=== PATIENT | female | born 1945 | race Caucasian/White ===

== ENCOUNTER 2017-10-23 22:46 | Emergency (ER) | payer OTHER ==
--- OUTSIDE RECORDS SUMMARY | 2017-10-23 22:48 | XMS REPORT | Continuity of Care Document ---
:1945 Author Organization Interface Problems Problem Status Onset Classification Date Comments Source Date Reported Diverticulosis Active Problem 03/15/2017 [facility] Diverticulitis Active Problem 03/15/2017 [facility] Morbid obesity Active Problem 03/15/2017 [facility] Medications Medication Details Route Status Patient Ordering Order Source Instructions Provider Date Citalopram 40 MG 40 mg=1 Active [facility] Tablet tab, PO, 018 [facility] [Celexa] Daily, 0 Refill(s) spironolactone 25 25 mg=1 Active [facility] mg oral tablet tab, PO, 018 [facility] BID, 0 Refill(s) atorvastatin 20 mg 20 mg=1 Active [facility] oral tablet tab, PO, 018 [facility] Daily, 0 Refill(s) cyclobenzaprine 10 10 mg=1 Active [facility] mg oral tablet tab, PO, 018 [facility] TID, 0 Refill(s) Klor-Con 10 10 mEq, Active [facility] PO, BID, 0 018 [facility] Refill(s) Furosemide 40 MG 40 mg=1 Active [facility] Tablet tab, PO, 018 [facility] Daily, 0 Refill(s) gabapentin 100 MG 300 mg=3 Active [facility] Capsule cap, PO, 018 [facility] TID, 0 Refill(s) Acetaminophen 325 1 tab, PO, Active [facility] / Hydrocodone Q6H, 0 018 [facility] Bitartrate 5 MG Refill(s) Oral Tablet [Hudson 5/325] Omeprazole PO, Daily, Active [facility] 0 018 [facility] Refill(s) Allergies, Adverse Reactions, Alerts Substance Category Reaction Severity Reaction Status Date Comments Source type Reported codeine Assertion Drug Active [facility] Zanaflex Assertion Drug Active [facility] Demerol HCl Assertion Drug Active [facility] Latex Assertion Drug Active [facility] Immunizations Immunization Date Given Site Status Last Updated Comments Source Results Order Results Value Reference Date Interpretation Comments Source Name Range Vital Signs Vital Sign Value Date Comments Source BMI Calculated 35.39 03/12/2017 [facility] Weight 89.176 03/12/2017 [facility] Height 158.75 cm 03/12/2017 [facility] Temperature Oral (F) 97.8 F 03/12/2017 [facility] Heart Rate 76 03/12/2017 [facility] Systolic (mm Hg) 164 03/12/2017 [facility] Diastolic (mm Hg) 83 03/12/2017 [facility] Encounters Location Location Encounter Encounter Reason Attending ADM DC Status Source Details Type Number For Provider Date Date Visit [facility] Phone [phone] 03/11 03/13 [facility] [id number] JULES GALLEGOS 03/[address] [facility] [id number] Jules Gallegos 03/12 03/13 [facility] /2017 [facility] Procedures Procedure Code Date Perfomer Comments Source Bladder operation [id number] [facility] Hysterectomy [id number] [facility] Operation [id number] [facility]
--- OUTSIDE RECORDS SUMMARY | 2017-10-23 22:48 | XMS REPORT | Summary of Care ---
:1945 Author Organization [facility] Sp[facility] Clinic [facility] Address [address] [place], [place] [id number]- Encounter [facility] Denezl(FIN) [id number] Date(s): 03/12/17 - 03/12/17 [facility] Spine [address] [phone] Discharge Disposition: Home or Self Care Attending Physician: Morris Bergman MD Vital Signs Most recent to oldest [Reference Range]: 1 Height 158.75 cm (03/12/17 4:05 PM) Temperature Oral [96.4-99.1 DegF] 97.8 DegF (03/12/17 4:05 PM) Blood Pressure [90-140/60-90 mmHg] 164/83 mmHg *HI* (03/12/17 4:05 PM) Peripheral Pulse Rate [60-100 bpm] 76 bpm (03/12/17 4:05 PM) Weight 89.176 kg (03/12/17 4:05 PM) Body Mass Index 35.39 m2 (03/12/17 4:05 PM) Problem List Condition Effective Dates Status Health Status Informant Diverticulosis(Confirmed) Active Diverticulitis(Confirmed) Active Morbid obesity(Confirmed) Active Allergies, Adverse Reactions, Alerts Substance Reaction Severity Status codeine Active Zanaflex Active Demerol HCl Active Latex Active Medications atorvastatin 20 mg oral tablet 20 mg=1 tab, PO, Daily, 0 Refill(s) Start Date: 03/12/17 Status: OrderedCeleXA 40 mg oral tablet 40 mg=1 tab, PO, Daily, 0 Refill(s) Start Date: 03/12/17 Status: Orderedcyclobenzaprine 10 mg oral tablet 10 mg=1 tab, PO, TID, 0 Refill(s) Start Date: 03/12/17 Status: Orderedfurosemide 40 mg oral tablet 40 mg=1 tab, PO, Daily, 0 Refill(s) Start Date: 03/12/17 Status: Orderedgabapentin 100 mg oral capsule 300 mg=3 cap, PO, TID, 0 Refill(s) Start Date: 03/12/17 Status: OrderedKlor-Con 10 10 mEq, PO, BID, 0 Refill(s) Start Date: 03/12/17 Status: OrderedNorco 5/325 oral tablet 1 tab, PO, Q6H, 0 Refill(s) Start Date: 03/12/17 Status: Orderedomeprazole PO, Daily, 0 Refill(s) Start Date: 03/12/17 Status: Orderedspironolactone 25 mg oral tablet 25 mg=1 tab, PO, BID, 0 Refill(s) Start Date: 03/12/17 Status: Ordered Results No data available for this section Immunizations No data available for this section Procedures Procedure Date Related Diagnosis Body Site Bladder operation Hysterectomy Operation Social History Social History Type Response Smoking Status Current every day smoker; Type: Cigarettes; Lives with someone who smokes; Cigarette Smoking Last 365 Days Yes; Reg Smoking Cessation Counseling No Assessment and Plan No data available for this section
--- OUTSIDE RECORDS SUMMARY | 2017-10-23 22:48 | XMS REPORT | Summary of Care ---
:1945 Author Organization [facility] Spine [facility] Address [address] [place], [place] [id number]- Encounter [facility] Encntr_alias(FIN) [id number] Date(s): 03/11/17 - 03/12/17 [facility] Spine [address] [phone] Vital Signs No data available for this section Problem List Condition Effective Dates Status Health Status Informant Diverticulosis(Confirmed) Active Diverticulitis(Confirmed) Active Morbid obesity(Confirmed) Active Allergies, Adverse Reactions, Alerts Substance Reaction Severity Status codeine Active Zanaflex Active Demerol HCl Active Latex Active Medications No data available for this section Results No data available for this section [...]
[2017-10-23] MEDS ORDERED: NA CHLORIDE 0.9% 1,000 ML ONE (23:32)
[2017-10-23] MEDS ORDERED: PANTOPRAZOLE 40 MG INJ ONE (23:32)
[2017-10-23] MEDS ORDERED: ONDANSETRON 4 MG/2 ML VIAL ONE (23:35)
[2017-10-23 23:43] LABS: Absolute Lymphocytes (CBC) 2.6 K/uL (0.7-4.9); Absolute Neutrophil 7.2 K/uL (1.8-8.0); Basophils % 0.5 % (0-1.3); Eosinophils % 1.2 % (0-4.4); Hematocrit 39.1 % (36.0-45.0); Lymphocytes % 23.8 % (15.3-44.8); MCH 30.3 pg (27.0-35.0); Monocytes % 8.7 % (3.3-12.3); RBC Red Blood Cell Count 4.39 M/uL (3.86-4.86)
[2017-10-24 00:02] LABS: Urine Glucose NEGATIVE (NEG)
[2017-10-24 00:03] LABS: Urine Blood NEGATIVE (NEG); Urine Protein NEGATIVE (NEG); Urine pH 5.5 (5.0-7.0)
[2017-10-24 00:07] LABS: Urine Bacteria <20 /HPF (<20); Urine Culture Reflex Order REFLEXED; Urine Mucus LIGHT /HPF (NONE SEEN); Urine RBC <5 /HPF (NONE SEEN)
[2017-10-24 00:08] LABS: ALT/SGPT 28 U/L (12-78); AST/SGOT 18 U/L (15-37); Albumin 3.9 g/dL (3.4-5.0); Alkaline Phosphatase 93 U/L (45-117); Amylase Level 61 U/L (25-115); BUN Blood Urea Nitrogen 23 mg/dL (7-18); Bicarbonate 26 mmol/L (21-32); Bilirubin Direct < 0.1 mg/dL (0-0.2); Bilirubin Total 0.2 mg/dL (0.2-1.0); Glucose Level 107 mg/dL (74-106); Lipase 226 U/L (73-393); Potassium 3.7 mmol/L (3.5-5.1); Protein, Total 7.3 g/dL (6.4-8.2); Sodium Level 140 mmol/L (136-145)
--- NOTE | 2017-10-24 03:36 | EDPHYS ---
Physician Documentation [facility] Name: Blanka Parker Age: 72 yrs Sex: Female : 1945 Arrival Date: 10/23/2017 Time: 22:46 Bed 23 Private MD: ED Physician Stevan Saucedo HPI: 10/23 23:10 This 72 yrs old Female presents to ER via Ambulatory with complaints of cp Abdominal Pain. 23:10 The patient presents with abdominal pain in the epigastric area, in the upper abdomen. cp 23:10 Onset: The symptoms/episode began/occurred 2 week(s) ago. cp 23:10 The symptoms radiate to back. Associated signs and symptoms: Pertinent positives: cp nausea, Pertinent negatives: anorexia, blood in stools, chest pain, constipation, vomiting. The symptoms are described as waxing/waning. Modifying factors: the symptoms are aggravated by pressure. Historical: - Allergies: 22:55 Codeine; aj 22:55 Demerol; aj 22:55 Latex, Natural Rubber; aj 22:55 Lidocaine; aj 22:55 PENICILLINS; aj 22:55 Zanaflex; aj 22:55 COLLAGENASE; aj 22:55 VENLAFAXINE; aj - Home Meds: 22:55 carvedilol Oral [Active]; Furosemide Oral as needed [Active]; Lasix Oral [Active]; aj losartan-hydrochlorothiazide Oral [Active]; Prilosec Oral [Active]; - PMHx: 22:55 degenerative joint disease; High Cholesterol; Hypertension; Diverticulitis; GERD; aj - PSHx: 22:55 Mesh bladder sling; Neck surgery; Bilat hand surgery; Cholecystectomy; Foot surgery; aj Ankle surgery; - Immunization history:: Adult Immunizations up to date. - Social history:: Smoking status: Patient/guardian denies using tobacco. - Ebola Screening: : Patient negative for fever greater than or equal to 101.5 degrees Fahrenheit, and additional compatible Ebola Virus Disease symptoms Patient denies exposure to infectious person Patient denies travel to an Ebola-affected area in the 21 days before illness onset No symptoms or risks identified at this time. ROS: 23:15 Constitutional: Negative for body aches, chills, fever, poor PO intake. cp 23:15 Eyes: Negative for injury, pain, redness, and discharge. cp 23:15 ENT: Negative for drainage from ear(s), ear pain, sore throat, difficulty swallowing, difficulty handling secretions. 23:15 Cardiovascular: Negative for edema, palpitations. 23:15 Respiratory: Negative for cough, dyspnea on exertion, shortness of breath, wheezing. 23:15 Abdomen/GI: Positive for abdominal pain, nausea, of the epigastric area and upper abdomen, Negative for vomiting, diarrhea, constipation, anorexia, black/tarry stool, rectal bleeding. 23:15 Back: Positive for radiated pain. 23:15 : Negative for urinary symptoms, flank pain. 23:15 Skin: Negative for cellulitis, rash. 23:15 Neuro: Negative for altered mental status, headache, syncope, near syncope, weakness. 23:15 All other systems are negative. Exam: 23:20 Constitutional: The patient appears in no acute distress, alert, awake, cp non-diaphoretic, non-toxic, well developed, well nourished. 23:20 Head/Face: Normocephalic, atraumatic. Eyes: Pupils equal round and reactive to light, cp extra-ocular motions intact. Lids and lashes normal. Conjunctiva and sclera are non-icteric and not injected. Cornea within normal limits. Periorbital areas with no swelling, redness, or edema. ENT: Nares patent. No nasal discharge, no septal abnormalities noted. Tympanic membranes are normal and external auditory canals are clear. Oropharynx with no redness, swelling, or masses, exudates, or evidence of obstruction, uvula midline. Mucous membranes moist. Chest/axilla: Normal chest wall appearance and motion. Nontender with no deformity. No lesions are appreciated. 23:20 Cardiovascular: Rate: normal, Rhythm: regular, Pulses: Pulses are 2+ in right radial artery and left radial artery. Edema: is not appreciated, JVD: is not appreciated. 23:20 Respiratory: the patient does not display signs of respiratory distress, Respirations: normal, no use of accessory muscles, no retractions, no splinting, no tachypnea, labored breathing, is not present, Breath sounds: are clear throughout, no decreased breath sounds, no stridor, no wheezing. 23:20 Abdomen/GI: Inspection: abdomen appears normal, Bowel sounds: active, all quadrants, Palpation: soft, in all quadrants, moderate abdominal tenderness, in the epigastric area, rebound tenderness, is not appreciated, voluntary guarding, is elicited in the epigastric area, involuntary guarding, is not appreciated. 23:20 Back: CVA tenderness, is absent. 23:20 Skin: cellulitis, is not appreciated, no rash present. 23:20 Neuro: Orientation: to person, place \T\ time. Mentation: lucid, able to follow commands, Cerebellar function: is grossly normal, Motor: moves all fours, strength is normal, Sensation: no obvious gross deficits. 10/24 00:02 ECG was reviewed by the Attending Physician. cp Vital Signs: 10/23 22:56 BP 152 / 74; Pulse 85; Resp 16; Temp 97.2; Pulse Ox 98% on R/A; Weight 83.91 kg; Height aj 5 ft. 2 in. (157.48 cm); 10/24 00:21 BP 120 / 63; Pulse 68; Pulse Ox 96% ; rv 02:02 BP 119 / 75; Pulse 73; Pulse Ox 99% on R/A; rv 02:49 BP 128 / 72; Pulse 71; Pulse Ox 95% on R/A; rv 03:26 BP 126 / 67; Pulse 71; Resp 18 S; Pulse Ox 93% on R/A; bb 10/23 22:56 Body Mass Index 33.84 (83.91 kg, 157.48 cm) aj MDM: 10/23 22:54 Patient medically screened. sawyer 10/24 00:00 Differential diagnosis: AAA, acute coronary syndrome, bowel obstruction, gastritis, cp gastroesophageal reflux disease, pancreatitis, Peptic Ulcer Disease, Perf. Duodenal Ulcer, Perf. Gastric Ulcer, Ureterolithiasis, urinary tract infection. 03:34 Data reviewed: vital signs, nurses notes, lab test result(s), EKG, radiologic studies, cp CT scan. 03:34 Test interpretation: by ED physician or midlevel provider: ECG, plain radiologic cp studies. Counseling: I had a detailed discussion with the patient and/or guardian regarding: the historical points, exam findings, and any diagnostic results supporting the discharge/admit diagnosis, lab results, radiology results, the need for outpatient follow up, a general surgeon, to return to the emergency department if symptoms worsen or persist or if there are any questions or concerns that arise at home. Response to treatment: the patient's symptoms have mildly improved after treatment, and as a result, I will discharge patient. Special discussion: Based on the patient's Hx, exam, and Dx evaluation, there is no indication for emergent surgery or inpatient Tx. It is understood by the patient/guardian that if the Sx's persist or worsen they need to return immediately for re-evaluation. ED course: VSS. Symptoms improved with meds. No vomiting observed in ED. Will discharge to home for continued monitoring. 10/23 23:09 Order name: Amylase, Serum cp 10/23 23:09 Order name: Basic Metabolic Panel cp 10/23 23:09 Order name: CBC with Diff 10/23 23:09 Order name: Creatinine for Radiology; Complete Time: 02:40 cp 10/23 23:09 Order name: Hepatic Function; Complete Time: 02:40 cp 10/23 23:09 Order name: Lipase; Complete Time: 02:40 cp 10/23 23:09 Order name: Urine Microscopic Only; Complete Time: 02:40 10/24 02:40 Interpretation: Normal except: UWBC 20-50; SQEPI 5-10. cp 10/23 23:09 Order name: XRAY Chest (1 view) cp 10/23 23:09 Order name: Troponin I; Complete Time: 02:40 cp 10/24 02:41 Interpretation: Within normal limits: TROP < 0.02. cp 10/23 23:09 Order name: Amylase Level; Complete Time: 02:40 EDMS 10/23 23:09 Order name: Basic Metabolic Panel; Complete Time: 02:40 EDMS 10/24 02:40 Interpretation: Normal except: CL 108; GLUC 107; BUN 23; GFR 55. cp 10/23 23:09 Order name: CBC with Automated Diff; Complete Time: 02:40 EDMS 10/24 02:41 Interpretation: Normal except: WBC 11.0. cp 10/23 23:36 Order name: Urine Dipstick--Ancillary (enter results); Complete Time: 02:40 ms 10/24 02:41 Interpretation: Normal except: UESTR 1+. cp 10/24 00:09 Order name: Urine Culture EDNE 10/23 23:09 Order name: IV Saline Lock; Complete Time: 23:39 cp 10/23 23:09 Order name: Labs collected and sent; Complete Time: 23:39 cp 10/23 23:09 Order name: Urine Dipstick-Ancillary (obtain specimen); Complete Time: 23:39 cp 10/23 23:09 Order name: EKG; Complete Time: 23:10 cp 10/23 23:09 Order name: EKG - Nurse/Tech; Complete Time: 00:02 cp 10/23 23:09 Order name: CT Abd/Pelvis - W/Contrast: may give oral contrast cp EC:02 Rate is 68 beats/min. Rhythm is regular. OR interval is normal. QRS interval is normal. cp QT interval is normal. T waves are Flattened in lead aVL. Interpreted by me. Reviewed by me. Administered Medications: 10/23 23:30 Drug: Zofran 4 mg Route: IVP; Site: left antecubital; rv 23:52 Follow up: Response: No adverse reaction rv 23:30 Drug: ProTONIX 40 mg Route: IVP; Site: left antecubital; rv 23:51 Follow up: Response: No adverse reaction rv 23:38 Drug: NS 0.9% 250 ml Route: IV; Rate: bolus; Site: left antecubital; rv 23:51 Drug: NS 0.9% 1000 ml Route: IV; Rate: 100 ml/hr; Site: left antecubital; rv 10/24 03:59 Follow up: IV Status: Order to discontinue infusion; IV Intake: 500ml mw 03:45 Drug: CarafATE 1 grams Route: PO; mw 04:00 Follow up: Response: No adverse reaction mw 03:48 Drug: Pepcid 20 mg Route: IVP; Site: left antecubital; mw 03:59 Follow up: Response: No adverse reaction Disposition: 07:26 Co-signature as Attending Physician, Stevan Saucedo MD I agree with the assessment and sawyer plan of care. Disposition: 10/24/17 03:35 Discharged to Home. Impression: Epigastric pain. - Condition is Stable. - Discharge Instructions: Gastritis, Adult, Gastroesophageal Reflux Disease, Adult. - Prescriptions for Carafate 1 gram Oral Tablet - take 1 tablet by ORAL route 4 times per day take on an empty stomach, beginning on waking and last dose at bedtime. dissolve in small amount warm water prior to ingestion; 100 tablet. Protonix 40 mg Oral Tablet - take 1 tablet by ORAL route once daily; 30 tablet. Zofran 4 mg Oral Tablet - take 1 tablet by ORAL route every 12 hours As needed; 20 tablet. - Medication Reconciliation Form, Thank You Letter, Antibiotic Education, Prescription Opioid Use form. - Follow up: Nithin Nieto MD; When: 2 - 3 days; Reason: Recheck today's complaints. - Problem is new. - Symptoms have improved. Signatures: Dispatcher [employer] EDMS Kristy Borja RN RN mw Myers, Amanda, RN RN aj Anderson, Corey, MD MD cha Page, Corey, PA PA Wesley Mccain RN RN rv Corrections: (The following items were deleted from the chart) 04:00 03:35 10/24/2017 03:35 Discharged to Home. Impression: Epigastric pain. Condition is mw Stable. Forms are Medication Reconciliation Form, Thank You Letter, Antibiotic Education, Prescription Opioid Use. Follow up: Nithin Nieto; When: 2 - 3 days; Reason: Recheck today's complaints. Problem is new. Symptoms have improved. cp
--- NOTE | 2017-10-24 03:36 | ER ---
Nurse's Notes [facility] Name: Blanka Parker Age: 72 yrs Sex: Female : 1945 Arrival Date: 10/23/2017 Time: 22:46 Bed 23 Private MD: Diagnosis: Epigastric pain Presentation: 10/23 22:53 Presenting complaint: Patient states: Epigastric pain for 2 weeks. Denies Nausea. aj Transition of care: patient was not received from another setting of care. Onset of symptoms was October 09, 2017. Risk Assessment: Do you want to hurt yourself or someone else? Patient reports no desire to harm self or others. Initial Sepsis Screen: Does the patient meet any 2 criteria? No. Patient's initial sepsis screen is negative. Does the patient have a suspected source of infection? No. Patient's initial sepsis screen is negative. Care prior to arrival: None. 22:53 Method Of Arrival: Ambulatory aj 22:53 Acuity: PETEY 3 aj Triage Assessment: 22:55 General: Appears in no apparent distress. comfortable, Behavior is calm, cooperative, aj appropriate for age. Pain: Complains of pain in epigastric area and right upper quadrant. Neuro: Level of Consciousness is awake, alert, obeys commands, Oriented to person, place, time, situation, Appropriate for age. Respiratory: Airway is patent Respiratory effort is even, unlabored, Respiratory pattern is regular, symmetrical. GI: Reports upper abdominal pain. Derm: Skin is intact, is healthy with good turgor, Skin is pink, warm \T\ dry. normal. Historical: - Allergies: 22:55 Codeine; aj 22:55 Demerol; aj 22:55 Latex, Natural Rubber; aj 22:55 Lidocaine; aj 22:55 PENICILLINS; aj 22:55 Zanaflex; aj 22:55 COLLAGENASE; aj 22:55 VENLAFAXINE; aj - Home Meds: 22:55 carvedilol Oral [Active]; Furosemide Oral as needed [Active]; Lasix Oral [Active]; aj losartan-hydrochlorothiazide Oral [Active]; Prilosec Oral [Active]; - PMHx: 22:55 degenerative joint disease; High Cholesterol; Hypertension; Diverticulitis; GERD; aj - PSHx: 22:55 Mesh bladder sling; Neck surgery; Bilat hand surgery; Cholecystectomy; Foot surgery; aj Ankle surgery; - Immunization history:: Adult Immunizations up to date. - Social history:: Smoking status: Patient/guardian denies using tobacco. - Ebola Screening: : Patient negative for fever greater than or equal to 101.5 degrees Fahrenheit, and additional compatible Ebola Virus Disease symptoms Patient denies exposure to infectious person Patient denies travel to an Ebola-affected area in the 21 days before illness onset No symptoms or risks identified at this time. Screenin:43 Abuse screen: Denies threats or abuse. Denies injuries from another. Nutritional rv screening: No deficits noted. Tuberculosis screening: No symptoms or risk factors identified. Fall Risk None identified. Assessment: 23:15 General: Appears in no apparent distress. comfortable, Behavior is calm, cooperative. rv 23:15 Pain: Complains of pain in abdomen. Neuro: Level of Consciousness is awake, alert, rv obeys commands, Oriented to person, place, time, situation. Cardiovascular: Capillary refill < 3 seconds. Respiratory: Airway is patent. GI: Bowel sounds present X 4 quads. Abd is soft and non tender X 4 quads. : No signs and/or symptoms were reported regarding the genitourinary system. EENT: No signs and/or symptoms were reported regarding the EENT system. Derm: Skin is intact. 10/24 00:22 Reassessment: Patient appears in no apparent distress at this time. Patient and/or rv family updated on plan of care and expected duration. Pain level reassessed. Patient is alert, oriented x 3, equal unlabored respirations, skin warm/dry/pink. AWAITING FOR CT SCAN. 02:15 Reassessment: Patient appears in no apparent distress at this time. Patient and/or rv family updated on plan of care and expected duration. Pain level reassessed. Patient is alert, oriented x 3, equal unlabored respirations, skin warm/dry/pink. 02:49 Reassessment: Patient appears in no apparent distress at this time. Patient and/or rv family updated on plan of care and expected duration. Pain level reassessed. Patient is alert, oriented x 3, equal unlabored respirations, skin warm/dry/pink. awaiting ct scan result. 03:25 Reassessment: Patient and/or family updated on plan of care and expected duration. Pain bb level reassessed. Patient is alert, oriented x 3, equal unlabored respirations, skin warm/dry/pink. pt resting quietly, awaiting CT scan results, spouse at bedside. 03:57 Reassessment: Patient and/or family updated on plan of care and expected duration. Pain mw level reassessed. Patient is alert, oriented x 3, equal unlabored respirations, skin warm/dry/pink. pt verbalized understanding of and agrees to plan of care discharge instructions given pt ambulated with steady gait to exit accompanied by spouse. Vital Signs: 10/23 22:56 BP 152 / 74; Pulse 85; Resp 16; Temp 97.2; Pulse Ox 98% on R/A; Weight 83.91 kg; Height aj 5 ft. 2 in. (157.48 cm); 10/24 00:21 BP 120 / 63; Pulse 68; Pulse Ox 96% ; rv 02:02 BP 119 / 75; Pulse 73; Pulse Ox 99% on R/A; rv 02:49 BP 128 / 72; Pulse 71; Pulse Ox 95% on R/A; rv 03:26 BP 126 / 67; Pulse 71; Resp 18 S; Pulse Ox 93% on R/A; bb 10/23 22:56 Body Mass Index 33.84 (83.91 kg, 157.48 cm) ED Course: 10/23 22:46 Patient arrived in ED. ds1 22:52 Lynette Contreras LVN is Primary Nurse. ed1 22:54 Triage completed. aj 22:54 Stevan Paiz PA is PHCP. cp 22:54 Stevan Saucedo MD is Attending Physician. cp 22:56 Arm band placed on left wrist. Patient placed in an exam room. aj 23:15 Inserted saline lock: 20 gauge in left antecubital area, using aseptic technique. rv 23:18 Primary Nurse role handed off by Lynette Contreras LVN ed1 23:33 XRAY Chest (1 view) In Process Unspecified. EDMS 23:43 Patient has correct armband on for positive identification. Placed in gown. Bed in low rv position. Call light in reach. Side rails up X 1. Adult w/ patient. manager title on. Pulse ox on. NIBP on. 10/24 00:01 Oral contrast given. eh 01:55 CT Abd/Pelvis - W/Contrast: may give oral contrast In Process Unspecified. EDMS 02:15 Awaiting radiology results. rv 03:25 Rachna Jade, SCOTTIE is Primary Nurse. bb 03:34 Nithin Nieto MD is Referral Physician. cp 03:58 No provider procedures requiring assistance completed. IV discontinued, intact, mw bleeding controlled, No redness/swelling at site. Pressure dressing applied. Administered Medications: 10/23 23:30 Drug: Zofran 4 mg Route: IVP; Site: left antecubital; rv 23:52 Follow up: Response: No adverse reaction rv 23:30 Drug: ProTONIX 40 mg Route: IVP; Site: left antecubital; rv 23:51 Follow up: Response: No adverse reaction rv 23:38 Drug: NS 0.9% 250 ml Route: IV; Rate: bolus; Site: left antecubital; rv 23:51 Drug: NS 0.9% 1000 ml Route: IV; Rate: 100 ml/hr; Site: left antecubital; rv 10/24 03:59 Follow up: IV Status: Order to discontinue infusion; IV Intake: 500ml mw 03:45 Drug: CarafATE 1 grams Route: PO; mw 04:00 Follow up: Response: No adverse reaction mw 03:48 Drug: Pepcid 20 mg Route: IVP; Site: left antecubital; mw 03:59 Follow up: Response: No adverse reaction mw Intake: 03:59 IV: 500ml; Total: 500ml. mw Outcome: 03:35 Discharge ordered by MD. cp 03:58 Discharged to home ambulatory, with family. mw 03:58 Condition: stable 03:58 Discharge instructions given to patient, Instructed on discharge instructions, follow up and referral plans. medication usage, Demonstrated understanding of instructions, follow-up care, medications, Prescriptions given X 3. 04:00 Patient left the ED. mw Addendum: 10/28/2017 12:12 Addendum: Culture Results: Positive urine culture. Patient was not prescribed d m5 antibiotics at discharge. Report given to IZAIAH for further evaluation and then to pneumatic tube repairer for follow up with patient. Phone call Attempt #1 pt not at home. Left message with person that answered the phone. 10/31/2017 11:52 Addendum: Culture Results: Phone call Attempt #2 no answer no call back Certified l a1 letter sent to listed address for patient. Signatures: Dispatcher [employer] YANG Perez Diana, RN RN dm5 Jonh, Kristy, RN RN Ivis Henning, RN RN helena Mc, Lai Zheng, Cindi ds1 Rachna Jade, RN RN Lynette Solano, POLICE SERGEANT POLICE SERGEANT ed1 Niall Chow, RN RN la1 Stevan Paiz, VASILE Sanchez, Wesley, RN RN rv
[2017-10-24] MEDS ORDERED: FAMOTIDINE 20 MG/2 ML VIAL IV ONE (03:49)
[2017-10-24] MEDS ORDERED: SUCRALFATE 1 GM TABLET ONE (03:49)
[2017-10-24 04:06] VITALS: TEMP 97.2
[2017-10-24 04:09] VITALS: BP 126/67; O2SAT 93
--- NOTE | 2017-10-24 07:02 | EKG ---
Test Date: 2017-10-23 Test Time: 23:53:42 [employer] Sales Representative: MEASUREMENT RESULTS: Intervals: Rate: 68 PA: 196 QRSD: 80 QT: 422 QTc: 448 [place]: P: 55 PA: 196 QRS: 33 T: 65 INTERPRETIVE STATEMENTS: Normal sinus rhythm Normal ECG Compared to ECG 01/13/2016 04:08:56 Myocardial infarct finding no longer present Electronically Signed On 10-24-17 07:01:25 CDT by Anupam Perry
--- NOTE | 2017-10-24 07:59 | RAD REPORT ---
EXAM DESCRIPTION: RAD - Chest Single View - 10/23/2017 11:32 pm CLINICAL HISTORY: upper abdomen pain Chest pain. COMPARISON: CHEST SINGLE VIEW dated 05/20/2015; CHEST SINGLE VIEW dated 02/14/2015; CHEST SINGLE VIEW dated 09/15/2014; CHEST SINGLE VIEW dated 04/13/2014 FINDINGS: Portable technique limits examination quality. The lungs are grossly clear. The heart is mildly prominent in size. No displaced fractures. IMPRESSION: No acute intrathoracic process suspected.
--- NOTE | 2017-10-24 08:28 | RAD REPORT ---
EXAM DESCRIPTION: CTAbdomen Pelvis W Contrast - 10/24/2017 3:47 am CLINICAL HISTORY: Abdominal pain. upper abdomen pain COMPARISON: Abdomen Pelvis W Contrast dated 06/19/2016; Abdomen Pelvis W Contrast dated 03/20/2016 ; Abdomen Pelvis W Contrast dated 01/13/2016; CT ABD PELVIS W CONTRAST dated 05/20/2015 TECHNIQUE: Biphasic CT imaging of the abdomen and pelvis was performed with 100 ml non-ionic IV cont rast. All CT scans are performed using dose optimization technique as appropriate and may include automated exposure control or mA/KV adjustment according to patient size. FINDINGS: The lung bases are clear.Cholecystectomy clips. The liver, spleen, pancreas, adrenal glands and right kidney are within normal limits. Small 2-3 mm s tones suspect in the left kidney without hydronephrosis. Several benign left renal cysts are present. No bowel obstruction, free air, free fluid or abscess. Prominent sigmoid diverticulosis is present. No evidence of significant lymphadenopathy. Degenerative changes are present at L5-S1 with grade 1 anterolisthesis noted. Postsurgical changes ar e present along the pelvic floor. Hysterectomy. IMPRESSION: No acute intra-abdominal or pelvic finding. Left nephrolithiasis without hydronephrosis.
== END 2017-10-24 04:00 | disposition home or self-care (01) ==
LOC: ER 22:46
DX: R10.13 Epigastric pain (principal); I10 Essential (primary) hypertension; E78.00 Pure hypercholesterolemia, unspecified; K21.9 Gastro-esophageal reflux disease without esophagitis; Z88.0 Allergy status to penicillin; Z88.5 Allergy status to narcotic agent; Z88.8 Allergy status to other drugs, medicaments and biological substances; Z91.040 Latex allergy status
CPT/HCPCS: 36415; 71045; 74177; 80048; 80076; 82150; 83690; 84484; 85025; 87077; 87086; 87088; 87186; 93005; C9113; J2405; J7030; Q9967; 81003; 81015; 96361; 96374; 96375; 99284

== ENCOUNTER 2017-12-26 19:22 | Emergency (ER) | payer OTHER ==
--- OUTSIDE RECORDS SUMMARY | 2017-12-26 19:24 | XMS REPORT | Continuity of Care Document ---
[...] Neuro Bitartrate 5 MG Refill(s) Oral Tablet [[place]t 5/325] Omeprazole PO, Daily, Active Mischer 0 [...] Date Comments Source BMI Calculated 35.39 03/12/2017 [facility] Weight 89.176 03/12/2017 [facility] Height 158.75 cm 03/12/2017 [facility] Temperature Oral (F) 97.8 F 03/12/2017 [facility] Heart Rate 76 03/12/2017 [facility] Systolic (mm Hg) 164 03/12/2017 [facility] Diastolic (mm Hg) 83 03/12/2017 [facility] Encounters Location Location Encounter Encounter Reason Attending ADM DC Status Source Details Type Number For Provider Date Date Visit [facility] Phone [id number] 03/11 03/13 [facility] Message [facility] [id number] JULES GALLEGOS 03/12 [facility] [id number] Jules Gallegos 03/12 03/13 [facility] /2017 [facility] Procedures Procedure Code Date Perfomer Comments Source Bladder operation [id number] [facility] Hysterectomy [id number] [facility] Operation [id number] [facility]
[2017-12-26] MEDS ORDERED: ASPIRIN 81 MG CHEWABLE TABLET ONE (20:24)
[2017-12-26] MEDS ORDERED: PANTOPRAZOLE 40 MG INJ ONE (20:24)
[2017-12-26 20:48] LABS: Absolute Lymphocytes (CBC) 2.1 K/uL (0.7-4.9); Absolute Monocytes 0.5 K/uL (0.1-1.3); Basophils % 0.6 % (0-1.3); Eosinophils % 2.9 % (0-4.4); Hematocrit 36.3 % (36.0-45.0); Lymphocytes % 26.6 % (15.3-44.8); MCH 31.4 pg (27.0-35.0); MCV 89.8 fL (80-100); MPV 8.2 fL (7.6-11.3); Monocytes % 6.5 % (3.3-12.3); RBC Red Blood Cell Count 4.04 M/uL (3.86-4.86)
[2017-12-26 20:49] LABS: Protime INR 1.22
[2017-12-26 21:13] LABS: ALT/SGPT 29 U/L (12-78); AST/SGOT 17 U/L (15-37); Albumin 3.4 g/dL (3.4-5.0); Alkaline Phosphatase 90 U/L (45-117); BUN Blood Urea Nitrogen 14 mg/dL (7-18); Bicarbonate 25 mmol/L (21-32); Bilirubin Direct 0.1 mg/dL (0-0.2); Bilirubin Total 0.3 mg/dL (0.2-1.0); Glucose Level 131 mg/dL (74-106); Lipase 173 U/L (73-393); Magnesium 1.6 mg/dL (1.8-2.4); NT PRO-BNP 23 pg/mL (<125); Potassium 3.7 mmol/L (3.5-5.1); Protein, Total 6.9 g/dL (6.4-8.2); Sodium Level 141 mmol/L (136-145); Troponin (Emerg Dept Use Only) < 0.02 ng/mL (0.0-0.045)
--- NOTE | 2017-12-26 21:19 | RAD REPORT ---
EXAM DESCRIPTION: RAD - Chest Single View - 12/26/2017 8:39 pm CLINICAL HISTORY: Cough and congestion, chest pain COMPARISON: October 23 TECHNIQUE: AP portable chest image was obtained 2017 hours . FINDINGS: No focal lung parenchymal process. Interstitial markings are mildly prominent but not efrain rly different. No failure or volume overload. Heart size is upper normal, similar to comparison. Mary cardial fat pads are present. No vascular engorgement. No measurable pleural effusion and no pneumoth orax. No acute bony abnormality seen. No acute aortic findings suspected. IMPRESSION: No acute cardiopulmonary process. Chest findings are stable from October 23.
[2017-12-26] MEDS ORDERED: ACETAMINOPHEN 325 MG TABLET ONE (22:27)
[2017-12-26] MEDS ORDERED: MAGNESIUM SULFATE 1 gm IVPB 1 GM/100 ML BAG IV ONE (23:10)
--- NOTE | 2017-12-27 01:16 | ER ---
Nurse's Notes [facility] Name: Blanka Parker Age: 72 yrs Sex: Female : 1945 Arrival Date: 12/26/2017 Time: 19:24 Bed 30 Private MD: Maxim Trujillo Diagnosis: Chest pain, unspecified;Gastro-esophageal reflux disease Presentation: 12/26 19:40 Presenting complaint: Patient states: cough, congestion, burning in throat and chest ak1 pain with cough since . pt taking doxycycline twice daily. Transition of care: patient was not received from another setting of care. Onset of symptoms is unknown. Risk Assessment: Do you want to hurt yourself or someone else? Patient reports no desire to harm self or others. Initial Sepsis Screen: Does the patient meet any 2 criteria? No. Patient's initial sepsis screen is negative. Does the patient have a suspected source of infection? No. Patient's initial sepsis screen is negative. Care prior to arrival: None. 19:40 Method Of Arrival: Ambulatory ak1 19:40 Acuity: PETEY 3 ak1 Triage Assessment: 19:40 General: Appears in no apparent distress. Behavior is cooperative, anxious. ak1 Historical: - Allergies: 19:40 Codeine; ak1 19:40 COLLAGENASE; ak1 19:40 Demerol; ak1 19:40 Lidocaine; ak1 19:40 Zanaflex; ak1 19:40 VENLAFAXINE; ak1 19:40 PENICILLINS; ak1 19:40 Latex, Natural Rubber; ak1 - Home Meds: 19:40 carvedilol Oral [Active]; Furosemide Oral as needed [Active]; Lasix Oral [Active]; ak1 losartan-hydrochlorothiazide Oral [Active]; Prilosec Oral [Active]; - PMHx: 19:40 degenerative joint disease; Diverticulitis; GERD; High Cholesterol; Hypertension; ak1 - PSHx: 19:40 Mesh bladder sling; Neck surgery; Bilat hand surgery; Cholecystectomy; Foot surgery; ak1 Ankle surgery; - Immunization history:: Adult Immunizations unknown. - Social history:: Smoking status: Patient uses tobacco products, smokes one pack cigarettes per day. - Ebola Screening: : No symptoms or risks identified at this time. Screenin:42 Abuse screen: Denies threats or abuse. Denies injuries from another. Nutritional ak1 screening: No deficits noted. Tuberculosis screening: No symptoms or risk factors identified. Fall Risk None identified. 22:25 The patient has not been NPO before screening. The patient is alert, able to follow tl3 commands. The patient does not exhibit slurred or garbled speech The patient is not exhibiting difficulty speaking. The patient does not exhibit difficulty understanding words. The patient is able to swallow own secretions with no drooling or need for suction. Patient tolerated one teaspoon of water. No drooling, immediate coughing, gurgling, or clearing of the throat was noted. The patient tolerated 90mL of water. No drooling, immediate coughing, gurgling, or clearing of the throat was noted. The patient passed the bedside swallow screening. Oral medications may be given as ordered. Contact Physician for further diet orders. Provider notified of bedside swallow screening results: Stevan BURNETTE. Assessment: 20:04 General: Appears uncomfortable, well groomed, well developed, well nourished, Behavior tl3 is calm, cooperative, appropriate for age. Pain: Complains of pain in esophageal pain. Neuro: Level of Consciousness is awake, alert, obeys commands, Oriented to person, place, time, situation, Appropriate for age. Cardiovascular: Patient's skin is warm and dry. Respiratory: Airway is patent Respiratory effort is even, unlabored, Respiratory pattern is regular, symmetrical. GI: Reports epigastric pain, indigestion, getting worse for the last couple of weeks, burning goes all the way up and causes her to cough and have SOB, taking Prilosec, Zantac, Mylanta and Tums to no avail. : No signs and/or symptoms were reported regarding the genitourinary system. Derm: No signs and/or symptoms reported regarding the dermatologic system. Musculoskeletal: No signs and/or symptoms reported regarding the musculoskeletal system. 20:04 Reassessment: pain in the back of the neck, loss of energy due to lack of sleep and tl3 occasional chills. 22:22 Reassessment: No changes from previously documented assessment. Patient and/or family tl3 updated on plan of care and expected duration. Pain level reassessed. Patient is alert, oriented x 3, equal unlabored respirations, skin warm/dry/pink. pt reports pain to the right temporal area, provider notified and orders recieved. 23:48 Reassessment: Patient appears in no apparent distress at this time. No changes from tl3 previously documented assessment. Patient and/or family updated on plan of care and expected duration. Pain level reassessed. Patient is alert, oriented x 3, equal unlabored respirations, skin warm/dry/pink. 12/27 00:27 Reassessment: Patient appears in no apparent distress at this time. No changes from tl3 previously documented assessment. Patient and/or family updated on plan of care and expected duration. Pain level reassessed. Patient is alert, oriented x 3, equal unlabored respirations, skin warm/dry/pink. sed rate and troponin drawn and sent to lab. Vital Signs: 12/26 19:40 BP 130 / 72; Pulse 102; Resp 18; Temp 98.7(O); Pulse Ox 97% on R/A; Weight 83.91 kg ak1 (R); Height 5 ft. 2 in. (157.48 cm) (R); Pain 2/10; 21:17 BP 118 / 56; Pulse 78; Resp 18; Pulse Ox 97% on R/A; mg2 22:22 BP 111 / 65; Pulse 76; Resp 18; Pulse Ox 99% on R/A; tl3 23:48 BP 125 / 65; Pulse 78; Resp 18; Pulse Ox 97% on R/A; tl3 12/27 00:27 BP 122 / 65; Pulse 74; Resp 18; Pulse Ox 97% on R/A; tl3 12/26 19:40 Body Mass Index 33.84 (83.91 kg, 157.48 cm) ak1 ED Course: 12/26 19:24 Patient arrived in ED. es 19:25 Maxim Trujillo MD is Private Physician. es 19:40 Arm band placed on Patient placed in waiting room, Patient notified of wait time. ak1 19:41 Triage completed. ak1 19:54 Stevan Paiz PA is PHCP. cp 19:54 Stevan Saucedo MD is Attending Physician. cp 20:04 Arelis Bennett, SCOTTIE is Primary Nurse. tl3 20:04 Patient has correct armband on for positive identification. Placed in gown. Bed in low tl3 position. Call light in reach. Side rails up X 1. Pulse ox on. NIBP on. 20:04 No provider procedures requiring assistance completed. tl3 20:39 XRAY Chest (1 view) In Process Unspecified. EDMS 21:18 Inserted saline lock: 20 gauge in right antecubital area, using aseptic technique. mg2 Blood collected. 22:[address] mw3 22:56 CT completed. Patient tolerated procedure well. Patient moved back from CT. mw3 22:57 CT Chest W/ Con In Process Unspecified. EDMS 12/27 01:15 Александр Melendez MD is Referral Physician. cp 01:15 Maxim Trujillo MD is Referral Physician. cp 01:33 IV discontinued, intact, bleeding controlled, No redness/swelling at site. Pressure mg2 dressing applied. Administered Medications: 12/26 20:19 Drug: Aspirin Chewable Tablet 324 mg Route: PO; mg2 22:24 Follow up: Response: No adverse reaction tl3 20:44 Drug: ProTONIX 40 mg Route: IVP; Site: right antecubital; mg2 22:24 Follow up: Response: No adverse reaction tl3 22:24 Drug: Tylenol 650 mg Route: PO; tl3 12/27 00:28 Follow up: Response: No adverse reaction tl3 12/26 23:08 Drug: Magnesium Sulfate 1 grams Route: IVPB; Infused Over: 1 hrs; Site: right mg2 antecubital; Delivery: Primary tubing; 12/27 00:28 Follow up: IV Status: Completed infusion; IV Intake: 100ml tl3 Intake: 00:28 IV: 100ml; Total: 100ml. tl3 Outcome: 01:16 Discharge ordered by . cp 01:33 Discharged to home ambulatory, with family. mg2 01:33 Condition: stable 01:33 Discharge instructions given to patient, family, Instructed on discharge instructions, follow up and referral plans. medication usage, Demonstrated understanding of instructions, follow-up care, medications, Prescriptions given X 2. 01:34 Patient left the ED. mg2 Signatures: Dispatcher [employer] Jacquelyn Arteaga Amber RN RN ak1 Stevan Paiz PA PA cp Lowrey, Tammy, RN RN tl3 Lucian Bain RN RN mg2 Maria C Yu mw3
--- NOTE | 2017-12-27 01:17 | EDPHYS ---
Physician Documentation [facility] Name: Blanka Parker Age: 72 yrs Sex: Female : 1945 Arrival Date: 12/26/2017 Time: 19:24 Bed 30 Private MD: Maxim Trujillo ED Physician Stevan Saucedo HPI: 12/26 20:00 This 72 yrs old Female presents to ER via Ambulatory with complaints of Cough.cp 20:00 The patient or guardian reports cough, that is intermittent, with productive sputum, cp that is white. Onset: The symptoms/episode began/occurred 2 week(s) ago. 20:00 Severity of symptoms: in the emergency department the symptoms are unchanged, despite cp home interventions, patient reports taking previously prescribed doxycycline for 1 week [employer]. 20:00 Associated signs and symptoms: Pertinent positives: chest pain, with cough, diarrhea, cp sore throat, difficulty swallowing solids. patient reports she feels like GERD is worse, Pertinent negatives: diarrhea, fever, sore throat, vomiting. Historical: - Allergies: 19:40 Codeine; ak1 19:40 COLLAGENASE; ak1 19:40 Demerol; ak1 19:40 Lidocaine; ak1 19:40 Zanaflex; ak1 19:40 VENLAFAXINE; ak1 19:40 PENICILLINS; ak1 19:40 Latex, Natural Rubber; ak1 - Home Meds: 19:40 carvedilol Oral [Active]; Furosemide Oral as needed [Active]; Lasix Oral [Active]; ak1 losartan-hydrochlorothiazide Oral [Active]; Prilosec Oral [Active]; - PMHx: 19:40 degenerative joint disease; Diverticulitis; GERD; High Cholesterol; Hypertension; ak1 - PSHx: 19:40 Mesh bladder sling; Neck surgery; Bilat hand surgery; Cholecystectomy; Foot surgery; ak1 Ankle surgery; - Immunization history:: Adult Immunizations unknown. - Social history:: Smoking status: Patient uses tobacco products, smokes one pack cigarettes per day. - Ebola Screening: : No symptoms or risks identified at this time. ROS: 20:05 Constitutional: Negative for body aches, chills, fever, poor PO intake. cp 20:05 Eyes: Negative for injury, pain, redness, and discharge. cp 20:05 ENT: Positive for difficulty swallowing, Negative for drainage from ear(s), ear pain, sinus pain, sore throat, difficulty handling secretions. 20:05 Neck: Negative for pain with movement, pain at rest, swelling, tenderness. 20:05 Cardiovascular: Positive for chest pain, with cough, Negative for edema, palpitations. 20:05 Respiratory: Positive for cough, with white sputum, Negative for hemoptysis, orthopnea, wheezing. 20:05 Abdomen/GI: Negative for nausea, vomiting, and diarrhea, constipation, anorexia, black/tarry stool, rectal bleeding. 20:05 Back: Negative for pain at rest, pain with movement. 20:05 : Negative for urinary symptoms. 20:05 Skin: Negative for cellulitis, rash. 20:05 Neuro: Negative for altered mental status, headache, syncope, near syncope, visual changes, weakness. 20:05 All other systems are negative. Exam: 20:12 Constitutional: The patient appears in no acute distress, alert, awake, cp non-diaphoretic, non-toxic, well developed, well nourished. 20:12 Head/Face: Normocephalic, atraumatic. Eyes: Pupils equal round and reactive to light, cp extra-ocular motions intact. Lids and lashes normal. Conjunctiva and sclera are non-icteric and not injected. Cornea within normal limits. Periorbital areas with no swelling, redness, or edema. ENT: Nares patent. No nasal discharge, no septal abnormalities noted. Tympanic membranes are normal and external auditory canals are clear. Oropharynx with no redness, swelling, or masses, exudates, or evidence of obstruction, uvula midline. Mucous membranes moist. Neck: Trachea midline, no thyromegaly or masses palpated, and no cervical lymphadenopathy. Supple, full range of motion without nuchal rigidity, or vertebral point tenderness. No Meningismus. Chest/axilla: Normal chest wall appearance and motion. Nontender with no deformity. No lesions are appreciated. 20:12 Cardiovascular: Rate: tachycardic, Rhythm: regular, Pulses: Pulses are 2+ in right radial artery and left radial artery. Edema: is not appreciated, JVD: is not appreciated. 20:12 Respiratory: the patient does not display signs of respiratory distress, Respirations: normal, no use of accessory muscles, no retractions, no splinting, no tachypnea, labored breathing, is not present, Breath sounds: are clear throughout, no decreased breath sounds, no stridor, no wheezing. 20:12 Abdomen/GI: Inspection: abdomen appears normal, Bowel sounds: active, all quadrants, Palpation: soft, in all quadrants, nontender, in all quadrants, rebound tenderness, is not appreciated, voluntary guarding, is not appreciated, involuntary guarding, is not appreciated. 20:12 Back: pain, is absent, ROM is normal. 20:12 Skin: cellulitis, is not appreciated, no rash present. 20:12 Neuro: Orientation: to person, place \T\ time. Mentation: is normal, Cerebellar function: is grossly normal, Motor: moves all fours, strength is normal, Sensation: no obvious gross deficits, Gait: is steady. 20:35 ECG was reviewed by the Attending Physician. cp 12/27 00:50 ECG was reviewed by the Attending Physician. cp Vital Signs: 12/26 19:40 BP 130 / 72; Pulse 102; Resp 18; Temp 98.7(O); Pulse Ox 97% on R/A; Weight 83.91 kg ak1 (R); Height 5 ft. 2 in. (157.48 cm) (R); Pain 2/10; 21:17 BP 118 / 56; Pulse 78; Resp 18; Pulse Ox 97% on R/A; mg2 22:22 BP 111 / 65; Pulse 76; Resp 18; Pulse Ox 99% on R/A; tl3 23:48 BP 125 / 65; Pulse 78; Resp 18; Pulse Ox 97% on R/A; tl3 12/27 00:27 BP 122 / 65; Pulse 74; Resp 18; Pulse Ox 97% on R/A; tl3 12/26 19:40 Body Mass Index 33.84 (83.91 kg, 157.48 cm) ak1 MDM: 12/26 19:54 Patient medically screened. cp 12/27 01:15 Data reviewed: vital signs, nurses notes, lab test result(s), EKG, radiologic studies, cp CT scan, plain films, and as a result, I will discharge patient. 01:15 Test interpretation: by ED physician or midlevel provider: ECG, plain radiologic cp studies. Special discussion: Based on the patient's history, exam, and Dx evaluation, there is no indication for emergent intervention or inpatient Tx. It is understood by the patient/guardian that if the Sx's persist or worsen they need to return immediately for re-evaluation. ED course: VSS. Symptoms improved with meds. Will discharge to home for continued monitoring. 12/26 20:10 Order name: Basic Metabolic Panel; Complete Time: 21:37 cp 12/26 21:37 Interpretation: Normal except: CL 109; GLUC 131; GFR 55. cp 12/26 20:10 Order name: CBC with Diff; Complete Time: 21:37 cp 12/26 20:10 Order name: LFT's; Complete Time: 21:37 cp 12/26 21:38 Interpretation: Normal except: A/G 1.0. cp 12/26 20:10 Order name: Magnesium; Complete Time: 21:37 cp 12/26 22:27 Interpretation: Abnormal: MG 1.6. cp 12/26 20:10 Order name: NT PRO-BNP; Complete Time: 21:37 cp 12/26 20:10 Order name: PT-INR; Complete Time: 21:37 cp 12/26 22:28 Interpretation: Normal except: PT 14.4. cp 12/26 20:10 Order name: Troponin (emerg Dept Use Only); Complete Time: 21:37 cp 12/26 21:39 Interpretation: Within normal limits: TROPED < 0.02. cp 12/26 20:10 Order name: XRAY Chest (1 view); Complete Time: 21:37 cp 12/26 20:10 Order name: Lipase; Complete Time: 21:37 cp 12/26 22:32 Order name: CT Chest W/ Con cp 12/27 00:27 Order name: Troponin (Emerg Dept Use Only); Complete Time: 01:14 EDMS 12/27 00:27 Order name: Sedimentation Rate, Westergren; Complete Time: 01:14 EDMS 12/26 20:10 Order name: EKG; Complete Time: 20:11 cp 12/26 20:10 Order name: Cardiac monitoring; Complete Time: 20:51 cp 12/26 20:10 Order name: EKG - Nurse/Tech; Complete Time: 20:51 cp 12/26 20:10 Order name: IV Saline Lock; Complete Time: 20:51 cp 12/26 20:10 Order name: Labs collected and sent; Complete Time: 20:52 cp 12/26 20:10 Order name: O2 Per Protocol; Complete Time: 20:52 cp 12/26 20:10 Order name: O2 Sat Monitoring; Complete Time: 20:52 cp 12/26 20:10 Order name: Swallow Screen; Complete Time: 22:25 cp 12/27 00:06 Order name: EKG - Nurse/Tech; Complete Time: 01:03 cp EC/19 20:35 Rate is 87 beats/min. Rhythm is regular. OR interval is normal. QRS interval is normal. cp QT interval is normal. Interpreted by me. Reviewed by me. 12/27 00:50 Rate is 76 beats/min. Rhythm is regular. OR interval is prolonged at 204 msec. QRS cp interval is normal. QT interval is normal. Clinical impression: Abnormal EKG without significant change. Interpreted by me. Reviewed by me. Administered Medications: 12/26 20:19 Drug: Aspirin Chewable Tablet 324 mg Route: PO; mg2 22:24 Follow up: Response: No adverse reaction tl3 20:44 Drug: ProTONIX 40 mg Route: IVP; Site: right antecubital; mg2 22:24 Follow up: Response: No adverse reaction tl3 22:24 Drug: Tylenol 650 mg Route: PO; tl3 12/27 00:28 Follow up: Response: No adverse reaction tl3 12/26 23:08 Drug: Magnesium Sulfate 1 grams Route: IVPB; Infused Over: 1 hrs; Site: right mg2 antecubital; Delivery: Primary tubing; 12/27 00:28 Follow up: IV Status: Completed infusion; IV Intake: 100ml tl3 Disposition: 06:45 Co-signature as Attending Physician, Stevan Saucedo MD I agree with the assessment and sawyer plan of care. Disposition: 12/27/17 01:16 Discharged to Home. Impression: Chest pain, unspecified, Gastro-esophageal reflux disease. - Condition is Stable. - Discharge Instructions: Nonspecific Chest Pain, Food Choices for Gastroesophageal Reflux Disease, Adult, Gastroesophageal Reflux Disease, Adult, Aspirin and Your Heart. - Prescriptions for Carafate 1 gram Oral Tablet - take 1 tablet by ORAL route 4 times per day for 14-21 days take on an empty stomach, beginning on waking and last dose at bedtime. dissolve tablet in small amount warm water prior to ingestion; 100 tablet. Zofran 4 mg Oral Tablet - take 1 tablet by ORAL route every 12 hours As needed; 20 tablet. - Medication Reconciliation Form, Thank You Letter, Antibiotic Education, Prescription Opioid Use form. - Follow up: Александр Melendez MD; When: 2 - 3 days; Reason: Recheck today's complaints. Follow up: Maxim Trujillo MD; When: 2 - 3 days; Reason: Recheck today's complaints. - Problem is new. - Symptoms have improved. Signatures: Dispatcher [employer] EDWI Stevan Saucedo MD MD cha Krenek, Amber RN RN ak1 Stevan Paiz PA PA cp Arelis Bennett, RN RN tl3 Lucian Bain RN RN mg2 Corrections: (The following items were deleted from the chart) 01:19 00:43 WESTERGREN SEDRATE+H.LAB.BRZ ordered. EDMS EDMS 01:20 00:43 TROPONIN I+C.LAB.BRZ ordered. EDWI EDMS 01:34 01:16 12/27/2017 01:16 Discharged to Home. Impression: Chest pain, unspecified; mg2 Gastro-esophageal reflux disease. Condition is Stable. Forms are Medication Reconciliation Form, Thank You Letter, Antibiotic Education, Prescription Opioid Use. Follow up: Александр Melendez; When: 2 - 3 days; Reason: Recheck today's complaints. Follow up: Maxim Trujillo; When: 2 - 3 days; Reason: Recheck today's complaints. Problem is new. Symptoms have improved. cp
[2017-12-27 01:59] VITALS: TEMP 98.7
[2017-12-27 02:03] VITALS: O2SAT 97
[2017-12-27 02:04] VITALS: BP 122/65
--- NOTE | 2017-12-27 08:37 | RAD REPORT ---
EXAM DESCRIPTION: CT - Thorax W/ Con - 12/27/2017 6:31 am CLINICAL HISTORY: Cough and dysphasia/chest and COMPARISON: [address] abdomen TECHNIQUE: Computed axial tomography of the chest was obtained. 100 cc Isovue 300 was administered i ntravenously. Preliminary report was generated by virtual radiologic and reviewed prior to this dicta tion All CT scans are performed using dose optimization technique as appropriate and may include automated exposure control or mA/KV adjustment according to patient size. FINDINGS: A couple of tiny lung nodules bilaterally are unchanged and benign. No mediastinal or hilar lymphadenopathy is seen. A pleural effusion is not present. A pericardial effusion is not seen Small right adrenal nodule is unchanged and is benign. No gross abnormality of the esophagus is seen IMPRESSION: No acute abnormality is displayed
--- NOTE | 2017-12-28 17:36 | EKG ---
Test Date: 2017-12-27 Test Time: 00:47:29 Cap Inspector: TL MEASUREMENT RESULTS: Intervals: Rate: 76 NC: 204 QRSD: 74 QT: 406 QTc: 456 [place]: P: 53 NC: 204 QRS: -12 T: 59 INTERPRETIVE STATEMENTS: Normal sinus rhythm Inferior infarct, age undetermined Abnormal ECG Compared to ECG 12/26/2017 20:28:56 No significant changes Electronically Signed On 12-28-17 17:33:51 CDT by Anupam Perry
--- NOTE | 2017-12-28 17:37 | EKG ---
Test Date: 2017-12-26 Test Time: 20:28:56 Project Geologist: TL MEASUREMENT RESULTS: Intervals: Rate: 87 NV: 196 QRSD: 80 QT: 362 QTc: 435 [place]: P: 37 NV: 196 QRS: -1 T: 51 INTERPRETIVE STATEMENTS: Normal sinus rhythm Inferior infarct, age undetermined Abnormal ECG Compared to ECG 10/23/2017 23:53:42 Myocardial infarct finding now present Electronically Signed On 12-28-17 17:33:59 CDT by Anupam Perry
== END 2017-12-27 01:34 | disposition home or self-care (01) ==
LOC: ER 19:22
DX: K21.9 Gastro-esophageal reflux disease without esophagitis (principal); F17.210 Nicotine dependence, cigarettes, uncomplicated; I10 Essential (primary) hypertension; E78.00 Pure hypercholesterolemia, unspecified; Z88.0 Allergy status to penicillin; Z88.5 Allergy status to narcotic agent; Z88.8 Allergy status to other drugs, medicaments and biological substances; Z91.040 Latex allergy status
CPT/HCPCS: 36415 ×2; 71045; 71260; 80048; 80076; 83690; 83735; 83880; 84484 ×2; 85025; 85610; 85652; 93005 ×2; 96365; 96375; 99284; C9113; J3475; Q9967

== ENCOUNTER 2018-03-15 17:55 | Emergency (ER) | payer OTHER ==
--- OUTSIDE RECORDS SUMMARY | 2018-03-15 17:58 | XMS REPORT | Continuity of Care Document ---
[...] Neuro Bitartrate 5 MG Refill(s) Oral Tablet [[place] 5/325] Omeprazole PO, Daily, Active Mischer 0 [...] Date Comments Source BMI Calculated 35.39 03/12/2017 [facility] Weight 89.176 03/12/2017 [facility] Height 158.75 cm 03/12/2017 [facility] Temperature Oral (F) 97.8 F 03/12/2017 [facility] Heart Rate 76 03/12/2017 [facility] Systolic (mm Hg) 164 03/12/2017 [facility] Diastolic (mm Hg) 83 03/12/2017 [facility] Encounters Location Location Encounter Encounter Reason Attending ADM DC Status Source Details Type Number For Provider Date Date Visit [facility] Phone [id number] 03/11 03/13 [facility] Message [facility] [id number] JULES GALLEGOS 03/12 [facility] [id number] Jules Gallegos 03/12 03/13 [facility] /2017 [facility] Procedures Procedure Code Date Perfomer Comments Source Bladder operation [id number] [facility] Hysterectomy [id number] [facility] Operation [id number] [facility]
[2018-03-15] MEDS ORDERED: HYDROCODONE/APAP 5/325 MG TAB ONE (19:11)
--- NOTE | 2018-03-15 19:24 | RAD REPORT ---
EXAM DESCRIPTION: RAD - Elbow Left 3 View - 03/15/2018 6:47 pm CLINICAL HISTORY: PAIN COMPARISON: No comparisons FINDINGS: No bone or joint abnormality of the left elbow is identified.
--- NOTE | 2018-03-15 20:01 | RAD REPORT ---
EXAM DESCRIPTION: US - Extremity Venous Uni Ltd - 03/15/2018 7:37 pm CLINICAL HISTORY: Pain;Swelling Left arm pain and swelling. COMPARISON: EXT VENOUS W COMPRESSION MURPHY dated 06/15/2010 FINDINGS: Left upper extremity venous system was interrogated with Doppler technique. Normal flow, c ompressibility and augmentation was noted. There is no DVT present. IMPRESSION: No evidence of left upper extremity deep venous thrombosis.
--- NOTE | 2018-03-15 20:14 | ER ---
Nurse's Notes [facility] Name: Blanka Parker Age: 72 yrs Sex: Female : 1945 Arrival Date: 03/15/2018 Time: 17:59 Bed 13 Private MD: Diagnosis: Pain in left elbow Presentation: 03/15 17:59 Presenting complaint: Patient states: my L elbow is hurting for a week now and today is hj worse, its swollen and its warm; denies trauma to the area, pain in the morning is worse; denies taking pain meds RN PROVIDER RELATIONS:. Transition of care: patient was not received from another setting of care. Onset of symptoms was March 15, 2018. Risk Assessment: Do you want to hurt yourself or someone else? Patient reports no desire to harm self or others. Initial Sepsis Screen: Does the patient meet any 2 criteria? No. Patient's initial sepsis screen is negative. Does the patient have a suspected source of infection? No. Patient's initial sepsis screen is negative. Care prior to arrival: None. 17:59 Method Of Arrival: Ambulatory 17:59 Acuity: PETEY 4 hj Triage Assessment: 18:04 General: Appears in no apparent distress. uncomfortable, Behavior is calm, cooperative, hj appropriate for age. Pain: Complains of pain in left arm Pain currently is 7 out of 10 on a pain scale. Historical: - Allergies: 18:03 Codeine; hj 18:03 COLLAGENASE; hj 18:03 Demerol; hj 18:03 Latex, Natural Rubber; hj 18:03 Lidocaine; hj 18:03 PENICILLINS; hj 18:03 VENLAFAXINE; hj 18:03 Zanaflex; hj - Home Meds: 18:03 carvedilol Oral [Active]; amlodipine-olmesartan oral oral [Active]; Furosemide Oral as hj needed [Active]; Prilosec Oral [Active]; - PMHx: 18:03 degenerative joint disease; Diverticulitis; GERD; High Cholesterol; Hypertension; hj - PSHx: 18:03 Mesh bladder sling; Neck surgery; Bilat hand surgery; Cholecystectomy; Foot surgery; hj Ankle surgery; - Immunization history:: Adult Immunizations not up to date. - Social history:: Smoking status: Patient/guardian denies using tobacco, Patient/guardian denies using alcohol. - Ebola Screening: : Patient negative for fever greater than or equal to 101.5 degrees Fahrenheit, and additional compatible Ebola Virus Disease symptoms Patient denies exposure to infectious person Patient denies travel to an Ebola-affected area in the 21 days before illness onset. Screenin:04 Abuse screen: Denies threats or abuse. Denies injuries from another. Nutritional hj screening: No deficits noted. Tuberculosis screening: No symptoms or risk factors identified. Fall Risk None identified. Assessment: 18:00 General: Appears in no apparent distress. comfortable, well groomed, well developed, tl3 well nourished, Behavior is calm, cooperative, appropriate for age. Pain: Complains of pain in left arm. Neuro: Level of Consciousness is awake, alert, obeys commands, Oriented to person, place, time, situation, Appropriate for age. Cardiovascular: Patient's skin is warm and dry. Respiratory: Airway is patent Respiratory effort is even, unlabored, Respiratory pattern is regular, symmetrical. GI: No signs and/or symptoms were reported involving the gastrointestinal system. : No signs and/or symptoms were reported regarding the genitourinary system. EENT: No signs and/or symptoms were reported regarding the EENT system. Derm: No signs and/or symptoms reported regarding the dermatologic system. Musculoskeletal: Range of motion: intact in all extremities, Reports pain in left arm since 4 days. 19:15 Reassessment: Patient appears in no apparent distress at this time. Patient and/or cc3 family updated on plan of care and expected duration. Pain level reassessed. Patient is alert, oriented x 3, equal unlabored respirations, skin warm/dry/pink. Received this female patient from morning shift SCOTTIE Infante as a case of left arm pain. No IV cannula in situ. 20:30 Reassessment: Patient appears in no apparent distress at this time. Patient and/or cc3 family updated on plan of care and expected duration. Pain level reassessed. Patient is alert, oriented x 3, equal unlabored respirations, skin warm/dry/pink. SUELLEN Goldberg discharged the patient home, no prescription given. Patient left ER vitally stable and ambulatory with her . Vital Signs: 18:04 BP 105 / 54; Pulse 72; Resp 18; Temp 98.8(TE); Pulse Ox 96% on R/A; Weight 83.91 kg; hj Height 5 ft. 2 in. (157.48 cm); Pain 7/10; 18:45 BP 98 / 45; Pulse 96; Resp 18; Pulse Ox 96% on R/A; tl3 19:06 BP 114 / 59; Pulse 82; Resp 18 S; Pulse Ox 97% on R/A; cc3 20:15 BP 105 / 65; Pulse 82; Resp 17 S; Pulse Ox 97% on R/A; cc3 18:04 Body Mass Index 33.83 (83.91 kg, 157.48 cm) ED Course: 17:59 Patient arrived in ED. hj 18:01 Triage completed. hj 18:04 Arm band placed on right wrist. hj 18:04 Patient has correct armband on for positive identification. Bed in low position. Call light in reach. Side rails up X 1. 18:15 Yusuf An NP is PHCP. pm1 18:16 Stevan Saucedo MD is Attending Physician. pm1 18:45 No provider procedures requiring assistance completed. Patient did not have IV access tl3 during this emergency room visit. 18:46 X-ray completed. Portable x-ray completed in exam room. Patient tolerated procedure sg4 well. 18:47 Elbow Left 3 View XRAY In Process Unspecified. EDMS 18:47 Arelis Bennett, SCOTTIE is Primary Nurse. tl3 19:37 Ultrasound completed. Patient tolerated well. sg3 19:38 Extremity Venous Uni Ltd US In Process Unspecified. EDMS Administered Medications: 18:51 Drug: [place] 5 mg-325 mg 1 tabs Route: PO; tl3 19:49 Follow up: Response: No adverse reaction; Pain is decreased cc3 Outcome: 20:13 Discharge ordered by . pm1 20:30 Discharged to home ambulatory, with family. cc3 20:30 Condition: stable 20:30 Discharge instructions given to patient, family, Instructed on discharge instructions, follow up and referral plans. Demonstrated understanding of instructions, follow-up care. 20:33 Patient left the ED. cc3 Signatures: Dispatcher [employer] EDMS Ramiro Eugene RN RN Yusuf An NP STAFF RN pm1 Brissa Bear sg3 Arelis Bennett RN RN tl3 Bella Goins cc3 Ambreen Ortega sg4 Corrections: (The following items were deleted from the chart) 18:06 18:04 Pulse 72bpm; Resp 18bpm; Pulse Ox 96% RA; Temp 98.8F Temporal; 83.91 kg; Height 5 hj ft. 2 in.; BMI: 33.8; Pain 7/10; hj
--- NOTE | 2018-03-15 20:14 | EDPHYS ---
Physician Documentation [facility] Name: Blanka Parker Age: 72 yrs Sex: Female : 1945 Arrival Date: 03/15/2018 Time: 17:59 Bed 13 Private MD: ED Physician Stevan Saucedo HPI: 03/15 19:00 This 72 yrs old Female presents to ER via Ambulatory with complaints of Left pm1 Arm Pain. 19:00 The patient or guardian complains of pain, swelling. The complaints affect the medial pm1 aspect of left antecubital area. Context: The problem was sustained at home, resulted from unknown cause. Onset: The symptoms/episode began/occurred 1 week(s) ago. Treatment prior to arrival includes: no previous treatment. Modifying factors: The symptoms are alleviated by nothing. the symptoms are aggravated by nothing. Associated signs and symptoms: Pertinent negatives: decreased range of motion, deformity, fever, numbness, tingling. Severity of symptoms: in the emergency department the symptoms are unchanged. The patient has not experienced similar symptoms in the past. The patient has not recently seen a physician. Worse in the AM and better throughout the day. Historical: - Allergies: 18:03 Codeine; hj 18:03 COLLAGENASE; hj 18:03 Demerol; hj 18:03 Latex, Natural Rubber; hj 18:03 Lidocaine; hj 18:03 PENICILLINS; hj 18:03 VENLAFAXINE; hj 18:03 Zanaflex; hj - Home Meds: 18:03 carvedilol Oral [Active]; amlodipine-olmesartan oral oral [Active]; Furosemide Oral as hj needed [Active]; Prilosec Oral [Active]; - PMHx: 18:03 degenerative joint disease; Diverticulitis; GERD; High Cholesterol; Hypertension; hj - PSHx: 18:03 Mesh bladder sling; Neck surgery; Bilat hand surgery; Cholecystectomy; Foot surgery; hj Ankle surgery; - Immunization history:: Adult Immunizations not up to date. - Social history:: Smoking status: Patient/guardian denies using tobacco, Patient/guardian denies using alcohol. - Ebola Screening: : Patient negative for fever greater than or equal to 101.5 degrees Fahrenheit, and additional compatible Ebola Virus Disease symptoms Patient denies exposure to infectious person Patient denies travel to an Ebola-affected area in the 21 days before illness onset. ROS: 19:00 Constitutional: Negative for fever, chills, and weight loss, Eyes: Negative for injury, pm1 pain, redness, and discharge, ENT: Negative for injury, pain, and discharge, Neck: Negative for injury, pain, and swelling, Cardiovascular: Negative for chest pain, palpitations, and edema, Respiratory: Negative for shortness of breath, cough, wheezing, and pleuritic chest pain, Abdomen/GI: Negative for abdominal pain, nausea, vomiting, diarrhea, and constipation, Back: Negative for injury and pain, : Negative for injury, bleeding, discharge, and swelling. 19:00 Skin: Negative for injury, rash, and discoloration, Neuro: Negative for headache, weakness, numbness, tingling, and seizure. 19:00 MS/extremity: Positive for pain, swelling, of the medial aspect of left antecubital area. Exam: 19:00 Constitutional: This is a well developed, well nourished patient who is awake, alert, pm1 and in no acute distress. Head/Face: Normocephalic, atraumatic. Eyes: Pupils equal round and reactive to light, extra-ocular motions intact. Lids and lashes normal. Conjunctiva and sclera are non-icteric and not injected. Cornea within normal limits. Periorbital areas with no swelling, redness, or edema. ENT: Nares patent. No nasal discharge, no septal abnormalities noted. Tympanic membranes are normal and external auditory canals are clear. Oropharynx with no redness, swelling, or masses, exudates, or evidence of obstruction, uvula midline. Mucous membranes moist. Neck: Trachea midline, no thyromegaly or masses palpated, and no cervical lymphadenopathy. Supple, full range of motion without nuchal rigidity, or vertebral point tenderness. No Meningismus. Chest/axilla: Normal chest wall appearance and motion. Nontender with no deformity. No lesions are appreciated. Cardiovascular: Regular rate and rhythm with a normal S1 and S2. No gallops, murmurs, or rubs. No pulse deficits. Respiratory: Lungs have equal breath sounds bilaterally, clear to auscultation and percussion. No rales, rhonchi or wheezes noted. No increased work of breathing, no retractions or nasal flaring. Abdomen/GI: Soft, non-tender, with normal bowel sounds. No distension or tympany. No guarding or rebound. No evidence of tenderness throughout. Back: No spinal tenderness. No costovertebral tenderness. Full range of motion. Skin: Warm, dry with normal turgor. Normal color with no rashes, no lesions, and no evidence of cellulitis. 19:00 Musculoskeletal/extremity: Extremities: grossly normal except: noted in the medial aspect of left antecubital area: pain, swelling, a "ball", ROM: intact in all extremities, Circulation is intact in all extremities. Pulses: are normal with no appreciated deficits, Sensation intact. 19:00 Neuro: Orientation: is normal, Motor: is normal, moves all fours, strength is normal, strength is 5/5 in all extremities. Vital Signs: 18:04 BP 105 / 54; Pulse 72; Resp 18; Temp 98.8(TE); Pulse Ox 96% on R/A; Weight 83.91 kg; hj Height 5 ft. 2 in. (157.48 cm); Pain 7/10; 18:45 BP 98 / 45; Pulse 96; Resp 18; Pulse Ox 96% on R/A; tl3 19:06 BP 114 / 59; Pulse 82; Resp 18 S; Pulse Ox 97% on R/A; cc3 20:15 BP 105 / 65; Pulse 82; Resp 17 S; Pulse Ox 97% on R/A; cc3 18:04 Body Mass Index 33.83 (83.91 kg, 157.48 cm) MDM: 18:17 Patient medically screened. pm1 20:12 Data reviewed: vital signs. Data interpreted: Pulse oximetry: on room air is 97 %. pm1 Interpretation: normal. Counseling: I had a detailed discussion with the patient and/or guardian regarding: the historical points, exam findings, and any diagnostic results supporting the discharge/admit diagnosis, radiology results, the need for outpatient follow up, to return to the emergency department if symptoms worsen or persist or if there are any questions or concerns that arise at home. 20:12 ED course: swelling decreased on reexamination. pm1 03/15 18:21 Order name: Elbow Left 3 View XRAY; Complete Time: 19:33 pm1 03/15 18:21 Order name: Extremity Venous Uni Ltd US; Complete Time: 20:05 pm1 03/15 20:14 Order name: Sling; Complete Time: 20:33 pm1 Administered Medications: 18:51 Drug: [place] 5 mg-325 mg 1 tabs Route: PO; tl3 19:49 Follow up: Response: No adverse reaction; Pain is decreased cc3 Disposition: 03/16 07:26 Co-signature as Attending Physician, Stevan Saucedo MD I agree with the assessment and sawyer plan of care. Disposition: 03/15/18 20:13 Discharged to Home. Impression: Pain in left elbow. - Condition is Stable. - Discharge Instructions: Joint Pain, Arthritis, Musculoskeletal Pain, How to Use a Sling. - Medication Reconciliation Form, Thank You Letter, Prescription Opioid Use form. - Follow up: Emergency Department; When: As needed; Reason: Worsening of condition. Follow up: Private Physician; When: 2 - 3 days; Reason: Recheck today's complaints, Continuance of care, Re-evaluation by your physician. - Problem is new. - Symptoms have improved. Signatures: Dispatcher [employer] EDAZ Stevan Saucedo MD MD cha Joaquin, Henry RN RN hj Yusuf An, SUELLEN POTASH FLAKER pm1 Arelis Bennett RN RN tl3 eBlla Goins cc3 Corrections: (The following items were deleted from the chart) 03/15 20:33 20:13 03/15/2018 20:13 Discharged to Home. Impression: Pain in left elbow. Condition is cc3 Stable. Forms are Medication Reconciliation Form, Thank You Letter, Antibiotic Education, Prescription Opioid Use. Follow up: Emergency Department; When: As needed; Reason: Worsening of condition. Follow up: Private Physician; When: 2 - 3 days; Reason: Recheck today's complaints, Continuance of care, Re-evaluation by your physician. Problem is new. Symptoms have improved. pm1
[2018-03-15 20:42] VITALS: TEMP 98.8
[2018-03-15 20:45] VITALS: BP 114/59; O2SAT 97
== END 2018-03-15 20:33 | disposition home or self-care (01) ==
LOC: ER 17:55
DX: M25.522 Pain in left elbow (principal); E78.00 Pure hypercholesterolemia, unspecified; I10 Essential (primary) hypertension; K21.9 Gastro-esophageal reflux disease without esophagitis; M19.90 Unspecified osteoarthritis, unspecified site; Z79.899 Other long term (current) drug therapy
CPT/HCPCS: 93971; 99283

== ENCOUNTER 2018-09-30 17:00 | Emergency (ER) | payer OTHER ==
--- OUTSIDE RECORDS SUMMARY | 2018-09-30 17:03 | XMS REPORT | Continuity of Care Document ---
:1945 Author Organization [facility] Care Team Providers Name Role Phone [facility] Unavailable Unavailable Problems Problem Status Onset Classification Date Comments [...] Neuro Bitartrate 5 MG Refill(s) Oral Tablet [[place] 5/325] Omeprazole PO, Daily, Active [facility] 0 018 Neuro Refill(s) Allergies, Adverse Reactions, Alerts Substance Category Reaction Severity Reaction Status Date Comments Source type Reported codeine Assertion Drug Active [facility] Zanaflex Assertion Drug Active [facility] Demerol HCl Assertion Drug Active [facility] Latex Assertion Drug Active [facility] allergy Neuro Immunizations No Data Provided for This Section Results No Data Provided for This Section Pathology Reports No Data Provided for This Section Diagnostic Reports No Data Provided for This Section Consultation Notes No Data Provided for This Section Discharge Summaries No Data Provided for This Section History and Physicals No Data Provided for This Section Vital Signs Vital Sign Value Date Comments Source BMI Calculated 35.39 03/12/2017 [facility] Weight 89.176 03/12/2017 [facility] Height 158.75 cm 03/12/2017 [facility] Temperature Oral (F) 97.8 F 03/12/2017 [facility] Heart Rate 76 03/12/2017 [facility] Systolic (mm Hg) 164 03/12/2017 [facility] Diastolic (mm Hg) 83 03/12/2017 [facility] Encounters Location Location Encounter Encounter Reason Attending ADM DC Status Source Details Type Number For Provider Date Date Visit [facility] Phone [id number] 03/11 03/13 [facility] [id number] JULES GALLEGOS 03/12 [facility] [id number] Jules Gallegos 03/12 03/13 [facility] Procedures Procedure Code Date Perfomer Comments Source Bladder operation [id number] [facility] Hysterectomy [id number] [facility] Operation [id number] [facility] Assessment and Plan No Data Provided for This Section Plan of Care No Data Provided for This Section Social History Social History Date Source Social History TypeResponse 03/12/2017 [facility] Smoking Status Current every day smoker; Type: Cigarettes; Lives with someone who smokes; Cigarette Smoking Last 365 Days Yes; Reg Smoking Cessation Counseling No Family History No Data Provided for This Section Advance Directives No Data Provided for This Section Functional Status No Data Provided for This Section
[2018-09-30 18:31] LABS: Absolute Lymphocytes (CBC) 1.4 K/uL (0.7-4.9); Basophils % 0.3 % (0-1.3); Hematocrit 36.5 % (36.0-45.0); Lymphocytes % 14.9 % (15.3-44.8); MPV 8.8 fL (7.6-11.3); RBC Red Blood Cell Count 4.22 M/uL (3.86-4.86)
[2018-09-30 18:43] LABS: Potassium 4.1 mmol/L (3.5-5.1)
--- NOTE | 2018-09-30 19:44 | RAD REPORT ---
EXAM DESCRIPTION: CT - Soft Tissue Neck W/Contr CLINICAL HISTORY: recent cervical surgery. Dyspagia COMPARISON: <Comparisons> TECHNIQUE All CT scans are performed using dose optimization technique as appropriate and may includ e automated exposure control or mA/KV adjustment according to patient size. FINDINGS: Nasopharyngeal tissues are normal in appearance. Fossa Rosenmller are normal. No intrinsic or extrinsic neck mass is identified. Salivary glands are symmetric. No abscess or drainable fluid collections. The visualized paranasal sinuses and mastoids are clear. ACDF changes are present at C5-6. IMPRESSION: No acute neck abnormality is identified.
--- NOTE | 2018-09-30 19:57 | EDPHYS ---
Physician Documentation [facility] Name: Blanka Parker Age: 73 yrs Sex: Female : 1945 Arrival Date: 09/30/2018 Time: 17:05 Bed 25 Private MD: Maxim Trujillo ED Physician Gumaro Patel HPI: 09/30 18:21 This 73 yrs old Female presents to ER via Ambulatory with complaints of Neck jr8 Problem. 18:21 The patient or guardian complains of pain, dysphagia, "bumps" to roof of mouth. The jr8 symptoms are located at the cervical spine right side. Onset: The symptoms/episode began/occurred suddenly, today, 4 episodes of sudden pain, lasting only a few seconds, resolved at this time. Associated signs and symptoms: Pertinent positives: headache, Pertinent negatives: chills, fever, nausea, numbness, tingling, vomiting. The pain radiates to the head. Modifying factors: The symptoms are alleviated by nothing. the symptoms are aggravated by nothing. Severity of symptoms: At their worst the symptoms were mild, in the emergency department the symptoms have resolved. The patient has not experienced similar symptoms in the past. The patient has not recently seen a physician. Patient reports history of anterior cervical fusion one month ago. Reports dysphagia since the surgery, "lumps" to roof of mouth noted several days ago, and 4 episodes of right sided neck pain that radiated up to head intermittently today. Reports 4 episodes that lasted seconds and resolved. Reports no neck pain at this time, only minimal headache. Historical: - Allergies: 17:08 Codeine; aj 17:08 COLLAGENASE; aj 17:08 Demerol; aj 17:08 Latex, Natural Rubber; aj 17:08 Lidocaine; aj 17:08 PENICILLINS; aj 17:08 VENLAFAXINE; aj 17:08 Zanaflex; aj 17:08 Sulfa (Sulfonamide Antibiotics); aj - Home Meds: 17:51 amlodipine-olmesartan Oral [Active]; carvedilol Oral [Active]; Furosemide Oral as mg2 needed [Active]; Prilosec Oral [Active]; - PMHx: 17:51 degenerative joint disease; Diverticulitis; GERD; High Cholesterol; Hypertension; mg2 - Immunization history:: Adult Immunizations up to date. - Social history:: Smoking status: Patient/guardian denies using tobacco. - Ebola Screening: : Patient negative for fever greater than or equal to 101.5 degrees Fahrenheit, and additional compatible Ebola Virus Disease symptoms Patient denies exposure to infectious person Patient denies travel to an Ebola-affected area in the 21 days before illness onset No symptoms or risks identified at this time. ROS: 18:21 Constitutional: Negative for fever, chills, and weight loss, Eyes: Negative for injury, jr8 pain, redness, and discharge, Cardiovascular: Negative for chest pain, palpitations, and edema, Respiratory: Negative for shortness of breath, cough, wheezing, and pleuritic chest pain, Abdomen/GI: Negative for abdominal pain, nausea, vomiting, diarrhea, and constipation, Back: Negative for injury and pain, MS/Extremity: Negative for injury and deformity, Skin: Negative for injury, rash, and discoloration. 18:21 ENT: Positive for difficulty swallowing, Negative for ear pain, sinus congestion, sinus pain, sore throat, dental pain. 18:21 Neck: Negative for mass, pain with movement, pain at rest, rash, stiffness, swollen nodes, tenderness, bony tenderness. 18:21 Neuro: Negative for dizziness, hearing loss, loss of consciousness, numbness, tingling, visual changes, weakness. Exam: 18:21 Constitutional: This is a well developed, well nourished patient who is awake, alert, jr8 and in no acute distress. Head/Face: Normocephalic, atraumatic. Eyes: Pupils equal round and reactive to light, extra-ocular motions intact. Lids and lashes normal. Conjunctiva and sclera are non-icteric and not injected. Cornea within normal limits. Periorbital areas with no swelling, redness, or edema. Cardiovascular: Regular rate and rhythm with a normal S1 and S2. No gallops, murmurs, or rubs. Normal PMI, no JVD. No pulse deficits. Respiratory: Lungs have equal breath sounds bilaterally, clear to auscultation and percussion. No rales, rhonchi or wheezes noted. No increased work of breathing, no retractions or nasal flaring. Abdomen/GI: Soft, non-tender, with normal bowel sounds. No distension or tympany. No guarding or rebound. No evidence of tenderness throughout. Skin: Warm, dry with normal turgor. Normal color with no rashes, no lesions, and no evidence of cellulitis. MS/ Extremity: Pulses equal, no cyanosis. Neurovascular intact. Full, normal range of motion. 18:21 ENT: External ear(s): are unremarkable, Ear canal(s): are normal, TM's: are normal, fluid levels, bilaterally, Mouth: Lips: normal, moist, Oral mucosa: noted to have ulceration(s), on the right aspect of posterior pharynx, Posterior pharynx: is normal, no erythema, no exudate, no swelling. 18:21 Neck: External neck: no acute changes, C-spine: no acute changes, ROM/movement: no acute changes, limited range of motion, is not appreciated, Meningeal signs: are not present, nuchal rigidity, is not appreciated. Vital Signs: 17:08 BP 151 / 76; Pulse 99; Resp 18; Temp 98.0; Pulse Ox 99% on R/A; Weight 86.18 kg; Height aj 5 ft. 2 in. (157.48 cm); 18:29 BP 143 / 68; Pulse 80; Resp 18; Pulse Ox 100% on R/A; mg2 20:38 BP 135 / 78; Pulse 80; Resp 18; Temp 98; Pulse Ox 100% on R/A; mg2 17:08 Body Mass Index 34.75 (86.18 kg, 157.48 cm) aj MDM: 17:51 Patient medically screened. jr8 19:49 Differential diagnosis: C-Spine Fracture Cervical Raiculopathy Cervical Spondylosis jr8 cervical strain, Neck Contusion Spondylosis subluxation, soft tissue abnormality. Data reviewed: vital signs, nurses notes, lab test result(s), radiologic studies, CT scan, and as a result, I will discharge patient. Data interpreted: Pulse oximetry: on room air is 97 %. Interpretation: normal. Counseling: I had a detailed discussion with the patient and/or guardian regarding: the historical points, exam findings, and any diagnostic results supporting the discharge/admit diagnosis, lab results, radiology results, the need for outpatient follow up, an ENT specialist, to return to the emergency department if symptoms worsen or persist or if there are any questions or concerns that arise at home. ED course: Lab and CT findings negative, no acute neurological deficits or emergent exam findings noted. No emergent cause for admission or transfer at this time. Discussed need for follow up with ENT for complaints of dysphagia and lesions to oral pharynx. Patient instructed to follow up with ENT and return to ED for any new, worsening, or unrelieved symptoms. Patient verbalized understanding. 09/30 18:17 Order name: CBC with Diff; Complete Time: 18:46 jr8 09/30 18:17 Order name: Basic Metabolic Panel; Complete Time: 18:46 jr8 09/30 18:16 Order name: IV; Complete Time: 18:27 jr8 09/30 18:17 Order name: CT Soft Tissue Neck W/contr; Complete Time: 19:46 jr8 Administered Medications: No medications were administered Disposition: 09/30/18 19:56 Discharged to Home. Impression: Other and unspecified lesions of oral mucosa, Dysphagia, unspecified. - Condition is Stable. - Discharge Instructions: Dysphagia. - Medication Reconciliation Form, Thank You Letter, Antibiotic Education, Prescription Opioid Use form. - Follow up: Leslie Hathaway MD; When: 2 - 3 days; Reason: Recheck today's complaints, Continuance of care, Re-evaluation by your physician. - Problem is an ongoing problem. - Symptoms have improved. Addendum: 10/02/2018 19:12 Co-signature as Attending Physician, Gumaro Patel MD. r n Signatures: Dispatcher [employer] EDIvis Polk, RN Gumaro Deal MD MD rn Roszak, Josh, PA PA jr8 Lucian Bain RN RN mg2 Corrections: (The following items were deleted from the chart) 09/30 20:39 19:56 09/30/2018 19:56 Discharged to Home. Impression: Other and unspecified lesions of mg2 oral mucosa; Dysphagia, unspecified. Condition is Stable. Forms are Medication Reconciliation Form, Thank You Letter, Antibiotic Education, Prescription Opioid Use. Follow up: Leslie Hathaway; When: 2 - 3 days; Reason: Recheck today's complaints, Continuance of care, Re-evaluation by your physician. Problem is an ongoing problem. Symptoms have improved. jr8
--- NOTE | 2018-09-30 19:57 | ER ---
Nurse's Notes [facility] Name: Blanka Parker Age: 73 yrs Sex: Female : 1945 Arrival Date: 09/30/2018 Time: 17:05 Bed 25 Private MD: Maxim Trujillo Diagnosis: Other and unspecified lesions of oral mucosa;Dysphagia, unspecified Presentation: 09/30 17:07 Presenting complaint: Patient states: Pain to right upper jaw with redness and aj inflammation and pain that shoots to right neck. Transition of care: patient was not received from another setting of care. Onset of symptoms was September 30, 2018. Risk Assessment: Do you want to hurt yourself or someone else? Patient reports no desire to harm self or others. Initial Sepsis Screen: Does the patient meet any 2 criteria? No. Patient's initial sepsis screen is negative. Does the patient have a suspected source of infection? No. Patient's initial sepsis screen is negative. Care prior to arrival: None. 17:07 Method Of Arrival: Ambulatory aj 17:07 Acuity: PETEY 3 aj Triage Assessment: 17:08 General: Appears in no apparent distress. comfortable, Behavior is calm, cooperative, aj appropriate for age. Pain: Complains of pain in upper right third molar. EENT: Reports pain in upper right third molar. Neuro: Level of Consciousness is awake, alert, obeys commands, Oriented to person, place, time, situation, Appropriate for age. Respiratory: Airway is patent Respiratory effort is even, unlabored, Respiratory pattern is regular, symmetrical. Derm: Skin is intact, is healthy with good turgor, Skin is pink, warm \T\ dry. normal. Historical: - Allergies: 17:08 Codeine; aj 17:08 COLLAGENASE; aj 17:08 Demerol; aj 17:08 Latex, Natural Rubber; aj 17:08 Lidocaine; aj 17:08 PENICILLINS; aj 17:08 VENLAFAXINE; aj 17:08 Zanaflex; aj 17:08 Sulfa (Sulfonamide Antibiotics); aj - Home Meds: 17:51 amlodipine-olmesartan Oral [Active]; carvedilol Oral [Active]; Furosemide Oral as mg2 needed [Active]; Prilosec Oral [Active]; - PMHx: 17:51 degenerative joint disease; Diverticulitis; GERD; High Cholesterol; Hypertension; mg2 - Immunization history:: Adult Immunizations up to date. - Social history:: Smoking status: Patient/guardian denies using tobacco. - Ebola Screening: : Patient negative for fever greater than or equal to 101.5 degrees Fahrenheit, and additional compatible Ebola Virus Disease symptoms Patient denies exposure to infectious person Patient denies travel to an Ebola-affected area in the 21 days before illness onset No symptoms or risks identified at this time. Screenin:47 Abuse screen: Denies threats or abuse. Denies injuries from another. Nutritional mg2 screening: No deficits noted. Tuberculosis screening: No symptoms or risk factors identified. Fall Risk None identified. Assessment: 17:44 General: Appears in no apparent distress. comfortable, Behavior is calm, cooperative. mg2 Pain: Complains of pain in upper right third molar Pain radiates to neck Pain currently is 5 out of 10 on a pain scale. Quality of pain is described as aching, Pain began gradually. Neuro: Level of Consciousness is awake, alert, obeys commands, Oriented to person, place, time, situation. Cardiovascular: Capillary refill < 3 seconds Patient's skin is warm and dry. Respiratory: Airway is patent Respiratory effort is even, unlabored, Respiratory pattern is regular, symmetrical. GI: No deficits noted. : No signs and/or symptoms were reported regarding the genitourinary system. EENT: Poor dentition noted. Derm: Skin is intact, is healthy with good turgor, Skin is pink, warm \T\ dry. normal. Musculoskeletal: Circulation, motion, and sensation intact. Capillary refill < 3 seconds. 19:29 Reassessment: patient is back from ct scan. mg2 Vital Signs: 17:08 BP 151 / 76; Pulse 99; Resp 18; Temp 98.0; Pulse Ox 99% on R/A; Weight 86.18 kg; Height aj 5 ft. 2 in. (157.48 cm); 18:29 BP 143 / 68; Pulse 80; Resp 18; Pulse Ox 100% on R/A; mg2 20:38 BP 135 / 78; Pulse 80; Resp 18; Temp 98; Pulse Ox 100% on R/A; mg2 17:08 Body Mass Index 34.75 (86.18 kg, 157.48 cm) ED Course: 17:05 Patient arrived in ED. mr 17:06 Maxim Trujillo MD is Private Physician. mr 17:07 Triage completed. aj 17:08 Arm band placed on right wrist. Patient placed in an exam room. aj 17:26 Lucian Bain, RN is Primary Nurse. mg2 17:43 Dariusz Wu PA is PHCP. jr8 17:43 Gumaro Patel MD is Attending Physician. jr8 17:48 No provider procedures requiring assistance completed. mg2 17:49 Patient has correct armband on for positive identification. mg2 18:24 Radiology exam delayed due to lab results not completed at this time. (BUN/Creatinine). vm2 18:29 Inserted saline lock: 20 gauge in right antecubital area, using aseptic technique. mg2 Blood collected. 19:26 CT Soft Tissue Neck W/contr In Process Unspecified. EDMS 19:55 Leslie Hathaway MD is Referral Physician. jr8 20:39 IV discontinued, intact, bleeding controlled, No redness/swelling at site. Pressure mg2 dressing applied. Administered Medications: No medications were administered Outcome: 19:56 Discharge ordered by MD. jr8 20:39 Discharged to home ambulatory, with family. mg2 20:39 Condition: good 20:39 Discharge instructions given to patient, family, Instructed on discharge instructions, follow up and referral plans. Demonstrated understanding of instructions, follow-up care. 20:39 Patient left the ED. mg2 Signatures: Dispatcher [employer] EDMS Ivis Trinidad, RN SCOTTIE malik Alida Medel mr Dariusz Wu PA PA 8 Tika Lang [facility] Lucian Bain, RN RN mg2 Corrections: (The following items were deleted from the chart) 18:30 17:48 Patient did not have IV access during this emergency room visit. mg2 mg2 19:59 17:07 Acuity: PETEY 4 aj aj
[2018-09-30 20:52] VITALS: O2SAT 100
[2018-09-30 20:53] VITALS: BP 135/78; TEMP 98
== END 2018-09-30 20:39 | disposition home or self-care (01) ==
LOC: ER 17:00
DX: K13.70 Unspecified lesions of oral mucosa (principal); R13.10 Dysphagia, unspecified; K21.9 Gastro-esophageal reflux disease without esophagitis; E78.00 Pure hypercholesterolemia, unspecified; I10 Essential (primary) hypertension; Z88.5 Allergy status to narcotic agent; Z88.0 Allergy status to penicillin; Z88.2 Allergy status to sulfonamides; Z91.040 Latex allergy status
CPT/HCPCS: 36415; 70491; 80048; 85025; 99283; Q9967

== ENCOUNTER 2018-11-03 10:02 | Day surgery (SDC) | payer OTHER ==
[~2018-11-03 10:02] MED LIST: FENTANYL CITR 100 MCG/2 ML ONE; LIDOCAINE 2% MPF 5 ML VIAL ONE; MIDAZOLAM HCL 2 MG/2 ML INJ ONE; ONDANSETRON 4 MG/2 ML VIAL ONE; PROPOFOL 200 MG/20 ML VIAL IV ONE
--- OUTSIDE RECORDS SUMMARY | 2018-11-03 10:08 | XMS REPORT | Continuity of Care Document ---
:1945 Author Organization [facility] Care Team Providers Name Role Phone [facility] Unavailable Unavailable Problems Problem Status Onset Classification [...] Neuro Bitartrate 5 MG Refill(s) Oral Tablet [Mills 5/325] Omeprazole PO, Daily, Active Mischer 0 018 Neuro Refill(s) Allergies, Adverse Reactions, Alerts Substance Category Reaction Severity Reaction Status Date Comments Source type Reported codeine Assertion Drug Active [facility] allergy Neuro Zanaflex Assertion Drug Active [facility] allergy Neuro Demerol HCl Assertion Drug Active [facility] allergy Neuro Latex Assertion Drug Active [facility] allergy Neuro Immunizations No Data Provided for [...] Date Comments Source BMI Calculated 35.39 03/12/2017 [facility] Neuro Weight 89.176 03/12/2017 [facility] Neuro Height 158.75 cm 03/12/2017 [facility] Neuro Temperature Oral (F) 97.8 F 03/12/2017 [facility] Neuro Heart Rate 76 03/12/2017 [facility] Neuro Systolic (mm Hg) 164 03/12/2017 [facility] Neuro Diastolic (mm Hg) 83 03/12/2017 [facility] Neuro Encounters Location Location Encounter Encounter Reason Attending ADM DC Status Source Details Type Number For Provider Date Date Visit [facility] Phone [id number] 03/11 03/13 [facility] [id number] JULES GALLEGOS 03/12 [facility] Outpatient [id number] Jules Gallegos 03/12 03/13 [facility] Neuro [facility] Procedures Procedure Code Date Perfomer Comments Source Bladder operation [id number] [facility] Neuro Hysterectomy [id number] [facility] Neuro Operation [id number] [facility] Neuro Assessment and Plan No Data Provided for This Section Plan of Care No Data Provided for This Section Social History Social History Date Source Social History TypeResponse 03/12/2017 [facility] Neuro Smoking Status Current every day smoker; Type: Cigarettes; Lives with someone who smokes; Cigarette Smoking Last 365 Days Yes; Reg Smoking Cessation Counseling No Family History No Data Provided for This Section Advance Directives No Data Provided for This Section Functional Status No Data Provided for This Section
[2018-11-03] MEDS ORDERED: FENTANYL CITR 100 MCG/2 ML ONE ×2 (10:13→10:14)
[2018-11-03] MEDS ORDERED: PROPOFOL 200 MG/20 ML VIAL IV ONE ×2 (10:13→10:14)
[2018-11-03] MEDS ORDERED: LIDOCAINE 2% MPF 5 ML VIAL ONE ×2 (10:13→10:14)
[2018-11-03] MEDS ORDERED: MIDAZOLAM HCL 2 MG/2 ML INJ ONE ×2 (10:13→10:14)
[2018-11-03] MEDS ORDERED: ONDANSETRON 4 MG/2 ML VIAL ONE ×2 (10:13→10:14)
[2018-11-03] MEDS ORDERED: CEFOXITIN/SWI 1gm 1 GM/10 ML SYR ONE (10:23)
[2018-11-03] MEDS ORDERED: Ringers Lactate 1,000 ML IV ONE (10:23)
[2018-11-03 10:57] LABS: Absolute Lymphocytes (CBC) 2.1 K/uL (0.7-4.9); Basophils % 0.5 % (0-1.3); Hematocrit 34.5 % (36.0-45.0); Lymphocytes % 24.6 % (15.3-44.8); MPV 8.4 fL (7.6-11.3); RBC Red Blood Cell Count 4.03 M/uL (3.86-4.86)
[2018-11-03] MEDS ORDERED: NS 0.9% VIAL 10 ML ONE (11:00)
[2018-11-03] MEDS ORDERED: Phenylephrine HCl 10 MG/ML 1 ML VIAL ONE (11:00)
[2018-11-03] MEDS ORDERED: NS 0.9% VIAL 30 ML ONE (11:00)
[2018-11-03 11:10] LABS: Potassium 3.9 mmol/L (3.5-5.1)
--- NOTE | 2018-11-03 11:19 | EKG ---
Test Date: 2018-11-03 Test Time: 10:24:19 Print Controller: DARELL MEASUREMENT RESULTS: Intervals: Rate: 68 CT: 194 QRSD: 78 QT: 430 QTc: 457 [place]: P: 52 CT: 194 QRS: 23 T: 62 INTERPRETIVE STATEMENTS: Normal sinus rhythm Normal ECG Compared to ECG 10/14/2018 17:17:55 Atrial premature complex(es) no longer present Aberrant conduction of supraventricular beat(s) no longer present Myocardial infarct finding no longer present Electronically Signed On 11-03-18 11:18:33 CDT by Anupam Perry
[2018-11-03 11:49] VITALS: TEMP 98.4
[2018-11-03 11:57] VITALS: O2SAT 94
[2018-11-03 12:53] VITALS: BP 109/59
--- NOTE | 2018-11-04 00:32 | OP ---
Date of Procedure: 11/03/2018 Surgeon: Arnav Mcintyre MD Preoperative Diagnosis: Left perirectal abscess. Postoperative Diagnosis: Left perirectal abscess. Procedure: Incision and drainage and debridement of left perirectal abscess, exam under anesthesia, rigid proctoscopy. Estimated Blood Loss: Minimal. Specimen: Pus. Findings: As above. Anesthesia: General. Complications: None. Disposition: Patient tolerated the procedure in stable condition, taken to Recovery in good general condition. Procedure In Detail: The patient was brought to the OR and placed in supine position. General anest hesia was begun. Patient was placed in lithotomy position, prepped and draped in usual sterile fashi on. Exam under anesthesia revealed approximately a 4 x 4 cm area of erythema, warmth, edema with willard tral fluctuance. Fluctuance is approximately 2.5 cm in length and it was in the left lateral positio n through the anus. Then, rigid proctoscopy was performed. No internal opening identified and subse quently Marcaine 0.5% was infiltrated around the abscess and then sharp dissection proceeded through the skin and the subcutaneous tissue and pus under pressure evacuated. Loculation broken up. Necrot ic tissue debrided. Wound was irrigated. Bleeding was controlled with cautery. Cultures were done and the bleeding controlled with cautery and then wet-to-dry normal saline dressing change applied. Patient tolerated the procedure in stable condition, taken to Recovery in good general condition. Discharge Note: Patient will go to Day Surgery and home when stable. Disposition: Home. Condition: Stable. Discharge Instructions: Resume home medications and diet. Activity as tolerated. No heavy lifting. Sitz baths in a.m. Wet-to-dry normal saline dressing changes daily. Follow [facility] Call for appointment. Cipro 500 mg p.o. q.12. Ultracet 1 tablet p.o. q.4 p.r.n. pain. /MODL Voice ID: [id number] Report ID: [id number]
== END 2018-11-03 12:47 | disposition home or self-care (01) ==
LOC: OR 10:02
PROVIDERS: ATTEND Surgery
PROC: 0D9P0ZX Drainage of Rectum, Open Approach, Diagnostic (ICD-10-PCS; principal; 2018-11-03 10:00)
DX: K61.1 Rectal abscess (principal); I10 Essential (primary) hypertension; E04.9 Nontoxic goiter, unspecified; K21.9 Gastro-esophageal reflux disease without esophagitis; Z85.828 Personal history of other malignant neoplasm of skin; F17.210 Nicotine dependence, cigarettes, uncomplicated; Z88.0 Allergy status to penicillin; Z88.6 Allergy status to analgesic agent; Z88.8 Allergy status to other drugs, medicaments and biological substances; Z91.040 Latex allergy status; Z90.710 Acquired absence of both cervix and uterus
CPT/HCPCS: 93005; 87070; 85025; 80048; 36415; 87205 ×2; 87075; 46040; J2704; J2370; J2250; J3010; J2405

== ENCOUNTER 2019-06-29 11:46 | Observation (INO) | payer OTHER ==
[2019-06-29 17:10] VITALS: BMI 33.8
[2019-06-29 18:14] VITALS: O2SAT 96
[2019-06-30 13:08] VITALS: BP 107/52; TEMP 97.5
== END 2019-06-30 12:16 | disposition home or self-care (01) ==
LOC: ER 11:46 → ERHOLD 14:39 → 2ND 16:21
PROVIDERS: ADMIT Family Medicine; ATTEND Family Medicine
DX: K57.32 Diverticulitis of large intestine without perforation or abscess without bleeding (principal); K21.9 Gastro-esophageal reflux disease without esophagitis; I10 Essential (primary) hypertension; E78.5 Hyperlipidemia, unspecified; N20.0 Calculus of kidney
CPT/HCPCS: 36415; 74177; 80048; 80076; 81003; 81015; 83690; 83735; 83880; 85014; 85018; 85025; 87086; 87088; 96361; 96365; 96366; 96375; 99285; G0378; J0744; J1650; J2270; J2405; J3475; J7030; Q9967

== ENCOUNTER 2019-07-14 18:05 | Emergency (ER) | payer OTHER ==
--- OUTSIDE RECORDS SUMMARY | 2019-07-14 18:08 | XMS REPORT ---
:1945 Author Organization [facility] Address [address] [place] [address] Dr. Sheldon[address] [place] [address] Care Team Providers Name Role Phone Lincoln CM Unavailable Unavailable Problems This patient has no known problems. Allergies, Adverse Reactions, Alerts This patient has no known allergies or adverse reactions. Medications This patient has no known medications. Results Test Description Test Time Test Comments Text Results Atomic Results Result Comments CHEST 2018-12-08 [place] [address] 10:09:[address] [place] [address] Patie nt Name: YANA KURTZ MR #: [id number] : 1945 Age/Sex: 73/F Req #: [id number] Adm Physician: Order ed by: SILVIA MC MD Report #: [id number] Location: OR Room/Bed: Procedure: 100 1-0015 DX/CHEST 2 VIEWS Exam Date: 12/08/18 Exam Time: 0950 REPORT STATUS: Signed TECHNIQUE: Frontal and lateral views of the chest. INDICATION: PRE-OP [facility]O [id number]. COMPARISON: None . FINDINGS: LINES/TUBES: None. LUNGS: There is some streaky opacities in the left base which are likely due to atelectasis. No consolidation or pulmonary edema. PLEU RA: No pleural effusion or pneumothorax. HEART AND MEDIASTINUM: The cardiomediastina l silhouette is within normal limits. SOFT TISSUES AND BONES: Prior anterior cervical disc fu lurdes. Several surgical clips in the upper abdomen. Mild degenerative disc changes visualized spine . Calcification of the abdominal aorta. IMPRESSION: Mild left basilar subsegmental ate lectasis. Otherwise, no acute cardiopulmonary abnormalities. Signed by: Amos Campos JR, MD on 12/08/2018 10:13 AM Dictated By: AMOS CAMPOS MD [id number] COPY TO: SILVIA CM MD
--- OUTSIDE RECORDS SUMMARY | 2019-07-14 18:08 | XMS REPORT | Continuity of Care Document ---
:1945 Author Organization [employer] Care Team Providers Name Role Phone [employer] Unavailable Un available Problems Problem Status Onset Classification Date Comments Sourc e Date Reported Diverticular Active Problem 03/15/2017 Mische r disease (disorder) N euro Diverticulitis Active Problem 03/15/2017 Misc her (disorder) Neuro Morbid obesity Active Problem 03/15/2017 Misc her (disorder) Neuro Medications Medication Details Route Status Patient Ordering Order Source Instructions Provider Date Citalopram 40 MG 40 mg = 1 Active Misch er Oral Tablet tab, PO, 018 Neuro [Celexa] Daily, 0 Refill(s) spironolactone 25 25 mg = 1 Active Misc her mg oral tablet tab, PO, 018 Neuro BID, 0 Refill(s) atorvastatin 20 mg 20 mg = 1 Active Mis nolvia oral tablet tab, PO, 018 Neuro Daily, 0 Refill(s) cyclobenzaprine 10 10 mg = 1 Active Mis nolvia mg oral tablet tab, PO, 018 Neuro TID, 0 Refill(s) Klor-Con 10 10 mEq, Active Mischer PO, BID, 0 018 Neuro Refill(s) Furosemide 40 MG 40 mg = 1 Active Misch er Oral Tablet tab, PO, 018 Neuro Daily, 0 Refill(s) gabapentin 100 MG 300 mg = 3 Active Mis nolvia Oral Capsule cap, PO, 018 Neuro TID, 0 Refill(s) Acetaminophen 325 1 tab, PO, Active Mis nolvia MG / Hydrocodone Q6H, 0 018 Neuro Bitartrate 5 MG Refill(s) Oral Tablet [Aurora 5/325] Omeprazole PO, Daily, Active Mischer 0 018 Neuro Refill(s) Allergies, Adverse Reactions, Alerts Substance Category Reaction Severity Reaction Status Date Comments S ource type Reported codeine Assertion Drug Active M[facility] r allergy Neuro Zanaflex Assertion Drug Active Misch er allergy Neuro Demerol HCl Assertion Drug Active Mi chelsie allergy Neuro Latex Assertion Drug Active Mische r allergy Neuro Immunizations No Data Provided for [...] Date Comments Source BMI Calculated 35.39 03/12/2017 [facility] Neuro Weight 89.176 03/12/2017 [facility] Neuro Height 158.75 cm 03/12/2017 [facility] Neuro Temperature Oral (F) 97.8 F 03/12/2017 [facility] Neuro Heart Rate 76 03/12/2017 [facility] Neuro Systolic (mm Hg) 164 03/12/2017 [facility] Chet ro Diastolic (mm Hg) 83 03/12/2017 [facility] Ne uro Encounters Location Location Encounter Encounter Reason Attending ADM RI Stat us Source Details Type Number For Provider Date Date Visit [facility] Phone [id number] 03/11 03/13 [facility] [id number] MORRIS GALLEGOS 03/12 [facility] [id number] Morris Gallegos 03/12 03/13 [facility]2017 Neuro [facility] Procedures Procedure Code Date Perfomer Comments Source Bladder operation [id number] [facility] Neuro Hysterectomy [id number] [facility] Neur o Operation [id number] [facility] Neuro Assessment and Plan No Data Provided for This Section Plan of Care No Data Provided for This Section Social History Social History Date Source Social History TypeResponse 03/12/2017 [facility] Neur o Smoking Status Current every day smoker; Type: Cigarett es; Lives with someone who smokes; Cigarette Smoking Last 365 Days Yes; Reg Smoking Cessation Counseling No Family History No Data Provided for This Section Advance Directives No Data Provided for This Section Functional Status No Data Provided for This Section
[2019-07-14] MEDS ORDERED: ONDANSETRON 4 MG/2 ML VIAL ONE (18:56)
[2019-07-14] MEDS ORDERED: MORPHINE 4 MG/ML SYR ONE ×2 (18:56→21:37)
[2019-07-14 19:10] LABS: Absolute Lymphocytes (CBC) 2.1 K/uL (0.7-4.9); Basophils % 0.8 % (0-1.3); Hematocrit 35.3 % (36.0-45.0); Lymphocytes % 32.4 % (15.3-44.8); MPV 8.4 fL (7.6-11.3); RBC Red Blood Cell Count 4.34 M/uL (3.86-4.86)
[2019-07-14 20:58] LABS: ALT/SGPT 27 U/L (12-78); AST/SGOT 19 U/L (15-37); Albumin 3.6 g/dL (3.4-5.0); Alkaline Phosphatase 87 U/L (45-117); BUN Blood Urea Nitrogen 13 mg/dL (7-18); Bicarbonate 26 mmol/L (21-32); Bilirubin Direct < 0.1 mg/dL (0-0.2); Bilirubin Total 0.2 mg/dL (0.2-1.0); Glucose Level 99 mg/dL (74-106); Potassium 3.8 mmol/L (3.5-5.1); Protein, Total 7.5 g/dL (6.4-8.2); Sodium Level 140 mmol/L (136-145)
[2019-07-14 21:03] LABS: Lipase 151 U/L (73-393)
--- NOTE | 2019-07-14 21:22 | RAD REPORT ---
EXAM DESCRIPTION: CT - Chest For Pe Angio - 07/14/2019 9:09 pm CLINICAL HISTORY: Chest pain. sob COMPARISON: Thorax W/ Con dated 12/26/2017 TECHNIQUE: CT angiogram of the pulmonary arteries was performed with MIP. All CT scans are performed using dose optimization technique as appropriate and may include automated exposure control or mA/KV adjustment according to patient size. FINDINGS: No evidence of pulmonary thromboembolism. No acute aortic finding demonstrated. The lungs are mildly emphysematous but clear. No significant pericardial or pleural fluid. No concerning bony finding. IMPRESSION: No evidence of pulmonary thromboembolism. Mild COPD.
--- NOTE | 2019-07-14 21:27 | RAD REPORT ---
EXAM DESCRIPTION: CTAbdomen Pelvis W Contrast - 07/14/2019 9:12 pm CLINICAL HISTORY: Abdominal pain. abd pain COMPARISON: Abdomen Pelvis W Contrast dated 06/29/2019; Abdomen Pelvis W Contrast dated 10/24/2017 ; Abdomen Pelvis W Contrast dated 06/19/2016; Abdomen Pelvis W Contrast dated 03/20/2016 TECHNIQUE: Biphasic CT imaging of the abdomen and pelvis was performed with 100 ml non-ionic IV cont rast. All CT scans are performed using dose optimization technique as appropriate and may include automated exposure control or mA/KV adjustment according to patient size. FINDINGS: The lung bases are clear. Mild diffuse fatty liver is present. No focal liver lesion or biliary dilatation. Cholecystectomy cli ps. The spleen, left adrenal gland, pancreas and right kidney are within normal limits. 19 mm right a drenal mass is present. Left kidney contains a 3 cm benign cyst. Small nonobstructing stone is presen t in the inferior calyx left kidney. No bowel obstruction, free air, free fluid or abscess. Sigmoid diverticulosis coli is present without significant diverticulitis findings. Previous diverticulitis findings seen on 06/29/2019 comparative study appear improved. The appendix is not identified as a discrete structure, however, no secondary findings of appendicitis are identified. No evidence of significant lymphadenopathy. Moderate lumbosacral degenerative changes. IMPRESSION: Moderate improvement in left lower quadrant sigmoid diverticulitis findings since 2019 comparative study. No new or acute finding evident.
--- NOTE | 2019-07-15 10:28 | EDPHYS ---
Physician Documentation [facility] Name: Blanka aPrker Age: 73 yrs Sex: Female : 1945 Arrival Date: 07/14/2019 Time: 18:08 Bed 20 Private MD: ED Physician Jesse Anne HPI: 07/13 18:34 This 73 yrs old Female presents to ER via Ambulatory with complaints of jmm Diverticulitis. 18:34 The patient presents with abdominal pain. Onset: The symptoms/episode began/occurred jmm gradually, 2 week(s) ago. The symptoms radiate to right back. The symptoms are described as achy, sharp. Modifying factors: The symptoms are alleviated by nothing, the symptoms are aggravated by. The patient has experienced a previous episode. This is a 73 year old female with a history of diverticulitis, GERD, HLP that presents to the ED with complaints of ongoing abdominal pain since discharge for diverticulitis. Patient states pain has worsened and now radiates to the back. Denies vomiting or diarrhea. . Historical: - Allergies: 18:35 Codeine; sv 18:35 COLLAGENASE; sv 18:35 Demerol; sv 18:35 Hydromorphone; sv 18:35 Latex, Natural Rubber; sv 18:35 Lidocaine; sv 18:35 PENICILLINS; sv 18:35 Sulfa (Sulfonamide Antibiotics); sv 18:35 VENLAFAXINE; sv 18:35 Zanaflex; sv - PMHx: 18:35 degenerative joint disease; Diverticulitis; GERD; High Cholesterol; Hypertension; sv - PSHx: 18:35 Knee surgery; sv - Immunization history:: Adult Immunizations up to date. - Social history:: Smoking status: Patient denies any tobacco usage or history of. ROS: 18:34 Constitutional: Negative for fever, chills, and weight loss, Cardiovascular: Negative jmm for chest pain, palpitations, and edema, Respiratory: Negative for shortness of breath, cough, wheezing, and pleuritic chest pain. 18:34 Abdomen/GI: Positive for abdominal pain. 18:34 Back: Positive for radiated pain. 18:34 All other systems are negative. Exam: 18:34 Constitutional: This is a well developed, well nourished patient who is awake, alert, jmm and in no acute distress. Head/Face: atraumatic. Eyes: EOMI, no conjunctival erythema appreciated ENT: Moist Mucus Membranes Neck: Trachea midline, Supple Chest/axilla: Normal chest wall appearance and motion. Cardiovascular: Regular rate and rhythm. No edema appreciated Respiratory: Normal respirations, no respiratory distress appreciated Abdomen/GI: Non distended, soft Back: Normal ROM Skin: General appearance color normal MS/ Extremity: Moves all extremities, no obvious deformities appreciated, no edema noted to the lower extremities Neuro: Awake and alert, normal gait Psych: Behavior is normal, Mood is normal, Patient is cooperative and pleasant 18:34 Abdomen/GI: Inspection: abdomen appears normal, Bowel sounds: normal, Palpation: soft, moderate abdominal tenderness, in all quadrants. Vital Signs: 18:30 BP 162 / 82; Pulse 99; Resp 20; Temp 99.9; Pulse Ox 99% ; Weight 81.65 kg; Height 5 ft. sv 2 in. (157.48 cm); Pain 7/10; 19:30 BP 120 / 63; Pulse 75; Resp 18; Pulse Ox 96% on R/A; wh 20:58 BP 140 / 78; Pulse 73; Resp 16; Pulse Ox 98% on R/A; wh 22:00 BP 133 / 65; Pulse 74; Resp 18; Pulse Ox 98% on R/A; wh 18:30 Body Mass Index 32.92 (81.65 kg, 157.48 cm) sv MDM: 18:34 Patient medically screened. [facility] 22:03 Data reviewed: vital signs, nurses notes. Counseling: I had a detailed discussion with dean the patient and/or guardian regarding: the historical points, exam findings, and any diagnostic results supporting the discharge/admit diagnosis, radiology results, the need for outpatient follow up, to return to the emergency department if symptoms worsen or persist or if there are any questions or concerns that arise at home. ED course: abdominal pain relieved in the ED. patient advised to follow up with dr. tinoco for reevaluation. patient is otherwise given strict return precautions. patient understood and agrees with the plan of care. . 07/13 18:35 Order name: IV Saline Lock; Complete Time: 19:04 destini 07/13 18:35 Order name: Labs collected and sent; Complete Time: 19:04 [facility] Administered Medications: 18:52 Drug: Zofran (Ondansetron) 4 mg Route: IVP; Site: right antecubital; sv 19:46 Follow up: Response: No adverse reaction; Nausea is decreased 18:54 Drug: morphine 4 mg Route: IVP; Site: right antecubital; sv 19:45 Follow up: Response: No adverse reaction; Pain is decreased; RASS: Alert and Calm (0) 21:36 Drug: morphine 4 mg {Note: RASS 0.} Route: IVP; Site: right antecubital; 22:20 Follow up: Response: No adverse reaction; Pain is decreased; RASS: Alert and Calm (0) Disposition: 07/14 08:21 Co-signature as Attending Physician, Jesse Anne MD I agree with the assessment and kdr plan of care. Disposition: 07/14/19 22:04 Discharged to Home. Impression: Unspecified abdominal pain. - Condition is Stable. - Discharge Instructions: Abdominal Pain, Adult. - Prescriptions for Bentyl 20 mg Oral Tablet - take 1 tablet by ORAL route every 6 hours As needed; 20 tablet. Pepcid 20 mg Oral Tablet - take 1 tablet by ORAL route every 12 hours for 5 days; 10 tablet. Ultracet 37.5- 325 mg Oral Tablet - take 1 tablet by ORAL route every 6 hours - for up to 5 days; do not exceed 8 tablets per day.; 20 tablet. - Medication Reconciliation Form, Thank You Letter, Antibiotic Education, Prescription Opioid Use form. - Follow up: Александр Tinoco MD; When: 2 - 3 days; Reason: Recheck today's complaints, Continuance of care, Re-evaluation by your physician. Signatures: Leslie Reyes RN RN sv Rittger, Kevin, MD MD kdr Mickail, Joel, PA PA jmm Habalo, Winsy Corrections: (The following items were deleted from the chart) 07/13 22:21 22:04 07/14/2019 22:04 Discharged to Home. Impression: Unspecified abdominal pain. Condition is Stable. Forms are Medication Reconciliation Form, Thank You Letter, Antibiotic Education, Prescription Opioid Use. Follow up: Александр Tinoco; When: 2 - 3 days; Reason: Recheck today's complaints, Continuance of care, Re-evaluation by your physician. dean
--- NOTE | 2019-07-15 10:28 | ER ---
Nurse's Notes [facility] Name: Blanka Parker Age: 73 yrs Sex: Female : 1945 Arrival Date: 07/14/2019 Time: 18:08 Bed 20 Private MD: Diagnosis: Unspecified abdominal pain Presentation: 07/13 18:30 Chief complaint: Patient states: hospitalized about 2 wks ago for diverticulitis and sv was having pain mostly on the left side and sent home with prescriptions Cipro and Flagyl. Reports now she is having RUQ and LUQ pain that radiates to the back. c/o diarrhea. Coronavirus screen: Proceed with normal triage. Patient denies a cough. Patient denies shortness of breath or difficulty breathing. Patient denies measured and/or subjective temperature greater than 100.4F prior to today's visit. Patient denies travel on a cruise ship or to a country the [facility] currently lists as an affected area. Patient denies contact with known and/or suspected case of COVID-19. Ebola Screen: No symptoms or risks identified at this time. Initial Sepsis Screen: Does the patient meet any 2 criteria? HR > 90 bpm. No. Patient's initial sepsis screen is negative. Does the patient have a suspected source of infection? Yes: Acute abdominal pain. Risk Assessment: Do you want to hurt yourself or someone else? Patient reports no desire to harm self or others. Onset of symptoms was July 14, 2019. 18:30 Method Of Arrival: Ambulatory sv 18:30 Acuity: PETEY 3 sv Triage Assessment: 18:36 General: Appears in no apparent distress. uncomfortable, well developed, Behavior is sv calm, cooperative, appropriate for age. Pain: Complains of pain in right upper quadrant and left upper quadrant Pain radiates to mid back area Pain currently is 7 out of 10 on a pain scale. Neuro: Level of Consciousness is awake, alert, obeys commands, Oriented to person, place, time, situation, Moves all extremities. Full function Gait is steady. Respiratory: Airway is patent Respiratory effort is even, unlabored, Respiratory pattern is regular, symmetrical. GI: Abdomen is round Reports upper abdominal pain, diarrhea. Derm: Skin is pink, warm \T\ dry. Historical: - Allergies: 18:35 Codeine; sv 18:35 COLLAGENASE; sv 18:35 Demerol; sv 18:35 Hydromorphone; sv 18:35 Latex, Natural Rubber; sv 18:35 Lidocaine; sv 18:35 PENICILLINS; sv 18:35 Sulfa (Sulfonamide Antibiotics); sv 18:35 VENLAFAXINE; sv 18:35 Zanaflex; sv - PMHx: 18:35 degenerative joint disease; Diverticulitis; GERD; High Cholesterol; Hypertension; sv - PSHx: 18:35 Knee surgery; sv - Immunization history:: Adult Immunizations up to date. - Social history:: Smoking status: Patient denies any tobacco usage or history of. Screenin:36 Abuse screen: Denies threats or abuse. Denies injuries from another. Nutritional sv screening: No deficits noted. Tuberculosis screening: No symptoms or risk factors identified. Fall Risk None identified. Assessment: 19:10 General: Appears in no apparent distress. Behavior is calm, cooperative, appropriate wh for age. Pain: Complains of pain in abdomen Pain radiates to mid back area Pain currently is 4 out of 10 on a pain scale. Quality of pain is described as squeezing. Neuro: Level of Consciousness is awake, alert, obeys commands, Oriented to person, place, time, situation, Appropriate for age. Cardiovascular: Heart tones S1 S2. Respiratory: Airway is patent Respiratory effort is even, unlabored, Respiratory pattern is regular, symmetrical, Breath sounds are clear bilaterally. GI: Abdomen is flat, non-distended, Bowel sounds present X 4 quads. Abd is soft Abdomen is tender to palpation Reports lower abdominal pain, upper abdominal pain. : No signs and/or symptoms were reported regarding the genitourinary system. EENT: No signs and/or symptoms were reported regarding the EENT system. Derm: Skin is intact, is healthy with good turgor, Skin is pink, warm \T\ dry. normal. Musculoskeletal: Circulation, motion, and sensation intact. 19:49 Reassessment: Patient appears in no apparent distress at this time. No changes from previously documented assessment. Patient and/or family updated on plan of care and expected duration. Pain level reassessed. Patient is alert, oriented x 3, equal unlabored respirations, skin warm/dry/pink. Spoke with [facility] states Chemistry machine down, will take about an hour to fix, notified CN. 20:56 Reassessment: Patient appears in no apparent distress at this time. No changes from previously documented assessment. Patient and/or family updated on plan of care and expected duration. Pain level reassessed. Patient is alert, oriented x 3, equal unlabored respirations, skin warm/dry/pink. Spoke with Lab [facility] followed up results for BMP states machine is now running. 22:00 Reassessment: Patient appears in no apparent distress at this time. No changes from previously documented assessment. Patient and/or family updated on plan of care and expected duration. Pain level reassessed. Patient is alert, oriented x 3, equal unlabored respirations, skin warm/dry/pink. Patient states feeling better. Patient states symptoms have improved. Vital Signs: 18:30 BP 162 / 82; Pulse 99; Resp 20; Temp 99.9; Pulse Ox 99% ; Weight 81.65 kg; Height 5 ft. sv 2 in. (157.48 cm); Pain 7/10; 19:30 BP 120 / 63; Pulse 75; Resp 18; Pulse Ox 96% on R/A; wh 20:58 BP 140 / 78; Pulse 73; Resp 16; Pulse Ox 98% on R/A; wh 22:00 BP 133 / 65; Pulse 74; Resp 18; Pulse Ox 98% on R/A; wh 18:30 Body Mass Index 32.92 (81.65 kg, 157.48 cm) sv ED Course: 18:08 Patient arrived in ED. ds1 18:25 Fernando Laboy PA is PHCP. [facility] 18:25 Jesse Anne MD is Attending Physician. [facility] 18:30 Leslie Reyes RN is Primary Nurse. 18:33 Triage completed. sv 18:35 Arm band placed on. sv 18:36 Nurse Practitioner and/or Physician Hydrogenation Operator to see patient. sv 18:36 Patient has correct armband on for positive identification. Bed in low position. Call light in reach. Pulse ox on. NIBP on. 18:48 Radiology exam delayed due to lab results not completed at this time. (BUN/Creatinine). vm2 19:04 Primary Nurse role handed off by Leslie Reyes, SCOTTIE 19:06 Report given to Dom RUBIN. 19:19 Dom Osuna is Primary Nurse. 22:04 Александр Melendez MD is Referral Physician. [facility] 22:21 No provider procedures requiring assistance completed. IV discontinued, intact, bleeding controlled, No redness/swelling at site. Administered Medications: 18:52 Drug: Zofran (Ondansetron) 4 mg Route: IVP; Site: right antecubital; sv 19:46 Follow up: Response: No adverse reaction; Nausea is decreased 18:54 Drug: morphine 4 mg Route: IVP; Site: right antecubital; sv 19:45 Follow up: Response: No adverse reaction; Pain is decreased; RASS: Alert and Calm (0) 21:36 Drug: morphine 4 mg {Note: RASS 0.} Route: IVP; Site: right antecubital; 22:20 Follow up: Response: No adverse reaction; Pain is decreased; RASS: Alert and Calm (0) Outcome: 22:04 Discharge ordered by . [facility] 22:21 Discharged to home ambulatory. 22:21 Condition: stable 22:21 Discharge instructions given to patient, Instructed on discharge instructions, follow up and referral plans. no drinking with medication, no driving heavy equipment, medication usage, POC Demonstrated understanding of instructions, follow-up care, medications, POC Prescriptions given X 3. 22:21 Patient left the ED. Signatures: Leslie Reyes RN RN Fernando Leonard PA PA [facility] Cindi Zheng ds1 Tika Lang vm2 Dom Osuna Corrections: (The following items were deleted from the chart) 20:57 19:49 Reassessment: Patient appears in no apparent distress at this time. No changes wh from previously documented assessment. Patient and/or family updated on plan of care and expected duration. Pain level reassessed. Patient is alert, oriented x 3, equal unlabored respirations, skin warm/dry/pink.
[2019-07-15 22:15] VITALS: O2SAT 98
[2019-07-15 22:16] VITALS: BP 133/65
[2019-07-15 22:17] VITALS: TEMP 98
== END 2019-07-14 22:21 | disposition home or self-care (01) ==
LOC: ER 18:05
DX: R10.84 Generalized abdominal pain (principal); K57.92 Diverticulitis of intestine, part unspecified, without perforation or abscess without bleeding; K21.9 Gastro-esophageal reflux disease without esophagitis; I10 Essential (primary) hypertension; Z88.0 Allergy status to penicillin; Z88.2 Allergy status to sulfonamides; Z88.5 Allergy status to narcotic agent; Z88.6 Allergy status to analgesic agent; Z88.8 Allergy status to other drugs, medicaments and biological substances; Z91.040 Latex allergy status; Z91.048 Other nonmedicinal substance allergy status
CPT/HCPCS: 85025; 80048; 36415; 80076; 83605; 83690; 84145; 71275; 74177; 96375; 96374; 99283; Q9967; J2405

== ENCOUNTER 2019-11-10 16:52 | Emergency (ER) | payer OTHER ==
--- OUTSIDE RECORDS SUMMARY | 2019-11-10 16:54 | XMS REPORT ---
:1945 Author Organization [employer] Care Team Providers Name Role Phone Billy, Na Provider Role Unavailable Allergies, Adverse Reactions, Alerts Substance Reaction Event Type Zanaflex anaphylaxis Drug Allergy Demerol anaphylaxis Drug Allergy Problems Problem Type Condition Code Onset Dates Condition Statu s Problem Irritable bowel K58.9 Active Problem Hyperlipemia E78.5 Active Problem Reflux K21.9 Active Problem COPD (chronic obstructive pulmonary J44.9 Active disease) Assessment Medicare annual wellness visit, Z00.00 Active subsequent Problem Asthma J45.909 Active Problem Allergic rhinitis J30.9 Active Problem Diverticulitis K57.92 Active Problem HTN (hypertension) I10 Active Problem Vitamin D deficiency E55.9 Active Problem Osteoporosis M81.0 Active Problem 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 Problem Cigarette nicotine dependence F17.210 Active without complication Problem 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 Problem Goiter E04.9 Active Problem High cholesterol E78.00 Active Problem Anxiety with depression F41.8 Acti ve Problem Sinus problem J34.9 Active Problem Primary insomnia F51.01 Active Problem Cancer C80.1 Active Medications Medication Code Code Instructions Start End Status Dosage System Date Date Amlodipine-Olm [facility] 98407502443 10-20 MG Orally Activ e 1 tablet esartan Once a day Celexa [facility] 69468210723 20 MG Orally Active 1 table t Once a day Baclofen [facility] [address]-01 0.05 MG/ML Active as dir ected Intrathecal Ambien [facility] 68149148027 10 MG Orally Active 1 table t at Once a day bedtime as needed Prilosec [facility] [address]-62 40 MG Orally Active 1 ca psule Once a day 30 minutes before morning meal Results No Known Results Summary Purpose [employer] Submission
--- OUTSIDE RECORDS SUMMARY | 2019-11-10 16:54 | XMS REPORT ---
:1945 Author Organization [employer] Care Team Providers Name Role Phone Billy, Na Provider Role Unavailable Allergies, Adverse Reactions, Alerts Substance Reaction Event Type Zanaflex anaphylaxis Drug Allergy Demerol anaphylaxis Drug Allergy Problems Problem Type Condition Code Onset Dates Condition Statu s Assessment Cigarette nicotine dependence F17.210 Active without complication Assessment Blood tests for routine general Z00.00 Active physical examination Assessment Vitamin D deficiency E55.9 Active Assessment COPD (chronic obstructive pulmonary J44.9 Active disease) Assessment Goiter E04.9 Active Assessment 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 Assessment Primary insomnia F51.01 Active Problem Sinus problem J34.9 Active Assessment Anxiety with depression F41.8 Acti ve Problem Cancer C80.1 Active Assessment Reflux K21.9 Active Problem Irritable bowel K58.9 Active Problem Hyperlipemia E78.5 Active Problem Reflux K21.9 Active Problem COPD (chronic obstructive pulmonary J44.9 Active disease) Problem Asthma J45.909 Active Assessment HTN (hypertension) I10 Active Assessment High cholesterol E78.00 Active Problem Allergic rhinitis J30.9 Active Assessment Hyperlipemia E78.5 Active Problem Diverticulitis K57.92 Active Problem HTN (hypertension) I10 Active Problem Vitamin D deficiency E55.9 Active Problem Osteoporosis M81.0 Active Problem 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 Problem Cigarette nicotine dependence F17.210 Active without complication Problem 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 Problem Goiter E04.9 Active Problem High cholesterol E78.00 Active Problem Anxiety with depression F41.8 Acti ve Problem Primary insomnia F51.01 Active Medications Medication Code Code Instructions Start End Status Dosage System Date Date Baclofen [facility] [address]-29 0.05 MG/ML Active as dir ected Intrathecal Amlodipine-Olm [facility] 46110614845 10-20 MG Orally Activ e 1 tablet esartan Once a day Prilosec [facility] [address]-84 40 MG Orally Active 1 ca psule Once a day 30 minutes before morning meal Dino [facility] 81239709883 10 MG Orally Active 1 table t at Once a day bedtime as needed Celexa [facility] 17694269007 20 MG Orally Active 1 table t Once a day Results No Known Results Summary Purpose [employer] Submission
--- OUTSIDE RECORDS SUMMARY | 2019-11-10 16:54 | XMS REPORT ---
:1945 Author Organization [employer] Care Team Providers Name Role Phone Billy, Na Provider Role Unavailable Allergies No Known Allergies Problems Problem Type Condition Code Onset Dates Condition Statu s Problem Irritable bowel K58.9 Active Problem Hyperlipemia E78.5 Active Problem Reflux K21.9 Active Problem COPD (chronic obstructive pulmonary J44.9 Active disease) Problem Asthma J45.909 Active Problem Allergic rhinitis [...] Start End Status Dosage System Date Date Atorvastatin ND 62381589272 20 MG Orally August 16, Active 1 tablet Calcium Once a day 2019 Ergocalciferol ND 26709081256 57831 UNIT August 16Nov Active 1 capsule Orally once a 2020 , week 2019 Results No Known Results Summary Purpose [employer] Submission
--- OUTSIDE RECORDS SUMMARY | 2019-11-10 16:54 | XMS REPORT | Continuity of Care Document ---
:1945 Author Organization [facility] t Address [address] [place] [address] Care Team Providers Name Role Phone Vega MERAZ L Attending Clinician Lincoln CM Attending Clinician Unavailable Salome Bergman Attending Clinician Problems Condition Condition Condition Status Onset Resolution Last Treating Co mments Source Name Details Category Date Date Treatment Clinician Date Irritable Irritable Problem Active [facility] Hyperlipem Hyperlipem Problem Active [facility] Reflux Reflux Problem [facility] COPD COPD Problem Active [facility] (chronic (chronic [facility] obstructiv obstructiv Me moria e e l pulmonary pulmonary Outp ati disease) disease) ent Clinics Asthma Asthma Problem [facility] Allergic Allergic Problem Active [facility] Diverticul Diverticul Problem Active [facility] itis itis [facility] HTN HTN Problem Active [facility] (hypertens (hypertens Jessica kes - ion) ion) [facility] Vitamin D Vitamin D Problem Active [facility] deficiency deficiency [facility] Osteoporos Osteoporos Problem Active [facility] is is [facility] Other Other Problem Active [facility] osteoarthr osteoarthr Jessica kes - itis itis Memoria involving involving l multiple multiple Outpat i joints joints ent Clinics Cigarette Cigarette Problem Active [facility] nicotine nicotine [facility] dependence dependence Me moria without without l complicati complicati Ou tpati on on ent Clinics Primary Primary Problem Active [facility] osteoarthr osteoarthr Jessica kes - itis of itis of Memoria right right l ankle ankle [facility] Goiter Goiter Problem [facility] High High Problem Active [facility] cholestero cholestero Jessica kes - l l [facility] Anxiety Anxiety Problem Active [facility] with with [facility] depression depression Me moria l [facility] Sinus Sinus Problem Active [facility] problem problem [facility] Primary Primary Problem Active [facility] insomnia insomnia [facility] Cancer Cancer Problem [facility] COVID-19 COVID-[address] [facility] Cough Cough Diagnosis [facility] Chest Chest Diagnosis Active [facility] congestion congestion Jessica kes - [facility] Diverticul Problem Active 2017-03-15 M emoria ar disease 04:23:59 l (disorder) Kraig n Diverticul ar disease (disorder) Active Problem 03/15/2017 [facility] Diverticul Problem Active 2017-03-15 M emoria itis 04:23:59 l (disorder) Kraig n Diverticul itis (disorder) Active Problem 03/15/2017 [facility] Morbid Problem Active 2017-03-15 Memor ia obesity 04:23:59 l (disorder) Morbid Herm daisy obesity (disorder) Active Problem 03/15/2017 [facility] Allergies, Adverse Reactions, Alerts Allergy Allergy Status Severity Reaction(s) Onset Inactive Treating Comm ents Source Name Type Date Date Clinician Zanaflex Adverse Active anaphylaxis [facility] Reaction [facility] Demerol Adverse Active anaphylaxis [facility] Reaction [facility] codeine codeine Active Memoria l Renny Zanaflex Zanaflex Active Memori a l [place] Demerol Demerol Active Memoria HCl HCl l [place] Latex Latex Active Memoria l Renny Social History Smoking Status Start Date Stop Date Source Social History 2017-03-12 22:12:03 Benedicto rojas Medications Ordered Filled Start Stop Current Ordering Indication Dosage Frequency Signature Comments Components Source Medication Medication Date Date Medication? Clinician (SIG) Name Name Ipratropium Ipratropium 2020- Yes Na Billy [address] [facility] Merna Merna 10-28 in each [facility] - 00:00: 00:00 nostril Memoria 00 :00 l [facility] Azithromyci Azithromyci 2019-0 2020- Yes Na Billy [address] [facility] n n 10-28 on the [facility] - 00:00: 00:00 first day, Memori a 00 :00 then 1 l tablet Outpati daily for ent 4 days Clinics Baclofen Baclofen 2020- Yes Na Billy 1/[address] [facility] 10-10 with food [facility] - 00:00: 00:00 or milk Memoria 00 :00 [facility] Chantix Chantix 2020- Yes Na Billy as [facility] Starting Starting 10-10 directed Jessica kes - Month [place] Month [place] 00:00: 00:00 Me moria 00 :00 [facility] Atorvastati Atorvastati Yes Na Billy [address] [facility] n Calcium n Calcium 08-16 [facility] - 00:[facility]: Memoria 00 [facility] Ergocalcife Ergocalcife 2020- Yes Na Billy [address] [facility] rol rol 08-16 [facility] 00:[facility]: 00:00 Memoria 00 :00 [facility] Citalopram Yes 40 mg = 1 Me moria 40 MG Oral 1-03 tab, PO, l Tablet 22:12: Daily, 0 Renny [Celexa] 00 Refill(s) spironolact Yes 25 mg = 1 M emoria one 25 mg 1-03 tab, PO, l oral tablet 22:12: BID, 0 Herm daisy 00 Refill(s) atorvastati Yes 20 mg = 1 M emoria n 20 mg 1-03 tab, PO, l oral tablet 22:12: Daily, 0 He rmann 00 Refill(s) cyclobenzap Yes 10 mg = 1 M emoria rine 10 mg 1-03 tab, PO, l oral tablet 22:12: TID, 0 Herm daisy 00 Refill(s) Klor-Con 10 Yes 10 mEq, Mem oria -03 PO, BID, 0 l 22:12: Refill(s) Furosemide Yes 40 mg = 1 Me moria 40 MG Oral 03-12 tab, PO, l Tablet 22:12: Daily, 0 Refill(s) gabapentin Yes 300 mg = 3 M emoria 100 MG Oral 03-12 cap, PO, l Capsule 22:12: TID, 0 Refill(s) Acetaminoph Yes 1 tab, PO, Memoria en 325 MG / 03 Q6H, 0 l Hydrocodone 22:12: Refill(s) H ermann Bitartrate 00 5 MG Oral Tablet [[place] 5/325] Omeprazole Yes PO, Daily, M emoria 03 0 l 22:12: Refill(s) Celexa Celexa Yes Na Billy [address] [facility] Baclofen Baclofen Yes Na Billy as [facility] directed [facility] Prilosec Prilosec Yes Na Billy [address] [facility] 30 minutes [facility] - before Memoria morning l meal [facility]ics Ambien Ambien Yes Na Billy [address] [facility] at bedtime [facility] - as needed Memoria l [facility] ent Clinics Amlodipine- Amlodipine- Yes Na Billy [address] [facility] Olmesartan Olmesartan [place] [facility] - Mem[facility] l [facility] Clinics Vital Signs Vital Name Observation Time Observation Value Comments Source BMI Calculated 2017-03-12 22:05:00 Karishma Mei Weight 2017-03-12 22:05:00 [facility] Height 2017-03-12 22:05:00 158.75 cm [facility] Temperature Oral (F) 2017-03-12 22:05:00 97.8 F [facility] Heart Rate 2017-03-12 22:05:00 [facility] Systolic (mm Hg) 2017-03-12 22:05:00 Richy Lawson Diastolic (mm Hg) 2017-03-12 22:05:00 [facility] jaredal Renny Procedures Procedure Date / Time Performed Performing Clinician [facility] e Bladder operation [facility] nn Hysterectomy [facility] Operation [facility] Encounters Start End Encounter Admission Attending Care Care Encounter Source Date/Time Date/Time Type Type Clinicians Facility Department ID 2019-11-05 2019-11-05 [facility] [id number] [facility] 09:21:00 09:21:00 t [employer] [facility] Medicine l Medicine Outpati ent Clinics 2019-10-29 2019-10-29 [facility] [id number] [address] 11:34:00 11:34:00 t [employer] [facility] Medicine l Medicine Outpati ent Clinics 2019-10-29 2019-10-29 [facility] [id number] [facility] 10:00:00 10:00:00 t [employer] [facility] Medicine l Medicine Outpati ent Clinics 2019-10-28 2019-10-28 [facility] [id number] 14:09:00 14:09:00 t [employer] [facility] Medicine l Medicine Outpati ent Clinics 2019-10-11 2019-10-11 [facility] [id number] [address] 15:20:00 15:20:00 t [employer] [facility] Medicine l Medicine Outpati ent Clinics 2019-10-07 2019-10-07 [facility] [id number] 10:56:00 10:56:00 [facility] l Medicine Outpati ent Clinics 2019-10-07 2019-10-07 [facility] [id number] 10:00:00 10:00:00 t [employer] [facility] Medicine l Medicine Outpati ent Clinics 2019-10-06 2019-10-06 [facility] [id number] [address] 15:33:00 15:33:00 t [employer] [facility] Medicine l Medicine Outpati ent Clinics 2019-10-06 2019-10-06 [facility] [id number] 13:46:00 13:46:00 t [employer] [facility] Medicine l Medicine Outpati ent Clinics 2019-09-30 2019-09-30 [facility] [id number] 10:09:00 10:09:[address] [employer] - [address] [facility] Medicine Outpati ent Clinics 2019-08-29 2019-08-29 [facility] [id number] 03:04:00 03:04:[address] [employer] - [address] [facility] Medicine Outpati ent Clinics 2019-08-26 2019-08-26 [facility] [id number] 02:31:00 02:31:00 [place] [employer] [place] [address] - Drive [facility] Medicine Outpati ent Clinics 2019-08-16 2019-08-16 [facility] [id number] 08:05:00 08:05:00 [place] [employer] - [address] [facility] Medicine Outpati ent Clinics 2019-08-13 2019-08-13 [facility] [id number] 13:00:00 13:00:00 [place] [employer] - [address] [facility] Medicine Outpati ent Clinics 2019-08-13 2019-08-13 [facility] [id number] 13:00:00 13:00:00 [place] [employer] - [address] [facility] Medicine Outpati ent [facility] 2019-06-10 2019-06-10 Office [facility] [id number] 07:53:05 08:11:21 Visit [facility] [id number] Surgical [id number] Specialti [id number] es [address] [place] 2019-06-10 2019-06-10 [id number] 00:00:00 00:00:00 [facility] [id number] Surgical [id number] Specialti [id number] es [address] [place] 2017-03-12 2017-03-12 Outpatient Morris Bergman MISCHER MHMISCHER [id number] 07:45:00 23:59:59 2017-03-11 2017-03-12 Outpatient MHMISCHER MHMISCHER [id number] 09:25:00 23:59:59 04 Results Test Description Test Time Test Comments Results Result Sourc e Comments CHEST 2 VIEWS 2018-12-08 10:09:00 [facility] [address] [address] Patient Name: YANA KURTZ MR #: [id number] : 1945 Age/Sex: 73/F Req #: [id number] Adm Physician: Ordered by: SILVIA CM MD Report #: [id number] Location: OR Room/Bed: Procedure: [id number] DX/CHEST 2 VIEWS Exam Date: 12/08/18 Exam Time: 0950 REPORT STATUS: Signed TECHNIQUE: Frontal and lateral views of the chest. INDICATION: PRE-OP [facility] [id number]. COMPARISON: None. FINDINGS: LINES/TUBES: None. LUNGS: There is some streaky opacities in the left base which are likely due to atelectasis. No consolidation or pulmonary edema. PLEURA: No pleural effusion or pneumothorax. HEART AND MEDIASTINUM: The cardiomediastinal silhouette is within normal limits. SOFT TISSUES AND BONES: Prior anterior cervical disc fusion. Several surgical clips in the upper abdomen. Mild degenerative disc changes visualized spine. Calcification of the abdominal aorta. IMPRESSION: Mild left basilar subsegmental atelectasis. Otherwise, no acute cardiopulmonary abnormalities. Signed by: Amos Campos JR, MD on 12/08/2018 10:13 AM Dictated By: AMOS CAMPOS MD [id number] Transcribed By: AUDREY on 12/08/18 1013 COPY TO: SILVIA CM MD
--- OUTSIDE RECORDS SUMMARY | 2019-11-10 16:54 | XMS REPORT | Continuity of Care Document ---
:1945 Author Organization [facility] Care Team Providers Name Role Phone [facility] Unavailable Un available Problems Problem Status Onset [...] Neuro Bitartrate 5 MG Refill(s) Oral Tablet [[place] 5/325] Omeprazole PO, Daily, Active [facility] 0 [...] Date Comments Source BMI Calculated 35.39 03/12/2017 [facility] Weight 89.176 03/12/2017 [facility] Height 158.75 cm 03/12/2017 [facility] Temperature Oral (F) 97.8 F 03/12/2017 [facility] Heart Rate 76 03/12/2017 [facility] Systolic (mm Hg) 164 03/12/2017 [facility] ro Diastolic (mm Hg) 83 03/12/2017 [facility] uro Encounters Location Location Encounter Encounter Reason Attending ADM OR Stat us Source Details Type Number For Provider Date Date Visit [facility] Phone [phone] 03/11 03/13 [facility] [id number] MORRIS GALLEGOS 03/12 [facility] Out[facility] [id number] Morris Gallegos 03/12 03/13 [facility] /2017 [facility] Procedures Procedure Code Date Perfomer Comments Source Bladder operation [id number] [facility] Hysterectomy [id number] [facility] Operation [id number] [facility] Assessment and Plan No Data Provided for This Section Plan of Care No Data Provided for This Section Social History Social History Date Source Social History TypeResponse 03/12/2017 [facility] Smoking Status Current every day smoker; Type: Cigarett es; Lives with someone who smokes; Cigarette Smoking Last 365 Days Yes; Reg Smoking Cessation Counseling No Family History No Data Provided for This Section Advance Directives No Data Provided for This Section Functional Status No Data Provided for This Section
--- OUTSIDE RECORDS SUMMARY | 2019-11-10 16:54 | XMS REPORT ---
[...] F51.01 Active Problem Cancer C80.1 Active Medications No Known Medications Results No Known Results Summary Purpose eClinicalWorks Submission
--- OUTSIDE RECORDS SUMMARY | 2019-11-10 16:55 | XMS REPORT ---
[...] Start End Status Dosage System Date Date Celexa [facility] 44288947014 20 MG Orally Active 1 table t Once a day Fluconazole [facility] 91143339953 150 MG Orally 1 September Active 1 tablet dose today, august 05, repeat dose in 2019 2019 1 week Atorvastatin [facility] 26511414846 20 MG Orally August Active 1 tablet Calcium Once a day 2019 Prilosec [facility] [address]-96 40 MG Orally Active 1 ca psule Once a day 30 minutes before morning meal Amlodipine-Olmesa [facility] 70298790153 10-20 MG Orally Ac tive 1 tablet rtan Once a day Clotrimazole [facility] 21604182056 10 MG September Active 1 troch e Mouth/Throat , slowly Five times a 2019 2019 dissolve day in mouth Ergocalciferol [facility] 73056975819 93203 UNIT August Active 1 capsule Orally once a 09, , week 2019 2019 Ambien [facility] 35555439347 10 MG Active TAKE 1 TABLET BY MOUTH EVERY DAY AT BEDTIME NEEDED Baclofen [facility] [address]-30 0.05 MG/ML Active as Intrathecal directed Results No Known Results Summary Purpose eClinicalWorks Submission
--- OUTSIDE RECORDS SUMMARY | 2019-11-10 16:55 | XMS REPORT ---
[...] End Status Dosage System Date Date Celexa [facility] 75321956938 20 MG Orally Active 1 table t Once a day Baclofen [facility] [address]-89 0.05 MG/ML Active as Intrathecal directed Ergocalciferol [facility] 96457582649 02591 UNIT August Active 1 capsule Orally once a , , week 2019 2019 Atorvastatin [facility] 91923483068 20 MG Orally August Active 1 tablet Calcium Once a day 2019 Amlodipine-Olmesa [facility] 91455696525 10-20 MG Orally Ac tive 1 tablet rtan Once a day Clotrimazole [facility] 23687402415 10 MG September Active 1 troch e Mouth/Throat , slowly Five times a 2019 2019 dissolve day in mouth Prilosec [facility] [address]-30 40 MG Orally Active 1 ca psule Once a day 30 minutes before morning meal Ambien [facility] 48870837275 10 MG Active TAKE 1 TABLET BY MOUTH EVERY DAY AT BEDTIME NEEDED Results No Known Results Summary Purpose eClinicalWorks Submission
--- OUTSIDE RECORDS SUMMARY | 2019-11-10 16:56 | XMS REPORT ---
:1945 Author Organization [employer] Care Team Providers Name Role Phone Billy, Na Provider Role Unavailable Allergies No Known Allergies Problems Problem Type Condition Code Onset Dates Condition Statu s Problem Irritable bowel K58.9 Active Problem Hyperlipemia E78.5 Active Problem Reflux K21.9 Active Problem COPD (chronic obstructive pulmonary J44.9 Active disease) Assessment Viral URI with cough J06.9 Active Problem Asthma J45.909 Active Assessment Acute nonintractable headache, R51 Active unspecified headache type Assessment Allergic rhinitis J30.9 Active Problem Allergic rhinitis J30.9 Active Problem [...] End Status Dosage System Date Date Atorvastatin [facility] 51022381131 20 MG Orally August Active 1 tablet Calcium Once a day 2019 Ergocalciferol [facility] 12853795420 53040 UNIT August Active 1 capsule Orally once a 09, 07, week 2019 2019 Celexa [facility] 06383080428 20 MG Orally Active 1 table t Once a day Amlodipine-Olmesa [facility] 48248270803 5-20 MG Orally Act joseph 1 tablet rtan Once a day Azithromycin [facility] 93346343219 250 MG Orally Oct 28Oct Active 2 tablets Once a day 2019, on the 2019 first day, then 1 tablet daily for 4 days Ambien [facility] 46889462121 10 MG Active TAKE 1 TABLET BY MOUTH EVERY DAY AT BEDTIME NEEDED Baclofen [facility] [address]-17 0.05 MG/ML Active as Intrathecal directed Baclofen [facility] 04293515221 10 MG Orally Oct 10Jan Active 1/ ta blet two times a day 2019 03, with cori d prn back pain 2019 or milk spasms Chantix Starting [facility] 42002745643 0.5 MG X 11 & 1 Oct 10Nov Act joseph as Month [place] MG X 42 Orally 2019 04, directe d daily 2019 Prilosec [facility] [address]-03 40 MG Orally Active 1 ca psule Once a day 30 minutes before morning meal Ipratropium [facility] 83943751890 0.06 % Nasally Oct 28Apr Active 2 sprays [place] every 8 hrs 2019, in each 2020 nostril Ambien [facility] 60124290326 10 MG Orally Active 1 table t Once a day at bedtime as needed Results Name Result Date Reference Range Unit Abnormali ty Flag Novel Coronavirus (COVID-19), CORBY ----SARS-CoV-2, CORBY Detected [id number] Not Detected A Summary Purpose eClinicalWorks Submission
--- OUTSIDE RECORDS SUMMARY | 2019-11-10 16:56 | XMS REPORT ---
:1945 Author Organization [employer] Care Team Providers Name Role Phone Billy, Na Provider Role Unavailable Allergies No Known Allergies Problems Problem Type Condition Code Onset Dates Condition Statu s Problem Irritable bowel K58.9 Active Problem Hyperlipemia E78.5 Active Problem Reflux K21.9 Active Problem COPD (chronic obstructive pulmonary J44.9 Active disease) Assessment COVID-19 U07.1 Active Problem Asthma J45.909 Active Assessment Cough R05 Active Assessment Chest congestion R09.89 Active Problem Allergic rhinitis J30.9 Active Problem [...] C80.1 Active Medications No Known Medications Results Name Result Date Reference Range Unit Abnormali ty Flag Chest Pa And Lat (2 Views) Summary Purpose eClinicalWorks Submission
--- OUTSIDE RECORDS SUMMARY | 2019-11-10 16:56 | XMS REPORT ---
:1945 Author Organization eClinicalWorks Care Team Providers Name Role Phone Billy, Na Provider Role Unavailable Allergies, Adverse Reactions, Alerts Substance Reaction Event Type Zanaflex anaphylaxis Drug Allergy Demerol anaphylaxis Drug Allergy Problems Problem Type Condition Code Onset Dates Condition Statu s Assessment Encounter for smoking cessation Z71.6 Active counseling Assessment Cigarette nicotine dependence F17.210 Active without complication Assessment Vitamin D deficiency E55.9 Active Assessment COPD (chronic obstructive pulmonary J44.9 Active disease) Assessment Goiter E04.9 Active Assessment 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 Problem Sinus problem J34.9 Active Assessment Primary insomnia F51.01 Active Problem Cancer C80.1 Active Assessment Anxiety with depression F41.8 Acti ve Problem Irritable bowel K58.9 Active Problem Hyperlipemia [...] Start End Status Dosage System Date Date Ambien [facility] 98492030139 10 MG Orally Active 1 table t Once a day at bedtime as needed Baclofen [facility] [address]-51 0.05 MG/ML Active as Intrathecal directed Clotrimazole [facility] 54002204725 10 MG September Active 1 troch e Mouth/Throat , , slowly Five times a 2019 2019 dissolve day in mouth Amlodipine-Olmesa [facility] 89318418376 5-20 MG Orally Act joseph 1 tablet rtan Once a day Prilosec [facility] [address]-09 40 MG Orally Active 1 ca psule Once a day 30 minutes before morning meal Atorvastatin [facility] 36840124237 20 MG Orally August Active 1 tablet Calcium Once a day 2019 Celexa [facility] 65227486686 20 MG Orally Active 1 table t Once a day Chantix Starting [facility] 04311102655 0.5 MG X 11 & 1 Oct 10Nov Act joseph as Month [place] MG X 42 Orally 2019 04, directe d daily 2019 Ambien [facility] 34620757156 10 MG Active TAKE 1 TABLET BY MOUTH EVERY DAY AT BEDTIME NEEDED Baclofen [facility] 10946013905 10 MG Orally Oct 10Jan Active 1/2 ta blet two times a day 2019 03, with cori d prn back pain 2019 or milk spasms Ergocalciferol [facility] 93785770155 92360 UNIT August Active 1 capsule Orally once a , , week 2019 2019 Results No Known Results Summary Purpose eClinicalWorks Submission
--- OUTSIDE RECORDS SUMMARY | 2019-11-10 16:56 | XMS REPORT ---
:1945 Author Organization [employer] Care Team Providers Name Role Phone Chaz Bertin Provider Role Unavailable Allergies, Adverse Reactions, Alerts Substance Reaction Event Type Zanaflex anaphylaxis Drug Allergy Demerol anaphylaxis Drug Allergy Problems Problem Type Condition Code Onset Dates Condition Statu s Problem Irritable bowel K58.9 Active Problem Hyperlipemia E78.5 Active Problem Reflux K21.9 Active Problem COPD (chronic obstructive pulmonary J44.9 Active disease) Assessment Contact with and (suspected) Z20.818 Active exposure to other bacterial communicable diseases Problem Asthma J45.909 Active Assessment Fever, unspecified fever cause R50.9 Active Assessment Diarrhea, unspecified type R19.7 A ctive Problem Allergic rhinitis J30.9 Active Problem Diverticulitis [...] End Status Dosage System Date Date Baclofen [facility] [address]-61 0.05 MG/ML Active as Intrathecal directed Ambien [facility] 73381893518 10 MG Active TAKE 1 TABLET BY MOUTH EVERY DAY AT BEDTIME NEEDED Clotrimazole [facility] 62735991106 10 MG September Active 1 troch e Mouth/Throat , slowly Five times a 2019 2019 dissolve day in mouth Prilosec [facility] [address]-05 40 MG Orally Active 1 ca psule Once a day 30 minutes before morning meal Amlodipine-Olmesa [facility] 35717068108 10-20 MG Orally Ac tive 1 tablet rtan Once a day Atorvastatin [facility] 24305876599 20 MG Orally August Active 1 tablet Calcium Once a day 2019 Ergocalciferol [facility] 17343304330 29898 UNIT August Active 1 capsule Orally once a , , week 2019 2019 Fluconazole [facility] 61166658644 150 MG Orally 1 September Active 1 tablet dose today, august 05, repeat dose in 2019 2019 1 week Celexa [facility] 31174198878 20 MG Orally Active 1 table t Once a day Results No Known Results Summary Purpose [employer] Submission
[2019-11-10 18:32] LABS: Absolute Lymphocytes (CBC) 2.3 K/uL (0.7-4.9); Basophils % 2.1 % (0-1.3); Hematocrit 35.3 % (36.0-45.0); MPV 9.4 fL (7.6-11.3); RBC Red Blood Cell Count 4.22 M/uL (3.86-4.86)
[2019-11-10 18:33] LABS: Protime INR 1.13
--- NOTE | 2019-11-10 18:47 | RAD REPORT ---
EXAM DESCRIPTION: Jessica Single View11/10/2019 6:38 pm CLINICAL HISTORY: Chest pain COMPARISON: November 05, 2019 FINDINGS: Mild bilateral pulmonary opacities appear partially resolved Heart is normal size
[2019-11-10 18:53] LABS: ALT/SGPT 29 U/L (12-78); AST/SGOT 19 U/L (15-37); Albumin 3.6 g/dL (3.4-5.0); Alkaline Phosphatase 81 U/L (45-117); BUN Blood Urea Nitrogen 12 mg/dL (7-18); Bicarbonate 25 mmol/L (21-32); Bilirubin Direct < 0.1 mg/dL (0-0.2); Bilirubin Total 0.3 mg/dL (0.2-1.0); Glucose Level 87 mg/dL (74-106); Magnesium 1.7 mg/dL (1.8-2.4); NT PRO-BNP 62 pg/mL (<125); Protein, Total 7.2 g/dL (6.4-8.2); Sodium Level 140 mmol/L (136-145); Troponin (Emerg Dept Use Only) < 0.02 ng/mL (0.0-0.045)
[2019-11-10] MEDS ORDERED: NA CHLORIDE 0.9% 500 ML ONE (19:05)
[2019-11-10 19:24] LABS: C-Reactive Protein < 2.90 mg/L (<3.00)
[2019-11-10] MEDS ORDERED: MORPHINE 4 MG/ML SYR ONE (19:55)
[2019-11-10] MEDS ORDERED: FAMOTIDINE 20 MG/2 ML VIAL IV ONE (19:55)
[2019-11-10] MEDS ORDERED: ONDANSETRON 4 MG/2 ML VIAL ONE (19:55)
--- NOTE | 2019-11-10 20:27 | RAD REPORT ---
EXAM DESCRIPTION: CT - Chest For Pe Angio - 11/10/2019 8:15 pm CLINICAL HISTORY: Shortness breath COMPARISON: July 1019 TECHNIQUE: Dynamically enhanced axial 3 mm thick images of the chest were obtained during administra tion of <100> mL Isovue 370 IV contrast. Coronal and oblique reconstruction images were generated and reviewed. Exam utilizes a protocol for optimal evaluation of pulmonary arterial tree. Maximum intensity projections 3D imaging was utilized All CT scans are performed using dose optimization technique as appropriate and may include automated exposure control or mA/KV adjustment according to patient size. FINDINGS: A pulmonary embolus is not seen. A thoracic aortic aneurysm is not noted. A pleural effusion is not seen. A pericardial effusion is not seen. Minimal patchy left lower lobe opacities IMPRESSION: Negative for a pulmonary embolism. Minimal patchy left lower lobe opacities
--- NOTE | 2019-11-10 20:44 | RAD REPORT ---
EXAM DESCRIPTION: CT - Abdomen Pelvis W Contrast - 11/10/2019 8:15 pm CLINICAL HISTORY: Abdominal pain COMPARISON: July 2019 TECHNIQUE: Computed axial tomography of the abdomen pelvis was obtained. 100 cc Isovue-300 was admin istered intravenously. Oral contrast was not requested which limits evaluation of bowel. All CT scans are performed using dose optimization technique as appropriate and may include automated exposure control or mA/KV adjustment according to patient size. FINDINGS: The liver, spleen, and pancreas appear unremarkable. Small right adrenal nodule unchanged 2017 probably an adenoma. 2 millimeter nonobstructing left renal calculus. 3.3 centimeter left renal cyst. Right kidney unremarkable There is no evidence of diverticulitis. Mild to moderate anterior subluxation of L5 on S1 IMPRESSION: No acute abnormality is displayed.
[2019-11-10] MEDS ORDERED: FENTANYL CITR 100 MCG/2 ML ONE (21:00)
--- NOTE | 2019-11-10 21:39 | EDPHYS ---
Physician Documentation [facility] Name: Blanka Parker Age: 74 yrs Sex: Female : 1945 Arrival Date: 11/10/2019 Time: 16:52 Bed 4 Private MD: ED Physician Jesse Anne HPI: 11/09 17:59 This 74 yrs old Female presents to ER via Ambulatory with complaints of Covid jmm + SOB, Chest Pain. 17:59 The patient or guardian reports cough. Onset: The symptoms/episode began/occurred jmm gradually, 1 week(s) ago. Modifying factors: The symptoms are alleviated by nothing. the symptoms are aggravated by nothing. Associated signs and symptoms: Pertinent negatives: fever. This is a 74 year old female with a history of diverticulitis, GERD, HLP, that presents to the ED with complaints of sore throat, cough, shortness of breath, diarrhea and abdominal pain beginning approx 7 days ago. Diagnosed with COVID 19 by PCP. . Historical: - Allergies: 17:10 Codeine; ll1 17:10 COLLAGENASE; ll1 17:10 Demerol; ll1 17:10 Hydromorphone; ll1 17:10 Latex, Natural Rubber; ll1 17:10 Lidocaine; ll1 17:10 PENICILLINS; ll1 17:10 Sulfa (Sulfonamide Antibiotics); ll1 17:10 VENLAFAXINE; ll1 17:10 Zanaflex; ll1 - PMHx: 17:10 degenerative joint disease; Diverticulitis; GERD; High Cholesterol; Hypertension; ll1 - PSHx: 17:10 Knee surgery; ll1 17:10 cataract repair; biopsy throat; ll1 - Immunization history:: Flu vaccine is not up to date. - Social history:: Smoking status: Patient reports the use of cigarette tobacco products, smokes one-half pack cigarettes per day, Patient/guardian denies using alcohol, street drugs. ROS: 17:59 Constitutional: Negative for fever, chills, and weight loss, Cardiovascular: Negative jmm for chest pain, palpitations, and edema, Respiratory: Negative for shortness of breath, cough, wheezing, and pleuritic chest pain. 17:59 All other systems are negative. Exam: 17:59 Constitutional: This is a well developed, well nourished patient who is awake, alert, jmm and in no acute distress. Head/Face: atraumatic. Eyes: EOMI, no conjunctival erythema appreciated ENT: Moist Mucus Membranes Neck: Trachea midline, Supple Chest/axilla: Normal chest wall appearance and motion. Cardiovascular: Regular rate and rhythm. No edema appreciated Respiratory: Normal respirations, no respiratory distress appreciated Abdomen/GI: Non distended, soft Back: Normal ROM Skin: General appearance color normal MS/ Extremity: Moves all extremities, no obvious deformities appreciated, no edema noted to the lower extremities Neuro: Awake and alert, normal gait Psych: Behavior is normal, Mood is normal, Patient is cooperative and pleasant 18:30 ECG was reviewed by the Attending Physician. [facility] Vital Signs: 17:06 BP 151 / 75; Pulse 85; Resp 18; Temp 98.7; Pulse Ox 96% ; Weight 83.91 kg; Height 5 ft. ll1 2 in. (157.48 cm); Pain 5/10; 18:35 BP 137 / 60; Pulse 70 MON; Resp 16; Pulse Ox 98% on R/A; sv 20:00 BP 155 / 74; Pulse 67; Resp 18; Pulse Ox 100% on R/A; wh 21:15 BP 116 / 85; Pulse 69; Resp 18; Pulse Ox 97% on R/A; wh 17:06 Body Mass Index 33.84 (83.91 kg, 157.48 cm) ll1 18:35 Sinus Rhythm sv MDM: 17:59 Patient medically screened. [facility] 21:36 Data reviewed: vital signs, nurses notes. Counseling: I had a detailed discussion with [facility] the patient and/or guardian regarding: the historical points, exam findings, and any diagnostic results supporting the discharge/admit diagnosis, lab results, radiology results, the need for outpatient follow up, to return to the emergency department if symptoms worsen or persist or if there are any questions or concerns that arise at home. ED course: Patient is alert and non toxic in appearance in the ED. NO signs of resp distress. Pneumonia on CT, finished course of azithromycin this past Friday. Will initiate a different abx. Advised to follow up with pcp and otherwise given strict return precautions. Patient understood and agrees with the plan of care. . 11/09 17:59 Order name: Basic Metabolic Panel; Complete Time: 19:40 [facility] 11/09 17:59 Order name: CBC with Diff; Complete Time: 18:47 [facility] 11/09 17:59 Order name: LFT's; Complete Time: 19:40 [facility] 11/09 17:59 Order name: Magnesium; Complete Time: 19:40 [facility] 11/09 17:59 Order name: NT PRO-BNP; Complete Time: 19:40 [facility] 11/09 17:59 Order name: PT-INR; Complete Time: 18:47 [facility] 11/09 17:59 Order name: Troponin (emerg Dept Use Only); Complete Time: 19:40 [facility] 11/09 17:59 Order name: XRAY Chest (1 view); Complete Time: 18:58 [facility] 11/09 17:59 Order name: Procalcitonin; Complete Time: 20:03 [facility] 11/09 17:59 Order name: Lactate; Complete Time: 18:58 [facility] 11/09 17:59 Order name: Blood Culture Adult (2) [facility] 11/09 17:59 Order name: CRP; Complete Time: 19:40 [facility] 11/09 19:42 Order name: CT Chest For PE Angio; Complete Time: 20:29 [facility] 11/09 19:42 Order name: CT Abd/Pelvis - IV Contrast Only; Complete Time: 20:47 [facility] 11/09 17:59 Order name: EKG; Complete Time: 18:00 [facility] 11/09 17:59 Order name: Cardiac monitoring; Complete Time: 18:30 [facility] 11/09 17:59 Order name: EKG - Nurse/Tech; Complete Time: 18:30 [facility] 11/09 17:59 Order name: IV Saline Lock; Complete Time: 18:30 [facility] 11/09 17:59 Order name: Labs collected and sent; Complete Time: 18:30 [facility] 11/09 17:59 Order name: O2 Per Protocol; Complete Time: 18:30 [facility] 11/09 17:59 Order name: O2 Sat Monitoring; Complete Time: 18:30 jmm EC:30 Rate is 64 beats/min. Rhythm is regular. QRS [place] is Normal. [place] interval is normal. QRS jmm interval is normal. QT interval is normal. No Q waves. T waves are Normal. No ST changes noted. Reviewed by me. Administered Medications: 19:18 Drug: NS 0.9% 500 ml Route: IV; Rate: bolus; Site: left antecubital; 22:05 Follow up: Response: No adverse reaction; IV Status: Completed infusion 19:54 Drug: Pepcid 20 mg Route: IVP; Site: left antecubital; 20:39 Follow up: Response: No adverse reaction wh 19:56 Drug: morphine 4 mg {Note: RASS 0.} Route: IVP; Site: left antecubital; 20:38 Follow up: Response: No adverse reaction 20:38 Follow up: Response: No adverse reaction; Pain is decreased; RASS: Alert and Calm (0) 19:56 Drug: Zofran (Ondansetron) 4 mg Route: IVP; Site: left antecubital; 20:38 Follow up: Response: No adverse reaction; Nausea is decreased 20:44 CANCELLED (Physician Discretion): GI Cocktail without - (Maalox Suspension 30 wh ml, Lidocaine Liquid 2 % 15 ml) PO once 20:54 Drug: fentaNYL (PF) 25 mcg {Note: RASS 0.} Route: IVP; Site: left antecubital; 21:50 Follow up: Response: No adverse reaction; Pain is decreased mt2 Disposition: 11/10 17:08 Co-signature as Attending Physician, Jesse Anne MD I agree with the assessment and kdr plan of care. Disposition: 11/10/19 21:38 Discharged to Home. Impression: Pneumonia, Unspecified abdominal pain. - Condition is Stable. - Discharge Instructions: Abdominal Pain, Adult, Community-Acquired Pneumonia, Adult. - Prescriptions for cefdinir 300 mg Oral capsule - take 1 capsule by ORAL route every 12 hours for 10 days; 20 capsule. Bentyl 20 mg Oral Tablet - take 1 tablet by ORAL route every 6 hours As needed; 40 tablet. - Medication Reconciliation Form, Thank You Letter, Antibiotic Education, Prescription Opioid Use form. - Follow up: Private Physician; When: 2 - 3 days; Reason: Recheck today's complaints, Continuance of care, Re-evaluation by your physician. Signatures: Dispatcher [employer] EDJesse Antonio MD MD kdr Mickail, Joel, PA PA jm Dom Osuna Funmilayo Mehta RN RN ll1 Fidelia Valenzuela RN mt2 Corrections: (The following items were deleted from the chart) 11/09 20:44 20:39 GI Cocktail without - (Maalox 30 ml, Lidocaine 15 ml) PO once ordered. [facility] 22:05 21:38 11/10/2019 21:38 Discharged to Home. Impression: Pneumonia; Unspecified abdominal wh pain. Condition is Stable. Forms are Medication Reconciliation Form, Thank You Letter, Antibiotic Education, Prescription Opioid Use. Follow up: Private Physician; When: 2 - 3 days; Reason: Recheck today's complaints, Continuance of care, Re-evaluation by your physician. dean
--- NOTE | 2019-11-10 21:39 | ER ---
Nurse's Notes [facility] Name: Blanka Parker Age: 74 yrs Sex: Female : 1945 Arrival Date: 11/10/2019 Time: 16:52 Bed 4 Private MD: Diagnosis: Pneumonia;Unspecified abdominal pain Presentation: 11/09 17:06 Chief complaint: Patient states: Had covid positive result [address] Skinner ll1 office. States she was getting better. But yesterday, eyes burning, throat pain, cough with sharp CP started up again. No fever. Coronavirus screen: Client denies travel out of the [place] in the last 14 days. cough unrelated to allergies, diarrhea, fatigue, Client presents with at least one sign or symptom that may indicate coronavirus-19. Standard/surgical mask placed on the client. Client reports previous positive COVID test result. Ebola Screen: Patient denies travel to an Ebola-affected area in the 21 days before illness onset. Initial Sepsis Screen: Does the patient meet any 2 criteria? No. Patient's initial sepsis screen is negative. Risk Assessment: Do you want to hurt yourself or someone else? Patient reports no desire to harm self or others. Onset of symptoms was October 18, 2019. 17:06 Method Of Arrival: Ambulatory ll1 17:06 Acuity: PETEY 3 ll1 18:05 Initial Sepsis Screen: Does the patient have a suspected source of infection? No. sv Patient's initial sepsis screen is negative. Historical: - Allergies: 17:10 Codeine; ll1 17:10 COLLAGENASE; ll1 17:10 Demerol; ll1 17:10 Hydromorphone; ll1 17:10 Latex, Natural Rubber; ll1 17:10 Lidocaine; ll1 17:10 PENICILLINS; ll1 17:10 Sulfa (Sulfonamide Antibiotics); ll1 17:10 VENLAFAXINE; ll1 17:10 Zanaflex; ll1 - PMHx: 17:10 degenerative joint disease; Diverticulitis; GERD; High Cholesterol; Hypertension; ll1 - PSHx: 17:10 Knee surgery; ll1 17:10 cataract repair; biopsy throat; ll1 - Immunization history:: Flu vaccine is not up to date. - Social history:: Smoking status: Patient reports the use of cigarette tobacco products, smokes one-half pack cigarettes per day, Patient/guardian denies using alcohol, street drugs. Screenin:05 Abuse screen: Denies threats or abuse. Denies injuries from another. Nutritional sv screening: No deficits noted. Tuberculosis screening: No symptoms or risk factors identified. Fall Risk None identified. Assessment: 18:05 General: Appears in no apparent distress. comfortable, well groomed, well developed, sv Behavior is calm, cooperative, appropriate for age. Pain: Complains of pain in throat and chest pain with coughing Pain does not radiate. Pain currently is 5 out of 10 on a pain scale. Quality of pain is described as sharp, Pain began 1 day ago. Is intermittent. Neuro: Level of Consciousness is awake, alert, obeys commands, Oriented to person, place, time, situation, Moves all extremities. Full function Speech is normal. Cardiovascular: Patient's skin is warm and dry. Rhythm is sinus rhythm. Respiratory: Reports cough that is non-productive, dry, pain with cough Airway is patent Respiratory effort is even, unlabored, Respiratory pattern is regular, symmetrical. EENT: Reports pain when swallowing. Derm: Skin is pink, warm \T\ dry. Musculoskeletal: Range of motion: intact in all extremities. 18:35 Reassessment: Patient appears in no apparent distress at this time. No changes from sv previously documented assessment. Patient and/or family updated on plan of care and expected duration. Pain level reassessed. Patient is alert, oriented x 3, equal unlabored respirations, skin warm/dry/pink. 19:20 Reassessment:. General: Appears in no apparent distress. Behavior is calm, cooperative, wh appropriate for age. Pain: Complains of pain in abdomen diffusely Quality of pain is described as crampy. Neuro: Level of Consciousness is awake, alert, obeys commands, Oriented to person, place, time, situation, Appropriate for age. Cardiovascular: Heart tones S1 S2. Respiratory: Airway is patent Respiratory effort is even, unlabored, Respiratory pattern is regular, symmetrical, Breath sounds are clear bilaterally. GI: Abdomen is flat, non-distended, Bowel sounds present X 4 quads. Abd is soft and non tender X 4 quads. Reports lower abdominal pain, upper abdominal pain, bloating. : No signs and/or symptoms were reported regarding the genitourinary system. EENT: No signs and/or symptoms were reported regarding the EENT system. Derm: Skin is intact, is healthy with good turgor, Skin is pink, warm \T\ dry. normal. Derm:. Musculoskeletal: Circulation, motion, and sensation intact. 20:00 Reassessment: Patient appears in no apparent distress at this time. Patient and/or family updated on plan of care and expected duration. Pain level reassessed. Patient is alert, oriented x 3, equal unlabored respirations, skin warm/dry/pink. Notified Provider Pt C/O Pain. 21:15 Reassessment: Patient appears in no apparent distress at this time. No changes from previously documented assessment. Patient and/or family updated on plan of care and expected duration. Pain level reassessed. Patient is alert, oriented x 3, equal unlabored respirations, skin warm/dry/pink. 22:04 Reassessment: Patient states feeling better. Patient states symptoms have improved. Vital Signs: 17:06 BP 151 / 75; Pulse 85; Resp 18; Temp 98.7; Pulse Ox 96% ; Weight 83.91 kg; Height 5 ft. ll1 2 in. (157.48 cm); Pain 5/10; 18:35 BP 137 / 60; Pulse 70 MON; Resp 16; Pulse Ox 98% on R/A; sv 20:00 BP 155 / 74; Pulse 67; Resp 18; Pulse Ox 100% on R/A; wh 21:15 BP 116 / 85; Pulse 69; Resp 18; Pulse Ox 97% on R/A; wh 17:06 Body Mass Index 33.84 (83.91 kg, 157.48 cm) ll1 18:35 Sinus Rhythm ED Course: 16:52 Patient arrived in ED. ds1 17:09 Triage completed. ll1 17:11 Arm band placed on. ll1 17:58 Fernando Laboy PA is PHCP. [facility] 17:58 Jeses Anne MD is Attending Physician. [facility] 17:59 Leslie Reyes, SCOTTIE is Primary Nurse. sv 18:05 Patient has correct armband on for positive identification. Bed in low position. Call light in reach. stove fitter on. Pulse ox on. NIBP on. Door closed. Warm blanket given. Head of bed elevated. 18:05 Second set of blood cultures drawn by me. sv 18:05 Patient maintains SpO2 saturation greater than 95% on room air. sv 18:15 First set of blood cultures drawn by me. Inserted saline lock: 20 gauge in left sv forearm, using aseptic technique. Blood collected. Flushed left forearm with 5 ml normal saline. 18:30 X-ray(s) taken. sv 18:32 Nurse Practitioner and/or Physician Biomedical Photographer to see patient. sv 18:38 XRAY Chest (1 view) In Process Unspecified. EDMS 18:44 Awaiting lab results, Awaiting radiology results. sv 18:55 Awaiting lab results, Awaiting re-evaluation by ER provider. sv 19:05 Primary Nurse role handed off by Leslie Reyes RN sv 20:15 CT Chest For PE Angio In Process Unspecified. EDMS 20:15 CT Abd/Pelvis - IV Contrast Only In Process Unspecified. EDMS 21:29 Dom Osuna is Primary Nurse. wh 22:04 No provider procedures requiring assistance completed. IV discontinued, intact, wh bleeding controlled, No redness/swelling at site. Administered Medications: 19:18 Drug: NS 0.9% 500 ml Route: IV; Rate: bolus; Site: left antecubital; 22:05 Follow up: Response: No adverse reaction; IV Status: Completed infusion 19:54 Drug: Pepcid 20 mg Route: IVP; Site: left antecubital; 20:39 Follow up: Response: No adverse reaction 19:56 Drug: morphine 4 mg {Note: RASS 0.} Route: IVP; Site: left antecubital; 20:38 Follow up: Response: No adverse reaction 20:38 Follow up: Response: No adverse reaction; Pain is decreased; RASS: Alert and Calm (0) 19:56 Drug: Zofran (Ondansetron) 4 mg Route: IVP; Site: left antecubital; 20:38 Follow up: Response: No adverse reaction; Nausea is decreased 20:44 CANCELLED (Physician Discretion): GI Cocktail without - (Maalox Suspension 30 wh ml, Lidocaine Liquid 2 % 15 ml) PO once 20:54 Drug: fentaNYL (PF) 25 mcg {Note: RASS 0.} Route: IVP; Site: left antecubital; 21:50 Follow up: Response: No adverse reaction; Pain is decreased mt2 Outcome: 21:38 Discharge ordered by MD. moran 22:04 Discharged to home via wheelchair, with family. 22:04 Condition: stable 22:04 Discharge instructions given to patient, Instructed on discharge instructions, follow up and referral plans. medication usage, POC Demonstrated understanding of instructions, follow-up care, medications, POC Prescriptions given X 2. 22:05 Patient left the ED. Signatures: Dispatcher [employer] Leslie Arroyo RN RN Fernando Leonard PA PA jmm San[place], Demi ds1 Dom Osuna Funmilayo Mehta RN RN ll1 Fidelia Valenzuela RN RN mt2 Corrections: (The following items were deleted from the chart) 17:11 17:11 Arm band placed on Patient placed ll1 ll1
--- NOTE | 2019-11-11 08:17 | EKG ---
Test Date: 2019-11-10 Test Time: 18:25:12 Lot Porter: ANUJA MEASUREMENT RESULTS: Intervals: Rate: 64 IL: 200 QRSD: 68 QT: 424 QTc: 437 [place]: P: 92 IL: 200 QRS: 5 T: 54 INTERPRETIVE STATEMENTS: Normal sinus rhythm Normal ECG Compared to ECG 11/03/2018 10:24:19 No significant changes Electronically Signed On 11-11-19 08:16:13 CDT by Anupam Perry
[2019-11-12 23:37] VITALS: TEMP 98.7
[2019-11-12 23:41] VITALS: BP 116/85; O2SAT 97
== END 2019-11-10 22:05 | disposition home or self-care (01) ==
LOC: ER 16:52
DX: U07.1 COVID-19 (principal); J12.89 Other viral pneumonia; R10.9 Unspecified abdominal pain; Z88.6 Allergy status to analgesic agent; Z91.040 Latex allergy status; Z88.0 Allergy status to penicillin; Z88.2 Allergy status to sulfonamides; Z88.8 Allergy status to other drugs, medicaments and biological substances; F17.210 Nicotine dependence, cigarettes, uncomplicated
CPT/HCPCS: 96361; 93005; 87040 ×2; 85025; 80048; 36415; 83735; 85610; 80076; 83605; 84484; 84145; 83880; 86140; 71275; 74177; 71045; 96375; 96374; 99285; Q9967; J3010; J7040; J2405

== ENCOUNTER 2020-02-11 07:51 | Day surgery (SDC) | payer OTHER ==
--- OUTSIDE RECORDS SUMMARY | 2020-02-11 07:56 | XMS REPORT | Continuity of Care Document ---
:1945 Author Organization [employer] Care Team Providers Name Role Phone [employer] Unavailable Un available Problems Problem Status Onset [...] Neuro Bitartrate 5 MG Refill(s) Oral Tablet [Sidell 5/325] Omeprazole PO, Daily, Active Mischer 0 [...] Date Comments Source BMI Calculated 35.39 03/12/2017 [facility] Weight 89.176 03/12/2017 [facility] Height 158.75 cm 03/12/2017 [facility] Temperature Oral (F) 97.8 F 03/12/2017 [facility] Heart Rate 76 03/12/2017 [facility] Systolic (mm Hg) 164 03/12/2017 [facility] [place] Diastolic (mm Hg) 83 03/12/2017 [facility] [place] [facility] u[facility] Encounters Location Location Encounter Encounter Reason Attending ADM [place] Source Details Type Number For Provider Date Date Visit [facility] Phone [id number] 03/11 03/13 [facility] [id number] MORRIS GALLEGOS 03/12 [facility] [id number] Morris Gallegos 03/12 03/13 [facility] /2017 [facility] Procedures Procedure Code Date Perfomer Comments Source Bladder operation [id number] [facility] [facility] Hysterectomy [id number] [facility] [facility] Operation [id number] [facility] Assessment and Plan No Data Provided for This Section Plan of Care No Data Provided for This Section Social History Social History Date Source Social History TypeResponse 03/12/2017 [facility] [place] [facility] Smoking Status Current every day smoker; Type: Cigarett es; Lives with someone who smokes; Cigarette Smoking Last 365 Days Yes; Reg Smoking Cessation Counseling No Family History No Data Provided for This Section Advance Directives No Data Provided for This Section Functional Status No Data Provided for This Section
--- OUTSIDE RECORDS SUMMARY | 2020-02-11 07:56 | XMS REPORT | Continuity of Care Document ---
:1945 Author Organization [facility] t Address [address] [place] [address] Care Team Providers Name Role Phone Vega MERAZ, L Attending Clinician Lincoln CM Attending Clinician Unavailable Salome Bergman Attending Clinician Problems Condition Condition Condition Status Onset Resolution Last Treating Co mments Source Name Details Category Date Date Treatment Clinician Date Diverticul Problem Active 2017-03-15 M emoria ar [...] [facility] Demerol Adverse Active anaphylaxis [facility] codeine codeine Active Memoria l Bangs Zanaflex Zanaflex Active Memori a l Renny Demerol Demerol Active Memoria HCl HCl l Renny Latex Latex Active Memoria l Renny Social History Smoking Status Start Date Stop Date Source Social History 2017-03-12 22:12:03 [facility] Medications Ordered Filled Start Stop Current Ordering Indication Dosage Frequency Signature Comments Components Source Medication Medication Date Date Medication? Clinician (SIG) Name Name PredniSONE PredniSONE 2020- Yes Na Billy [address] [facility] 9-08 09-18 daily x 5 [facility]: 00:00 days then Memoria 00 :00 one tablet l daily x 5 Outpati days ent Clinics Ipratropium Ipratropium 2020- No Na Billy [address] [facility] [place] 10-2816 in each [facility] - 00:00: 00:00 nostril [facility] 00 :00 [facility] Baclofen Baclofen 2019- No Na Billy 1/[address] [facility] 10-10 with food [facility] - 00:00: 00:00 or milk Memoria 00 :00 [facility] Atorvastati Atorvastati Yes Na Billy [address] [facility] n Calcium n Calcium 6-09 [facility] - 00:00: Memoria 00 [facility] Citalopram Yes 40 mg = 1 [...] Klor-Con 10 Yes 10 mEq, Mem oria 1-03 PO, BID, 0 l 22:12: Refill(s) Bangs 00 Furosemide Yes 40 mg = 1 Me moria 40 MG Oral 1-03 tab, PO, l Tablet 22:12: Daily, 0 Renny 00 Refill(s) gabapentin Yes 300 mg = 3 M emoria 100 MG Oral 03 cap, PO, l Capsule 22:12: TID, 0 Renny 00 Refill(s) Acetaminoph Yes 1 tab, PO, Memoria en 325 MG / 03 Q6H, 0 l Hydrocodone 22:12: Refill(s) H ermann Bitartrate 00 5 MG Oral Tablet [[place] 5/325] Omeprazole Yes PO, Daily, M emoria 03 0 l 22:12: Refill(s) Bangs 00 Celexa Celexa Yes Na Billy [address] [facility] Baclofen Baclofen Yes Na Billy as [facility] directed [facility] Prilosec Prilosec Yes Na Billy [address] [facility] 30 minutes [facility] - before Memoria morning l meal [facility] Ambien Ambien Yes Na Billy TAKE [address] [facility] [address] TABLET BY [facility] - MOUTH Memoria EVERY DAY l AT BEDTIME [facility] ent Clinics Amlodipine- Amlodipine- Yes Na Billy [address] [facility] Olmesartan Olmesartan [place] [facility] - [facility] Vital Signs Vital Name Observation Time Observation Value Comments Source BMI Calculated 2017-03-12 22:05:00 Karishma Mei Weight 2017-03-12 22:05:00 [facility] Height 2017-03-12 22:05:00 158.75 cm [facility] Temperature Oral (F) 2017-03-12 22:05:00 97.8 F [facility] Heart Rate 2017-03-12 22:05:00 [facility] Systolic (mm Hg) 2017-03-12 22:05:00 Richy Lawson Diastolic (mm Hg) 2017-03-12 22:05:00 Mem orial Renny Procedures Procedure Date / Time Performed Performing Clinician [facility] e Bladder operation [facility] nn Hysterectomy [facility] Operation [facility] Encounters Start End Encounter Admission Attending Care Care Encounter Source Date/Time Date/Time Type Type Clinicians Facility Department ID 2020-01-14 2020-01-14 Outpatient [facility] [id number] [facility] 2019-11-30 2019-11-30 Outpatient [facility] [id number] [facility]00 [facility] l Outpati ent Clinics 2019-11-16 2019-11-16 [facility] [id number] [address] 15:00:00 15:00:00 t [employer] [facility] Medicine l Medicine Outpati ent Clinics 2019-11-05 2019-11-05 [facility] [id number] 09:21:00 09:21:00 t [employer] - Drive [facility] l Medicine Outpati ent Clinics 2019-10-29 2019-10-29 [facility] [id number] [address] 11:34:00 11:34:00 t [employer] [facility] l Medicine Outpati ent Clinics 2019-10-29 2019-10-29 [facility] [id number] [address] 10[facility]00:00 10:00:00 t [employer] [facility] Medicine Outpati ent Clinics 2019-10-28 2019-10-28 [facility] [id number] 14:09:00 14:09:00 t [employer] [facility] l Medicine Outpati ent Clinics 2019-10-11 2019-10-11 [facility] [id number] 15:20:00 15:20:00 t [employer] [facility] l Medicine Outpati ent Clinics 2019-10-07 2019-10-07 [facility] [id number] 10:56:00 10:56:00 [facility] [employer] s - Road [facility] l Medicine Outpati ent Clinics 2019-10-07 2019-10-07 [facility] [id number] 10:00:00 10:00:00 t [employer] [facility] l Medicine Outpati ent Clinics 2019-10-06 2019-10-06 [facility] [id number] 15:33:00 15:33:00 t [employer] [facility] Medicine Outpati ent Clinics 2019-10-06 2019-10-06 [facility] [id number] 13:46:00 13:46:00 t [place] [employer] [facility] Medicine Outpati ent Clinics 2019-09-30 2019-09-30 [facility] [id number] 10:09:00 10:09:00 t [place] [employer] [facility] Medicine Outpati ent Clinics 2019-08-29 2019-08-29 [facility] [id number] 03:04:00 03:04:00 t [place] [employer] [facility] Medicine Outpati ent Clinics 2019-08-26 2019-08-26 [facility] [id number] 02:31:00 02:31:00 t [place] [employer] [facility] Medicine Outpati ent Clinics 2019-08-16 2019-08-16 [facility] [id number] 08:05:00 08:05:00 t [place] [employer] [facility] Medicine Outpati ent Clinics 2019-08-13 2019-08-13 [facility] [id number] 13:00:00 13:00:00 t [place] [employer] [facility] Medicine Outpati ent Clinics 2019-08-13 2019-08-13 [facility] [id number] 13:00:00 13:00:00 t [place] [employer] [facility] Medicine Outpati ent Clinics 2019-06-10 2019-06-[address] [facility] [id number] 07:53:05 08:11:21 [facility] [id number] Surgical [id number] Specialti [id number] es [address] [place] 2019-06-10 2019-06-[address] [facility] [id number] 00:00:00 00:00:00 [facility] [id number] Surgical [id number] Specialti [id number] es 198 [place] 2017-03-12 2017-03-12 Outpatient Morris Bergman [facility] [id number] 07:45:00 23:59:59 Salome Storey 2017-03-11 2017-03-12 Outpatient [facility] [id number] 09:25:00 23:59:59 04 Results Test Description Test Time Test Comments Results Result Sourc e Comments CHEST 2 VIEWS 2018-12-08 10:09:00 [place] [address] Patient Name: YANA KURTZ MR #: [id number] : 1945 Age/Sex: 73/F Req #: [id number] Adm Physician: Ordered by: SILVIA CM MD Report #: [id number] Location: OR Room/Bed: Procedure: [id number] DX/CHEST 2 VIEWS Exam Date: 12/08/18 Exam Time: 0950 REPORT STATUS: Signed TECHNIQUE: Frontal and lateral views of the chest. INDICATION: PRE-OP [facility] [id number] 0950. COMPARISON: None. FINDINGS: LINES/TUBES: None. LUNGS: [...]
--- OUTSIDE RECORDS SUMMARY | 2020-02-11 07:56 | XMS REPORT ---
:1945 Author Organization [employer] Care Team Providers Name Role Phone Billy, Na Provider Role Unavailable Allergies No Known Allergies Problems Problem Type Condition Code Onset Dates Condition Statu s Assessment Abdominal cramps R10.9 Active Assessment Renal cyst, left N28.1 Active Assessment Calculus of left kidney N20.0 Acti ve Assessment Adrenal nodule E27.8 Active Problem HTN (hypertension) I10 Active Assessment Cigarette nicotine dependence F17.210 Active without complication Problem Diverticulitis K57.92 Active Assessment Localized enlarged lymph nodes R59.0 Active Problem Osteoporosis M81.0 Active Problem Asthma J45.909 Active Problem Vitamin D deficiency E55.9 Active Problem Anxiety with depression F41.8 Acti ve Problem Cigarette nicotine dependence F17.210 Active without complication Assessment Community acquired pneumonia, J18.9 Active unspecified laterality Problem Calculus of left kidney N20.0 Acti ve Assessment History of 2019 novel coronavirus Z86.19 Active disease (COVID-19) Problem Allergic rhinitis J30.9 Active Problem COPD (chronic obstructive pulmonary J44.9 Active disease) Problem 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 Problem 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 Problem High cholesterol E78.00 Active Problem Sinus problem J34.9 Active Problem Primary insomnia F51.01 Active Problem Goiter E04.9 Active Problem Reflux K21.9 Active Problem Hyperlipemia E78.5 Active Problem Cancer C80.1 Active Problem Irritable bowel K58.9 Active Medications Medication Code Code Instructions Start End Status Dosage System Date Date Baclofen [facility] [address]-71 0.05 MG/ML Active as Intrathecal directed Ambien ND 59612431251 10 MG Orally Active 1 table t Once a day at bedtime as needed Atorvastatin ND 69190328472 20 MG Orally August 16, Active 1 tablet Calcium Once a day 2019 Celexa ND 92818617083 20 MG Orally Active 1 table t Once a day Baclofen ND 54251211479 10 MG Orally Oct 10, Jan 08, Active 1/2 ta blet two times a day 2019 2019 with cori d prn back pain or milk spasms Ipratropium [facility] 36036289654 0.06 % Nasally Oct 28Apr 25, Active 2 sprays [place] every 8 hrs 2019 2020 in each nostril Amlodipine-Olme [facility] 90050668509 10-20 MG Orally Acti ve 1 tablet sartan Once a day Prilosec [facility] [address]-17 40 MG Orally Active 1 ca psule Once a day 30 minutes before morning meal Ambien [facility] 25310802490 10 MG Active TAKE 1 TABLET BY MOUTH EVERY DAY AT BEDTIME NEEDED PredniSONE [facility] 65007968347 10 MG Orally Nov 15, Nov Active 2 t ablet Once a day 2019, daily x 5 2019 days then one tablet daily x 5 days Results No Known Results Summary Purpose [employer] Submission
[2020-02-11 08:31] LABS: Basophils % 1.2 % (0-1.3); Hematocrit 32.6 % (36.0-45.0); MPV 9.2 fL (7.6-11.3); RBC Red Blood Cell Count 3.91 M/uL (3.86-4.86)
[2020-02-11 08:47] LABS: Potassium 3.6 mmol/L (3.5-5.1)
[2020-02-11] MEDS ORDERED: Ringers Lactate 1,000 ML IV ONE (09:13)
[2020-02-11] MEDS: CEFOXITIN/SWI 1gm 1 GM/10 ML SYR ONE ×2 (10:56→12:10)
[2020-02-11] MEDS ORDERED: FENTANYL CITR 100 MCG/2 ML ONE ×2 (12:05→12:13)
[2020-02-11] MEDS ORDERED: LIDOCAINE 1% MPF 5 ML VIAL ONE (12:06)
[2020-02-11] MEDS ORDERED: propofoL 200 MG/20 ML VIAL IV ONE (12:06)
[2020-02-11] MEDS ORDERED: KETOROLAC 30 MG/ML INJ ONE (12:28)
[2020-02-11] MEDS ORDERED: dexAMETHasone 10 MG/ML VIAL ONE (12:28)
[2020-02-11] MEDS ORDERED: ONDANSETRON 4 MG/2 ML VIAL ONE (12:28)
--- NOTE | 2020-02-11 13:38 | OP ---
Date of Procedure: 02/11/2020 Surgeon: Arnav Mcintyre MD Chemistry Department Chair: None. Preoperative Diagnosis: Right perirectal abscess. Postoperative Diagnosis: Right perirectal abscess. Procedures: Exam under anesthesia, rigid proctoscopy, incision and drainage of right perirectal absc ess. Estimated Blood Loss: Minimal. Specimen: Culture and sensitivity of the pus. Finding: As above. Anesthesia: General. Complications: None. Disposition: The patient tolerated the procedure in stable condition, taken to Recovery in good gene ral condition. Description Of Procedure: The patient was brought to the OR and placed in supine position. Genera a nesthesia was begun. Patient was prepped and draped in usual sterile fashion in lithotomy position. Exam under anesthesia revealed a small opening at approximately the 11 o'clock position of the anus. This was probed. There was some pus oozing. Cultures were done. This was probed with a probe and could not identify a fistula. Proctoscopy was performed. No internal opening was identified. Then Marcaine 0.5% was infiltrated locally. 15 blade was used to make a 4 cm incision over the fluctuant part of the abscess. Subcutaneous tissue was divided. Necrotic tissue was debrided. Wound was irr igated. Bleeding was controlled with cautery and then wet-to-dry normal saline dressing change appli ed. Patient tolerated procedure in stable condition, taken to Recovery in good general condition. Discharge Note: The patient will go to day surgery and home when stable. Disposition: Home. Condition: Stable. Discharge Instructions: Resume home medications and diet. Activity as tolerated. No heavy lifting. Remove outer dressing in a.m. shower. Sitz bath prior to dressing changes. Cipro 500 mg p.o. q.12 , Flagyl 500 mg p.o. q.8. Ultracet 1 tablet p.o. q.4 p.r.n. pain. Wet-to-dry normal saline dressing changes daily. Patient has home health arranged for by my office and follow up in my office in 2 we eks. Call for appointment. KRISH/ARLIN Voice ID: [id number] Report ID: [id number]
[2020-02-11] MEDS ORDERED: TRAMADOL 37.5mg/APAP 325mg PER TAB PO ONE (14:10)
[2020-02-11 14:41] VITALS: BP 145/62; TEMP 96.5; O2SAT 96
== END 2020-02-11 14:28 | disposition home health service (06) ==
LOC: OR 07:51
PROVIDERS: ATTEND Surgery
PROC: 0DJD8ZZ Inspection of Lower Intestinal Tract, Via Natural or Artificial Opening Endoscopic (ICD-10-PCS; 2020-02-11)
PROC: 0D9P3ZZ Drainage of Rectum, Percutaneous Approach (ICD-10-PCS; principal; 2020-02-11 11:30)
DX: K61.1 Rectal abscess (principal); F17.210 Nicotine dependence, cigarettes, uncomplicated; M19.90 Unspecified osteoarthritis, unspecified site; E07.9 Disorder of thyroid, unspecified; I10 Essential (primary) hypertension; K21.9 Gastro-esophageal reflux disease without esophagitis
CPT/HCPCS: 87070; 85025; 80048; 36415; 87205 ×2; 87075; 46040; J2704; J3010; J1100; J7120; J2405

== ENCOUNTER 2020-05-30 00:01 | Emergency (ER) | payer OTHER ==
[2011-08-17 19:58] VITALS: BP 168/75
--- OUTSIDE RECORDS SUMMARY | 2020-05-30 00:03 | XMS REPORT | Continuity of Care Document ---
:1945 Author Organization [facility] t Address [address] [place] [address] [address]. [address] [place] [address] Care Team Providers Name Role Phone Vega [...] ents Source Name Type Date Date Clinician codeine codeine Active Memoria l Renny Zanaflex Zanaflex Active Memori a l Renny Demerol Demerol Active Memoria HCl HCl l [place] Latex Latex Active Memoria l Renny Zanaflex Adverse Active anaphylaxis [facility] Demerol Adverse Active anaphylaxis [facility] Social History Smoking Status Start Date Stop Date Source Social History 2017-03-12 22:12:03 [facility] Medications Ordered Filled Start Stop Current Ordering Indication Dosage Frequency Signature Comments Components Source Medication Medication Date Date Medication? Clinician (SIG) Name Name PredniSONE PredniSONE 2020- No Na Billy [address] [facility] 11-15-18 daily x 5 [facility]: 00:00 days then Memoria 00 :00 one tablet l daily x 5 Outpati days ent Clinics Ipratropium Ipratropium 2020- No Na Billy [address] [facility] [place] 10-28 in each [facility] - 00:00: 00:00 nostril Memoria 00 :00 [facility] Baclofen Baclofen 2019- No Na Billy 1/[address] [facility] [facility] 10-10 with food [facility] - 00:00: 00:00 or milk Memoria 00 :00 [facility] Atorvastati Atorvastati Yes Na Billy [address] [facility] n Calcium n Calcium 6- [facility] - 00:00: Memoria 00 [facility] Citalopram Yes 40 mg = 1 [...] 1-03 PO, BID, 0 l 22:12: Refill(s) Renny 00 Furosemide Yes 40 mg = 1 Me moria 40 MG Oral 1-03 tab, PO, l Tablet 22:12: Daily, 0 [place] 00 Refill(s) gabapentin Yes 300 mg = 3 M emoria 100 MG Oral 03-12 cap, PO, l Capsule 22:12: TID, 0 Renny 00 Refill(s) Acetaminoph Yes 1 tab, PO, Memoria en 325 MG / -03 Q6H, 0 l Hydrocodone 22:12: Refill(s) H ermann Bitartrate 00 5 MG Oral Tablet [[place] 5/325] Omeprazole Yes PO, Daily, M emoria 03 0 l 22:12: Refill(s) [place] 00 Celexa Celexa Yes Na Billy [address] [facility] Baclofen Baclofen Yes Na Billy as [facility] Prilosec Prilosec Yes Na Billy [address] [facility] 30 minutes [facility] - before Memoria morning l meal [facility] Clinics Ambien Ambien Yes Na Billy TAKE [address] [facility] TABLET BY [facility] - MOUTH Memoria EVERY DAY l AT BEDTIME [facility] NEEDED ent Clinics Amlodipine- Amlodipine- Yes Na Billy [address] [facility] Olmesartan Olmesartan [place] [facility] - Mem[facility] ent Clinics Vital Signs Vital Name Observation Time Observation Value Comments Source BMI Calculated 2017-03-12 22:05:00 Karishma Mei Weight 2017-03-12 22:05:00 [facility] Height 2017-03-12 22:05:00 158.75 cm [facility] Temperature Oral (F) 2017-03-12 22:05:00 97.8 F [facility] Heart Rate 2017-03-12 22:05:00 [facility] Systolic (mm Hg) 2017-03-12 22:05:00 Richy Lawson Diastolic (mm Hg) 2017-03-12 22:05:00 Mem orial Renny Procedures Procedure Date / Time Performed Performing Clinician [facility] e Bladder operation [facility] nn Hysterectomy [facility] Encounters Start End Encounter Admission Attending Care Care Encounter Source Date/Time Date/Time Type Type Clinicians Facility Department ID 2020-03-15 2020-03-15 Outpatient [facility] [id number] [facility] 2020-01-14 2020-01-14 [facility] [id number] [facility] 2019-11-30 2019-11-30 [facility] [id number] [facility] 2019-11-16 2019-11-16 [facility] [id number] [facility] 15:00:00 15:00:00 t [employer] [facility] Medicine Outpati ent Clinics 2019-11-05 2019-11-05 [facility] [id number] 09:21:00 09:21:00 t [employer] [facility] Medicine Outpati ent Clinics 2019-10-29 2019-10-29 [facility] [id number] 11:34:00 11:34:00 t [employer] [facility] Medicine Outpati ent Clinics 2019-10-29 2019-10-29 [facility] [id number] 10:00:00 10:00:00 t [employer] [facility] Medicine Outpati ent Clinics 2019-10-28 2019-10-28 [facility] [id number] 14:09:00 14:09:00 t [employer] [facility] Medicine Outpati ent Clinics 2019-10-11 2019-10-11 [facility] [id number] 15:20:00 15:20:00 t [employer] [facility] Medicine Outpati ent Clinics 2019-10-07 2019-10-07 [facility] [id number] 10:56:00 10:56:00 t [facility] Scan•Jour s [address] [facility] Medicine Outpati ent Clinics 2019-10-07 2019-10-07 [facility] [id number] 10:00:00 10:00:00 t [employer] [facility] Medicine Outpati ent Clinics 2019-10-06 2019-10-06 [facility] [id number] 15:33:00 15:33:00 [address] [employer] - Drive [facility] Medicine Outpati ent Clinics 2019-10-06 2019-10-06 [facility] [id number] 13:46:00 13:46:00 t [employer] s - Drive [facility] Medicine Outpati ent Clinics 2019-09-30 2019-09-30 [facility] [id number] 10:09:00 10:09:00 t [employer] s - Drive [facility] Medicine Outpati ent Clinics 2019-08-29 2019-08-29 [facility] [id number] 03:04:00 03:04:00 t [employer] s - Drive [facility] Medicine Outpati ent Clinics 2019-08-26 2019-08-26 [facility] [id number] 02:31:00 02:31:00 t [employer] s - Drive [facility] Medicine Outpati ent Clinics 2019-08-16 2019-08-16 [facility] [id number] 08:05:00 08:05:00 t [employer] s - Drive [facility] Medicine Outpati ent Clinics 2019-08-13 2019-08-13 [facility] [id number] 13:00:00 13:00:00 t [employer] [address] [facility] Medicine Outpati ent Clinics 2019-08-13 2019-08-13 [facility] [id number] 13:00:00 13:00:00 t [employer] s [employer] [facility] Medicine Outpati ent Clinics 2019-06-10 2019-06-10 Office ALEJANDRO Ferrari [id number] 07:53:05 08:11:21 Visit [facility] [id number] Surgical [id number] [facility] [id number] [address] 2019-06-10 2019-06-10 Telephone ALEJANDRO Ferrari [id number] 00:00:00 00:00:00 [facility] [id number] Surgical [id number] [facility] [id number] 198 [place] 2017-03-12 2017-03-12 [facility] [id number] 07:45:00 23:59:59 Hwan 2017-03-11 2017-03-12 [id number] 09:25:00 23:59:59 04 Results Test Description Test Time Test Comments Results Result Sourc e Comments CHEST 2 VIEWS 2018-12-08 10:09:00 [place] [address] Patient Name: YANA KURTZ MR #: [id number] : 1945 Age/Sex: 73/F Req #: [id number] Adm Physician: Ordered by: SILVIA CM MD Report #: [id number] Location: OR Room/Bed: Procedure: [id number] DX/CHEST 2 VIEWS Exam Date: 12/08/18 Exam Time: 949 REPORT STATUS: Signed TECHNIQUE: Frontal and lateral views of the chest. INDICATION: PRE-OP [facility] [id number]. COMPARISON: None. FINDINGS: LINES/TUBES: None. LUNGS: There [...]
--- NOTE | 2020-05-30 01:19 | ER ---
Nurse's Notes [facility] Name: Blanka Parker Age: 74 yrs Sex: Female : 1945 Arrival Date: 05/30/2020 Time: 00:02 Bed Waiting Private MD: Diagnosis: Presentation: 05/30 00:06 Acuity: PETEY 4 sg ED Course: 00:02 Patient arrived in ED. cl3 00:06 Triage completed. sg 00:06 Arm band placed on. sg Administered Medications: No medications were administered Outcome: 01:19 Patient left the ED. em Signatures: Augusto Ford RN RN sg Paco Romero RN RN em Davey Mehta cl3
[2020-05-31] MEDS ORDERED: LIDOCAINE 1% W/EPI 1:100,000 MDV 50 ML VIAL ONE (00:01)
== END 2020-05-30 01:19 | disposition left against medical advice (07) ==
LOC: ER 00:01
DX: Z53.21 Procedure and treatment not carried out due to patient leaving prior to being seen by health care provider (principal)
CPT/HCPCS: 99281

== ENCOUNTER 2020-06-09 13:40 | Emergency (ER) | payer OTHER ==
--- OUTSIDE RECORDS SUMMARY | 2020-06-09 13:43 | XMS REPORT | Continuity of Care Document ---
:1945 Author Organization [facility] t Address [address] [place] [address] Dr. Pritchard [address] [place] [address] Care Team Providers Name Role Phone Vega [...] l Renny Latex Latex Active Memoria [facility] [place] Zanaflex Adverse Active anaphylaxis [facility] Demerol Adverse Active anaphylaxis [facility] Social History Smoking Status Start Date Stop Date Source Social History 2017-03-12 22:12:03 [facility] Medications Ordered Filled Start Stop Current Ordering [...] No Na Billy [address] [facility] [place] [place] 10-28 in each [facility] 00:[facility]: 00:00 nostril Memoria 00 :00 [facility] Baclofen Baclofen 2019- No Na Billy 1/[address] [facility] 10-10 with food [facility] - 00:00: 00:00 or milk Memoria 00 :00 [facility] Atorvastati Atorvastati Yes Na Billy [address] [facility] n Calcium n Calcium 6- [facility] - 00:[facility]: Memoria 00 [facility] Citalopram Yes 40 mg = 1 [...] ermann Bitartrate 00 5 MG Oral Tablet [[place] 5/325] Omeprazole Yes PO, Daily, M emoria 03 0 l 22:12: Refill(s) [place] 00 Celexa Celexa Yes Na Billy [address] [facility] Baclofen Baclofen Yes Na Billy as [facility] directed [facility] Prilosec Prilosec Yes Na Billy [address] [facility] 30 minutes [facility] - before [facility]oria morning l meal [facility] Ambien Ambien Yes Na Billy TAKE [address] [facility] TABLET BY [facility] - MOUTH Memoria EVERY DAY l AT BEDTIME [facility] Amlodipine- Amlodipine- Yes Na Billy [address] Olmesartan Olmesartan [place] [facility] Vital Signs Vital Name Observation Time Observation Value Comments Source BMI Calculated 2017-03-12 22:05:00 Karishma Mei Weight 2017-03-12 22:05:00 [facility] Height 2017-03-12 22:05:00 158.75 cm [facility] Temperature Oral (F) 2017-03-12 22:05:00 97.8 F [facility] Heart Rate 2017-03-12 22:05:00 [facility] Systolic (mm Hg) 2017-03-12 22:05:00 Richy Lawson Diastolic (mm Hg) 2017-03-12 22:05:00 Mem orial Renny Procedures Procedure Date / Time Performed Performing Clinician [facility] e Bladder operation [facility] nn Hysterectomy [facility] Operation [facility] Encounters Start End Encounter Admission Attending Care Care Encounter Source Date/Time Date/Time Type Type Clinicians Facility Department ID 2020-03-15 2020-03-15 Outpatient [facility] [id number] [facility] 2020-01-14 2020-01-14 [facility] [id number] [facility] 2019-11-30 2019-11-30 [facility] [id number] [facility] 2019-11-16 2019-11-16 [facility] [id number] [facility] 15:00:00 15:00:00 t [facility] - [employer] [facility] 2019-11-05 2019-11-05 [facility] [id number] [address] 09:21:00 09:21:00 t [facility] [employer] [facility] 2019-10-29 2019-10-29 [facility] [id number] [address] 11:34:00 11:34:00 t [facility] [employer] [facility] 2019-10-29 2019-10-29 [facility] [id number] 10:00:00 10:00:00 t [facility] [employer] [facility] 2019-10-28 2019-10-28 [facility] [id number] [address] 14:09:00 14:09:00 t [facility] [employer] [facility] 2019-10-11 2019-10-11 [facility] [id number] 15:20:00 15:20:00 t [facility]ergy [facility] [employer] [facility] 2019-10-07 2019-10-07 [facility] [id number] 10:56:00 10:56:00 t [facility] TRADE TO REBATE s [employer] [facility] 2019-10-07 2019-10-07 [facility] [id number] 10:00:00 10:00:00 t [employer]ergy [employer] [facility] 2019-10-06 2019-10-06 [facility] [id number] 15:33:00 15:33:00 t [place] [employer] s - Drive [facility] 2019-10-06 2019-10-06 [facility] [id number] 13:46:00 13:46:00 t [place] [employer]Keys s - Drive [facility] 2019-09-30 2019-09-30 [facility] [id number] 10:09:00 10:09:00 t [place] [employer] s - Drive [facility] 2019-08-29 2019-08-29 [facility] [id number] 03:04:00 03:04:00 t [place] [employer] s - Drive [facility] 2019-08-26 2019-08-26 [facility] [id number] 02:31:00 02:31:00 t [place] [employer] s - Drive [facility] 2019-08-16 2019-08-16 [facility] [id number] 08:05:00 08:05:00 t [place] [employer] s - Drive [facility] 2019-08-13 2019-08-13 [facility] [id number] 13:00:00 13:00:00 t [place] [employer] [address] [facility] 2019-08-13 2019-08-13 [facility] [id number] 13:00:00 13:00:00 t [place] [employer] [facility] 2019-06-10 2019-06-10 Office ALEJANDRO Ferrari [id number] 07:53:05 08:11:21 Visit [facility] [id number] Surgical [id number] [facility] [id number] [address] 2019-06-10 2019-06-10 Telephone ALEJANDRO Ferrari [id number] 00:00:00 00:00:00 [facility] [id number] Surgical [id number] [facility] [id number] 198 [address] 2017-03-12 2017-03-12 [facility] [id number] 07:45:00 23:59:59 Hwan 2017-03-11 2017-03-12 [id number] 09:25:00 23:59:59 04 Results Test Description Test Time Test Comments Results Result Sourc e Comments CHEST 2 VIEWS 2018-12-08 10:09:00 [place] [address] Patient Name: YANA KURTZ MR #: [id number] : 1945 Age/Sex: 73/F Req #: [id number] Adm Physician: Ordered by: SILVIA CM MD Report #: [id number] Location: OR Room/Bed: Procedure: [id number] DX/CHEST 2 VIEWS Exam Date: 12/08/18 Exam [...]
[2020-06-09 16:31] LABS: Urine Blood 2+ (Negative); Urine Glucose Negative (Negative); Urine Protein Negative (Negative); Urine Specific Gravity 1.025 (1.005-1.030); Urine pH 5.5 (5.0-7.0)
[2020-06-09 16:36] LABS: Absolute Lymphocytes (CBC) 1.6 K/uL (0.7-4.9); Basophils % 0.6 % (0-1.3); Hematocrit 30.8 % (36.0-45.0); MPV 9.3 fL (7.6-11.3); RBC Red Blood Cell Count 3.62 M/uL (3.86-4.86)
[2020-06-09] MEDS ORDERED: MORPHINE 2 MG/ML SYR ONE (16:37)
[2020-06-09] MEDS ORDERED: ONDANSETRON 4 MG/2 ML VIAL ONE (16:37)
[2020-06-09 16:43] LABS: Protime INR 1.17
[2020-06-09 16:54] LABS: Albumin 3.3 g/dL (3.4-5.0); Bilirubin Direct 0.1 mg/dL (0-0.2); Bilirubin Total 0.3 mg/dL (0.2-1.0); Magnesium 1.8 mg/dL (1.8-2.4); Potassium 3.9 mmol/L (3.5-5.1); Protein, Total 6.9 g/dL (6.4-8.2)
[2020-06-09 16:58] LABS: Urine Bacteria 20-50 /HPF (<20)
--- NOTE | 2020-06-09 17:25 | RAD REPORT ---
EXAM DESCRIPTION: CT - Abdomen Pelvis W Contrast - 06/09/2020 5:11 pm CLINICAL HISTORY: Abdominal pain COMPARISON: 2019 TECHNIQUE: Computed axial tomography of the abdomen pelvis was obtained. 100 cc Isovue-300 was admin istered intravenously. Oral contrast was not requested which limits evaluation of bowel. All CT scans are performed using dose optimization technique as appropriate and may include automated exposure control or mA/KV adjustment according to patient size. FINDINGS: Cholecystectomy. A small right adrenal adenoma unchanged. Tiny nonobstructing left renal calculi. Left renal cysts that significant change. The liver, spleen, pancreas, left adrenal and right kidney unremarkable Small duodenal diverticulum There is no evidence of diverticulitis. Hysterectomy. 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
--- NOTE | 2020-06-09 17:30 | RAD REPORT ---
EXAM DESCRIPTION: CTFacial Bones W Con Mpr06/09/2020 5:11 pm CLINICAL HISTORY: Right facial pain and swelling COMPARISON: None. TECHNIQUE: Computed axial tomography of the face obtained with coronal and sagittal reconstruction. 50 cc Isovue-[address] scans are performed using dose optimization technique as appropriate and may include automated exposure control or mA/KV adjustment according to patient size. FINDINGS: No abscess visualized. The parotid and submandibular glands appear unremarkable. The parapharyngeal fat is clear. The globes are normal size and density. Periorbital fat is clear. Moderate opacification ethmoid sinus. Mild chronic sphenoid sinusitis IMPRESSION: Moderate opacification of the ethmoid sinus indicative of sinusitis .
--- NOTE | 2020-06-09 17:31 | RAD REPORT ---
EXAM DESCRIPTION: Jessica Single View06/09/2020 4:19 pm CLINICAL HISTORY: Cough COMPARISON: 2019 FINDINGS: The lungs appear clear of acute infiltrate. The heart is mildly enlarged IMPRESSION: No acute abnormalities displayed
[2020-06-09 17:56] LABS: SARS-COV-2 RT PCR NEGATIVE (NEGATIVE)
--- NOTE | 2020-06-09 18:47 | ER ---
Nurse's Notes [facility] Name: Blanka Parker Age: 74 yrs Sex: Female : 1945 Arrival Date: 06/09/2020 Time: 13:43 Bed 15 Private MD: Diagnosis: Acute ethmoidal sinusitis Presentation: 06/09 13:52 Chief complaint:. Chief complaint: Patient states: Had a sinus infection from my gum ca1 that goes all the way to my sinuses. Been taken Clindamycin for 1.5 weeks, and has been on another 1 prior to that. But am still not feeling better, am still in pain, having chills now and I get stomach upset from the antibiotics. Coronavirus screen: Client denies travel out of the [place] in the last 14 days. chills, Client presents with at least one sign or symptom that may indicate coronavirus-19. Standard/surgical mask placed on the client. Provider contacted for isolation considerations. Ebola Screen: Patient negative for fever greater than or equal to 101.5 degrees Fahrenheit, and additional compatible Ebola Virus Disease symptoms Patient denies exposure to infectious person. Patient denies travel to an Ebola-affected area in the 21 days before illness onset. No symptoms or risks identified at this time. Initial Sepsis Screen: Does the patient meet any 2 criteria? No. Patient's initial sepsis screen is negative. Does the patient have a suspected source of infection? No. Patient's initial sepsis screen is negative. Risk Assessment: Do you want to hurt yourself or someone else? Patient reports no desire to harm self or others. Onset of symptoms was June 09, 2020. 13:52 Method Of Arrival: Ambulatory ca1 13:52 Acuity: PETEY 3 ca1 Historical: - Allergies: 13:56 Codeine; ca1 13:56 COLLAGENASE; ca1 13:56 Demerol; ca1 13:56 Hydromorphone; ca1 13:56 Latex, Natural Rubber; ca1 13:56 Lidocaine; ca1 13:56 PENICILLINS; ca1 13:56 Sulfa (Sulfonamide Antibiotics); ca1 13:56 VENLAFAXINE; ca1 13:56 Zanaflex; ca1 - PMHx: 13:56 degenerative joint disease; Diverticulitis; GERD; High Cholesterol; Hypertension; ca1 - PSHx: 13:56 Hysterectomy; Cholecystectomy; Appendectomy; neck surgery; back surgery; ca1 - Immunization history:: Pneumococcal vaccine is not up to date, Flu vaccine is not up to date. - Social history:: Smoking status: Patient/guardian denies using tobacco, but has a distant history of tobacco abuse. Screenin:38 Abuse screen: Denies threats or abuse. Nutritional screening: No deficits noted. bw Tuberculosis screening: No symptoms or risk factors identified. Fall Risk None identified. Assessment: 16:38 Pain: Complains of pain in mouth/dental. Neuro: No deficits noted. Cardiovascular: No bw deficits noted. Respiratory: No deficits noted. GI: Reports lower abdominal pain. 17:48 Reassessment: Patient appears in no apparent distress at this time. No changes from bw previously documented assessment. Patient and/or family updated on plan of care and expected duration. Pain level reassessed. Patient is alert, oriented x 3, equal unlabored respirations, skin warm/dry/pink. 19:07 Reassessment: Patient and/or family updated on plan of care and expected duration. Pain ea level reassessed. Patient is alert, oriented x 3, equal unlabored respirations, skin warm/dry/pink. Patient states feeling better. Vital Signs: 13:52 BP 119 / 58; Pulse 80; Resp 16 S; Temp 98.9(TE); Pulse Ox 100% on R/A; Weight 81.65 kg ca1 (R); Height 5 ft. 2 in. (157.48 cm) (R); Pain 6/10; 16:38 BP 110 / 59; Pulse 68; Pulse Ox 98% on R/A; bw 13:52 Body Mass Index 32.92 (81.65 kg, 157.48 cm) ca1 ED Course: 13:43 Patient arrived in ED. ds1 13:55 Triage completed. ca1 13:56 Arm band placed on right wrist. ca1 15:15 Stevan Paiz PA is PHCP. cp 15:15 Iris Pierce MD is Attending Physician. cp 15:43 Lizeth Borja RN is Primary Nurse. bw 16:19 XRAY Chest (1 view) In Process Unspecified. EDMS 16:38 Patient has correct armband on for positive identification. Bed in low position. Call bw light in reach. Side rails up X 1. Pulse ox on. NIBP on. Warm blanket given. 16:38 No provider procedures requiring assistance completed. Inserted saline lock: 20 gauge bw in right antecubital area, using aseptic technique. 17:10 CT Facial Bones W/ Con \T\ Mpr In Process Unspecified. EDMS 17:11 CT Abd/Pelvis - IV Contrast Only In Process Unspecified. EDMS 18:46 Leslie Hathaway MD is Referral Physician. cp 19:07 IV discontinued, intact, bleeding controlled, No redness/swelling at site. Pressure ea dressing applied. Administered Medications: 16:33 Drug: morphine 2 mg Route: IVP; Site: right antecubital; bw 18:32 Follow up: Response: No adverse reaction bw 16:33 Drug: Zofran (Ondansetron) 4 mg Route: IVP; Site: right antecubital; bw 18:31 Follow up: Response: No adverse reaction bw 18:45 Drug: fentaNYL (PF) 25 mcg Route: IVP; Site: right antecubital; bw Outcome: 18:47 Discharge ordered by MD. cp 19:07 Discharged to home ambulatory. ea 19:07 Condition: stable 19:07 Discharge instructions given to patient, Instructed on discharge instructions, follow up and referral plans. medication usage, Demonstrated understanding of instructions, follow-up care, medications, Prescriptions given X 2. 19:08 Patient left the ED. ea Signatures: Dispatcher [employer] [facility] Cindi Zheng ds1 Stevan Paiz PA PA cp Antunez, Elena, RN RN ea Acob, Cheryl, RN RN ca1 Webb, Bethany, RN RN bw
--- NOTE | 2020-06-09 18:48 | EDPHYS ---
Physician Documentation [facility] Name: Blanka Parker Age: 74 yrs Sex: Female : 1945 Arrival Date: 06/09/2020 Time: 13:43 Bed 15 Private MD: ED Physician Iris Pierce HPI: 06/09 15:40 This 74 yrs old Female presents to ER via Ambulatory with complaints of cp Fever, Chills. 15:40 The patient reports fever, that was measured at 101 degrees Fahrenheit. cp 15:40 Onset: The symptoms/episode began/occurred gradually. Associated signs and symptoms: cp Pertinent positives: abdominal pain, chills, cough, diarrhea. 15:40 Patient reports she has been taking oral clindamycin for sinus infection from cp complication of dental surgery for past 1-2 weeks, but stopped taking antibiotic due to burning and upset stomach. Patient reports right side facial swelling and pain where dental surgery was performed. Historical: - Allergies: 13:56 Codeine; ca1 13:56 COLLAGENASE; ca1 13:56 Demerol; ca1 13:56 Hydromorphone; ca1 13:56 Latex, Natural Rubber; ca1 13:56 Lidocaine; ca1 13:56 PENICILLINS; ca1 13:56 Sulfa (Sulfonamide Antibiotics); ca1 13:56 VENLAFAXINE; ca1 13:56 Zanaflex; ca1 - PMHx: 13:56 degenerative joint disease; Diverticulitis; GERD; High Cholesterol; Hypertension; ca1 - PSHx: 13:56 Hysterectomy; Cholecystectomy; Appendectomy; neck surgery; back surgery; ca1 - Immunization history:: Pneumococcal vaccine is not up to date, Flu vaccine is not up to date. - Social history:: Smoking status: Patient/guardian denies using tobacco, but has a distant history of tobacco abuse. ROS: 15:45 Constitutional: Positive for chills, Negative for body aches, fever, poor PO intake. cp 15:45 Eyes: Negative for injury, pain, redness, and discharge. cp 15:45 ENT: Positive for Gum pain sinus congestion, sinus pain, Negative for drainage from ear(s), ear pain, difficulty swallowing, difficulty handling secretions. 15:45 Cardiovascular: Negative for chest pain, palpitations. 15:45 Respiratory: Positive for cough, Negative for shortness of breath, wheezing. 15:45 Abdomen/GI: Positive for abdominal pain, diarrhea, Negative for constipation, black/tarry stool, rectal bleeding. 15:45 Skin: Negative for rash. 15:45 Neuro: Negative for altered mental status, headache, weakness. 15:45 All other systems are negative. Exam: 15:50 Constitutional: The patient appears in no acute distress, alert, awake, cp non-diaphoretic, non-toxic, well developed, well nourished. 15:50 Head/face: Noted is swelling, that is mild, of the right cheek, tenderness, that is cp moderate, of the right cheek. 15:50 Eyes: Periorbital structures: appear normal, Pupils: equal, round, and reactive to light and accomodation, Extraocular movements: intact throughout, Conjunctiva: normal, no exudate, no injection, Sclera: no appreciated abnormality, Lids and lashes: appear normal, bilaterally. 15:50 ENT: External ear(s): are unremarkable, Ear canal(s): are normal, clear, TM's: dullness, bilaterally, Nose: is normal, Mouth: Lips: moist, Oral mucosa: pink and intact, moist, Gums: pain and tenderness noted to right upper gum line with no erythema, minimal swelling noted, Posterior pharynx: Airway: no evidence of obstruction, patent. 15:50 Neck: ROM/movement: is normal, is supple, without pain, no range of motions limitations, no meningismus, Lymph nodes: no appreciated lymphadenopathy. 15:50 Chest/axilla: Inspection: normal, Palpation: is normal, no crepitus, no tenderness. 15:50 Cardiovascular: Rate: normal, Rhythm: regular. 15:50 Respiratory: the patient does not display signs of respiratory distress, Respirations: normal, no use of accessory muscles, no retractions, labored breathing, is not present, Breath sounds: are clear throughout, no decreased breath sounds, no stridor, no wheezing. 15:50 Abdomen/GI: Inspection: abdomen appears normal, Bowel sounds: active, all quadrants, Palpation: abdomen is soft and non-tender, in all quadrants. 15:50 Back: pain, is absent, ROM is normal. 15:50 Skin: cellulitis, is not appreciated, no rash present. 15:50 Neuro: Orientation: to person, place \T\ time. Mentation: is normal, Motor: moves all fours, strength is normal. Vital Signs: 13:52 BP 119 / 58; Pulse 80; Resp 16 S; Temp 98.9(TE); Pulse Ox 100% on R/A; Weight 81.65 kg ca1 (R); Height 5 ft. 2 in. (157.48 cm) (R); Pain 6/10; 16:38 BP 110 / 59; Pulse 68; Pulse Ox 98% on R/A; bw 13:52 Body Mass Index 32.92 (81.65 kg, 157.48 cm) ca1 MDM: 15:17 Patient medically screened. cp 16:00 Differential diagnosis: pneumonia gastroenteritis, sepsis, dental abscess, sinusitis. cp 18:46 Data reviewed: vital signs, nurses notes, lab test result(s), radiologic studies, plain cp films. 18:46 Counseling: I had a detailed discussion with the patient and/or guardian regarding: the cp historical points, exam findings, and any diagnostic results supporting the discharge/admit diagnosis, lab results, radiology results, the need for outpatient follow up, an ENT specialist, to return to the emergency department if symptoms worsen or persist or if there are any questions or concerns that arise at home. Response to treatment: the patient's symptoms have markedly improved after treatment, VSS. Pain improved. Labs reviewed and negative for sepsis. Will have patient start oral Levaquin for sinusitis and f/u with ENT. 06/09 15:33 Order name: Urine Microscopic Only; Complete Time: 17:09 cp 06/09 17:10 Interpretation: Normal except: UWBC 5-10; URBC 10-20; UBACT 20-50; SQEPI 5-10. cp 04 15:33 Order name: Procalcitonin; Complete Time: 17:38 cp 04 15:33 Order name: Lactate; Complete Time: 17:09 cp 04/ 15:33 Order name: Blood Culture Adult (2) cp 06/09 15:33 Order name: Basic Metabolic Panel; Complete Time: 17:09 cp 04 17:11 Interpretation: Normal except: CL 110; GFR 72; CA 8.3. cp 06/09 15:33 Order name: CBC with Diff; Complete Time: 17:09 cp 06/09 17:10 Interpretation: Normal except: RBC 3.62; HGB 10.2; HCT 30.8; MN% 14.1. cp 04/ 15:33 Order name: LFT's; Complete Time: 17:09 cp 06/09 17:39 Interpretation: Normal except: AST 38; ALB 3.3; GLOB 3.6; A/G 0.9. cp 04/ 15:33 Order name: Magnesium; Complete Time: 17:09 cp 06/09 15:33 Order name: PT-INR; Complete Time: 17:09 cp 06/09 16:31 Order name: Urine Dipstick-Ancillary; Complete Time: 17:09 EDMS 06/09 17:00 Order name: Urine Culture EDMS 06/09 17:56 Order name: COVID-19/FLU A+B; Complete Time: 18:04 EDMS 06/09 15:33 Order name: Urine Dipstick-Ancillary (obtain specimen); Complete Time: 16:35 cp 06/09 15:33 Order name: XRAY Chest (1 view); Complete Time: 17:38 cp 06/09 17:38 Interpretation: Report reviewed. cp 06/09 15:33 Order name: Cardiac monitoring; Complete Time: 16:33 cp 06/09 15:33 Order name: IV Saline Lock; Complete Time: 16:34 cp 06/09 15:33 Order name: Labs collected and sent; Complete Time: 16:34 cp 06/09 15:33 Order name: O2 Per Protocol; Complete Time: 16:34 cp 06/09 15:33 Order name: O2 Sat Monitoring; Complete Time: 16:34 cp 06/09 16:24 Order name: CT Facial Bones W/ Con \T\ Mpr; Complete Time: 17:38 cp 06/09 16:24 Order name: CT Abd/Pelvis - IV Contrast Only; Complete Time: 17:38 cp Administered Medications: 16:33 Drug: morphine 2 mg Route: IVP; Site: right antecubital; bw 18:32 Follow up: Response: No adverse reaction bw 16:33 Drug: Zofran (Ondansetron) 4 mg Route: IVP; Site: right antecubital; bw 18:31 Follow up: Response: No adverse reaction bw 18:45 Drug: fentaNYL (PF) 25 mcg Route: IVP; Site: right antecubital; bw Disposition: 19:10 Chart complete. cp Disposition: 06/09/20 18:47 Discharged to Home. Impression: Acute ethmoidal sinusitis. - Condition is Stable. - Discharge Instructions: Sinusitis, Adult. - Prescriptions for Levaquin 500 mg Oral Tablet - take 1 tablet by ORAL route once daily for 10 days; 10 tablet. Zofran 4 mg Oral Tablet - take 1 tablet by ORAL route every 12 hours As needed; 20 tablet. - Medication Reconciliation Form, Thank You Letter, Antibiotic Education, Prescription Opioid Use form. - Follow up: Leslie Hathaway MD; When: 2 - 3 days; Reason: Recheck today's complaints. - Problem is an ongoing problem. - Symptoms have improved. Addendum: 06/11/2020 18:37 Co-signature as Attending Physician, Iris Pierce MD. m a2 Signatures: Dispatcher [employer] EDMS Niall Chow, MOLDER FITTING-C MOLDER FITTING-Cla1 Stevan Paiz PA PA cp Yvrose Lehman RN RN ea Alzahri, Mohammad, MD MD az2 Marla Verduzco RN RN [facility] Lizeth Borja RN RN Corrections: (The following items were deleted from the chart) 06/09 17:10 17:10 Normal except: RBC 3.62; HGB 10.2; HCT 30.8. cp cp 17:11 17:11 Normal except: CL 110; GFR 72. cp cp 17:13 15:34 CORONAVIRUS+MR.LAB.BRZ ordered. EDMS EDMS 17:13 15:34 Influenza Screen (A \T\ B)+BA.LAB.BRZ ordered. EDMS EDMS 19:08 18:47 06/09/2020 18:47 Discharged to Home. Impression: Acute ethmoidal sinusitis. ea Condition is Stable. Forms are Medication Reconciliation Form, Thank You Letter, Antibiotic Education, Prescription Opioid Use. Follow up: Leslie Hathaway; When: 2 - 3 days; Reason: Recheck today's complaints. Problem is an ongoing problem. Symptoms have improved. cp
[2020-06-09] MEDS ORDERED: FENTANYL CITR 100 MCG/2 ML ONE (18:52)
== END 2020-06-09 19:08 | disposition home or self-care (01) ==
LOC: ER 13:40
DX: J01.20 Acute ethmoidal sinusitis, unspecified (principal); I10 Essential (primary) hypertension; Z98.818 Other dental procedure status; Z20.822 Contact with and (suspected) exposure to COVID-19; Z88.0 Allergy status to penicillin; Z88.2 Allergy status to sulfonamides; Z88.5 Allergy status to narcotic agent; Z88.8 Allergy status to other drugs, medicaments and biological substances; Z91.040 Latex allergy status; Z91.048 Other nonmedicinal substance allergy status
CPT/HCPCS: 87040 ×2; 87088; 85025; 87086; 80048; 36415; 83735; 85610; 80076; 83605; 84145; 0240U; 70487; 76377; 74177; 71045; 96375; 96374; 99284; Q9967; J3010; J2270; J2405; 81003; 81015

== ENCOUNTER 2020-06-10 22:19 | Emergency (ER) | payer OTHER ==
--- OUTSIDE RECORDS SUMMARY | 2020-06-10 22:22 | XMS REPORT | Continuity of Care Document ---
:1945 Author Organization [facility] t Address [address] [place] [address] [address] [place] [address] Care Team Providers Name Role Phone Vega [...] l Renny Latex Latex Active [facility] Zanaflex Adverse Active anaphylaxis [facility] Demerol Adverse Active anaphylaxis [facility] Social History Smoking Status Start Date Stop Date Source Social History 2017-03-12 22:12:03 [facility] Medications Ordered Filled Start Stop Current Ordering [...] No Na Billy [address] [facility] [place] [facility]28 in each [facility] 00:[facility]: 00:00 nostril Memoria 00 :00 [facility] Baclofen Baclofen 2019- No Na Billy 1/[address] [facility] 10-10 with food [facility] - 00:00: 00:00 or milk Memoria 00 :00 [facility] Atorvastati Atorvastati Yes Na Billy [address] [facility] n Calcium n Calcium 6- [facility] - 00:[facility]: Memoria 00 [facility] Citalopram Yes 40 mg = 1 Me [...] ermann Bitartrate 00 5 MG Oral Tablet [[place] 5/325] Omeprazole Yes PO, Daily, M emoria 03 0 l 22:12: Refill(s) [place] 00 Celexa Celexa Yes Na Billy [address] [facility] Baclofen Baclofen Yes Na Billy as [facility] Prilosec Prilosec Yes Na Billy [address] [facility] 30 minutes [facility] - before Memoria morning l meal [facility] Ambien Ambien Yes Na Billy TAKE [address] [facility] TABLET BY [facility] - MOUTH Memoria EVERY DAY l AT BEDTIME [facility] ent Clinics Amlodipine- Amlodipine- Yes Na Billy [address] [facility] [address] Olmesartan Olmesartan [place] [facility] - [facility] Vital Signs Vital Name Observation Time Observation Value Comments Source BMI Calculated 2017-03-12 22:05:00 Karishma Mei Weight 2017-03-12 22:05:00 [facility] Height 2017-03-12 22:05:00 158.75 cm [facility] Temperature Oral (F) 2017-03-12 22:05:00 97.8 F [facility] Heart Rate 2017-03-12 22:05:00 [facility] Systolic (mm Hg) 2017-03-12 22:05:00 Richy Lawson Diastolic (mm Hg) 2017-03-12 22:05:00 Mem orial Renny Procedures Procedure Date / Time Performed Performing Clinician [facility] Bladder operation [facility] nn Hysterectomy [facility] Operation [facility] Encounters Start End Encounter Admission Attending Care Care Encounter Source Date/Time Date/Time Type Type Clinicians Facility Department ID 2020-03-15 2020-03-15 Outpatient [facility] [id number] [facility] 2020-01-14 2020-01-14 [facility] [id number] [facility] 2019-11-30 2019-11-30 [facility] [id number] [facility] 2019-11-16 2019-11-16 [facility] [id number] [facility] 15:00:00 15:00:00 t [employer] [facility] Outpati ent Clinics 2019-11-05 2019-11-05 [facility] [id number] [address] 09:21:00 09:21:00 t [employer] [facility] Outpat[facility] ent Clinics 2019-10-29 2019-10-29 [facility] [id number] [address] 11:34:00 11:34:00 t [employer] [facility] Medicine Outpati ent Clinics 2019-10-29 2019-10-29 [facility] [id number] 10:00:00 10:00:00 t [employer] [facility] Outpati ent Clinics 2019-10-28 2019-10-28 [facility] [id number] [address] 14:09:00 14:09:00 t [employer] [facility] Outpati ent Clinics 2019-10-11 2019-10-11 [facility] [id number] 15:20:00 15:20:00 t [employer] [facility] Medicine Outpati ent Clinics 2019-10-07 2019-10-07 [facility] [id number] 10:56:00 10:56:00 t [facility] [employer] [facility] Medicine Outpati ent Clinics 2019-10-07 2019-10-07 [facility] [id number] 10:00:00 10:00:00 t [employer] [facility] Outpati ent Clinics 2019-10-06 2019-10-06 [facility] [id number] 15:33:00 15:33:00 t [place] [employer] s - Drive [facility] Medicine Outpati ent Clinics 2019-10-06 2019-10-06 [facility] [id number] 13:46:00 13:46:00 t [place] [employer] s - Drive [facility] Medicine Outpati ent Clinics 2019-09-30 2019-09-30 [facility] [id number] 10:09:00 10:09:00 t [place] [employer] s - Drive [facility] Medicine Outpati ent Clinics 2019-08-29 2019-08-29 [facility] [id number] 03:04:00 03:04:00 t [place] s - Drive [facility] Medicine Outpati ent Clinics 2019-08-26 2019-08-26 [facility] [id number] 02:31:00 02:31:00 t [place] s - Drive [facility] Medicine Outpati ent Clinics 2019-08-16 2019-08-16 [facility] [id number] 08:05:00 08:05:00 t [place] s - Drive [facility] Medicine Outpati ent Clinics 2019-08-13 2019-08-13 [facility] [id number] 13:00:00 13:00:[address] [place] [employer] [facility] Outpati ent Clinics 2019-08-13 2019-08-13 [facility] [id number] 13:00:00 13:00:00 t [place] [employer] [employer] [facility] Medicine Outpati ent Clinics 2019-06-10 2019-06-10 Office ALEJANDRO Ferrari [id number] 07:53:05 08:11:21 Visit [facility] [id number] Surgical [id number] [facility] [id number] [address] 2019-06-10 2019-06-10 Telephone ALEJANDRO Ferrari [id number] 00:00:00 00:00:00 [facility] [id number] Surgical [id number] [facility] [id number] 198 Jose 2017-03-12 2017-03-12 [facility] [id number] 07:45:00 23:59:59 Hwan 2017-03-11 2017-03-12 [id number] 09:25:00 23:59:59 04 Results Test Description Test Time Test Comments Results Result Sourc e Comments CHEST 2 VIEWS 2018-12-08 10:09:00 [place] [address] Patient Name: YANA KURTZ MR #: [id number] : 1945 Age/Sex: 73/F Req #: [id number] Adm Physician: Ordered by: SILVIA CM MD Report #: [id number] Location: OR Room/Bed: Procedure: [id number] DX/CHEST 2 VIEWS Exam Date: 12/08/18 Exam [...]
--- NOTE | 2020-06-11 00:01 | ER ---
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 Coronavirus screen: Client denies travel out of the [place] in the last 14 days. At this time, the client does not indicate any symptoms associated with coronavirus-19. Ebola Screen: No symptoms or risks identified at this time. Initial Sepsis Screen: Does the patient meet any 2 criteria? No. Patient's initial sepsis screen is negative. Does the patient have a suspected source of infection? No. Patient's initial sepsis screen is negative. Risk Assessment: Do you want to hurt yourself or someone else? Patient reports no desire to harm self or others. Onset of symptoms was June 10, 2020. 22:49 Method Of Arrival: Ambulatory lp1 22:49 Acuity: PETEY 3 lp1 Historical: - Allergies: 22:53 Codeine; lp1 22:53 COLLAGENASE; lp1 22:53 Demerol; lp1 22:53 Hydromorphone; lp1 22:53 Latex, Natural Rubber; lp1 22:53 Lidocaine; lp1 22:53 PENICILLINS; lp1 22:53 Sulfa (Sulfonamide Antibiotics); lp1 22:53 VENLAFAXINE; lp1 22:53 Zanaflex; lp1 - Home Meds: 22:53 amlodipine-olmesartan Oral [Active]; atorvastatin oral oral [Active]; Prilosec Oral lp1 [Active]; - PMHx: 22:53 degenerative joint disease; Diverticulitis; GERD; High Cholesterol; Hypertension; lp1 - PSHx: 22:53 Cholecystectomy; Bladder suspension; Partial hysterectomy; Appendectomy; neck sx; lp1 - Immunization history:: Adult Immunizations up to date. - Social history:: Smoking status: Patient reports the use of cigarette tobacco products, smokes one-half pack cigarettes per day. Screenin:53 Abuse screen: Denies threats or abuse. Denies injuries from another. Nutritional lp1 screening: No deficits noted. Tuberculosis screening: No symptoms or risk factors identified. Fall Risk None identified. Assessment: 23:00 General: Appears in no apparent distress. Behavior is anxious. Pain: Complains of pain lp1 in groin Quality of pain is described as pressure. Neuro: Level of Consciousness is awake, alert, obeys commands, Oriented to person, place, time, situation. Cardiovascular: Patient's skin is warm and dry. Respiratory: Respiratory effort is even, unlabored. GI: Abdomen is non-distended, Abd is soft and non tender X 4 quads. : Reports urgency, since this morning. EENT: No signs and/or symptoms were reported regarding the EENT system. Derm: Skin is pink, warm \\T\\ dry. Musculoskeletal: Range of motion: intact in all extremities. 06/11 00:00 Reassessment: Patient reports "It seems like the urgency has gone away, I feel better". lp1 Vital Signs: 04 22:49 BP 156 / 71; Pulse 90; Resp 18; Temp 98.3(TE); Pulse Ox 98% on R/A; Weight 83.91 kg lp1 (R); Height 5 ft. 2 in. (157.48 cm); 22:49 Body Mass Index 33.84 (83.91 kg, 157.48 cm) lp1 ED Course: 22:21 Patient arrived in ED. es 22:22 Cesilia Billy MD is Private Physician. es 22:35 [facility]. pm1 22:35 Yusuf Hunt MD is Attending Physician. pm1 22:49 Rosmery Awad, SCOTTIE is Primary Nurse. lp1 22:52 Triage completed. lp1 22:52 Arm band placed on. lp1 22:53 Patient has correct armband on for positive identification. Pulse ox on. NIBP on. lp1 23:09 Bladder scan completed. 85 ml. lp1 06/11 00:00 No provider procedures requiring assistance completed. Patient did not have IV access lp1 during this emergency room visit. Administered Medications: No medications were administered Outcome: 00:01 Discharge ordered by . pm1 00:15 Discharged to home ambulatory. lp1 00:15 Condition: good 00:15 Discharge instructions given to patient, Instructed on discharge instructions, follow up and referral plans. Demonstrated understanding of instructions, follow-up care. 00:16 Patient left the ED. lp1 Signatures: Jacquelyn Clayton Laura RN RN lp1 Yusuf An, ICE DELIVERY DRIVER ICE DELIVERY DRIVER pm1
--- NOTE | 2020-06-11 00:02 | EDPHYS ---
Physician Documentation [facility] Name: Blanka Parker Age: 74 yrs Sex: Female : 1945 Arrival Date: 06/10/2020 Time: 22:21 Bed 6 Private MD: Cesilia Billy ED Physician Yusuf Hunt HPI: 06/11 00:00 This 74 yrs old Female presents to ER via Ambulatory with complaints of pm1 Urinary Urgency. 00:00 The patient presents with urinary symptoms, urgency. Onset: The symptoms/episode pm1 began/occurred yesterday. Modifying factors: The symptoms are alleviated by nothing, the symptoms are aggravated by nothing. Associated signs and symptoms: Pertinent positives: possibly constipation, Pertinent negatives: diarrhea, fever, nausea, vomiting, abdominal pain. Severity of symptoms: in the emergency department the symptoms have resolved. The patient has been recently seen at the [facility] Emergency Department, yesterday, for similar complaints labs were performed, CT scan was performed. Historical: - Allergies: 06/10 22:53 Codeine; lp1 22:53 COLLAGENASE; lp1 22:53 Demerol; lp1 22:53 Hydromorphone; lp1 22:53 Latex, Natural Rubber; lp1 22:53 Lidocaine; lp1 22:53 PENICILLINS; lp1 22:53 Sulfa (Sulfonamide Antibiotics); lp1 22:53 VENLAFAXINE; lp1 22:53 Zanaflex; lp1 - Home Meds: 22:53 amlodipine-olmesartan Oral [Active]; atorvastatin oral oral [Active]; Prilosec Oral lp1 [Active]; - PMHx: 22:53 degenerative joint disease; Diverticulitis; GERD; High Cholesterol; Hypertension; lp1 - PSHx: 22:53 Cholecystectomy; Bladder suspension; Partial hysterectomy; Appendectomy; neck sx; lp1 - Immunization history:: Adult Immunizations up to date. - Social history:: Smoking status: Patient reports the use of cigarette tobacco products, smokes one-half pack cigarettes per day. ROS: 06/11 00:00 Positive for urgency, Negative for burning with urination, difficulty urinating, pm1 bladder incontinence. Constitutional: Negative for fever, chills, and weight loss, Cardiovascular: Negative for chest pain, palpitations, and edema, Respiratory: Negative for shortness of breath, cough, wheezing, and pleuritic chest pain, Abdomen/GI: Negative for abdominal pain, nausea, vomiting, diarrhea, and constipation, Back: Negative for injury and pain, MS/Extremity: Negative for injury and deformity, Skin: Negative for injury, rash, and discoloration, Neuro: Negative for headache, weakness, numbness, tingling, and seizure. Psych: Positive for multiple stressors. Exam: 00:00 Constitutional: This is a well developed, well nourished patient who is awake, alert, pm1 and in no acute distress. Head/Face: Normocephalic, atraumatic. 00:00 Back: No spinal tenderness. No costovertebral tenderness. Full range of motion. 00:00 Skin: Warm, dry with normal turgor. Normal color with no rashes, no lesions, and no evidence of cellulitis. MS/ Extremity: Pulses equal, no cyanosis. Neurovascular intact. Full, normal range of motion. 00:00 Cardiovascular: Exam negative for acute changes, Rate: normal, Rhythm: regular, Pulses: no pulse deficits are appreciated. 00:00 Respiratory: Exam negative for acute changes, respiratory distress, shortness of breath. 00:00 Abdomen/GI: Inspection: abdomen appears normal, Palpation: abdomen is soft and non-tender, in all quadrants. 00:00 Neuro: Exam negative for Orientation: is normal, Mentation: is normal, Motor: is normal, moves all fours. Vital Signs: 06/10 22:49 BP 156 / 71; Pulse 90; Resp 18; Temp 98.3(TE); Pulse Ox 98% on R/A; Weight 83.91 kg lp1 (R); Height 5 ft. 2 in. (157.48 cm); 22:49 Body Mass Index 33.84 (83.91 kg, 157.48 cm) lp1 MDM: 22:35 Patient medically screened. pm1 06/11 00:00 Data reviewed: vital signs. Data interpreted: Pulse oximetry: on room air is 98 %. pm1 Interpretation: normal. Counseling: I had a detailed discussion with the patient and/or guardian regarding: the historical points, exam findings, and any diagnostic results supporting the discharge/admit diagnosis, the need for outpatient follow up. 00:00 Refusal of service: The patient/guardian displays adequate decision making capability pm1 and despite a detailed discussion of alternatives, benefits, risks, and consequences refuses: all lab tests, all X-rays, Patient does not want any other additional tests. Her symptoms have resolved and she was happy not know that the urine culture from yesterday was negative and the bladder u/s also normal. She just wants to go home now since her symptoms of urinary urgency have resolved. 06/10 22:48 Order name: Bladder Scanner; Complete Time: 23:09 pm1 Administered Medications: No medications were administered Disposition: 04:51 Co-signature as Attending Physician, Yusuf Hunt MD I agree with the assessment and tw4 plan of care. Disposition: 06/11/20 00:01 Discharged to Home. Impression: Urgency of urination. - Condition is Stable. - Medication Reconciliation Form, Thank You Letter, Antibiotic Education, Prescription Opioid Use form. - Follow up: Emergency Department; When: As needed; Reason: Worsening of condition. Follow up: Private Physician; When: 2 - 3 days; Reason: Recheck today's complaints, Continuance of care, Re-evaluation by your physician. - Problem is new. - Symptoms are resolved. Signatures: Rosmery Awad RN RN lp1 Yusuf An, HEDGE FUND TRADER HEDGE FUND TRADER pm1 Yusuf Hunt MD MD tw4 Corrections: (The following items were deleted from the chart) 00:16 00:01 06/11/2020 00:01 Discharged to Home. Impression: Urgency of urination. Condition lp1 is Stable. Forms are Medication Reconciliation Form, Thank You Letter, Antibiotic Education, Prescription Opioid Use. Follow up: Emergency Department; When: As needed; Reason: Worsening of condition. Follow up: Private Physician; When: 2 - 3 days; Reason: Recheck today's complaints, Continuance of care, Re-evaluation by your physician. Problem is new. Symptoms are resolved. pm1
[2020-06-11 02:32] VITALS: BP 156/71; TEMP 98.3; O2SAT 98
== END 2020-06-11 00:16 | disposition home or self-care (01) ==
LOC: ER 22:19
DX: R39.15 Urgency of urination (principal); I10 Essential (primary) hypertension; E78.00 Pure hypercholesterolemia, unspecified; F17.210 Nicotine dependence, cigarettes, uncomplicated; Z88.0 Allergy status to penicillin; Z88.2 Allergy status to sulfonamides; Z88.5 Allergy status to narcotic agent; Z88.8 Allergy status to other drugs, medicaments and biological substances; Z91.040 Latex allergy status; Z91.048 Other nonmedicinal substance allergy status
CPT/HCPCS: 99283

== ENCOUNTER 2020-08-17 19:23 | Emergency (ER) | payer OTHER ==
--- OUTSIDE RECORDS SUMMARY | 2020-08-17 19:27 | XMS REPORT | Continuity of Care Document ---
:1945 Author Organization [facility] t Address [address] [place] [address] Dr. Pritchard [address] [place] [address] Care Team Providers Name Role Phone Vega [...] l Renny Latex Latex Active Memoria l [place] Zanaflex Adverse Active anaphylaxis [facility] Demerol Adverse Active anaphylaxis [facility] Social History Smoking Status Start Date Stop Date Source Social History 2017-03-12 22:12:03 [facility] Medications Ordered Filled Start Stop [...] No Na Billy [address] [facility] [place] 10-28 in each [facility] 00[facility]: 00:00 nostril Memoria 00 :00 [facility] Baclofen Baclofen 2019- No Na Billy 1/[address] [facility] 10-10 with food [facility] - 00:00: 00:00 or milk Memoria 00 :00 [facility] Atorvastati Atorvastati Yes Na Billy [address] [facility] n Calcium n Calcium 6- [facility] - 00:[facility]: Memoria 00 [facility] Citalopram Yes 40 mg = 1 Me [...] ermann Bitartrate 00 5 MG Oral Tablet [[place] 5/325] Omeprazole Yes PO, Daily, M emoria 03 0 l 22:12: Refill(s) [place] 00 Celexa Celexa Yes Na Billy [address] [facility] Baclofen Baclofen Yes Na Billy as [facility] directed [facility] Prilosec Prilosec Yes Na Billy [address] [facility] 30 minutes [facility] - before Memoria morning l meal [facility] Ambien Ambien Yes Na Billy TAKE [address] [facility] TABLET BY [facility] - MOUTH Memoria EVERY DAY l AT BEDTIME [facility] Amlodipine- Amlodipine- Yes Na Billy [address] [facility] Olmesartan Olmesartan [place] [facility] - [facility] Vital Signs Vital Name Observation Time Observation Value Comments Source BMI Calculated 2017-03-12 22:05:00 Karishma Mei Weight 2017-03-12 22:05:00 [facility] Height 2017-03-12 22:05:00 158.75 cm [facility] Temperature Oral (F) 2017-03-12 22:05:[address] [facility] Heart Rate 2017-03-12 22:05:00 [facility] Systolic (mm Hg) 2017-03-12 22:05:00 Richy Lawson Diastolic (mm Hg) 2017-03-12 22:05:00 Mem orial Renny Procedures Procedure Date / Time Performed Performing Clinician [facility] Bladder operation [facility] Hysterectomy [facility] Operation [facility] Encounters Start End Encounter Admission Attending Care Care Encounter Source Date/Time Date/Time Type Type Clinicians Facility Department ID 2020-08-14 2020-08-14 Outpatient [facility] [id number] [facility] 2020-07-26 2020-07-26 Outpatient [facility] [id number] [facility] 2020-07-26 2020-07-26 Outpatient [facility] [id number] [facility] 2020-07-13 2020-07-13 Outpatient [facility] [id number] [facility] 2020-06-22 2020-06-22 Outpatient [facility] [id number] [facility] 2020-03-15 2020-03-15 Outpatient [facility] [id number] [facility] 2020-01-14 2020-01-14 Outpatient [facility] [id number] [facility] 2019-11-30 2019-11-30 Outpatient [facility] [id number] [facility] 2019-11-16 2019-11-16 [facility] [id number] [address] 15:00:00 15:00:00 [place] [employer] [facility] Medicine Outpat[facility] ent Clinics 2019-11-05 2019-11-05 [facility] [id number] [address] 09:21:00 09:21:00 [place] [employer] [employer] [facility] - [address] [facility] Medicine Outpat[facility] ent Clinics 2019-10-29 2019-10-29 [facility] [id number] [address] 11:34:00 11:34:00 [place] [employer] - [address] [facility] Medicine l Medicine Outpati ent Clinics 2019-10-29 2019-10-29 [facility] [id number] 10:00:00 10:00:00 [place] [employer] - [facility] Medicine l Medicine Outpati ent Clinics 2019-10-28 2019-10-28 [facility] [id number] 14:09:00 14:09:[address] [facility] - Drive [facility] Medicine l Medicine Outpati ent Clinics 2019-10-11 2019-10-11 [facility] [id number] 15:20:00 15:20:00 [place] [employer] [place] [facility] - Drive [facility] l Medicine Outpati ent Clinics 2019-10-07 2019-10-07 [facility] [id number] 10:56:00 10:56:[address] [facility] [address] [employer] s - Road [facility] l Medicine Outpati ent Clinics 2019-10-07 2019-10-07 [facility] [id number] 10:00:00 10:00:00 [place] [employer] [address] - [address] [facility] l Medicine Outpati ent Clinics 2019-10-06 2019-10-06 [facility] [id number] 15:33:00 15:33:00 [place] [employer] - Drive [facility] l Medicine Outpati ent Clinics 2019-10-06 2019-10-06 [facility] [id number] 13:46:00 13:46:00 [place] [employer] - Drive [facility] l Medicine Outpati ent Clinics 2019-09-30 2019-09-30 [facility] [id number] 10:09:00 10:09:00 [place] [employer] [place] [facility] - Drive [facility] Medicine l Medicine Outpati ent Clinics 2019-08-29 2019-08-29 [facility] [id number] 03:04:00 03:04:00 [place] [employer] - Drive [facility] l Medicine Outpati ent Clinics 2019-08-26 2019-08-26 [facility] [id number] 02:31:00 02:31:00 [place] [employer] - Drive [facility] Medicine l Medicine Outpati ent Clinics 2019-08-16 2019-08-16 [facility] [id number] 08:05:00 08:05:[address] [facility] 2019-08-13 2019-08-13 Outpatient Caitlin Cevallos [id number] 13:00:00 13:00:00 [place] Vowinckel s [facility] 2019-08-13 2019-08-13 Outpatient Caitlin Cevallos [id number] 13:00:00 13:00:00 [facility] 2019-06-10 2019-06-10 Office Vega [facility] [id number] 07:53:05 08:11:21 Visit [facility] [id number] Surgical [id number] Specialti [id number] es [address] [place] 2019-06-10 2019-06-10 Telephone Ferrari, [facility] [id number] 00:00:00 00:00:00 [facility] [id number] Surgical [id number] Specialti [id number] es [address] [place] 2017-03-12 2017-03-12 Outpatient MadalynMorris MISCHER MHMISCHER [id number] 07:45:00 23:59:59 Hwan 2017-03-11 2017-03-12 Outpatient MHMISCHER MHMISCHER [id number] 09:25:00 23:59:59 04 Results Test Description Test Time Test Comments Results Result Sourc e Comments CHEST 2 VIEWS 2018-12-08 10:09:00 [place] [address] Patient Name: YANA KURTZ MR #: [id number] : 1945 Age/Sex: 73/F Req #: [id number] Adm Physician: Ordered by: SILVIA CM MD Report #: [id number] Location: OR Room/Bed: Procedure: [id number] DX/CHEST 2 VIEWS Exam Date: 12/08/18 Exam Time: 0950 REPORT STATUS: Signed TECHNIQUE: Frontal and lateral views of the chest. INDICATION: PRE-OP [facility] ENDO [id number]. COMPARISON: None. FINDINGS: LINES/TUBES: None. LUNGS: [...]
[2020-08-17] MEDS ORDERED: HYDROCODONE/APAP 10/325 TAB ONE (22:06)
[2020-08-17] MEDS ORDERED: methocarbamoL 500 MG TAB ONE (22:06)
--- NOTE | 2020-08-17 22:10 | ER ---
Nurse's Notes [facility] Name: Blanka Parker Age: 74 yrs Sex: Female : 1945 Arrival Date: 08/17/2020 Time: 19:25 Bed 15 Private MD: Cesilia Billy Diagnosis: Osteoarthritis of hip;Pain in right hip Presentation: 08/17 19:33 Chief complaint: Patient states: she has been having right groin pain intermittently x bb 2 weeks but now is constant and radiates down the front of her leg and she has not been able to sleep the last 2 nights she also has had a headache for 3 days. Coronavirus screen: At this time, the client does not indicate any symptoms associated with coronavirus-19. Ebola Screen: No symptoms or risks identified at this time. Initial Sepsis Screen: Does the patient meet any 2 criteria? No. Patient's initial sepsis screen is negative. Does the patient have a suspected source of infection? No. Patient's initial sepsis screen is negative. Risk Assessment: Do you want to hurt yourself or someone else? Patient reports no desire to harm self or others. Onset of symptoms was July 2020. 19:33 Method Of Arrival: Ambulatory bb 19:33 Acuity: PETEY 3 bb Triage Assessment: 19:37 General: Appears in no apparent distress. uncomfortable, Behavior is calm, cooperative. bb Pain: Complains of pain in right groin Pain currently is 5 out of 10 on a pain scale. Neuro: Level of Consciousness is awake, alert, obeys commands, Oriented to person, place, time, situation. Cardiovascular: Capillary refill < 3 seconds Patient's skin is warm and dry. Respiratory: Airway is patent Respiratory effort is even, unlabored, Respiratory pattern is regular. GI: No signs and/or symptoms were reported involving the gastrointestinal system. Derm: Skin is pink, warm \T\ dry. Musculoskeletal: Circulation, motion, and sensation intact. Reports pain in right groin. Historical: - Allergies: 19:36 Codeine; bb 19:36 COLLAGENASE; bb 19:36 Demerol; bb 19:36 Hydromorphone; bb 19:36 Latex, Natural Rubber; bb 19:36 Lidocaine; bb 19:36 PENICILLINS; bb 19:36 Sulfa (Sulfonamide Antibiotics); bb 19:36 VENLAFAXINE; bb 19:36 Zanaflex; bb - Home Meds: 19:36 amlodipine-olmesartan Oral [Active]; atorvastatin Oral [Active]; Prilosec Oral bb [Active]; gabapentin oral oral [Active]; - PMHx: 19:36 degenerative joint disease; Diverticulitis; GERD; High Cholesterol; Hypertension; bb - PSHx: 19:36 Cholecystectomy; Bladder suspension; Partial hysterectomy; Appendectomy; neck sx; bb - Immunization history:: Adult Immunizations up to date. - Social history:: Smoking status: Patient reports the use of cigarette tobacco products, smokes one-half pack cigarettes per day. Screenin:12 Abuse screen: Denies threats or abuse. Nutritional screening: No deficits noted. jb4 Tuberculosis screening: No symptoms or risk factors identified. Fall Risk None identified. Assessment: 20:11 General: Appears in no apparent distress. uncomfortable, Behavior is calm, cooperative. jb4 Pain: Complains of pain in right hip Pain radiates to lateral aspect of right thigh and medial aspect of right thigh Pain currently is 5 out of 10 on a pain scale. Neuro: Level of Consciousness is awake, alert, obeys commands, Oriented to person, place, time, situation. Cardiovascular: Patient's skin is warm and dry. Respiratory: Airway is patent Respiratory effort is even, unlabored, Respiratory pattern is regular, symmetrical. GI: No signs and/or symptoms were reported involving the gastrointestinal system. : No signs and/or symptoms were reported regarding the genitourinary system. EENT: No signs and/or symptoms were reported regarding the EENT system. Derm: Skin is intact, Skin is pink, warm \T\ dry. Musculoskeletal: Circulation, motion, and sensation intact. Range of motion: intact in all extremities. 21:00 Reassessment: Patient appears in no apparent distress at this time. Patient and/or jb4 family updated on plan of care and expected duration. Pain level reassessed. Patient is alert, oriented x 3, equal unlabored respirations, skin warm/dry/pink. 22:30 Reassessment: Patient appears in no apparent distress at this time. Patient and/or jb4 family updated on plan of care and expected duration. Pain level reassessed. Patient is alert, oriented x 3, equal unlabored respirations, skin warm/dry/pink. Vital Signs: 19:33 BP 148 / 61; Pulse 78; Resp 16 S; Temp 98.8(O); Pulse Ox 97% on R/A; Weight 81.65 kg bb (R); Height 5 ft. 2 in. (157.48 cm) (R); Pain 5/10; 22:30 BP 150 / 71; Pulse 65; Resp 16; Pulse Ox 98% on R/A; jb4 19:33 Body Mass Index 32.92 (81.65 kg, 157.48 cm) ED Course: 19:25 Patient arrived in ED. es 19:25 Cesilia Billy MD is Private Physician. es 19:35 Triage completed. bb 19:36 Arm band placed on Patient placed in waiting room, Patient notified of wait time. bb 20:02 Laci Zheng, SCOTTIE is Primary Nurse. jb4 20:05 Dariusz Wu PA is PHCP. jr8 20:05 Stevan Saucedo MD is Attending Physician. jr8 20:12 Patient has correct armband on for positive identification. Bed in low position. Call jb4 light in reach. Side rails up X 1. Pulse ox on. NIBP on. 21:22 XRAY Hip RIGHT 2 view In Process Unspecified. EDMS 22:35 No provider procedures requiring assistance completed. Patient did not have IV access jb4 during this emergency room visit. Administered Medications: 21:54 Drug: [place] (HYDROcodone-acetaminophen) 10 mg-325 mg 1 tabs Route: PO; 22:35 Follow up: Response: No adverse reaction; Marked relief of symptoms; Pain is decreased; jb4 RASS: Alert and Calm (0) 21:54 Drug: Robaxin (methocarbamol) 750 mg Route: PO; 22:35 Follow up: Response: No adverse reaction; Pain is decreased jb4 Outcome: 22:10 Discharge ordered by . jr8 22:35 Discharged to home via wheelchair, with family. jb4 22:35 Condition: stable 22:35 Discharge instructions given to patient, Instructed on discharge instructions, follow up and referral plans. medication usage, Demonstrated understanding of instructions, follow-up care, medications, Prescriptions given X 1. 22:35 Patient left the ED. jb4 Signatures: Dispatcher [employer] EDMS Jacquelyn Clayton Brenda, RN RN bb Dariusz Wu PA PA jr8 Laci Zheng, RN RN jb4 Dom Osuna, RN RN wh
--- NOTE | 2020-08-17 22:10 | EDPHYS ---
Physician Documentation [facility] Name: Blanka Parker Age: 74 yrs Sex: Female : 1945 Arrival Date: 08/17/2020 Time: 19:25 Bed 15 Private MD: Cesilia Billy ED Physician Stevan Saucedo HPI: 08/17 22:06 This 74 yrs old Female presents to ER via Ambulatory with complaints of Groin jr8 Pain. 22:06 The patient or guardian reports pain. that occurred at home, sustained from unknown jr8 reason, There is no obvious deformity, The patient is able to self ambulate. The patient is able to bear their full body weight. The patient's discomfort radiates to the right leg. Onset: The symptoms/episode began/occurred acutely. Modifying factors: The symptoms are alleviated by remaining still, the symptoms are aggravated by weight bearing. Associated signs and symptoms: Pertinent positives: None. Severity of symptoms: At their worst the symptoms were moderate, in the emergency department the symptoms are unchanged. It is unknown whether or not the patient has had similar symptoms in the past. The patient has not recently seen a physician. Patient stated that he has chronic hip problems but that her hip started to hurt after stepping off a curb a week or so ago. Still not subsiding . Historical: - Allergies: 19:36 Codeine; bb 19:36 COLLAGENASE; bb 19:36 Demerol; bb 19:36 Hydromorphone; bb 19:36 Latex, Natural Rubber; bb 19:36 Lidocaine; bb 19:36 PENICILLINS; bb 19:36 Sulfa (Sulfonamide Antibiotics); bb 19:36 VENLAFAXINE; bb 19:36 Zanaflex; bb - Home Meds: 19:36 amlodipine-olmesartan Oral [Active]; atorvastatin Oral [Active]; Prilosec Oral bb [Active]; gabapentin oral oral [Active]; - PMHx: 19:36 degenerative joint disease; Diverticulitis; GERD; High Cholesterol; Hypertension; bb - PSHx: 19:36 Cholecystectomy; Bladder suspension; Partial hysterectomy; Appendectomy; neck sx; bb - Immunization history:: Adult Immunizations up to date. - Social history:: Smoking status: Patient reports the use of cigarette tobacco products, smokes one-half pack cigarettes per day. ROS: 22:06 Eyes: Negative for injury, pain, redness, and discharge, ENT: Negative for injury, jr8 pain, and discharge, Neck: Negative for injury, pain, and swelling, Cardiovascular: Negative for chest pain, palpitations, and edema, Respiratory: Negative for shortness of breath, cough, wheezing, and pleuritic chest pain, Abdomen/GI: Negative for abdominal pain, nausea, vomiting, diarrhea, and constipation, Back: Negative for injury and pain, Skin: Negative for injury, rash, and discoloration, Neuro: Negative for headache, weakness, numbness, tingling, and seizure. 22:06 MS/extremity: Positive for pain, of the right hip. Exam: 22:06 Constitutional: This is a well developed, well nourished patient who is awake, alert, jr8 and in no acute distress. Cardiovascular: Regular rate and rhythm with a normal S1 and S2. No gallops, murmurs, or rubs. Normal PMI, no JVD. No pulse deficits. Respiratory: Lungs have equal breath sounds bilaterally, clear to auscultation and percussion. No rales, rhonchi or wheezes noted. No increased work of breathing, no retractions or nasal flaring. Abdomen/GI: Soft, non-tender, with normal bowel sounds. No distension or tympany. No guarding or rebound. No evidence of tenderness throughout. Back: No spinal tenderness. No costovertebral tenderness. Full range of motion. Skin: Warm, dry with normal turgor. Normal color with no rashes, no lesions, and no evidence of cellulitis. Neuro: Awake and alert, GCS 15, oriented to person, place, time, and situation. Cranial nerves II-XII grossly intact. Motor strength 5/5 in all extremities. Sensory grossly intact. Cerebellar exam normal. Normal gait. 22:06 Musculoskeletal/extremity: Extremities: grossly normal except: noted in the right leg: Patient with tenderness to inguinal region and medial thigh. No trauma, erythema, nodules, masses, or lymphadenopathy noted. Full ROM Present without pain , Circulation is intact in all extremities. Sensation intact. Vital Signs: 19:33 BP 148 / 61; Pulse 78; Resp 16 S; Temp 98.8(O); Pulse Ox 97% on R/A; Weight 81.65 kg bb (R); Height 5 ft. 2 in. (157.48 cm) (R); Pain 5/10; 22:30 BP 150 / 71; Pulse 65; Resp 16; Pulse Ox 98% on R/A; jb4 19:33 Body Mass Index 32.92 (81.65 kg, 157.48 cm) bb MDM: 20:05 Patient medically screened. jr8 22:08 Data reviewed: vital signs, nurses notes, radiologic studies, plain films. Data jr8 interpreted: Pulse oximetry: on room air is 97 %. Interpretation: normal. Counseling: I had a detailed discussion with the patient and/or guardian regarding: the historical points, exam findings, and any diagnostic results supporting the discharge/admit diagnosis, radiology results, the need for outpatient follow up, a orthopedic surgeon, to return to the emergency department if symptoms worsen or persist or if there are any questions or concerns that arise at home. ED course: Patient has ortho appointment this upcoming Friday. No acute findings on imaging. Will d/c home to f/u with her orthopedic . 08/17 20:36 Order name: XRAY Hip RIGHT 2 view jr8 Administered Medications: 21:54 Drug: [place] (HYDROcodone-acetaminophen) 10 mg-325 mg 1 tabs Route: PO; 22:35 Follow up: Response: No adverse reaction; Marked relief of symptoms; Pain is decreased; jb4 RASS: Alert and Calm (0) 21:54 Drug: Robaxin (methocarbamol) 750 mg Route: PO; 22:35 Follow up: Response: No adverse reaction; Pain is decreased jb4 Disposition: 08/18 07:11 Co-signature as Attending Physician, Stevan Saucedo MD I agree with the assessment and sawyer plan of care. Disposition: 08/17/20 22:10 Discharged to Home. Impression: Osteoarthritis of hip, Pain in right hip. - Condition is Stable. - Discharge Instructions: Arthritis, Hip Pain. - Prescriptions for Cyclobenzaprine 10 mg Oral Tablet - take 1 tablet by ORAL route every 8 hours As needed; 30 tablet. - Medication Reconciliation Form, Thank You Letter, Antibiotic Education, Prescription Opioid Use form. - Follow up: Private Physician; When: 2 - 3 days; Reason: Recheck today's complaints, Continuance of care, Re-evaluation by your physician. - Problem is new. - Symptoms have improved. Signatures: Dispatcher [employer] EDMS Stevan Saucedo MD MD cha Ballard, Brenda RN RN Dariusz Benavides PA PA jr8 Laci Zheng RN RN jb4 Dom Osuna RN RN Corrections: (The following items were deleted from the chart) 08/17 22:35 22:10 08/17/2020 22:10 Discharged to Home. Impression: Osteoarthritis of hip; Pain in jb4 right hip. Condition is Stable. Forms are Medication Reconciliation Form, Thank You Letter, Antibiotic Education, Prescription Opioid Use. Follow up: Private Physician; When: 2 - 3 days; Reason: Recheck today's complaints, Continuance of care, Re-evaluation by your physician. Problem is new. Symptoms have improved. jr8
[2020-08-17 22:46] VITALS: TEMP 98.8
[2020-08-17 22:48] VITALS: BP 150/71; O2SAT 98
--- NOTE | 2020-08-18 08:38 | RAD REPORT ---
EXAM DESCRIPTION: RAD - Hip Right 2 View - 08/17/2020 9:22 pm CLINICAL HISTORY: Right hip pain FINDINGS: No fracture or dislocation is seen. Mild osteoarthritis involves the right hip consisting of mild joint space narrowing and subchondral s clerosis.
== END 2020-08-17 22:35 | disposition home or self-care (01) ==
LOC: ER 19:23
DX: M16.11 Unilateral primary osteoarthritis, right hip (principal); E78.00 Pure hypercholesterolemia, unspecified; I10 Essential (primary) hypertension; F17.210 Nicotine dependence, cigarettes, uncomplicated; Z88.0 Allergy status to penicillin; Z88.1 Allergy status to other antibiotic agents; Z88.2 Allergy status to sulfonamides; Z88.5 Allergy status to narcotic agent; Z88.8 Allergy status to other drugs, medicaments and biological substances; Z91.040 Latex allergy status; Z91.048 Other nonmedicinal substance allergy status
CPT/HCPCS: 99284

== ENCOUNTER 2020-12-22 23:41 | Emergency (ER) | payer OTHER ==
[2020-12-23 00:38] LABS: Absolute Lymphocytes (CBC) 0.9 K/uL (0.7-4.9); Basophils % 0.1 % (0-1.3); Lymphocytes % 12.1 % (15.3-44.8); MPV 8.5 fL (7.6-11.3); RBC Red Blood Cell Count 3.55 M/uL (3.86-4.86)
[2020-12-23 00:39] LABS: Protime INR 1.09
[2020-12-23 00:53] LABS: ALT/SGPT 22 U/L (12-78); AST/SGOT 11 U/L (15-37); Albumin 3.3 g/dL (3.4-5.0); Alkaline Phosphatase 68 U/L (45-117); BUN Blood Urea Nitrogen 19 mg/dL (7-18); Bicarbonate 24 mmol/L (21-32); Bilirubin Direct < 0.1 mg/dL (0-0.2); Bilirubin Total 0.2 mg/dL (0.2-1.0); Glucose Level 168 mg/dL (74-106); NT PRO-BNP 129 pg/mL (<450); Potassium 3.9 mmol/L (3.5-5.1); Protein, Total 6.9 g/dL (6.4-8.2); Sodium Level 141 mmol/L (136-145); Troponin (Emerg Dept Use Only) < 0.02 ng/mL (0.0-0.045)
[2020-12-23] MEDS ORDERED: NA CHLORIDE 0.9% 500 ML ONE (01:12)
--- NOTE | 2020-12-23 02:14 | ER ---
Nurse's Notes [facility] Name: Blanka Parker Age: 75 yrs Sex: Female : 1945 Arrival Date: 12/22/2020 Time: 23:44 Bed 15 Private MD: Diagnosis: Chest pain, unspecified Presentation: 12/23 00:14 Chief complaint: Patient states: Multiple complaints, ongoing left sided chest pain sj1 that radiates to left arm and upper back with SOB and dizziness, denies n/v/d. ablation neck procedure today. c/o dark urine and difficulty urinating. Coronavirus screen: Vaccine status: Patient reports being unvaccinated. Ebola Screen: Patient negative for fever greater than or equal to 101.5 degrees Fahrenheit, and additional compatible Ebola Virus Disease symptoms Patient denies exposure to infectious person. Patient denies travel to an Ebola-affected area in the 21 days before illness onset. Initial Sepsis Screen: Does the patient meet any 2 criteria? No. Patient's initial sepsis screen is negative. Does the patient have a suspected source of infection? No. Patient's initial sepsis screen is negative. Risk Assessment: Do you want to hurt yourself or someone else? Patient reports no desire to harm self or others. Onset of symptoms was December 2020. 00:14 Method Of Arrival: Ambulatory sj1 00:14 Acuity: PETEY 2 sj1 Triage Assessment: 00:19 General: Appears in no apparent distress. Behavior is calm, cooperative, appropriate sj1 for age. Pain: Complains of pain in back, chest and left arm Pain currently is 4 out of 10 on a pain scale. at worst was 10 out of 10 on a pain scale. level that patient reports is acceptable is 0 out of 10 on a pain scale. Quality of pain is described as pressure. Pain:. EENT: No deficits noted. Neuro: Reports dizziness. Cardiovascular: Reports chest pain. Respiratory: Reports shortness of breath at rest. GI: No deficits noted. : Reports difficulty urinating, dark urine. Derm: No deficits noted. Musculoskeletal: Reports pain in back. Historical: - Allergies: 00:19 Codeine; sj1 00:19 COLLAGENASE; sj1 00:19 hydromorphone; sj1 00:19 Latex, Natural Rubber; sj1 00:19 Demerol; sj1 00:19 PENICILLINS; sj1 00:19 Lidocaine; sj1 00:19 venlafaxine; sj1 00:19 Zanaflex; sj1 00:19 Sulfa (Sulfonamide Antibiotics); sj1 - PMHx: 00:19 degenerative joint disease; Diverticulitis; GERD; High Cholesterol; Hypertension; sj1 - Immunization history:: Adult Immunizations up to date, Client reports having NOT received the Covid vaccine. - Social history:: Smoking status: Patient reports the use of cigarette tobacco products, smokes one-half pack cigarettes per day, Patient/guardian denies using alcohol, street drugs. Screenin:21 Abuse screen: Denies threats or abuse. Denies injuries from another. Nutritional sj1 screening: No deficits noted. Tuberculosis screening: No symptoms or risk factors identified. Fall Risk. Fall Risk None identified. Assessment: 00:15 General: Appears in no apparent distress. obese, well groomed, Behavior is cooperative, dc2 anxious. Pain: Complains of pain in Left chest wall pain that radiates down right arm for past 6 months. reports is intermittent and does not want to go to [place] for cardiology. 00:15 Neuro: No deficits noted. Reports headache for many days . reports doesn't take any dc2 meds for headache. Cardiovascular: Reports chest pain, palpitations, heart racing Capillary refill < 3 seconds is brisk Rhythm is sinus tachycardia. Cardiovascular: Reports does get occasionally dizzy at times " for a long time " Rhythm is sinus tachycardia. Respiratory: Reports shortness of breath when takes deep breath. , Reports this started early this morning before her procedure. GI: No signs and/or symptoms were reported involving the gastrointestinal system. Abdomen is non-distended, obese, Bowel sounds present X 4 quads. : Reports that her urine has been dark for " I don't know how long but a long time ". Derm: Pt has large band aid to posterior neck from having procedure done on Friday morning. Musculoskeletal: No deficits noted. 00:15 Pain: Pain radiates to left chest wall pain that radiates down left arm, states it is dc2 intermittent. 03:36 Reassessment: Pt called to desk " You need to make the beeping stop because I want to dc2 sleep" While attempting to reset alarms, pt ask about hospital bed, informed pt that we would be getting a bed for her. While repositioning oxygen probe , pt states " If you can't get me a bed I want to go home" Explain to patient that I would be able to get her a bed but it would be a few minutes. " Pt replies " I want to go home , your'e rude" . Attempt to speak to patient, she states " You wouldn't take my urine and I was told to pee " I explained that the physician did not feel a urine was necessary" Pt. and had asked about the urine several times and I explained multiple times that we keep the first urine just in case. Pt call multiple multiple times when several staff would assist with needs. Pt states she would like to leave and she knows the Doctors and that Arti is the charge nurse. Informed pt I would let the Admitting MD know her interest in leaving. 03:49 Reassessment: Niall Munoz made aware of pt wish to go AMA states will come down to speak dc2 to her . While on phone pt voices that she would like her IV out NOW. SCOTTIE Radford go into to remove IV at this time. While in room Dr. Munoz into speak to patient and patient left AMA without signing an AMA form. Pt leave out of the ED at 0340 with steady gait noted. Vital Signs: 00:14 BP 136 / 63; Pulse 114; Resp 18 S; Temp 99.4(O); Pulse Ox 96% on R/A; Weight 81.19 kg sj1 (R); Height 5 ft. 2 in. (157.48 cm) (R); Pain 4/10; 01:00 BP 110 / 66; Pulse 94; Resp 18; Pulse Ox 96% ; Pain 6/10; dc2 03:00 BP 136 / 64; Pulse 73; Resp 17; Pulse Ox 96% ; Pain 3/10; dc2 00:14 Body Mass Index 32.74 (81.19 kg, 157.48 cm) 1 ED Course: 12/22 23:44 Patient arrived in ED. bp1 23:46 Flo Ng MD is Attending Physician. ps1 12/23 00:19 Triage completed. sj1 00:19 XRAY Chest (1 view) In Process Unspecified. EDMS 00:19 Arm band placed on. sj1 00:20 Gail Vasquez, SCOTTIE is Primary Nurse. sj1 00:20 No provider procedures requiring assistance completed. Inserted saline lock: 20 gauge dc2 in right antecubital area, using aseptic technique. Blood collected. 00:21 Patient has correct armband on for positive identification. quality assurance monitor final on. Pulse sj1 ox on. NIBP on. 00:21 Patient maintains SpO2 saturation greater than 95% on room air. sj1 00:24 CBC with Diff Sent. sj1 00:24 LFT's Sent. sj1 00:24 NT PRO-BNP Sent. sj1 00:24 Magnesium Sent. sj1 00:24 Troponin (emerg Dept Use Only) Sent. sj1 00:24 PT-INR Sent. sj1 00:24 Basic Metabolic Panel Sent. sj1 00:24 Basic Metabolic Panel Sent. sj1 01:30 Awaiting lab results, Awaiting radiology results. dc2 01:30 Placed in gown. Bed in low position. Call light in reach. Side rails up X 1. Adult w/ dc2 patient. quality assurance monitor final on. Pulse ox on. NIBP on. Door closed. Lights dimmed. Warm blanket given. Attempt to find pillow and there are no pillows available.. 02:14 Willy Patel MD is Hospitalizing Provider. ps1 02:30 No apparent distress. dc2 02:30 Awaiting bed assignment. dc2 02:30 Bed in low position. Call light in reach. Side rails up X 1. Adult w/ patient. Cardiac dc2 monitor on. Pulse ox on. NIBP on. 02:34 Patient admitted, IV remains in place. intact, No redness/swelling at site. dc2 03:30 Bed in low position. Call light in reach. Side rails up X 1. Adult w/ patient. Cardiac dc2 monitor on. Pulse ox on. NIBP on. Discuss with pt being admitted and will be remaining in the ED overnight . Pt voices understanding. . 03:40 IV discontinued, intact, bleeding controlled, No redness/swelling at site. Pressure dc2 dressing applied, IV removed by SCOTTIE Radford. Administered Medications: 01:04 Drug: normal saline 500 500 ml Route: IV; Rate: bolus; Infused Over: 1 hrs; Site: right sj1 antecubital; Delivery: Primary tubing; 02:00 Follow up: IV Status: Completed infusion; IV Intake: 500ml dc2 Intake: 02:00 IV: 500ml; Total: 500ml. dc2 Outcome: 02:14 Decision to Hospitalize by Provider. ps1 02:32 Condition: stable dc2 02:32 Instructed on the need for admit. 03:40 AMA Left before signing form. dc2 03:40 Condition: Walk out of the ED with strong steady gait. dc2 03:54 Patient left the ED. dc2 Signatures: Dispatcher [employer] EDMS Flo Ng MD MD ps1 Zaida Onofre Denise, RN RN dc2 Gail Vasquez RN RN sj1 Corrections: (The following items were deleted from the chart) 03:49 00:22 Pain: Pain began sj1 dc2 04:00 03:56 No apparent distress. dc2 dc2
--- NOTE | 2020-12-23 02:14 | EDPHYS ---
Physician Documentation [facility] Name: Blanka Parker Age: 75 yrs Sex: Female : 1945 Arrival Date: 12/22/2020 Time: 23:44 Bed 15 Private MD: ED Physician Flo Ng HPI: 12/23 00:42 This 75 yrs old Female presents to ER via Ambulatory with complaints of Chest ps1 Pain > 30 y/o. 00:42 Patient has had chest pain for the last couple months. States that she is otherwise ps1 blown it off and not sought off care. She has had a heart catheterization and a stress test per Dr. Paz in the past with negative findings so not believe that she had any concern for heart disease. She states that the pain came back today however she had procedure done what sounds like a nerve ablation that was performed by neurosurgeon. She states that she had propofol and Versed for the procedure. She states that she had palpitations and noticed that her pulse was increased so she came into the emergency department for evaluation. Symptoms are not associated with nausea vomiting or diaphoresis.. Historical: - Allergies: 00:19 Codeine; sj1 00:19 COLLAGENASE; sj1 00:19 hydromorphone; sj1 00:19 Latex, Natural Rubber; sj1 00:19 Demerol; sj1 00:19 PENICILLINS; sj1 00:19 Lidocaine; sj1 00:19 venlafaxine; sj1 00:19 Zanaflex; sj1 00:19 Sulfa (Sulfonamide Antibiotics); sj1 - PMHx: 00:19 degenerative joint disease; Diverticulitis; GERD; High Cholesterol; Hypertension; sj1 - Immunization history:: Adult Immunizations up to date, Client reports having NOT received the Covid vaccine. - Social history:: Smoking status: Patient reports the use of cigarette tobacco products, smokes one-half pack cigarettes per day, Patient/guardian denies using alcohol, street drugs. ROS: 00:42 Constitutional: Negative for fever, chills, and weight loss, Eyes: Negative for injury, ps1 pain, redness, and discharge. 00:42 Respiratory: Negative for shortness of breath, cough, wheezing, and pleuritic chest pain, Abdomen/GI: Negative for abdominal pain, nausea, vomiting, diarrhea, and constipation, MS/Extremity: Negative for injury and deformity, Skin: Negative for injury, rash, and discoloration, Neuro: Negative for headache, weakness, numbness, tingling, and seizure. 00:42 Neck: Positive for pain at rest, Chronic. 00:42 Cardiovascular: Positive for chest pain, of the left arm and chest. Exam: 00:42 Constitutional: This is a well developed, well nourished patient who is awake, alert, ps1 and in no acute distress. Head/Face: Normocephalic, atraumatic. Chest/axilla: Normal chest wall appearance and motion. Nontender with no deformity. No lesions are appreciated. Respiratory: Lungs have equal breath sounds bilaterally, clear to auscultation and percussion. No rales, rhonchi or wheezes noted. No increased work of breathing, no retractions or nasal flaring. Abdomen/GI: Soft, non-tender, with normal bowel sounds. No distension or tympany. No guarding or rebound. No evidence of tenderness throughout. Skin: Warm, dry with normal turgor. Normal color with no rashes, no lesions, and no evidence of cellulitis. MS/ Extremity: Pulses equal, no cyanosis. Neurovascular intact. Full, normal range of motion. Neuro: Awake and alert, GCS 15, oriented to person, place, time, and situation. Cranial nerves II-XII grossly intact. Sensory grossly intact. 00:42 Cardiovascular: Rate: tachycardic, Heart sounds: murmur, systolic, grade 2 over 6, heard in the aortic area. 00:42 ECG was reviewed by the Attending Physician. Vital Signs: 00:14 BP 136 / 63; Pulse 114; Resp 18 S; Temp 99.4(O); Pulse Ox 96% on R/A; Weight 81.19 kg [facility] (R); Height 5 ft. 2 in. (157.48 cm) (R); Pain 4/10; 01:00 BP 110 / 66; Pulse 94; Resp 18; Pulse Ox 96% ; Pain 6/10; dc2 03:00 BP 136 / 64; Pulse 73; Resp 17; Pulse Ox 96% ; Pain 3/10; dc2 00:14 Body Mass Index 32.74 (81.19 kg, 157.48 cm) [facility] MDM: 00:04 Patient medically screened. ps1 12/22 23:47 Order name: Basic Metabolic Panel ps1 12/22 23:47 Order name: CBC with Diff; Complete Time: 01: ps1 12/22 23:47 Order name: LFT's; Complete Time: 01: ps1 12/22 23:47 Order name: Magnesium; Complete Time: 01: ps1 12/22 23:47 Order name: NT PRO-BNP; Complete Time: 01: ps1 12/22 23:47 Order name: PT-INR; Complete Time: 01: ps1 12/22 23:47 Order name: Troponin (emerg Dept Use Only); Complete Time: 01: ps1 12/22 23:47 Order name: XRAY Chest (1 view) ps1 12/22 23:47 Order name: EKG; Complete Time: 23:48 ps1 12/22 23:47 Order name: Cardiac monitoring; Complete Time: 00:24 ps1 12/22 23:47 Order name: EKG - Nurse/Tech; Complete Time: 00:24 ps1 12/22 23:47 Order name: IV Saline Lock; Complete Time: 00:24 ps1 12/22 23:47 Order name: Basic Metabolic Panel; Complete Time: 01:09 EDMS 12/22 23:47 Order name: Labs collected and sent; Complete Time: 00:24 ps1 12/22 23:47 Order name: O2 Per Protocol; Complete Time: 00:24 ps1 12/22 23:47 Order name: O2 Sat Monitoring; Complete Time: 00:24 ps1 EC:42 Rate is 104 beats/min. Rhythm is regular. QRS [place] is Normal. [place] interval is normal. ps1 QRS interval is normal. QT interval is normal. Q waves are Present. Q waves are Old in leads II, III, aVF. T waves are Normal. No ST changes noted. Clinical impression: Abnormal EKG without significant change. Administered Medications: 01:04 Drug: normal saline 500 500 ml Route: IV; Rate: bolus; Infused Over: 1 hrs; Site: right sj1 antecubital; Delivery: Primary tubing; 02:00 Follow up: IV Status: Completed infusion; IV Intake: 500ml dc2 Disposition Summary: 12/23/20 02:14 Hospitalization Ordered Hospitalization Status: Observation ps1 Provider: Willy Patel ps1 Condition: Stable ps1 Problem: new ps1 Symptoms: are unchanged ps1 Bed/Room Type: Standard ps1 Location: [facility] ER HOLD(12/23/20 03:32) cg Room Assignment: ERHOLD-(12/23/20 03:32) cg Diagnosis - Chest pain, unspecified ps1 Forms: - Medication Reconciliation Form ps1 - SBAR form ps1 Signatures: Dispatcher [employer] Katey Gordon RN RN cg Flo Ng MD MD ps1 Gail Vasquez RN RN sj1 KimberlyAna RN dc2 Corrections: (The following items were deleted from the chart) 03:32 02:14 Telemetry/MedSurg (observation) ps1 cg 03:32 02:14 ps1 cg
--- NOTE | 2020-12-23 02:48 | P.HP ---
Certification for Inpatient Patient admitted to: Observation With expected LOS: <2 Midnights Patient will require the following post-hospital care: None Practitioner: I am a practitioner with admitting privileges, knowledge of patient current condition, hospital course, and medical plan of care. Services: Services provided to patient in accordance with Admission requirements found in Title 42 Section 412.3 of the Code of Federal Regulations Patient History Date of Service: 12/23/20 Primary Care Provider: Dr. Billy Reason for admission: Chest pain History of Present Illness: 75-year-old female with history of hypertension, hyperlipidemia, DJD, GERD presents emergency department for chest pain. Patient reports having a nerve ablation in her neck on Friday morning, reports intermittent symptoms of chest pain over the course of last few months, episodes of chest pain are associated with palpitations, shortness of breath. Patient reports she believes she has intermittent atrial fibrillation but has never been evaluated for this in the past. At this time patient chest pain has resolved it was initially described as sharp radiating to her back and left arm associated with some shortness of breath labs were significant for hemoglobin 9.8 hematocrit 30 BUN 19 GFR 46 glucose 168 chest x-ray unremarkable EKG without acute changes initial troponin negative. Patient reports last visit with corporate travel expert was approximately 7 to 8 years ago. ED provider wishes to be under observation for ACS rule out. Allergies nicotine Allergy (Mild, Verified 01/13/16 18:13) Itching cefuroxime [From Ceftin] Allergy (Unknown, Verified 01/13/16 19:51) unknown/ per Dr Ramires hydromorphone [From Dilaudid] Allergy (Unknown, Verified 01/13/16 19:51) unknown/ per Dr Ramires Lnxgyja-AEB-AvN Reductase Inhibitor [Fylybii-Tao-Srk Reductase Inhibitor] Allergy (Unknown, Verified 01/13/16 19:51) unknown/ per Dr Ramires Sulfa (Sulfonamide Antibiotics) Allergy (Unknown, Verified 01/13/16 19:51) unknown/ per Dr Ramires meperidine HCl [From Demerol] Allergy (Verified 11/30/13 21:59) Anaphylaxis Penicillins Allergy (Verified 01/13/16 14:46) Unknown tizanidine HCl [From Zanaflex] Allergy (Verified 01/13/16 14:47) Unknown lidocaine Adverse Reaction (Severe, Verified 09/23/14 21:59) syncope codeine [Codeine] Adverse Reaction (Verified 11/30/13 21:59) tachycardia Latex, Natu Allergy (Uncoded 06/20/16 18:20) Unknown Latex, Natural R Allergy (Uncoded 12/20/15 18:11) Unknown Home Medications: Citalopram [Celexa*] 20 mg PO DAILY 12/01/13 Zolpidem Tartrate [Ambien] 10 mg PO BEDTIME 06/29/19 Amlodipine [Norvasc*] 5 mg PO DAILY #30 tab 06/30/19 Atorvastatin Calcium 40 mg PO DAILY 02/11/20 Omeprazole [Prilosec] 40 mg PO DAILY 02/11/20 - Past Medical/Surgical History Diabetic: No -: GERD -: HTN -: Hyperlipidemia -: Skin cancer -: DJD -: Insomnia -: Recurrent diverticulitis -: lap beulah -: lap appy -: partial hyst -: foot surgery -: neck surgery -: back surgery -: Bladder suspension Psychosocial/ Personal History: Patient lives at home with her , adequate in-home care. - Family History Mother -: Lung disease Father -: Heart disease - Social History Smoking Status: Current every day smoker Counseled patient to stop smoking for: less than 10 minutes Smoking therapy provided: No (Patient declined, allergic to patch) Alcohol use: Yes CD- Drugs: No Caffeine use: Yes Place of Residence: Home Review of Systems 10-point ROS is otherwise unremarkable Cardiovascular: Chest Pain, Palpitations, Light Headedness, As per HPI Physical Examination - Physical Exam General: Alert, In no apparent distress, Oriented x3 HEENT: Atraumatic, PERRLA, Mucous membr. moist/pink, EOMI, Sclerae nonicteric Neck: Supple, 2+ carotid pulse no bruit, No LAD, Without JVD or thyroid abnormality Respiratory: Clear to auscultation bilaterally, Normal air movement Cardiovascular: Regular rate/rhythm, Normal S1 S2 Gastrointestinal: Normal bowel sounds, No tenderness Musculoskeletal: No tenderness Integumentary: No rashes Neurological: Normal speech, Normal strength at 5/5 x4 extr, Normal tone, Normal affect - Studies Laboratory Data (last 24 hrs) 12/22/20 23:10: PT 12.5, INR 1.09 12/22/20 23:10: WBC 7.30, Hgb 9.8 L, Hct 30.0 L, Plt Count 243 12/22/20 23:10: Sodium 141, Potassium 3.9, BUN 19 H, Creatinine 1.16, Glucose 168 H, Magnesium 2.0, Total Bilirubin 0.2, AST 11 L, ALT 22, Alkaline Phosphatase 68 Assessment and Plan - Plan Assessment: Chest pain rule out ACS Normocytic anemia Hypertension Hyperlipidemia Hyperglycemia GERD Plan: Chest pain rule out ACS: Trend troponins, monitor on telemetry. Patient reports these episodes are typically associated with palpitations believes that she has paroxysmal atrial fibrillation but this has not been previously diagnosed. Cardiology consult in place, reports last heart catheterization was 7 to 8 years ago. Normocytic anemia: Iron studies ordered, possible anemia of chronic disease. Hypertension: Obtain and continue medications, ordered beta-kristopher at this time Hyperlipidemia: Patient intolerant of statins, lipid panel pending. Hyperglycemia: Mild hyperglycemia, A1c pending GERD: Obtain and continue home medications DVT PPX: Lovenox Code status: Full Discharge Plan: Home Plan to discharge in: 24 Hours - Advance Directives Does patient have a Living Will: No Does patient have a Durable POA for Healthcare: No - Code Status/Comfort Care Code Status Assessed: Yes (Full code) Critical Care: No Time Spent Managing Pts Care (In Minutes): 55
[2020-12-23 04:10] VITALS: TEMP 99.4; O2SAT 96
[2020-12-23 04:13] VITALS: BP 136/64
--- NOTE | 2020-12-23 07:38 | RAD REPORT ---
EXAM DESCRIPTION: RAD - Chest Single View - 12/23/2020 12:19 am CLINICAL HISTORY: CHEST PAIN COMPARISON: Portable June 09 TECHNIQUE: AP portable chest image was obtained 12/23/2020 12:19 am . FINDINGS: No focal mass or consolidation. No significant failure or volume overload. Interstitial pattern is prominent but not different from the prior examination. Trachea is midline. Heart and vasculature are normal. No measurable pleural effusion and no pneumotho rax. No acute bony abnormality seen. No acute aortic findings suspected. IMPRESSION: No acute cardiopulmonary process. No significant change from comparison study.
--- NOTE | 2020-12-25 09:03 | EKG ---
Test Date: 2020-12-23 Test Time: 00:01:27 Lamp Wirer: MEASUREMENT RESULTS: Intervals: Rate: 115 [place]: 190 QRSD: 72 QT: 320 QTc: 442 [place]: P: 96 [place]: 190 QRS: 35 T: 46 INTERPRETIVE STATEMENTS: Sinus tachycardia Possible Inferior infarct, age undetermined Abnormal ECG Compared to ECG 11/10/2019 18:25:12 Myocardial infarct finding now present Sinus rhythm no longer present Electronically Signed On 12-25-20 08:57:54 CDT by Anupam Perry
== END 2020-12-23 03:40 | disposition home or self-care (01) ==
LOC: ER 23:41 → ERHOLD 12-23 02:50 → UNDOADMOB 12-23 02:50 → ER 12-23 03:40
DX: R07.9 Chest pain, unspecified (principal); D64.9 Anemia, unspecified; I10 Essential (primary) hypertension; E78.5 Hyperlipidemia, unspecified; R73.9 Hyperglycemia, unspecified; Z85.828 Personal history of other malignant neoplasm of skin; F17.210 Nicotine dependence, cigarettes, uncomplicated; Z88.0 Allergy status to penicillin; Z88.2 Allergy status to sulfonamides; Z88.5 Allergy status to narcotic agent; Z88.8 Allergy status to other drugs, medicaments and biological substances; Z91.040 Latex allergy status; Z91.048 Other nonmedicinal substance allergy status
CPT/HCPCS: 93005 ×2; 85025; 80048; 36415; 83735; 85610; 80076; 84484; 83880; 71045; 99285; J7040

== ENCOUNTER 2021-01-19 09:00 | Day surgery (SDC) | payer OTHER ==
[2021-01-10 14:35] LABS: Absolute Lymphocytes (CBC) 2.6 K/uL (0.7-4.9); Basophils % 0.2 % (0-1.3); Hematocrit 30.5 % (36.0-45.0); MPV 8.3 fL (7.6-11.3); RBC Red Blood Cell Count 3.66 M/uL (3.86-4.86)
[2021-01-10 14:39] LABS: Protime INR 1.11
[2021-01-10 14:42] LABS: Potassium 4.3 mmol/L (3.5-5.1)
[~2021-01-19 09:00] MED LIST changes: -FENTANYL CITR 100 MCG/2 ML ONE; +HEPA 1000U/500MLS 0 UNIT/0 ML BAG IV ONE; +HEPA 1000U/500MLS 2,000 UNIT/1,000 ML BAG IV ONE; +LIDOCAINE 1% 20 ML MDV ONE; -LIDOCAINE 2% MPF 5 ML VIAL ONE; -MIDAZOLAM HCL 2 MG/2 ML INJ ONE; +NA CHLORIDE 0.9% 500 ML ONE; -ONDANSETRON 4 MG/2 ML VIAL ONE; -PROPOFOL 200 MG/20 ML VIAL IV ONE
[2021-01-19] MEDS ORDERED: VERAPAMIL HCL 10 MG/4 ML VIAL IV ONE (09:15)
[2021-01-19] MEDS ORDERED: ATROPINE SULF 1 MG/10 ML SYR IV ONE (09:15)
[2021-01-19] MEDS ORDERED: FENTANYL CITR 100 MCG/2 ML ONE (09:15)
[2021-01-19] MEDS ORDERED: MIDAZOLAM HCL 2 MG/2 ML INJ ONE (09:15)
[2021-01-19] MEDS ORDERED: HEPARIN 5000 UNIT/ML 1 ML VIAL ONE (09:22)
[2021-01-19 12:26] VITALS: O2SAT 100
[2021-01-19 12:44] VITALS: BP 135/75; TEMP 98
--- NOTE | 2021-01-19 19:55 | OP ---
Date of Procedure: 01/19/2021 Surgeon: ALEXIA GUZMAN Procedure Performed: 1.Selective coronary angiogram. 2.Left heart catheterization. Indication: Unstable angina. Access: Right radial artery 6-Latvian closed with TR band. Complications: None. Bleeding: Minimal. Description Of Procedure: After risks, benefits, alternatives were explained, patient agreed to proc eed and signed informed consent. The patient was brought into cardiac catheterization laboratory, pr epped and draped in usual sterile fashion. We access right radial artery using pediatric micropunctu re kit, placed 6-Latvian slender sheath. Then, took a 5-Latvian tiger 4.0 catheter into the aortic hemanth t, engaged left main, right coronary artery, took standard views and then advanced the catheter over wire across aortic valve into the LV, recorded LVEDP and pullback did not record any gradient. Remov ed the catheter and the sheath, placed TR band with good hemostasis. Findings: 1.Left main is large and normal. 2.LAD large with mild 20% diffuse disease in the midportion, otherwise normal. The rest of the cheri ry and normal diagonal branches. 3.Left circumflex was normal. 4.RCA; large and dominant with 20% disease in the midportion. 5.LVEDP of 20 mmHg. Conclusion: 1.Normal coronary arteries. 2.Elevated LVEDP. Plan: Management of diuretics. SR/MODL Voice ID: [id number] Report ID: [id number]
== END 2021-01-19 12:35 | disposition home or self-care (01) ==
LOC: CCL 09:00
PROVIDERS: ATTEND Internal Medicine
DX: I25.110 Atherosclerotic heart disease of native coronary artery with unstable angina pectoris (principal); I10 Essential (primary) hypertension; R01.1 Cardiac murmur, unspecified; E78.5 Hyperlipidemia, unspecified; F17.210 Nicotine dependence, cigarettes, uncomplicated; Z88.0 Allergy status to penicillin; Z88.2 Allergy status to sulfonamides; Z88.6 Allergy status to analgesic agent; Z88.8 Allergy status to other drugs, medicaments and biological substances; Z20.822 Contact with and (suspected) exposure to COVID-19; Z82.49 Family history of ischemic heart disease and other diseases of the circulatory system
CPT/HCPCS: 85025; 80048; 36415; 85610; 85730; 93458; U0002; C1893; J1644 ×2; J7040; J2250; J3010

== ENCOUNTER 2021-07-15 20:21 | Emergency (ER) | payer OTHER ==
--- OUTSIDE RECORDS SUMMARY | 2021-07-15 20:27 | XMS REPORT | Continuity of Care Document ---
:[address] [facility] [place], [place] Address [address] [place] [address] [address] [place] [address] Care Team Providers Name Role Phone PEREZ, CHAMP Primary Care Physician Unavailable Derek Perez Attending Clinician Unavailable Derek Espino MD Attending Clinician Derek ESPINO Attending Clinician Unavailable Al SOLANO Attending Clinician Unavailable Xiomara ELY, S Attending Clinician Pob, Lab Main Attending Clinician Unavailable 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, Name Attending Clinician Unavailable Lincoln CM Attending Clinician Unavailable Tech, Cardio Vascular Attending Clinician Unavailable Deidra Ramon Attending Clinician Derek ESPINO Admitting Clinician Unavailable Payers Payer Name Policy Type Policy Number Effective Date Expiration Date S ource Problems Condition Condition Condition Status Onset Resolution Last Treating Co mments Source Name Details Category Date Date Treatment Clinician Date Left hand Left hand Disease Active NPI :183 pain pain 6- [id number] 00:00: 00 Allergies, Adverse Reactions, Alerts Allergy Allergy Status Severity Reaction(s) Onset Inactive Treating Comm ents Source Name Type Date Date Clinician Sulfa Propensi Active Diarrhea NPI:18 3 (Sulfona ty to 11-19 [id number] mide adverse 00:00: Antibiot reaction 00 ics) s SULFA Drug Active Diarrhea NPI:183 (SULFONA Class 11-19 [id number] MIDE 00:00: ANTIBIOT 00 ICS) TIZANIDI DRUG Active Anaphylaxis NPI :183 NE HCL INGREDI 912 [id number] 00:00: 00 Tizanidi Propensi Active Anaphylaxis 2018- N PI:183 ne Hcl ty to 11-19 [id number] adverse 00:00: reaction 00 s Codeine Propensi Active Palpitations N PI:183 ty to 08-08 [id number] adverse 00:00: reaction 00 s Meperidi Propensi Active Anaphylaxis N PI:183 ne Hcl ty to 08-08 [id number] adverse 00:00: reaction 00 s CODEINE DRUG Active Palpitations NPI :183 INGREDI 08-08 [id number] 00:00: 00 MEPERIDI DRUG Active Anaphylaxis NPI :183 NE HCL INGREDI 08-08 [id number] 00:00: 00 Zanaflex Adverse Active anaphylaxis 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 Clinician (SIG) Name Name PredniSONE PredniSONE 2019- No Na Perez 2 tablet NPI:174 11-1518 daily x 5 [id number] 00:00: 00:00 days then 00 :00 one tablet daily x 5 days Ipratropium Ipratropium 2020- No Na Perez 2 sprays NPI:174 [place] 10-2816 in each [id number] 00:00: 00:00 nostril 00 :00 Baclofen Baclofen 2020- No Na Perez 1/2 tablet NPI:174 10-10 with food [id number] 00:00: 00:00 or milk 00 :00 Atorvastati Atorvastati 2019- Yes Na Perez 1 tablet NPI:174 n Calcium n Calcium 08-16 [id number] 00:00: 00 zolpidem 10 2020-0 Yes TK 1 T PO N PI:183 mg tablet 2-10 QHS PRN [id number] 00:00: 00 zolpidem 10 2020-0 Yes TK 1 T PO N PI:183 mg tablet 2-10 QHS PRN [id number] 00:00: 00 zolpidem 10 2020-0 Yes TK 1 T PO N PI:183 mg tablet 2-10 QHS PRN [id number] 00:00: 00 zolpidem 10 2020-0 Yes TK 1 T PO N PI:183 mg tablet 2-10 QHS PRN [id number] 00:00: 00 zolpidem 10 2020-0 Yes TK 1 T PO N PI:183 mg tablet 2-10 QHS PRN [id number] 00:00: 00 zolpidem 10 2020-0 Yes TK 1 T PO N PI:183 mg tablet 2-10 QHS PRN [id number] 00:00: 00 zolpidem 10 2020-0 Yes TK 1 T PO N PI:183 mg tablet 2-10 QHS PRN [id number] 00:00: 00 zolpidem 10 2020-0 Yes TK 1 T PO N PI:183 mg tablet 2-10 QHS PRN [id number] 00:00: 00 zolpidem 10 2020-0 Yes TK 1 T PO N PI:183 mg tablet 2-10 QHS PRN [id number] 00:00: 00 zolpidem 10 2020-0 Yes TK 1 T PO N PI:183 mg tablet 2-10 QHS PRN [id number] 00:00: 00 zolpidem 10 2020-0 Yes TK 1 T PO N PI:183 mg tablet 2-10 QHS PRN [id number] 00:00: 00 zolpidem 10 2020-0 Yes TK 1 T PO N PI:183 mg tablet 2-10 QHS PRN [id number] 00:00: 00 zolpidem 10 2020-0 Yes TK 1 T PO N PI:183 mg tablet 2-10 QHS PRN [id number] 00:00: 00 methylPREDN 2019-0 Yes [id number] 84mg Take 21 NPI:183 ISolone 1-21 9102 tablets by [id number] 1 (MEDROL, 00:00: mouth FADI,) 4 mg 00 SEE-INSTRU tablets CTIONS. follow package directions methylPREDN 2019-0 Yes [id number] 84mg Take 21 NPI:183 ISolone 1-21 9102 tablets by [id number] 1 (MEDROL, 00:00: mouth FADI,) 4 mg 00 SEE-INSTRU tablets CTIONS. follow package directions methylPREDN 2020-0 Yes [id number] 84mg Take 21 NPI:183 ISolone 1-21 9102 tablets by [id number] 1 (MEDROL, 00:00: mouth FADI,) 4 mg 00 SEE-INSTRU tablets CTIONS. follow package directions methylPREDN 2020-0 Yes [id number] 84mg Take 21 NPI:183 ISolone 1-21 9102 tablets by [id number] 1 (MEDROL, 00:00: mouth FADI,) 4 mg 00 SEE-INSTRU tablets CTIONS. follow package directions methylPREDN 2020-0 Yes [id number] 84mg Take 21 NPI:183 ISolone 1-21 9102 tablets by [id number] 1 (MEDROL, 00:00: mouth FADI,) 4 mg 00 SEE-INSTRU tablets CTIONS. follow package directions methylPREDN 2020-0 Yes [id number] 84mg Take 21 NPI:183 ISolone 1-21 9102 tablets by [id number] 1 (MEDROL, 00:00: mouth FADI,) 4 mg 00 SEE-INSTRU tablets CTIONS. follow package directions methylPREDN 2020-0 Yes [id number] 84mg Take 21 NPI:183 ISolone 1-21 9102 tablets by [id number] 1 (MEDROL, 00:00: mouth FADI,) 4 mg 00 SEE-INSTRU tablets CTIONS. follow package directions methylPREDN 2020-0 Yes [id number] 84mg Take 21 NPI:183 ISolone 1-21 9102 tablets by [id number] 1 (MEDROL, 00:00: mouth FADI,) 4 mg 00 SEE-INSTRU tablets CTIONS. follow package directions methylPREDN 2020-0 Yes [id number] 84mg Take 21 NPI:183 ISolone 1-21 9102 tablets by [id number] 1 (MEDROL, 00:00: mouth FADI,) 4 mg 00 SEE-INSTRU tablets CTIONS. follow package directions methylPREDN 2020-0 Yes [id number] 84mg Take 21 NPI:183 ISolone 1-21 9102 tablets by [id number] 1 (MEDROL, 00:00: mouth FADI,) 4 mg 00 SEE-INSTRU tablets CTIONS. follow package directions methylPREDN 2020-0 Yes [id number] 84mg Take 21 NPI:183 ISolone 1-21 9102 tablets by [id number] 1 (MEDROL, 00:00: mouth FADI,) 4 mg 00 SEE-INSTRU tablets CTIONS. follow package directions methylPREDN 2020-0 Yes [id number] 84mg Take 21 NPI:183 ISolone 1-21 9102 tablets by [id number] 1 (MEDROL, 00:00: mouth FADI,) 4 mg 00 SEE-INSTRU tablets CTIONS. follow package directions methylPREDN 2020-0 Yes [id number] 84mg Take 21 NPI:183 ISolone 1-21 9102 tablets by [id number] 1 (MEDROL, 00:00: mouth FADI,) 4 mg 00 SEE-INSTRU tablets CTIONS. follow package directions methylPREDN 2020-0 Yes [id number] 84mg Take 21 NPI:183 ISolone 1-21 9102 tablets by [id number] 1 (MEDROL, 00:00: mouth FADI,) 4 mg 00 SEE-INSTRU tablets CTIONS. follow package directions methylPREDN 2020-0 Yes [id number] 84mg Take 21 NPI:183 ISolone 1-21 9102 tablets by [id number] 1 (MEDROL, 00:00: mouth FADI,) 4 mg 00 SEE-INSTRU tablets CTIONS. follow package directions methylPREDN 2020-0 Yes [id number] 84mg Take 21 NPI:183 ISolone 1-21 9102 tablets by [id number] 1 (MEDROL, 00:00: mouth FADI,) 4 mg 00 SEE-INSTRU tablets CTIONS. follow package directions methylPREDN 2020-0 Yes [id number] 84mg Take 21 NPI:183 ISolone 1-21 9102 tablets by [id number] 1 (MEDROL, 00:00: mouth FADI,) 4 mg 00 SEE-INSTRU tablets CTIONS. follow package directions triamcinolo 2020-0 2020- No 40mg NPI:1 83 ne 03-23 [id number] acetonide 20:30: 19:30 (KENALOG) 00 :00 injection 40 mg triamcinolo 2020-0 2020- No 40mg 40 mg, NPI :183 ne 03-23 Intra-malissa [id number] acetonide 20:30: 19:30 cular, (KENALOG) 00 :00 ONCE, 1 injection dose, Tue 40 mg 03/23/19 at 1430, Routine triamcinolo 2019- 2020- No 40mg NPI:1 83 ne 03-23 [id number] acetonide 20:30: 19:30 (KENALOG) 00 :00 injection 40 mg triamcinolo 2019- 2020- No 40mg 40 mg, NPI :183 ne 03-23 Intra-malissa [id number] acetonide 20:30: 19:30 cular, (KENALOG) 00 :00 ONCE, 1 injection dose, Tue 40 mg 03/23/19 at 1430, Routine Amlodipine- 2018-03 Yes TK 1 T PO N PI:183 Olmesartan 2-24 D [id number] 10-20 mg 00:00: Tab 00 Amlodipine- 2019-1 Yes TK 1 T PO N PI:183 Olmesartan 2-24 D [id number] 10-20 mg 00:00: Tab 00 Amlodipine- 2019-1 Yes TK 1 T PO N PI:183 Olmesartan 2-24 D [id number] 10-20 mg 00:00: Tab 00 Amlodipine- 2019-1 Yes TK 1 T PO N PI:183 Olmesartan 2-24 D [id number] 10-20 mg 00:00: Tab 00 Amlodipine- 2019-1 Yes TK 1 T PO N PI:183 Olmesartan 2-24 D [id number] 10-20 mg 00:00: Tab 00 Amlodipine- 2019-1 Yes TK 1 T PO N PI:183 Olmesartan 2-24 D [id number] 10-20 mg 00:00: Tab 00 Amlodipine- 2019-1 Yes TK 1 T PO N PI:183 Olmesartan 2-24 D [id number] 10-20 mg 00:00: Tab 00 Amlodipine- 2019-1 Yes TK 1 T PO N PI:183 Olmesartan 2-24 D [id number] 10-20 mg 00:00: Tab 00 Amlodipine- 2019-1 Yes TK 1 T PO N PI:183 Olmesartan 2-24 D [id number] 10-20 mg 00:00: Tab 00 Amlodipine- 2019-1 Yes TK 1 T PO N PI:183 Olmesartan 2-24 D [id number] 10-20 mg 00:00: Tab 00 Amlodipine- 2019- Yes TK 1 T PO N PI:183 Olmesartan 2-24 D [id number] 10-20 mg 00:00: Tab 00 Amlodipine- 2018- Yes TK 1 T PO N PI:183 Olmesartan 2-24 D [id number] 10-20 mg 00:00: Tab 00 Amlodipine- 2018-03 Yes TK 1 T PO N PI:183 Olmesartan 2-24 D [id number] 10-20 mg 00:00: Tab 00 omeprazole 2019- Yes NPI:183 40 mg 2-23 [id number] capsule 00:00: 00 omeprazole 2018- Yes NPI:183 40 mg 2-23 [id number] capsule 00:00: 00 omeprazole 2019- Yes NPI:183 40 mg 2-23 [id number] capsule 00:00: 00 omeprazole 2019- Yes NPI:183 40 mg 2-23 [id number] capsule 00:00: 00 omeprazole 2019- Yes NPI:183 40 mg 2-23 [id number] capsule 00:00: 00 omeprazole 2019- Yes NPI:183 40 mg 2-23 [id number] capsule 00:00: 00 omeprazole 2019- Yes NPI:183 40 mg 2-23 [id number] capsule 00:00: 00 omeprazole 2019- Yes NPI:183 40 mg 2-23 [id number] capsule 00:00: 00 omeprazole 2019- Yes NPI:183 40 mg 2-23 [id number] capsule 00:00: 00 omeprazole 2019- Yes NPI:183 40 mg 2-23 [id number] capsule 00:00: 00 omeprazole 2019- Yes NPI:183 40 mg 2-23 [id number] capsule 00:00: 00 omeprazole 2019- Yes NPI:183 40 mg 2-23 [id number] capsule 00:00: 00 omeprazole 2019- Yes NPI:183 40 mg 2-23 [id number] capsule 00:00: 00 dexamethaso 2019-0 2019- No 10mg 10 mg, NPI :183 ne 11-20 Oral, [id number] (DECADRON) 03:15: 02:16 ONCE, 1 injection 00 :00 dose, Maribel 10 mg 11/19/18 at 2215, Routine HYDROcodone 2018- 2019- No 1{tbl} 1 tablet, NPI:183 -acetaminop -13 09-13 Oral, ONCE 1 [id number] hen (NORCO) 03:15: 02:04 NOW, 1 10-325 mg 00 :00 dose, Maribel tablet 1 11/19/18 at tablet 2215, Routine naproxen 2018- Yes [id number] 250mg Take 1 NPI:183 250 mg 9-12 380975 tablet by [id number] 1 tablet 00:00: mouth 2 00 (two) times daily with meals. pentazocine Yes [id number] 1{tbl} Take 1 NPI:183 -naloxone 9-12 479530 tablet by 131 8781 50-0.5 mg 00:00: mouth tablet 00 every 6 (six) hours as needed for Pain. cyclobenzap Yes [id number] 5mg Take 1 NPI:183 rine 5 mg 9-12 875306 tablet by 131 8781 tablet 00:00: mouth at 00 bedtime. naproxen Yes [id number] 250mg Take 1 NPI:183 250 mg 9-12 243219 tablet by [id number] 1 tablet 00:00: mouth 2 00 (two) times daily with meals. pentazocine Yes [id number] 1{tbl} Take 1 NPI:183 -naloxone 9-12 006407 tablet by 131 8781 50-0.5 mg 00:00: mouth tablet 00 every 6 (six) hours as needed for Pain. cyclobenzap Yes [id number] 5mg Take 1 NPI:183 rine 5 mg 9-12 237680 tablet by 131 8781 tablet 00:00: mouth at 00 bedtime. naproxen 2019- Yes [id number] 250mg Take 1 NPI:183 250 mg 9-12 504942 tablet by [id number] 1 tablet 00:00: mouth 2 00 (two) times daily with meals. pentazocine 2018- Yes [id number] 1{tbl} Take 1 NPI:183 -naloxone 9-12 847576 tablet by 131 8781 50-0.5 mg 00:00: mouth tablet 00 every 6 (six) hours as needed for Pain. cyclobenzap 2018- Yes [id number] 5mg Take 1 NPI:183 rine 5 mg 9-12 151278 tablet by 131 8781 tablet 00:00: mouth at 00 bedtime. naproxen 2019- Yes [id number] 250mg Take 1 NPI:183 250 mg 9-12 808457 tablet by [id number] 1 tablet 00:00: mouth 2 00 (two) times daily with meals. pentazocine Yes [id number] 1{tbl} Take 1 NPI:183 -naloxone 9-12 022159 tablet by 131 8781 50-0.5 mg 00:00: mouth tablet 00 every 6 (six) hours as needed for Pain. cyclobenzap 2018- Yes [id number] 5mg Take 1 NPI:183 rine 5 mg 9-12 030955 tablet by 131 8781 tablet 00:00: mouth at 00 bedtime. naproxen 2018- Yes [id number] 250mg Take 1 NPI:183 250 mg 9-12 787738 tablet by [id number] 1 tablet 00:00: mouth 2 00 (two) times daily with meals. pentazocine Yes [id number] 1{tbl} Take 1 NPI:183 -naloxone 9-12 675224 tablet by 131 8781 50-0.5 mg 00:00: mouth tablet 00 every 6 (six) hours as needed for Pain. cyclobenzap Yes [id number] 5mg Take 1 NPI:183 rine 5 mg 9-12 556635 tablet by 131 8781 tablet 00:00: mouth at 00 bedtime. naproxen Yes [id number] 250mg Take 1 NPI:183 250 mg 9-12 706039 tablet by [id number] 1 tablet 00:00: mouth 2 00 (two) times daily with meals. naproxen 2018- Yes [id number] 250mg Take 1 NPI:183 250 mg 9-12 360084 tablet by [id number] 1 tablet 00:00: mouth 2 00 (two) times daily with meals. pentazocine 2018- Yes [id number] 1{tbl} Take 1 NPI:183 -naloxone 9-12 292667 tablet by 131 8781 50-0.5 mg 00:00: mouth tablet 00 every 6 (six) hours as needed for Pain. cyclobenzap 2018- Yes [id number] 5mg Take 1 NPI:183 rine 5 mg 9-12 193711 tablet by 131 8781 tablet 00:00: mouth at 00 bedtime. pentazocine 2019- Yes [id number] 1{tbl} Take 1 NPI:183 -naloxone 9-12 102844 tablet by 131 8781 50-0.5 mg 00:00: mouth tablet 00 every 6 (six) hours as needed for Pain. naproxen 2019- Yes [id number] 250mg Take 1 NPI:183 250 mg 9-12 099817 tablet by [id number] 1 tablet 00:00: mouth 2 00 (two) times daily with meals. pentazocine 2018- Yes [id number] 1{tbl} Take 1 NPI:183 -naloxone 9-12 296403 tablet by 131 8781 50-0.5 mg 00:00: mouth tablet 00 every 6 (six) hours as needed for Pain. cyclobenzap 2018- Yes [id number] 5mg Take 1 NPI:183 rine 5 mg 9-12 096145 tablet by 131 8781 tablet 00:00: mouth at 00 bedtime. naproxen 2019- Yes [id number] 250mg Take 1 NPI:183 250 mg 9-12 910328 tablet by [id number] 1 tablet 00:00: mouth 2 00 (two) times daily with meals. pentazocine 2018- Yes [id number] 1{tbl} Take 1 NPI:183 -naloxone 9-12 709754 tablet by 131 8781 50-0.5 mg 00:00: mouth tablet 00 every 6 (six) hours as needed for Pain. cyclobenzap 2018- Yes [id number] 5mg Take 1 NPI:183 rine 5 mg 9-12 479667 tablet by 131 8781 tablet 00:00: mouth at 00 bedtime. cyclobenzap 2019-0 Yes [id number] 5mg Take 1 NPI:183 rine 5 mg 9-12 254195 tablet by 131 8781 tablet 00:00: mouth at 00 bedtime. naproxen 2019-0 Yes [id number] 250mg Take 1 NPI:183 250 mg 9-12 180223 tablet by [id number] 1 tablet 00:00: mouth 2 00 (two) times daily with meals. pentazocine 2019- Yes [id number] 1{tbl} Take 1 NPI:183 -naloxone 9-12 193607 tablet by 131 8781 50-0.5 mg 00:00: mouth tablet 00 every 6 (six) hours as needed for Pain. cyclobenzap 2019-0 Yes [id number] 5mg Take 1 NPI:183 rine 5 mg 9-12 965681 tablet by 131 8781 tablet 00:00: mouth at 00 bedtime. naproxen 2019-0 Yes [id number] 250mg Take 1 NPI:183 250 mg 9-12 176918 tablet by [id number] 1 tablet 00:00: mouth 2 00 (two) times daily with meals. pentazocine 2019-0 Yes [id number] 1{tbl} Take 1 NPI:183 -naloxone 9-12 894508 tablet by 131 8781 50-0.5 mg 00:00: mouth tablet 00 every 6 (six) hours as needed for Pain. cyclobenzap Yes [id number] 5mg Take 1 NPI:183 rine 5 mg 9-12 301909 tablet by 131 8781 tablet 00:00: mouth at 00 bedtime. naproxen 2019- Yes [id number] 250mg Take 1 NPI:183 250 mg 9-12 148407 tablet by [id number] 1 tablet 00:00: mouth 2 00 (two) times daily with meals. pentazocine 2019-0 Yes [id number] 1{tbl} Take 1 NPI:183 -naloxone 9-12 473767 tablet by 131 8781 50-0.5 mg 00:00: mouth tablet 00 every 6 (six) hours as needed for Pain. cyclobenzap 2019-0 Yes [id number] 5mg Take 1 NPI:183 rine 5 mg 9-12 427133 tablet by 131 8781 tablet 00:00: mouth at 00 bedtime. naproxen 2019-0 Yes [id number] 250mg Take 1 NPI:183 250 mg 9-12 669528 tablet by [id number] 1 tablet 00:00: mouth 2 00 (two) times daily with meals. pentazocine 2019-0 Yes [id number] 1{tbl} Take 1 NPI:183 -naloxone 9-12 339914 tablet by 131 8781 50-0.5 mg 00:00: mouth tablet 00 every 6 (six) hours as needed for Pain. cyclobenzap 2019- Yes [id number] 5mg Take 1 NPI:183 rine 5 mg 9-12 246489 tablet by 131 8781 tablet 00:00: mouth at 00 bedtime. naproxen 2019- Yes [id number] 250mg Take 1 NPI:183 250 mg 9-12 428098 tablet by [id number] 1 tablet 00:00: mouth 2 00 (two) times daily with meals. pentazocine 2019- Yes [id number] 1{tbl} Take 1 NPI:183 -naloxone 9-12 245349 tablet by 131 8781 50-0.5 mg 00:00: mouth tablet 00 every 6 (six) hours as needed for Pain. cyclobenzap 2019- Yes [id number] 5mg Take 1 NPI:183 rine 5 mg 9-12 202385 tablet by 131 8781 tablet 00:00: mouth at 00 bedtime. naproxen 2018- Yes [id number] 250mg Take 1 NPI:183 250 mg 9-12 835481 tablet by [id number] 1 tablet 00:00: mouth 2 00 (two) times daily with meals. pentazocine 2018- Yes [id number] 1{tbl} Take 1 NPI:183 -naloxone 9-12 737677 tablet by 131 8781 50-0.5 mg 00:00: mouth tablet 00 every 6 (six) hours as needed for Pain. cyclobenzap 2018- Yes [id number] 5mg Take 1 NPI:183 rine 5 mg 9-12 726275 tablet by 131 8781 tablet 00:00: mouth at 00 bedtime. naproxen 2019- Yes [id number] 250mg Take 1 NPI:183 250 mg 9-12 433325 tablet by 137340 1 tablet 00:00: mouth 2 00 (two) times daily with meals. pentazocine 2019- Yes [id number] 1{tbl} Take 1 NPI:183 -naloxone 9-12 266655 tablet by 131 8781 50-0.5 mg 00:00: mouth tablet 00 every 6 (six) hours as needed for Pain. cyclobenzap 2018-0 Yes [id number] 5mg Take 1 NPI:183 rine 5 mg 9-12 261300 tablet by 131 8781 tablet 00:00: mouth at 00 bedtime. naproxen 2019- Yes [id number] 250mg Take 1 NPI:183 250 mg 9-12 450167 tablet by [id number] 1 tablet 00:00: mouth 2 00 (two) times daily with meals. pentazocine 2019- Yes [id number] 1{tbl} Take 1 NPI:183 -naloxone 9-12 604775 tablet by 131 8781 50-0.5 mg 00:00: mouth tablet 00 every 6 (six) hours as needed for Pain. cyclobenzap 2019- Yes [id number] 5mg Take 1 NPI:183 rine 5 mg 9-12 171395 tablet by 131 8781 tablet 00:00: mouth at 00 bedtime. naproxen 2019- Yes [id number] 250mg Take 1 NPI:183 250 mg 9-12 740101 tablet by [id number] 1 tablet 00:00: mouth 2 00 (two) times daily with meals. pentazocine 2018- Yes [id number] 1{tbl} Take 1 NPI:183 -naloxone 9-12 531926 tablet by 131 8781 50-0.5 mg 00:00: mouth tablet 00 every 6 (six) hours as needed for Pain. cyclobenzap 2018- Yes [id number] 5mg Take 1 NPI:183 rine 5 mg 9-12 846063 tablet by 131 8781 tablet 00:00: mouth at 00 bedtime. naproxen 2019- Yes [id number] 250mg Take 1 NPI:183 250 mg 9-12 013669 tablet by [id number] 1 tablet 00:00: mouth 2 00 (two) times daily with meals. pentazocine 2018- Yes [id number] 1{tbl} Take 1 NPI:183 -naloxone 9-12 893347 tablet by 131 8781 50-0.5 mg 00:00: mouth tablet 00 every 6 (six) hours as needed for Pain. cyclobenzap Yes [id number] 5mg Take 1 NPI:183 rine 5 mg 9-12 782954 tablet by 131 8781 tablet 00:00: mouth at 00 bedtime. naproxen 2019-0 Yes [id number] 250mg Take 1 NPI:183 250 mg 9-12 932176 tablet by [id number] 1 tablet 00:00: mouth 2 00 (two) times daily with meals. pentazocine 2019- Yes [id number] 1{tbl} Take 1 NPI:183 -naloxone 9-12 075596 tablet by 131 8781 50-0.5 mg 00:00: mouth tablet 00 every 6 (six) hours as needed for Pain. cyclobenzap 2019-0 Yes [id number] 5mg Take 1 NPI:183 rine 5 mg 9-12 296978 tablet by 131 8781 tablet 00:00: mouth at 00 bedtime. naproxen 2019-0 Yes [id number] 250mg Take 1 NPI:183 250 mg 9-12 724094 tablet by [id number] 1 tablet 00:00: mouth 2 00 (two) times daily with meals. pentazocine 2019-0 Yes [id number] 1{tbl} Take 1 NPI:183 -naloxone 9-12 864979 tablet by 131 8781 50-0.5 mg 00:00: mouth tablet 00 every 6 (six) hours as needed for Pain. cyclobenzap Yes [id number] 5mg Take 1 NPI:183 rine 5 mg 9-12 308226 tablet by 131 8781 tablet 00:00: mouth at 00 bedtime. naproxen 2019- Yes [id number] 250mg Take 1 NPI:183 250 mg 9-12 699622 tablet by 079659 1 tablet 00:00: mouth 2 00 (two) times daily with meals. pentazocine 2019-0 Yes [id number] 1{tbl} Take 1 NPI:183 -naloxone 9-12 306197 tablet by 131 8781 50-0.5 mg 00:00: mouth tablet 00 every 6 (six) hours as needed for Pain. cyclobenzap 2019-0 Yes [id number] 5mg Take 1 NPI:183 rine 5 mg 9-12 402595 tablet by 131 8781 tablet 00:00: mouth at 00 bedtime. naproxen 2019-0 Yes [id number] 250mg Take 1 NPI:183 250 mg 9-12 864212 tablet by [id number] 1 tablet 00:00: mouth 2 00 (two) times daily with meals. pentazocine 2019-0 Yes [id number] 1{tbl} Take 1 NPI:183 -naloxone 9-12 850093 tablet by 131 8781 50-0.5 mg 00:00: mouth tablet 00 every 6 (six) hours as needed for Pain. cyclobenzap 2019- Yes [id number] 5mg Take 1 NPI:183 rine 5 mg 9-12 966599 tablet by 131 8781 tablet 00:00: mouth at 00 bedtime. naproxen 2019- Yes [id number] 250mg Take 1 NPI:183 250 mg 9-12 705579 tablet by [id number] 1 tablet 00:00: mouth 2 00 (two) times daily with meals. pentazocine 2019- Yes [id number] 1{tbl} Take 1 NPI:183 -naloxone 9-12 785643 tablet by 131 8781 50-0.5 mg 00:00: mouth tablet 00 every 6 (six) hours as needed for Pain. cyclobenzap 2019- Yes [id number] 5mg Take 1 NPI:183 rine 5 mg 9-12 272728 tablet by 131 8781 tablet 00:00: mouth at 00 bedtime. naproxen 2018- Yes [id number] 250mg Take 1 NPI:183 250 mg 9-12 343100 tablet by [id number] 1 tablet 00:00: mouth 2 00 (two) times daily with meals. pentazocine 2018- Yes [id number] 1{tbl} Take 1 NPI:183 -naloxone 9-12 613619 tablet by 131 8781 50-0.5 mg 00:00: mouth tablet 00 every 6 (six) hours as needed for Pain. cyclobenzap 2018- Yes [id number] 5mg Take 1 NPI:183 rine 5 mg 9-12 132908 tablet by 131 8781 tablet 00:00: mouth at 00 bedtime. naproxen 2019- Yes [id number] 250mg Take 1 NPI:183 250 mg 9-12 534909 tablet by [id number] 1 tablet 00:00: mouth 2 00 (two) times daily with meals. pentazocine 2019- Yes [id number] 1{tbl} Take 1 NPI:183 -naloxone 9-12 822233 tablet by 131 8781 50-0.5 mg 00:00: mouth tablet 00 every 6 (six) hours as needed for Pain. cyclobenzap 2018-0 Yes [id number] 5mg Take 1 NPI:183 rine 5 mg 9-12 222247 tablet by 131 8781 tablet 00:00: mouth at 00 bedtime. naproxen 2019- Yes [id number] 250mg Take 1 NPI:183 250 mg 9-12 196789 tablet by [id number] 1 tablet 00:00: mouth 2 00 (two) times daily with meals. pentazocine 2019-0 Yes [id number] 1{tbl} Take 1 NPI:183 -naloxone 11-19 150550 tablet by 131 8781 50-0.5 mg 00:00: mouth tablet 00 every 6 (six) hours as needed for Pain. cyclobenzap 2019- Yes [id number] 5mg Take 1 NPI:183 rine 5 mg 11-19 284318 tablet by 131 8781 tablet 00:00: mouth at 00 bedtime. acetaminoph 2019-0 2019- No [id number] 650mg Take 2 NPI:183 en 11-19 796960 tablets by [id number] 1 (TYLENOL) 00:00: 04:59 mouth 4 325 mg 00 :00 (four) tablet times daily for 5 days. This is the maximum safe dose for a healthy adult. OMEPRAZOLE 2015- Yes Take by NPI :183 MAGNESIUM 6-01 mouth. [id number] (PRILOSEC 19:24: OTC ORAL) 51 selexipag 2015-0 Yes Take by NPI: 183 (UPTRAVI) 6-01 mouth. [id number] 1,000 mcg 19:24: Tab 51 CITALOPRAM 2015-0 Yes Take by NPI :183 HYDROBROMID 6-01 mouth. [id number] 1 E (CELEXA 19:24: ORAL) 51 CARVEDILOL 2015-0 Yes Take by NPI :183 ORAL 6-01 mouth. [id number] 19:24: 51 OMEPRAZOLE 2015-0 Yes Take by NPI :183 MAGNESIUM 6-01 mouth. [id number] (PRILOSEC 19:24: OTC ORAL) 51 selexipag 2016-0 Yes Take by NPI: 183 (UPTRAVI) 6-01 mouth. [id number] 1,000 mcg 19:24: Tab 51 CITALOPRAM 2016-0 Yes Take by NPI :183 HYDROBROMID 6-01 mouth. [id number] 1 E (CELEXA 19:24: ORAL) 51 CARVEDILOL 2015-0 Yes Take by NPI :183 ORAL 6-01 mouth. [id number] 19:24: 51 OMEPRAZOLE 2016-0 Yes Take by NPI :183 MAGNESIUM 6-01 mouth. [id number] (PRILOSEC 19:24: OTC ORAL) 51 selexipag 2016-0 Yes Take by NPI: 183 (UPTRAVI) 6-01 mouth. [id number] 1,000 mcg 19:24: Tab 51 CITALOPRAM 2016-0 Yes Take by NPI :183 HYDROBROMID 6-01 mouth. [id number] 1 E (CELEXA 19:24: ORAL) 51 CARVEDILOL 2016-0 Yes Take by NPI :183 ORAL 6-01 mouth. [id number] 19:24: 51 OMEPRAZOLE 2016-0 Yes Take by NPI :183 MAGNESIUM 6-01 mouth. [id number] (PRILOSEC 19:24: OTC ORAL) 51 OMEPRAZOLE 2016-0 Yes Take by NPI :183 MAGNESIUM 6-01 mouth. [id number] (PRILOSEC 19:24: OTC ORAL) 51 selexipag 2016-0 Yes Take by NPI: 183 (UPTRAVI) 6-01 mouth. [id number] 1,000 mcg 19:24: Tab 51 CITALOPRAM 2016-0 Yes Take by NPI :183 HYDROBROMID 6-01 mouth. [id number] 1 E (CELEXA 19:24: ORAL) 51 CARVEDILOL 2016-0 Yes Take by NPI :183 ORAL 6-01 mouth. [id number] 19:24: 51 selexipag 2016-0 Yes Take by NPI: 183 (UPTRAVI) 6-01 mouth. [id number] 1,000 mcg 19:24: Tab 51 OMEPRAZOLE 2016-0 Yes Take by NPI :183 MAGNESIUM 6-01 mouth. [id number] (PRILOSEC 19:24: OTC ORAL) 51 CITALOPRAM 2016-0 Yes Take by NPI :183 HYDROBROMID 6-01 mouth. 469824 1 E (CELEXA 19:24: ORAL) 51 selexipag 2016-0 Yes Take by NPI: 183 (UPTRAVI) 6-01 mouth. [id number] 1,000 mcg 19:24: Tab 51 CITALOPRAM 2016-0 Yes Take by NPI :183 HYDROBROMID 6-01 mouth. [id number] 1 E (CELEXA 19:24: ORAL) 51 CARVEDILOL 2016-0 Yes Take by NPI :183 ORAL 6-01 mouth. [id number] 19:24: 51 CARVEDILOL 2016-0 Yes Take by NPI :183 ORAL 6-01 mouth. [id number] 19:24: 51 OMEPRAZOLE 2016-0 Yes Take by NPI :183 MAGNESIUM 6-01 mouth. [id number] (PRILOSEC 19:24: OTC ORAL) 51 selexipag 2016-0 Yes Take by NPI: 183 (UPTRAVI) 6-01 mouth. [id number] 1,000 mcg 19:24: Tab 51 CITALOPRAM 2016-0 Yes Take by NPI :183 HYDROBROMID 6-01 mouth. 239069 1 E (CELEXA 19:24: ORAL) 51 CARVEDILOL 2016-0 Yes Take by NPI :183 ORAL 6-01 mouth. [id number] 19:24: 51 OMEPRAZOLE 2016-0 Yes Take by NPI :183 MAGNESIUM 6-01 mouth. [id number] (PRILOSEC 19:24: OTC ORAL) 51 selexipag 2016-0 Yes Take by NPI: 183 (UPTRAVI) 6-01 mouth. [id number] 1,000 mcg 19:24: Tab 51 CITALOPRAM 2016-0 Yes Take by NPI :183 HYDROBROMID 6-01 mouth. [id number] 1 E (CELEXA 19:24: ORAL) 51 CARVEDILOL 2016-0 Yes Take by NPI :183 ORAL 6-01 mouth. [id number] 19:24: 51 OMEPRAZOLE 2016-0 Yes Take by NPI :183 MAGNESIUM 6-01 mouth. [id number] (PRILOSEC 19:24: OTC ORAL) 51 selexipag 2016-0 Yes Take by NPI: 183 (UPTRAVI) 6-01 mouth. [id number] 1,000 mcg 19:24: Tab 51 CITALOPRAM 2016-0 Yes Take by NPI :183 HYDROBROMID 6-01 mouth. 131947 1 E (CELEXA 19:24: ORAL) 51 CARVEDILOL 2016-0 Yes Take by NPI :183 ORAL 6-01 mouth. [id number] 19:24: 51 OMEPRAZOLE 2016-0 Yes Take by NPI :183 MAGNESIUM 6-01 mouth. [id number] (PRILOSEC 19:24: OTC ORAL) 51 selexipag 2016-0 Yes Take by NPI: 183 (UPTRAVI) 6-01 mouth. [id number] 1,000 mcg 19:24: Tab 51 CITALOPRAM 2016-0 Yes Take by NPI :183 HYDROBROMID 6-01 mouth. [id number] 1 E (CELEXA 19:24: ORAL) 51 CARVEDILOL 2016-0 Yes Take by NPI :183 ORAL 6-01 mouth. [id number] 19:24: 51 OMEPRAZOLE 2016-0 Yes Take by NPI :183 MAGNESIUM 6-01 mouth. [id number] (PRILOSEC 19:24: OTC ORAL) 51 selexipag 2016-0 Yes Take by NPI: 183 (UPTRAVI) 6-01 mouth. [id number] 1,000 mcg 19:24: Tab 51 CITALOPRAM 2016-0 Yes Take by NPI :183 HYDROBROMID 6-01 mouth. 868566 1 E (CELEXA 19:24: ORAL) 51 CARVEDILOL 2016-0 Yes Take by NPI :183 ORAL 6-01 mouth. [id number] 19:24: 51 OMEPRAZOLE 2016-0 Yes Take by NPI :183 MAGNESIUM 6-01 mouth. [id number] (PRILOSEC 19:24: OTC ORAL) 51 selexipag 2016-0 Yes Take by NPI: 183 (UPTRAVI) 6-01 mouth. [id number] 1,000 mcg 19:24: Tab 51 CITALOPRAM 2016-0 Yes Take by NPI :183 HYDROBROMID 6-01 mouth. [id number] 1 E (CELEXA 19:24: ORAL) 51 CARVEDILOL 2016-0 Yes Take by NPI :183 ORAL 6-01 mouth. [id number] 19:24: 51 OMEPRAZOLE 2016-0 Yes Take by NPI :183 MAGNESIUM 6-01 mouth. [id number] (PRILOSEC 19:24: OTC ORAL) 51 selexipag 2016-0 Yes Take by NPI: 183 (UPTRAVI) 6-01 mouth. [id number] 1,000 mcg 19:24: Tab 51 CITALOPRAM 2016-0 Yes Take by NPI :183 HYDROBROMID 6-01 mouth. [id number] 1 E (CELEXA 19:24: ORAL) 51 CARVEDILOL 2016-0 Yes Take by NPI :183 ORAL 6-01 mouth. [id number] 19:24: 51 OMEPRAZOLE 2016-0 Yes Take by NPI :183 MAGNESIUM 6-01 mouth. [id number] (PRILOSEC 19:24: OTC ORAL) 51 selexipag 2016-0 Yes Take by NPI: 183 (UPTRAVI) 6-01 mouth. [id number] 1,000 mcg 19:24: Tab 51 CITALOPRAM 2016-0 Yes Take by NPI :183 HYDROBROMID 6-01 mouth. [id number] 1 E (CELEXA 19:24: ORAL) 51 CARVEDILOL 2016-0 Yes Take by NPI :183 ORAL 6-01 mouth. [id number] 19:24: 51 OMEPRAZOLE 2016-0 Yes Take by NPI :183 MAGNESIUM 6-01 mouth. [id number] (PRILOSEC 19:24: OTC ORAL) 51 selexipag 2016-0 Yes Take by NPI: 183 (UPTRAVI) 6-01 mouth. [id number] 1,000 mcg 19:24: Tab 51 CITALOPRAM 2016-0 Yes Take by NPI :183 HYDROBROMID 6-01 mouth. [id number] 1 E (CELEXA 19:24: ORAL) 51 CARVEDILOL 2016-0 Yes Take by NPI :183 ORAL 6-01 mouth. [id number] 19:24: 51 OMEPRAZOLE 2016-0 Yes Take by NPI :183 MAGNESIUM 6-01 mouth. [id number] (PRILOSEC 19:24: OTC ORAL) 51 selexipag 2016-0 Yes Take by NPI: 183 (UPTRAVI) 6-01 mouth. [id number] 1,000 mcg 19:24: Tab 51 CITALOPRAM 2016-0 Yes Take by NPI :183 HYDROBROMID 6-01 mouth. [id number] 1 E (CELEXA 19:24: ORAL) 51 CARVEDILOL 2016-0 Yes Take by NPI :183 ORAL 6-01 mouth. [id number] 19:24: 51 OMEPRAZOLE 2016-0 Yes Take by NPI :183 MAGNESIUM 6-01 mouth. [id number] (PRILOSEC 19:24: OTC ORAL) 51 selexipag 2016-0 Yes Take by NPI: 183 (UPTRAVI) 6-01 mouth. [id number] 1,000 mcg 19:24: Tab 51 CITALOPRAM 2016-0 Yes Take by NPI :183 HYDROBROMID 6-01 mouth. 146285 1 E (CELEXA 19:24: ORAL) 51 CARVEDILOL 2016-0 Yes Take by NPI :183 ORAL 6-01 mouth. [id number] 19:24: 51 OMEPRAZOLE 2016-0 Yes Take by NPI :183 MAGNESIUM 6-01 mouth. [id number] (PRILOSEC 19:24: OTC ORAL) 51 selexipag 2016-0 Yes Take by NPI: 183 (UPTRAVI) 6-01 mouth. [id number] 1,000 mcg 19:24: Tab 51 CITALOPRAM 2016-0 Yes Take by NPI :183 HYDROBROMID 6-01 mouth. [id number] 1 E (CELEXA 19:24: ORAL) 51 CARVEDILOL 2016-0 Yes Take by NPI :183 ORAL 6-01 mouth. [id number] 19:24: 51 OMEPRAZOLE 2016-0 Yes Take by NPI :183 MAGNESIUM 6-01 mouth. [id number] (PRILOSEC 19:24: OTC ORAL) 51 selexipag 2016-0 Yes Take by NPI: 183 (UPTRAVI) 6-01 mouth. [id number] 1,000 mcg 19:24: Tab 51 CITALOPRAM 2016-0 Yes Take by NPI :183 HYDROBROMID 6-01 mouth. [id number] 1 E (CELEXA 19:24: ORAL) 51 CARVEDILOL 2016-0 Yes Take by NPI :183 ORAL 6-01 mouth. [id number] 19:24: 51 OMEPRAZOLE 2016-0 Yes Take by NPI :183 MAGNESIUM 6-01 mouth. [id number] (PRILOSEC 19:24: OTC ORAL) 51 selexipag 2016-0 Yes Take by NPI: 183 (UPTRAVI) 6-01 mouth. [id number] 1,000 mcg 19:24: Tab 51 CITALOPRAM 2016-0 Yes Take by NPI :183 HYDROBROMID 6-01 mouth. [id number] 1 E (CELEXA 19:24: ORAL) 51 CARVEDILOL 2016-0 Yes Take by NPI :183 ORAL 6-01 mouth. [id number] 19:24: 51 OMEPRAZOLE 2016-0 Yes Take by NPI :183 MAGNESIUM 6-01 mouth. [id number] (PRILOSEC 19:24: OTC ORAL) 51 selexipag 2016-0 Yes Take by NPI: 183 (UPTRAVI) 6-01 mouth. [id number] 1,000 mcg 19:24: Tab 51 CITALOPRAM 2016-0 Yes Take by NPI :183 HYDROBROMID 6-01 mouth. 041714 1 E (CELEXA 19:24: ORAL) 51 CARVEDILOL 2016-0 Yes Take by NPI :183 ORAL 6-01 mouth. [id number] 19:24: 51 OMEPRAZOLE 2016-0 Yes Take by NPI :183 MAGNESIUM 6-01 mouth. [id number] (PRILOSEC 19:24: OTC ORAL) 51 selexipag 2016-0 Yes Take by NPI: 183 (UPTRAVI) 6-01 mouth. [id number] 1,000 mcg 19:24: Tab 51 CITALOPRAM 2016-0 Yes Take by NPI :183 HYDROBROMID 6-01 mouth. 616037 1 E (CELEXA 19:24: ORAL) 51 CARVEDILOL 2016-0 Yes Take by NPI :183 ORAL 6-01 mouth. [id number] 19:24: 51 OMEPRAZOLE 2016-0 Yes Take by NPI :183 MAGNESIUM 6-01 mouth. [id number] (PRILOSEC 19:24: OTC ORAL) 51 selexipag 2016-0 Yes Take by NPI: 183 (UPTRAVI) 6-01 mouth. [id number] 1,000 mcg 19:24: Tab 51 CITALOPRAM 2016-0 Yes Take by NPI :183 HYDROBROMID 6-01 mouth. [id number] 1 E (CELEXA 19:24: ORAL) 51 CARVEDILOL 2016-0 Yes Take by NPI :183 ORAL 6-01 mouth. [id number] 19:24: 51 OMEPRAZOLE 2016-0 Yes Take by NPI :183 MAGNESIUM 6-01 mouth. [id number] (PRILOSEC 19:24: OTC ORAL) 51 selexipag 2016-0 Yes Take by NPI: 183 (UPTRAVI) 6-01 mouth. [id number] 1,000 mcg 19:24: Tab 51 CITALOPRAM 2016-0 Yes Take by NPI :183 HYDROBROMID 6-01 mouth. [id number] 1 E (CELEXA 19:24: ORAL) 51 CARVEDILOL 2016-0 Yes Take by NPI :183 ORAL 6-01 mouth. [id number] 19:24: 51 OMEPRAZOLE 2016-0 Yes Take by NPI :183 MAGNESIUM 6-01 mouth. [id number] (PRILOSEC 19:24: OTC ORAL) 51 selexipag 2016-0 Yes Take by NPI: 183 (UPTRAVI) 6-01 mouth. [id number] 1,000 mcg 19:24: Tab 51 CITALOPRAM 2016-0 Yes Take by NPI :183 HYDROBROMID 6-01 mouth. 657393 1 E (CELEXA 19:24: ORAL) 51 CARVEDILOL 2016-0 Yes Take by NPI :183 ORAL 6-01 mouth. [id number] 19:24: 51 OMEPRAZOLE 2016-0 Yes Take by NPI :183 MAGNESIUM 6-01 mouth. [id number] (PRILOSEC 19:24: OTC ORAL) 51 selexipag 2016-0 Yes Take by NPI: 183 (UPTRAVI) 6-01 mouth. [id number] 1,000 mcg 19:24: Tab 51 CITALOPRAM 2016-0 Yes Take by NPI :183 HYDROBROMID 6-01 mouth. [id number] 1 E (CELEXA 19:24: ORAL) 51 CARVEDILOL 2016-0 Yes Take by NPI :183 ORAL 6-01 mouth. [id number] 19:24: 51 OMEPRAZOLE 2016-0 Yes Take by NPI :183 MAGNESIUM 6-01 mouth. [id number] (PRILOSEC 19:24: OTC ORAL) 51 selexipag 2016-0 Yes Take by NPI: 183 (UPTRAVI) 6-01 mouth. [id number] 1,000 mcg 19:24: Tab 51 CITALOPRAM 2016-0 Yes Take by NPI :183 HYDROBROMID 6-01 mouth. [id number] 1 E (CELEXA 19:24: ORAL) 51 CARVEDILOL 2016-0 Yes Take by NPI :183 ORAL 6-01 mouth. [id number] 19:24: 51 losartan 2016-0 Yes NPI:183 (COZAAR) 50 3-20 [id number] mg tablet 00:00: 00 losartan 2016-0 Yes NPI:183 (COZAAR) 50 3-20 [id number] mg tablet 00:00: 00 losartan 2016-0 Yes NPI:183 (COZAAR) 50 3-20 [id number] mg tablet 00:00: 00 losartan 2016-0 Yes NPI:183 (COZAAR) 50 3-20 [id number] mg tablet 00:00: 00 losartan 2016-0 Yes NPI:183 (COZAAR) 50 3-20 [id number] mg tablet 00:00: 00 losartan 2016-0 Yes NPI:183 (COZAAR) 50 3-20 [id number] mg tablet 00:00: 00 losartan 2016-0 Yes NPI:183 (COZAAR) 50 3-20 [id number] mg tablet 00:00: 00 losartan 2016-0 Yes NPI:183 (COZAAR) 50 3-20 [id number] mg tablet 00:00: 00 losartan 2016-0 Yes NPI:183 (COZAAR) 50 3-20 [id number] mg tablet 00:00: 00 losartan 2016-0 Yes NPI:183 (COZAAR) 50 3-20 [id number] mg tablet 00:00: 00 losartan 2016-0 Yes NPI:183 (COZAAR) 50 3-20 [id number] mg tablet 00:00: 00 losartan 2016-0 Yes NPI:183 (COZAAR) 50 3-20 [id number] mg tablet 00:00: 00 losartan 2016-0 Yes NPI:183 (COZAAR) 50 3-20 [id number] mg tablet 00:00: 00 losartan 2016-0 Yes NPI:183 (COZAAR) 50 3-20 [id number] mg tablet 00:00: 00 losartan 2016-0 Yes NPI:183 (COZAAR) 50 3-20 [id number] mg tablet 00:00: 00 losartan 2016-0 Yes NPI:183 (COZAAR) 50 3-20 [id number] mg tablet 00:00: 00 losartan 2016-0 Yes NPI:183 (COZAAR) 50 3-20 [id number] mg tablet 00:00: 00 losartan 2016-0 Yes NPI:183 (COZAAR) 50 3-20 [id number] mg tablet 00:00: 00 losartan 2016-0 Yes NPI:183 (COZAAR) 50 3-20 [id number] mg tablet 00:00: 00 losartan 2016-0 Yes NPI:183 (COZAAR) 50 3-20 [id number] mg tablet 00:00: 00 losartan 2016-0 Yes NPI:183 (COZAAR) 50 3-20 [id number] mg tablet 00:00: 00 losartan 2016-0 Yes NPI:183 (COZAAR) 50 3-20 [id number] mg tablet 00:00: 00 losartan 2016-0 Yes NPI:183 (COZAAR) 50 3-20 [id number] mg tablet 00:00: 00 losartan 2016-0 Yes NPI:183 (COZAAR) 50 3-20 [id number] mg tablet 00:00: 00 losartan 2016-0 Yes NPI:183 (COZAAR) 50 3-20 [id number] mg tablet 00:00: 00 losartan 2016-0 Yes NPI:183 (COZAAR) 50 3-20 [id number] mg tablet 00:00: 00 losartan 2016-0 Yes NPI:183 (COZAAR) 50 3-20 [id number] mg tablet 00:00: 00 Celexa Celexa Yes Na Perez 1 tablet NPI: [id number] Baclofen Baclofen Yes Na Perez as NPI: 174 directed [id number] Prilosec Prilosec Yes Na Perez 1 capsule NPI:174 30 minutes [id number] before morning meal Ambien Ambien Yes Na Perez TAKE 1 NPI:17 4 TABLET BY [id number] MOUTH EVERY DAY AT BEDTIME NEEDED Amlodipine- Amlodipine- Yes Na Perez 1 tablet NPI:174 Olmesartan Olmesartan [id number] 5879 Vital Signs Vital Name Observation Time Observation Value Comments Source Body height 2019-06-10 12:54:00 157.5 cm NPI:1831 [id number] Body weight 2019-06-10 12:54:00 86.183 kg NPI:1831 218885 BMI 2019-06-10 12:54:00 34.75 kg/m2 NPI:1831 815112 Body height 2019-06-10 12:54:00 157.5 cm NPI:1831 564687 Body weight 2019-06-10 12:54:00 86.183 kg NPI:1831 679261 BMI 2019-06-10 12:54:00 34.75 kg/m2 NPI:1831 399556 Body height 2019-05-13 16:13:00 157.5 cm NPI:1831 297255 Body weight 2019-05-13 16:13:00 86.183 kg NPI:1831 045283 BMI 2019-05-13 16:13:00 34.75 kg/m2 NPI:1831 850711 Body height 2019-05-11 19:33:00 157.5 cm NPI:1831 456921 Body weight 2019-05-11 19:33:00 86.183 kg NPI:1831 846758 BMI 2019-05-11 19:33:00 34.75 kg/m2 NPI:1831 278457 Systolic blood pressure 2019-03-30 19:18:00 162 mm[Hg] Diastolic blood 2019-03-30 19:18:00 84 mm[Hg] NPI:1 [id number] pressure Heart rate 2019-03-30 19:18:00 76 /min NPI:1831 153656 Body height 2019-03-30 19:12:00 157.5 cm NPI:1831 468197 Body weight 2019-03-30 19:12:00 86.183 kg NPI:1831 780976 BMI 2019-03-30 19:12:00 34.75 kg/m2 NPI:1831 067018 Systolic blood pressure 2019-03-23 19:07:00 130 mm[Hg] Diastolic blood 2019-03-23 19:07:00 75 mm[Hg] NPI:1 [id number] pressure Body height 2019-03-23 19:07:00 157.5 cm NPI:1831 848799 Body weight 2019-03-23 19:07:00 86.183 kg NPI:1831 719027 BMI 2019-03-23 19:07:00 34.75 kg/m2 NPI:1831 023257 Systolic blood pressure 2018-11-27 15:19:00 116 mm[Hg] Diastolic blood 2018-11-27 15:19:00 67 mm[Hg] NPI:1 [id number] pressure Body height 2018-11-27 15:19:00 157.5 cm NPI:1831 734645 Body weight 2018-11-27 15:19:00 86.183 kg NPI:1831 569943 BMI 2018-11-27 15:19:00 34.75 kg/m2 NPI:1831 759912 Systolic blood pressure 2018-11-26 19:18:00 108 mm[Hg] Diastolic blood 2018-11-26 19:18:00 68 mm[Hg] NPI:1 [id number] pressure Body height 2018-11-26 19:18:00 157.5 cm NPI:1831 685436 Body weight 2018-11-26 19:18:00 86.183 kg NPI:1831 854547 BMI 2018-11-26 19:18:00 34.75 kg/m2 NPI:1831 404223 Systolic blood pressure 2018-11-20 01:12:00 150 mm[Hg] Diastolic blood 2018-11-20 01:12:00 86 mm[Hg] NPI:1 [id number] pressure Heart rate 2018-11-20 01:12:00 86 /min NPI:1831 537676 Body temperature 2018-11-20 01:12:00 36.83 Mitra Respiratory rate 2018-11-20 01:12:00 18 /min Body height 2018-11-20 01:12:00 157.5 cm NPI:1831 628515 Body weight 2018-11-20 01:12:00 86.183 kg NPI:1831 515404 BMI 2018-11-20 01:12:00 34.75 kg/m2 NPI:1831 068810 Oxygen saturation in 2018-11-20 01:12:00 98 /min Arterial blood by Pulse oximetry Procedures Procedure Date / Time Performed Performing Clinician Sourc e XR CHEST 1 VW 2019-05-19 16:40:22 Elena Espino NPI:[id number] ASSIGNMENT OF BENEFITS 2019-05-19 15:54:41 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, No Name MR KNEE LEFT WO CONTRAST 2019-05-11 20:16:34 Elena Espino N PI:[id number] UNILATERAL VENOUS DUPLEX 2018-11-26 21:45:02 Chau Solano NPI :[id number] LOWER EXTREMITY BY VASCULAR LAB NOTICE OF PRIVACY 2018-11-26 20:46:54 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, No PRACTICES Name CONSENT/REFUSAL FOR 2018-11-26 20:46:39 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, 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 I:[id number] DIAGNOSIS AND TREATMENT Name ASSIGNMENT OF BENEFITS 2018-11-26 20:46:20 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, No Name D-DIMER 2018-11-20 01:33:00 Louie Jerez NPI:[id number] NOTICE OF PRIVACY 2018-11-20 01:09:41 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, No PRACTICES Name CONSENT/REFUSAL FOR 2018-11-20 01:05:31 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, 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 I:[id number] DIAGNOSIS AND TREATMENT Name Encounters Start End Encounter Admission Attending Care Care Encounter Source Date/Time Date/Time Type Type Clinicians Facility Department ID 2021-06-27 Outpatient Perez, Na [facility]MLC [facility] [id number] NPI:174 14:40:02 [id number] 2021-04-04 Outpatient Perez, Na [facility] [id number] NPI:174 13:35:08 25274 [id number] 2021-04-04 Outpatient Perez, Na [facility]C [facility] [id number] NPI:174 13:13:45 [id number] 2021-04-04 Outpatient Perez, Na [facility] [id number] NPI:174 13:04:57 00363 [id number] 2021-04-04 Outpatient Perez, Na [facility]LMLC ST[facility] [id number] NPI:174 13:00:30 [id number] 2021-04-04 Outpatient Perez, Na [facility]MLC [facility] [id number] NPI:174 12:59:52 [id number] 2021-04-04 Outpatient Perez, Na [facility]LMLC [facility] [id number] NPI:174 12:51:20 [id number] 2021-04-04 Outpatient Perez, Na [facility]C [facility] [id number] NPI:174 12:02:27 35714 [id number] 2021-04-04 Outpatient Perez, Na [facility]MLC [facility] [id number] NPI:174 12:01:03 99164 [id number] 2021-04-04 Outpatient Perez, Na [facility]LMLC [facility] [id number] NPI:174 11:33:49 [id number] 2021-04-04 Outpatient Perez, Na [facility]C [facility] [id number] NPI:174 11:33:44 [id number] 2021-04-04 Outpatient Perez, Na [facility]LMLC [facility] [id number] NPI:174 11:17:12 [id number] 2021-06-29 2021-06-29 ambulatory [facility]LMLC [facility]C [id number] NPI:174 00:00:00 00:00:00 [id number] 2021-06-28 2021-06-28 ambulatory [facility]LMLC ST[facility]C [id number] NPI:174 00:00:00 00:00:00 [id number] 2021-06-02 2021-06-02 ambulatory [facility]MLC [facility]C [id number] NPI:174 00:00:00 00:00:00 [id number] 2021-05-01 2021-05-01 ambulatory [facility]MLC [facility]C [id number] NPI:174 00:00:00 00:00:00 [id number] 2021-04-03 2021-04-03 ambulatory [facility]LMLC [facility]C [id number] NPI:174 00:00:00 00:00:00 [id number] 2021-03-22 2021-03-22 ambulatory [facility]LMLC ST[facility]C [id number] NPI:174 00:00:00 00:00:00 [id number] 2021-03-22 2021-03-22 ambulatory [facility]MLC [facility]C [id number] NPI:174 00:00:00 00:00:00 [id number] 2021-02-08 2021-02-08 ambulatory [facility]MLC [facility]C [id number] NPI:174 00:00:00 00:00:00 [id number] 2021-01-31 2021-01-31 ambulatory [facility] [id number] NPI:174 00:00:00 00:00:00 [id number] 2021-01-31 2021-01-31 ambulatory [facility]MLC ST[facility]C [id number] NPI:174 00:00:00 00:00:00 [id number] 2020-11-24 2020-11-24 Outpatient [facility] [id number] NPI:174 00:00:00 00:00:00 [id number] 2020-11-16 2020-11-16 Outpatient [facility] [id number] NPI:174 00:00:00 00:00:00 [id number] 2020-10-13 2020-10-13 Outpatient [facility] [id number] NPI:174 00:00:00 00:00:00 [id number] 2020-10-09 2020-10-09 Outpatient [facility] [id number] NPI:174 00:00:00 00:00:00 [id number] 2020-08-18 2020-08-18 Outpatient [facility] [id number] NPI:174 00:00:00 00:00:00 [id number] 2020-08-17 2020-08-17 Outpatient [facility] [id number] NPI:174 00:00:00 00:00:00 [id number] 2020-08-14 2020-08-14 Outpatient [facility] [id number] NPI:174 00:00:00 00:00:00 [id number] 2020-07-26 2020-07-26 Outpatient [facility] [id number] NPI:174 00:00:00 00:00:00 [id number] 2020-07-26 2020-07-26 Outpatient [facility] [id number] NPI:174 00:00:00 00:00:00 [id number] 2020-07-13 2020-07-13 Outpatient [facility] [id number] NPI:174 00:00:00 00:00:00 [id number] 2020-06-22 2020-06-22 Outpatient [facility] [id number] NPI:174 00:00:00 00:00:00 [id number] 2020-03-15 2020-03-15 Outpatient [facility] [id number] NPI:174 00:00:00 00:00:00 [id number] 2020-01-14 2020-01-14 Outpatient [facility] [id number] NPI:174 00:00:00 00:00:00 [id number] 2019-11-30 2019-11-30 Outpatient [facility] [id number] NPI:174 00:00:00 00:00:00 [id number] 2019-11-16 2019-11-16 [facility] [id number] NPI:174 15:00:00 15:00:[address] [facility] 2019-11-05 2019-11-05 [facility] [id number] NPI:174 09:21:00 09:21:[address] [facility] 2019-10-29 2019-10-29 [facility] [id number] NPI:174 11:34:00 11:34:[address] [facility] 2019-10-29 2019-10-29 [facility] [id number] NPI:174 10:00:00 10:00:[address] [facility] 2019-10-28 2019-10-28 [facility] [id number] NPI:174 14:09:00 14:09:[address] [facility] 2019-10-11 2019-10-11 [facility] [id number] NPI:174 15:20:00 15:20:[address] [facility] 2019-10-07 2019-10-07 [facility] [id number] NPI:174 10:56:00 10:56:00 t [facility] [address] [facility] [facility] 2019-10-07 2019-10-07 [facility] [id number] NPI:174 10:00:00 10:00:[address] [facility] 2019-10-06 2019-10-06 [facility] [id number] NPI:174 15:33:00 15:33:[address] [facility] 2019-10-06 2019-10-06 [facility] [id number] NPI:174 13:46:00 13:46:[address] [facility] 2019-09-30 2019-09-30 [facility] [id number] NPI:174 10:09:00 10:09:[address] [facility] 2019-08-29 2019-08-29 [facility] [id number] NPI:174 03:04:00 03:04:[address] [facility] 2019-08-26 2019-08-26 [facility] [id number] NPI:174 02:31:00 02:31:[address] [facility] 2019-08-16 2019-08-16 [facility] [id number] NPI:174 08:05:00 08:05:00 t [employer] [address] [facility] 2019-08-13 2019-08-13 [facility] [id number] NPI:174 13:00:00 13:00:00 t [employer] [address] [facility] 2019-08-13 2019-08-13 [facility] [id number] NPI:174 13:00:00 13:00:00 t [employer] 0485 9 [facility] 2019-06-10 2019-06-10 [facility] [id number] NPI:183 07:53:05 08:11:21 Visit [facility] 350.1.13.10 13 [id number] Surgical 4.2.7.2.686 Specialti [id number] es [address] [place] 2019-06-10 2019-06-10 Office [facility] [id number] 07:53:05 08:11:21 Visit [facility] 350.1.13.10 Surgical 4.2.7.2.686 Specialti [id number] es [address] [place] 2019-06-10 2019-06-10 [facility] [id number] 3N-20 NPI:183 08:00:00 08:00:00 ELENA Mata02 [id number] 1 2019-06-10 2019-06-10 [facility] [id number] NPI:183 08:00:00 08:00:00 ELENA [id number] 1 2019-06-10 2019-06-10 Telephone [facility] 1.2.840.114 [id number] NPI:183 00:00:00 00:00:00 Elena [facility] 350.1.13.10 13 [id number] Surgical 4.2.7.2.686 Specialti [id number] es [address] [place] 2019-06-10 2019-06-10 Telephone [facility] 1.2.840.114 [id number] 00:00:00 00:00:00 [facility] 350.1.13.10 Surgical 4.2.7.2.686 Specialti [id number] es [address] [place] 2019-06-09 2019-06-09 [facility] [id number] -20 NPI:183 13:15:00 13:15:00 CHAU [id number] 1 2019-06-09 2019-06-09 [facility] [id number] NPI:183 13:15:00 13:15:00 CHAU [id number] 1 2019-06-07 2019-06-07 [facility] [id number] -20 NPI:183 13:30:00 13:30:00 CHAU [id number] 1 2019-06-07 2019-06-07 [facility] [id number] NPI:183 13:30:00 13:30:00 CHAU [id number] 1 2019-06-04 2019-06-04 [facility] [id number] -20 NPI:183 09:00:00 09:00:00 CHAU [id number] 1 2019-06-04 2019-06-04 [facility] [id number] NPI:183 09:00:00 09:00:00 CHAU [id number] 1 2019-06-03 2019-06-03 [facility] [id number] -20 NPI:183 09:15:00 09:15:00 CHAU [id number] 1 2019-06-03 2019-06-03 [facility] [id number] NPI:183 09:15:00 09:15:00 CHAU [id number] 1 2019-05-26 2019-05-26 [facility] Srinivas [facility] 1.2.840.114 [id number] NPI:183 11:59:34 23:59:00 Encounter Elena BORJAS 350.1.13.10 [id number] 4.2.7.2.686 [id number] 2019-05-26 2019-05-26 Outpatient R [facility] NUT [id number] NPI:183 00:00:00 00:00:00 ELENA [id number] 1 2019-05-26 2019-05-26 [facility] [id number] NPI:183 00:00:00 00:00:00 Ch[facility] 350.1.13.10 13 [id number] Surgical 4.2.7.2.686 Special [id number] Jessie Garcia 2019-05-19 2019-05-19 [employer] 1.2.8 40.114 [id number] NPI:183 11:06:52 11:21:52 Visit Elena Espino 350.1.13.10 [id number] [place] 4.2.7.2.686 [facility] [id number] [address] 2019-05-19 2019-05-19 [facility] [id number] NPI:183 11:07:51 11:14:00 ELENA [id number] 1 2019-05-19 2019-05-19 [facility] 1.2.840.114 [id number] NPI:183 11:00:00 11:14:00 Encounter Elena Garcia 350.1.13.10 [id number] [place] 4.2.7.2.686 [place] [id number] 2019-05-19 2019-05-19 [facility] [id number]-20 NPI:183 11:00:00 11:00:00 ELENA [id number] 1 2019-05-19 2019-05-19 Orders Doctor DOLLY 1.2.840.114 [id number] NPI:183 00:00:00 00:00:00 Only Unassigned, JAYDEN 350.1.13.10 [id number] [place] [facility] 4.2.7.2.686 [id number] 2019-05-17 2019-05-17 Telephone Srinivas [facility] 1.2.840.114 [id number] NPI:183 00:00:00 00:00:00 Elena Reed [facility] 350.1.13.10 13 [id number] Surgical 4.2.7.2.686 Specialti [id number] es [address] [place] 2019-05-13 2019-05-13 Office [facility] 1.2.443.346 [id number] NPI:183 10:05:58 14:22:17 Visit Elena Reed [facility] 350.1.13.10 [id number] Surgical 4.2.7.2.686 Specialti [id number] [address] [place] 2019-05-13 2019-05-13 [facility] [id number] NPI:183 10:30:00 10:30:00 ELENA Rodriguez05 [id number] 1 2019-05-13 2019-05-13 Outpatient R [facility] [id number] NPI:183 10:30:00 10:30:00 ELENA [id number] 1 2019-05-11 2019-05-11 Outpatient R [facility] [id number] NPI:183 11:50:30 23:59:00 ELENA [id number] 1 2019-05-11 2019-05-11 [facility] 1.2.840.114 [id number] NPI:183 11:50:00 23:59:00 Encounter Elena [place] 350.1.13.[id number]2.7.2.686 [place] [id number] 2019-05-11 2019-05-11 [facility] [id number] NPI:183 00:00:00 00:00:00 ELENA Rodriguez03 [id number] 1 2019-04-27 2019-04-27 [facility]phone [facility] [id number] NPI:183 00:00:00 00:00:00 [facility] 350.1.13.10 13 [id number] Surgical 4.2.7.2.686 Specialti [id number] [address] [place] 2019-03-30 2019-03-30 Office [facility] 1.2.840.114 [id number] NPI:183 13:10:27 13:25:27 [facility] 350.1.13.10 13 [id number] Surgical 4.2.7.2.686 Specialti [phone] es [address] [place] 2019-03-23 2019-03-23 [facility] 1.2.840.114 [id number] NPI:183 13:05:56 13:27:49 [facility] 350.1.13.10 13 [id number] Surgical 4.2.7.2.686 Specialti [id number] es [address] [place] 2018-11-27 2018-11-27 [facility] 1.2.840.114 [id number] NPI:183 10:18:07 10:41:45 [facility] 350.1.13.10 13 [id number] Surgical 4.2.7.2.686 Specialti [id number] es [address] [place] 2018-11-26 2018-11-26 [facility] Elena Espino [facility] 1.2.840 .114 [id number] NPI:183 15:54:44 23:59:00 Encounter tSacy, [facility] Cardio Vascular [place] 3 50.1.13.10 [id number] [place] 4.2.7.2.686 [place] [id number] [facility] 2018-11-26 2018-11-26 [facility] 1.2.840.114 [id number] NPI:183 14:40:06 15:53:00 [facility]counter [facility] 350.1.13.10 [id number] Surgical 4.2.7.2.686 Specialti [id number] es [address] [place] 2018-11-26 2018-11-26 [facility] 1.2.840.114 [id number] NPI:183 14:04:15 15:34:29 [facility] 350.1.13.10 13 [id number] Surgical 4.2.7.2.686 Specialti [id number] es [address] [place] 2018-11-19 2018-11-19 Emergency Solitario, [facility] 1.2.215.512 [id number] NPI:183 20:24:29 21:34:00 Louie Garcia 350.1.13.10 1 [id number] [place] 4.2.7.2.686 [place] [id number] [id number] Results Test Description Test Time Test Comments Results Result Sourc e Comments XR CHEST 1 VW 2019-05-09 HISTORY: Preop. FINDINGS: NPI:[id number] 1 ?AP view of the chest 878 1 16:46:19 showed upper normal appearance of thecardiomediastinal silhouette. No acute pneumonia, pleural effusion,pulmonary congestion detected. Lower cervical ACDF surgical changes noted. CONCLUSIONS: No signs of acute cardiopulmonary disease. [facility], Radiant Results Inft User - 05/19/2019 11:47 AM CDTHISTORY: Preop.FINDINGS: AP view of the chest showed upper normal appearance of thecardiomediastinal silhouette. No acute pneumonia, pleural effusion,pulmonary congestion detected. Lower cervical ACDF surgical changes noted.CONCLUSIONS: No signs of acute cardiopulmonary disease. MR KNEE LEFT WO HISTORY: ?Pain in the NPI:[id number] CONTRAST 3 left knee and left knee [id number] 20:23:06 catches and pops. TECHNIQUE: MR imaging of the left knee was done in multiple projectionsusing 1.5T MR unit and standard protocol. FINDINGS: BONE AND JOINT: Trace amount of joint fluid fluid noted and there is a verysmall subcentimeter sized Solano's cyst. Hypoplastic medial patellar andtrochlear facets noted. Minimal chondromalacia is seen in thepatellofemoral joint and lateral knee joint. Medial knee joint showedslightly more chondromalacia with subchondral 2 to 3 mm size cystic changesin the dorsal nonweightbearing surface of the medial femoral condyle. MENISCI: Degenerative signal noted with blunted apex of the body of lateralmeniscus without a displaced tear.Posterior horn of the medial meniscus showed complex shaped nondisplacedtear extending into the body portion. LIGAMENTS AND TENDONS: Patellar tendon, quadriceps complex, cruciateligaments and collateral ligaments are intact. CONCLUSIONS:1. Trace amount of left knee joint effusion, mild degenerative changes inmedial knee joint and less in the rest of the left knee joint.2. Complex hip nondisplaced tears in the posterior horn of medial meniscusextending into the body portion. [facility], Radiant Results Inft User - 05/11/2019 2:24 PM CSTHISTORY: Pain in the left knee and left knee catches and pops.TECHNIQUE: MR imaging of the left knee was done in multiple projectionsusing 1.5T MR unit and standard protocol.FINDINGS: BONE AND JOINT: Trace amount of joint fluid fluid noted and there is a verysmall subcentimeter sized Solano's cyst. Hypoplastic medial patellar andtrochlear facets noted. Minimal chondromalacia is seen in thepatellofemoral joint and lateral knee joint. Medial knee joint showedslightly more chondromalacia with subchondral 2 to 3 mm size cystic changesin the dorsal nonweightbearing surface of the medial femoral condyle.MENISCI: Degenerative signal noted with blunted apex of the body of lateralmeniscus without a displaced tear.Posterior horn of the medial meniscus showed complex shaped nondisplacedtear extending into the body portion.LIGAMENTS AND TENDONS: Patellar tendon, quadriceps complex, cruciateligaments and collateral ligaments are intact.CONCLUSIONS:1. Trace amount of left knee joint effusion, mild degenerative changes inmedial knee joint and less in the rest of the left knee joint.2. Complex hip nondisplaced tears in the posterior horn of medial meniscusextending into the body portion. CHEST 2 VIEWS 2018-10-0 1 10:09:00 [place] [address] Patient Name: YANA KURTZ MR #: [id number] : 1945 Age/Sex: 73/F Req #: [id number] Adm Physician: Ordered by: SILVIA CM MD Report #: [id number] Location: OR Room/Bed: Procedure: [id number] DX/CHEST 2 VIEWS Exam Date: 12/08/18 Exam Time: 0950 REPORT STATUS: Signed TECHNIQUE: Frontal and lateral views of the chest. INDICATION: PRE-OP [facility] [id number]. COMPARISON: None. FINDINGS: LINES/TUBES: None. LUNGS: [...] 12/08/18 1013 COPY TO: SILVIA CM MD D-DIMER 2018-11-20 01:51:00 Test Item Value Reference Range Interpretation Comme nts D-DIMER (test code = See_Comment [Autom ated message] The [id number]) system which ge nerated this result tra nsmitted reference range : <0.41 ?g/mL (FEU). Th e reference range was not used to interpr et this result as normal/abnormal . ANDREW (test code = ANDREW) This test may be used in conjunction with a clinical pretest probability (PTP) assessment model to exclude venous thromboembolism (VTE) in patients suspected of deep venous thrombosis (DVT) and pulmonary embolism (PE) A D-Dimer value less than 0.50 ?g/ml (FEU) has a negative predicative value of 96 to 100% (95% CI)and 97 to 100% (95% CI) as an aid in the diagnosis of deep vein thrombosis (DVT) and pulmonary embolism when there is low or moderate pretest probability of PE or DVT. D-Dimer values are expressed in initial fibrinogen equivalent units (FEU)"The assay results should be used with other information, including the clinical context, in forming a diagnosis. Lab Interpretation Normal (test code = 43111-8)
--- NOTE | 2021-07-15 22:53 | ER ---
Nurse's Notes [facility] Name: Blanka Parker Age: 75 yrs Sex: Female : 1945 Arrival Date: 07/15/2021 Time: 20:26 Bed Waiting Private MD: Diagnosis: Presentation: 07/15 20:55 Chief complaint: Patient states: she has history of diverticulitis and is having bb abdominal pain and constipation which is getting worse since . Coronavirus screen: At this time, the client does not indicate any symptoms associated with coronavirus-19. Ebola Screen: No symptoms or risks identified at this time. Initial Sepsis Screen: Does the patient meet any 2 criteria? No. Patient's initial sepsis screen is negative. Does the patient have a suspected source of infection? No. Patient's initial sepsis screen is negative. Risk Assessment: Do you want to hurt yourself or someone else? Patient reports no desire to harm self or others. Onset of symptoms was July 12, 2021. 20:55 Method Of Arrival: Ambulatory 20:55 Acuity: PETEY 3 bb Triage Assessment: 20:57 General: Appears in no apparent distress. uncomfortable. Pain: Complains of pain in bb abdomen Pain currently is 5 out of 10 on a pain scale. Neuro: Level of Consciousness is awake, alert, obeys commands, Oriented to person, place, time, situation. Cardiovascular: Capillary refill < 3 seconds Patient's skin is warm and dry. Respiratory: Respiratory effort is even, unlabored, Respiratory pattern is regular. GI: Abdomen is obese, Reports lower abdominal pain, constipation. Derm: Skin is pink, warm \T\ dry. Musculoskeletal: Circulation, motion, and sensation intact. Historical: - Allergies: 20:57 Codeine; bb 20:57 COLLAGENASE; bb 20:57 Demerol; bb 20:57 hydromorphone; bb 20:57 Latex, Natural Rubber; bb 20:57 Lidocaine; bb 20:57 PENICILLINS; bb 20:57 Sulfa (Sulfonamide Antibiotics); bb 20:57 venlafaxine; bb 20:57 Zanaflex; bb - PMHx: 20:57 degenerative joint disease; Diverticulitis; GERD; High Cholesterol; Hypertension; bb - Immunization history:: Client reports having NOT received the Covid vaccine. - Social history:: Smoking status: Patient reports the use of cigarette tobacco products. Assessment: 22:52 Reassessment: pt states she is really hurting and does not want to wait any longer she bb left the ED with family. Vital Signs: 20:55 BP 129 / 68; Pulse 70; Resp 16 S; Temp 98.6(O); Pulse Ox 100% on R/A; Weight 81.65 kg bb (R); Height 5 ft. 2 in. (157.48 cm) (R); Pain 5/10; 20:55 Body Mass Index 32.92 (81.65 kg, 157.48 cm) cristopher ED Course: 20:26 Patient arrived in ED. ruddy 20:57 Triage completed. cristopher 20:57 Arm band placed on Patient placed in waiting room, Patient notified of wait time. cristopher Family accompanied patient. Administered Medications: No medications were administered Outcome: 22:53 Patient left the ED. cristopher Signatures: Rachna Jade RN RN Paula Parks
[2021-07-15 23:21] VITALS: BP 129/68; TEMP 98.6; O2SAT 100
== END 2021-07-15 22:53 | disposition left against medical advice (07) ==
LOC: ER 20:21
DX: Z53.21 Procedure and treatment not carried out due to patient leaving prior to being seen by health care provider (principal)
CPT/HCPCS: 99281

== ENCOUNTER 2021-08-01 18:36 | Emergency (ER) | payer OTHER ==
--- OUTSIDE RECORDS SUMMARY | 2021-08-01 18:41 | XMS REPORT | Continuity of Care Document ---
:1945 Author Organization [facility] t Address [address] [place] [address] [address] [place] [address] Care Team Providers Name Role Phone PEREZ, CHAMP Primary Care Physician Unavailable Derek Perez Attending Clinician Unavailable Srinivas MERAZ L Attending Clinician Derek ESPINO Attending Clinician Unavailable Al SOLANO Attending Clinician Unavailable Xiomara ELY S Attending Clinician Pob, Lab Main Attending [...] Date Left hand Left hand Disease Active Uni vers pain pain 6-01 ity of 00:00: [place] 00 Medical Branch Allergies, Adverse Reactions, Alerts Allergy Allergy Status Severity Reaction(s) Onset Inactive Treating Comm ents Source Name Type Date Date Clinician Sulfa Propensi Active Diarrhea Univer s (Sulfona ty to 9-12 ity of mide adverse 00:00: [place] Antibiot reaction 00 Medica l ics) s Branch SULFA Drug Active Diarrhea Univers (SULFONA Class 9-12 ity of MIDE 00:00: [place] ANTIBIOT 00 Medical ICS) Branch TIZANIDI DRUG Active Anaphylaxis Uni vers NE HCL INGREDI 11-19 ity of 00:00: [place] 00 Medical Branch Tizanidi Propensi Active Anaphylaxis 2019-0 U nivers ne Hcl ty to 11-19 ity of adverse 00:00: [place] reaction 00 Medical s Branch Codeine Propensi Active Palpitations 2016-0 U nivers ty to 08-08 ity of adverse 00:00: [place] reaction Medical s Branch Meperidi Propensi Active Anaphylaxis 2016-0 U nivers ne Hcl ty to 08-08 ity of adverse 00:00: [place] reaction 00 Medical s Branch CODEINE DRUG Active Palpitations Uni vers INGREDI 08-08 ity of 00:00: [place] 00 Medical Branch MEPERIDI DRUG Active Anaphylaxis Uni vers NE HCL INGREDI 08-08 ity of 00:00: [place] 00 Medical Branch Zanaflex Adverse Active anaphylaxis Co mmon Reaction [facility] Demerol Adverse Active anaphylaxis Com mon Reaction [facility] Social History Social Habit Start Date Stop Date Quantity Comments Source History of Cigarette Smoker [facility] of tobacco use [facility] Sex Assigned At [facility] of [facility] Alcohol intake 2019-06-10 2019-06-10 University of 00:00:00 00:00:00 [facility] Smoking Status Start Date Stop Date Source Current every day smoker 2019-06-10 00:00:[address] [facility] Medications Ordered Filled Start Stop Current Ordering Indication Dosage Frequency Signature Comments Components Source Medication Medication Date Date Medication? Clinician (SIG) Name Name PredniSONE PredniSONE 2019- No Na Perez 2 tablet Common 11-15 daily x 5 [facility] 00:[facility]:00 days then - [facility] 00 :[address] daily x 5 [facility] Ipratropium Ipratropium 2020- No Na Perez 2 sprays Common [place] 10-28 02-16 in each Sp[facility] t 00:00: 00:00 nostril - [facility] 00 :00 [facility] Baclofen Baclofen 2020- No Na Perez 1/2 tablet Common 10-10 with food [facility] 00:00: 00:00 or milk - [facility] 00 :00 [facility] Atorvastati Atorvastati Yes Na Perez 1 tablet Common n Calcium n Calcium 08-16 Spiri t 00:00: - [facility] 00 [facility] zolpidem 10 2019-0 Yes TK 1 T PO U nivers mg tablet 2-10 QHS PRN ity of 00:00: [place] [facility] zolpidem 10 2019-0 Yes TK 1 T PO U nivers mg tablet 2-10 QHS PRN ity of 00:00: [place] [facility] zolpidem 10 2019-0 Yes TK 1 T PO U nivers mg tablet 2-10 QHS PRN ity of 00:00: [place] [facility] zolpidem 10 2019-0 Yes TK 1 T PO U nivers mg tablet 2-10 QHS PRN ity of 00:00: [place] [facility] zolpidem 10 2019-0 Yes TK 1 T PO U nivers mg tablet 2-10 QHS PRN ity of 00:00: [place] [facility] zolpidem 10 2019-0 Yes TK 1 T PO U nivers mg tablet 2-10 QHS PRN ity of 00:00: [place] [facility] zolpidem 10 2019-0 Yes TK 1 T PO U nivers mg tablet 2-10 QHS PRN ity of 00:00: [place] [facility] zolpidem 10 2019-0 Yes TK 1 T PO U nivers mg tablet 2-10 QHS PRN ity of 00:00: [place] [facility] zolpidem 10 2019-0 Yes TK 1 T PO U nivers mg tablet 2-10 QHS PRN ity of 00:00: [place] [facility] zolpidem 10 2019-0 Yes TK 1 T PO U nivers mg tablet 2-10 QHS PRN ity of 00:00: [place] [facility] zolpidem 10 2019-0 Yes TK 1 T PO U nivers mg tablet 2-10 QHS PRN ity of 00:00: [place] [facility] zolpidem 10 2019-0 Yes TK 1 T PO U nivers mg tablet 2-10 QHS PRN ity of 00:00: [place] [facility] zolpidem 10 2019-0 Yes TK 1 T PO U nivers mg tablet 2-10 QHS PRN ity of 00:00: [place] [facility] methylPREDN 2019-0 Yes [id number] 84mg Take 21 Univers ISolone 1-21 9102 tablets by ity of (MEDROL, 00:00: mouth [place] FADI,) 4 mg 00 SEE-INSTRU Med ical tablets CTIONS. Branch follow package directions methylPREDN 2020-0 Yes [id number] 84mg Take 21 Univers ISolone 1-21 9102 tablets by ity of (MEDROL, 00:00: mouth [place] FADI,) 4 mg 00 SEE-INSTRU Med ical tablets CTIONS. Branch follow package directions methylPREDN 2020-0 Yes [id number] 84mg Take 21 Univers ISolone 1-21 9102 tablets by ity of (MEDROL, 00:00: mouth [place] FADI,) 4 mg 00 SEE-INSTRU Med ical tablets CTIONS. Branch follow package directions methylPREDN 2020-0 Yes [id number] 84mg Take 21 Univers ISolone 1-21 9102 tablets by ity of (MEDROL, 00:00: mouth [place] FADI,) 4 mg 00 SEE-INSTRU Med ical tablets CTIONS. Branch follow package directions methylPREDN 2020-0 Yes [id number] 84mg Take 21 Univers ISolone 1-21 9102 tablets by ity of (MEDROL, 00:00: mouth [place] FADI,) 4 mg 00 SEE-INSTRU Med ical tablets CTIONS. Branch follow package directions methylPREDN 2020-0 Yes [id number] 84mg Take 21 Univers ISolone 1-21 9102 tablets by ity of (MEDROL, 00:00: mouth [place] FADI,) 4 mg 00 SEE-INSTRU Med ical tablets CTIONS. Branch follow package directions methylPREDN 2020-0 Yes [id number] 84mg Take 21 Univers ISolone 1-21 9102 tablets by ity of (MEDROL, 00:00: mouth [place] FADI,) 4 mg 00 SEE-INSTRU Med ical tablets CTIONS. Branch follow package directions methylPREDN 2020-0 Yes [id number] 84mg Take 21 Univers ISolone 1-21 9102 tablets by ity of (MEDROL, 00:00: mouth [place] FADI,) 4 mg 00 SEE-INSTRU Med ical tablets CTIONS. Branch follow package directions methylPREDN 2020-0 Yes [id number] 84mg Take 21 Univers ISolone 1-21 9102 tablets by ity of (MEDROL, 00:00: mouth [place] FADI,) 4 mg 00 SEE-INSTRU Med ical tablets CTIONS. Branch follow package directions methylPREDN 2020-0 Yes [id number] 84mg Take 21 Univers ISolone 1-21 9102 tablets by ity of (MEDROL, 00:00: mouth [place] FADI,) 4 mg 00 SEE-INSTRU Med ical tablets CTIONS. Branch follow package directions methylPREDN 2020-0 Yes [id number] 84mg Take 21 Univers ISolone 1-21 9102 tablets by ity of (MEDROL, 00:00: mouth [place] FADI,) 4 mg 00 SEE-INSTRU Med ical tablets CTIONS. Branch follow package directions methylPREDN 2020-0 Yes [id number] 84mg Take 21 Univers ISolone 1-21 9102 tablets by ity of (MEDROL, 00:00: mouth [place] FADI,) 4 mg 00 SEE-INSTRU Med ical tablets CTIONS. Branch follow package directions methylPREDN 2020-0 Yes [id number] 84mg Take 21 Univers ISolone 1-21 9102 tablets by ity of (MEDROL, 00:00: mouth [place] FADI,) 4 mg 00 SEE-INSTRU Med ical tablets CTIONS. Branch follow package directions methylPREDN 2020-0 Yes [id number] 84mg Take 21 Univers ISolone 1-21 9102 tablets by ity of (MEDROL, 00:00: mouth [place] FADI,) 4 mg 00 SEE-INSTRU Med ical tablets CTIONS. Branch follow package directions methylPREDN 2020-0 Yes [id number] 84mg Take 21 Univers ISolone 1-21 9102 tablets by ity of (MEDROL, 00:00: mouth [place] FADI,) 4 mg 00 SEE-INSTRU Med ical tablets CTIONS. Branch follow package directions methylPREDN 2020-0 Yes [id number] 84mg Take 21 Univers ISolone 1-21 9102 tablets by ity of (MEDROL, 00:00: mouth [place] FADI,) 4 mg 00 SEE-INSTRU Med ical tablets CTIONS. Branch follow package directions methylPREDN 2020-0 Yes [id number] 84mg Take 21 Univers ISolone 1-21 9102 tablets by ity of (MEDROL, 00:00: mouth [place] FADI,) 4 mg 00 SEE-INSTRU Med ical tablets CTIONS. Branch follow package directions triamcinolo 2020-0 2020- No 40mg Unive rs ne 03-23 ity of acetonide 20:30: 19:30 [place] (KENALOG) 00 :00 Medical injection Branch 40 mg triamcinolo 2020- No 40mg 40 mg, Uni vers ne 03-23 Intra-malissa ity of acetonide 20:30: 19:30 [place], [place] (KENALOG) 00 :00 ONCE, 1 Medical injection dose, Tue Branc h 40 mg 03/23/19 at 1430, Routine triamcinolo 2020- No 40mg Unive rs ne 03-23 ity of acetonide 20:30: 19:30 [place] (KENALOG) 00 :00 Medical injection Branch 40 mg triamcinolo 2020- No 40mg 40 mg, Uni vers ne 03-23 Intra-malissa ity of acetonide 20:30: 19:30 [place], [place] (KENALOG) 00 :00 ONCE, 1 Medical injection dose, Tue Branc h 40 mg 03/23/19 at 1430, Routine Amlodipine- 2018-03 Yes TK 1 T PO U nivers Olmesartan 2-24 D ity of 10-20 mg 00:00: [place] Tab 00 Medical Branch Amlodipine- 2018- Yes TK 1 T PO U nivers Olmesartan 2-24 D ity of 10-20 mg 00:00: [place] Tab Medical Branch Amlodipine- 2018- Yes TK 1 T PO U nivers Olmesartan 2-24 D ity of 10-20 mg 00:00: [place] Tab Medical Branch Amlodipine- 2019- Yes TK 1 T PO U nivers Olmesartan 2-24 D ity of 10-20 mg 00:00: [place] Tab 00 Medical Branch Amlodipine- 2019- Yes TK 1 T PO U nivers Olmesartan 2-24 D ity of 10-20 mg 00:00: [place] Tab 00 Medical Branch Amlodipine- 2018- Yes TK 1 T PO U nivers Olmesartan 2-24 D ity of 10-20 mg 00:00: [place] Tab 00 Medical Branch Amlodipine- 2018- Yes TK 1 T PO U nivers Olmesartan 2-24 D ity of 10-20 mg 00:00: [place] Tab 00 Medical Branch Amlodipine- 2018- Yes TK 1 T PO U nivers Olmesartan 2-24 D ity of 10-20 mg 00:00: [place] Tab Medical Branch Amlodipine- 2018- Yes TK 1 T PO U nivers Olmesartan 2-24 D ity of 10-20 mg 00:00: [place] Tab Medical Branch Amlodipine- 2018- Yes TK 1 T PO U nivers Olmesartan 2-24 D ity of 10-20 mg 00:00: [place] Tab Medical Branch Amlodipine- 2018- Yes TK 1 T PO U nivers Olmesartan 2-24 D ity of 10-20 mg 00:00: [place] Tab Medical Branch Amlodipine- 2018- Yes TK 1 T PO U nivers Olmesartan 2-24 D ity of 10-20 mg 00:00: [place] Tab Medical Branch Amlodipine- 2018- Yes TK 1 T PO U nivers Olmesartan 2-24 D ity of 10-20 mg 00:00: [place] [id number] Medical Branch omeprazole 2018- Yes Univers 40 mg 2-23 ity of capsule 00:00: [place] [address] Medical Branch omeprazole 2018- Yes Univers 40 mg 2-23 ity of capsule 00:00: [place] [address] Medical Branch omeprazole 2018- Yes Univers 40 mg 2-23 ity of capsule 00:00: [place] [address] Medical Branch omeprazole 2018- Yes Univers 40 mg 2-23 ity of capsule 00:00: [place] [address] Medical Branch omeprazole 2018- Yes Univers 40 mg 2-23 ity of capsule 00:00: [place] [address] Medical Branch omeprazole 2019- Yes Univers 40 mg 2-23 ity of capsule 00:00: [place] [address] Medical Branch omeprazole 2018- Yes Univers 40 mg 2-23 ity of capsule 00:00: [place] [address] Medical Branch omeprazole 2019- Yes Univers 40 mg 2-23 ity of capsule 00:00: [place] [address] Medical Branch omeprazole 2019- Yes Univers 40 mg 2-23 ity of capsule 00:00: [place] [address] Medical Branch omeprazole 2019- Yes Univers 40 mg 2-23 ity of capsule 00:00: [place] [address] Medical Branch omeprazole 2019- Yes Univers 40 mg 2-23 ity of capsule 00:00: [address] Branch omeprazole 2018- Yes Univers 40 mg 2-23 ity of capsule 00:00: [place] 00 Medical Branch omeprazole 2019- Yes Univers 40 mg 2-23 ity of capsule 00:00: [place] 00 Medical Branch dexamethaso 2019-0 2019- No 10mg 10 mg, Uni vers ne 11-20 Oral, ity of (DECADRON) 03:15: 02:16 ONCE, 1 [facility] as injection 00 :00 dose, [facility] 10 mg 11/19/18 at Branch 2215, Routine HYDROcodone 2018- 2019- No 1{tbl} 1 tablet, Univers -acetaminop 11-20 Oral, ONCE i ty of hen (NORCO) 03:15: 02:04 NOW, 1 [facility] as 10-325 mg 00 :00 dose, [facility] tablet 1 11/19/18 at [facility] tablet 2215, Routine naproxen 2018- Yes [id number] 250mg Take 1 Univers 250 mg 9-12 [id number] tablet by ity of tablet 00:00: mouth 2 [place] 00 (two) Medical times Branch daily with meals. pentazocine 2019- Yes [id number] 1{tbl} Take 1 Univers -naloxone 9-12 [id number] tablet by ity of 50-0.5 mg 00:00: mouth [place] tablet 00 every 6 Medical (six) Branch hours as needed for Pain. cyclobenzap 2019- Yes [id number] 5mg Take 1 Univers rine 5 mg 9-12 [id number] tablet by ity of tablet 00:00: mouth at [place] 00 bedtime. Medical Branch naproxen 2019-0 Yes [id number] 250mg Take 1 Univers 250 mg 9-12 [id number] tablet by ity of tablet 00:00: mouth 2 [place] 00 (two) Medical times Branch daily with meals. pentazocine 2019- Yes [id number] 1{tbl} Take 1 Univers -naloxone 9-12 [id number] tablet by ity of 50-0.5 mg 00:00: mouth [place] tablet 00 every 6 Medical (six) Branch hours as needed for Pain. cyclobenzap 2019- Yes [id number] 5mg Take 1 Univers rine 5 mg 9-12 [id number] tablet by ity of tablet 00:00: mouth at [place] 00 bedtime. Medical Branch naproxen 2018- Yes [id number] 250mg Take 1 Univers 250 mg 9-12 [id number] tablet by ity of tablet 00:00: mouth 2 (two) Medical times Branch daily with meals. pentazocine 2018- Yes [id number] 1{tbl} Take 1 Univers -naloxone 9-12 [id number] tablet by ity of 50-0.5 mg 00:00: mouth [place] tablet 00 every 6 Medical (six) Branch hours as needed for Pain. cyclobenzap Yes [id number] 5mg Take 1 Univers rine 5 mg 9-12 [id number] tablet by ity of tablet 00:00: mouth at [place] 00 bedtime. Medical Branch naproxen Yes [id number] 250mg Take 1 Univers 250 mg 9-12 [id number] tablet by ity of tablet 00:00: mouth 2 (two) Medical times Branch daily with meals. pentazocine Yes [id number] 1{tbl} Take 1 Univers -naloxone 9-12 [id number] tablet by ity of 50-0.5 mg 00:00: mouth [place] tablet 00 every 6 Medical (six) Branch hours as needed for Pain. cyclobenzap Yes [id number] 5mg Take 1 Univers rine 5 mg 9-12 [id number] tablet by ity of tablet 00:00: mouth at [place] 00 bedtime. Medical Branch naproxen Yes [id number] 250mg Take 1 Univers 250 mg 9-12 [id number] tablet by ity of tablet 00:00: mouth 2 (two) Medical times Branch daily with meals. pentazocine 2018- Yes [id number] 1{tbl} Take 1 Univers -naloxone 9-12 [id number] tablet by ity of 50-0.5 mg 00:00: mouth [place] tablet 00 every 6 Medical (six) Branch hours as needed for Pain. cyclobenzap Yes [id number] 5mg Take 1 Univers rine 5 mg 9-12 [id number] tablet by ity of tablet 00:00: mouth at [place] 00 bedtime. Medical Branch naproxen Yes [id number] 250mg Take 1 Univers 250 mg 9-12 [id number] tablet by ity of tablet 00:00: mouth 2 (two) Medical times Branch daily with meals. naproxen 2018- Yes [id number] 250mg Take 1 Univers 250 mg 9-12 [id number] tablet by ity of tablet 00:00: mouth 2 (two) Medical times Branch daily with meals. pentazocine 2018- Yes [id number] 1{tbl} Take 1 Univers -naloxone 9-12 [id number] tablet by ity of 50-0.5 mg 00:00: mouth [place] tablet 00 every 6 Medical (six) Branch hours as needed for Pain. cyclobenzap Yes [id number] 5mg Take 1 Univers rine 5 mg 9-12 [id number] tablet by ity of tablet 00:00: mouth at [place] 00 bedtime. Medical Branch pentazocine Yes [id number] 1{tbl} Take 1 Univers -naloxone 9-12 [id number] tablet by ity of 50-0.5 mg 00:00: mouth [place] tablet 00 every 6 Medical (six) Branch hours as needed for Pain. naproxen Yes [id number] 250mg Take 1 Univers 250 mg 9-12 [id number] tablet by ity of tablet 00:00: mouth 2 (two) Medical times Branch daily with meals. pentazocine Yes [id number] 1{tbl} Take 1 Univers -naloxone 9-12 [id number] tablet by ity of 50-0.5 mg 00:00: mouth [place] tablet 00 every 6 Medical (six) Branch hours as needed for Pain. cyclobenzap Yes [id number] 5mg Take 1 Univers rine 5 mg 9-12 [id number] tablet by ity of tablet 00:00: mouth at [place] 00 bedtime. Medical Branch naproxen 2018- Yes [id number] 250mg Take 1 Univers 250 mg 9-12 [id number] tablet by ity of tablet 00:00: mouth 2 (two) Medical times Branch daily with meals. pentazocine Yes [id number] 1{tbl} Take 1 Univers -naloxone 9-12 [id number] tablet by ity of 50-0.5 mg 00:00: mouth [place] tablet 00 every 6 Medical (six) Branch hours as needed for Pain. cyclobenzap 2018- Yes [id number] 5mg Take 1 Univers rine 5 mg 9-12 [id number] tablet by ity of tablet 00:00: mouth at [place] 00 bedtime. Medical Branch cyclobenzap Yes [id number] 5mg Take 1 Univers rine 5 mg 9-12 [id number] tablet by ity of tablet 00:00: mouth at [place] 00 bedtime. Medical Branch naproxen Yes [id number] 250mg Take 1 Univers 250 mg 9-12 [id number] tablet by ity of tablet 00:00: mouth 2 (two) Medical times Branch daily with meals. pentazocine Yes [id number] 1{tbl} Take 1 Univers -naloxone 9-12 [id number] tablet by ity of 50-0.5 mg 00:00: mouth [place] tablet 00 every 6 Medical (six) Branch hours as needed for Pain. cyclobenzap Yes [id number] 5mg Take 1 Univers rine 5 mg 9-12 [id number] tablet by ity of tablet 00:00: mouth at [place] 00 bedtime. Medical Branch naproxen Yes [id number] 250mg Take 1 Univers 250 mg 9-12 [id number] tablet by ity of tablet 00:00: mouth 2 (two) Medical times Branch daily with meals. pentazocine Yes [id number] 1{tbl} Take 1 Univers -naloxone 9-12 [id number] tablet by ity of 50-0.5 mg 00:00: mouth [place] tablet 00 every 6 Medical (six) Branch hours as needed for Pain. cyclobenzap Yes [id number] 5mg Take 1 Univers rine 5 mg 9-12 [id number] tablet by ity of tablet 00:00: mouth at [place] 00 bedtime. Medical Branch naproxen Yes [id number] 250mg Take 1 Univers 250 mg 9-12 [id number] tablet by ity of tablet 00:00: mouth 2 [place] (two) Medical times Branch daily with meals. pentazocine Yes [id number] 1{tbl} Take 1 Univers -naloxone 9-12 [id number] tablet by ity of 50-0.5 mg 00:00: mouth [place] tablet 00 every 6 Medical (six) Branch hours as needed for Pain. cyclobenzap Yes [id number] 5mg Take 1 Univers rine 5 mg 9-12 [id number] tablet by ity of tablet 00:00: mouth at [place] 00 bedtime. Medical Branch naproxen Yes [id number] 250mg Take 1 Univers 250 mg 9-12 [id number] tablet by ity of tablet 00:00: mouth 2 [place] (two) Medical times Branch daily with meals. pentazocine Yes [id number] 1{tbl} Take 1 Univers -naloxone 9-12 [id number] tablet by ity of 50-0.5 mg 00:00: mouth [place] tablet 00 every 6 Medical (six) Branch hours as needed for Pain. cyclobenzap Yes [id number] 5mg Take 1 Univers rine 5 mg 9-12 [id number] tablet by ity of tablet 00:00: mouth at [place] 00 bedtime. Medical Branch naproxen Yes [id number] 250mg Take 1 Univers 250 mg 9-12 [id number] tablet by ity of tablet 00:00: mouth 2 (two) Medical times Branch daily with meals. pentazocine Yes [id number] 1{tbl} Take 1 Univers -naloxone 9-12 [id number] tablet by ity of 50-0.5 mg 00:00: mouth [place] tablet 00 every 6 Medical (six) Branch hours as needed for Pain. cyclobenzap Yes [id number] 5mg Take 1 Univers rine 5 mg 9-12 [id number] tablet by ity of tablet 00:00: mouth at [place] 00 bedtime. Medical Branch naproxen Yes [id number] 250mg Take 1 Univers 250 mg 9-12 [id number] tablet by ity of tablet 00:00: mouth 2 (two) Medical times Branch daily with meals. pentazocine Yes [id number] 1{tbl} Take 1 Univers -naloxone 9-12 [id number] tablet by ity of 50-0.5 mg 00:00: mouth [place] tablet 00 every 6 Medical (six) Branch hours as needed for Pain. cyclobenzap Yes [id number] 5mg Take 1 Univers rine 5 mg 9-12 [id number] tablet by ity of tablet 00:00: mouth at [place] 00 bedtime. Medical Branch naproxen Yes [id number] 250mg Take 1 Univers 250 mg 9-12 [id number] tablet by ity of tablet 00:00: mouth 2 (two) Medical times Branch daily with meals. pentazocine Yes [id number] 1{tbl} Take 1 Univers -naloxone 9-12 [id number] tablet by ity of 50-0.5 mg 00:00: mouth [place] tablet 00 every 6 Medical (six) Branch hours as needed for Pain. cyclobenzap 2019- Yes [id number] 5mg Take 1 Univers rine 5 mg 9-12 [id number] tablet by ity of tablet 00:00: mouth at [place] 00 bedtime. Medical Branch naproxen 2018-0 Yes [id number] 250mg Take 1 Univers 250 mg 9-12 [id number] tablet by ity of tablet 00:00: mouth 2 00 (two) Medical times Branch daily with meals. pentazocine 2019-0 Yes [id number] 1{tbl} Take 1 Univers -naloxone 9-12 [id number] tablet by ity of 50-0.5 mg 00:00: mouth [place] tablet 00 every 6 Medical (six) Branch hours as needed for Pain. cyclobenzap Yes [id number] 5mg Take 1 Univers rine 5 mg 9-12 [id number] tablet by ity of tablet 00:00: mouth at [place] 00 bedtime. Medical Branch naproxen 2018- Yes [id number] 250mg Take 1 Univers 250 mg 9-12 [id number] tablet by ity of tablet 00:00: mouth 2 [place] (two) Medical times Branch daily with meals. pentazocine 2018- Yes [id number] 1{tbl} Take 1 Univers -naloxone 9-12 [id number] tablet by ity of 50-0.5 mg 00:00: mouth [place] tablet 00 every 6 Medical (six) Branch hours as needed for Pain. cyclobenzap 2018- Yes [id number] 5mg Take 1 Univers rine 5 mg 9-12 [id number] tablet by ity of tablet 00:00: mouth at [place] 00 bedtime. Medical Branch naproxen 2018-0 Yes [id number] 250mg Take 1 Univers 250 mg 9-12 [id number] tablet by ity of tablet 00:00: mouth 2 [place] (two) Medical times Branch daily with meals. pentazocine 2019-0 Yes [id number] 1{tbl} Take 1 Univers -naloxone 9-12 [id number] tablet by ity of 50-0.5 mg 00:00: mouth [place] tablet 00 every 6 Medical (six) Branch hours as needed for Pain. cyclobenzap 2018- Yes [id number] 5mg Take 1 Univers rine 5 mg 9-12 [id number] tablet by ity of tablet 00:00: mouth at [place] 00 bedtime. Medical Branch naproxen Yes [id number] 250mg Take 1 Univers 250 mg 9-12 [id number] tablet by ity of tablet 00:00: mouth 2 (two) Medical times Branch daily with meals. pentazocine Yes [id number] 1{tbl} Take 1 Univers -naloxone 9-12 [id number] tablet by ity of 50-0.5 mg 00:00: mouth [place] tablet 00 every 6 Medical (six) Branch hours as needed for Pain. cyclobenzap Yes [id number] 5mg Take 1 Univers rine 5 mg 9-12 [id number] tablet by ity of tablet 00:00: mouth at [place] 00 bedtime. Medical Branch naproxen Yes [id number] 250mg Take 1 Univers 250 mg 9-12 [id number] tablet by ity of tablet 00:00: mouth 2 (two) Medical times Branch daily with meals. pentazocine Yes [id number] 1{tbl} Take 1 Univers -naloxone 9-12 [id number] tablet by ity of 50-0.5 mg 00:00: mouth [place] tablet 00 every 6 Medical (six) Branch hours as needed for Pain. cyclobenzap Yes [id number] 5mg Take 1 Univers rine 5 mg 9-12 [id number] tablet by ity of tablet 00:00: mouth at [place] 00 bedtime. Medical Branch naproxen Yes [id number] 250mg Take 1 Univers 250 mg 9-12 [id number] tablet by ity of tablet 00:00: mouth 2 [place] (two) Medical times Branch daily with meals. pentazocine Yes [id number] 1{tbl} Take 1 Univers -naloxone 9-12 [id number] tablet by ity of 50-0.5 mg 00:00: mouth [place] tablet 00 every 6 Medical (six) Branch hours as needed for Pain. cyclobenzap Yes [id number] 5mg Take 1 Univers rine 5 mg 9-12 [id number] tablet by ity of tablet 00:00: mouth at [place] 00 bedtime. Medical Branch naproxen Yes [id number] 250mg Take 1 Univers 250 mg 9-12 [id number] tablet by ity of tablet 00:00: mouth 2 (two) Medical times Branch daily with meals. pentazocine Yes [id number] 1{tbl} Take 1 Univers -naloxone 9-12 [id number] tablet by ity of 50-0.5 mg 00:00: mouth [place] tablet 00 every 6 Medical (six) Branch hours as needed for Pain. cyclobenzap Yes [id number] 5mg Take 1 Univers rine 5 mg 9-12 [id number] tablet by ity of tablet 00:00: mouth at [place] 00 bedtime. Medical Branch naproxen Yes [id number] 250mg Take 1 Univers 250 mg 9-12 [id number] tablet by ity of tablet 00:00: mouth 2 [place] 00 (two) Medical times Branch daily with meals. pentazocine Yes [id number] 1{tbl} Take 1 Univers -naloxone 9-12 [id number] tablet by ity of 50-0.5 mg 00:00: mouth [place] tablet 00 every 6 Medical (six) Branch hours as needed for Pain. cyclobenzap Yes [id number] 5mg Take 1 Univers rine 5 mg 9-12 [id number] tablet by ity of tablet 00:00: mouth at [place] 00 bedtime. Medical Branch naproxen Yes [id number] 250mg Take 1 Univers 250 mg 9-12 [id number] tablet by ity of tablet 00:00: mouth 2 [place] 00 (two) Medical times Branch daily with meals. pentazocine Yes [id number] 1{tbl} Take 1 Univers -naloxone 9-12 [id number] tablet by ity of 50-0.5 mg 00:00: mouth [place] tablet 00 every 6 Medical (six) Branch hours as needed for Pain. cyclobenzap Yes [id number] 5mg Take 1 Univers rine 5 mg 9-12 [id number] tablet by ity of tablet 00:00: mouth at [place] 00 bedtime. Medical Branch naproxen Yes [id number] 250mg Take 1 Univers 250 mg 9-12 [id number] tablet by ity of tablet 00:00: mouth 2 [place] 00 (two) Medical times Branch daily with meals. pentazocine Yes [id number] 1{tbl} Take 1 Univers -naloxone 9-12 [id number] tablet by ity of 50-0.5 mg 00:00: mouth [place] tablet 00 every 6 Medical (six) Branch hours as needed for Pain. cyclobenzap Yes [id number] 5mg Take 1 Univers rine 5 mg 11-19 [id number] tablet by ity of tablet 00:00: mouth at [place] 00 bedtime. Medical Branch naproxen 2018-0 Yes [id number] 250mg Take 1 [facility] 250 mg 11-19 [id number] tablet by ity of tablet 00:00: mouth 2 [place] 00 (two) Medical times Branch daily with meals. pentazocine Yes [id number] 1{tbl} Take 1 Univers -naloxone 11-19 [id number] tablet by ity of 50-0.5 mg 00:00: mouth [place] tablet 00 every 6 Medical (six) Branch hours as needed for Pain. cyclobenzap Yes [id number] 5mg Take 1 [facility] rine 5 mg 11-19 [id number] tablet by ity of tablet 00:00: mouth at [place] 00 bedtime. Medical Branch acetaminoph 2019- No [id number] 650mg Take 2 [facility] en 11-1918 [id number] tablets by ity of (TYLENOL) 00:00: 04:59 [place] 4 [place] 325 [place] 00 :00 (four) Medical tablet times Branch daily for 5 days. This is the maximum safe dose for a healthy adult. OMEPRAZOLE Yes Take by Uni vers MAGNESIUM 6-01 mouth. ity of (PRILOSEC 19:24: [place] OTC ORAL) 51 Medical Branch selexipag Yes Take by Univ ers (UPTRAVI) 6- mouth. ity of 1,000 mcg 19:24: [place] Tab 51 Medical Branch CITALOPRAM Yes Take by Uni vers HYDROBROMID 6- mouth. ity of E (CELEXA 19:24: [place] ORAL) 51 Medical Branch CARVEDILOL Yes Take by Uni vers ORAL 6-01 mouth. ity of 19:24: [place] 51 Medical Branch OMEPRAZOLE Yes Take by Uni vers MAGNESIUM 6-01 mouth. ity of (PRILOSEC 19:24: [place] OTC ORAL) 51 Medical Branch selexipag Yes Take by Univ ers (UPTRAVI) 6- mouth. ity of 1,000 mcg 19:24: [place] Tab 51 Medical Branch CITALOPRAM 2016-0 Yes Take by Uni vers HYDROBROMID 6-01 mouth. ity of E (CELEXA 19:24: [place] ORAL) 51 Medical Branch CARVEDILOL 2016-0 Yes Take by Uni vers ORAL 6 mouth. ity of 19:24: [place] [address] Medical Branch OMEPRAZOLE 0 Yes Take by Uni vers MAGNESIUM 6-01 mouth. ity of (PRILOSEC 19:24: [place] OTC ORAL) 51 Medical Branch selexipag 2015-0 Yes Take by [facility] [place] ers (UPTRAVI) 6 mouth. ity of 1,000 mcg 19:24: [place] Tab 51 Medical Branch CITALOPRAM 0 Yes Take by Uni vers HYDROBROMID 6 mouth. ity of E (CELEXA 19:24: [place] ORAL) 51 Medical Branch CARVEDILOL Yes Take by Uni vers ORAL 6 mouth. ity of 19:24: [place] [address] Medical Branch OMEPRAZOLE Yes Take by Uni vers MAGNESIUM 6-01 mouth. ity of (PRILOSEC 19:24: [place] OTC ORAL) 51 Medical Branch OMEPRAZOLE 0 Yes Take by Uni vers MAGNESIUM 6-01 mouth. ity of (PRILOSEC 19:24: [place] OTC ORAL) 51 Medical Branch selexipag Yes Take by [facility] [place] ers (UPTRAVI) 6 mouth. ity of 1,000 mcg 19:24: [place] Tab Medical Branch CITALOPRAM Yes Take by Uni vers HYDROBROMID 6 mouth. ity of E (CELEXA 19:24: [place] ORAL) 51 Medical Branch CARVEDILOL 2015-0 Yes Take by Uni vers ORAL 6 mouth. ity of 19:24: [place] [address] Medical Branch selexipag Yes Take by [facility] [place] ers (UPTRAVI) 6 mouth. ity of 1,000 mcg 19:24: [place] Tab Medical Branch OMEPRAZOLE 2016-0 Yes Take by Uni vers MAGNESIUM 6-01 mouth. ity of (PRILOSEC 19:24: [place] OTC ORAL) 51 Medical Branch CITALOPRAM 0 Yes Take by Uni vers HYDROBROMID 6-01 mouth. ity of E (CELEXA 19:24: [place] ORAL) 51 Medical Branch selexipag 0 Yes Take by [facility] [place] ers (UPTRAVI) 6 mouth. ity of 1,000 mcg 19:24: [place] Tab Medical Branch CITALOPRAM 2016-0 Yes Take by Uni vers HYDROBROMID 08-08 mouth. ity of E (CELEXA 19:24: [place] ORAL) 51 Medical Branch CARVEDILOL Yes Take by Uni vers ORAL 08-08 mouth. ity of 19:24: [place] [address] Medical Branch CARVEDILOL Yes Take by Uni vers ORAL 08-08 mouth. ity of 19:24: [place] [address] Medical Branch OMEPRAZOLE 2016-0 Yes Take by Uni vers MAGNESIUM 6 mouth. ity of (PRILOSEC 19:24: [place] OTC ORAL) 51 Medical Branch selexipag Yes Take by [facility] [place] ers (UPTRAVI) 08-08 mouth. ity of 1,000 mcg 19:24: [place] [facility] Medical Branch CITALOPRAM Yes Take by Uni vers HYDROBROMID 08-08 mouth. ity of E (CELEXA 19:24: [place] ORAL) 51 Medical Branch CARVEDILOL Yes Take by Uni vers ORAL 08-08 mouth. ity of 19:24: [place] [address] Medical Branch OMEPRAZOLE Yes Take by Uni vers MAGNESIUM 08-08 mouth. ity of (PRILOSEC 19:24: [place] OTC ORAL) 51 Medical Branch selexipag Yes Take by [facility] [place] ers (UPTRAVI) 08-08 mouth. ity of 1,000 mcg 19:24: [place] Tab Medical Branch CITALOPRAM Yes Take by Uni vers HYDROBROMID 08-08 mouth. ity of E (CELEXA 19:24: [place] ORAL) 51 Medical Branch CARVEDILOL Yes Take by Uni vers ORAL 08-08 mouth. ity of 19:24: [place] [address] Medical Branch OMEPRAZOLE 20160 Yes Take by Uni vers MAGNESIUM 6-01 mouth. ity of (PRILOSEC 19:24: [place] OTC ORAL) 51 Medical Branch selexipag Yes Take by [facility] [place] ers (UPTRAVI) 6 mouth. ity of 1,000 mcg 19:24: [place] Tab Medical Branch CITALOPRAM Yes Take by Uni vers HYDROBROMID 6 mouth. ity of E (CELEXA 19:24: [place] ORAL) 51 Medical Branch CARVEDILOL 20160 Yes Take by Uni vers ORAL 6-01 mouth. ity of 19:24: [place] [address] Medical Branch OMEPRAZOLE 2016-0 Yes Take by Uni vers MAGNESIUM 6-01 mouth. ity of (PRILOSEC 19:24: [place] OTC ORAL) 51 Medical Branch selexipag Yes Take by Univ ers (UPTRAVI) 6- mouth. ity of 1,000 mcg 19:24: [place] Tab Medical Branch CITALOPRAM 0 Yes Take by Uni vers HYDROBROMID 6-01 mouth. ity of E (CELEXA 19:24: [place] ORAL) 51 Medical Branch CARVEDILOL Yes Take by Uni vers ORAL 6- mouth. ity of 19:24: [place] [address] Medical Branch OMEPRAZOLE 2016 Yes Take by Uni vers MAGNESIUM 6-01 mouth. ity of (PRILOSEC 19:24: [place] OTC ORAL) 51 Medical Branch selexipag Yes Take by [facility] [place] ers (UPTRAVI) 6- mouth. ity of 1,000 mcg 19:24: [place] Tab Medical Branch CITALOPRAM Yes Take by Uni vers HYDROBROMID 6-01 mouth. ity of E (CELEXA 19:24: [place] ORAL) 51 Medical Branch CARVEDILOL Yes Take by Uni vers ORAL 6- mouth. ity of 19:24: [place] [address] Medical Branch OMEPRAZOLE Yes Take by Uni vers MAGNESIUM 6-01 mouth. ity of (PRILOSEC 19:24: [place] OTC ORAL) 51 Medical Branch selexipag Yes Take by [facility] [place] ers (UPTRAVI) 6-01 mouth. ity of 1,000 mcg 19:24: [place] Tab Medical Branch CITALOPRAM 20160 Yes Take by Uni vers HYDROBROMID 6-01 mouth. ity of E (CELEXA 19:24: [place] ORAL) 51 Medical Branch CARVEDILOL 0 Yes Take by Uni vers ORAL 6-01 mouth. ity of 19:24: [place] [address] Medical Branch OMEPRAZOLE 20160 Yes Take by Uni vers MAGNESIUM 6-01 mouth. ity of (PRILOSEC 19:24: [place] OTC ORAL) 51 Medical Branch selexipag Yes Take by Univ ers (UPTRAVI) 6 mouth. ity of 1,000 mcg 19:24: [place] Tab 51 Medical Branch CITALOPRAM 20160 Yes Take by Uni vers HYDROBROMID 6 mouth. ity of E (CELEXA 19:24: [place] ORAL) 51 Medical Branch CARVEDILOL Yes Take by Uni vers ORAL 6 mouth. ity of 19:24: [place] [address] Medical Branch OMEPRAZOLE 20160 Yes Take by Uni vers MAGNESIUM 6-01 mouth. ity of (PRILOSEC 19:24: [place] OTC ORAL) 51 Medical Branch selexipag Yes Take by [facility] [place] ers (UPTRAVI) 6 mouth. ity of 1,000 mcg 19:24: [place] [facility] Medical Branch CITALOPRAM Yes Take by Uni vers HYDROBROMID 6 mouth. ity of E (CELEXA 19:24: [place] ORAL) 51 Medical Branch CARVEDILOL Yes Take by Uni vers ORAL 6 mouth. ity of 19:24: [place] [address] Medical Branch OMEPRAZOLE 0 Yes Take by Uni vers MAGNESIUM 6-01 mouth. ity of (PRILOSEC 19:24: [place] OTC ORAL) 51 Medical Branch selexipag Yes Take by [facility] [place] ers (UPTRAVI) 6 mouth. ity of 1,000 mcg 19:24: [place] [address] Medical Branch CITALOPRAM Yes Take by Uni vers HYDROBROMID 6 mouth. ity of E (CELEXA 19:24: [place] ORAL) 51 Medical Branch CARVEDILOL Yes Take by Uni vers ORAL 6-01 mouth. ity of 19:24: [place] [address] Medical Branch OMEPRAZOLE 2016-0 Yes Take by Uni vers MAGNESIUM 6-01 mouth. ity of (PRILOSEC 19:24: [place] OTC ORAL) 51 Medical Branch selexipag Yes Take by Univ ers (UPTRAVI) 6-01 mouth. ity of 1,000 mcg 19:24: [place] [address] Medical Branch CITALOPRAM 20160 Yes Take by Uni vers HYDROBROMID 6-01 mouth. ity of E (CELEXA 19:24: [place] ORAL) 51 Medical Branch CARVEDILOL Yes Take by Uni vers ORAL 6 mouth. ity of 19:24: [place] [address] Medical Branch OMEPRAZOLE 0 Yes Take by Uni vers MAGNESIUM 6-01 mouth. ity of (PRILOSEC 19:24: [place] OTC ORAL) Medical Branch selexipag Yes Take by [facility] [place] ers (UPTRAVI) 6 mouth. ity of 1,000 mcg 19:24: [place] Tab Medical Branch CITALOPRAM Yes Take by Uni vers HYDROBROMID 6- mouth. ity of E (CELEXA 19:24: [place] ORAL) 51 Medical Branch CARVEDILOL Yes Take by Uni vers ORAL 6 mouth. ity of 19:24: [place] [address] Medical Branch OMEPRAZOLE Yes Take by Uni vers MAGNESIUM 6-01 mouth. ity of (PRILOSEC 19:24: [place] OTC ORAL) Medical Branch selexipag Yes Take by [facility] [place] ers (UPTRAVI) 6 mouth. ity of 1,000 mcg 19:24: [place] [address] Medical Branch CITALOPRAM Yes Take by Uni vers HYDROBROMID 6- mouth. ity of E (CELEXA 19:24: [place] ORAL) Medical Branch CARVEDILOL Yes Take by Uni vers ORAL 6 mouth. ity of 19:24: [place] [address] Medical Branch OMEPRAZOLE Yes Take by Uni vers MAGNESIUM 6-01 mouth. ity of (PRILOSEC 19:24: [place] OTC ORAL) 51 Medical Branch selexipag Yes Take by [facility] [place] ers (UPTRAVI) 6 mouth. ity of 1,000 mcg 19:24: [place] [address] Medical Branch CITALOPRAM Yes Take by Uni vers HYDROBROMID 6-01 mouth. ity of E (CELEXA 19:24: [place] ORAL) Medical Branch CARVEDILOL 0 Yes Take by Uni vers ORAL 6-01 mouth. ity of 19:24: [place] [address] Medical Branch OMEPRAZOLE 0 Yes Take by Uni vers MAGNESIUM 6-01 mouth. ity of (PRILOSEC 19:24: [place] OTC ORAL) Medical Branch selexipag 2016-0 Yes Take by [facility] [place] ers (UPTRAVI) 6 mouth. ity of 1,000 mcg 19:24: [place] Tab Medical Branch CITALOPRAM 2016-0 Yes Take by Uni vers HYDROBROMID 6 mouth. ity of E (CELEXA 19:24: [place] ORAL) 51 Medical Branch CARVEDILOL 2016-0 Yes Take by Uni vers ORAL 6 mouth. ity of 19:24: [place] [address] Medical Branch OMEPRAZOLE 2016-0 Yes Take by Uni vers MAGNESIUM 6-01 mouth. ity of (PRILOSEC 19:24: [place] OTC ORAL) 51 Medical Branch selexipag 2016-0 Yes Take by [facility] [place] ers (UPTRAVI) 6 mouth. ity of 1,000 mcg 19:24: [place] [facility] Medical Branch CITALOPRAM 2016-0 Yes Take by Uni vers HYDROBROMID 6 mouth. ity of E (CELEXA 19:24: [place] ORAL) 51 Medical Branch CARVEDILOL 2016-0 Yes Take by Uni vers ORAL 08-08 mouth. ity of 19:24: [place] [address] Medical Branch OMEPRAZOLE 2016-0 Yes Take by Uni vers MAGNESIUM 6-01 mouth. ity of (PRILOSEC 19:24: [place] OTC ORAL) 51 Medical Branch selexipag 2015-0 Yes Take by [facility] [place] ers (UPTRAVI) 6 mouth. ity of 1,000 mcg 19:24: [place] [address] Medical Branch CITALOPRAM 0 Yes Take by Uni vers HYDROBROMID 08-08 mouth. ity of E (CELEXA 19:24: [place] ORAL) 51 Medical Branch CARVEDILOL 2016-0 Yes Take by Uni vers ORAL 08-08 mouth. ity of 19:24: [place] [address] Medical Branch OMEPRAZOLE 2016-0 Yes Take by Uni vers MAGNESIUM 6-01 mouth. ity of (PRILOSEC 19:24: [place] OTC ORAL) 51 Medical Branch selexipag 2016-0 Yes Take by [facility] [place] ers (UPTRAVI) 6 mouth. ity of 1,000 mcg 19:24: [place] [address] Medical Branch CITALOPRAM 20160 Yes Take by Uni vers HYDROBROMID 601 mouth. ity of E (CELEXA 19:24: [place] ORAL) 51 Medical Branch CARVEDILOL 2016-0 Yes Take by Uni vers ORAL 6 mouth. ity of 19:24: [place] [address] Medical Branch OMEPRAZOLE 20160 Yes Take by Uni vers MAGNESIUM 6- mouth. ity of (PRILOSEC 19:24: [place] OTC ORAL) 51 Medical Branch selexipag Yes Take by [facility] [place] ers (UPTRAVI) 6 mouth. ity of 1,000 mcg 19:24: [place] Tab 51 Medical Branch CITALOPRAM Yes Take by Uni vers HYDROBROMID 6 mouth. ity of E (CELEXA 19:24: [place] ORAL) 51 Medical Branch CARVEDILOL Yes Take by Uni vers ORAL 6 mouth. ity of 19:24: [place] [address] Medical Branch OMEPRAZOLE Yes Take by Uni vers MAGNESIUM 6 mouth. ity of (PRILOSEC 19:24: [place] OTC ORAL) Medical Branch selexipag Yes Take by [facility] [place] ers (UPTRAVI) 6 mouth. ity of 1,000 mcg 19:24: [place] Tab Medical Branch CITALOPRAM Yes Take by Uni vers HYDROBROMID 08-08 mouth. ity of E (CELEXA 19:24: [place] ORAL) Medical Branch CARVEDILOL Yes Take by Uni vers ORAL 08-08 mouth. ity of 19:24: [place] [address] Medical Branch OMEPRAZOLE Yes Take by Uni vers MAGNESIUM 6- mouth. ity of (PRILOSEC 19:24: [place] OTC ORAL) 51 Medical Branch selexipag Yes Take by [facility] [place] ers (UPTRAVI) 6 mouth. ity of 1,000 mcg 19:24: [place] Tab Medical Branch CITALOPRAM Yes Take by Uni vers HYDROBROMID 6 mouth. ity of E (CELEXA 19:24: [place] ORAL) 51 Medical Branch CARVEDILOL 2015-0 Yes Take by Uni vers ORAL 6 mouth. ity of 19:24: [place] [address] Medical Branch OMEPRAZOLE 20160 Yes Take by Uni vers MAGNESIUM 6-01 mouth. ity of (PRILOSEC 19:24: [place] OTC ORAL) 51 Medical Branch selexipag Yes Take by [facility] [place] ers (UPTRAVI) 6 mouth. ity of 1,000 mcg 19:24: [place] Tab 51 Medical Branch CITALOPRAM 2015-0 Yes Take by Uni vers HYDROBROMID 08-08 mouth. ity of E (CELEXA 19:24: [place] ORAL) 51 Medical Branch CARVEDILOL 2015-0 Yes Take by Uni vers ORAL 08-08 mouth. ity of 19:24: [place] 51 Medical Branch losartan Yes Univers (COZAAR) 50 3-20 ity of mg tablet 00:00: [place] 00 Medical Branch losartan 0 Yes Univers (COZAAR) 50 3-20 ity of mg tablet 00:00: [place] 00 Medical Branch losartan Yes Univers (COZAAR) 50 3-20 ity of mg tablet 00:00: [place] 00 Medical Branch losartan Yes Univers (COZAAR) 50 3-20 ity of mg tablet 00:00: [place] 00 Medical Branch losartan Yes Univers (COZAAR) 50 3-20 ity of mg tablet 00:00: [place] 00 Medical Branch losartan 0 Yes Univers (COZAAR) 50 3-20 ity of mg tablet 00:00: [place] 00 Medical Branch losartan 0 Yes Univers (COZAAR) 50 3-20 ity of mg tablet 00:00: [place] 00 Medical Branch losartan 0 Yes Univers (COZAAR) 50 3-20 ity of mg tablet 00:00: [place] 00 Medical Branch losartan 0 Yes Univers (COZAAR) 50 3-20 ity of mg tablet 00:00: [place] 00 Medical Branch losartan 0 Yes Univers (COZAAR) 50 3-20 ity of mg tablet 00:00: [place] 00 Medical Branch losartan 0 Yes Univers (COZAAR) 50 3-20 ity of mg tablet 00:00: [place] 00 Medical Branch losartan 0 Yes Univers (COZAAR) 50 3-20 ity of mg tablet 00:00: [place] 00 Medical Branch losartan 0 Yes Univers (COZAAR) 50 3-20 ity of mg tablet 00:00: [place] 00 Medical Branch losartan 0 Yes Univers (COZAAR) 50 3-20 ity of mg tablet 00:00: [place] 00 Medical Branch losartan 0 Yes Univers (COZAAR) 50 3-20 ity of mg tablet 00:00: [place] 00 Medical Branch losartan Yes Univers (COZAAR) 50 3-20 ity of mg tablet 00:00: [place] [facility] losartan Yes Univers (COZAAR) 50 3-20 ity of mg tablet 00:00: [place] [facility] losartan Yes Univers (COZAAR) 50 3-20 ity of mg tablet 00:00: [place] [facility] losartan Yes Univers (COZAAR) 50 3-20 ity of mg tablet 00:00: [place] [facility] losartan Yes Univers (COZAAR) 50 3-20 ity of mg tablet 00:00: [place] [facility] losartan Yes Univers (COZAAR) 50 3-20 ity of mg tablet 00:00: [place] [facility] losartan Yes Univers (COZAAR) 50 3-20 ity of mg tablet 00:00: [place] [facility] Branch losartan Yes Univers (COZAAR) 50 3-20 ity of mg tablet 00:00: [place] [facility] losartan Yes Univers (COZAAR) 50 3-20 ity of mg tablet 00:00: [place] [facility] losartan Yes Univers (COZAAR) 50 3-20 ity of mg tablet 00:00: [place] [facility] losartan Yes Univers (COZAAR) 50 3-20 ity of mg tablet 00:00: [place] [facility] losartan Yes Univers (COZAAR) 50 3-20 ity of mg tablet 00:00: [place] [facility] Celexa Celexa Yes Na Perez 1 tablet Comm on [facility] Baclofen Baclofen Yes Na Perez as Comm on directed [facility] Prilosec Prilosec Yes Na Perez 1 capsule Common 30 minutes [facility] before - [facility] morning meal [facility] Ambien Ambien Yes Na Perez TAKE 1 Common TABLET BY Spirit MOUTH - [facility] EVERY DAY [facility] AT BEDTIME [facility] NEEDED Medical [place] Amlodipine- Amlodipine- Yes Na Perez 1 tablet Common Olmesartan Olmesartan Spi rit [facility] Vital Signs Vital Name Observation Time Observation Value Comments Source Body height 2019-06-10 12:54:00 157.5 cm [facility] Body weight 2019-06-10 12:54:00 86.183 kg [facility] [place] [facility] BMI 2019-06-10 12:54:00 34.75 kg/m2 [facility] [place] [facility] Body height 2019-06-10 12:54:00 157.5 cm [facility] [place] [facility] Body weight 2019-06-10 12:54:00 86.183 kg [facility] [place] [facility] BMI 2019-06-10 12:54:00 34.75 kg/m2 [facility] [place] [facility] Body height 2019-05-13 16:13:00 157.5 cm [facility] [place] [facility] Body weight 2019-05-13 16:13:00 86.183 kg [facility] [place] [facility] Branch BMI 2019-05-13 16:13:00 34.75 kg/m2 Univers[facility] of [facility] Body height 2019-05-11 19:33:00 157.5 cm Universi [facility] of [facility] [place] Body weight 2019-05-11 19:33:00 86.183 kg [facility] [place] [facility] Branch BMI 2019-05-11 19:33:00 34.75 kg/m2 [facility] [place] [facility] Systolic blood 2019-03-30 19:18:00 162 mm[Hg] Univer sity of pressure [facility] Diastolic blood 2019-03-30 19:18:00 84 mm[Hg] Unive rsity of pressure [facility] Heart rate 2019-03-30 19:18:00 76 /min Universi [facility] of [facility] Body height 2019-03-30 19:12:00 157.5 cm [facility] [place] [facility] Body weight 2019-03-30 19:12:00 86.183 kg [facility] [place] [facility] BMI 2019-03-30 19:12:00 34.75 kg/m2 [facility] [place] [facility] Systolic blood 2019-03-23 19:07:00 130 mm[Hg] Univer sity of pressure [facility] [place] [facility] Branch Diastolic blood 2019-03-23 19:07:00 75 mm[Hg] Unive rsity of pressure [facility] [place] Body height 2019-03-23 19:07:00 157.5 cm [facility] [place] [facility] Body weight 2019-03-23 19:07:00 86.183 kg Universi ty of [facility] BMI 2019-03-23 19:07:00 34.75 kg/m2 [facility] [place] [facility] Systolic blood 2018-11-27 15:19:00 116 mm[Hg] Univer sity of pressure [place] [facility] Diastolic blood 2018-11-27 15:19:00 67 mm[Hg] Unive rsity of [facility] Medical Branch Body height 2018-11-27 15:19:00 157.5 cm [facility] [place] [facility] Body weight 2018-11-27 15:19:00 86.183 kg [facility] [place] [facility] BMI 2018-11-27 15:19:00 34.75 kg/m2 [facility] [place] [facility] Systolic blood 2018-11-26 19:18:00 108 mm[Hg] Univer sity of pressure [place] [facility] Diastolic blood 2018-11-26 19:18:00 68 mm[Hg] Unive rsity of [facility] Medical Branch Body height 2018-11-26 19:18:00 157.5 cm [facility] [place] [facility] Body weight 2018-11-26 19:18:00 86.183 kg [facility] [place] [facility] BMI 2018-11-26 19:18:00 34.75 kg/m2 [facility] [place] [facility] Systolic blood 2018-11-20 01:12:00 150 mm[Hg] Univer sity of [facility] Medical Branch Diastolic blood 2018-11-20 01:12:00 86 [facility]Hg[facility] 2018-11-20 01:12:00 86 /min [facility] [place] [facility] Body temperature 2018-11-20 01:12:00 36.83 Mitra [facility] [place] [facility] [place] [facility] Respiratory rate 2018-11-20 01:12:00 18 /[facility] [place] [facility] Body height 2018-11-20 01:12:00 157.5 cm [facility] [place] [facility] Body weight 2018-11-20 01:12:00 86.183 kg [facility] [place] [facility] BMI 2018-11-20 01:12:00 34.75 kg/m2 [facility] [place] [facility] Oxygen saturation in 2018-11-20 01:12:00 98 /min [facility] Arterial blood by [facility] Pulse oximetry Branch Procedures Procedure Date / Time Performed Performing Clinician Sourc e XR CHEST 1 VW 2019-05-19 16:40:22 Elena Espino [facility] Medical Branch ASSIGNMENT OF BENEFITS 2019-05-19 15:54:41 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, No [facility] Name Medical Branch MR KNEE LEFT WO 2019-05-11 20:16:34 Elena Espino [facility] CONTRAST Medical Branch UNILATERAL VENOUS 2018-11-26 21:45:02 Chau Solano [facility] DUPLEX LOWER EXTREMITY Medical [place] BY VASCULAR LAB NOTICE OF PRIVACY 2018-11-26 20:46:54 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, No [facility] Name Medical Branch CONSENT/REFUSAL FOR 2018-11-26 20:46:39 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 Branch TREATMENT ASSIGNMENT OF BENEFITS 2018-11-26 20:46:20 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, No [facility] Medical Branch D-DIMER 2018-11-20 01:33:00 Louie Jerez [facility] NOTICE OF PRIVACY 2018-11-20 01:09:41 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, No [facility] Name Medical Branch CONSENT/REFUSAL FOR 2018-11-20 01:05:31 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 Medical Branch TREATMENT Encounters Start End Encounter Admission Attending Care Care Encounter Source Date/Time Date/Time Type Type Clinicians Facility Department ID 2021-07-26 Outpatient Perez, Na STLMLC STLMLC [id number] Common 08:45:01 [facility] 2021-06-27 Outpatient Perez, Na STLMLC STLMLC [id number] 2 Common 14:40:02 [facility] 2021-04-04 Outpatient Perez, Na STLMLC STLMLC [id number] 2 Common 13:35:08 [facility] 2021-04-04 Outpatient Perez, Na STLMLC STLMLC [id number] 2 Common 13:13:45 [id number] [facility] 2021-04-04 Outpatient Perez, Na STLMLC STLMLC [id number] 2 Common 13:04:57 [id number] [facility] 2021-04-04 Outpatient Perez, Na STLMLC STLMLC [id number] 2 Common 13:00:30 [id number] [facility] 2021-04-04 Outpatient Eprez, Na STLMLC STLMLC [id number] 2 Common 12:59:52 [id number] [facility] 2021-04-04 Outpatient Perez, Na STLMLC STLMLC [id number] 2 Common 12:51:20 [id number] [facility] 2021-04-04 Outpatient Perez, Na STLMLC STLMLC [id number] 2 Common 12:02:27 [id number] [facility] 2021-04-04 Outpatient Perez, Na STLMLC STLMLC [id number] 2 Common 12:01:03 [id number] [facility] 2021-04-04 Outpatient Perez, Na STLMLC STLMLC [id number] 2 Common 11:33:49 [id number] [facility] 2021-04-04 Outpatient Perez, Na STLMLC STLMLC [id number] 2 Common 11:33:44 [id number] [facility] 2021-04-04 Outpatient Perez, Na STLMLC STLMLC [id number] 2 Common 11:17:12 [id number] [facility] 2021-07-19 2021-07-19 ambulatory STLMLC STLMLC [id number] Common 00:00:00 00:00:00 [facility] 2021-07-17 2021-07-17 ambulatory STLMLC STLMLC [id number] Common 00:00:00 00:00:00 [facility] 2021-07-13 2021-07-13 ambulatory STLMLC STLMLC [id number] Common 00:00:00 00:00:00 [facility] 2021-06-29 2021-06-29 ambulatory STLMLC STLMLC [id number] Common 00:00:00 00:00:00 [facility] 2021-06-28 2021-06-28 ambulatory STLMLC STLMLC [id number] Common 00:00:00 00:00:00 [facility] 2021-06-02 2021-06-02 ambulatory STLMLC STLMLC [id number] Common 00:00:00 00:00:00 [facility] 2021-05-01 2021-05-01 ambulatory STLMLC STLMLC [id number] Common 00:00:00 00:00:00 [facility] 2021-04-03 2021-04-03 ambulatory STLMLC STLMLC [id number] Common 00:00:00 00:00:00 [facility] 2021-03-22 2021-03-22 ambulatory STLMLC STLMLC [id number] Common 00:00:00 00:00:00 [facility] 2021-03-22 2021-03-22 ambulatory STLMLC STLMLC [id number] Common 00:00:00 00:00:00 [facility] 2021-02-08 2021-02-08 ambulatory STLMLC STLMLC [id number] Common 00:00:00 00:00:00 [facility] 2021-01-31 2021-01-31 ambulatory STLMLC STLMLC [id number] Common 00:00:00 00:00:00 [facility] 2021-01-31 2021-01-31 ambulatory STLMLC STLMLC [id number] Common 00:00:00 00:00:00 [facility] 2020-11-24 2020-11-24 Outpatient STLMLC STLMLC [id number] Common 00:00:00 00:00:00 [facility] 2020-11-16 2020-11-16 Outpatient STLMLC STLMLC [id number] Common 00:00:00 00:00:00 [facility] 2020-10-13 2020-10-13 Outpatient STLMLC STLMLC [id number] Common 00:00:00 00:00:00 [facility] 2020-10-09 2020-10-09 Outpatient STLMLC STLMLC [id number] Common 00:00:00 00:00:00 [facility] 2020-08-182020-08-18 Outpatient STLMLC STLMLC [id number] Common 00:00:00 00:00:00 [facility] 2020-08-17 2020-08-17 Outpatient STLMLC STLMLC [id number] Common 00:00:00 00:00:00 [facility] 2020-08-14 2020-08-14 Outpatient STLMLC STLMLC [id number] Common 00:00:00 00:00:00 [facility] 2020-07-26 2020-07-26 Outpatient STLMLC STLMLC [id number] Common 00:00:00 00:00:00 [facility] 2020-07-26 2020-07-26 Outpatient STLMLC STLMLC [id number] Common 00:00:00 00:00:00 [facility] 2020-07-13 2020-07-13 Outpatient STLMLC STLMLC [id number] Common 00:00:00 00:00:00 [facility] 2020-06-22 2020-06-22 Outpatient STLMLC STLMLC [id number] Common 00:00:00 00:00:00 [facility] 2020-03-15 2020-03-15 Outpatient STLMLC STLMLC [id number] Common 00:00:00 00:00:00 [facility] 2020-01-14 2020-01-14 Outpatient STLMLC STLMLC [id number] Common 00:00:00 00:00:00 [facility] 2019-11-30 2019-11-30 Outpatient STLMLC STLMLC [id number] Common 00:00:00 00:00:00 [facility] 2019-11-16 2019-11-16 [facility] [id number] Common 15:00:00 15:00:[address] [facility] 2019-11-05 2019-11-05 [facility] [id number] Common 09:21:00 09:21:[address] [facility] 2019-10-29 2019-10-29 [facility] [id number] Common 11:34:00 11:34:[address] [facility] 2019-10-29 2019-10-29 [facility] [id number] Common 10:00:00 10:00:[address] [facility] 2019-10-28 2019-10-28 [facility] [id number] Common 14:09:00 14:09:[address] [facility] 2019-10-11 2019-10-11 [facility] [id number] Common 15:20:00 15:20:[address] [facility] 2019-10-07 2019-10-07 [facility] [id number] Common 10:56:00 10:56:00 t [facility] [address] [facility] 2019-10-07 2019-10-07 [facility] [id number] Common 10:00:00 10:00:[address] [facility] 2019-10-06 2019-10-06 [facility] [id number] Common 15:33:00 15:33:[address] [facility] 2019-10-06 2019-10-06 [facility] [id number] Common 13:46:00 13:46:[address] [facility] 2019-09-30 2019-09-30 [facility] [id number] Common 10:09:00 10:09:[address] [facility] 2019-08-29 2019-08-29 [facility] [id number] Common 03:04:00 03:04:[address] [facility] 2019-08-26 2019-08-26 [facility] [id number] Common 02:31:00 02:31:[address] [facility] 2019-08-16 2019-08-16 Outpatient C[place]lin [facility] [id number] Common 08:05:00 08:05:[address] [facility] 2019-08-13 2019-08-13 [facility] [id number] Common 13:00:00 13:00:[address] [facility] 2019-08-13 2019-08-13 Outpatient [place] [facility] [id number] Common 13:00:00 13:00:[address] [facility] 2019-06-10 2019-06-10 [facility] [id number] Univers 07:53:05 08:11:21 Visit Elena Reed [facility] [id number] it y of Surgical 4.2.7.2.686 Chance as Specialti [phone] Or dical es 198 [facility] 2019-06-10 2019-06-10 [facility] [id number] 07:53:05 08:11:21 Visit Elena Reed [facility] [id number] Surgical 4.2.7.2.686 Specialti [id number] es [address] [place] [address] 2019-06-10 2019-06-10 Outpatient R SRINIVAS [facility] [id number] Univers 08:00:00 08:00:00 ELENA [id number] [facility] 2019-06-10 2019-06-10 Outpatient R SRINIVAS [facility] [id number] Univers 08:00:00 08:00:00 ELENA [facility] 2019-06-10 2019-06-10 Telephone [facility] [id number] [facility] 00:00:00 00:00:00 Elena Reed [facility] [id number] it y of Surgical 4.2.7.2.686 Chance as Specialti [phone] Me dical es 198 [facility] 2019-06-10 2019-06-10 Telephone [facility] [id number] 00:00:00 00:00:00 Elena Hernández [id number] Surgical 4.2.7.2.686 Specialti [id number] es 198 [place] 2019-06-09 2019-06-09 Outpatient Marshal XIOMARA [facility] [id number] Univers 13:15:00 13:15:00 CHAU ity [facility] 2019-06-09 2019-06-09 Outpatient Marshal XIOMARA [facility] [id number] Univers 13:15:00 13:15:00 CHAU ity [facility] 2019-06-07 2019-06-07 Outpatient Marshal XIOMARA [facility] [id number] Univers 13:30:00 13:30:00 CHAU ity [facility] 2019-06-07 2019-06-07 Outpatient Marshal XIOMARA [facility] [id number] Univers 13:30:00 13:30:00 [facility] 2019-06-04 Outpatient Marshal XIOMARA [facility] [id number] Univers 09:00:00 09:00:00 CHAU [id number] ity [facility] 2019-06-04 2019-06-04 Outpatient Marshal XIOMARA [facility] [id number] Univers 09:00:00 09:00:00 [facility] 2019-06-03 2019-06-03 Outpatient Mrashal SOLANO [facility] [id number] Univers 09:15:00 09:15:00 CHAU [id number] ity [facility] 2019-06-03 2019-06-03 [facility] [id number] Univers 09:15:00 09:15:00 CHAU ity [facility] 2019-05-26 2019-05-26 [facility] Srinivas [facility] [id number] Univers 11:59:34 23:59:00 Encounter Elena BORJAS [id number] ity [facility] 4.2.7.2.686 [facility] [phone] [address] 2019-05-26 2019-05-26 [facility] NUT [id number] Univers 00:00:00 00:00:00 ELENA ity [facility] 2019-05-26 2019-05-26 Telephone Xiomara [facility] [id number] Univers 00:00:00 00:00:00 Chau [facility] 350.1.13.10 it y of Surgical 4.2.7.2.686 Chance as Specialti [id number] Or dical es 198 [facility] 2019-05-19 2019-05-19 Adobe Developer Chasity, Adc Lab Main [facility] [id number] Univers 11:06:52 11:21:52 Visit Elena Espino 350.1.13.10 ity [facility] 4.2.7.2.686 [place] [facility] [phone] Or dical nal [address] [employer] 2019-05-19 2019-05-19 [facility] [id number] Univers 11:07:51 11:14:00 ELENA rousecarlos [facility] 2019-05-19 2019-05-19 [facility] 1.2.840.114 [id number] Univers 11:00:00 11:14:00 Encounter Elena Garcia 350.1.13.10 ity [facility] 4.2.7.2.686 [place] [id number] [facility] [address] 2019-05-19 2019-05-19 [facility] [id number] [id number]-20 Univers 11:00:00 11:00:00 ELENA [id number] ity of [facility] 2019-05-19 2019-05-19 Orders Doctor DOLLY 1.2.840.114 [id number] Univers 00:00:00 00:00:00 Only Unassigned, JAYDEN 350.1.13.10 ity of [place] [facility] 4.2.7.2.686 Chance as [id number] [facility] [address] 2019-05-17 2019-05-17 Telephone [facility] 1.2.840.114 [id number] Univers 00:00:00 00:00:00 Elena Hernández 350.1.13.10 it y of Surgical 4.2.7.2.686 Chance as Specialti [phone] Or dical es 198 [facility] 2019-05-13 2019-05-13 Office Srinivas [facility] [id number] Univers 10:05:58 14:22:17 Visit Elena Hernández 350.1.13.10 it y of Surgical 4.2.7.2.686 Chance as Specialti [phone] Or dical es 198 [facility] 2019-05-13 2019-05-13 [facility] [id number] Univers 10:30:00 10:30:00 ELENA [facility] 2019-05-13 2019-05-13 [facility] [id number] Univers 10:30:00 10:30:[facility] 2019-05-11 [facility] [id number] Univers 11:50:30 23:59:00 [facility] 2019-05-11 2019-05-11 [facility] 1.2.840.114 [id number] Univers 11:50:00 23:59:00 Encounter Elena Garcia 350.1.13.10 ity [facility] 4.2.7.2.686 [place] [facility] [id number] [facility] [address] [place] [address] 2019-05-11 2019-05-11 [facility] [id number] Univers 00:00:00 00:00:00 [facility] 2019-04-27 2019-04-27 Telephone [facility] [id number] Univers 00:00:00 00:00:00 Chau [facility] 350.1.13.10 it y of Surgical 4.2.7.2.686 Chance as Specialti [phone] Or dical es 198 [facility] 2019-03-30 2019-03-30 Office [facility] 1.2.840.114 [id number] Univers 13:10:27 13:25:27 Visit Chau [facility] 350.1.13.10 it y of Surgical 4.2.7.2.686 Chance as Specialti [id number] Or dical es 198 [facility] 2019-03-23 2019-03-23 Office [facility] 1.2.840.114 [id number] Univers 13:05:56 13:27:49 Visit Chau Melendez [facility] 350.1.13.10 it y of Surgical 4.2.7.2.686 Chance as Specialti [id number] Or dical es 198 [facility] 2018-11-27 2018-11-27 Office [facility] 1.2.840.114 [id number] Univers 10:18:07 10:41:45 Visit Chau Melendez [facility] 350.1.13.10 it y of Surgical 4.2.7.2.686 Chance as Specialti [phone] Or dical es 198 [facility] 2018-11-26 2018-11-26 [facility] Elena Espino [facility] 1.2.840 .114 [id number] [facility] 15:54:44 23:59:00 Encounter Tech, Adc Cardio Vascular [place] 3 50.1.13.10 ity of [place] 4.2.7.2.686 [place] [id number] [facility] [address] [place] 2018-11-26 2018-11-26 [facility] 1.2.840.114 [id number] [facility] 14:40:06 15:53:00 Encounter Chau Melendez [facility] 350.1.13.10 ity of Surgical 4.2.7.2.686 Chance as Specialti [id number] Or dical es 809 [facility] 2018-11-26 2018-11-26 Office [facility] 1.2.840.114 [id number] Univers 14:04:15 15:34:29 Visit Chau Melendez [facility] 350.1.13.10 it y of Surgical 4.2.7.2.686 Chance as Specialti [id number] Or dical es 198 [facility] 2018-11-19 2018-11-19 Emergency [facility] [id number] Univers 20:24:29 21:34:00 Louie Garcia 350.1.13.10 i ty of [place] 4.2.7.2.686 [facility] [id number] [facility] 084 Branch Results Test Test Test Results Result Source Description Time Comments Comments XR CHEST 1 VW 2019-05- HISTORY: Preop. Univer sity of 11 FINDINGS: ?AP view of [facility] 16:46:19 the chest showed upper Br anch normal appearance of thecardiomediastinal silhouette. No acute pneumonia, pleural effusion,pulmonary congestion detected. Lower cervical ACDF surgical changes noted. CONCLUSIONS: No signs of acute cardiopulmonary disease. [facility], Radiant Results Inft User - 05/19/2019 11:47 AM CDTHISTORY: Preop.FINDINGS: AP view of the chest showed upper normal appearance of thecardiomediastinal silhouette. No acute pneumonia, pleural effusion,pulmonary congestion detected. Lower cervical ACDF surgical changes noted.CONCLUSIONS: No signs of acute cardiopulmonary disease. MR KNEE LEFT WO 2019-05- HISTORY: ?Pain in the [facility] 03 left knee and left knee T [facility] 20:23:06 catches and pops. Branch TECHNIQUE: MR imaging of the left knee [...] of medial meniscusextending into the body portion. [facility], Radiant Results Inft User - 05/11/2019 2:24 [...] into the body portion. CHEST 2 VIEWS 10:09:00 [place] [address] Patient Name: YANA KURTZ MR #: [id number] : 1945 Age/Sex: 73/F Req #: [id number] Adm Physician: Ordered by: SILVIA CM MD Report #: [id number] Location: OR Room/Bed: ___ Procedure: [id number] DX/CHEST 2 VIEWS Exam Date: 12/08/18 Exam Time: 0950 REPORT STATUS: Signed TECHNIQUE: Frontal and lateral views of the chest. INDICATION: PRE-OP [facility] ENDO [id number]. COMPARISON: None. FINDINGS: LINES/TUBES: None. LUNGS: [...] code = See_Comment [Autom ated message] The [id number]) system which ge nerated this result tra [...] diagnosis. Lab Interpretation Normal (test code = 58416-8) [facility]
--- NOTE | 2021-08-01 19:13 | ER ---
Nurse's Notes [facility] Name: Blanka Parker Age: 75 yrs Sex: Female : 1945 Arrival Date: 08/01/2021 Time: 18:38 Bed Waiting Private MD: Cesilia Billy Diagnosis: Supraclavicular mass Presentation: 08/01 18:45 Chief complaint: Patient states: noticed swelling to left side of neck/clavicle area on iw Friday , has gotten worse, her clavicle is tender to touch, states she did have a fall two weeks ago but did not fall on that side, has been waking up with headaches. Coronavirus screen: At this time, the client does not indicate any symptoms associated with coronavirus-19. Ebola Screen: Patient negative for fever greater than or equal to 101.5 degrees Fahrenheit, and additional compatible Ebola Virus Disease symptoms Patient denies exposure to infectious person. Patient denies travel to an Ebola-affected area in the 21 days before illness onset. No symptoms or risks identified at this time. Initial Sepsis Screen: Does the patient meet any 2 criteria? No. Patient's initial sepsis screen is negative. Does the patient have a suspected source of infection? No. Patient's initial sepsis screen is negative. Risk Assessment: Do you want to hurt yourself or someone else? Patient reports no desire to harm self or others. Onset of symptoms was July 30, 2021. 18:45 Method Of Arrival: Ambulatory iw 18:45 Acuity: PETEY 4 iw 18:45 Acuity: PETEY 3 iw Historical: - Allergies: 18:48 Codeine; iw 18:48 COLLAGENASE; iw 18:48 Demerol; iw 18:48 hydromorphone; iw 18:48 Latex, Natural Rubber; iw 18:48 Lidocaine; iw 18:48 PENICILLINS; iw 18:48 Sulfa (Sulfonamide Antibiotics); iw 18:48 venlafaxine; iw 18:48 Zanaflex; iw - PMHx: 18:48 degenerative joint disease; Diverticulitis; GERD; High Cholesterol; Hypertension; iw - PSHx: 18:48 neck fusion X 2; back; hysterectomy; Cholecystectomy; Appendectomy; bladder sling; iw - Immunization history:: Client reports having NOT received the Covid vaccine. - Social history:: Smoking status: . Screenin:56 Abuse screen: Denies threats or abuse. Denies injuries from another. Nutritional iw screening: No deficits noted. Tuberculosis screening: No symptoms or risk factors identified. Fall Risk None identified. Assessment: 18:55 General: Appears in no apparent distress. Behavior is calm, cooperative. Pain: iw Complains of pain in left clavicle. Neuro: Level of Consciousness is awake, alert, obeys commands, Oriented to person, place, time, situation. Cardiovascular: Patient's skin is warm and dry. Respiratory: Respiratory effort is even, unlabored, Respiratory pattern is regular, symmetrical. GI: Derm: Skin is intact, is healthy with good turgor. Musculoskeletal: Range of motion: intact in all extremities. Vital Signs: 18:45 BP 132 / 80; Pulse 95; Resp 16; Temp 97.6; Pulse Ox 99% on R/A; iw ED Course: 18:38 Patient arrived in ED. rg4 18:38 Cesilia Billy MD is Private Physician. rg4 18:48 Triage completed. iw 18:49 Arm band placed on. iw 18:54 Fernando Laboy PA is PHCP. [facility] 18:54 Gumaro Patel MD is Attending Physician. [facility] 18:55 Nereida Fuentes, SCOTTIE is Primary Nurse. iw 18:56 No provider procedures requiring assistance completed. Patient did not have IV access iw during this emergency room visit. 19:12 Arnav Mcintyre MD is Referral Physician. [facility] 19:20 Patient has correct armband on for positive identification. tw5 Administered Medications: No medications were administered Medication: 19:20 VIS not applicable for this client. tw5 Outcome: 19:12 Discharge ordered by . [facility] 19:19 Discharged to home tw5 19:19 Condition: good 19:19 Discharge instructions given to patient, Instructed on discharge instructions, follow up and referral plans. Demonstrated understanding of instructions, follow-up care. 19:20 Patient left the ED. tw5 Signatures: Fernando Laboy PA PA jmm Williams, Irene, RN RN Sayra Mcneal rg4 Renee Son tw5
--- NOTE | 2021-08-01 19:13 | EDPHYS ---
Physician Documentation [facility] Name: Blanka Parker Age: 75 yrs Sex: Female : 1945 Arrival Date: 08/01/2021 Time: 18:38 Bed Waiting Private MD: Cesilia Billy ED Physician Gumaro Patel HPI: 08/01 19:08 This 75 yrs old Female presents to ER via Ambulatory with complaints of Lump On Neck. jmm 19:08 The patient or guardian complains of swelling. Onset: The symptoms/episode jmm began/occurred gradually, 2 week(s) ago. This is a 75 year old female with a history of djd, diverticulitis, gerd, hlp, that presents to the ED with complaints of left supraclavicular swelling beginning approx 2 weeks ago. Patient denies fever or chills. . Historical: - Allergies: 18:48 Codeine; iw 18:48 COLLAGENASE; iw 18:48 Demerol; iw 18:48 hydromorphone; iw 18:48 Latex, Natural Rubber; iw 18:48 Lidocaine; iw 18:48 PENICILLINS; iw 18:48 Sulfa (Sulfonamide Antibiotics); iw 18:48 venlafaxine; iw 18:48 Zanaflex; iw - PMHx: 18:48 degenerative joint disease; Diverticulitis; GERD; High Cholesterol; Hypertension; iw - PSHx: 18:48 neck fusion X 2; back; hysterectomy; Cholecystectomy; Appendectomy; bladder sling; iw - Immunization history:: Client reports having NOT received the Covid vaccine. - Social history:: Smoking status: . ROS: 19:08 Constitutional: Negative for fever, chills, and weight loss, Cardiovascular: Negative jmm for chest pain, palpitations, and edema, Respiratory: Negative for shortness of breath, cough, wheezing, and pleuritic chest pain. 19:08 Neck: Positive for swelling, swollen nodes. 19:08 All other systems are negative. Exam: 19:08 Constitutional: This is a well developed, well nourished patient who is awake, alert, jmm and in no acute distress. Head/Face: atraumatic. Eyes: EOMI, no conjunctival erythema appreciated ENT: Moist Mucus Membranes Neck: Trachea midline, Supple 19:08 Cardiovascular: Regular rate and rhythm. No edema appreciated Respiratory: Normal respirations, no respiratory distress appreciated Abdomen/GI: Non distended, soft Back: Normal ROM Skin: General appearance color normal MS/ Extremity: Moves all extremities, no obvious deformities appreciated, no edema noted to the lower extremities Neuro: Awake and alert Psych: Behavior is normal, Mood is normal, Patient is cooperative and pleasant 19:08 Chest/axilla: Lymph nodes: supraclavicular nodes, palpable, tender, on the left. Vital Signs: 18:45 BP 132 / 80; Pulse 95; Resp 16; Temp 97.6; Pulse Ox 99% on R/A; iw MDM: 19:08 Patient medically screened. [facility] 19:10 Data reviewed: vital signs, nurses notes. Counseling: I had a detailed discussion with [facility] the patient and/or guardian regarding: the historical points, exam findings, and any diagnostic results supporting the discharge/admit diagnosis, the need for outpatient follow up, to return to the emergency department if symptoms worsen or persist or if there are any questions or concerns that arise at home. ED course: patient advised to follow up with gen surgery for further evaluation of swelling and the need for biopsy. Patient otherwise given strict return precautions. patient understood and agrees with the plan of care. . Administered Medications: No medications were administered Disposition Summary: 08/01/21 19:12 Discharge Ordered Location: Home [facility] Condition: Stable [facility] Diagnosis - Supraclavicular mass [facility] Followup: [facility] - With: Arnav Mcintyre MD - When: 2 - 3 days - Reason: Recheck today's complaints, Continuance of care, Re-evaluation by your physician Discharge Instructions: - Discharge Summary Sheet [facility] Forms: - Medication Reconciliation Form [facility] - Thank You Letter [facility] - Antibiotic Education [facility] - Prescription Opioid Use [facility] Addendum: 08/03/2021 06:58 Co-signature as Attending Physician, Gumaro Patel MD. r n Signatures: Fernando Laboy PA PA jmm Williams, Irene, RN RN iw Gumaro Patel MD MD rn
[2021-08-01 19:24] VITALS: BP 132/80; TEMP 97.6; O2SAT 99
== END 2021-08-01 19:20 | disposition home or self-care (01) ==
LOC: ER 18:36
DX: R22.1 Localized swelling, mass and lump, neck (principal); I10 Essential (primary) hypertension; Z88.0 Allergy status to penicillin; Z88.2 Allergy status to sulfonamides; Z88.5 Allergy status to narcotic agent; Z91.040 Latex allergy status; Z91.048 Other nonmedicinal substance allergy status
CPT/HCPCS: 99281

== ENCOUNTER 2022-08-28 16:52 | Observation (INO) | payer OTHER ==
--- OUTSIDE RECORDS SUMMARY | 2022-08-28 17:01 | XMS REPORT | Continuity of Care Document ---
:1945 Author Organization [facility] t Address [address] [place] [address] Care Team Providers Name Role Phone CRISTEL PEREZ Primary Care Physician Unavailable Ashwini Dixon Attending Clinician Unavailable Cristel PEREZ Attending Clinician Unavailable BRYNN BROOKS Attending Clinician Unavailable [facility] TECHNICIANBrynn Ge Attending Clinician Unknown, Attending Attending Clinician Unavailable 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, [place] Attending Clinician Unavailable Elena Espino MD Attending Clinician ELENA ESPINO Attending Clinician Unavailable CHAU SOLANO Attending Clinician Unavailable Chau Swanson Attending Clinician [facility] Main Attending Clinician Unavailable SILVIA CM Attending Clinician Unavailable [facility], [facility] Cardio Vascular Attending Clinician Unavailable Louie Ramon Attending Clinician Morris Bergman Attending Clinician ELENA ESPINO Admitting Clinician Unavailable Payers Payer Name Policy Type Policy Number Effective Date Expiration Date S musa MEDICARE PART A [id number] 2010 \\T\\ B 00:00:00 [id number] 2020 00:00:00 C1 [id number] [facility] MEDICARE MB [id number] [facility] [place] - [facility] [place] [id number] [facility] MEDICARE MB [id number] [facility] NOVITAS [facility] [place] [address] [id number] [facility] MEDICARE MB [id number] Common [place] [id number] [facility] MEDICARE MB [id number] Common [facility] Problems Condition Condition Condition Status Onset Resolution Last Treating Co mments Source Name Details Category Date Date Treatment Clinician Date Left hand Left hand Disease Active Uni vers pain pain 08-08 ity of 00:00: [place] [id number] Medical Branch Osteoporos Osteoporos Problem C jessica is is [facility] Asthma Asthma Problem Common [facility] Vitamin D Vitamin D Problem Com mon deficiency deficiency Sp miky [facility] Allergic Allergic Problem Commo n rhinitis rhinitis [facility] COPD - COPD Problem Common Chronic (chronic Spirit obstructiv obstructiv - [facility] e e pulmonary pulmonary Dickinson s disease disease) [facility] [place] Goiter Goiter Problem Common [facility] [id number] Primary Problem Common insomnia [facility] Irritable Irritable Problem Com mon bowel bowel [facility] Gastroesop Reflux Problem Commo n hageal Spirit reflux - [facility] disease [facility] Kidney Kidney Problem Common stone stone [facility] Sinus Sinus Problem Common problem problem [facility] Hyperlipid Hyperlipem Problem C jessica aemia ia [facility] High High Problem Common cholestero cholestero Sp miky l l [facility] Hypertensi HTN Problem Commo n on (hypertens Spirit ion) [facility] [id number] Primary Problem Commo n osteoarthr Spirit itis of - CHI right [facility] [id number] Other Problem Common osteoarthr Spirit itis - CHI involving [facility] [id number] Cigarette Problem Comm on nicotine [facility] dependence - [facility] without [facility] [id number] Anxiety Problem Commo n with Spirit depression - [facility] Adrenal Adrenal Problem Common nodule nodule [facility] [id number] Iron Problem Common deficiency Spirit anemia, - CHI unspecifie St d iron [facility] deficiency Medica l anemia Center type [id number] PUD Problem Common (peptic Spirit ulcer - CHI disease) [facility] [id number] Trochanter Problem Comm on ic Spirit bursitis - CHI of right hip [facility] [id number] [place] [id number] right hip Spirit joint - CHI [facility] Constipati Constipati Problem C ommon on on Spirit - CHI [facility] [id number] Smoking Problem Common greater Spirit than 40 - CHI pack years [facility] [id number] Asymptomat Problem Co mmon ic Spirit bilateral - CHI carotid [facility] [id number] Thyroid Problem Commo n nodule [facility] [id number] Atheroscle Problem C ommon [id number] rosis of Spirit both CHI carotid [facility] Cancer Cancer Problem Common [facility] Diverticul Diverticul Problem C ommon itis itis [facility] [id number] Lumbar Problem Common pain [facility] [id number] Lower Problem Common urinary [facility] tract - CHI symptoms St (LUTS) [facility] Morbid Morbid Problem Active 2017-03-15 Richy gris obesity obesity 04:23:59 l (disorder) (disorder) He rmann Active Problem 03/15/2017 [facility] Diverticul Problem Active 2017-03-15 M emoria ar disease Diverticul 04:23:59 l (disorder) ar disease He rmann (disorder) Active Problem 03/15/2017 [facility] Allergies, Adverse Reactions, Alerts Allergy Allergy Status Severity Reaction(s) Onset Inactive Treating Comm ents Source Name Type Date Date Clinician LATEX DRUG Active Swelling Univers INGREDI 09-27 ity of 00:00: [place] [facility] Latex Drug Active Swelling Univers Allergy 09-27 ity of 00:00: [place] [facility] MEPERIDI DRUG Active Anaphylaxis 2019-03 Uni vers NE INGREDI 04-02 ity of 00:00: [place] [facility] PENICILL Drug Active Diarrhea 2019-03 Univer s INS Class -24 ity of 00:00: [place] [facility] Meperidi Drug Active Anaphylaxis 2019-03 Uni vers ne Allergy 1-24 ity of 00:00: [place] 00 [facility] Penicill Drug Active Diarrhea 2019- Univer s ins Allergy 24 ity of 00:00: [place] 00 [facility] Branch Sulfa Propensi Active Diarrhea 2018-0 Univer s (Sulfona ty to 9-12 ity of mide adverse 00:00: [place] Antibiot reaction 00 Medica l ics) s Branch SULFA Drug Active Diarrhea 2019-0 Univers (SULFONA Class 9-12 ity of MIDE 00:00: [place] ANTIBIOT 00 Medical ICS) Branch TIZANIDI DRUG Active Anaphylaxis 2018-0 Uni vers NE HCL INGREDI 9 ity of 00:00: [place] 00 Medical Branch Sulfa Propensi Active Diarrhea 2019-0 Univer s (Sulfona ty to 912 ity of mide adverse 00:00: [place] Antibiot reaction 00 Medica l ics) s Branch Tizanidi Propensi Active Anaphylaxis 2019-0 U nivers ne Hcl ty to 11-19 ity of adverse 00:00: [place] reaction 00 Medical s Branch Codeine Propensi Active Palpitations 2016-0 U nivers ty to 6 ity of adverse 00:00: [place] reaction 00 Medical s Branch Meperidi Propensi Active Anaphylaxis 2016-0 U nivers ne Hcl ty to 6- ity of adverse 00:00: [place] reaction 00 Medical s Branch CODEINE DRUG Active Palpitations 2016- Uni vers INGREDI 08-08 ity of 00:00: [place] 00 Medical Branch MEPERIDI DRUG Active Anaphylaxis 2016- Uni vers NE HCL INGREDI 08-08 ity of 00:00: [place] 00 Medical Branch tizanidi tizanidi Active anaphylaxis C ommon ne ne [facility] tioconaz tioconaz Active swelling of C ommon ole ole labia [facility] 0 Drug Active chronic Common allergy diahrrea [facility] codeine codeine Active rapid heart Com mon rate [facility] codeine codeine Active Memoria l Renny Zanaflex Zanaflex Active Memori a l Renny Demerol Demerol Active Memoria HCl HCl l [facility] Latex Latex Active Memoria l [facility] Social History Social Habit Start Date Stop Date Quantity Comments Source Sex Assigned At Common Sp miky - [facility] History of Cigarette Smoker Universi ty of tobacco use [facility] Tobacco use and 2022-08-18 2022-08-18 Smokeless tobacco Un iversity of exposure 00:00:00 00:00:00 non-user [facility] Alcohol intake 2022-08-18 2022-08-18 0 /d University of 00:00:00 00:00:00 [facility] Smoking Status Start Date Stop Date Source Former Smoker 2021-12-21 00:00:00 2021-12-21 00:00:00 Common S pirit [facility] Never Smoker [facility] Spirit [facility] Social History 2017-03-12 22:12:03 [facility] Medications Ordered Filled Start Stop Current Ordering Indication Dosage Frequency Signature Comments Components Source Medication Medication Date Date Medication? Clinician (SIG) Name Name cephALEXin 2022- Yes [id number] 500mg Take 1 Univers (KEFLEX) 08-18 [id number] capsule by it y of 500 mg 00:00: 04:59 mouth 4 [place] capsule 00 :00 (four) [facility] daily for 10 days. Ambien 10 Ambien 10 No Ambien 10 MG MG 7-22 MG 00:00: 00 Ambien 10 Ambien 10 No Ambien 10 MG MG 7-22 MG 00:00: 00 Ambien 10 Ambien 10 No Ambien 10 MG MG 7-22 MG 00:00: 00 Ambien 10 Ambien 10 0 No Ambien 10 MG MG 7-22 MG 00:00: 00 Ambien 10 Ambien 10 0 No Ambien 10 MG MG 7-22 MG 00:00: 00 Ambien 10 Ambien 10 0 No Ambien 10 MG MG 7-22 MG 00:00: 00 Fluconazole Fluconazole 2021- No 1{table Fluconazol 150 MG 150 MG -20 07-21 t} e 150 MG 00:00: 00:00 00 :00 Atorvastati Atorvastati 0 No 1{table QD Atorvastat n Calcium n Calcium 6-30 t} in Calcium 40 MG 40 MG 00:00: 40 MG 00 Atorvastati Atorvastati 2022-0 No 1{table QD Atorvastat n Calcium n Calcium 6-30 t} in Calcium 40 MG 40 MG 00:00: 40 MG 00 Atorvastati Atorvastati 2021-0 No 1{table QD Atorvastat n Calcium n Calcium 6-30 t} in Calcium 40 MG 40 MG 00:00: 40 MG 00 Atorvastati Atorvastati 2021-0 No 1{table QD Atorvastat n Calcium n Calcium 6-30 t} in Calcium 40 MG 40 MG 00:00: 40 MG 00 Atorvastati Atorvastati No 1{table QD Atorvastat n Calcium n Calcium 6-30 t} in Calcium 40 MG 40 MG 00:00: 40 MG Atorvastati Atorvastati No 1{table QD Atorvastat n Calcium n Calcium 6-30 t} in Calcium 40 MG 40 MG 00:00: 40 MG 00 Atorvastati Atorvastati No 1{table QD Atorvastat n Calcium n Calcium 6-30 t} in Calcium 40 MG 40 MG 00:00: 40 MG 00 Atorvastati Atorvastati No 1{table QD Atorvastat n Calcium n Calcium 6-30 t} in Calcium 40 MG 40 MG 00:00: 40 MG Atorvastati Atorvastati No 1{table QD Atorvastat n Calcium n Calcium 6-30 t} in Calcium 40 MG 40 MG 00:00: 40 MG Atorvastati Atorvastati No 1{table QD Atorvastat n Calcium n Calcium 6-30 t} in Calcium 40 MG 40 MG 00:00: 40 MG 00 Atorvastati Atorvastati No 1{table QD Atorvastat n Calcium n Calcium 6-30 t} in Calcium 40 MG 40 MG 00:00: 40 MG 00 Atorvastati Atorvastati 2021- No 1{table QD Atorvastat n Calcium n Calcium 6-30 t} in Calcium 40 MG 40 MG 00:00: 40 MG 00 Atorvastati Atorvastati 2021-0 No 1{table QD Atorvastat n Calcium n Calcium 6-30 t} in Calcium 40 MG 40 MG 00:00: 40 MG 00 Atorvastati Atorvastati 2021-0 No 1{table QD Atorvastat n Calcium n Calcium 6-30 t} in Calcium 40 MG 40 MG 00:00: 40 MG 00 Atorvastati Atorvastati 2021-0 No 1{table QD Atorvastat n Calcium n Calcium 6-30 t} in Calcium 40 MG 40 MG 00:00: 40 MG 00 Atorvastati Atorvastati 2021-0 No 1{table QD Atorvastat n Calcium n Calcium 6-30 t} in Calcium 40 MG 40 MG 00:00: 40 MG 00 Ambien 10 Ambien 10 2021-0 No Ambien 10 MG MG 6-26 MG 00:00: 00 Ambien 10 Ambien 10 2021-0 No Ambien 10 MG MG 6-26 MG 00:00: 00 Ambien 10 Ambien 10 2021-0 No Ambien 10 MG MG 6-26 MG 00:00: 00 Ambien 10 Ambien 10 2021-0 No Ambien 10 MG MG 6-26 MG 00:00: 00 Ambien 10 Ambien 10 2021-0 No Ambien 10 MG MG 6-26 MG 00:00: 00 Ambien 10 Ambien 10 2-0 No Ambien 10 MG MG 5-23 MG 00:00: 00 Ambien 10 Ambien 10 2-0 No Ambien 10 MG MG 5-23 MG 00:00: 00 Ambien 10 Ambien 10 2-0 No Ambien 10 MG MG 5-23 MG 00:00: 00 Ambien 10 Ambien 10 2021-0 No Ambien 10 MG MG 5-23 MG 00:00: 00 Ambien 10 Ambien 10 2-0 No Ambien 10 MG MG 5-23 MG 00:00: 00 Ambien 10 Ambien 10 2-0 No Ambien 10 MG MG 4-22 MG 00:00: 00 Ambien 10 Ambien 10 2-0 No Ambien 10 MG MG 4-22 MG 00:00: 00 Ambien 10 Ambien 10 2-0 No Ambien 10 MG MG 4-22 MG 00:00: 00 Ambien 10 Ambien 10 2-0 No Ambien 10 MG MG 4-22 MG 00:00: 00 Ambien 10 Ambien 10 2-0 No Ambien 10 MG MG 4-22 MG 00:00: 00 Lidocaine Lidocaine 2022-0 No 10mg Com 06-28 Spirit 00:00: - CHI 00 [facility] Kenalog Kenalog 2-0 No 40mg Common (Triamcinol (Triamcinol 4-21 S pirit one) one) 00:00: - CHI 00 [facility] Lidocaine Lidocaine 2-0 No 10mg Com 06-28 Spirit 00:00: - CHI 00 [facility] Kenalog Kenalog 2-0 No 40mg Common (Triamcinol (Triamcinol 4-21 S pirit one) one) 00:00: - CHI 00 [facility] Lidocaine Lidocaine 2-0 No 10mg Com 06-28 Spirit 00:00: - CHI 00 [facility] Kenalog Kenalog 2-0 No 40mg Common (Triamcinol (Triamcinol 4-21 S pirit one) one) 00:00: - CHI 00 [facility] Lidocaine Lidocaine 2-0 No 10mg Com 06-28 Spirit 00:00: - CHI 00 [facility] Kenalog Kenalog 2-0 No 40mg Common (Triamcinol (Triamcinol 4-21 S pirit one) one) 00:00: - CHI 00 [facility] Lidocaine Lidocaine 2-0 No 10mg Com 06-28 Spirit 00:00: - CHI 00 [facility] Kenalog Kenalog 2-0 No 40mg Common (Triamcinol (Triamcinol 4-21 S pirit one) one) 00:00: - CHI 00 [facility] Lidocaine Lidocaine 2022-0 No 10mg Com 06-28 Spirit 00:00: - CHI 00 [facility] Kenalog Kenalog 2-0 No 40mg Common (Triamcinol (Triamcinol 4-21 S pirit one) one) 00:00: - CHI 00 [facility] Lidocaine Lidocaine 2022-0 No 10mg Com 06-28 Spirit 00:00: - CHI 00 [facility] Kenalog Kenalog 2022-0 No 40mg Common (Triamcinol (Triamcinol 4-21 S pirit one) one) 00:00: - CHI 00 [facility] Lidocaine Lidocaine 2-0 No 10mg Com 06-28 Spirit 00:00: - CHI 00 [facility] Kenalog Kenalog 2-0 No 40mg Common (Triamcinol (Triamcinol 4-21 S pirit one) one) 00:00: - CHI 00 [facility] Lidocaine Lidocaine 2-0 No 10mg Com 06-28 Spirit 00:00: - CHI 00 [facility] Kenalog Kenalog 2-0 No 40mg Common (Triamcinol (Triamcinol 4-21 S pirit one) one) 00:00: - CHI 00 [facility] Lidocaine Lidocaine 2-0 No 10mg Com 06-28 Spirit 00:00: - CHI 00 [facility] Kenalog Kenalog 2-0 No 40mg Common (Triamcinol (Triamcinol 4-21 S pirit one) one) 00:00: - CHI 00 [facility] Lidocaine Lidocaine 2-0 No 10mg Com 06-28 Spirit 00:00: - CHI 00 [facility] Kenalog Kenalog 2-0 No 40mg Common (Triamcinol (Triamcinol 4-21 S pirit one) one) 00:00: - CHI 00 [facility] Lidocaine Lidocaine 2-0 No 10mg Com 06-28 Spirit 00:00: - CHI 00 [facility] Kenalog Kenalog 2-0 No 40mg Common (Triamcinol (Triamcinol 4-21 S pirit one) one) 00:00: - CHI 00 [facility] Lidocaine Lidocaine 2-0 No 10mg Com 06-28 Spirit 00:00: - CHI 00 [facility] Kenalog Kenalog 2-0 No 40mg Common (Triamcinol (Triamcinol 4-21 S pirit one) one) 00:00: - CHI 00 [facility] Lidocaine Lidocaine 2-0 No 10mg Com 06-28 Spirit 00:00: - CHI 00 [facility] Kenalog Kenalog 2-0 No 40mg Common (Triamcinol (Triamcinol 4-21 S pirit one) one) 00:00: - CHI 00 [facility] Lidocaine Lidocaine 2022-0 No 10mg Com 06-28 Spirit 00:00: - CHI 00 [facility] Kenalog Kenalog 2-0 No 40mg Common (Triamcinol (Triamcinol 4-21 S pirit one) one) 00:00: - CHI 00 [facility] Lidocaine Lidocaine 2-0 No 10mg Com 06-28 Spirit 00:00: - CHI 00 [facility] Kenalog Kenalog 2-0 No 40mg Common (Triamcinol (Triamcinol 4-21 S pirit one) one) 00:00: - CHI 00 [facility] Lidocaine Lidocaine 2-0 No 10mg Com 06-28 Spirit 00:00: - CHI 00 [facility] Kenalog Kenalog 2-0 No 40mg Common (Triamcinol (Triamcinol 4-21 S pirit one) one) 00:00: - CHI 00 [facility] Lidocaine Lidocaine 2-0 No 10mg Com 06-28 Spirit 00:00: - CHI 00 [facility] Kenalog Kenalog 2-0 No 40mg Common (Triamcinol (Triamcinol 4-21 S pirit one) one) 00:00: - CHI 00 [facility] Lidocaine Lidocaine 2-0 No 10mg Com 06-28 Spirit 00:00: - CHI 00 [facility] Kenalog Kenalog 2-0 No 40mg Common (Triamcinol (Triamcinol 4-21 S pirit one) one) 00:00: - CHI 00 [facility] Lidocaine Lidocaine 2-0 No 10mg Com 06-28 Spirit 00:00: - CHI 00 [facility] Kenalog Kenalog 2-0 No 40mg Common (Triamcinol (Triamcinol 4-21 S pirit one) one) 00:00: - CHI 00 [facility] Lidocaine Lidocaine 2022-0 No 10mg Com 06-28 Spirit 00:00: - CHI 00 [facility] Kenalog Kenalog 2-0 No 40mg Common (Triamcinol (Triamcinol 4-21 S pirit one) one) 00:00: - CHI 00 [facility] Lidocaine Lidocaine 2022-0 No 10mg Com 06-28 Spirit 00:00: - CHI 00 [facility] Kenalog Kenalog 2-0 No 40mg Common (Triamcinol (Triamcinol 4-21 S pirit one) one) 00:00: - CHI 00 [facility] Lidocaine Lidocaine 2-0 No 10mg Com 06-28 Spirit 00:00: - CHI 00 [facility] Kenalog Kenalog 2-0 No 40mg Common (Triamcinol (Triamcinol 4-21 S pirit one) one) 00:00: - CHI 00 [facility] Lidocaine Lidocaine 2-0 No 10mg Com 06-28 Spirit 00:00: - CHI 00 [facility] Kenalog Kenalog 2-0 No 40mg Common (Triamcinol (Triamcinol 4-21 S pirit one) one) 00:00: - CHI 00 [facility] Lidocaine Lidocaine 2-0 No 10mg Com 06-28 Spirit 00:00: - CHI 00 [facility] Kenalog Kenalog 2-0 No 40mg Common (Triamcinol (Triamcinol 4-21 S pirit one) one) 00:00: - CHI 00 [facility] Lidocaine Lidocaine 2-0 No 10mg Com 06-28 Spirit 00:00: - CHI 00 [facility] Kenalog Kenalog 2-0 No 40mg Common (Triamcinol (Triamcinol 4-21 S pirit one) one) 00:00: - CHI 00 [facility] Lidocaine Lidocaine 2-0 No 10mg Com 06-28 Spirit 00:00: - CHI 00 [facility] Kenalog Kenalog 2-0 No 40mg Common (Triamcinol (Triamcinol 4-21 S pirit one) one) 00:00: - CHI 00 [facility] Lidocaine Lidocaine 2-0 No 10mg Com 06-28 Spirit 00:00: - CHI 00 [facility] Kenalog Kenalog 2-0 No 40mg Common (Triamcinol (Triamcinol 4-21 S pirit one) one) 00:00: - CHI 00 [facility] Zolpidem Zolpidem 2021-0 No Zolpidem Tartrate 10 Tartrate 10 3-28 Tartrate MG MG 00:00: 10 MG 00 Ambien 10 Ambien 10 2021- No 1{table QD Ambien 10 3-28 t_at_be 00:00: dtime_a 00 s_neede d} Ambien 10 Ambien 10 2021-0 No 1{table QD Ambien 10 3-28 t_at_be 00:00: dtime_a 00 s_neede d} Zolpidem Zolpidem 2021-0 No Zolpidem Tartrate 10 Tartrate 10 3-28 Tartrate MG MG 00:00: 10 MG 00 Ambien 10 Ambien 10 No 1{table QD Ambien 10 3-28 t_at_be 00:00: dtime_a 00 s_neede d} Zolpidem Zolpidem 2021-0 No Zolpidem Tartrate 10 Tartrate 10 3-28 Tartrate MG MG 00:00: 10 MG 00 Ambien 10 Ambien No 1{table QD Ambien 10 3-28 t_at_be 00:00: dtime_a 00 s_neede d} Zolpidem Zolpidem 2021-0 No Zolpidem Tartrate 10 Tartrate 10 3-28 Tartrate MG MG 00:00: 10 MG 00 Ambien 10 Ambien 10 No 1{table QD Ambien 10 3-28 t_at_be 00:00: dtime_a 00 s_neede d} Zolpidem Zolpidem 2021-0 No Zolpidem Tartrate 10 Tartrate 10 3-28 Tartrate MG MG 00:00: 10 MG 00 Ambien 10 Ambien 10 0 No 1{table QD Ambien 10 3-28 t_at_be 00:00: dtime_a 00 s_neede d} Zolpidem Zolpidem 2-0 No Zolpidem Tartrate 10 Tartrate 10 3-28 Tartrate MG MG 00:00: 10 MG 00 Zolpidem Zolpidem 2021-0 No Zolpidem Tartrate 10 Tartrate 10 3-28 Tartrate MG MG 00:00: 10 MG 00 Ambien 10 Ambien 10 2021-0 No 1{table QD Ambien 10 - t_at_be 00:00: dtime_a 00 s_neede d} Zolpidem Zolpidem 2021-0 No Zolpidem Tartrate 10 Tartrate 10 3-28 Tartrate MG MG 00:00: 10 MG 00 Ambien 10 Ambien 10 2021-0 No 1{table QD Ambien 10 - t_at_be 00:00: dtime_a 00 s_neede d} Zolpidem Zolpidem 2021-0 No Zolpidem Tartrate 10 Tartrate 10 3-28 Tartrate MG MG 00:00: 10 MG 00 Ambien 10 Ambien 10 2021-0 No 1{table QD Ambien 10 - t_at_be 00:00: dtime_a 00 s_neede d} Zolpidem Zolpidem 2021-0 No Zolpidem Tartrate 10 Tartrate 10 3-28 Tartrate MG MG 00:00: 10 MG 00 Ambien 10 Ambien 2021-0 No 1{table QD Ambien 10 06-04 t_at_be 00:00: dtime_a 00 s_neede d} Nystatin Nystatin 2021-0 2021- No QID Nystatin [id number] 2-22 03-04 [id number] UNIT/ML UNIT/ML 00:00: 00:00 UNIT/ML 00 :00 Zolpidem Zolpidem 2-0 No Zolpidem Tartrate 10 Tartrate 10 2-21 Tartrate MG MG 00:00: 10 MG 00 Ambien 10 Ambien 2020-03 No Ambien 10 MG MG 1-24 MG 00:00: 00 Ambien 10 Ambien 2020- No Ambien 10 MG MG 1-24 MG 00:00: 00 Ambien 10 Ambien 2020-03 No Ambien 10 MG MG 1-24 MG 00:00: 00 Ambien 10 Ambien 2020-03 No Ambien 10 MG MG 1-24 MG 00:00: 00 Ambien 10 Ambien 2020-03 No Ambien 10 MG MG 1-24 MG 00:00: 00 Ambien 10 Ambien 2020-03 No MG MG 1-24 00:00: 00 Zolpidem Zolpidem 2020-1 No Zolpidem Tartrate 10 Tartrate 10 0-20 Tartrate MG MG 00:00: 10 MG 00 Zolpidem Zolpidem 2020-1 No Zolpidem Tartrate 10 Tartrate 10 0-20 Tartrate MG MG 00:00: 10 MG 00 Zolpidem Zolpidem 2020-1 No Zolpidem Tartrate 10 Tartrate 10 0-20 Tartrate MG MG 00:00: 10 MG 00 Zolpidem Zolpidem 2020-1 No Zolpidem Tartrate 10 Tartrate 10 0-20 Tartrate MG MG 00:00: 10 MG 00 Zolpidem Zolpidem 2020-1 No Zolpidem Tartrate 10 Tartrate 10 0-20 Tartrate MG MG 00:00: 10 MG 00 Zolpidem Zolpidem 2020-1 No Tartrate 10 Tartrate 10 0-20 MG MG 00:00: 00 Procto-Med Procto-Med 2020-0 2020- No 1{appli Procto-Med HC 2.5 % HC 2.5 % 9-17 10-17 cation} HC 2.5 % 00:00: 00:00 00 :00 Omeprazole Omeprazole 2020-0 No 1{capsu QD Omeprazole 20 MG 20 MG 03-15 le} 20 MG 00:00: 00 Omeprazole Omeprazole 2020-0 No 1{capsu QD Omeprazole 20 MG 20 MG 03-15 le} 20 MG 00:00: 00 Omeprazole Omeprazole 2020-0 No 1{capsu QD Omeprazole 20 MG 20 MG 03-15 le} 20 MG 00:00: 00 Omeprazole Omeprazole 2020-0 No 1{capsu QD Omeprazole 20 MG 20 MG 03-15 le} 20 MG 00:00: 00 Omeprazole Omeprazole 2020-0 No 1{capsu QD Omeprazole 20 MG 20 MG 03-15 le} 20 MG 00:00: 00 Omeprazole Omeprazole 2020-0 No 1{capsu QD Omeprazole 20 MG 20 MG 03-15 le} 20 MG 00:00: 00 Omeprazole Omeprazole 2020-0 No 1{capsu QD Omeprazole 20 MG 20 MG 03-15 le} 20 MG 00:00: 00 Omeprazole Omeprazole 2020-0 No 1{capsu QD 20 MG 20 MG 03-15 le} 00:00: 00 Omeprazole Omeprazole 2020-0 No 1{capsu QD Omeprazole 20 MG 20 MG 03-15 le} 20 MG 00:00: 00 Omeprazole Omeprazole 2020-0 No 1{capsu QD Omeprazole 20 MG 20 MG 03-15 le} 20 MG 00:00: 00 Omeprazole Omeprazole 2020-0 No 1{capsu QD Omeprazole 20 MG 20 MG 03-15 le} 20 MG 00:00: 00 Omeprazole Omeprazole 2020-0 No 1{capsu QD Omeprazole 20 MG 20 MG 03-15 le} 20 MG 00:00: 00 Omeprazole Omeprazole 2020-0 No 1{capsu QD Omeprazole 20 MG 20 MG 03-15 le} 20 MG 00:00: 00 Omeprazole Omeprazole 2020-0 No 1{capsu QD Omeprazole 20 MG 20 MG 03-15 le} 20 MG 00:00: 00 Omeprazole Omeprazole 2020-0 No 1{capsu QD Omeprazole 20 MG 20 MG 03-15 le} 20 MG 00:00: 00 Omeprazole Omeprazole 2020-0 No 1{capsu QD Omeprazole 20 MG 20 MG 03-15 le} 20 MG 00:00: 00 Omeprazole Omeprazole 2020-0 No 1{capsu QD Omeprazole 20 MG 20 MG 03-15 le} 20 MG 00:00: 00 Omeprazole Omeprazole 2020-0 No 1{capsu QD Omeprazole 20 MG 20 MG 03-15 le} 20 MG 00:00: 00 Omeprazole Omeprazole 2020-0 No 1{capsu QD Omeprazole 20 MG 20 MG 03-15 le} 20 MG 00:00: 00 Omeprazole Omeprazole 2020-0 No 1{capsu QD Omeprazole 20 MG 20 MG 03-15 le} 20 MG 00:00: 00 Omeprazole Omeprazole 2020-0 No 1{capsu QD Omeprazole 20 MG 20 MG 03-15 le} 20 MG 00:00: 00 Omeprazole Omeprazole 2020-0 No 1{capsu QD Omeprazole 20 MG 20 MG 03-15 le} 20 MG 00:00: 00 Omeprazole Omeprazole 2020-0 No 1{capsu QD Omeprazole 20 MG 20 MG 03-15 le} 20 MG 00:00: 00 Omeprazole Omeprazole 2020-0 No 1{capsu QD Omeprazole 20 MG 20 MG 03-15 le} 20 MG 00:00: 00 Omeprazole Omeprazole 2020-0 No 1{capsu QD Omeprazole 20 MG 20 MG 03-15 le} 20 MG 00:00: 00 Omeprazole Omeprazole 2020-0 No 1{capsu QD Omeprazole 20 MG 20 MG 03-15 le} 20 MG 00:00: 00 Omeprazole Omeprazole 2020-0 No 1{capsu QD Omeprazole 20 MG 20 MG 03-15 le} 20 MG 00:00: 00 Omeprazole Omeprazole 2020-0 No 1{capsu QD Omeprazole 20 MG 20 MG 03-15 le} 20 MG 00:00: 00 Omeprazole Omeprazole 2020-0 No 1{capsu QD Omeprazole 20 MG 20 MG 03-15 le} 20 MG 00:00: 00 Omeprazole Omeprazole 2020-0 No 1{capsu QD Omeprazole 20 MG 20 MG 03-15 le} 20 MG 00:00: 00 PredniSONE PredniSONE 2019-0 2020- No Na Perez 2 tablet Common 11-15 daily x 5 [facility] 00:[facility]: 00:00 days then - [facility] 00 :[address] daily x 5 [facility] Ipratropium Ipratropium 2019-0 2020- No Na Perez 2 sprays Common Lutz Lutz 10-28 in each Spiri t 00:00: 00:00 nostril - [facility] 00 :00 [facility] Baclofen Baclofen 2019-0 2020- No Na Perez 1/2 tablet Common 10-10 with food [facility] 00:00: 00:00 or milk - [facility] 00 :00 [facility] Atorvastati Atorvastati 2019-0 Yes Na Perez 1 tablet Common n Calcium n Calcium 08-16 Spiri t 00:00: - [facility] 00 [facility] Atorvastati Atorvastati 2019-0 No 1{table QD Atorvastat n Calcium n Calcium 08-16 t} in Calcium 20 MG 20 MG 00:00: 20 MG 00 Atorvastati Atorvastati 2020-0 No 1{table QD Atorvastat n Calcium n Calcium 08-16 t} in Calcium 20 MG 20 MG 00:00: 20 MG 00 zolpidem 10 2020-0 Yes TK 1 T PO U nivers mg tablet 2-10 QHS PRN ity of 00:00: [place] [facility] zolpidem 10 2019-0 Yes TK 1 T PO U nivers mg tablet 2-10 QHS PRN ity of 00:00: [place] [facility] zolpidem 10 2020-0 Yes TK 1 T PO U nivers mg tablet 2-10 QHS PRN ity of 00:00: [place] [facility] zolpidem 10 2019-0 Yes TK 1 T PO U nivers mg tablet 2-10 QHS PRN ity of 00:00: [place] [facility] zolpidem 10 2019-0 Yes TK 1 T PO U nivers mg tablet 2-10 QHS PRN ity of 00:00: [place] [facility] zolpidem 10 2019-0 Yes TK 1 T PO U nivers mg tablet 2-10 QHS PRN ity of 00:00: [place] [facility] zolpidem 10 2019-0 Yes TK 1 T PO U nivers mg tablet 2-10 QHS PRN ity of 00:00: [place] [facility] zolpidem 10 2019-0 Yes TK 1 T PO U nivers mg tablet 2-10 QHS PRN ity of 00:00: [place] [facility] zolpidem 10 2019-0 Yes TK 1 T PO U nivers mg tablet 2-10 QHS PRN ity of 00:00: [place] [facility] zolpidem 10 2020-0 Yes TK 1 T PO U nivers mg tablet 2-10 QHS PRN ity of 00:00: [place] [facility] zolpidem 10 2020-0 Yes TK 1 T PO U nivers mg tablet 2-10 QHS PRN ity of 00:00: [place] [facility] zolpidem 10 2020-0 Yes TK 1 T PO U nivers mg tablet 2-10 QHS PRN ity of 00:00: [place] 00 Medical Branch zolpidem 10 2020-0 Yes TK 1 T PO U nivers mg tablet 2-10 QHS PRN ity of 00:00: [place] [facility] zolpidem 10 2020-0 Yes TK 1 T PO U nivers mg tablet 2-10 QHS PRN ity of 00:00: Medical Branch zolpidem 10 2020-0 Yes TK 1 T PO U nivers mg tablet 2-10 QHS PRN ity of 00:00: Medical Branch methylPREDN 2020-0 Yes [id number] 84mg Take 21 [facility] ISolone 1-21 9102 tablets by ity of (MEDROL, 00:00: mouth [place] FADI,) 4 mg 00 SEE-INSTRU Med ical tablets CTIONS. Branch follow package directions methylPREDN 2020-0 Yes [id number] 84mg Take 21 [facility] ISolone 1-21 9102 tablets by ity of (MEDROL, 00:00: mouth [place] FADI,) 4 mg 00 SEE-INSTRU Med ical tablets CTIONS. Branch follow package directions methylPREDN 2020-0 Yes [id number] 84mg Take 21 [facility] ISolone 1-21 9102 tablets by ity of (MEDROL, 00:00: mouth [place] FADI,) 4 mg 00 SEE-INSTRU Med ical tablets CTIONS. Branch follow package directions methylPREDN 2020-0 Yes [id number] 84mg Take 21 [facility] ISolone 1-21 9102 tablets by ity of (MEDROL, 00:00: mouth [place] FADI,) 4 mg 00 SEE-INSTRU Med ical tablets CTIONS. Branch follow package directions methylPREDN 2020-0 Yes [id number] 84mg Take 21 [facility] ISolone 1-21 9102 tablets by ity of (MEDROL, 00:00: mouth [place] FADI,) 4 mg 00 SEE-INSTRU Med ical tablets CTIONS. Branch follow package directions methylPREDN 2020-0 Yes [id number] 84mg Take 21 [facility] ISolone 1-21 9102 tablets by ity of (MEDROL, 00:00: mouth [place] FADI,) 4 mg 00 SEE-INSTRU Med ical tablets CTIONS. Branch follow package directions methylPREDN 2020-0 Yes [id number] 84mg Take 21 [facility] ISolone 1-21 9102 tablets by ity of (MEDROL, 00:00: mouth [place] FADI,) 4 mg 00 SEE-INSTRU Med ical tablets CTIONS. Branch follow package directions methylPREDN 2020-0 Yes [id number] 84mg Take 21 [facility] ISolone 1-21 9102 tablets by ity of (MEDROL, 00:00: mouth [place] FADI,) 4 mg 00 SEE-INSTRU Med ical tablets CTIONS. Branch follow package directions methylPREDN 2020-0 Yes [id number] 84mg Take 21 [facility] ISolone 1-21 9102 tablets by ity of (MEDROL, 00:00: mouth [place] FADI,) 4 mg 00 SEE-INSTRU Med ical tablets CTIONS. Branch follow package directions methylPREDN 2020-0 Yes [id number] 84mg Take 21 [facility] ISolone 1-21 9102 tablets by ity of (MEDROL, 00:00: mouth [place] FADI,) 4 mg 00 SEE-INSTRU Med ical tablets CTIONS. Branch follow package directions methylPREDN 2020-0 Yes [id number] 84mg Take 21 [facility] ISolone 1-21 9102 tablets by ity of (MEDROL, 00:00: mouth [place] FADI,) 4 mg 00 SEE-INSTRU Med ical tablets CTIONS. Branch follow package directions methylPREDN 2020-0 Yes [id number] 84mg Take 21 [facility] ISolone 1-21 9102 tablets by ity of (MEDROL, 00:00: mouth [place] FADI,) 4 mg 00 SEE-INSTRU Med ical tablets CTIONS. Branch follow package directions methylPREDN 2020-0 Yes [id number] 84mg Take 21 [facility] ISolone 1-21 9102 tablets by ity of (MEDROL, 00:00: mouth [place] FADI,) 4 mg 00 SEE-INSTRU Med ical tablets CTIONS. Branch follow package directions methylPREDN 2020-0 Yes [id number] 84mg Take 21 [facility] ISolone 1-21 9102 tablets by ity of (MEDROL, 00:00: mouth [place] FADI,) 4 mg 00 SEE-INSTRU Med ical tablets CTIONS. Branch follow package directions methylPREDN 2020-0 Yes [id number] 84mg Take 21 [facility] ISolone 1-21 9102 tablets by ity of (MEDROL, 00:00: mouth [place] FADI,) 4 mg 00 SEE-INSTRU Med ical tablets CTIONS. Branch follow package directions methylPREDN 2020-0 Yes [id number] 84mg Take 21 [facility] ISolone 1-21 9102 tablets by ity of (MEDROL, 00:00: mouth [place] FADI,) 4 mg 00 SEE-INSTRU Med ical tablets CTIONS. Branch follow package directions methylPREDN 2020-0 Yes [id number] 84mg Take 21 [facility] ISolone 1-21 9102 tablets by ity of (MEDROL, 00:00: mouth [place] FADI,) 4 mg 00 SEE-INSTRU Med ical tablets CTIONS. Branch follow package directions methylPREDN 2020-0 Yes [id number] 84mg Take 21 [facility] ISolone 1-21 4109 tablets by ity of (MEDROL, 00:00: mouth [place] FADI,) 4 mg 00 SEE-INSTRU Med ical tablets CTIONS. Branch follow package directions methylPREDN 2020-0 Yes [id number] 84mg Take 21 [facility] ISolone 1-21 4109 tablets by ity of (MEDROL, 00:00: mouth [place] FADI,) 4 mg 00 SEE-INSTRU Med ical tablets CTIONS. Branch follow package directions triamcinolo 2020-0 2020- No 40mg Unive rs ne 03-23 ity of acetonide 20:30: 19:30 [place] (KENALOG) 00 :00 Medical injection Branch 40 mg triamcinolo 2020-0 2020- No 40mg 40 mg, Uni vers ne 03-23 Intra-malissa ity of acetonide 20:30: 19:30 [place], [place] (KENALOG) 00 :00 ONCE, 1 Medical injection dose, Tue Branc h 40 mg 03/23/19 at 1430, Routine triamcinolo 2020-0 2020- No 40mg Unive rs ne 03-23 ity of acetonide 20:30: 19:30 [place] (KENALOG) 00 :00 Medical injection Branch 40 mg triamcinolo 2020-0 2020- No 40mg 40 mg, Uni vers ne 03-23 Intra-malissa ity of acetonide 20:30: 19:30 [place], [place] (KENALOG) 00 :00 ONCE, 1 Medical injection dose, Tue Branc h 40 mg 03/23/19 at 1430, Routine Amlodipine- 2018-03 Yes TK 1 T PO U nivers Olmesartan 2-24 D ity of 10-20 mg 00:00: [place] Tab 00 Medical Branch Amlodipine- 2018-03 Yes TK 1 T PO U nivers Olmesartan 2-24 D ity of 10-20 mg 00:00: [place] Tab 00 Medical Branch Amlodipine- 2018-03 Yes TK 1 T PO U nivers Olmesartan 2-24 D ity of 10-20 mg 00:00: [place] Tab Medical Branch Amlodipine- 2019- Yes TK 1 T PO U nivers Olmesartan 2-24 D ity of 10-20 mg 00:00: [place] Tab Medical Branch Amlodipine- 2018- Yes TK 1 T PO U nivers Olmesartan 2-24 D ity of 10-20 mg 00:00: [place] Tab Medical Branch Amlodipine- 2018- Yes TK 1 T PO U nivers Olmesartan 2-24 D ity of 10-20 mg 00:00: [place] Tab Medical Branch Amlodipine- 2018-03 Yes TK 1 T PO U nivers Olmesartan 2-24 D ity of 10-20 mg 00:00: [place] [address] Medical Branch Amlodipine- 2018-03 Yes TK 1 T PO U nivers Olmesartan 2-24 D ity of 10-20 mg 00:00: [place] [address] Medical Branch Amlodipine- 2018-03 Yes TK 1 T PO U nivers Olmesartan 2-24 D ity of 10-20 mg 00:00: [place] Tab Medical Branch Amlodipine- 2018-03 Yes TK 1 T PO U nivers Olmesartan 2-24 D ity of 10-20 mg 00:00: [place] [address] Medical Branch Amlodipine- 2018-03 Yes TK 1 T PO U nivers Olmesartan 2-24 D ity of 10-20 mg 00:00: [place] [address] Medical Branch Amlodipine- 2018-03 Yes TK 1 T PO U nivers Olmesartan 2-24 D ity of 10-20 mg 00:00: [place] Tab Medical Branch Amlodipine- 2018- Yes TK 1 T PO U nivers Olmesartan 2-24 D ity of 10-20 mg 00:00: [place] Tab Medical Branch Amlodipine- 2018- Yes TK 1 T PO U nivers Olmesartan 2-24 D ity of 10-20 mg 00:00: [place] Tab Medical Branch Amlodipine- 2018- Yes TK 1 T PO U nivers Olmesartan 2-24 D ity of 10-20 mg 00:00: [place] [address] Medical Branch omeprazole 2019- Yes Univers 40 mg 2-23 ity of capsule 00:00: [place] [address] Medical Branch omeprazole 2019- Yes Univers 40 mg 2-23 ity of capsule 00:00: [address] omeprazole 2019- Yes Univers 40 mg 2-23 ity of capsule 00:00: [address] omeprazole 2019- Yes Univers 40 mg 2-23 ity of capsule 00:00: [address] omeprazole 2018- Yes Univers 40 mg 2-23 ity of capsule 00:00: [address] omeprazole 2019- Yes Univers 40 mg 2-23 ity of capsule 00:00: [address] omeprazole 2019- Yes Univers 40 mg 2-23 ity of capsule 00:00: [address] omeprazole 2018- Yes Univers 40 mg 2-23 ity of capsule 00:00: [address] omeprazole 2019- Yes Univers 40 mg 2-23 ity of capsule 00:00: [address] omeprazole 2018- Yes Univers 40 mg 2-23 ity of capsule 00:00: [address] omeprazole 2018- Yes Univers 40 mg 2-23 ity of capsule 00:00: [address] omeprazole 2018- Yes Univers 40 mg 2-23 ity of capsule 00:00: [address] omeprazole 2018- Yes Univers 40 mg 2-23 ity of capsule 00:00: [address] omeprazole 2019- Yes Univers 40 mg 2-23 ity of capsule 00:00: [address] omeprazole 2019- Yes Univers 40 mg 2-23 ity of capsule 00:00: [address] dexamethaso 2019-0 2019- No 10mg 10 mg, Uni vers ne 11-20 Oral, ity of (DECADRON) 03:15: 02:16 ONCE, 1 [facility] injection 00 :00 dose, [facility] 10 mg 11/19/18 at Branch 2215, Routine HYDROcodone 2019- 2019- No 1{tbl} 1 tablet, Univers -acetaminop 11-20 Oral, ONCE i ty of hen (NORCO) 03:15: 02:04 NOW, 1 [facility] 10-325 mg 00 :00 dose, [facility] tablet 1 11/19/18 at [facility] tablet 2215, Routine naproxen 2019-0 Yes [id number] 250mg Take 1 [facility] 250 mg 11-19 [id number] tablet by ity of tablet 00:00: mouth 2 (two) Medical times Branch daily with meals. pentazocine 2019- Yes [id number] 1{tbl} Take 1 Univers -naloxone 9-12 [id number] tablet by ity of 50-0.5 mg 00:00: mouth [place] tablet 00 every 6 Medical (six) Branch hours as needed for Pain. cyclobenzap 2018- Yes [id number] 5mg Take 1 Univers rine 5 mg 9-12 [id number] tablet by ity of tablet 00:00: mouth at [place] 00 bedtime. Medical Branch naproxen Yes [id number] 250mg Take 1 [facility] 250 mg 9-12 [id number] tablet by ity of tablet 00:00: mouth 2 (two) Medical times Branch daily with meals. pentazocine Yes [id number] 1{tbl} Take 1 Univers -naloxone 9-12 [id number] tablet by ity of 50-0.5 mg 00:00: mouth [place] tablet 00 every 6 Medical (six) Branch hours as needed for Pain. cyclobenzap Yes [id number] 5mg Take 1 [facility] rine 5 mg 9-12 [id number] tablet by ity of tablet 00:00: mouth at [place] 00 bedtime. Medical Branch naproxen Yes [id number] 250mg Take 1 [facility] 250 mg 9-12 [id number] tablet by ity of tablet 00:00: mouth 2 (two) Medical times Branch daily with meals. pentazocine 2018- Yes [id number] 1{tbl} Take 1 Univers -naloxone 9-12 [id number] tablet by ity of 50-0.5 mg 00:00: mouth [place] tablet 00 every 6 Medical (six) Branch hours as needed for Pain. cyclobenzap Yes [id number] 5mg Take 1 [facility] rine 5 mg 9-12 [id number] tablet by ity of tablet 00:00: mouth at [place] 00 bedtime. Medical Branch naproxen Yes [id number] 250mg Take 1 [facility] 250 mg 9-12 [id number] tablet by ity of tablet 00:00: mouth 2 [place] (two) Medical times Branch daily with meals. pentazocine 2019- Yes [id number] 1{tbl} Take 1 Univers -naloxone 9-12 [id number] tablet by ity of 50-0.5 mg 00:00: mouth [place] tablet 00 every 6 Medical (six) Branch hours as needed for Pain. cyclobenzap Yes [id number] 5mg Take 1 Univers rine 5 mg 9-12 [id number] tablet by ity of tablet 00:00: mouth at [place] 00 bedtime. Medical Branch naproxen Yes [id number] 250mg Take 1 [facility] 250 mg 9-12 [id number] tablet by ity of tablet 00:00: mouth 2 [place] 00 (two) Medical times Branch daily with meals. pentazocine Yes [id number] 1{tbl} Take 1 Univers -naloxone 9-12 [id number] tablet by ity of 50-0.5 mg 00:00: mouth [place] tablet 00 every 6 Medical (six) Branch hours as needed for Pain. cyclobenzap Yes [id number] 5mg Take 1 [facility] rine 5 mg 9-12 [id number] tablet by ity of tablet 00:00: mouth at [place] 00 bedtime. Medical Branch naproxen Yes [id number] 250mg Take 1 [facility] 250 mg 9-12 [id number] tablet by ity of tablet 00:00: mouth 2 [place] 00 (two) Medical times Branch daily with meals. naproxen Yes [id number] 250mg Take 1 [facility] 250 mg 9-12 [id number] tablet by ity of tablet 00:00: mouth 2 [place] (two) Medical times Branch daily with meals. pentazocine Yes [id number] 1{tbl} Take 1 [facility] -naloxone 9-12 [id number] tablet by ity of 50-0.5 mg 00:00: mouth [place] tablet 00 every 6 Medical (six) Branch hours as needed for Pain. cyclobenzap Yes [id number] 5mg Take 1 [facility] rine 5 mg 9-12 [id number] tablet by ity of tablet 00:00: mouth at [place] 00 bedtime. Medical Branch pentazocine Yes [id number] 1{tbl} Take 1 [facility] -naloxone 9-12 [id number] tablet by ity of 50-0.5 mg 00:00: mouth [place] tablet 00 every 6 Medical (six) Branch hours as needed for Pain. naproxen Yes [id number] 250mg Take 1 [facility] 250 mg 9-12 [id number] tablet by ity of tablet 00:00: mouth 2 (two) Medical times Branch daily with meals. pentazocine 2018- Yes [id number] 1{tbl} Take 1 [facility] -naloxone 9-12 [id number] tablet by ity of 50-0.5 mg 00:00: mouth [place] tablet 00 every 6 Medical (six) Branch hours as needed for Pain. cyclobenzap Yes [id number] 5mg Take 1 [facility] rine 5 mg 9-12 [id number] tablet by ity of tablet 00:00: mouth at [place] 00 bedtime. Medical Branch naproxen Yes [id number] 250mg Take 1 [facility] 250 mg 9-12 [id number] tablet by ity of tablet 00:00: mouth 2 (two) Medical times Branch daily with meals. pentazocine 2018- Yes [id number] 1{tbl} Take 1 Univers -naloxone 9-12 [id number] tablet by ity of 50-0.5 mg 00:00: mouth [place] tablet 00 every 6 Medical (six) Branch hours as needed for Pain. cyclobenzap Yes [id number] 5mg Take 1 [facility] rine 5 mg 9-12 [id number] tablet by ity of tablet 00:00: mouth at [place] 00 bedtime. Medical Branch cyclobenzap Yes [id number] 5mg Take 1 [facility] rine 5 mg 9-12 [id number] tablet by ity of tablet 00:00: mouth at [place] 00 bedtime. Medical Branch naproxen Yes [id number] 250mg Take 1 [facility] 250 mg 9-12 [id number] tablet by ity of tablet 00:00: mouth 2 (two) Medical times Branch daily with meals. pentazocine 2018- Yes [id number] 1{tbl} Take 1 Univers -naloxone 9-12 [id number] tablet by ity of 50-0.5 mg 00:00: mouth [place] tablet 00 every 6 Medical (six) Branch hours as needed for Pain. cyclobenzap Yes [id number] 5mg Take 1 [facility] rine 5 mg 9-12 [id number] tablet by ity of tablet 00:00: mouth at [place] 00 bedtime. Medical Branch naproxen 2018- Yes [id number] 250mg Take 1 [facility] 250 mg 9-12 [id number] tablet by ity of tablet 00:00: mouth 2 (two) Medical times Branch daily with meals. pentazocine Yes [id number] 1{tbl} Take 1 [facility] -naloxone 9-12 [id number] tablet by ity of 50-0.5 mg 00:00: mouth [place] tablet 00 every 6 Medical (six) Branch hours as needed for Pain. cyclobenzap Yes [id number] 5mg Take 1 [facility] rine 5 mg 9-12 [id number] tablet by ity of tablet 00:00: mouth at [place] 00 bedtime. Medical Branch naproxen Yes [id number] 250mg Take 1 [facility] 250 mg 9-12 [id number] tablet by ity of tablet 00:00: mouth 2 (two) Medical times Branch daily with meals. pentazocine Yes [id number] 1{tbl} Take 1 [facility] -naloxone 9-12 [id number] tablet by ity of 50-0.5 mg 00:00: mouth [place] tablet 00 every 6 Medical (six) Branch hours as needed for Pain. cyclobenzap Yes [id number] 5mg Take 1 [facility] rine 5 mg 9-12 [id number] tablet by ity of tablet 00:00: mouth at [place] 00 bedtime. Medical Branch naproxen Yes [id number] 250mg Take 1 [facility] 250 mg 9-12 [id number] tablet by ity of tablet 00:00: mouth 2 (two) Medical times Branch daily with meals. pentazocine Yes [id number] 1{tbl} Take 1 [facility] -naloxone 9-12 [id number] tablet by ity of 50-0.5 mg 00:00: mouth [place] tablet 00 every 6 Medical (six) Branch hours as needed for Pain. cyclobenzap Yes [id number] 5mg Take 1 [facility] rine 5 mg 9-12 [id number] tablet by ity of tablet 00:00: mouth at [place] 00 bedtime. Medical Branch naproxen Yes [id number] 250mg Take 1 [facility] 250 mg 9-12 [id number] tablet by ity of tablet 00:00: mouth 2 (two) Medical times Branch daily with meals. pentazocine Yes [id number] 1{tbl} Take 1 [facility] -naloxone 9-12 [id number] tablet by ity of 50-0.5 mg 00:00: mouth [place] tablet 00 every 6 Medical (six) Branch hours as needed for Pain. cyclobenzap 2019-0 Yes [id number] 5mg Take 1 [facility] rine 5 mg 9-12 [id number] tablet by ity of tablet 00:00: mouth at [place] 00 bedtime. Medical Branch naproxen 2019-0 Yes [id number] 250mg Take 1 [facility] 250 mg 9-12 [id number] tablet by ity of tablet 00:00: mouth 2 (two) Medical times Branch daily with meals. pentazocine 2019- Yes [id number] 1{tbl} Take 1 [facility] -naloxone 9-12 [id number] tablet by ity of 50-0.5 mg 00:00: mouth [place] tablet 00 every 6 Medical (six) Branch hours as needed for Pain. cyclobenzap Yes [id number] 5mg Take 1 [facility] rine 5 mg 9-12 [id number] tablet by ity of tablet 00:00: mouth at [place] 00 bedtime. Medical Branch naproxen 2018- Yes [id number] 250mg Take 1 [facility] 250 mg 9-12 [id number] tablet by ity of tablet 00:00: mouth 2 [place] (two) Medical times Branch daily with meals. pentazocine 2018- Yes [id number] 1{tbl} Take 1 Univers -naloxone 9-12 [id number] tablet by ity of 50-0.5 mg 00:00: mouth [place] tablet 00 every 6 Medical (six) Branch hours as needed for Pain. cyclobenzap 2018- Yes [id number] 5mg Take 1 [facility] rine 5 mg 9-12 [id number] tablet by ity of tablet 00:00: mouth at [place] 00 bedtime. Medical Branch naproxen 2019-0 Yes [id number] 250mg Take 1 [facility] 250 mg 9-12 [id number] tablet by ity of tablet 00:00: mouth 2 [place] (two) Medical times Branch daily with meals. pentazocine 2019-0 Yes [id number] 1{tbl} Take 1 [facility] -naloxone 9-12 [id number] tablet by ity of 50-0.5 mg 00:00: mouth [place] tablet 00 every 6 Medical (six) Branch hours as needed for Pain. cyclobenzap 2018- Yes [id number] 5mg Take 1 [facility] rine 5 mg 9-12 [id number] tablet by ity of tablet 00:00: mouth at [place] 00 bedtime. Medical Branch naproxen Yes [id number] 250mg Take 1 [facility] 250 mg 9-12 [id number] tablet by ity of tablet 00:00: mouth 2 (two) Medical times Branch daily with meals. pentazocine Yes [id number] 1{tbl} Take 1 [facility] -naloxone 9-12 [id number] tablet by ity of 50-0.5 mg 00:00: mouth [place] tablet 00 every 6 Medical (six) Branch hours as needed for Pain. cyclobenzap Yes [id number] 5mg Take 1 [facility] rine 5 mg 9-12 [id number] tablet by ity of tablet 00:00: mouth at [place] 00 bedtime. Medical Branch naproxen Yes [id number] 250mg Take 1 [facility] 250 mg 9-12 [id number] tablet by ity of tablet 00:00: mouth 2 (two) Medical times Branch daily with meals. pentazocine Yes [id number] 1{tbl} Take 1 [facility] -naloxone 9-12 [id number] tablet by ity of 50-0.5 mg 00:00: mouth [place] tablet 00 every 6 Medical (six) Branch hours as needed for Pain. cyclobenzap Yes [id number] 5mg Take 1 [facility] rine 5 mg 9-12 [id number] tablet by ity of tablet 00:00: mouth at [place] 00 bedtime. Medical Branch naproxen Yes [id number] 250mg Take 1 [facility] 250 mg 9-12 [id number] tablet by ity of tablet 00:00: mouth 2 (two) Medical times Branch daily with meals. pentazocine Yes [id number] 1{tbl} Take 1 [facility] -naloxone 9-12 [id number] tablet by ity of 50-0.5 mg 00:00: mouth [place] tablet 00 every 6 Medical (six) Branch hours as needed for Pain. cyclobenzap Yes [id number] 5mg Take 1 [facility] rine 5 mg 9-12 [id number] tablet by ity of tablet 00:00: mouth at [place] 00 bedtime. Medical Branch naproxen Yes [id number] 250mg Take 1 [facility] 250 mg 9-12 [id number] tablet by ity of tablet 00:00: mouth 2 (two) Medical times Branch daily with meals. pentazocine Yes [id number] 1{tbl} Take 1 [facility] -naloxone 9-12 [id number] tablet by ity of 50-0.5 mg 00:00: mouth [place] tablet 00 every 6 Medical (six) Branch hours as needed for Pain. cyclobenzap Yes [id number] 5mg Take 1 [facility] rine 5 mg 9-12 [id number] tablet by ity of tablet 00:00: mouth at [place] 00 bedtime. Medical Branch naproxen Yes [id number] 250mg Take 1 [facility] 250 mg 9-12 [id number] tablet by ity of tablet 00:00: mouth 2 (two) Medical times Branch daily with meals. pentazocine Yes [id number] 1{tbl} Take 1 [facility] -naloxone 9-12 [id number] tablet by ity of 50-0.5 mg 00:00: mouth [place] tablet 00 every 6 Medical (six) Branch hours as needed for Pain. cyclobenzap Yes [id number] 5mg Take 1 [facility] rine 5 mg 9-12 [id number] tablet by ity of tablet 00:00: mouth at [place] 00 bedtime. Medical Branch naproxen Yes [id number] 250mg Take 1 [facility] 250 mg 9-12 [id number] tablet by ity of tablet 00:00: mouth 2 (two) Medical times Branch daily with meals. pentazocine Yes [id number] 1{tbl} Take 1 [facility] -naloxone 9-12 [id number] tablet by ity of 50-0.5 mg 00:00: mouth [place] tablet 00 every 6 Medical (six) Branch hours as needed for Pain. cyclobenzap Yes [id number] 5mg Take 1 [facility] rine 5 mg 9-12 [id number] tablet by ity of tablet 00:00: mouth at [place] 00 bedtime. Medical Branch naproxen Yes [id number] 250mg Take 1 [facility] 250 mg 9-12 [id number] tablet by ity of tablet 00:00: mouth 2 (two) Medical times Branch daily with meals. naproxen Yes [id number] 250mg Take 1 [facility] 250 mg 9-12 [id number] tablet by ity of tablet 00:00: mouth 2 (two) Medical times Branch daily with meals. pentazocine Yes [id number] 1{tbl} Take 1 [facility] -naloxone 9-12 [id number] tablet by ity of 50-0.5 mg 00:00: mouth [place] tablet 00 every 6 Medical (six) Branch hours as needed for Pain. cyclobenzap Yes [id number] 5mg Take 1 [facility] rine 5 mg 9-12 [id number] tablet by ity of tablet 00:00: mouth at [place] 00 bedtime. Medical Branch pentazocine Yes [id number] 1{tbl} Take 1 [facility] -naloxone 9-12 [id number] tablet by ity of 50-0.5 mg 00:00: mouth [place] tablet 00 every 6 Medical (six) Branch hours as needed for Pain. cyclobenzap Yes [id number] 5mg Take 1 [facility] rine 5 mg 9-12 [id number] tablet by ity of tablet 00:00: mouth at [place] 00 bedtime. Medical Branch naproxen Yes [id number] 250mg Take 1 [facility] 250 mg 9-12 [id number] tablet by ity of tablet 00:00: mouth 2 [place] 00 (two) Medical times Branch daily with meals. pentazocine Yes [id number] 1{tbl} Take 1 [facility] -naloxone 9-12 [id number] tablet by ity of 50-0.5 mg 00:00: mouth [place] tablet 00 every 6 Medical (six) Branch hours as needed for Pain. cyclobenzap Yes [id number] 5mg Take 1 [facility] rine 5 mg 9-12 [id number] tablet by ity of tablet 00:00: mouth at [place] 00 bedtime. Medical Branch naproxen Yes [id number] 250mg Take 1 [facility] 250 mg 9-12 [id number] tablet by ity of tablet 00:00: mouth 2 [place] 00 (two) Medical times Branch daily with meals. pentazocine Yes [id number] 1{tbl} Take 1 [facility] -naloxone 9-12 [id number] tablet by ity of 50-0.5 mg 00:00: mouth [place] tablet 00 every 6 Medical (six) Branch hours as needed for Pain. cyclobenzap Yes [id number] 5mg Take 1 [facility] rine 5 mg 9-12 [id number] tablet by ity of tablet 00:00: mouth at [place] 00 bedtime. Medical Branch naproxen Yes [id number] 250mg Take 1 [facility] 250 mg 11-19 [id number] tablet by ity of tablet 00:00: mouth 2 [place] 00 (two) Medical times Branch daily with meals. pentazocine Yes [id number] 1{tbl} Take 1 [facility] -naloxone 11-19 [id number] tablet by ity of 50-0.5 mg 00:00: mouth [place] tablet 00 every 6 Medical (six) Branch hours as needed for Pain. cyclobenzap Yes [id number] 5mg Take 1 [facility] rine 5 mg 11-19 [id number] tablet by ity of tablet 00:00: mouth at [place] 00 bedtime. Medical Branch naproxen Yes [id number] 250mg Take 1 [facility] 250 mg 11-19 [id number] tablet by ity of tablet 00:00: mouth 2 [place] 00 (two) Medical times Branch daily with meals. pentazocine Yes [id number] 1{tbl} Take 1 [facility] -naloxone 11-19 [id number] tablet by ity of 50-0.5 mg 00:00: mouth [place] tablet 00 every 6 Medical (six) Branch hours as needed for Pain. cyclobenzap Yes [id number] 5mg Take 1 [facility] rine 5 mg 11-19 [id number] tablet by ity of tablet 00:00: mouth at [place] 00 bedtime. Medical Branch acetaminoph 2019- No [id number] 650mg Take 2 [facility] en 11-19 [id number] tablets by ity of (TYLENOL) 00:00: 04:59 [place] 4 [place] 325 [place] 00 :00 (four) Medical tablet times Branch daily for 5 days. This is the maximum safe dose for a healthy adult. atorvastati Yes 20 mg = 1 M emoria n 20 mg 1-03 tab, PO, l oral tablet 22:12: Daily, 0 He rmann Refill(s) cyclobenzap Yes 10 mg = 1 M emoria rine 10 mg 1-03 tab, PO, l oral tablet 22:12: TID, 0 Herm daisy 00 Refill(s) Klor-Con 10 Yes 10 mEq, Mem oria 1-03 PO, BID, 0 l 22:12: Refill(s) Renny Furosemide Yes 40 mg = 1 Me moria 40 MG Oral -03 tab, PO, l Tablet 22:12: Daily, 0 [place] 00 Refill(s) Citalopram 2018 Yes 40 mg = 1 Me moria 40 MG Oral 1-03 tab, PO, l Tablet 22:12: Daily, 0 [place] [Celexa] 00 Refill(s) spironolact Yes 25 mg = 1 M emoria one 25 mg -03 tab, PO, l oral tablet 22:12: BID, 0 Herm Refill(s) atorvastati Yes 20 mg = 1 M emoria n 20 mg -03 tab, PO, l oral tablet 22:12: Daily, 0 He rm Refill(s) cyclobenzap Yes 10 mg = 1 M emoria rine 10 mg - tab, PO, l oral tablet 22:12: TID, 0 Herm Refill(s) Klor-Con 10 Yes 10 mEq, Mem oria -03 PO, BID, 0 l 22:12: Refill(s) [place] 00 Furosemide Yes 40 mg = 1 Me moria 40 MG Oral -03 tab, PO, l Tablet 22:12: Daily, 0 [place] 00 Refill(s) gabapentin Yes 300 mg = 3 M emoria 100 MG Oral 03 cap, PO, l Capsule 22:12: TID, 0 [place] 00 Refill(s) Acetaminoph 0 Yes 1 tab, PO, Memoria en 325 MG / 03 Q6H, 0 l Hydrocodone 22:12: Refill(s) H ermann Bitartrate 00 5 MG Oral Tablet [[place] 5/325] Omeprazole 2018-0 Yes PO, Daily, M emoria 1-03 0 l 22:12: Refill(s) gabapentin Yes 300 mg = 3 M emoria 100 MG Oral -03 cap, PO, l Capsule 22:12: TID, 0 [place] 00 Refill(s) Acetaminoph 0 Yes 1 tab, PO, Memoria en 325 MG / 03 Q6H, 0 l Hydrocodone 22:12: Refill(s) H ermann Bitartrate 00 5 MG Oral Tablet [[place] 5/325] Omeprazole Yes PO, Daily, M emoria 1-03 0 l 22:12: Refill(s) [place] 00 Citalopram Yes 40 mg = 1 Me moria 40 MG Oral 1-03 tab, PO, l Tablet 22:12: Daily, 0 [place] [Celexa] 00 Refill(s) spironolact Yes 25 mg = 1 M emoria one 25 mg 1-03 tab, PO, l oral tablet 22:12: BID, 0 Herm daisy 00 Refill(s) CITALOPRAM Yes Take by [facility] HYDROBROMID 08-08 mouth. ity of E (CELEXA 19:24: [place] ORAL) Medical Branch CARVEDILOL Yes Take by [facility] ORAL 08-08 mouth. ity of 19:24: [place] [facility] OMEPRAZOLE Yes Take by [facility] MAGNESIUM 08-08 mouth. ity of (PRILOSEC 19:24: [place] OTC ORAL) Medical Branch selexipag Yes Take by [facility] rs (UPTRAVI) 08-08 mouth. ity of 1,000 mcg 19:24: [place] Tab Medical Branch CITALOPRAM Yes Take by [facility] HYDROBROMID 08-08 mouth. ity of E (CELEXA 19:24: [place] ORAL) Medical Branch CARVEDILOL Yes Take by [facility] ORAL 08-08 mouth. ity of 19:24: [place] [facility] OMEPRAZOLE Yes Take by [facility] MAGNESIUM 08-08 mouth. ity of (PRILOSEC 19:24: [place] OTC ORAL) Medical Branch OMEPRAZOLE Yes Take by [facility] MAGNESIUM 08-08 mouth. ity of (PRILOSEC 19:24: [place] OTC ORAL) Medical Branch selexipag Yes [facility] ([facility] 08-08 mouth. ity of 1,000 mcg 19:24: [place] Tab Medical Branch CITALOPRAM Yes Take by [facility] HYDROBROMID 08-08 mouth. ity of E (CELEXA 19:24: [place] ORAL) 51 Medical Branch CARVEDILOL 2016 Yes Take by [facility] ers ORAL 6- mouth. ity of 19:24: [place] [address] Medical Branch selexipag 2016 Yes Take by [facility] rs (UPTRAVI) 6- mouth. ity of 1,000 mcg 19:24: [place] Tab Medical Branch OMEPRAZOLE 20160 Yes Take by [facility] ers MAGNESIUM 6-01 mouth. ity of (PRILOSEC 19:24: [place] OTC ORAL) 51 Medical Branch CITALOPRAM 2016-0 Yes Take by [facility] ers HYDROBROMID 6- mouth. ity of E (CELEXA 19:24: [place] ORAL) 51 Medical Branch selexipag Yes Take by [facility] rs (UPTRAVI) 6- mouth. ity of 1,000 mcg 19:24: [place] [facility] Medical Branch CITALOPRAM Yes Take by Univ ers HYDROBROMID 6- mouth. ity of E (CELEXA 19:24: [place] ORAL) 51 Medical Branch CARVEDILOL Yes Take by [facility] ers ORAL 6- mouth. ity of 19:24: [place] [address] Medical Branch CARVEDILOL Yes Take by [facility] ers ORAL 6- mouth. ity of 19:24: [place] [address] Medical Branch OMEPRAZOLE 20160 Yes Take by [facility] ers MAGNESIUM 6-01 mouth. ity of (PRILOSEC 19:24: [place] OTC ORAL) Medical Branch selexipag Yes Take by [facility] rs (UPTRAVI) 6 mouth. ity of 1,000 mcg 19:24: [place] Tab Medical Branch CITALOPRAM 0 Yes Take by [facility] ers HYDROBROMID 6-01 mouth. ity of E (CELEXA 19:24: [place] ORAL) 51 Medical Branch CARVEDILOL 0 Yes Take by [facility] ers ORAL 6-01 mouth. ity of 19:24: [place] [address] Medical Branch OMEPRAZOLE 2016-0 Yes Take by Univ ers MAGNESIUM 6-01 mouth. ity of (PRILOSEC 19:24: [place] OTC ORAL) Medical Branch selexipag Yes Take by [facility] rs (UPTRAVI) 6-01 mouth. ity of 1,000 mcg 19:24: [place] [facility] Medical Branch CITALOPRAM 2016-0 Yes Take by Univ ers HYDROBROMID 6- mouth. ity of E (CELEXA 19:24: [place] ORAL) 51 Medical Branch CARVEDILOL 2016-0 Yes Take by [facility] ers ORAL 6- mouth. ity of 19:24: [place] [address] Medical Branch OMEPRAZOLE 2016-0 Yes Take by [facility] MAGNESIUM 6-01 mouth. ity of (PRILOSEC 19:24: [place] OTC ORAL) 51 Medical Branch selexipag 2016-0 Yes [facility] (UPTR[facility]I) 6 mouth. ity of 1,000 mcg 19:24: [place] [facility] Medical Branch CITALOPRAM 2016-0 Yes Take by [facility] HYDROBROMID 6- mouth. ity of E (CELEXA 19:24: [place] ORAL) 51 Medical Branch CARVEDILOL 2016-0 Yes Take by [facility] ORAL 6- mouth. ity of 19:24: [place] [address] Medical Branch OMEPRAZOLE 2016 Yes Take by [facility] MAGNESIUM 6-01 mouth. ity of (PRILOSEC 19:24: [place] OTC ORAL) Medical Branch selexipag Yes Take by [facility] ers (UPTRAVI) 6 mouth. ity of 1,000 mcg 19:24: [place] [address] Medical Branch CITALOPRAM Yes Take by [facility] HYDROBROMID 6- mouth. ity of E (CELEXA 19:24: [place] ORAL) Medical Branch CARVEDILOL Yes Take by [facility] ORAL 6- mouth. ity of 19:24: [place] [address] Medical Branch OMEPRAZOLE 2016-0 Yes Take by [facility] MAGNESIUM 6-01 mouth. ity of (PRILOSEC 19:24: [place] OTC ORAL) 51 Medical Branch selexipag 2016 Yes [facility] (UPTRAVI) 6-01 mouth. ity of 1,000 mcg 19:24: [place] Tab Medical Branch CITALOPRAM 2016-0 Yes Take by [facility] HYDROBROMID 6-01 mouth. ity of E (CELEXA 19:24: [place] ORAL) 51 Medical Branch CARVEDILOL 2016-0 Yes Take by [facility] ers ORAL 6-01 mouth. ity of 19:24: [place] [address] Medical Branch OMEPRAZOLE 2016-0 Yes Take by [facility] MAGNESIUM 6-01 mouth. ity of (PRILOSEC 19:24: [place] OTC ORAL) 51 Medical Branch selexipag 2016 Yes Take by [facility] rs (UPTRAVI) 6 mouth. ity of 1,000 mcg 19:24: [place] Tab Medical Branch CITALOPRAM 20160 Yes Take by Univ ers HYDROBROMID 6 mouth. ity of E (CELEXA 19:24: [place] ORAL) 51 Medical Branch CARVEDILOL 2016-0 Yes Take by Univ ers ORAL 6 mouth. ity of 19:24: [place] [address] Medical Branch OMEPRAZOLE 20160 Yes Take by [facility] ers MAGNESIUM 6-01 mouth. ity of (PRILOSEC 19:24: [place] OTC ORAL) 51 Medical Branch selexipag Yes Take by [facility] rs (UPTRAVI) 6 mouth. ity of 1,000 mcg 19:24: [place] [address] Medical Branch CITALOPRAM Yes Take by Univ ers HYDROBROMID 6 mouth. ity of E (CELEXA 19:24: [place] ORAL) 51 Medical Branch CARVEDILOL 0 Yes Take by Univ ers ORAL 6 mouth. ity of 19:24: [place] [address] Medical Branch OMEPRAZOLE 20160 Yes Take by [facility] ers MAGNESIUM 601 mouth. ity of (PRILOSEC 19:24: [place] OTC ORAL) 51 Medical Branch selexipag Yes Take by [facility] rs (UPTRAVI) 6 mouth. ity of 1,000 mcg 19:24: [place] [address] Medical Branch CITALOPRAM Yes Take by [facility] ers HYDROBROMID 6 mouth. ity of E (CELEXA 19:24: [place] ORAL) 51 Medical Branch CARVEDILOL 20160 Yes Take by Univ ers ORAL 6 mouth. ity of 19:24: [place] [address] Medical Branch OMEPRAZOLE 2016-0 Yes Take by Univ ers MAGNESIUM 6-01 mouth. ity of (PRILOSEC 19:24: [place] OTC ORAL) 51 Medical Branch selexipag Yes Take by [facility] rs (UPTRAVI) 6 mouth. ity of 1,000 mcg 19:24: [place] [address] Medical Branch CITALOPRAM 20160 Yes Take by Univ ers HYDROBROMID 6-01 mouth. ity of E (CELEXA 19:24: [place] ORAL) Medical Branch CARVEDILOL 2016-0 Yes Take by [facility] ers ORAL 6 mouth. ity of 19:24: [place] [address] Medical Branch OMEPRAZOLE 2016-0 Yes Take by [facility] MAGNESIUM 6-01 mouth. ity of (PRILOSEC 19:24: [place] OTC ORAL) Medical Branch selexipag 2016- Yes Take by [facility] rs (UPTRAVI) 6 mouth. ity of 1,000 mcg 19:24: [place] [facility] Medical Branch CITALOPRAM 20160 Yes Take by [facility] ers HYDROBROMID 6 mouth. ity of E (CELEXA 19:24: [place] ORAL) Medical Branch CARVEDILOL 2016-0 Yes Take by [facility] ORAL 6 mouth. ity of 19:24: [place] [address] Medical Branch OMEPRAZOLE 2016 Yes Take by [facility] MAGNESIUM 6- mouth. ity of (PRILOSEC 19:24: [place] OTC ORAL) Medical Branch selexipag Yes Take by [facility] rs (UPTRAVI) 6 mouth. ity of 1,000 mcg 19:24: [place] [address] Medical Branch CITALOPRAM 2016 Yes Take by [facility] HYDROBROMID 6 mouth. ity of E (CELEXA 19:24: [place] ORAL) Medical Branch CARVEDILOL 0 Yes Take by [facility] ORAL 6 mouth. ity of 19:24: [place] [address] Medical Branch OMEPRAZOLE 20160 Yes Take by [facility] MAGNESIUM 6-01 mouth. ity of (PRILOSEC 19:24: [place] OTC ORAL) Medical Branch selexipag 2016 Yes Take by [facility] ers (UPTRAVI) 6 mouth. ity of 1,000 mcg 19:24: [place] [address] Medical Branch CITALOPRAM 2016-0 Yes Take by [facility] HYDROBROMID 6 mouth. ity of E (CELEXA 19:24: [place] ORAL) Medical Branch CARVEDILOL 0 Yes Take by [facility] ers ORAL 6- mouth. ity of 19:24: [place] [address] Medical Branch OMEPRAZOLE 2016-0 Yes Take by [facility] MAGNESIUM 6-01 mouth. ity of (PRILOSEC 19:24: [place] OTC ORAL) 51 Medical Branch selexipag 2016-0 Yes Take by [facility] rs (UPTRAVI) 6 mouth. ity of 1,000 mcg 19:24: [place] Tab Medical Branch CITALOPRAM 2016-0 Yes Take by [facility] ers HYDROBROMID 6 mouth. ity of E (CELEXA 19:24: [place] ORAL) 51 Medical Branch CARVEDILOL 2016-0 Yes Take by [facility] ers ORAL 6 mouth. ity of 19:24: [place] [address] Medical Branch OMEPRAZOLE 2016-0 Yes Take by Univ ers MAGNESIUM 6-01 mouth. ity of (PRILOSEC 19:24: [place] OTC ORAL) 51 Medical Branch selexipag Yes Take by [facility] rs (UPTRAVI) 6 mouth. ity of 1,000 mcg 19:24: [place] [address] Medical Branch CITALOPRAM Yes Take by [facility] ers HYDROBROMID 6 mouth. ity of E (CELEXA 19:24: [place] ORAL) 51 Medical Branch CARVEDILOL 20160 Yes Take by Univ ers ORAL 6 mouth. ity of 19:24: [place] [address] Medical Branch OMEPRAZOLE 2016-0 Yes Take by [facility] ers MAGNESIUM 6-01 mouth. ity of (PRILOSEC 19:24: [place] OTC ORAL) Medical Branch selexipag Yes Take by [facility] rs (UPTRAVI) 6 mouth. ity of 1,000 mcg 19:24: [place] [address] Medical Branch CITALOPRAM 0 Yes Take by [facility] ers HYDROBROMID 6 mouth. ity of E (CELEXA 19:24: [place] ORAL) 51 Medical Branch CARVEDILOL 2016-0 Yes Take by Univ ers ORAL 08-08 mouth. ity of 19:24: [place] [address] Medical Branch OMEPRAZOLE 2016-0 Yes Take by Univ ers MAGNESIUM 6-01 mouth. ity of (PRILOSEC 19:24: [place] OTC ORAL) 51 Medical Branch selexipag Yes Take by [facility] rs (UPTRAVI) 6 mouth. ity of 1,000 mcg 19:24: [place] [address] Medical Branch CITALOPRAM 2016-0 Yes Take by Univ ers HYDROBROMID 601 mouth. ity of E (CELEXA 19:24: [place] ORAL) 51 Medical Branch CARVEDILOL 2016-0 Yes Take by [facility] ers ORAL 6 mouth. ity of 19:24: [place] [address] Medical Branch OMEPRAZOLE 2016-0 Yes Take by [facility] ers MAGNESIUM 6- mouth. ity of (PRILOSEC 19:24: [place] OTC ORAL) 51 Medical Branch selexipag Yes Take by [facility] rs (UPTRAVI) 6 mouth. ity of 1,000 mcg 19:24: [place] Tab Medical Branch CITALOPRAM 2016 Yes Take by [facility] ers HYDROBROMID 6 mouth. ity of E (CELEXA 19:24: [place] ORAL) 51 Medical Branch CARVEDILOL Yes Take by [facility] ers ORAL 6 mouth. ity of 19:24: [place] [address] Medical Branch OMEPRAZOLE 2016 Yes Take by [facility] ers MAGNESIUM 6 mouth. ity of (PRILOSEC 19:24: [place] OTC ORAL) Medical Branch selexipag Yes Take by [facility] rs (UPTRAVI) 6 mouth. ity of 1,000 mcg 19:24: [place] Tab Medical Branch CITALOPRAM Yes Take by [facility] ers HYDROBROMID 6 mouth. ity of E (CELEXA 19:24: [place] ORAL) 51 Medical Branch CARVEDILOL 0 Yes Take by [facility] ers ORAL 6 mouth. ity of 19:24: [place] [address] Medical Branch OMEPRAZOLE Yes Take by [facility] ers MAGNESIUM 6-01 mouth. ity of (PRILOSEC 19:24: [place] OTC ORAL) 51 Medical Branch selexipag Yes Take by [facility] rs (UPTRAVI) 6 mouth. ity of 1,000 mcg 19:24: [place] [address] Medical Branch CITALOPRAM 20160 Yes Take by [facility] ers HYDROBROMID 601 mouth. ity of E (CELEXA 19:24: [place] ORAL) 51 Medical Branch CARVEDILOL 0 Yes Take by Univ ers ORAL 6 mouth. ity of 19:24: [place] [address] Medical Branch OMEPRAZOLE 20160 Yes Take by [facility] ers MAGNESIUM 6-01 mouth. ity of (PRILOSEC 19:24: [place] OTC ORAL) 51 Medical Branch selexipag 2016 Yes Take by Univ ers (UPTRAVI) 6 mouth. ity of 1,000 mcg 19:24: [place] Tab Medical Branch CITALOPRAM 2016-0 Yes Take by [facility] ers HYDROBROMID 6 mouth. ity of E (CELEXA 19:24: [place] ORAL) 51 Medical Branch CARVEDILOL Yes Take by [facility] ers ORAL 6 mouth. ity of 19:24: [place] [address] Medical Branch OMEPRAZOLE 2016-0 Yes Take by [facility] ers MAGNESIUM 6-01 mouth. ity of (PRILOSEC 19:24: [place] OTC ORAL) Medical Branch selexipag Yes Take by [facility] rs (UPTRAVI) 6 mouth. ity of 1,000 mcg 19:24: [place] [address] Medical Branch CITALOPRAM Yes Take by [facility] ers HYDROBROMID 6 mouth. ity of E (CELEXA 19:24: [place] ORAL) Medical Branch CARVEDILOL Yes Take by Univ ers ORAL 6 mouth. ity of 19:24: [place] [address] Medical Branch OMEPRAZOLE Yes Take by [facility] ers MAGNESIUM 6-01 mouth. ity of (PRILOSEC 19:24: [place] OTC ORAL) Medical Branch selexipag Yes Take by [facility] rs (UPTRAVI) 6 mouth. ity of 1,000 mcg 19:24: [place] [address] Medical Branch CITALOPRAM 2016 Yes Take by [facility] ers HYDROBROMID 6 mouth. ity of E (CELEXA 19:24: [place] ORAL) Medical Branch CARVEDILOL 0 Yes Take by Univ ers ORAL 6 mouth. ity of 19:24: [place] [address] Medical Branch OMEPRAZOLE 2016-0 Yes Take by [facility] ers MAGNESIUM 6-01 mouth. ity of (PRILOSEC 19:24: [place] OTC ORAL) Medical Branch selexipag 0 Yes Take by [facility] rs (UPTRAVI) 6 mouth. ity of 1,000 mcg 19:24: [place] [address] Medical Branch OMEPRAZOLE 2016-0 Yes Take by Univ ers MAGNESIUM 6-01 mouth. ity of (PRILOSEC 14:24: [place] OTC ORAL) Medical Branch selexipag 2016 Yes Take by [facility] rs (UPTRAVI) 6- mouth. ity of 1,000 mcg 14:24: [place] [facility] Medical Branch CITALOPRAM 20160 Yes Take by [facility] ers HYDROBROMID 6- mouth. ity of E (CELEXA 14:24: [place] ORAL) Medical Branch CARVEDILOL Yes Take by Univ ers ORAL 6- mouth. ity of 14:24: [place] [address] Medical Branch OMEPRAZOLE 2016-0 Yes Take by [facility] ers MAGNESIUM 6-01 mouth. ity of (PRILOSEC 14:24: [place] OTC ORAL) Medical Branch selexipag Yes Take by [facility] rs (UPTRAVI) 6 mouth. ity of 1,000 mcg 14:24: [place] [address] Medical Branch CITALOPRAM Yes Take by [facility] ers HYDROBROMID 6- mouth. ity of E (CELEXA 14:24: [place] ORAL) Medical Branch CARVEDILOL Yes Take by [facility] ers ORAL 6 mouth. ity of 14:24: [place] [address] Medical Branch losartan Yes Univers (COZAAR) 50 3-20 ity of mg tablet 00:00: [place] [facility] losartan 0 Yes Univers (COZAAR) [...] tablet 00:00: [place] 00 Medical Branch losartan 20160 Yes Univers (COZAAR) 50 3-20 ity of mg tablet 00:00: [place] 00 Medical Branch losartan 0 Yes Univers (COZAAR) 50 3-20 ity of mg tablet 00:00: [place] 00 Medical Branch losartan 0 Yes Univers (COZAAR) 50 3-20 ity of mg tablet 00:00: [place] 00 Medical Branch losartan 20160 Yes Univers (COZAAR) 50 3-20 ity of mg tablet 00:00: Medical Branch losartan 2016-0 Yes Univers (COZAAR) 50 3-20 ity of mg tablet 00:00: Medical Branch losartan 20160 Yes Univers (COZAAR) 50 3-20 ity of mg tablet 00:00: Medical Branch losartan 20160 Yes Univers (COZAAR) 50 3-20 ity of mg tablet 00:00: Medical Branch losartan 20160 Yes Univers (COZAAR) 50 3-20 ity of mg tablet 00:00: Medical Branch losartan 20160 Yes Univers (COZAAR) 50 3-20 ity of mg tablet 00:00: Medical Branch losartan 20160 Yes Univers (COZAAR) 50 3-20 ity of mg tablet 00:00: Medical Branch losartan 20160 Yes Univers (COZAAR) 50 3-20 ity of mg tablet 00:00: Medical Branch losartan 20160 Yes Univers (COZAAR) 50 3-20 ity of mg tablet 00:00: Medical Branch losartan 20160 Yes Univers (COZAAR) 50 3-20 ity of mg tablet 00:00: Medical Branch losartan 2016-0 Yes Univers (COZAAR) 50 3-20 ity of mg tablet 00:00: Medical Branch losartan 20160 Yes Univers (COZAAR) 50 3-20 ity of mg tablet 00:00: Medical Branch losartan 2016-0 Yes Univers (COZAAR) 50 3-20 ity of mg tablet 00:00: Medical Branch losartan 2016-0 Yes Univers (COZAAR) 50 3-20 ity of mg tablet 00:00: Medical Branch losartan 2016-0 Yes Univers (COZAAR) 50 3-20 ity of mg tablet 00:00: Medical Branch losartan 2016-0 Yes Univers (COZAAR) 50 3-20 ity of mg tablet 00:00: Medical Branch losartan 2016-0 Yes Univers (COZAAR) 50 3-20 ity of mg tablet 00:00: Medical Branch losartan 2016-0 Yes Univers (COZAAR) 50 3-20 ity of mg tablet 00:00: [address] losartan 2016 Yes Univers (COZAAR) 50 3-20 ity of mg tablet 00:00: [address] losartan 2016 Yes Univers (COZAAR) 50 3-20 ity of mg tablet 00:00: [address] prilosec prilosec No prilosec lyrica lyrica No lyrica Citalopram Citalopram No Citalopram Hydrobromid Hydrobromid Hydrobromi e 20 MG e 20 MG de 20 MG amLODIPine- amLODIPine- No amLODIPine Olmesartan Olmesartan -Olmesarta 5-20 MG 5-20 MG n 5-20 MG Atorvastati Atorvastati No 1{table QD Atorvastat n Calcium n Calcium t} in Calcium 20 MG 20 MG 20 MG Ambien 10 Ambien 10 No Ambien 10 MG MG MG Gabapentin Gabapentin No Gabapentin prilosec prilosec No prilosec lyrica lyrica No lyrica Citalopram Citalopram No Citalopram Hydrobromid Hydrobromid Hydrobromi e 20 MG e 20 MG de 20 MG amLODIPine- amLODIPine- No amLODIPine Olmesartan Olmesartan -Olmesarta 5-20 MG 5-20 MG n 5-20 MG Atorvastati Atorvastati No 1{table QD Atorvastat n Calcium n Calcium t} in Calcium 20 MG 20 MG 20 MG Ambien 10 Ambien 10 No Ambien 10 MG MG MG Gabapentin Gabapentin No Gabapentin prilosec prilosec No prilosec lyrica lyrica No lyrica Citalopram Citalopram No Citalopram Hydrobromid Hydrobromid Hydrobromi e 20 MG e 20 MG de 20 MG amLODIPine- amLODIPine- No amLODIPine Olmesartan Olmesartan -Olmesarta 5-20 MG 5-20 MG n 5-20 MG Atorvastati Atorvastati No 1{table QD Atorvastat n Calcium n Calcium t} in Calcium 20 MG 20 MG 20 MG Ambien 10 Ambien 10 No Ambien 10 MG MG MG Gabapentin Gabapentin No Gabapentin Celexa Celexa Yes Na Perez 1 tablet Comm on [facility] [email or web address] [facility] Baclofen Baclofen Yes Na Perez as Comm on directed [facility] Prilosec Prilosec Yes Na Perez 1 capsule Common 30 minutes [facility] before - [facility] morning [facility] Ambien Ambien Yes Na Perez TAKE 1 Common TABLET BY [facility] MOUTH - [facility] EVERY DAY [facility] AT BEDTIME [facility] NEEDED Medical [place] Amlodipine- Amlodipine- Yes Na Perez 1 tablet Common Olmesartan Olmesartan Spi rit - [facility] Ambien 10 Ambien 10 No 1{table QD Ambien 10 t_at_be dtime_a s_neede d} Ambien 10 Ambien 10 No 1{table QD Ambien 10 MG MG t_at_be MG dtime_a s_neede d} Baclofen Baclofen No Baclofen 0.05 MG/ML 0.05 MG/ML 0.05 MG/ML Baclofen 10 Baclofen 10 No Baclofen MG MG 10 MG CeleXA 20 CeleXA 20 No 1{table QD CeleXA 20 MG MG t} MG amLODIPine- amLODIPine- No amLODIPine Olmesartan Olmesartan -Olmesarta 5-20 MG 5-20 MG n 5-20 MG PriLOSEC 40 PriLOSEC 40 No QD PriLOSEC MG MG 40 MG Ambien 10 Ambien 10 No Ambien 10 MG MG MG CeleXA 20 CeleXA 20 No 1{table QD CeleXA 20 MG MG t} MG Ambien 10 Ambien 10 No 1{table QD Ambien 10 MG MG t_at_be MG dtime_a s_neede d} PriLOSEC 40 PriLOSEC 40 No QD PriLOSEC MG MG 40 MG Baclofen Baclofen No Baclofen 0.05 MG/ML 0.05 MG/ML 0.05 MG/ML Ambien 10 Ambien 10 No 1{table QD Ambien 10 t_at_be dtime_a s_neede d} Ambien 10 Ambien 10 No Ambien 10 MG MG MG amLODIPine- amLODIPine- No amLODIPine Olmesartan Olmesartan -Olmesarta 5-20 MG 5-20 MG n 5-20 MG Baclofen 10 Baclofen 10 No Baclofen MG MG 10 MG amLODIPine- amLODIPine- No amLODIPine Olmesartan Olmesartan -Olmesarta 5-20 MG 5-20 MG n 5-20 MG Baclofen 10 Baclofen 10 No Baclofen MG MG 10 MG Ambien 10 Ambien 10 No 1{table QD Ambien 10 t_at_be dtime_a s_neede d} CeleXA 20 CeleXA 20 No 1{table QD CeleXA 20 MG MG t} MG Baclofen Baclofen No Baclofen 0.05 MG/ML 0.05 MG/ML 0.05 MG/ML Atorvastati Atorvastati No 1{table QD Atorvastat n Calcium n Calcium t} in Calcium 20 MG 20 MG 20 MG PriLOSEC 40 PriLOSEC 40 No QD PriLOSEC MG MG 40 MG amLODIPine- amLODIPine- No amLODIPine Olmesartan Olmesartan -Olmesarta 5-20 MG 5-20 MG n 5-20 MG Baclofen 10 Baclofen 10 No Baclofen MG MG 10 MG Ambien 10 Ambien 10 No 1{table QD Ambien 10 t_at_be dtime_a s_neede d} CeleXA 20 CeleXA 20 No 1{table QD CeleXA 20 MG MG t} MG Baclofen Baclofen No Baclofen 0.05 MG/ML 0.05 MG/ML 0.05 MG/ML Atorvastati Atorvastati No 1{table QD Atorvastat n Calcium n Calcium t} in Calcium 20 MG 20 MG 20 MG PriLOSEC 40 PriLOSEC 40 No QD PriLOSEC MG MG 40 MG amLODIPine- amLODIPine- No amLODIPine Olmesartan Olmesartan -Olmesarta 5-20 MG 5-20 MG n 5-20 MG Baclofen 10 Baclofen 10 No Baclofen MG MG 10 MG Ambien 10 Ambien 10 No 1{table QD Ambien 10 t_at_be dtime_a s_neede d} CeleXA 20 CeleXA 20 No 1{table QD CeleXA 20 MG MG t} MG Baclofen Baclofen No Baclofen 0.05 MG/ML 0.05 MG/ML 0.05 MG/ML Atorvastati Atorvastati No 1{table QD Atorvastat n Calcium n Calcium t} in Calcium 20 MG 20 MG 20 MG PriLOSEC 40 PriLOSEC 40 No QD PriLOSEC MG MG 40 MG Ambien 10 Ambien 10 No 1{table QD Ambien 10 t_at_be dtime_a s_neede d} Baclofen 10 Baclofen 10 No Baclofen MG MG 10 MG Atorvastati Atorvastati No 1{table QD Atorvastat n Calcium n Calcium t} in Calcium 20 MG 20 MG 20 MG PriLOSEC 40 PriLOSEC 40 No QD PriLOSEC MG MG 40 MG amLODIPine- amLODIPine- No amLODIPine Olmesartan Olmesartan -Olmesarta 5-20 MG 5-20 MG n 5-20 MG CeleXA 20 CeleXA 20 No 1{table QD CeleXA 20 MG MG t} MG Baclofen Baclofen No Baclofen 0.05 MG/ML 0.05 MG/ML 0.05 MG/ML Ambien 10 Ambien 10 No 1{table QD Ambien 10 t_at_be dtime_a s_neede d} Baclofen 10 Baclofen 10 No Baclofen MG MG 10 MG Atorvastati Atorvastati No 1{table QD Atorvastat n Calcium n Calcium t} in Calcium 20 MG 20 MG 20 MG PriLOSEC 40 PriLOSEC 40 No QD PriLOSEC MG MG 40 MG amLODIPine- amLODIPine- No amLODIPine Olmesartan Olmesartan -Olmesarta 5-20 MG 5-20 MG n 5-20 MG CeleXA 20 CeleXA 20 No 1{table QD CeleXA 20 MG MG t} MG Baclofen Baclofen No Baclofen 0.05 MG/ML 0.05 MG/ML 0.05 MG/ML Baclofen 10 Baclofen 10 No MG MG Atorvastati Atorvastati No 1{table QD n Calcium n Calcium t} 20 MG 20 MG CeleXA 20 CeleXA 20 No 1{table QD MG MG t} Baclofen Baclofen No 0.05 MG/ML 0.05 MG/ML Ambien 10 Ambien 10 No 1{table QD t_at_be dtime_a s_neede d} PriLOSEC 40 PriLOSEC 40 No QD MG MG amLODIPine- amLODIPine- No Olmesartan Olmesartan 5-20 MG 5-20 MG Baclofen 10 Baclofen 10 No Baclofen MG MG 10 MG amLODIPine- amLODIPine- No amLODIPine Olmesartan Olmesartan -Olmesarta 5-20 MG 5-20 MG n 5-20 MG amLODIPine- amLODIPine- No amLODIPine Olmesartan Olmesartan -Olmesarta 5-20 MG 5-20 MG n 5-20 MG Citalopram Citalopram No Citalopram Hydrobromid Hydrobromid Hydrobromi e 20 MG e 20 MG de 20 MG Baclofen Baclofen No Baclofen 0.05 MG/ML 0.05 MG/ML 0.05 MG/ML Ambien 10 Ambien 10 No Ambien 10 MG MG MG Gabapentin Gabapentin No 1{capsu QD Gabapentin 300 MG 300 MG le} 300 MG Atorvastati Atorvastati No 1{table QD Atorvastat n Calcium n Calcium t} in Calcium 20 MG 20 MG 20 MG Ambien 10 Ambien 10 No 1{table QD Ambien 10 t_at_be dtime_a s_neede d} PriLOSEC 40 PriLOSEC 40 No QD PriLOSEC MG MG 40 MG Gabapentin Gabapentin No 1{capsu QD Gabapentin 300 MG 300 MG le} 300 MG amLODIPine- amLODIPine- No amLODIPine Olmesartan Olmesartan -Olmesarta 5-20 MG 5-20 MG n 5-20 MG amLODIPine- amLODIPine- No amLODIPine Olmesartan Olmesartan -Olmesarta 5-20 MG 5-20 MG n 5-20 MG Baclofen Baclofen No Baclofen 0.05 MG/ML 0.05 MG/ML 0.05 MG/ML Ambien 10 Ambien 10 No Ambien 10 MG MG MG Citalopram Citalopram No Citalopram Hydrobromid Hydrobromid Hydrobromi e 20 MG e 20 MG de 20 MG PriLOSEC 40 PriLOSEC 40 No QD PriLOSEC MG MG 40 MG Baclofen 10 Baclofen 10 No Baclofen MG MG 10 MG Atorvastati Atorvastati No 1{table QD Atorvastat n Calcium n Calcium t} in Calcium 20 MG 20 MG 20 MG amLODIPine- amLODIPine- No amLODIPine Olmesartan Olmesartan -Olmesarta 5-20 MG 5-20 MG n 5-20 MG Baclofen Baclofen No Baclofen 0.05 MG/ML 0.05 MG/ML 0.05 MG/ML Citalopram Citalopram No Citalopram Hydrobromid Hydrobromid Hydrobromi e 20 MG e 20 MG de 20 MG PriLOSEC 40 PriLOSEC 40 No QD PriLOSEC MG MG 40 MG Atorvastati Atorvastati No 1{table QD Atorvastat n Calcium n Calcium t} in Calcium 20 MG 20 MG 20 MG amLODIPine- amLODIPine- No amLODIPine Olmesartan Olmesartan -Olmesarta 5-20 MG 5-20 MG n 5-20 MG Gabapentin Gabapentin No 1{capsu QD Gabapentin 300 MG 300 MG le} 300 MG Baclofen 10 Baclofen 10 No Baclofen MG MG 10 MG amLODIPine- amLODIPine- No amLODIPine Olmesartan Olmesartan -Olmesarta 5-20 MG 5-20 MG n 5-20 MG Baclofen Baclofen No Baclofen 0.05 MG/ML 0.05 MG/ML 0.05 MG/ML Citalopram Citalopram No Citalopram Hydrobromid Hydrobromid Hydrobromi e 20 MG e 20 MG de 20 MG PriLOSEC 40 PriLOSEC 40 No QD PriLOSEC MG MG 40 MG Atorvastati Atorvastati No 1{table QD Atorvastat n Calcium n Calcium t} in Calcium 20 MG 20 MG 20 MG amLODIPine- amLODIPine- No amLODIPine Olmesartan Olmesartan -Olmesarta 5-20 MG 5-20 MG n 5-20 MG Gabapentin Gabapentin No 1{capsu QD Gabapentin 300 MG 300 MG le} 300 MG Baclofen 10 Baclofen 10 No Baclofen MG MG 10 MG amLODIPine- amLODIPine- No amLODIPine Olmesartan Olmesartan -Olmesarta 5-20 MG 5-20 MG n 5-20 MG Baclofen Baclofen No Baclofen 0.05 MG/ML 0.05 MG/ML 0.05 MG/ML Citalopram Citalopram No Citalopram Hydrobromid Hydrobromid Hydrobromi e 20 MG e 20 MG de 20 MG PriLOSEC 40 PriLOSEC 40 No QD PriLOSEC MG MG 40 MG Atorvastati Atorvastati No 1{table QD Atorvastat n Calcium n Calcium t} in Calcium 20 MG 20 MG 20 MG amLODIPine- amLODIPine- No amLODIPine Olmesartan Olmesartan -Olmesarta 5-20 MG 5-20 MG n 5-20 MG Gabapentin Gabapentin No 1{capsu QD Gabapentin 300 MG 300 MG le} 300 MG Baclofen 10 Baclofen 10 No Baclofen MG MG 10 MG amLODIPine- amLODIPine- No amLODIPine Olmesartan Olmesartan -Olmesarta 5-20 MG 5-20 MG n 5-20 MG Baclofen Baclofen No Baclofen 0.05 MG/ML 0.05 MG/ML 0.05 MG/ML Citalopram Citalopram No Citalopram Hydrobromid Hydrobromid Hydrobromi e 20 MG e 20 MG de 20 MG PriLOSEC 40 PriLOSEC 40 No QD PriLOSEC MG MG 40 MG Atorvastati Atorvastati No 1{table QD Atorvastat n Calcium n Calcium t} in Calcium 20 MG 20 MG 20 MG amLODIPine- amLODIPine- No amLODIPine Olmesartan Olmesartan -Olmesarta 5-20 MG 5-20 MG n 5-20 MG Gabapentin Gabapentin No 1{capsu QD Gabapentin 300 MG 300 MG le} 300 MG Baclofen 10 Baclofen 10 No Baclofen MG MG 10 MG amLODIPine- amLODIPine- No amLODIPine Olmesartan Olmesartan -Olmesarta 5-20 MG 5-20 MG n 5-20 MG Baclofen Baclofen No Baclofen 0.05 MG/ML 0.05 MG/ML 0.05 MG/ML Citalopram Citalopram No Citalopram Hydrobromid Hydrobromid Hydrobromi e 20 MG e 20 MG de 20 MG PriLOSEC 40 PriLOSEC 40 No QD PriLOSEC MG MG 40 MG Atorvastati Atorvastati No 1{table QD Atorvastat n Calcium n Calcium t} in Calcium 20 MG 20 MG 20 MG amLODIPine- amLODIPine- No amLODIPine Olmesartan Olmesartan -Olmesarta 5-20 MG 5-20 MG n 5-20 MG Gabapentin Gabapentin No 1{capsu QD Gabapentin 300 MG 300 MG le} 300 MG Baclofen 10 Baclofen 10 No Baclofen MG MG 10 MG amLODIPine- amLODIPine- No amLODIPine Olmesartan Olmesartan -Olmesarta 5-20 MG 5-20 MG n 5-20 MG amLODIPine- amLODIPine- No amLODIPine Olmesartan Olmesartan -Olmesarta 5-20 MG 5-20 MG n 5-20 MG PriLOSEC 40 PriLOSEC 40 No QD PriLOSEC MG MG 40 MG Baclofen Baclofen No Baclofen 0.05 MG/ML 0.05 MG/ML 0.05 MG/ML Atorvastati Atorvastati No 1{table QD Atorvastat n Calcium n Calcium t} in Calcium 20 MG 20 MG 20 MG Baclofen 10 Baclofen 10 No Baclofen MG MG 10 MG Gabapentin Gabapentin No 1{capsu QD Gabapentin 300 MG 300 MG le} 300 MG Citalopram Citalopram No Citalopram Hydrobromid Hydrobromid Hydrobromi e 20 MG e 20 MG de 20 MG amLODIPine- amLODIPine- No amLODIPine Olmesartan Olmesartan -Olmesarta 5-20 MG 5-20 MG n 5-20 MG amLODIPine- amLODIPine- No amLODIPine Olmesartan Olmesartan -Olmesarta 5-20 MG 5-20 MG n 5-20 MG PriLOSEC 40 PriLOSEC 40 No QD PriLOSEC MG MG 40 MG Baclofen Baclofen No Baclofen 0.05 MG/ML 0.05 MG/ML 0.05 MG/ML Atorvastati Atorvastati No 1{table QD Atorvastat n Calcium n Calcium t} in Calcium 20 MG 20 MG 20 MG Baclofen 10 Baclofen 10 No Baclofen MG MG 10 MG Gabapentin Gabapentin No 1{capsu QD Gabapentin 300 MG 300 MG le} 300 MG Citalopram Citalopram No Citalopram Hydrobromid Hydrobromid Hydrobromi e 20 MG e 20 MG de 20 MG amLODIPine- amLODIPine- No amLODIPine Olmesartan Olmesartan -Olmesarta 5-20 MG 5-20 MG n 5-20 MG amLODIPine- amLODIPine- No amLODIPine Olmesartan Olmesartan -Olmesarta 5-20 MG 5-20 MG n 5-20 MG PriLOSEC 40 PriLOSEC 40 No QD PriLOSEC MG MG 40 MG Baclofen Baclofen No Baclofen 0.05 MG/ML 0.05 MG/ML 0.05 MG/ML Atorvastati Atorvastati No 1{table QD Atorvastat n Calcium n Calcium t} in Calcium 20 MG 20 MG 20 MG Baclofen 10 Baclofen 10 No Baclofen MG MG 10 MG Gabapentin Gabapentin No 1{capsu QD Gabapentin 300 MG 300 MG le} 300 MG Citalopram Citalopram No Citalopram Hydrobromid Hydrobromid Hydrobromi e 20 MG e 20 MG de 20 MG amLODIPine- amLODIPine- No amLODIPine Olmesartan Olmesartan -Olmesarta 5-20 MG 5-20 MG n 5-20 MG amLODIPine- amLODIPine- No amLODIPine Olmesartan Olmesartan -Olmesarta 5-20 MG 5-20 MG n 5-20 MG PriLOSEC 40 PriLOSEC 40 No QD PriLOSEC MG MG 40 MG Baclofen Baclofen No Baclofen 0.05 MG/ML 0.05 MG/ML 0.05 MG/ML Atorvastati Atorvastati No 1{table QD Atorvastat n Calcium n Calcium t} in Calcium 20 MG 20 MG 20 MG Baclofen 10 Baclofen 10 No Baclofen MG MG 10 MG Gabapentin Gabapentin No 1{capsu QD Gabapentin 300 MG 300 MG le} 300 MG Citalopram Citalopram No Citalopram Hydrobromid Hydrobromid Hydrobromi e 20 MG e 20 MG de 20 MG Citalopram Citalopram No Citalopram Hydrobromid Hydrobromid Hydrobromi e 20 MG e 20 MG de 20 MG amLODIPine- amLODIPine- No amLODIPine Olmesartan Olmesartan -Olmesarta 5-20 MG 5-20 MG n 5-20 MG Ambien 10 Ambien 10 No Ambien 10 MG MG MG Atorvastati Atorvastati No 1{table QD Atorvastat n Calcium n Calcium t} in Calcium 20 MG 20 MG 20 MG Citalopram Citalopram No Citalopram Hydrobromid Hydrobromid Hydrobromi e 20 MG e 20 MG de 20 MG Atorvastati Atorvastati No 1{table QD Atorvastat n Calcium n Calcium t} in Calcium 20 MG 20 MG 20 MG amLODIPine- amLODIPine- No amLODIPine Olmesartan Olmesartan -Olmesarta 5-20 MG 5-20 MG n 5-20 MG amLODIPine- amLODIPine- No amLODIPine Olmesartan Olmesartan -Olmesarta 5-20 MG 5-20 MG n 5-20 MG Citalopram Citalopram No Citalopram Hydrobromid Hydrobromid Hydrobromi e 20 MG e 20 MG de 20 MG Atorvastati Atorvastati No 1{table QD Atorvastat n Calcium n Calcium t} in Calcium 20 MG 20 MG 20 MG Citalopram Citalopram No Citalopram Hydrobromid Hydrobromid Hydrobromi e 20 MG e 20 MG de 20 MG amLODIPine- amLODIPine- No amLODIPine Olmesartan Olmesartan -Olmesarta 5-20 MG 5-20 MG n 5-20 MG Citalopram Citalopram No Citalopram Hydrobromid Hydrobromid Hydrobromi e 20 MG e 20 MG de 20 MG amLODIPine- amLODIPine- No amLODIPine Olmesartan Olmesartan -Olmesarta 5-20 MG 5-20 MG n 5-20 MG Gabapentin Gabapentin No Gabapentin Citalopram Citalopram No Citalopram Hydrobromid Hydrobromid Hydrobromi e 20 MG e 20 MG de 20 MG amLODIPine- amLODIPine- No amLODIPine Olmesartan Olmesartan -Olmesarta 5-20 MG 5-20 MG n 5-20 MG Citalopram Citalopram No Citalopram Hydrobromid Hydrobromid Hydrobromi e 20 MG e 20 MG de 20 MG Gabapentin Gabapentin No Gabapentin amLODIPine- amLODIPine- No amLODIPine Olmesartan Olmesartan -Olmesarta 5-20 MG 5-20 MG n 5-20 MG amLODIPine- amLODIPine- No amLODIPine Olmesartan Olmesartan -Olmesarta 5-20 MG 5-20 MG n 5-20 MG Citalopram Citalopram No Citalopram Hydrobromid Hydrobromid Hydrobromi e 20 MG e 20 MG de 20 MG Gabapentin Gabapentin No Gabapentin amLODIPine- amLODIPine- No amLODIPine Olmesartan Olmesartan -Olmesarta 5-20 MG 5-20 MG n 5-20 MG Citalopram Citalopram No Citalopram Hydrobromid Hydrobromid Hydrobromi e 20 MG e 20 MG de 20 MG Gabapentin Gabapentin No Gabapentin amLODIPine- amLODIPine- No amLODIPine Olmesartan Olmesartan -Olmesarta 5-20 MG 5-20 MG n 5-20 MG Citalopram Citalopram No Citalopram Hydrobromid Hydrobromid Hydrobromi e 20 MG e 20 MG de 20 MG Gabapentin Gabapentin No Gabapentin amLODIPine- amLODIPine- No amLODIPine Olmesartan Olmesartan -Olmesarta 5-20 MG 5-20 MG n 5-20 MG Citalopram Citalopram No Citalopram Hydrobromid Hydrobromid Hydrobromi e 20 MG e 20 MG de 20 MG Gabapentin Gabapentin No Gabapentin Citalopram Citalopram No Citalopram Hydrobromid Hydrobromid Hydrobromi e 20 MG e 20 MG de 20 MG amLODIPine- amLODIPine- No amLODIPine Olmesartan Olmesartan -Olmesarta 5-20 MG 5-20 MG n 5-20 MG prilosec prilosec No prilosec Gabapentin Gabapentin No Gabapentin Citalopram Citalopram No Citalopram Hydrobromid Hydrobromid Hydrobromi e 20 MG e 20 MG de 20 MG amLODIPine- amLODIPine- No amLODIPine Olmesartan Olmesartan -Olmesarta 5-20 MG 5-20 MG n 5-20 MG prilosec prilosec No prilosec Gabapentin Gabapentin No Gabapentin Ambien 10 Ambien 10 No Ambien 10 MG MG MG prilosec prilosec No prilosec lyrica lyrica No lyrica Citalopram Citalopram No Citalopram Hydrobromid Hydrobromid Hydrobromi e 20 MG e 20 MG de 20 MG Atorvastati Atorvastati No 1{table QD Atorvastat n Calcium n Calcium t} in Calcium 20 MG 20 MG 20 MG amLODIPine- amLODIPine- No amLODIPine Olmesartan Olmesartan -Olmesarta 5-20 MG 5-20 MG n 5-20 MG Gabapentin Gabapentin No Gabapentin Ambien 10 Ambien 10 No Ambien 10 MG MG MG prilosec prilosec No prilosec lyrica lyrica No lyrica Citalopram Citalopram No Citalopram Hydrobromid Hydrobromid Hydrobromi e 20 MG e 20 MG de 20 MG Atorvastati Atorvastati No 1{table QD Atorvastat n Calcium n Calcium t} in Calcium 20 MG 20 MG 20 MG amLODIPine- amLODIPine- No amLODIPine Olmesartan Olmesartan -Olmesarta 5-20 MG 5-20 MG n 5-20 MG Gabapentin Gabapentin No Gabapentin prilosec prilosec No prilosec lyrica lyrica No lyrica Citalopram Citalopram No Citalopram Hydrobromid Hydrobromid Hydrobromi e 20 MG e 20 MG de 20 MG amLODIPine- amLODIPine- No amLODIPine Olmesartan Olmesartan -Olmesarta 5-20 MG 5-20 MG n 5-20 MG Atorvastati Atorvastati No 1{table QD Atorvastat n Calcium n Calcium t} in Calcium 20 MG 20 MG 20 MG Ambien 10 Ambien 10 No Ambien 10 MG MG MG Gabapentin Gabapentin No Gabapentin Vital Signs Vital Name Observation Time Observation Value Comments Source Systolic blood 2022-08-18 20:45:00 131 mm[Hg] Univer [facility] Diastolic blood 2022-08-18 20:45:00 57 mm[Hg] Unive [facility] Heart rate 2022-08-18 20:45:00 83 /min [facility] Body temperature 2022-08-18 20:45:00 37.11 Mitra [facility] Respiratory rate 2022-08-18 20:45:00 16 /min [facility] Body height 2022-08-18 20:45:00 156.2 cm [facility] Body weight 2022-08-18 20:45:00 83.915 kg [facility] BMI 2022-08-18 20:45:00 34.39 kg/m2 [facility] Oxygen saturation in 2022-08-18 20:45:00 97 /min [facility] blood by [facility] Pulse oximetry Branch height 2021-12-21 14:40:00 61.50 [in_i] Common [facility] weight 2021-12-21 14:40:00 190.8 [lb_av] [facility] temperature 2021-12-21 14:40:00 97.8 [degF] [facility] bmi 2021-12-21 14:40:00 35.46 kg/m2 [facility] oximetry 2021-12-21 14:40:00 97 % Common [facility] respiratory rate 2021-12-21 14:40:00 18 /min Comm on [facility] blood pressure 2021-12-21 14:40:00 130 mm[Hg] Common [facility] - systolic [facility] blood pressure 2021-12-21 14:40:00 60 mm[Hg] [facility] - diastolic [facility] height 2021-11-05 10:30:00 61.50 [in_i] Common [facility] weight 2021-11-05 10:30:00 188.4 [lb_av] [facility] temperature 2021-11-05 10:30:00 98 [degF] Common [facility] bmi 2021-11-05 10:30:00 35.02 kg/m2 [facility] oximetry 2021-11-05 10:30:00 99 % Common [facility] respiratory rate 2021-11-05 10:30:00 18 /min Comm on [facility] blood pressure 2021-11-05 10:30:00 130 mm[Hg] Common [facility] - systolic [facility] blood pressure 2021-11-05 10:30:00 62 mm[Hg] [facility] - diastolic [facility] height 2021-09-20 13:00:00 61.50 [in_i] Common [facility] weight 2021-09-20 13:00:00 182 [lb_av] Common [facility] bmi 2021-09-20 13:00:00 33.83 kg/m2 [facility] blood pressure 2021-09-20 13:00:00 118 mm[Hg] Common [facility] - systolic [facility] blood pressure 2021-09-20 13:00:00 68 mm[Hg] [facility] - diastolic [facility] height 2021-08-14 13:20:00 61.50 [in_i] Common [facility] weight 2021-08-14 13:20:00 184 [lb_av] Common [facility] temperature 2021-08-14 13:20:00 97.3 [degF] Common [facility] bmi 2021-08-14 13:20:00 34.2 kg/m2 Common [facility] oximetry 2021-08-14 13:20:00 96 % Common [facility] respiratory rate 2021-08-14 13:20:00 20 /min Comm on [facility] blood pressure 2021-08-14 13:20:00 114 mm[Hg] Common [facility] - systolic [facility] blood pressure 2021-08-14 13:20:00 57 mm[Hg] Common [facility] - diastolic [facility] height 2021-07-30 13:00:00 61.50 [in_i] Common [facility] weight 2021-07-30 13:00:00 185.6 [lb_av] Common [facility] temperature 2021-07-30 13:00:00 97.2 [degF] Common [facility] bmi 2021-07-30 13:00:00 34.5 kg/m2 [facility] oximetry 2021-07-30 13:00:00 97 % Common [facility] respiratory rate 2021-07-30 13:00:00 16 /min Comm on [facility] blood pressure 2021-07-30 13:00:00 125 mm[Hg] Common [facility] - systolic [facility] blood pressure 2021-07-30 13:00:00 63 mm[Hg] Common [facility] - diastolic [facility] height 2021-06-28 10:30:00 61.50 [in_i] Common [facility] weight 2021-06-28 10:30:00 189 [lb_av] Common [facility] bmi 2021-06-28 10:30:00 35.13 kg/m2 Common [facility] blood pressure 2021-06-28 10:30:00 124 mm[Hg] [facility] - systolic [facility] blood pressure 2021-06-28 10:30:00 74 mm[Hg] Common [facility] - diastolic [facility] height 2021-05-01 13:20:00 61.50 [in_i] Common [facility] weight 2021-05-01 13:20:00 188.8 [lb_av] Common [facility] temperature 2021-05-01 13:20:00 96.4 [degF] Common [facility] bmi 2021-05-01 13:20:00 35.09 kg/m2 [facility] oximetry 2021-05-01 13:20:00 97 % [facility] respiratory rate 2021-05-01 13:20:00 16 /min Comm on [facility] blood pressure 2021-05-01 13:20:00 120 mm[Hg] Common [facility] - systolic [facility] blood pressure 2021-05-01 13:20:00 74 mm[Hg] Common [facility] - diastolic [facility] Body height 2019-06-10 12:54:[address] [facility] Body weight 2019-06-10 12:54:[address] [facility] BMI 2019-06-10 12:54:00 34.75 kg/m2 [facility] Body height 2019-06-10 12:54:[address] [facility] Body weight 2019-06-10 12:54:[address] [facility] BMI 2019-06-10 12:54:00 34.75 kg/m2 [facility] Body height 2019-05-13 16:13:[address] [facility] Body weight 2019-05-13 16:13:[address] [facility] BMI 2019-05-13 16:13:00 34.75 kg/m2 [facility] Body height 2019-05-11 19:33:00 157.5 cm [facility] Body weight 2019-05-11 19:33:00 86.183 kg [facility] BMI 2019-05-11 19:33:00 34.75 kg/m2 [facility] Systolic blood 2019-03-30 19:18:00 162 mm[Hg] Univer sity of [facility] Diastolic blood 2019-03-30 19:18:00 84 mm[Hg] Unive rsity of [facility] Heart rate 2019-03-30 19:18:00 76 /min [facility]i ty [facility] Body height 2019-03-30 19:12:00 157.5 cm Universi ty of [facility] Body weight 2019-03-30 19:12:00 86.183 kg Universi ty of [facility] BMI 2019-03-30 19:12:00 34.75 kg/m2 [facility] Systolic blood 2019-03-23 19:07:00 130 mm[Hg] Univer sity [facility] Diastolic blood 2019-03-23 19:07:00 75 mm[Hg] Unive rsity of pressure [facility] Body height 2019-03-23 19:07:00 157.5 cm [facility] Body weight 2019-03-23 19:07:00 86.183 kg Universi ty of [facility] BMI 2019-03-23 19:07:00 34.75 kg/m2 [facility] Systolic blood 2018-11-27 15:19:00 116 mm[Hg] Univer [facility] Diastolic blood 2018-11-27 15:19:00 67 mm[Hg] Unive rsity of [facility] Body height 2018-11-27 15:19:00 157.5 cm [facility] Body weight 2018-11-27 15:19:00 86.183 kg [facility] BMI 2018-11-27 15:19:00 34.75 kg/m2 [facility] Systolic blood 2018-11-26 19:18:00 108 mm[Hg] [facility] Diastolic blood 2018-11-26 19:18:00 68 mm[Hg] Unive rsity of pressure [facility] Body height 2018-11-26 19:18:00 157.5 cm [facility]i [facility] Body weight 2018-11-26 19:18:[address] [facility] BMI 2018-11-26 19:18:00 34.75 kg/m2 [facility] Systolic blood 2018-11-20 01:12:00 150 mm[Hg] Univer [facility] Diastolic blood 2018-11-20 01:12:00 86 mm[Hg] Unive [facility] Heart rate 2018-11-20 01:12:00 86 /min [facility] Body temperature 2018-11-20 01:12:00 36.83 [facility] 2018-11-20 01:12:00 18 /min [facility] Body height 2018-11-20 01:12:[address] [facility] Body weight 2018-11-20 01:12:00 86.183 kg Universi [facility] BMI 2018-11-20 01:12:00 34.75 kg/m2 [facility] Oxygen saturation in 2018-11-20 01:12:00 98 /min [facility] Arterial blood by [facility] Pulse oximetry Branch BMI Calculated 2017-03-12 22:05:00 [facility] Weight 2017-03-12 22:05:00 [facility] Height 2017-03-12 22:05:00 [facility]75 [facility] Oral (F) 2017-03-12 22:05:00 97.8 F [facility] Heart Rate 2017-03-12 22:05:00 [facility] Systolic (mm Hg) 2017-03-12 22:05:00 Richy marti [facility] Diastolic (mm Hg) 2017-03-12 22:05:00 [facility] Procedures Procedure Date / Time Performing Clinician Source Performed ASSIGNMENT OF BENEFITS 2022-08-18 20:37:56 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, No [facility] XR CHEST 1 VW 2019-05-19 16:40:22 Elena Espino [facility] ASSIGNMENT OF BENEFITS 2019-05-19 15:54:41 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, No [facility] Name Medical Branch MR KNEE LEFT WO 2019-05-11 20:16:34 Elena Espino [facility] CONTRAST [facility] UNILATERAL VENOUS 2018-11-26 21:45:02 Chau Solano [facility] DUPLEX LOWER EXTREMITY [facility] [place] [facility] BY VASCULAR LAB NOTICE OF PRIVACY 2018-11-26 20:46:54 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, No [facility] CONSENT/REFUSAL FOR 2018-11-26 20:46:39 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, No [facility] [place] [facility] Name Medical Branch ASSIGNMENT OF BENEFITS 2018-11-26 20:46:20 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, No [facility] D-DIMER 2018-11-20 01:33:00 Louie Jerez [facility] NOTICE OF PRIVACY 2018-11-20 01:09:41 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, No [facility] Medical Branch CONSENT/REFUSAL FOR 2018-11-20 01:05:31 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, No [facility] DIAGNOSIS AND TREATMENT Name Medical [place] [facility] Encounters Start End Encounter Admission Attending Care Care Encounter Source Date/Time Date/Time Type Type Clinicians Facility Department ID 2022-08-08 Outpatient [facility] [id number] Common 14:47:00 [id number] [facility] 2022-05-17 Outpatient Destiny, STLMLC [facility] [id number] Common 11:41:01 Ashwini 79907 [facility] 2022-04-15 Outpatient PEREZ, Na STLMLC STLC [id number] 2 Common 10:24:01 [id number] [facility] 2021-12-26 Outpatient Perez, Na STLC STLC [id number] 2 Common 08:19:01 [facility] 2021-12-14 Outpatient Perez, Na STLC STLC [id number] 2 Common 08:58:01 [facility] 2021-08-07 Outpatient Perez, Na STLMLC STLMLC [id number] 2 Common 10:29:01 [facility] 2021-07-26 Outpatient Perez, Na STLMLC STLMLC [id number] 2 Common 08:45:01 [facility] 2021-06-27 Outpatient Perez, Na STLMLC STLMLC [id number] 2 Common 14:40:02 [facility] 2021-04-04 Outpatient Perez, Na STLMLC STLMLC [id number] 2 Common 13:35:08 [facility] 2021-04-04 Outpatient Perez, Na STLMLC STLMLC [id number] 2 Common 13:13:45 [id number] [facility] 2021-04-04 Outpatient Perez, Na STLMLC STLMLC [id number] 2 Common 13:04:57 [id number] [facility] 2021-04-04 Outpatient Perez, Na STLMLC STLMLC [id number] 2 Common 13:00:30 [id number] [facility] 2021-04-04 Outpatient Perez, Na STLMLC STLMLC [id number] 2 Common 12:59:52 [id number] [facility] 2021-04-04 Outpatient Perez, Na STLMLC STLMLC [id number] 2 Common 12:51:20 [id number] [facility] 2021-04-04 Outpatient Perez, Na STLMLC STLMLC [id number] 2 Common 12:02:27 [id number] [facility] 2021-04-04 Outpatient Perez, Na STLMLC STLMLC [id number] 2 Common 12:01:03 [id number] [facility] 2021-04-04 Outpatient Perez, Na STLMLC STLMLC [id number] 2 Common 11:33:49 [id number] [facility] 2021-04-04 Outpatient Perez, Na STLMLC STLMLC [id number] 2 Common 11:33:44 [id number] [facility] 2021-04-04 Outpatient Perez, Na STLMLC STLMLC [id number] 2 Common 11:17:12 [id number] [facility] 2022-08-18 2022-08-18 Outpatient R GI [facility] [id number] Univers 15:40:00 16:08:36 RANIA ity of [facility] 2022-08-18 2022-08-18 Urgent Brynn Brooks [facility] 1.2.840.114 [id number] Univers 15:40:00 16:08:36 Care Unknown, Attending HEALTH 350.1.13.10 ity of [place] 4.2.7.2.686 Chance as JOSE M?BLEA [phone] [address] MEDICAL OFFICE BUILDING 2022-08-18 2022-08-18 Orders Doctor DOLLY 1.2.840.114 [id number] Univers 00:00:00 00:00:00 Only Unassigned, JAYDEN 350.1.13.10 ity of [place] [facility] 4.2.7.2.686 Chance as [id number] [address] 2022-02-04 2022-02-04 (TEL) STLMLC STLMLC [id number] Co mmon 00:00:00 00:00:00 [facility] 2022-01-03 2022-01-03 (WEB) STLMLC STLMLC [id number] Co mmon 00:00:00 00:00:00 [facility] 2022-01-02 2022-01-02 (TEL) STLMLC STLMLC [id number] Co mmon 00:00:00 00:00:00 [facility] 2022-01-01 2022-01-01 (WEB) STLMLC STLMLC [id number] Co mmon 00:00:00 00:00:00 [facility] 2021-12-26 2021-12-26 (WEB) STLMLC STLMLC [id number] Co mmon 00:00:00 00:00:00 [facility] 2021-12-21 2021-12-21 OFFICE STLMLC STLMLC [id number] Co mmon 00:00:00 00:00:00 VISIT EST Spir it PT LEVEL 3 - [facility] 2021-11-15 2021-11-15 (WEB) STLMLC STLMLC [id number] Co mmon 00:00:00 00:00:00 [facility] 2021-11-05 2021-11-05 OFFICE STLMLC STLMLC [id number] Co mmon 00:00:00 00:00:00 VISIT NEW Spir it PT LEVEL 2 - [facility] 2021-10-17 2021-10-17 (TEL) STLMLC STLMLC [id number] Co mmon 00:00:00 00:00:00 [facility] 2021-10-02 2021-10-02 (WEB) STLMLC STLMLC [id number] Co mmon 00:00:00 00:00:00 [facility] 2021-09-28 2021-09-28 (WEB) STLMLC STLMLC [id number] Co mmon 00:00:00 00:00:00 [facility] 2021-09-26 2021-09-26 (TEL) STLMLC STLMLC [id number] Co mmon 00:00:00 00:00:00 [facility] 2021-09-24 2021-09-24 (TEL) STLMLC STLMLC [id number] Co mmon 00:00:00 00:00:00 [facility] 2021-09-20 2021-09-20 OFFICE STLMLC STLMLC [id number] Co mmon 00:00:00 00:00:00 VISIT EST Spir it PT LEVEL 3 - [facility] 2021-09-05 2021-09-05 (TEL) STLMLC STLMLC [id number] Co mmon 00:00:00 00:00:00 [facility] 2021-09-02 2021-09-02 (WEB) STLMLC STLMLC [id number] Co mmon 00:00:00 00:00:00 [facility] 2021-09-02 2021-09-02 (TEL) STLMLC STLMLC [id number] Co mmon 00:00:00 00:00:00 [facility] 2021-08-15 2021-08-15 (TEL) STLMLC STLMLC [id number] Co mmon 00:00:00 00:00:00 [facility] 2021-08-14 2021-08-14 OFFICE STLMLC STLMLC [id number] Co mmon 00:00:00 00:00:00 VISIT EST Spir it PT LEVEL 3 [facility] 2021-08-03 2021-08-03 (TEL) STLMLC STLMLC [id number] Co mmon 00:00:00 00:00:00 [facility] 2021-08-02 2021-08-02 (WEB) STLMLC STLMLC [id number] Co mmon 00:00:00 00:00:00 [facility] 2021-07-30 2021-07-30 OFFICE STLMLC STLMLC [id number] Co mmon 00:00:00 00:00:00 VISIT [facility] PT - [facility] LEVEL 4 [facility] 2021-07-24 2021-07-24 (TEL) STLMLC STLMLC [id number] Co mmon 00:00:00 00:00:00 [facility] 2021-07-19 2021-07-19 (TEL) STLMLC STLMLC [id number] Co mmon 00:00:00 00:00:00 [facility] 2021-07-17 2021-07-17 (TEL) STLMLC STLMLC [id number] Co mmon 00:00:00 00:00:00 [facility] 2021-07-13 2021-07-13 (TEL) STLMLC STLMLC [id number] Co mmon 00:00:00 00:00:00 [facility] 2021-06-29 2021-06-29 (WEB) STLMLC STLMLC [id number] Co mmon 00:00:00 00:00:00 [facility] 2021-06-28 2021-06-28 OFFICE STLMLC STLMLC [id number] Co mmon 00:00:00 00:00:00 VISIT NEW Spir it PT LEVEL 3 - [facility] 2021-06-02 2021-06-02 (WEB) STLMLC STLMLC [id number] Co mmon 00:00:00 00:00:00 [facility] 2021-05-01 2021-05-01 OFFICE STLMLC STLMLC [id number] Co mmon 00:00:00 00:00:00 VISIT [facility] PT - [facility] LEVEL 4 [facility] 2021-04-03 2021-04-03 (WEB) STLMLC STLMLC [id number] Co mmon 00:00:00 00:00:00 [facility] 2021-03-22 2021-03-22 (TEL) STLMLC STLMLC [id number] Co mmon 00:00:00 00:00:00 [facility] 2021-03-22 2021-03-22 (TEL) STLMLC STLMLC [id number] Co mmon 00:00:00 00:00:00 [facility] 2021-02-08 2021-02-08 (TEL) STLMLC STLMLC [id number] Co mmon 00:00:00 00:00:00 [facility] 2021-01-31 2021-01-31 (TEL) STLMLC STLMLC [id number] Co mmon 00:00:00 00:00:00 [facility] 2021-01-31 2021-01-31 OL DIG E/M STLMLC STLMLC [id number] Common 00:00:00 00:00:00 C 11-20 Spir it MIN [facility] 2020-11-24 2020-11-24 (TEL) STLMLC STLMLC [id number] Co mmon 00:00:00 00:00:00 [facility] 2020-11-16 2020-11-16 (TEL) STLMLC STLMLC [id number] Co mmon 00:00:00 00:00:00 [facility] 2020-10-13 2020-10-13 Outpatient STLMLC STLMLC [id number] Common 00:00:00 00:00:00 [facility] 2020-10-09 2020-10-09 Outpatient STLMLC STLMLC [id number] Common 00:00:00 00:00:00 [facility] 2020-08-18 2020-08-18 Outpatient STLMLC STLMLC [id number] Common 00:00:00 00:00:00 [facility] 2020-08-17 2020-08-17 Outpatient STLMLC STLMLC [id number] Common 00:00:00 00:00:00 [facility] 2020-08-14 2020-08-14 Outpatient STLMLC STLMLC [id number] Common 00:00:00 00:00:00 [facility] 2020-07-26 2020-07-26 Outpatient STLMLC STLMLC [id number] Common 00:00:00 00:00:00 [facility] 2020-07-26 2020-07-26 Outpatient STLMLC STLMLC [id number] Common 00:00:00 00:00:00 [facility] 2020-07-13 2020-07-13 Outpatient STLMLC STLMLC [id number] Common 00:00:00 00:00:00 [facility] 2020-06-22 2020-06-22 Outpatient STLMLC STLMLC [id number] Common 00:00:00 00:00:00 [facility] 2020-03-15 2020-03-15 Outpatient STLMLC STLMLC [id number] Common 00:00:00 00:00:00 [facility] 2020-01-14 2020-01-14 Outpatient STLMLC STLMLC [id number] Common 00:00:00 00:00:00 [facility] 2019-11-30 2019-11-30 Outpatient STLMLC STLMLC [id number] Common 00:00:00 00:00:00 [facility] 2019-11-16 2019-11-16 [facility] [id number] Common 15:00:00 15:00:[address] [facility] 2019-11-05 2019-11-05 [facility] [id number] Common 09:21:00 09:21:00 [address] [facility] 2019-10-29 2019-10-29 [facility] [id number] Common 11:34:00 11:34:00 [address] [facility] 2019-10-29 2019-10-29 [facility] [id number] Common 10:00:00 10:00:00 [address] [facility] 2019-10-28 2019-10-28 [facility] [id number] Common 14:09:00 14:09:00 [address] [facility] 2019-10-11 2019-10-11 [facility] [id number] Common 15:20:00 15:20:00 [address] [facility] 2019-10-07 2019-10-07 [facility] [id number] Common 10:56:00 10:56:[address] [facility] [address] [facility] 2019-10-07 2019-10-07 [facility] [id number] Common 10:00:00 10:00:00 [address] [facility] 2019-10-06 2019-10-06 [facility] [id number] Common 15:33:00 15:33:00 [address] [facility] 2019-10-06 2019-10-06 [facility] [id number] Common 13:46:00 13:46:00 [address] [facility] 2019-09-30 2019-09-30 [facility] [id number] Common 10:09:00 10:09:00 [address] [facility] 2019-08-29 2019-08-29 [facility] [id number] Common 03:04:00 03:04:00 [address] [facility] 2019-08-26 2019-08-26 [facility] [id number] Common 02:31:00 02:31:00 [address] [facility] 2019-08-16 2019-08-16 [facility] [id number] Common 08:05:00 08:05:00 [address] [facility] 2019-08-13 2019-08-13 [facility] [id number] Common 13:00:00 13:00:00 [address] [facility] 2019-08-13 2019-08-13 [facility] [id number] Common 13:00:00 13:00:00 t [address] [facility] 2019-06-10 2019-06-10 [facility] [id number] 07:53:05 08:11:21 Visit Elena [facility] 350.1.13.10 Surgical 4.2.7.2.686 Specialti [id number] es [address] 2019-06-10 2019-06-10 Office [facility] [id number] [facility] 07:53:05 08:11:21 Visit Elena [facility] 350.1.13.10 it y of Surgical 4.2.7.2.686 Chance as Specialti [id number] Me dical es [address] [place] 2019-06-10 2019-06-10 Outpatient R SRINIVAS [facility] [id number] Univers 08:00:00 08:00:[address] [facility] 2019-06-10 2019-06-10 Telephone Srinivas [facility] 1.2.840.114 [id number] 00:00:00 00:00:00 Elena L Health 350.1.13.10 Surgical 4.2.7.2.686 Specialti [id number] es [address] 2019-06-10 2019-06-10 Telephone [facility] 1.2.840.114 [id number] Univers 00:00:00 00:00:00 Elena Hernández 350.1.13.10 it y of Surgical 4.2.7.2.686 Chance as Specialti [id number] Nj dical es 198 [facility] 2019-06-09 2019-06-09 Outpatient Marshal SOLANO [facility] [id number] Univers 13:15:00 13:15:[address] [facility] 2019-06-07 2019-06-07 Outpatient [facility] [id number] Univers 13:30:00 13:30:00 [facility]-06-04 2019-06-04 Outpatient Marshal [facility] [id number] Univers 09:00:00 09:00:00 [facility] 2019-06-03 2019-06-03 Outpatient Marshal [facility] [id number] Univers 09:15:00 09:15:00 [facility] 2019-05-26 2019-05-26 [facility] 1.2.840.114 [id number] Univers 11:59:34 23:59:00 Encounter Elena BORJAS 350.1.13.10 [place] [id number] [address] 2019-05-26 2019-05-26 Outpatient R [facility] NUT [id number] Univers 00:00:00 00:00:[address] [facility] 2019-05-26 2019-05-26 Telephone [facility] [id number] Univers 00:00:00 00:00:00 Chau Hernández 350.1.13.10 it y of Surgical 4.2.7.2.686 Chance as Specialti [id number] Me dical es 198 [facility] 2019-05-19 2019-05-19 Loan Interviewer Mortgage Chasity, Adc Lab Main [facility] 1.2.8 [id number] Univers 11:06:52 11:21:52 Visit Elena Espino 350.1.13.10 ity of [place] [facility] [id number] Nj dical nal 353 [facility] 2019-05-19 2019-05-19 [facility] [id number] [facility] 11:07:51 11:14:[address] [facility] 2019-05-19 2019-05-19 Hospital [facility] 1.2.840.114 [id number] Univers 11:00:00 11:14:00 Encounter Elena Garcia 350.1.13.10 ity of [place].2.[place] [id number] [facility] [address] [place] 2019-05-19 2019-05-19 Orders Doctor DOLLY 1.2.840.114 [id number] Univers 00:00:00 00:00:00 Only Unassigned, JAYDEN 350.1.13.10 ity of [place] [facility] 4.2.7.2.[id number] [facility] [address] 2019-05-17 2019-05-17 Telephone [facility] 1.2.840.114 [id number] Univers 00:00:00 00:00:00 Elena Hrenández 350.1.13.10 it y of Surgical 4.2.7.2.686 Chance as Specialti [id number] Nj dical es 198 [facility] 2019-05-13 2019-05-13 Office [facility] [id number] Univers 10:05:58 14:22:17 Visit Elena Hernández 350.1.13.10 it y of Surgical 4.2.7.2.686 Chance as Specialti [id number] Nj dical es 198 [facility] 2019-05-13 2019-05-13 Outpatient [facility] [id number] Univers 10:30:00 10:30:[address] [facility] 2019-05-11 2019-05-11 Outpatient [facility] [id number] Univers 11:50:30 23:59:00 ELENA ity of [facility] 2019-05-11 2019-05-11 Hospital Srinivas [facility] 1.2.840.114 [id number] Univers 11:50:00 23:59:00 Encounter Elena Garcia 350.1.13.10 ity of [place] 4.2.7.2.686 [facility] [id number] [facility] [address] 2019-04-27 2019-04-27 Telephone [facility] [id number] Univers 00:00:00 00:00:00 Chau S Health 350.1.13.10 it y of Surgical 4.2.7.2.686 Chance as Specialti [id number] Me dical es 198 [facility] 2019-03-30 2019-03-30 Office [facility] 1.2.840.114 [id number] Univers 13:10:27 13:25:27 Visit Chau S Health 350.1.13.10 it y of Surgical 4.2.7.2.686 Chance as Specialti [id number] Me dical es 198 [facility] 2019-03-23 2019-03-23 Office [facility] 1.2.840.114 [id number] Univers 13:05:56 13:27:49 Visit Chau S Health 350.1.13.10 it y of Surgical 4.2.7.2.686 Chance as Specialti [id number] Me dical es 198 [facility] 2018-11-27 2018-11-27 Office [facility] 1.2.840.114 [id number] Univers 10:18:07 10:41:45 Visit COADE 350.1.13.10 it y of Surgical 4.2.7.2.686 Chance as Specialti [id number] Me dical es 198 [facility] 2018-11-26 2018-11-26 [facility] Elena Espino [facility] 1.2.840 .114 [id number] Univers 15:54:44 23:59:00 Encounter Tech, Adc Cardio Vascular [place] 3 50.1.13.10 ity of [place] 4.2.7.2.686 [facility] [id number] [facility] [address] 2018-11-26 2018-11-26 Hospital [facility] 1.2.840.114 [id number] Univers 14:40:06 15:53:00 Encounter Chau [facility] 350.1.13.10 ity of Surgical 4.2.7.2.686 Chance as Specialti [id number] Me dical es 809 [facility] 2018-11-26 2018-11-26 Office [facility] 1.2.840.114 [id number] Univers 14:04:15 15:34:29 Visit Hcau [facility] 350.1.13.10 it y of Surgical 4.2.7.2.686 Chance as Specialti [id number] Nj dical es 198 [facility] 2018-11-19 2018-11-19 Emergency [facility] [id number] [id number] Univers 20:24:29 21:34:00 Louie Gay [place] 350.1.13.10 i ty of [place].2.[place] [id number] [facility] [address] [place] 2017-03-12 2017-03-13 Outpatient nullFlavo [facility] [id number] Memoria 13:45:00 05:59:59 r Clinic [facility] [address] [facility] 2017-03-12 2017-03-13 Outpatient nullFlavo [facility] [id number] Memoria 13:45:00 05:59:59 r Clinic [facility] [address] [facility] 2017-03-11 2017-03-13 Phone nullFlavo [facility] [id number] Memoria 15:25:00 05:59:59 Message r Clinic [facility] [address] [facility] 2017-03-11 2017-03-13 Phone nullFlavo [facility] [id number] Memoria 15:25:00 05:59:59 Message r Clinic [facility] [address] [facility] 2017-03-12 2017-03-12 Outpatient Morris Bergman MHMISCHER MHMISCHER [id number] 07:45:00 23:59:59 Hwan 00 2017-03-11 2017-03-12 Outpatient MHMISCHER MHMISCHER [id number] 09:25:00 23:59:59 04 2017-03-12 2017-03-12 Outpatient MHIE MHIE [id number] 065 [facility] 07:45:00 07:45:00 00 l [place] Results Test Test Test Results Result Source Description Time Comments Comments XR CHEST 1 VW 2019-05- 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 Branch TECHNIQUE: MR imaging of the left knee was done in multiple projectionsusing 1.5T MR unit and standard protocol. FINDINGS: BONE AND JOINT: Trace amount of joint fluid fluid noted and there is a verysmall subcentimeter sized Sloano's cyst. Hypoplastic medial patellar andtrochlear facets noted. [...] into the body portion. CHEST 2 VIEWS 2018-12- [address] 4600 10:09:00 [place] [address] Patient Name: BLANKA KURTZ MR #: [id number] : 1945 Age/Sex: 73/F Req #: [id number] Adm Physician: Ordered by: SILVIA CM MD Report #: [id number] Location: OR Room/Bed: ___ Procedure: [id number] DX/CHEST 2 VIEWS Exam Date: 12/08/18 Exam Time: 0950 REPORT STATUS: Signed TECHNIQUE: Frontal and lateral views of the chest. INDICATION: PRE-OP [facility] [id number]. COMPARISON: None. FINDINGS: LINES/TUBES: None. LUNGS: There [...] code = See_Comment [Autom ated message] The [id number]) system which ge nerated this result tra [...] diagnosis. Lab Interpretation Normal (test code = 44508-2) [facility] ([facility]Abdomen 1 View (KUB)
[2022-08-28] MEDS ORDERED: MECLIZINE HCL 12.5 MG TAB ONE (17:50)
[2022-08-28 18:06] LABS: Absolute Lymphocytes (CBC) 1.5 K/uL (0.7-4.9); Lymphocytes % 21.9 % (15.3-44.8); MCV 82.8 fL (80-100); MPV 8.1 fL (7.6-11.3); RBC Red Blood Cell Count 3.99 M/uL (3.86-4.86)
--- NOTE | 2022-08-28 18:13 | RAD REPORT ---
EXAM DESCRIPTION: CT - Head Brain Wo Cont - 08/28/2022 5:54 pm CLINICAL HISTORY: vertigo COMPARISON: Facial Bones W Con Mpr dated 06/09/2020; HEAD BRAIN W O CONTRAST dated 09/15/2014 TECHNIQUE: Noncontrast head CT images were obtained without IV contrast. Multiplanar reformats were generated and reviewed. All CT scans are performed using dose optimization technique as appropriate and may include automated exposure control or mA/KV adjustment according to patient size. FINDINGS: No intracranial hemorrhage, mass, or edema. Midline structures are unremarkable. Normal ventricular caliber for age. Guan-white matter differentiation is preserved, without evidence of acute infarct. No abnormal extra- axial fluid collections. Mastoid air cells and visualized portions of the paranasal sinuses are clear. No acute bony findings. IMPRESSION: No evidence of an acute intracranial process. If there is concern for acute ischemia, additional evaluation by brain MRI may be helpful.
[2022-08-28 18:23] LABS: Albumin 3.7 g/dL (3.4-5.0); Bilirubin Total 0.3 mg/dL (0.2-1.0); Protein, Total 7.2 g/dL (6.4-8.2); Troponin High Sensitivity 3.8 pg/mL (<58.9)
[2022-08-28] MEDS ORDERED: DIAZEPAM 10 MG/2 ML INJ SYRINGE ONE (19:03)
--- NOTE | 2022-08-28 20:20 | RAD REPORT ---
EXAM DESCRIPTION: CT - Head angio - 08/28/2022 7:54 pm CLINICAL HISTORY: vertigo COMPARISON: Head Brain Wo Cont dated 08/28/2022; Facial Bones W Con Mpr dated 06/09/2020 TECHNIQUE: Axial CT angiography images of the head was performed with multiplanar and maximum intens ity projection reconstructions. Images performed following intravenous administration of 100mL Isovue 370. All CT scans are performed using dose optimization technique as appropriate and may include automated exposure control or mA/KV adjustment according to patient size. FINDINGS: No evidence of large vessel occlusion. No evidence of aneurysm or dissection flap is detec rafal. No flow-limiting stenosis or vascular malformation identified. Antegrade flow is seen in the vertebral arteries. The vertebral arteries are codominant. The visualized dural venous sinuses are grossly patent. IMPRESSION: No evidence of large vessel occlusion or flow-limiting stenosis.
--- NOTE | 2022-08-28 20:39 | RAD REPORT ---
EXAM DESCRIPTION: CT - Neck Angio - 08/28/2022 7:54 pm CLINICAL HISTORY: vertigo COMPARISON: Soft Tissue Neck W/Contr dated 08/08/2021; Soft Tissue Neck W/Contr dated 11/05/2018; Soft Tissue Neck W/Contr dated 09/30/2018; CT HEAD CSPINE MPR WO CONTRAST dated 12/22/2013; Head angio date d 08/28/2022 TECHNIQUE: Axial CT angiography images of the head was performed with multiplanar and maximum intens ity projection reconstructions. Images performed following intravenous administration of 100mL Isovue 370. All CT scans are performed using dose optimization technique as appropriate and may include automated exposure control or mA/KV adjustment according to patient size. Quantification of carotid stenosis, if any, is performed according to NASCET criteria. FINDINGS: A left aortic arch is identified with normal three vessel configuration of the great vesse ls. Moderate stenosis along the right proximal ICA, with narrowest luminal diameter measuring 1.[address] compared to 5.6 millimeter more distally, amounting to 68% stenosis by NASCET criteria. Short-seg ment plaque ulceration, with contrast filling within the plaque lumen, directed posteriorly and later ally at that level. Mild stenosis of the proximal left ICA, with narrowest luminal diameter measuring 3.1 millimeter compared to 5.2 millimeter more distally, amounting to 41% stenosis by NASCET criteri a. No significant stenosis is identified involving the cervical segments of both internal carotid arteri es. Normal flow is seen within both vertebral arteries. Mild ground-glass opacities along the upper lungs, nonspecific. IMPRESSION: Moderate stenosis of the proximal right ICA, measuring up to 68% stenosis, with short-se gment plaque ulceration at that level. Less than 50% stenosis of the proximal left ICA. Vertebral arteries are patent. CAROTID STENOSIS REFERENCE USING NASCET CRITERIA: % ICA stenosis = (1 - narrowest ICA diameter/diameter of distal cervical ICA) x 100. Mild - <50% stenosis. Moderate - 50-69% stenosis. Severe - 70-94% stenosis. Near occlusion - 95-99% stenosis. Occluded - 100% stenosis.
--- NOTE | 2022-08-28 20:53 | ER ---
Nurse's Notes [facility] Name: Blanka Parker Age: 77 yrs Sex: Female : 1945 Arrival Date: 08/28/2022 Time: 16:52 Bed 8 Private MD: Diagnosis: vertigo Presentation: 08/28 17:24 Chief complaint: Patient states: Dizziness, headache, generalized weakness, 1 episode ph of diarrhea and near syncope when standing . Symptoms started today, denies chest pain. Coronavirus screen: Vaccine status: Patient reports being unvaccinated. Ebola Screen: No symptoms or risks identified at this time. Initial Sepsis Screen: Does the patient meet any 2 criteria? No. Patient's initial sepsis screen is negative. Does the patient have a suspected source of infection? No. Patient's initial sepsis screen is negative. Risk Assessment: Do you want to hurt yourself or someone else? Patient reports no desire to harm self or others. Onset of symptoms. 17:24 Method Of Arrival: Wheelchair ph 17:24 Acuity: PETEY 3 ph Triage Assessment: 17:30 Headache History: The patient has had previous headaches and this one is similar to bp previous episodes. General: Appears in no apparent distress. Behavior is calm, cooperative, appropriate for age. Pain: Pain currently is 5 out of 10 on a pain scale. Pain began 4 hours ago. Also complains of no other associated symptoms. EENT: No deficits noted. Neuro: Reports dizziness, headache. Cardiovascular: No deficits noted. Respiratory: No deficits noted. GI: No signs and/or symptoms were reported involving the gastrointestinal system. : No deficits noted. Derm: No deficits noted. Musculoskeletal: No deficits noted. Historical: - Allergies: 17:27 Codeine; ph 17:27 COLLAGENASE; ph 17:27 Demerol; ph 17:27 hydromorphone; ph 17:27 Latex, Natural Rubber; ph 17:27 Lidocaine; ph 17:27 PENICILLINS; ph 17:27 Sulfa (Sulfonamide Antibiotics); ph 17:27 venlafaxine; ph 17:27 Zanaflex; ph - PMHx: 17:27 degenerative joint disease; Diverticulitis; GERD; High Cholesterol; Hypertension; ph - PSHx: 17:27 Appendectomy; back; bladder sling; Cholecystectomy; hysterectomy; neck fusion X 2; ph - Immunization history:: Adult Immunizations unknown. - Social history:: Smoking status: Patient denies any tobacco usage or history of. - Family history:: not pertinent. Screenin:00 [facility] ED Fall Risk Assessment (Adult) History of falling in the last 3 months, ld1 including since admission No falls in past 3 months (0 pts). Abuse screen: Denies threats or abuse. Denies injuries from another. Nutritional screening: No deficits noted. Tuberculosis screening: No symptoms or risk factors identified. Assessment: 18:00 General: Appears in no apparent distress. comfortable, Behavior is calm, cooperative, ld1 appropriate for age. Pain: Denies pain. Neuro: Level of Consciousness is awake, alert, obeys commands, Oriented to person, place, time, situation. Neuro: Reports dizziness, headache. Cardiovascular: Capillary refill < 3 seconds Patient's skin is warm and dry. Rhythm is sinus rhythm. Respiratory: Airway is patent Respiratory effort is even, unlabored. GI: Abdomen is round non-distended. : No signs and/or symptoms were reported regarding the genitourinary system. EENT: No signs and/or symptoms were reported regarding the EENT system. Derm: No signs and/or symptoms reported regarding the dermatologic system. Musculoskeletal: No signs and/or symptoms reported regarding the musculoskeletal system. 19:26 Reassessment: PT SITTING UP IN BED. C/O NECK PAIN 09/16. PT GIVEN A PILLOW AND jj7 READJUSTED IN BED FOR COMFORT. PT STATES THAT HELPED WITH NECK PAIN. STATES SHE IS STILL DIZZY. VS STABLE, FAMILY AT BEDSIDE. Vital Signs: 17:24 BP 120 / 66; Pulse 71; Resp 18; Temp 97.8; Pulse Ox 97% on R/A; Weight 83.91 kg; Height ph 5 ft. 1 in. ; 18:00 BP 137 / 63; Pulse 65; Resp 18; Pulse Ox 98% on R/A; ld1 19:15 BP 154 / 73; Pulse 70; Resp 17; Pulse Ox 98% ; jj7 20:15 BP 117 / 51; Pulse 72; Resp 19; Pulse Ox 100% ; jj7 21:20 BP 117 / 57; Pulse 71; Resp 17; Pulse Ox 100% ; jj7 22:06 BP 123 / 61; Pulse 91; Resp 17; Pulse Ox 100% ; jj7 17:24 Body Mass Index 34.96 (83.91 kg, 154.94 cm) ph ED Course: 16:55 Patient arrived in ED. kj1 17:13 Doug Schneider MD is Attending Physician. rt 17:27 Triage completed. ph 17:28 Arm band placed on. ph 17:55 CT Head Brain wo Cont In Process Unspecified. EDMS 17:58 Arash Pacheco, RN is Primary Nurse. bp 17:59 Inserted saline lock: 22 gauge in right forearm, using aseptic technique. Blood bp collected. 18:00 Patient has correct armband on for positive identification. Placed in gown. Bed in low ld1 position. Call light in reach. Side rails up X2. case monitor on. Pulse ox on. NIBP on. Door closed. Noise minimized. Warm blanket given. 18:00 No provider procedures requiring assistance completed. ld1 19:56 CT Head Angio In Process Unspecified. EDMS 19:56 CT Neck Angio In Process Unspecified. EDMS 21:04 William Spencer MD is Hospitalizing Provider. rt 21:09 Hospitalizing Provider role handed off by William Spencer MD rt 21:09 Willy Patel MD is Hospitalizing Provider. rt 22:08 Patient admitted, IV remains in place. jj7 Administered Medications: 17:43 Drug: Meclizine PO 50 mg Route: PO; ld1 22:14 Follow up: Response: No adverse reaction as6 18:58 Drug: Diazepam IVP 10 mg Route: IVP; Site: right antecubital; bp 22:14 Follow up: Response: No adverse reaction as6 Medication: 22:09 VIS not applicable for this client. jj7 Outcome: 20:53 Discharge ordered by . rt 21:05 Decision to Hospitalize by Provider. rt 22:14 Admitted to Med/surg accompanied by tech, family with patient, via wheelchair, room as6 [id number], with chart. 22:14 Condition: stable 22:14 Instructed on the need for admit. 22:16 Patient left the ED. as6 Signatures: Dispatcher [employer] EDNE Tiki Ledbetter RN RN Arash Pacheco, RN RN bp Diana Sheppard kj1 Shruthi Coppola RN RN ld1 Cliff Steiner RN RN as6 Dedrick Vasquez RN RN jj7 Doug Schneider MD MD rt
--- NOTE | 2022-08-28 20:54 | EDPHYS ---
Physician Documentation [facility] Name: Blanka Parker Age: 77 yrs Sex: Female : 1945 Arrival Date: 08/28/2022 Time: 16:52 Bed 8 Private MD: ED Physician Doug Schneider HPI: 08/28 19:06 This 77 yrs old Female presents to ER via Wheelchair with complaints of Headache - rt /DIZZINESS. 19:06 Patient presents to the ED with vertigo that started about 6 hours prior to arrival. rt Patient reports sensation of the room is spinning, is unable to walk due to the dizziness and has nausea without vomiting. Patient does report a pain to the left posterior neck, however, she states that she has chronic neck issues. Denies other acute complaints at this time. Symptoms are moderate in severity, no other aggravating alleviating factors.. Historical: - Allergies: 17:27 Codeine; ph 17:27 COLLAGENASE; ph 17:27 Demerol; ph 17:27 hydromorphone; ph 17:27 Latex, Natural Rubber; ph 17:27 Lidocaine; ph 17:27 PENICILLINS; ph 17:27 Sulfa (Sulfonamide Antibiotics); ph 17:27 venlafaxine; ph 17:27 Zanaflex; ph - PMHx: 17:27 degenerative joint disease; Diverticulitis; GERD; High Cholesterol; Hypertension; ph - PSHx: 17:27 Appendectomy; back; bladder sling; Cholecystectomy; hysterectomy; neck fusion X 2; ph - Immunization history:: Adult Immunizations unknown. - Social history:: Smoking status: Patient denies any tobacco usage or history of. - Family history:: not pertinent. ROS: 19:06 Constitutional: Negative for fever, chills, and weight loss, Cardiovascular: Negative rt for chest pain, palpitations, and edema, Respiratory: Negative for shortness of breath, cough, wheezing, and pleuritic chest pain. 19:06 Skin: Negative for injury, rash, and discoloration, Psych: Negative for depression, anxiety, suicide ideation, homicidal ideation, and hallucinations. 19:06 Neck: Positive for pain with movement, Negative for injury or acute deformity. 19:06 Abdomen/GI: Positive for nausea and vomiting, Negative for abdominal pain. 19:06 Neuro: Positive for dizziness, Negative for altered mental status. Exam: 19:06 Constitutional: This is a well developed, well nourished patient who is awake, alert, rt and in no acute distress. Head/Face: Normocephalic, atraumatic. Neck: Trachea midline, no thyromegaly or masses palpated, and no cervical lymphadenopathy. Supple, full range of motion without nuchal rigidity, or vertebral point tenderness. No Meningismus. Chest/axilla: Normal chest wall appearance and motion. Nontender with no deformity. No lesions are appreciated. Cardiovascular: Regular rate and rhythm with a normal S1 and S2. No gallops, murmurs, or rubs. Normal PMI, no JVD. No pulse deficits. Respiratory: Lungs have equal breath sounds bilaterally, clear to auscultation and percussion. No rales, rhonchi or wheezes noted. No increased work of breathing, no retractions or nasal flaring. Abdomen/GI: Soft, non-tender, with normal bowel sounds. No distension or tympany. No guarding or rebound. No evidence of tenderness throughout. Skin: Warm, dry with normal turgor. Normal color with no rashes, no lesions, and no evidence of cellulitis. MS/ Extremity: Pulses equal, no cyanosis. Neurovascular intact. Full, normal range of motion. Psych: Awake, alert, with orientation to person, place and time. Behavior, mood, and affect are within normal limits. 19:06 Eyes: Conjunctiva normal, pupils equally round and reactive to light, extraocular muscles are intact, 2-3 beats of left going nystagmus, head impulse and test of skew negative.. 19:06 ECG was reviewed by the Attending Physician. 19:06 Neuro: Cranial nerves II through XII intact, no ataxia. Nose, strength and sensation intact in upper and lower extremities.. Vital Signs: 17:24 BP 120 / 66; Pulse 71; Resp 18; Temp 97.8; Pulse Ox 97% on R/A; Weight 83.91 kg; Height ph 5 ft. 1 in. ; 18:00 BP 137 / 63; Pulse 65; Resp 18; Pulse Ox 98% on R/A; ld1 19:15 BP 154 / 73; Pulse 70; Resp 17; Pulse Ox 98% ; jj7 20:15 BP 117 / 51; Pulse 72; Resp 19; Pulse Ox 100% ; jj7 21:20 BP 117 / 57; Pulse 71; Resp 17; Pulse Ox 100% ; jj7 22:06 BP 123 / 61; Pulse 91; Resp 17; Pulse Ox 100% ; jj7 17:24 Body Mass Index 34.96 (83.91 kg, 154.94 cm) ph MDM: 17:31 Patient medically screened. rt 20:54 Differential diagnosis: Near syncope, peripheral vertigo, central vertigo, vertebral rt artery stenosis, dissection. Data reviewed: vital signs, nurses notes, lab test result(s), EKG, radiologic studies. Consideration of Admission/Observation Escalation of care including admission/observation considered. Patient with modest improvement following Valium. Had a long discussion with the patient regarding radiographic findings. I instructed the patient that stroke is a possibility for the etiology of her vertigo, stated to her that the CT scans do not definitively rule out stroke and still is a possibility. I recommended that the patient stay for further diagnostic work-up. I discussed with patient fall risk as well. Patient states that she is adamant that she does not wish to be in the hospital right now, she understands the risks of leaving. Patient has decision-making capacity. Patient understands that she may return anytime she has worsening symptoms or if she changes her mind regarding admission.. Care significantly affected by the following chronic conditions: Diabetes, Hypertension. Counseling: I had a detailed discussion with the patient and/or guardian regarding: the historical points, exam findings, and any diagnostic results supporting the discharge/admit diagnosis, lab results, radiology results. 21:04 ED course: Patient subsequently changed her mind, is now okay with admission, will rt consult hospitalist.. 08/28 17:32 Order name: CBC with Diff; Complete Time: 18:25 rt 08/28 17:32 Order name: CMP; Complete Time: 18:25 rt 08/28 17:32 Order name: Troponin High Sensitivity; Complete Time: 18:25 rt 08/28 17:32 Order name: CT Head Brain wo Cont; Complete Time: 18:25 rt 08/28 18:52 Order name: CT Head Angio; Complete Time: 20:43 rt 08/28 18:52 Order name: CT Neck Angio; Complete Time: 20:43 rt 08/28 17:32 Order name: EKG; Complete Time: 17:33 rt 06/21 17:32 Order name: EKG - Nurse/Tech; Complete Time: 17:58 rt EC:06 Rate is 64 beats/min. Rhythm is regular, Normal Sinus Rhythm with No ectopy. QRS [place] rt is Normal. HI interval is normal. QRS interval is normal. QT interval is normal. No Q waves. T waves are Normal. No ST changes noted. Interpreted by me. Administered Medications: 17:43 Drug: Meclizine PO 50 mg Route: PO; ld1 22:14 Follow up: Response: No adverse reaction as6 18:58 Drug: Diazepam IVP 10 mg Route: IVP; Site: right antecubital; bp 22:14 Follow up: Response: No adverse reaction as6 Disposition Summary: 08/28/22 21:05 Hospitalization Ordered Hospitalization Status: Observation rt Location: Telemetry/MedSurg (observation)(08/28/22 21:05) rt Condition: Stable(08/28/22 21:05) rt Problem: new(08/28/22 21:05) rt Symptoms: have improved(08/28/22 21:05) rt Bed/Room Type: Standard rt Provider: Willy Patel(08/28/22 21:09) rt Room Assignment: [facility](08/28/22 21:49) cg Diagnosis - vertigo rt Forms: - Medication Reconciliation Form rt - SBAR form rt Signatures: Dispatcher [employer] EDTiki Fischer RN SCOTTIE Katey Ortega RN RN cg Arash Pacheco RN RN bp Shruthi Coppola RN RN ld1 Doug Schneider MD MD rt Cliff Steiner RN as6 Corrections: (The following items were deleted from the chart) 21:04 20:53 Home rt rt 21:04 20:53 new rt rt 21:04 20:53 have improved rt rt 21:04 20:53 Undetermined rt rt 21:04 20:53 Vertigo rt rt 21:09 21:05 William Spencer rt rt 21:49 21:05 rt cg
--- NOTE | 2022-08-28 21:51 | P.HP ---
Certification for Inpatient Patient admitted to: Observation With expected LOS: <2 Midnights Patient will require the following post-hospital care: None Practitioner: I am a practitioner with admitting privileges, knowledge of patient current condition, hospital course, and medical plan of care. Services: Services provided to patient in accordance with Admission requirements found in Title 42 Section 412.3 of the Code of Federal Regulations Patient History Date of Service: 08/28/22 Reason for admission: Vertigo History of Present Illness: 77-year-old female with history of hypertension, hyperlipidemia, GERD, DJD presents to the emergency department chief complaint of dizziness. She reports that this morning when she was in the shower she had onset of lightheadedness/dizziness that resolved after getting out of the shower, she did fine throughout the day and then around 1630 she was up to smoke a cigarette, after finishing her cigarette she began having severe vertigo with sensation of "everything spinning around her". She was unable to walk on her own, she was brought to the emergency department for evaluation. In the ER she was evaluated her labs were significant for hemoglobin of 10.6 medic at 33.0 creatinine 1.[address] head without contrast was performed which was negative for acute findings, CTA of the head and neck were also performed, CTA of the neck did demonstrate moderate stenosis of the proximal right ICA, less than 50% stenosis of the proximal left ICA. She was given meclizine, Valium and attempted to ambulate to see if she is suitable for discharge but she was unable to ambulate without significant assistance and lives at home with her elderly . She is unfit for discharge at this time given persistent vertigo. Will admit evaluation. Allergies Nnjnyrs-ATP-IbX Reductase Inhibitor [Xvqyhpz-Wez-Fut Reductase Inhibitor] Allergy (Unknown, Verified 01/10/21 13:48) Leg Cramps Sulfa (Sulfonamide Antibiotics) Allergy (Unknown, Verified 01/10/21 13:48) low blood pressure adhesive tape Allergy (Verified 01/10/21 13:48) Itching meperidine HCl [From Demerol] Allergy (Verified 01/10/21 13:48) Anaphylaxis Penicillins Allergy (Verified 01/10/21 13:48) Unknown tizanidine HCl [From Zanaflex] Allergy (Verified 01/10/21 13:48) Anaphylaxis lidocaine Adverse Reaction (Severe, Verified 01/10/21 13:48) syncope codeine [Codeine] Adverse Reaction (Verified 01/10/21 13:48) Palpitations Latex, Natural R Allergy (Uncoded 01/10/21 13:48) Unknown Home Medications: Citalopram [Celexa*] 20 mg PO DAILY 12/01/13 Zolpidem Tartrate [Ambien] 10 mg PO BEDTIME 06/29/19 Amlodipine [Norvasc*] 5 mg PO DAILY #30 tab 06/30/19 Atorvastatin Calcium 40 mg PO DAILY 02/11/20 Omeprazole [Prilosec] 40 mg PO DAILY 02/11/20 - Past Medical/Surgical History Diabetic: No -: GERD -: HTN -: Hyperlipidemia -: Skin cancer -: DJD -: Insomnia -: Recurrent diverticulitis -: lap beulah -: lap appy -: partial hyst -: foot surgery -: neck surgery -: back surgery -: Bladder suspension Psychosocial/ Personal History: Patient lives at home with her , adequate in-home care. - Family History Mother -: Lung disease Father -: Heart disease - Social History Smoking Status: Current every day smoker Counseled patient to stop smoking for: less than 10 minutes Alcohol use: Yes CD- Drugs: No Caffeine use: Yes Place of Residence: Home Review of Systems 10-point ROS is otherwise unremarkable Neurological: Other (Vertigo, dizziness) Physical Examination - Physical Exam General: Alert, In no apparent distress, Oriented x3 HEENT: Atraumatic, PERRLA, Mucous membr. moist/pink, EOMI, Sclerae nonicteric Neck: Supple, 2+ carotid pulse no bruit, No LAD, Without JVD or thyroid abnormality Respiratory: Clear to auscultation bilaterally, Normal air movement Cardiovascular: Regular rate/rhythm, Normal S1 S2 Capillary refill: <2 Seconds Gastrointestinal: Normal bowel sounds, No tenderness Musculoskeletal: No tenderness Integumentary: No rashes Neurological: Normal gait, Normal speech, Normal strength at 5/5 x4 extr, Normal tone, Sensation intact, Cranial nerves 3-12 intact, Normal affect, Other (Left beating nystagmus) - Studies Laboratory Data (last 24 hrs) 08/28/22 18:00: Sodium 137, Potassium 4.0, BUN 16, Creatinine 1.14 H, Glucose 103, Total Bilirubin 0.3, AST 17, ALT 25, Alkaline Phosphatase 55 06/21/23 18:00: WBC 7.00, Hgb 10.6 L, Hct 33.0 L, Plt Count 269 Assessment and Plan - Plan Assessment: Intractable vertigo/unsteady gait Hypertension Hyperlipidemia GERD Plan: Intractable vertigo/unsteady gait Noted to have left beating nystagmus, symptoms are worse when lying on the left side. She does report intermittent symptoms over the course of last 1 month. NIH is 0, no other neurological deficits noted. Attempted Ivette maneuver without relief of symptoms. Will obtain MRI to rule out CVA, PT consult, as needed meclizine. Hypertension Hyperlipidemia GERD Continue home medications. DVT PPX: Lovenox Code status: Full Discharge Plan: Home Plan to discharge in: 24 Hours - Advance Directives Does patient have a Living Will: No Does patient have a Durable POA for Healthcare: No - Code Status/Comfort Care Code Status Assessed: Yes (Full code) Critical Care: No Time Spent Managing Pts Care (In Minutes): 55
[2022-08-28 22:32] VITALS: BMI 31.7
[2022-08-28] MEDS ORDERED: MECLIZINE HCL 12.5 MG TAB PO PRN (22:36)
[2022-08-28] MEDS ORDERED: ONDANSETRON 4 MG/2 ML VIAL IV PRN (22:36)
[2022-08-28 22:57] VITALS: O2SAT 100
[2022-08-28] MEDS ORDERED: CALCIUM CARBONATE CHEW 500MG TAB PO PRN (23:34)
[2022-08-29 03:42] LABS: Absolute Lymphocytes (CBC) 2.4 K/uL (0.7-4.9); Hematocrit 29.7 % (36.0-45.0); Lymphocytes % 35.2 % (15.3-44.8); MCV 82.3 fL (80-100); MPV 8.6 fL (7.6-11.3); RBC Red Blood Cell Count 3.62 M/uL (3.86-4.86)
[2022-08-29 04:14] LABS: Potassium 3.9 mEq/L (3.5-5.1); Thyroid Stimulating Hormone 2.3 uIU/mL (0.358-3.740)
--- NOTE | 2022-08-29 07:48 | RAD REPORT ---
EXAM DESCRIPTION: MRI - Brain Wo Cont - 08/29/2022 7:23 am CLINICAL HISTORY: Dizziness COMPARISON: Head CT August 28, 2022 TECHNIQUE: Axial, sagittal, and coronal magnetic resonance images of the brain were obtained. FINDINGS: Mild signal within periventricular, deep and subcortical white matter probably ischemic ch anges secondary to small vessel disease Diffusion-weighted/ADC mapping does not reveal evidence of acute infarction. The ventricles are normal caliber. An extra-axial fluid collection is not noted. Fluid within the sinuses/mastoids is not seen IMPRESSION: No acute intracranial abnormality noted
[2022-08-29 08:52] VITALS: BP 123/59; TEMP 98.8
[2022-08-29] MEDS ORDERED: ASPIRIN EC 81 MG TAB PO SCH (09:00)
[2022-08-29] MEDS ORDERED: ENOXAPARIN 40 MG/0.4 ML SQ SCH (09:00)
[2022-08-29] MEDS ORDERED: FOLIC ACID 1 MG TABLET PO SCH (09:00)
--- NOTE | 2022-08-29 14:20 | P.DS ---
Admission Date: 08/28/22 Discharge Date: 08/29/22 Disposition: ROUTINE DISCHARGE Reason for Admission: Vertigo Consultations: 1. Neurology Hospital Course: DIAGNOSES: # Peripheral Vertigo - improved # Bilateral Carotid Artery Stenosis # Hypertension # Hyperlipidemia # Gastroesophageal Reflux Disease HOSPITAL COURSE: Ms. Blanka Parker is a pleasant 77 year old female with a past medical history significant for hypertension, hyperlipidemia, and gastroesophageal reflux disease who was admitted to the [facility] on 08/28/2022 for dizziness. She was admitted to the Medicine service. Upon further evaluation, her CT head revealed, "no evidence of an acute intracranial process." Her CT head angiogram revealed, "no evidence of large vessel occlusion or flow-limiting stenosis." Her CT neck angiogram revealed, "moderate stenosis of the proximal right ICA, measuring up to 68% stenosis, with short segment plaque ulceration at that level. Less than 50% stenosis of the proximal left ICA. Vertebral arteries are patent." Her MRI brain revealed, "no acute intracranial abnormality noted." Neurology was consulted and she was evaluated by Dr. Sabillon. He diagnosed her peripheral vertigo and cleared her for discharge with PRN meclizine. On 08/29/2022, she was seen on rounds and deemed medically stable for discharge. She was discharged with instructions to schedule follow-up appointments with her PCP (Dr. Mcintyre) and with Neurology (Dr. Sabillon). She was provided a prescription for meclizine. She was given the opportunity to ask questions and reported no further questions. Furthermore, all questions were answered to the best of my ability. A copy of this discharge summary will be sent to the above providers to facilitate continuity of care. Today, I personally spent 25 minutes on her case, of which greater than 50% of the time was spent in patient education, counseling, and coordination of care as described above. Vital Signs/Physical Exam: Temp Pulse Resp BP Pulse Ox 98.8 F 70 18 123/59 L 96 08/29/22 08:00 08/29/22 08:00 08/29/22 08:00 08/29/22 08:00 08/29/22 08:00 General: Alert, In no apparent distress, Oriented x3 HEENT: Atraumatic, Sclerae nonicteric Neck: JVD not distended Respiratory: Clear to auscultation bilaterally, Normal air movement Cardiovascular: No edema, Regular rate/rhythm, Normal S1 S2, No gallops, No rubs, No murmurs Gastrointestinal: Normal bowel sounds, Soft and benign, Non-distended, No tenderness, No rebound, No guarding Musculoskeletal: No clubbing Integumentary: No rashes Neurological: Normal gait, Normal speech, Normal strength at 5/5 x4 extr, Sensation intact, Cranial nerves 3-12 intact, Normal affect Laboratory Data at Discharge: WBC 6.90 thou/uL (4.3-10.9) 08/29/22 03:03 Hgb 10.0 g/dL (12.0-15.0) L 08/29/22 03:03 Hct 29.7 % (36.0-45.0) L 08/29/22 03:03 Plt Count 254 thou/uL (152-406) 08/29/22 03:03 Sodium 138 mEq/L (136-145) 08/29/22 03:03 Potassium 3.9 mEq/L (3.5-5.1) 08/29/22 03:03 BUN 15 mg/dL (7-18) 08/29/22 03:03 Creatinine 0.94 mg/dL (0.55-1.02) 08/29/22 03:03 Glucose 98 mg/dL (74-106) 08/29/22 03:03 Total Bilirubin 0.3 mg/dL (0.2-1.0) 08/28/22 18:00 AST 17 U/L (15-37) 08/28/22 18:00 ALT 25 U/L (13-56) 08/28/22 18:00 Alkaline Phosphatase 55 U/L (45-117) 08/28/22 18:00 Home Medications: Citalopram [Celexa*] 20 mg PO DAILY 12/01/13 Zolpidem Tartrate [Ambien] 10 mg PO BEDTIME 06/29/19 Omeprazole [Prilosec] 40 mg PO DAILY 02/11/20 Alendronate Sodium 70 mg PO EVERY 7TH DAY 08/28/22 Amlodipine [Norvasc*] 10 mg PO DAILY 08/29/22 Aspirin Chewable [Aspirin Chewable*] 81 mg PO DAILY #30 tab.chew 08/29/22 Ezetimibe 10 mg PO DAILY 08/29/22 Meclizine HCl [Antivert*] 12.5 mg PO Q12H PRN #15 tab 08/29/22 Valsartan [Diovan] 80 mg PO DAILY 08/29/22 New Medications: Meclizine HCl [Antivert*] 12.5 mg PO Q12H PRN #15 tab PRN Reason: Dizziness Aspirin Chewable [Aspirin Chewable*] 81 mg PO DAILY #30 tab.chew Physician Discharge Instructions: 1. Please call and schedule a follow-up appointment with your PCP (Dr. Mcintyre) in 3-5 days - Your labs showed mild anemia. Please discuss with your PCP for further evaluation. 2. Please call and schedule a follow-up appointment with Neurology (Dr. Sabillon) in 5-7 days - As we discussed, you have narrowing in your carotid arteries. Please discuss with Dr. Sabillon at your appointment Diet: AHA Activity: Fall precautions Followup: Florinda Mcintyre, [OUTSIDE PHYSICIAN] - Efraín Sabillon MD [ASSOCIATE-ACTIVE - CAN ADMIT] - Time spent managing pt's care (in minutes): 25
--- NOTE | 2022-08-29 17:41 | EKG ---
Test Date: 2022-08-28 Test Time: 17:56:09 Composing Machine Operator: Derek MARK MEASUREMENT RESULTS: Intervals: Rate: 64 [place]: 206 QRSD: 80 QT: 430 QTc: 443 [place]: P: 56 [place]: 206 QRS: 21 T: 70 INTERPRETIVE STATEMENTS: Normal sinus rhythm Normal ECG Compared to ECG 12/23/2020 00:46:38 Sinus tachycardia no longer present Electronically Signed On 08-29-22 17:39:29 CDT by Cristopher Shepherd
== END 2022-08-29 15:00 | disposition home or self-care (01) ==
LOC: ER 16:52 → ERHOLD 21:37 → 2ND 22:17
PROVIDERS: ADMIT Internal Medicine; ATTEND Internal Medicine
DX: I65.23 Occlusion and stenosis of bilateral carotid arteries (principal); R26.81 Unsteadiness on feet; I10 Essential (primary) hypertension; E78.5 Hyperlipidemia, unspecified; K21.9 Gastro-esophageal reflux disease without esophagitis; M19.90 Unspecified osteoarthritis, unspecified site; F17.210 Nicotine dependence, cigarettes, uncomplicated; Z88.0 Allergy status to penicillin; Z88.2 Allergy status to sulfonamides; Z91.040 Latex allergy status; Z88.8 Allergy status to other drugs, medicaments and biological substances
CPT/HCPCS: 85025; 36415; 84484; 80053; 70450; 70496; 70498; Q9967; J8597 ×2; J3360; 70551; 80048; 84439; 84443; 93005; 97161; J1650

== ENCOUNTER 2022-09-03 05:50 | Day surgery (SDC) | payer OTHER ==
--- NOTE | 2022-08-29 17:39 | EKG ---
Test Date: 2022-08-29 Test Time: 09:48:54 Supervisor Roving Department: [facility] MEASUREMENT RESULTS: Intervals: Rate: 63 [place]: 206 QRSD: 80 QT: 428 QTc: 437 [place]: P: 79 [place]: 206 QRS: -11 T: 53 INTERPRETIVE STATEMENTS: Normal sinus rhythm Inferior infarct, age undetermined Abnormal ECG Compared to ECG 08/28/2022 17:56:09 Myocardial infarct finding now present Electronically Signed On 08-29-22 17:38:51 CDT by Cristopher Shepherd
[2022-09-03] MEDS ORDERED: Ringers Lactate 1,000 ML IV ONE ×2 (06:21→09:26)
[2022-09-03] MEDS ORDERED: CLINDAMYCIN 900MG/D5W 900 MG/50 ML IVPB IV ONE (06:21)
[2022-09-03] MEDS ORDERED: BUPIVACAINE 0.75% (PF) 2 ML SP ONE (06:33)
[2022-09-03] MEDS ORDERED: MORPHINE SULFATE/PF 1 MG/ML (10 ML AMP) ONE (06:34)
[2022-09-03] MEDS ORDERED: propofoL 200 MG/20 ML VIAL IV ONE ×5 (06:41→08:22)
[2022-09-03] MEDS ORDERED: FENTANYL CITR 100 MCG/2 ML ONE (06:41)
[2022-09-03] MEDS ORDERED: MIDAZOLAM HCL 2 MG/2 ML INJ ONE (06:41)
[2022-09-03] MEDS ORDERED: EPINEPHRINE/PF 1 MG/ML AMP ONE ×2 (06:42→08:14)
[2022-09-03] MEDS ORDERED: LIDOCAINE 2% MPF 5 ML VIAL ONE (06:42)
[2022-09-03] MEDS ORDERED: ONDANSETRON 4 MG/2 ML VIAL ONE ×2 (07:29→09:27)
[2022-09-03] MEDS ORDERED: EPHEDRINE SULF 50 MG/ML VIAL ONE (07:36)
[2022-09-03] MEDS ORDERED: TRANEXAMIC ACID 1,000 MG/10 ML VIAL IV ONE (07:48)
[2022-09-03] MEDS ORDERED: ROPIVACAINE HCL 40 ML ONE (08:14)
[2022-09-03] MEDS ORDERED: dexAMETHasone 10 MG/ML VIAL ONE (08:14)
[2022-09-03] MEDS ORDERED: Phenylephrine HCl 10 MG/ML 1 ML VIAL ONE (08:15)
--- NOTE | 2022-09-03 09:13 | OP ---
Date of Procedure: 09/03/2022 Surgeon: Augusto Bender MD Preoperative Diagnosis: Right hip chronic bursitis with probable partial tearing of the abductor mus culature. Postoperative Diagnoses: 1.Chronic trochanteric bursitis. 2.Partial tearing of the abductor musculature. Procedure: Right open bursal excision with repair of the abductor musculature. Estimated Blood Loss: 20 cc. Complications: No complications. Pathology Specimens: No pathology specimens sent. Indications For Operation: Ms. Parker is a 77-year-old female, who has been troubled with the right hip for quite some time. She would get temporary relief from injections and these were done fairly r epeatedly. With combination of physical therapy, she failed to make significant improvements. An MR Miguel Angel demonstrates bursal inflammation with probable abductor tear. Risks, benefits, and alternatives of different methods of treating this been discussed with the patient. She states she understands thin gs as presented and wished to proceed. Description Of Procedure: The patient was taken to the operating room and placed in the supine posit ion. General anesthesia was obtained by the staff. Following this, she was then placed left side do wn with an axillary roll. Hip positioner was then used to place her in the [id number] position. Her right lower extremity was then prepped and draped in the usual sterile fashion for this procedur e. After this, a standard posterolateral incision was made carefully through skin and soft tissues. Meticulous hemostasis being maintained using Bovie electrocautery. This leads down to the fascia. A small stab wound was made. Fascia and gluteal tendon were palpated to ensure correct position. Th is was then taken up to near the tip of the greater trochanter. This was gently curved backwards. A fter this, the underlying bursa was encountered and was removed. The abductor musculature attachment appeared to be quite thickened and altogether healthy. Combination of Bovie and rongeur were then u sed to debride back the abductor musculature that appeared to be diseased with some rasping of the la teral portion of the trochanter. After this, there was noted to be anteriorly a small full-thickness defect and a JuggerKnot suture anchor was then placed and this was then tied down. It should be str essed that this does not include the entire only the anterior portion of the abductor tend on. After this, the wound was copiously irrigated and the fascia was closed slightly looser than nor mal. It was again irrigated. The skin was closed using interrupted Vicryl sutures followed by stapl es. The patient was then placed in Aquacel dressing and a block was then performed by Anesthesia sta ff. She was taken to recovery room. LISA Voice ID: [id number] Report ID: [id number]
[2022-09-03] MEDS: MORPHINE 4 MG/ML SYR ONE ×4 (09:15→09:54)
[2022-09-03] MEDS ORDERED: KETOROLAC 30 MG/ML INJ ONE (09:50)
[2022-09-03] MEDS ORDERED: HYDROCODONE/APAP 7.5/325 MG TAB ONE (11:06)
[2022-09-03 14:24] VITALS: BP 97/46; TEMP 96; O2SAT 96
== END 2022-09-03 11:41 | disposition home or self-care (01) ==
LOC: OR 05:50
PROVIDERS: ATTEND Orthopaedic Surgery
PROC: 0KQN0ZZ Repair Right Hip Muscle, Open Approach (ICD-10-PCS; 2022-09-03)
PROC: 0MBL0ZZ Excision of Right Hip Bursa and Ligament, Open Approach (ICD-10-PCS; principal; 2022-09-03 07:00)
DX: M70.61 Trochanteric bursitis, right hip (principal); S76.011A Strain of muscle, fascia and tendon of right hip, initial encounter
CPT/HCPCS: 93005; 27062; 27299; J2704 ×5; J0171 ×2; J2370; J2001; J2250; J3010; J1100; J2405 ×2; J7120 ×2

== ENCOUNTER 2022-12-30 11:30 | Emergency (ER) | payer OTHER ==
[2011-08-17 19:58] VITALS: BP 168/75
--- OUTSIDE RECORDS SUMMARY | 2022-12-30 11:38 | XMS REPORT | Continuity of Care Document ---
:1945 Author Organization [facility] t Address [address] [place] [address] Care Team Providers Name Role Phone CRISTEL PEREZ Primary Care Physician Unavailable Ashwini Dixon Attending Clinician Unavailable Cristel PEREZ Attending Clinician Unavailable BRYNN BROOKS Attending Clinician Unavailable EbraBrynn Goodrich Attending Clinician Unknown, Attending Attending Clinician Unavailable 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, [facility] Attending Clinician Unavailable Elena Espino MD Attending Clinician ELENA ESPINO Attending Clinician Unavailable CHAU SOLANO Attending Clinician Unavailable Chau Swanson Attending Clinician [facility] Main Attending Clinician Unavailable SILVIA CM Attending Clinician Unavailable [facility] Cardio Vascular Attending Clinician Unavailable Louie Ramon Attending Clinician Morris Bergman Attending Clinician ELENA ESPINO Admitting Clinician Unavailable Payers Payer Name Policy Type Policy Number Effective Date Expiration Date S musa MEDICARE PART A [id number] 2010 \\T\\ B 00:00:00 [id number] 2020 00:00:00 C1 [id number] [facility] MEDICARE MB [id number] [facility] C1 [id number] [facility] MEDICARE MB [id number] [facility] C1 [id number] [facility] MEDICARE MB [id number] [facility] C1 [id number] [facility] MEDICARE MB [id number] Common [facility] Problems Condition Condition Condition Status Onset Resolution Last Treating Co mments Source Name Details Category Date Date Treatment Clinician Date Left hand Left hand Disease Active Uni vers pain pain 08-08 ity of 00:00: [place] [address] [facility] Osteoporos Osteoporos Problem C ommon is is [facility] Asthma Asthma Problem Common [facility] Vitamin D Vitamin D Problem Com [facility] Allergic Allergic Problem Commo n rhinitis rhinitis [facility] COPD - COPD Problem Common Chronic (chronic Spirit obstructiv obstructiv - [facility] e e pulmonary pulmonary Boykins s disease disease) [facility] Goiter Goiter Problem Common [facility] [id number] Primary Problem Common insomnia [facility] Irritable Irritable Problem Com mon bowel bowel [facility] Gastroesop Reflux Problem Commo n hageal Spirit reflux - [facility] disease [facility] Kidney Kidney Problem Common stone stone [facility] Sinus Sinus Problem Common problem problem [facility] Hyperlipid Hyperlipem Problem C ommon aemia ia [facility] High High Problem Common cholestero cholestero Sp miky l l [facility] Hypertensi HTN Problem Commo n on (hypertens Spirit ion) [facility] [id number] Primary Problem Commo n osteoarthr Spirit itis of - CHI right [facility] [id number] Other Problem Common osteoarthr Spirit itis - [facility]I involving [facility] [id number] Cigarette Problem Comm on nicotine [facility] dependence - [facility] without [facility] [id number] Anxiety Problem Commo n with Spirit depression - [facility] [id number] Iron Problem Common deficiency Spirit anemia, - CHI unspecifie St d iron [facility] deficiency Medica l anemia Center type [id number] PUD Problem Common (peptic Spirit ulcer - CHI disease) [facility] [id number] Trochanter Problem Comm on ic Spirit bursitis - CHI of right hip [facility] [id number] Right hip Problem Co mmon [id number] pain Spirit - CHI [facility] Constipati Constipati Problem C ommon on on Spirit - CHI [facility] [id number] Smoking Problem Common greater Spirit than 40 - CHI pack years [facility] [id number] Bilateral Problem Com mon carotid Spirit artery - [facility] stenosis [facility] [id number] Thyroid Problem Commo n nodule Spirit incidental - CHI ly noted [facility] on [facility] [id number] Atheroscle Problem C ommon [id number] rosis of Spirit both - [facility] carotid [facility] Cancer Cancer Problem Common [facility] - [facility] Diverticul Diverticul Problem C ommon itis itis [facility] [id number] Lumbar Problem Common pain [facility] [id number] Lower Problem Common urinary [facility] tract - [facility]I symptoms [facility] Nodule of Adrenal Problem Commo n adrenal nodule [facility] cortex - [facility] (disorder) [facility] [id number] Status Problem Common post hip Spirit surgery - [facility] [id number] Pain of Problem Common right Spirit thigh - CHI [facility] [id number] [place], [place] [id number] joint, Spirit knee, left - [facility] [id number] Strain of Problem Com mon gluteus Spirit medius of - CHI right [facility] extremity, Medica l subsequent Center encounter [id number] Tear of Problem Commo n right Spirit gluteus - [facility] initial Medical encounter Center Diverticul Diverticu Problem Active 2017-03-15 Memoria ar disease lar 04:23:59 l (disorder) disease Dahlia nn (disorder) Active Problem 03/15/2017 [facility] Morbid Morbid Problem Active 2017-03-15 Richy gris obesity obesity 04:23:59 l (disorder) (disorder) He rmann Active Problem 03/15/2017 [facility] Allergies, Adverse Reactions, Alerts Allergy Allergy Status Severity Reaction(s) Onset Inactive Treating Comm ents Source Name Type Date Date Clinician LATEX DRUG Active Swelling Univers INGREDI 7-21 ity of 00:00: [place] [facility] Latex Drug Active Swelling Univers Allergy -21 ity of 00:00: [place] 00 [facility] MEPERIDI DRUG Active Anaphylaxis 2019-03 Uni vers NE INGREDI 1-24 ity of 00:00: [place] 00 [facility] PENICILL Drug Active Diarrhea 2019-03 Univer s INS Class 1-24 ity of 00:00: [place] 00 [facility] Meperidi Drug Active Anaphylaxis 2019-03 Uni vers ne Allergy 1-24 ity of 00:00: [place] 00 [facility] Penicill Drug Active Diarrhea 2019-03 Univer s ins Allergy 1-24 ity of 00:00: [place] 00 [facility] Sulfa Propensi Active Diarrhea 2018-0 Univer s (Sulfona ty to 9-12 ity of mide adverse 00:00: [place] Antibiot reaction 00 Medica l ics) s Branch SULFA Drug Active Diarrhea 2019-0 Univers (SULFONA Class 9-12 ity of MIDE 00:00: [place] ANTIBIOT 00 Medical ICS) Branch TIZANIDI DRUG Active Anaphylaxis 2018- Uni vers NE HCL INGREDI 9-12 ity of 00:00: [place] 00 [facility] Sulfa Propensi Active Diarrhea 2019-0 Univer s (Sulfona ty to 9-12 ity of mide adverse 00:00: [place] Antibiot reaction 00 Medica l ics) s Branch Tizanidi Propensi Active Anaphylaxis 2019-0 U nivers ne Hcl ty to 9-12 ity of adverse 00:00: [place] reaction 00 Medical s Branch Meperidi Propensi Active Anaphylaxis 2016-0 U nivers ne Hcl ty to 6-01 ity of adverse 00:00: [place] reaction 00 Medical s Branch CODEINE DRUG Active Palpitations 2015- Uni vers INGREDI 6- ity of 00:00: [place] 00 [facility] MEPERIDI DRUG Active Anaphylaxis 2015- Uni vers NE HCL INGREDI 6- ity of 00:00: [place] 00 [facility] codeine codeine Active Memoria l [place] Zanaflex Zanaflex Active Memori a l [place] Demerol Demerol Active Memoria HCl HCl l [place] Latex Latex Active Memoria l Renny tizanidi tizanidi Active anaphylaxis C ommon ne ne [facility] tioconaz tioconaz Active swelling of C ommon ole ole labia [facility] Codeine Codeine Active rapid heart Com mon rate [facility] 5138 Drug Active dizziness Common allergy [facility] Penicill Penicill Active chronic Commo n in in diahrrea [facility] Social History Social Habit Start Date Stop Date Quantity Comments Source Sex Assigned At [facility] Sp miky - [facility] History of Cigarette Smoker Universi ty of tobacco use [facility] Tobacco use and 2022-08-18 2022-08-18 Smokeless tobacco Un iversity of exposure 00:00:00 00:00:00 non-user [facility] Alcohol intake 2022-08-18 2022-08-18 0 /d University of 00:00:00 00:00:00 [facility] Smoking Status Start Date Stop Date Source Former Smoker 2021-12-21 00:00:00 2021-12-21 00:00:00 [facility] Never Smoker [facility] Social History 2017-03-12 22:12:03 [facility] Medications Ordered Filled Start Stop Current Ordering Indication Dosage Frequency Signature Comments Components Source Medication Medication Date Date Medication? Clinician (SIG) Name Name cephALEXin 2022- No [id number] 500mg Take 1 Univers (KEFLEX) 08-18 [id number] capsule by it y of 500 mg 00:00: 04:59 mouth 4 [place] capsule 00 :00 (four) Medical times [place] daily for 10 days. Ambien 10 Ambien 10 No QD Ambien 10 MG MG 3-21 MG 00:00: 00 Ambien 10 Ambien 10 No QD Ambien 10 MG MG 3-21 MG 00:00: 00 Ambien 10 Ambien 10 No QD Ambien 10 MG MG 3-21 MG 00:00: 00 Bupivicaine Bupivicaine No 5mL Common [place] 2-27 Spirit 00:00: - CHI 00 [facility] Kenalog Kenalog 2022-0 No 2mL Common (Triamcinol (Triamcinol 2-27 S pirit one) one) 00:00: - CHI 00 [facility] Bupivicaine Bupivicaine 2022-0 No 5mL Common [place] 2-27 Spirit 00:00: - CHI 00 [facility] Jackalog Jackalog 2022-0 No 2mL Common (Triamcinol (Triamcinol 2-27 S pirit one) one) 00:00: - CHI 00 [facility] Bupivicaine Bupivicaine 2022-0 No 5mL Common [place] 2-27 Spirit 00:00: - CHI 00 [facility] Александр Santiagoalog 2022-0 No 2mL Common (Triamcinol (Triamcinol 2-27 S pirit one) one) 00:00: - CHI 00 [facility] Ambien 10 Ambien 10 2021-0 No Ambien 10 MG MG 7-22 MG 00:00: 00 Ambien 10 Ambien 10 2-0 No Ambien 10 MG MG 7-22 MG 00:00: 00 Ambien 10 Ambien 10 2-0 No Ambien 10 MG MG 7-22 MG 00:00: 00 Ambien 10 Ambien 10 2-0 No Ambien 10 MG MG 7-22 MG 00:00: 00 Ambien 10 Ambien 10 2-0 No Ambien 10 MG MG 7-22 MG 00:00: 00 Ambien 10 Ambien 10 2-0 No Ambien 10 MG MG 7-22 MG 00:00: 00 Fluconazole Fluconazole 2-0 2022- No 1{table Fluconazol 150 MG 150 MG 7-20 07-21 t} e 150 MG 00:00: 00:00 00 :00 Atorvastati Atorvastati 2021-0 No 1{table QD Atorvastat [...] MG 00:00: 40 MG 00 Atorvastati Atorvastati 0 No 1{table QD Atorvastat n Calcium n Calcium 6-30 t} in Calcium 40 MG 40 MG 00:00: 40 MG 00 Atorvastati Atorvastati 0 No 1{table QD Atorvastat n Calcium n Calcium 6-30 t} in Calcium 40 MG 40 MG 00:00: 40 MG 00 Atorvastati Atorvastati 0 No 1{table QD Atorvastat n Calcium n Calcium 6-30 t} in Calcium 40 MG 40 MG 00:00: 40 MG Atorvastati Atorvastati No 1{table QD Atorvastat n Calcium n Calcium 6-30 t} in Calcium 40 MG 40 MG 00:00: 40 MG 00 Atorvastati Atorvastati 0 No 1{table QD Atorvastat [...] 40 MG 00:00: 40 MG Atorvastati Atorvastati 0 No 1{table QD Atorvastat n Calcium n Calcium 6-30 t} in Calcium 40 MG 40 MG 00:00: 40 MG Atorvastati Atorvastati No 1{table QD Atorvastat n Calcium n Calcium 6-30 t} in Calcium 40 MG 40 MG 00:00: 40 MG Atorvastati Atorvastati 0 No 1{table QD Atorvastat n Calcium n Calcium 6-30 t} in Calcium 40 MG 40 MG 00:00: 40 MG 00 Atorvastati Atorvastati 0 No 1{table QD Atorvastat n Calcium n Calcium 6-30 t} in Calcium 40 MG 40 MG 00:00: 40 MG 00 Atorvastati Atorvastati 0 No 1{table QD Atorvastat n Calcium n Calcium 6-30 t} in Calcium 40 MG 40 MG 00:00: 40 MG 00 Atorvastati Atorvastati 0 No 1{table QD Atorvastat n Calcium n Calcium 6-30 t} in Calcium 40 MG 40 MG 00:00: 40 MG 00 Atorvastati Atorvastati 0 No 1{table QD Atorvastat n Calcium n Calcium 6-30 t} in Calcium 40 MG 40 MG 00:00: 40 MG 00 Atorvasta Atorvastati 0 No 1{table QD Atorvastat n Calcium n Calcium 6-30 t} in Calcium 40 MG 40 MG 00:00: 40 MG 00 Atorvastati Atorvastati 0 No 1{table QD Atorvastat [...] 10 2021-0 No Ambien 10 MG MG 4-22 MG 00:00: 00 Ambien 10 Ambien 10 2021-0 No Ambien 10 MG MG 4-22 MG 00:00: 00 Ambien 10 Ambien 10 2-0 No Ambien 10 MG MG 4-22 MG 00:00: 00 Ambien 10 Ambien 10 2-0 No Ambien 10 MG MG 4-22 MG 00:00: 00 Ambien 10 Ambien 10 2-0 No Ambien 10 MG MG 4-22 MG 00:00: 00 Lidocaine Lidocaine 2-0 No 10mg Com 06-28 Spirit 00:00: - CHI 00 [facility] Kenalog Kenalog 2-0 No 40mg Common (Triamcinol (Triamcinol 4-21 S pirit one) one) 00:00: - CHI 00 [facility] Lidocaine Lidocaine 2-0 No 10mg Com 06-28 Spirit 00:00: - CHI 00 [facility] Kenalog Kenalog 2-0 No 40mg Common (Triamcinol (Triamcinol 4-21 S pirit one) one) 00:00: - CHI 00 [facility] Lidocaine Lidocaine 2-0 No 10mg Com 06-28 Spirit 00:00: - CHI 00 [facility] Kenalog Kenalog 2-0 No 40mg Common (Triamcinol (Triamcinol 4-21 S pirit one) one) 00:00: - CHI 00 [facility] Lidocaine Lidocaine 2-0 No 10mg Com 06-28 Spirit 00:00: - CHI 00 [facility] Kenalog Kenalog 2-0 No 40mg Common (Triamcinol (Triamcinol 4-21 S pirit one) one) 00:00: - CHI 00 [facility] Lidocaine Lidocaine 2022-0 No 10mg Com 06-28 Spirit 00:00: - CHI 00 [facility] Kenalog Kenalog 2-0 No 40mg Common (Triamcinol (Triamcinol 4-21 S pirit one) one) 00:00: - CHI 00 [facility] Lidocaine Lidocaine 2022-0 No 10mg Com 06-28 Spirit 00:00: - CHI 00 [facility] Kenalog Kenalog 2022-0 No 40mg Common (Triamcinol (Triamcinol 4-21 S pirit one) one) 00:00: - CHI 00 [facility] Lidocaine Lidocaine 2022-0 No 10mg Com 06-28 Spirit 00:00: - CHI 00 [facility] Kenalog Kenalog 2-0 No 40mg Common (Triamcinol (Triamcinol 4-21 S pirit one) one) 00:00: - CHI 00 [facility] Lidocaine Lidocaine 2-0 No 10mg Com 06-28 Spirit 00:00: - CHI 00 [facility] Kenalog Kenalog 2-0 No 40mg Common (Triamcinol (Triamcinol 4-21 S pirit one) one) 00:00: - CHI 00 [facility] Lidocaine Lidocaine 2-0 No 10mg Com 06-28 Spirit 00:00: - CHI 00 [facility] Kenalog Kenalog 2-0 No 40mg Common (Triamcinol (Triamcinol 4-21 S pirit one) one) 00:00: - CHI [facility] Lidocaine Lidocaine 2-0 No 10mg Com 06-28 Spirit 00:00: - CHI 00 [facility] Kenalog Kenalog 2-0 No 40mg Common (Triamcinol (Triamcinol 4-21 S pirit one) one) 00:00: - CHI 00 [facility] Lidocaine Lidocaine 2-0 No 10mg Com 06-28 Spirit 00:00: - CHI 00 [facility] Kenalog Kenalog 2-0 No 40mg Common (Triamcinol (Triamcinol 4-21 S pirit one) one) 00:00: - CHI 00 [facility] Lidocaine Lidocaine 2022-0 No 10mg Com 06-28 Spirit 00:00: - CHI 00 [facility] Kenalog Kenalog 2-0 No 40mg Common (Triamcinol (Triamcinol 4-21 S pirit one) one) 00:00: - CHI 00 [facility] Lidocaine Lidocaine 2022-0 No 10mg Com 06-28 Spirit 00:00: - CHI 00 [facility] Kenalog Kenalog 2022-0 No 40mg Common (Triamcinol (Triamcinol 4-21 S pirit one) one) 00:00: - CHI 00 [facility] Lidocaine Lidocaine 2-0 No 10mg Com 06-28 Spirit 00:00: - CHI 00 [facility] Kenalog Kenalog 2-0 No 40mg Common (Triamcinol (Triamcinol 4-21 S pirit one) one) 00:00: - CHI 00 [facility] Lidocaine Lidocaine 2-0 No 10mg Com 06-28 Spirit 00:00: - CHI 00 [facility] Kenalog Kenalog 2-0 No 40mg Common (Triamcinol (Triamcinol 4-21 S pirit one) one) 00:00: - CHI 00 [facility] Lidocaine Lidocaine 2-0 No 10mg Com 06-28 Spirit 00:00: - CHI 00 [facility] Kenalog Kenalog 2-0 No 40mg Common (Triamcinol (Triamcinol 4-21 S pirit one) one) 00:00: - CHI 00 [facility] Lidocaine Lidocaine 2-0 No 10mg Com 06-28 Spirit 00:00: - CHI 00 [facility] Kenalog Kenalog 2-0 No 40mg Common (Triamcinol (Triamcinol 4-21 S pirit one) one) 00:00: - CHI 00 [facility] Lidocaine Lidocaine 2-0 No 10mg Com 06-28 Spirit 00:00: - CHI 00 [facility] Kenalog Kenalog 2-0 No 40mg Common (Triamcinol (Triamcinol 4-21 S pirit one) one) 00:00: - CHI 00 [facility] Lidocaine Lidocaine 2-0 No 10mg Com 06-28 Spirit 00:00: - CHI 00 [facility] Kenalog Kenalog 2-0 No 40mg Common (Triamcinol (Triamcinol 4-21 S pirit one) one) 00:00: - CHI 00 [facility] Lidocaine Lidocaine 2022-0 No 10mg Com 06-28 Spirit 00:00: - CHI 00 [facility] Kenalog Kenalog 2-0 No 40mg Common (Triamcinol (Triamcinol 4-21 S pirit one) one) 00:00: - CHI 00 [facility] Lidocaine Lidocaine 2-0 No 10mg Com 06-28 Spirit 00:00: - CHI 00 [facility] Kenalog Kenalog 2-0 No 40mg Common (Triamcinol (Triamcinol 4-21 S pirit one) one) 00:00: - CHI 00 [facility] Lidocaine Lidocaine 2-0 No 10mg Com 06-28 Spirit 00:00: - CHI 00 [facility] Kenalog Kenalog 2-0 No 40mg Common (Triamcinol (Triamcinol 4-21 S pirit one) one) 00:00: - CHI 00 [facility] Lidocaine Lidocaine 2-0 No 10mg Com 06-28 Spirit 00:00: - CHI 00 [facility] Kenalog Kenalog 2-0 No 40mg Common (Triamcinol (Triamcinol 4-21 S pirit one) one) 00:00: - CHI 00 [facility] Lidocaine Lidocaine 2-0 No 10mg Com 06-28 Spirit 00:00: - CHI 00 [facility] Kenalog Kenalog 2-0 No 40mg Common (Triamcinol (Triamcinol 4-21 S pirit one) one) 00:00: - CHI 00 [facility] Lidocaine Lidocaine 2-0 No 10mg Com 06-28 Spirit 00:00: - CHI 00 [facility] Kenalog Kenalog 2-0 No 40mg Common (Triamcinol (Triamcinol 4-21 S pirit one) one) 00:00: - CHI 00 [facility] Lidocaine Lidocaine 2022-0 No 10mg Com 06-28 Spirit 00:00: - CHI 00 [facility] Kenalog Kenalog 2-0 No 40mg Common (Triamcinol (Triamcinol 4-21 S pirit one) one) 00:00: - CHI 00 [facility] Lidocaine Lidocaine 2022-0 No 10mg Com 06-28 Spirit 00:00: - CHI 00 [facility] Kenalog Kenalog 2022-0 No 40mg Common (Triamcinol (Triamcinol 4-21 S pirit one) one) 00:00: - CHI 00 [facility] Lidocaine Lidocaine 2-0 No 10mg Com 06-28 Spirit 00:00: - CHI 00 [facility] Kenalog Kenalog 2021-0 No 40mg Common (Triamcinol (Triamcinol 4-21 S pirit one) one) 00:00: - CHI 00 [facility] Lidocaine Lidocaine 2-0 No 10mg Com 06-28 Spirit 00:00: - CHI 00 [facility] Kenalog Kenalog 2021-0 No 40mg Common (Triamcinol (Triamcinol 4-21 S pirit one) one) 00:00: - CHI 00 [facility] Lidocaine Lidocaine 2021-0 No 10mg Com 06-28 Spirit 00:00: - CHI 00 [facility] Kenalog Kenalog 2021-0 No 40mg Common (Triamcinol (Triamcinol 4-21 S pirit one) one) 00:00: - CHI 00 [facility] Lidocaine Lidocaine 2021-0 No 10mg Com 06-28 Spirit 00:00: - CHI 00 [facility] Kenalog Kenalog 2021-0 No 40mg Common (Triamcinol (Triamcinol 4-21 S pirit one) one) 00:00: - CHI 00 [facility] Zolpidem Zolpidem 2021-0 No Zolpidem Tartrate 10 Tartrate 10 3-28 Tartrate MG MG 00:00: 10 MG [facility] Jose Cien 10 No 1{table QD Ambien 10 3-28 [...] Ambien 2021-0 No 1{table QD Ambien 10 3-28 t_at_be 00:00: dtime_a 00 s_neede d} Zolpidem Zolpidem 2021-0 No Zolpidem Tartrate 10 Tartrate 10 3-28 Tartrate MG MG 00:00: 10 MG 00 Zolpidem Zolpidem 2021-0 No Zolpidem Tartrate 10 Tartrate 10 3-28 Tartrate MG MG 00:00: 10 MG 00 Ambien 10 Ambien 0 No 1{table QD Ambien 10 3-28 [...] 3-28 t_at_be 00:00: dtime_a 00 s_neede d} Nystatin Nystatin 2021-0 2- No QID Nystatin [id number] 2-22 03-04 [id number] UNIT/ML UNIT/ML 00:00: 00:00 UNIT/ML 00 :00 Zolpidem Zolpidem 2021-0 No Zolpidem Tartrate 10 Tartrate 10 2-21 Tartrate MG MG 00:00: 10 MG 00 Ambien 10 Ambien 10 2020-1 No Ambien 10 MG MG 1-24 MG 00:00: 00 Ambien 10 Ambien 10 2020-1 No Ambien 10 MG MG 1-24 MG 00:00: 00 Ambien 10 Ambien 10 2020-1 No Ambien 10 MG MG 1-24 MG 00:00: 00 Ambien 10 Ambien 10 2020-1 No Ambien 10 MG MG 1-24 MG 00:00: 00 Ambien 10 Ambien 10 2020-1 No Ambien 10 MG MG 1-24 MG 00:00: 00 Ambien 10 Ambien 10 2020-1 No MG MG 1-24 00:00: 00 Zolpidem [...] MG MG 00:00: 00 Procto-Med Procto-Med 2020-0 2021- No 1{appli Procto-Med HC 2.5 % HC [...] le} 20 MG 00:00: 00 Omeprazole Omeprazole 2021-0 No 1{capsu QD Omeprazole 20 MG 20 MG 1-06 le} 20 MG 00:00: 00 PredniSONE PredniSONE 2019-0 2020- No Na Perez 2 tablet Common 11-15 daily x 5 Spirit 00:00: 00:00 days then - CHI 00 :[address] daily x 5 [facility] Ipratropium Ipratropium 2020- No Na Perez 2 sprays Common [place] Riverton 10-28 in each Spiri t 00:00: 00:00 nostril - CHI 00 :00 [facility] Baclofen Baclofen 2020- No Na Perez 1/2 tablet Common 10-10 with food Spirit 00:00: 00:00 or milk - CHI 00 :00 [facility] Atorvastati Atorvastati Yes Na Perez 1 tablet Common n Calcium n Calcium 6- Spiri t 00:00: - CHI 00 [facility] Atorvastati Atorvastati No 1{table QD Atorvastat n Calcium n Calcium 6 t} in Calcium 20 MG 20 MG 00:00: 20 MG 00 Atorvastati Atorvastati No 1{table QD Atorvastat n Calcium n Calcium 6-09 t} in Calcium 20 MG 20 MG 00:00: 20 MG 00 zolpidem 10 Yes TK 1 T PO U nivers mg tablet 2-10 QHS PRN ity of 00:00: [facility] zolpidem 10 2019-0 Yes TK 1 T PO U nivers mg tablet 2-10 QHS PRN ity of 00:00: [facility] zolpidem 10 2019-0 Yes TK 1 T PO U nivers mg tablet 2-10 QHS PRN ity of 00:00: [facility] zolpidem 10 2019-0 Yes TK 1 T PO U nivers mg tablet 2-10 QHS PRN ity of 00:00: [facility] zolpidem 10 2019-0 Yes TK 1 T PO U nivers mg tablet 2-10 QHS PRN ity of 00:00: [facility] zolpidem 10 2019-0 Yes TK 1 T PO U nivers mg tablet 2-10 QHS PRN ity of 00:00: [place] [facility] zolpidem 10 2020-0 Yes TK 1 T PO U nivers mg tablet 2-10 QHS PRN ity of 00:00: [place] [facility] zolpidem 10 2020-0 Yes TK 1 T PO U nivers mg tablet 2-10 QHS PRN ity of 00:00: [place] 00 [facility] zolpidem 10 2020-0 Yes TK 1 T PO U nivers mg tablet 2-10 QHS PRN ity of 00:00: [place] [facility] zolpidem 10 2020-0 Yes TK 1 T PO U nivers mg tablet 2-10 QHS PRN ity of 00:00: [place] 00 [facility] zolpidem 10 2020-0 Yes TK 1 T PO U nivers mg tablet 2-10 QHS PRN ity of 00:00: [place] 00 [facility] zolpidem 10 2020-0 Yes TK 1 T PO U nivers mg tablet 2-10 QHS PRN ity of 00:00: [place] 00 [facility] zolpidem 10 2020-0 Yes TK 1 T PO U nivers mg tablet 2-10 QHS PRN ity of 00:00: [place] 00 [facility] zolpidem 10 2020-0 Yes TK 1 T PO U nivers mg tablet 2-10 QHS PRN ity of 00:00: [place] 00 [facility] zolpidem 10 2020-0 Yes TK 1 T PO U nivers mg tablet 2-10 QHS PRN ity of 00:00: [place] 00 [facility] methylPREDN 2020-0 Yes [id number] 84mg Take 21 [facility] ISolone 1-21 9102 tablets by ity of (MEDROL, 00:00: mouth [place] FADI,) 4 mg 00 SEE-INSTRU Med ical tablets CTIONS. Branch follow package directions methylPREDN 2020-0 Yes [id number] 84mg Take 21 [facility] ISolone 1-21 9102 tablets by ity of (MEDROL, 00:00: mouth [place] FADI,) 4 mg 00 SEE-INSTRU Med ical tablets CTIONS. Branch follow package directions methylPREDN 2020-0 Yes [id number] 84mg Take 21 [facility] ISolone 1-21 9102 tablets by ity of (MEDROL, 00:00: mouth [place] FADI,) 4 mg 00 SEE-INSTRU Med ical tablets CTIONS. Branch follow package directions methylPREDN 2020-0 Yes [id number] 84mg Take 21 [facility] ISolone 1-21 9102 tablets by ity of (MEDROL, 00:00: mouth [place] FADI,) 4 mg 00 SEE-INSTRU Med ical tablets CTIONS. Branch follow package directions methylPREDN 2020-0 Yes [id number] 84mg Take 21 [facility] ISolone 1-21 9102 tablets by ity of (MEDROL, 00:00: mouth [place] FADI,) 4 mg 00 SEE-INSTRU Med ical tablets CTIONS. Branch follow package directions methylPREDN 2020-0 Yes [id number] 84mg Take 21 [facility] ISolone 1-21 9102 tablets by ity of (MEDROL, 00:00: mouth [place] FADI,) 4 mg 00 SEE-INSTRU Med ical tablets CTIONS. Branch follow package directions methylPREDN 2020-0 Yes [id number] 84mg Take 21 [facility] ISolone 1-21 9102 tablets by ity of (MEDROL, 00:00: mouth [place] FADI,) 4 mg 00 SEE-INSTRU Med ical tablets CTIONS. Branch follow package directions methylPREDN 2020-0 Yes [id number] 84mg Take 21 [facility] ISolone 1-21 9102 tablets by ity of (MEDROL, 00:00: mouth [place] FADI,) 4 mg 00 SEE-INSTRU Med ical tablets CTIONS. Branch follow package directions methylPREDN 2020-0 Yes [id number] 84mg Take 21 [facility] ISolone 1-21 9102 tablets by ity of (MEDROL, 00:00: mouth [place] FADI,) 4 mg 00 SEE-INSTRU Med ical tablets CTIONS. Branch follow package directions methylPREDN 2020-0 Yes [id number] 84mg Take 21 [facility] ISolone 1-21 9102 tablets by ity of (MEDROL, 00:00: mouth [place] FADI,) 4 mg 00 SEE-INSTRU Med ical tablets CTIONS. Branch follow package directions methylPREDN 2020-0 Yes [id number] 84mg Take 21 [facility] ISolone 1-21 9102 tablets by ity of (MEDROL, 00:00: mouth [place] FADI,) 4 mg 00 SEE-INSTRU Med ical tablets CTIONS. Branch follow package directions methylPREDN 2020-0 Yes [id number] 84mg Take 21 [facility] ISolone 1-21 9102 tablets by ity of (MEDROL, 00:00: mouth [place] FADI,) 4 mg 00 SEE-INSTRU Med ical tablets CTIONS. Branch follow package directions methylPREDN 2020-0 Yes [id number] 84mg Take 21 [facility] ISolone 1-21 9102 tablets by ity of (MEDROL, 00:00: mouth [place] FADI,) 4 mg 00 SEE-INSTRU Med ical tablets CTIONS. Branch follow package directions methylPREDN 2020-0 Yes [id number] 84mg Take 21 [facility] ISolone 1-21 9102 tablets by ity of (MEDROL, 00:00: mouth [place] FADI,) 4 mg 00 SEE-INSTRU Med ical tablets CTIONS. Branch follow package directions methylPREDN 2020-0 Yes [id number] 84mg Take 21 [facility] ISolone 1-21 9102 tablets by ity of (MEDROL, 00:00: mouth [place] FADI,) 4 mg 00 SEE-INSTRU Med ical tablets CTIONS. Branch follow package directions methylPREDN 2020-0 Yes [id number] 84mg Take 21 [facility] ISolone 1-21 9102 tablets by ity of (MEDROL, 00:00: mouth [place] FADI,) 4 mg 00 SEE-INSTRU Med ical tablets CTIONS. Branch follow package directions methylPREDN 2020-0 Yes [id number] 84mg Take 21 [facility] ISolone 1-21 9102 tablets by ity of (MEDROL, 00:00: mouth [place] FADI,) 4 mg 00 SEE-INSTRU Med ical tablets CTIONS. Branch follow package directions methylPREDN 2020-0 Yes [id number] 84mg Take 21 [facility] ISolone 1-21 4109 tablets by ity of (MEDROL, 00:00: mouth [place] FADI,) 4 mg 00 SEE-INSTRU Med ical tablets CTIONS. Branch follow package directions methylPREDN 2020-0 Yes [id number] 84mg Take 21 [facility] ISolone 1-21 4109 tablets by ity of (MEDROL, 00:00: mouth [place] FADI,) 4 mg 00 SEE-INSTRU Med ical tablets CTIONS. Branch follow package directions triamcinolo 2020-0 2020- No 40mg Unive rs ne 03-23 ity of acetonide 20:30: 19:30 [place] (KENALOG) 00 :00 Medical injection Branch 40 mg triamcinolo 2020-0 2020- No 40mg 40 mg, Uni vers ne 03-23 Intra-malissa ity of acetonide 20:30: 19:30 erena [place] (KENALOG) 00 :00 ONCE, 1 Medical injection dose, Tue Branc h 40 mg 03/23/19 at 1430, Routine triamcinolo 2020-0 2020- No 40mg Unive rs ne 03-23 ity of acetonide 20:30: 19:30 [place] (KENALOG) 00 :00 Medical injection Branch 40 mg triamcinolo 2020-0 2020- No 40mg 40 mg, Uni vers ne 03-23 Intra-malissa ity of acetonide 20:30: 19:30 reena [place] (KENALOG) 00 :00 ONCE, 1 Medical injection [...] mg 00:00: [place] Tab Medical Branch Amlodipine- 2018-03 Yes TK [...] mg 00:00: [place] Tab Medical [facility] Amlodipine- 2018-03 Yes TK 1 T PO U nivers Olmesartan 2-24 D ity of 10-20 mg 00:00: [place] Tab Medical Branch Amlodipine- 2018-03 Yes TK 1 T PO U nivers Olmesartan 2-24 D ity of 10-20 mg 00:00: [place] Tab Medical Branch Amlodipine- 2019- Yes TK 1 T PO U nivers Olmesartan 2-24 D ity of 10-20 mg 00:00: [place] Tab Medical Branch Amlodipine- 2018-03 Yes TK 1 T PO U nivers Olmesartan 2-24 D ity of 10-20 mg 00:00: [place] Tab Medical Branch Amlodipine- 2018-03 Yes TK 1 T PO U nivers Olmesartan 2-24 D ity of 10-20 mg 00:00: [place] Tab [facility] Amlodipine- 2018- Yes TK 1 T PO U nivers Olmesartan 2-24 D ity of 10-20 mg 00:00: [place] Tab [facility] Amlodipine- 2018-03 Yes TK 1 T PO U nivers Olmesartan 2-24 D ity of 10-20 mg 00:00: [place] Tab [facility] Amlodipine- 2018-03 Yes TK 1 T PO U nivers Olmesartan 2-24 D ity of 10-20 mg 00:00: [place] Tab [facility] Amlodipine- 2018-03 Yes TK 1 T PO U nivers Olmesartan 2-24 D ity of 10-20 mg 00:00: [place] [facility] omeprazole 2019- Yes [facility] 40 mg 2-23 ity of capsule 00:00: [address] Branch omeprazole 2019- Yes [facility] 40 mg 2-23 ity of capsule 00:00: [address] Branch omeprazole 2018-03 Yes [facility] 40 mg 2-23 ity of capsule 00:00: [address] Branch omeprazole 2018- Yes [facility] 40 mg 2-23 ity of capsule 00:00: [address] Branch omeprazole 2019- Yes [facility] 40 mg 2-23 ity of capsule 00:00: [place] [address] Medical Branch omeprazole 2018- Yes [facility] 40 mg 2-23 ity of capsule 00:00: [place] [address] Medical Branch omeprazole 2019- Yes [facility] 40 mg 2-23 ity of capsule 00:00: [address] Branch omeprazole 2018- Yes [facility] 40 mg 2-23 ity of capsule 00:00: [address] Branch omeprazole 2018-03 Yes Univers 40 mg 2-23 ity of capsule 00:00: [address] Branch omeprazole 2018- Yes [facility] 40 mg 2-23 ity of capsule 00:00: [place] 00 Medical Branch omeprazole 2018- Yes [facility] 40 mg 2-23 ity of capsule 00:00: Medical Branch omeprazole 2018- Yes [facility] 40 mg 2-23 ity of capsule 00:00: Medical Branch omeprazole 2018- Yes [facility] 40 mg 2-23 ity of capsule 00:00: [place] [facility] omeprazole 2018- Yes [facility] 40 mg 2-23 ity of capsule 00:00: [place] [facility] omeprazole 2018- Yes [facility] 40 mg 2-23 ity of capsule 00:00: [place] [facility] dexamethaso 2018- 2019- No 10mg 10 mg, Uni vers ne 11-20 Oral, ity of (DECADRON) 03:15: 02:16 ONCE, 1 [facility] injection 00 :00 dose, [facility] 10 mg 11/19/18 at Branch 2215, Routine HYDROcodone 2019- No 1{tbl} 1 tablet, Univers -acetaminop 11-20 Oral, ONCE i ty of hen (NORCO) 03:15: 02:04 NOW, 1 [facility] as 10-325 mg 00 :00 dose, [facility] tablet 1 11/19/18 at [facility] tablet 2215, Routine naproxen 2018- Yes [id number] 250mg Take 1 [facility] 250 mg - [id number] tablet by ity of tablet 00:00: mouth 2 (two) Medical times Branch daily with meals. pentazocine 2018- Yes [id number] 1{tbl} Take 1 [facility] -naloxone - [id number] tablet by ity of 50-0.5 mg 00:00: mouth [place] tablet 00 every 6 Medical (six) Branch hours as needed for Pain. cyclobenzap 2018- Yes [id number] 5mg Take 1 [facility] rine 5 mg - [id number] tablet by ity of tablet 00:00: mouth at [place] 00 bedtime. Medical Branch naproxen 2019-0 Yes [id number] 250mg Take 1 [facility] 250 mg - [id number] tablet by ity of tablet 00:00: mouth 2 00 (two) Medical times Branch daily with meals. pentazocine 2018- Yes [id number] 1{tbl} Take 1 [facility] -naloxone - [id number] tablet by ity of 50-0.5 mg 00:00: mouth [place] tablet 00 every 6 Medical (six) Branch hours as needed for Pain. cyclobenzap Yes [id number] 5mg Take 1 [facility] rine 5 mg 9-12 [id number] tablet by ity of tablet 00:00: mouth at [place] 00 bedtime. Medical Branch naproxen Yes [id number] 250mg Take 1 [facility] 250 mg 9-12 [id number] tablet by ity of tablet 00:00: mouth 2 [place] 00 (two) Medical times Branch daily with meals. pentazocine Yes [id number] 1{tbl} Take 1 [facility] -naloxone 9-12 [id number] tablet by ity of 50-0.5 mg 00:00: mouth [place] tablet 00 every 6 Medical (six) Branch hours as needed for Pain. cyclobenzap Yes [id number] 5mg Take 1 [facility] rine 5 mg 9-12 [id number] tablet by ity of tablet 00:00: mouth at [place] 00 bedtime. Medical Branch naproxen Yes [id number] 250mg Take 1 [facility] 250 mg 9-12 [id number] tablet by ity of tablet 00:00: mouth 2 [place] 00 (two) Medical times Branch daily with meals. pentazocine Yes [id number] 1{tbl} Take 1 [facility] -naloxone 9-12 [id number] tablet by ity of 50-0.5 mg 00:00: mouth [place] tablet 00 every 6 Medical (six) Branch hours as needed for Pain. cyclobenzap Yes [id number] 5mg Take 1 [facility] rine 5 mg 9-12 [id number] tablet by ity of tablet 00:00: mouth at [place] 00 bedtime. Medical Branch naproxen Yes [id number] 250mg Take 1 [facility] 250 mg 9-12 [id number] tablet by ity of tablet 00:00: mouth 2 [place] 00 (two) Medical times Branch daily with meals. pentazocine Yes [id number] 1{tbl} Take 1 [facility] -naloxone 9-12 [id number] tablet by ity of 50-0.5 mg 00:00: mouth [place] tablet 00 every 6 Medical (six) Branch hours as needed for Pain. cyclobenzap Yes [id number] 5mg Take 1 [facility] rine 5 mg 9-12 [id number] tablet by ity of tablet 00:00: mouth at [place] 00 bedtime. Medical Branch naproxen Yes [id number] 250mg Take 1 [facility] 250 mg 9-12 [id number] tablet by ity of tablet 00:00: mouth 2 (two) Medical times Branch daily with meals. naproxen Yes [id number] 250mg Take 1 [facility] 250 mg 9-12 [id number] tablet by ity of tablet 00:00: mouth 2 (two) Medical times Branch daily with meals. pentazocine Yes [id number] 1{tbl} Take 1 [facility] -naloxone 9-12 [id number] tablet by ity of 50-0.5 mg 00:00: mouth [place] tablet 00 every 6 Medical (six) Branch hours as needed for Pain. cyclobenzap Yes [id number] 5mg Take 1 [facility] rine 5 mg 9-12 [id number] tablet by ity of tablet 00:00: mouth at [place] 00 bedtime. Medical Branch pentazocine Yes [id number] 1{tbl} Take 1 [facility] -naloxone 9-12 [id number] tablet by ity of 50-0.5 mg 00:00: mouth [place] tablet 00 every 6 Medical (six) Branch hours as needed for Pain. naproxen Yes [id number] 250mg Take 1 [facility] 250 mg 9-12 [id number] tablet by ity of tablet 00:00: mouth 2 (two) Medical times Branch daily with meals. pentazocine Yes [id number] 1{tbl} Take 1 [facility] -naloxone 9-12 [id number] tablet by ity of 50-0.5 mg 00:00: mouth [place] tablet 00 every 6 Medical (six) Branch hours as needed for Pain. cyclobenzap Yes [id number] 5mg Take 1 [facility] rine 5 mg 9-12 [id number] tablet by ity of tablet 00:00: mouth at [place] 00 bedtime. Medical Branch naproxen Yes [id number] 250mg Take 1 [facility] 250 mg 9-12 [id number] tablet by ity of tablet 00:00: mouth 2 00 (two) Medical times Branch daily with meals. pentazocine Yes [id number] 1{tbl} Take 1 Univers -naloxone 9-12 [id number] tablet by ity of 50-0.5 mg 00:00: mouth [place] tablet 00 every 6 Medical (six) Branch hours as needed for Pain. cyclobenzap Yes [id number] 5mg Take 1 [facility] rine 5 mg 9-12 [id number] tablet by ity of tablet 00:00: mouth at [place] 00 bedtime. Medical Branch cyclobenzap Yes [id number] 5mg Take 1 [facility] rine 5 mg 9-12 [id number] tablet by ity of tablet 00:00: mouth at [place] 00 bedtime. Medical Branch naproxen Yes [id number] 250mg Take 1 [facility] 250 mg 9-12 [id number] tablet by ity of tablet 00:00: mouth 2 [place] (two) Medical times Branch daily with meals. pentazocine Yes [id number] 1{tbl} Take 1 Univers -naloxone 9-12 [id number] tablet by ity of 50-0.5 mg 00:00: mouth [place] tablet 00 every 6 Medical (six) Branch hours as needed for Pain. cyclobenzap Yes [id number] 5mg Take 1 [facility] rine 5 mg 9-12 [id number] tablet by ity of tablet 00:00: mouth at [place] 00 bedtime. Medical Branch naproxen Yes [id number] 250mg Take 1 [facility] 250 mg 9-12 [id number] tablet by ity of tablet 00:00: mouth 2 (two) Medical times Branch daily with meals. pentazocine Yes [id number] 1{tbl} Take 1 [facility] -naloxone 9-12 [id number] tablet by ity of 50-0.5 mg 00:00: mouth [place] tablet 00 every 6 Medical (six) Branch hours as needed for Pain. cyclobenzap Yes [id number] 5mg Take 1 [facility] rine 5 mg 9-12 [id number] tablet by ity of tablet 00:00: mouth at [place] 00 bedtime. Medical Branch naproxen Yes [id number] 250mg Take 1 [facility] 250 mg 9-12 [id number] tablet by ity of tablet 00:00: mouth 2 [place] 00 (two) Medical times Branch daily with meals. pentazocine Yes [id number] 1{tbl} Take 1 Univers -naloxone 9-12 [id number] tablet by ity of 50-0.5 mg 00:00: mouth [place] tablet 00 every 6 Medical (six) Branch hours as needed for Pain. cyclobenzap 2018- Yes [id number] 5mg Take 1 [facility] rine 5 mg 9-12 [id number] tablet by ity of tablet 00:00: mouth at [place] 00 bedtime. Medical Branch naproxen Yes [id number] 250mg Take 1 [facility] 250 mg 9-12 [id number] tablet by ity of tablet 00:00: mouth 2 [place] 00 (two) Medical times Branch daily with meals. pentazocine 2018- Yes [id number] 1{tbl} Take 1 Univers -naloxone 9-12 [id number] tablet by ity of 50-0.5 mg 00:00: mouth [place] tablet 00 every 6 Medical (six) Branch hours as needed for Pain. cyclobenzap Yes [id number] 5mg Take 1 [facility] rine 5 mg 9-12 [id number] tablet by ity of tablet 00:00: mouth at [place] 00 bedtime. Medical Branch naproxen Yes [id number] 250mg Take 1 [facility] 250 mg 9-12 [id number] tablet by ity of tablet 00:00: mouth 2 [place] 00 (two) Medical times Branch daily with meals. pentazocine Yes [id number] 1{tbl} Take 1 Univers -naloxone 9-12 [id number] tablet by ity of 50-0.5 mg 00:00: mouth [place] tablet 00 every 6 Medical (six) Branch hours as needed for Pain. cyclobenzap Yes [id number] 5mg Take 1 [facility] rine 5 mg 9-12 [id number] tablet by ity of tablet 00:00: mouth at [place] 00 bedtime. Medical Branch naproxen Yes [id number] 250mg Take 1 [facility] 250 mg 9-12 [id number] tablet by ity of tablet 00:00: mouth 2 [place] 00 (two) Medical times Branch daily with meals. pentazocine 2019- Yes [id number] 1{tbl} Take 1 Univers -naloxone 9-12 [id number] tablet by ity of 50-0.5 mg 00:00: mouth [place] tablet 00 every 6 Medical (six) Branch hours as needed for Pain. cyclobenzap Yes [id number] 5mg Take 1 [facility] rine 5 mg 9-12 [id number] tablet by ity of tablet 00:00: mouth at [place] 00 bedtime. Medical Branch naproxen Yes [id number] 250mg Take 1 [facility] 250 mg 9-12 [id number] tablet by ity of tablet 00:00: mouth 2 (two) Medical times Branch daily with meals. pentazocine Yes [id number] 1{tbl} Take 1 [facility] -naloxone 9-12 [id number] tablet by ity of 50-0.5 mg 00:00: mouth [place] tablet 00 every 6 Medical (six) Branch hours as needed for Pain. cyclobenzap Yes [id number] 5mg Take 1 [facility] rine 5 mg 9-12 [id number] tablet by ity of tablet 00:00: mouth at [place] 00 bedtime. Medical Branch naproxen Yes [id number] 250mg Take 1 [facility] 250 mg 9-12 [id number] tablet by ity of tablet 00:00: mouth 2 (two) Medical times Branch daily with meals. pentazocine Yes [id number] 1{tbl} Take 1 Univers -naloxone 9-12 [id number] tablet by ity of 50-0.5 mg 00:00: mouth [place] tablet 00 every 6 Medical (six) Branch hours as needed for Pain. cyclobenzap Yes [id number] 5mg Take 1 [facility] rine 5 mg 9-12 [id number] tablet by ity of tablet 00:00: mouth at [place] 00 bedtime. Medical Branch naproxen Yes [id number] 250mg Take 1 [facility] 250 mg 9-12 [id number] tablet by ity of tablet 00:00: mouth 2 (two) Medical times Branch daily with meals. pentazocine Yes [id number] 1{tbl} Take 1 Univers -naloxone 9-12 [id number] tablet by ity of 50-0.5 mg 00:00: mouth [place] tablet 00 every 6 Medical (six) Branch hours as needed for Pain. cyclobenzap Yes [id number] 5mg Take 1 [facility] rine 5 mg 9-12 [id number] tablet by ity of tablet 00:00: mouth at [place] 00 bedtime. Medical Branch naproxen Yes [id number] 250mg Take 1 [facility] 250 mg 9-12 [id number] tablet by ity of tablet 00:00: mouth 2 (two) Medical times Branch daily with meals. pentazocine Yes [id number] 1{tbl} Take 1 [facility] -naloxone 9-12 [id number] tablet by ity of 50-0.5 mg 00:00: mouth [place] tablet 00 every 6 Medical (six) Branch hours as needed for Pain. cyclobenzap Yes [id number] 5mg Take 1 [facility] rine 5 mg 9-12 [id number] tablet by ity of tablet 00:00: mouth at [place] 00 bedtime. Medical Branch naproxen Yes [id number] 250mg Take 1 [facility] 250 mg 9-12 [id number] tablet by ity of tablet 00:00: mouth 2 [place] 00 (two) Medical times Branch daily with meals. pentazocine Yes [id number] 1{tbl} Take 1 Univers -naloxone 9-12 [id number] tablet by ity of 50-0.5 mg 00:00: mouth [place] tablet 00 every 6 Medical (six) Branch hours as needed for Pain. cyclobenzap Yes [id number] 5mg Take 1 [facility] rine 5 mg 9-12 [id number] tablet by ity of tablet 00:00: mouth at [place] 00 bedtime. Medical Branch naproxen Yes [id number] 250mg Take 1 [facility] 250 mg 9-12 [id number] tablet by ity of tablet 00:00: mouth 2 [place] (two) Medical times Branch daily with meals. pentazocine Yes [id number] 1{tbl} Take 1 Univers -naloxone 9-12 [id number] tablet by ity of 50-0.5 mg 00:00: mouth [place] tablet 00 every 6 Medical (six) Branch hours as needed for Pain. cyclobenzap Yes [id number] 5mg Take 1 [facility] rine 5 mg 9-12 [id number] tablet by ity of tablet 00:00: mouth at [place] 00 bedtime. Medical Branch naproxen Yes [id number] 250mg Take 1 [facility] 250 mg 9-12 [id number] tablet by ity of tablet 00:00: mouth 2 [place] 00 (two) Medical times Branch daily with meals. pentazocine Yes [id number] 1{tbl} Take 1 Univers -naloxone 9-12 [id number] tablet by ity of 50-0.5 mg 00:00: mouth [place] tablet 00 every 6 Medical (six) Branch hours as needed for Pain. cyclobenzap Yes [id number] 5mg Take 1 [facility] rine 5 mg 9-12 [id number] tablet by ity of tablet 00:00: mouth at [place] 00 bedtime. Medical Branch naproxen Yes [id number] 250mg Take 1 [facility] 250 mg 9-12 [id number] tablet by ity of tablet 00:00: mouth 2 [place] 00 (two) Medical times Branch daily with meals. pentazocine Yes [id number] 1{tbl} Take 1 Univers -naloxone 9-12 [id number] tablet by ity of 50-0.5 mg 00:00: mouth [place] tablet 00 every 6 Medical (six) Branch hours as needed for Pain. cyclobenzap Yes [id number] 5mg Take 1 [facility] rine 5 mg 9-12 [id number] tablet by ity of tablet 00:00: mouth at [place] 00 bedtime. Medical Branch naproxen Yes [id number] 250mg Take 1 [facility] 250 mg 9-12 [id number] tablet by ity of tablet 00:00: mouth 2 (two) Medical times Branch daily with meals. naproxen Yes [id number] 250mg Take 1 [facility] 250 mg 9-12 [id number] tablet by ity of tablet 00:00: mouth 2 [place] (two) Medical times Branch daily with meals. pentazocine Yes [id number] 1{tbl} Take 1 Univers -naloxone 9-12 [id number] tablet by ity of 50-0.5 mg 00:00: mouth [place] tablet 00 every 6 Medical (six) Branch hours as needed for Pain. cyclobenzap Yes [id number] 5mg Take 1 Univers rine 5 mg 9-12 [id number] tablet by ity of tablet 00:00: mouth at [place] 00 bedtime. Medical Branch pentazocine Yes [id number] 1{tbl} Take 1 Univers -naloxone 9-12 [id number] tablet by ity of 50-0.5 mg 00:00: mouth [place] tablet 00 every 6 Medical (six) Branch hours as needed for Pain. cyclobenzap Yes [id number] 5mg Take 1 [facility] rine 5 mg 9-12 [id number] tablet by ity of tablet 00:00: mouth at [place] 00 bedtime. Medical Branch naproxen 2019-0 Yes [id number] 250mg Take 1 [facility] 250 mg 9-12 [id number] tablet by ity of tablet 00:00: mouth 2 00 (two) Medical times Branch daily with meals. pentazocine 2019- Yes [id number] 1{tbl} Take 1 Univers -naloxone 9-12 [id number] tablet by ity of 50-0.5 mg 00:00: mouth [place] tablet 00 every 6 Medical (six) Branch hours as needed for Pain. cyclobenzap 2019- Yes [id number] 5mg Take 1 [facility] rine 5 mg 9-12 [id number] tablet by ity of tablet 00:00: mouth at [place] 00 bedtime. Medical Branch naproxen 2019- Yes [id number] 250mg Take 1 [facility] 250 mg 9-12 [id number] tablet by ity of tablet 00:00: mouth 2 (two) Medical times Branch daily with meals. pentazocine 2018- Yes [id number] 1{tbl} Take 1 Univers -naloxone 9-12 [id number] tablet by ity of 50-0.5 mg 00:00: mouth [place] tablet 00 every 6 Medical (six) Branch hours as needed for Pain. cyclobenzap Yes [id number] 5mg Take 1 [facility] rine 5 mg 9-12 [id number] tablet by ity of tablet 00:00: mouth at [place] 00 bedtime. Medical Branch naproxen 2018- Yes [id number] 250mg Take 1 [facility] 250 mg 9-12 [id number] tablet by ity of tablet 00:00: mouth 2 (two) Medical times Branch daily with meals. pentazocine 2019- Yes [id number] 1{tbl} Take 1 [facility] -naloxone 9-12 [id number] tablet by ity of 50-0.5 mg 00:00: mouth [place] tablet 00 every 6 Medical (six) Branch hours as needed for Pain. cyclobenzap 2018- Yes [id number] 5mg Take 1 [facility] rine 5 mg 9-12 [id number] tablet by ity of tablet 00:00: mouth at [place] 00 bedtime. Medical Branch naproxen 2018- Yes [id number] 250mg Take 1 [facility] 250 mg 9-12 [id number] tablet by ity of tablet 00:00: mouth 2 [place] (two) Medical times Branch daily with meals. pentazocine 2019- Yes [id number] 1{tbl} Take 1 [facility] -naloxone 11-19 [id number] tablet by ity of 50-0.5 mg 00:00: mouth [place] tablet 00 every 6 Medical (six) Branch hours as needed for Pain. cyclobenzap Yes [id number] 5mg Take 1 [facility] rine 5 mg 11-19 [id number] tablet by ity of tablet 00:00: mouth at [place] 00 bedtime. Medical Branch acetaminoph 2019- No [id number] 650mg Take 2 [facility] en 11-19 [id number] tablets by ity of (TYLENOL) 00:00: 04:59 mouth 4 [place] 325 mg 00 :00 (four) Medical tablet times Branch daily for 5 days. This is the maximum safe dose for a healthy adult. Citalopram Yes 40 mg = 1 Me moria 40 MG Oral -03 tab, PO, l Tablet 22:12: Daily, 0 [place] [Celexa] 00 Refill(s) spironolact Yes 25 mg = 1 M emoria one 25 mg -03 tab, PO, l oral tablet 22:12: BID, 0 [facility] daisy 00 Refill(s) atorvastati Yes 20 mg = 1 M emoria n 20 mg -03 tab, PO, l oral tablet 22:12: Daily, 0 [place] 00 Refill(s) cyclobenzap Yes 10 mg = 1 M emoria rine 10 mg -03 tab, PO, l oral tablet 22:12: TID, [...] tab, PO, Memoria en 325 MG / 1-03 Q6H, 0 l Hydrocodone 22:12: Refill(s) H [place] Bitartrate 00 5 MG Oral Tablet [[place] 5/325] Omeprazole Yes PO, Daily, M emoria 1-03 0 l 22:12: Refill(s) [place] 00 OMEPRAZOLE Yes Take by [facility] MAGNESIUM 08-08 mouth. ity of (PRILOSEC 19:24: [place] OTC ORAL) Medical Branch [facility] 08-08 mouth. ity of 1,000 mcg 19:24: [place] [facility] Medical Branch CITALOPRAM Yes Take by [facility] HYDROBROMID 08-08 mouth. ity of E (CELEXA 19:24: [place] ORAL) Medical Branch CARVEDILOL Yes Take by [employer] ORAL 08-08 mouth. ity of 19:24: [place] [address] Medical Branch OMEPRAZOLE Yes Take by [facility] MAGNESIUM 08-08 mouth. ity of (PRILOSEC 19:24: [place] OTC ORAL) Medical Branch selexipag Yes Take by [facility] rs (UPTRAVI) 08-08 mouth. ity of 1,000 mcg 19:24: [place] Tab Medical Branch CITALOPRAM Yes Take by [facility] HYDROBROMID 08-08 mouth. ity of E (CELEXA 19:24: [place] ORAL) Medical Branch CARVEDILOL Yes Take by [employer] ORAL 08-08 mouth. ity of 19:24: [place] [address] Medical Branch OMEPRAZOLE Yes Take by [facility] MAGNESIUM 08-08 mouth. ity of (PRILOSEC 19:24: [place] OTC ORAL) Medical Branch selexipag Yes Take by [facility] (UPTRAVI) 08-08 mouth. ity of 1,000 mcg 19:24: [place] [facility] Medical Branch CITALOPRAM Yes Take by [facility] [employer] HYDROBROMID 08-08 mouth. ity of E (CELEXA 19:24: [place] ORAL) Medical Branch CARVEDILOL Yes Take by [employer] ORAL 08-08 mouth. ity of 19:24: [place] [id number] Medical Branch OMEPRAZOLE Yes Take by [facility] MAGNESIUM 601 mouth. ity of (PRILOSEC 19:24: [place] OTC ORAL) 51 Medical Branch OMEPRAZOLE 2016-0 Yes Take by Univ ers MAGNESIUM 6- mouth. ity of (PRILOSEC 19:24: [place] OTC ORAL) 51 Medical Branch selexipag Yes Take by Unive rs (UPTRAVI) 6 mouth. ity of 1,000 mcg 19:24: [place] Tab Medical [facility] CITALOPRAM Yes Take by Univ ers HYDROBROMID 6 mouth. ity of E (CELEXA 19:24: [place] ORAL) 51 Medical Branch CARVEDILOL Yes Take by Univ ers ORAL 08-08 mouth. ity of 19:24: [place] [address] Medical Branch selexipag Yes Take by Unive rs (UPTRAVI) 6 mouth. ity of 1,000 mcg 19:24: [place] [facility] Branch OMEPRAZOLE Yes Take by Univ ers MAGNESIUM 6-01 mouth. ity of (PRILOSEC 19:24: [place] OTC ORAL) Medical Branch CITALOPRAM Yes Take by Univ ers HYDROBROMID 6 mouth. ity of E (CELEXA 19:24: [place] ORAL) Medical Branch selexipag Yes Take by Unive rs (UPTRAVI) 08-08 mouth. ity of 1,000 mcg 19:24: [place] [facility] Branch CITALOPRAM Yes Take by Univ ers HYDROBROMID 6 mouth. ity of E (CELEXA 19:24: [place] ORAL) 51 Medical Branch CARVEDILOL 2015-0 Yes Take by Univ ers ORAL 6 mouth. ity of 19:24: [place] [id number] Medical Branch CARVEDILOL 20160 Yes Take by Univ ers ORAL 08-08 mouth. ity of 19:24: [place] [address] Medical Branch OMEPRAZOLE 2016-0 Yes Take by Univ ers MAGNESIUM 6-01 mouth. ity of (PRILOSEC 19:24: [place] OTC ORAL) Medical Branch selexipag 0 Yes Take by Unive rs (UPTRAVI) 6 mouth. ity of 1,000 mcg 19:24: [place] [facility] Branch CITALOPRAM 0 Yes Take by Univ ers HYDROBROMID 6 mouth. ity of E (CELEXA 19:24: [place] ORAL) 51 Medical Branch CARVEDILOL 2016-0 Yes Take by Univ ers ORAL 6- mouth. ity of 19:24: [place] [address] Medical Branch OMEPRAZOLE 2016-0 Yes Take by Univ ers MAGNESIUM 6-01 mouth. ity of (PRILOSEC 19:24: [place] OTC ORAL) 51 Medical Branch selexipag 2016- Yes Take by Unive rs (UPTRAVI) 6 mouth. ity of 1,000 mcg 19:24: [place] Tab 51 Medical Branch CITALOPRAM 2016-0 Yes Take by Univ ers HYDROBROMID 6- mouth. ity of E (CELEXA 19:24: [place] ORAL) 51 Medical Branch CARVEDILOL 2016- Yes Take by Univ ers ORAL 6 mouth. ity of 19:24: [place] [id number] Medical Branch OMEPRAZOLE 2016- Yes Take by Univ ers MAGNESIUM 6-01 mouth. ity of (PRILOSEC 19:24: [place] OTC ORAL) 51 Medical Branch selexipag Yes Take by Unive rs (UPTRAVI) 6 mouth. ity of 1,000 mcg 19:24: [place] Tab [facility] CITALOPRAM Yes Take by Univ ers HYDROBROMID 6-01 mouth. ity of E (CELEXA 19:24: [place] ORAL) 51 Medical Branch CARVEDILOL 20160 Yes Take by Univ ers ORAL 6- mouth. ity of 19:24: [place] [address] Medical Branch OMEPRAZOLE 2016 Yes Take by [facility] ers MAGNESIUM 6-01 mouth. ity of (PRILOSEC 19:24: [place] OTC ORAL) 51 Medical Branch selexipag Yes Take by Unive rs (UPTRAVI) 6- mouth. ity of 1,000 mcg 19:24: [place] Tab 51 Medical Branch CITALOPRAM 20160 Yes Take by Univ ers HYDROBROMID 6-01 mouth. ity of E (CELEXA 19:24: [place] ORAL) 51 Medical Branch CARVEDILOL 2016-0 Yes Take by Univ ers ORAL 6-01 mouth. ity of 19:24: [place] [address] Medical Branch OMEPRAZOLE 2016-0 Yes Take by [...] ers ORAL 6 mouth. ity of 19:24: [place] [address] Medical Branch OMEPRAZOLE 2016-0 Yes Take by Univ ers MAGNESIUM 6-01 mouth. ity of (PRILOSEC 19:24: [place] OTC ORAL) 51 Medical Branch selexipag 2016- Yes Take by Unive rs (UPTRAVI) 6 mouth. ity of 1,000 mcg 19:24: [place] [id number] Medical Branch CITALOPRAM 2016 Yes Take by Univ ers HYDROBROMID 6 mouth. ity of E (CELEXA 19:24: [place] ORAL) Medical Branch CARVEDILOL 0 Yes Take by Univ ers ORAL 6 mouth. ity of 19:24: [place] [address] Medical Branch OMEPRAZOLE 20160 Yes Take by Univ ers MAGNESIUM 6-01 mouth. ity of (PRILOSEC 19:24: [place] OTC ORAL) Medical Branch selexipag Yes Take by Unive rs (UPTRAVI) 6 mouth. ity of 1,000 mcg 19:24: [place] [address] Medical Branch CITALOPRAM 20160 Yes Take by Univ ers HYDROBROMID 6 mouth. ity of E (CELEXA 19:24: [place] ORAL) 51 Medical Branch CARVEDILOL 2016-0 Yes Take by Univ ers ORAL 6 mouth. ity of 19:24: [place] [address] Medical Branch OMEPRAZOLE 2016-0 Yes Take by Univ ers MAGNESIUM 6-01 mouth. ity of (PRILOSEC 19:24: [place] OTC ORAL) Medical Branch selexipag 0 Yes Take by Unive rs (UPTRAVI) 6- mouth. ity of 1,000 mcg 19:24: [place] [address] Medical Branch CITALOPRAM 2016-0 Yes Take by Univ ers HYDROBROMID 6-01 mouth. ity of E (CELEXA 19:24: [place] ORAL) Medical Branch CARVEDILOL 2016-0 Yes Take by Univ ers ORAL 6- mouth. ity of 19:24: [place] [address] [facility] Branch OMEPRAZOLE 2016-0 Yes Take by [facility] ers MAGNESIUM 6-01 mouth. ity of (PRILOSEC 19:24: [place] OTC ORAL) Medical Branch selexipag Yes Take by Unive rs (UPTRAVI) 6- mouth. ity of 1,000 mcg 19:24: [place] [facility] Branch CITALOPRAM 20160 Yes Take by Univ ers HYDROBROMID 6- mouth. ity of E (CELEXA 19:24: [place] ORAL) Medical Branch CARVEDILOL 2015-0 Yes Take by Univ ers ORAL 6- mouth. ity of 19:24: [place] [address] [facility] Branch OMEPRAZOLE 2016-0 Yes Take by [facility] ers MAGNESIUM 6-01 mouth. ity of (PRILOSEC 19:24: [place] OTC ORAL) Medical Branch selexipag Yes Take by Unive rs (UPTRAVI) 6 mouth. ity of 1,000 mcg 19:24: [place] [address] Medical Branch CITALOPRAM Yes Take by Univ ers HYDROBROMID 6- mouth. ity of E (CELEXA 19:24: [place] ORAL) Medical Branch CARVEDILOL 0 Yes Take by Univ ers ORAL 6- mouth. ity of 19:24: [place] [address] Medical Branch OMEPRAZOLE 0 Yes Take by [facility] ers MAGNESIUM 6-01 mouth. ity of (PRILOSEC 19:24: [place] OTC ORAL) Medical Branch selexipag 0 Yes Take by Unive rs (UPTRAVI) 6-01 mouth. ity of 1,000 mcg 19:24: [place] [address] Medical Branch CITALOPRAM 2016-0 Yes Take by Univ ers HYDROBROMID 6-01 mouth. ity of E (CELEXA 19:24: [place] ORAL) Medical Branch CARVEDILOL 2016-0 Yes Take by [facility] ers ORAL 6-01 mouth. ity of 19:24: [place] [address] [facility] Branch OMEPRAZOLE 2016-0 Yes Take by [...] ers ORAL 6 mouth. ity of 19:24: [place] [address] [facility] Branch OMEPRAZOLE 2016-0 Yes Take by [facility] ers MAGNESIUM 6-01 mouth. ity of (PRILOSEC 19:24: [place] OTC ORAL) 51 Medical Branch selexipag Yes Take by Unive rs (UPTRAVI) 6 mouth. ity of 1,000 mcg 19:24: [place] Tab 51 Medical Branch CITALOPRAM Yes Take by [facility] ers HYDROBROMID 6 mouth. ity of E (CELEXA 19:24: [place] ORAL) 51 Medical Branch CARVEDILOL Yes Take by Univ ers ORAL 6 mouth. ity of 19:24: [place] [address] [facility] Branch OMEPRAZOLE 2016 Yes Take by [facility] ers MAGNESIUM 6-01 mouth. ity of (PRILOSEC 19:24: [place] OTC ORAL) 51 Medical Branch selexipag Yes Take by Unive rs (UPTRAVI) 6 mouth. ity of 1,000 mcg 19:24: [place] Tab 51 [facility] Branch CITALOPRAM Yes Take by [facility] ers HYDROBROMID 6 mouth. ity of E (CELEXA 19:24: [place] ORAL) 51 Medical Branch CARVEDILOL 0 Yes Take by Univ ers ORAL 6 mouth. ity of 19:24: [place] [address] Medical Branch OMEPRAZOLE 2016-0 Yes Take by [...] Medical Branch CARVEDILOL 2016 Yes Take by [facility] ers ORAL 6 mouth. ity of 19:24: [place] [address] [facility] Branch OMEPRAZOLE 2016-0 Yes Take by [facility] ers MAGNESIUM 6-01 mouth. ity of (PRILOSEC 19:24: [place] OTC ORAL) Medical Branch selexipag [facility] 6 mouth. ity of 1,000 mcg 19:24: [place] Tab [facility] CITALOPRAM 20160 Yes Take by [facility] ers HYDROBROMID 6 mouth. ity of E (CELEXA 19:24: [place] ORAL) Medical Branch CARVEDILOL Yes Take by [facility] ers ORAL 6 mouth. ity of 19:24: [place] [address] [facility] Branch OMEPRAZOLE 20160 Yes Take by [facility] ers MAGNESIUM 6-01 mouth. ity of (PRILOSEC 19:24: [place] OTC ORAL) Medical Branch selexipag Yes Take by [facility] rs (UPTRAVI) 6 mouth. ity of 1,000 mcg 19:24: [place] [address] Medical Branch CITALOPRAM Yes Take by [facility] ers HYDROBROMID 6 mouth. ity of E (CELEXA 19:24: [place] ORAL) Medical Branch CARVEDILOL 0 Yes Take by [facility] ers ORAL 6- mouth. ity of 19:24: [place] [address] Medical Branch OMEPRAZOLE 0 Yes Take by [facility] ers MAGNESIUM 6-01 mouth. ity of (PRILOSEC 19:24: [place] OTC ORAL) 51 Medical Branch selexipag Yes Take by [facility] (UPTRAVI) 6 mouth. ity of 1,000 mcg 19:24: [place] [facility] Branch CITALOPRAM 20160 Yes Take by [facility] ers HYDROBROMID 6-01 mouth. ity of E (CELEXA 19:24: [place] ORAL) Medical Branch CARVEDILOL 20160 Yes Take by [facility] ers ORAL 6-01 mouth. ity of 19:24: [place] [address] Medical Branch OMEPRAZOLE 20160 Yes Take by [facility] ers MAGNESIUM 6-01 mouth. ity of (PRILOSEC [...] ers ORAL 6 mouth. ity of 19:24: [place] [address] Medical Branch OMEPRAZOLE 2016-0 Yes Take by [facility] ers MAGNESIUM 6-01 mouth. ity of (PRILOSEC 19:24: [place] OTC ORAL) 51 Medical Branch selexipag 2016-0 Yes Take by Unive rs (UPTRAVI) 6 mouth. ity of 1,000 mcg 19:24: [place] Tab [facility] CITALOPRAM 20160 Yes Take by Univ ers HYDROBROMID 6 mouth. ity of E (CELEXA 19:24: [place] ORAL) 51 Medical Branch CARVEDILOL 2015- Yes Take by [facility] ers ORAL 6 mouth. ity of 19:24: [place] [address] [facility] Branch OMEPRAZOLE 2016-0 Yes Take by [facility] ers MAGNESIUM 6-01 mouth. ity of (PRILOSEC 19:24: [place] OTC ORAL) 51 Medical Branch selexipag 0 Yes Take by Unive rs (UPTRAVI) 6 mouth. ity of 1,000 mcg 19:24: [place] Tab [facility] CITALOPRAM 0 Yes Take by [facility] ers HYDROBROMID 6 mouth. ity of E (CELEXA 19:24: [place] ORAL) 51 Medical Branch CARVEDILOL 2016-0 Yes Take by Univ ers ORAL 6 mouth. ity of 19:24: [place] [address] [facility] Branch OMEPRAZOLE 2016-0 Yes Take by [facility] ers MAGNESIUM 6-01 mouth. ity of (PRILOSEC 14:24: [place] OTC ORAL) 51 Medical Branch selexipag 0 Yes Take by Unive rs (UPTRAVI) 6 mouth. ity of 1,000 mcg 14:24: [place] [facility] Branch CITALOPRAM 2016-0 Yes Take by Univ ers HYDROBROMID 6-01 mouth. ity of E (CELEXA 14:24: [place] ORAL) 51 Medical Branch CARVEDILOL 2016-0 Yes Take by [facility] ers ORAL 6 mouth. ity of 14:24: [place] [address] [facility] [place] OMEPRAZOLE 2015-0 Yes Take by [facility] ers MAGNESIUM 08-08 mouth. ity of (PRILOSEC 14:24: [place] OTC ORAL) Medical Branch selexipag 0 Yes [facility] by [facility] (UPTRAVI) 6 mouth. ity of 1,000 mcg 14:24: [place] Tab Medical [facility] CITALOPRAM 0 Yes Take by [facility] ers HYDROBROMID 6 mouth. ity of E (CELEXA 14:24: [place] ORAL) Medical Branch CARVEDILOL Yes Take by [facility] ers ORAL 6 mouth. ity of 14:24: [address] Branch losartan Yes Univers (COZAAR) 50 3-20 ity of mg tablet 00:00: [place] [address] Medical Branch losartan 0 Yes Univers (COZAAR) 50 3-20 ity of mg tablet 00:00: [place] [address] Medical Branch losartan 0 Yes Univers (COZAAR) 50 3-20 ity of mg tablet 00:00: [place] [address] Medical Branch losartan Yes Univers (COZAAR) 50 3-20 ity of mg tablet 00:00: [place] [address] Medical Branch losartan 0 Yes Univers (COZAAR) 50 3-20 ity of mg tablet 00:00: [place] [address] Medical Branch losartan 2015-0 Yes Univers (COZAAR) 50 3-20 ity of mg tablet 00:00: Medical Branch losartan 2015-0 Yes Univers (COZAAR) 50 3-20 ity of mg tablet 00:00: Medical Branch losartan Yes Univers (COZAAR) 50 3-20 ity of mg tablet 00:00: [place] [facility] losartan 2015-0 Yes Univers (COZAAR) 50 3-20 ity of mg tablet 00:00: Medical Branch losartan 2015-0 Yes Univers (COZAAR) 50 3-20 ity of mg tablet 00:00: Medical Branch losartan 0 Yes Univers (COZAAR) 50 3-20 ity of mg tablet 00:00: Medical Branch losartan 2015- Yes Univers (COZAAR) 50 3-20 ity of [...] ity of mg tablet 00:00: Medical Branch CeleXA 20 CeleXA 20 No 1{table QD [...] MG MG MG Gabapentin Gabapentin No Gabapentin Iron Iron No Iron Valsartan Valsartan No Valsartan Atorvastati Atorvastati No 1{table QD Atorvastat n Calcium n Calcium t} in Calcium 20 MG 20 MG 20 MG amLODIPine- amLODIPine- No amLODIPine Olmesartan Olmesartan -Olmesarta 5-20 MG 5-20 MG n 5-20 MG Hydrocodone Hydrocodone No Hydrocodon Bitartrate Bitartrate e Bitartrate Citalopram Citalopram No Citalopram Hydrobromid Hydrobromid Hydrobromi e 20 MG e 20 MG de 20 MG Gabapentin Gabapentin No Gabapentin Lyrica 100 Lyrica 100 No 1{capsu BID Lyrica 100 MG MG le} MG amLODIPine- amLODIPine- No amLODIPine Olmesartan Olmesartan -Olmesarta 5-20 MG 5-20 MG n 5-20 MG HYDROcodone HYDROcodone No HYDROcodon -Acetaminop -Acetaminop e-Acetamin hen hen ophen Meloxicam Meloxicam No 1{table QD Meloxicam 7.5 MG 7.5 MG t} 7.5 MG Calcium Calcium No Calcium Omeprazole Omeprazole No QD Omeprazole 40 MG 40 MG 40 MG Iron Iron No Iron Valsartan Valsartan No Valsartan Atorvastati Atorvastati No 1{table QD Atorvastat n Calcium n Calcium t} in Calcium 20 MG 20 MG 20 MG amLODIPine- amLODIPine- No amLODIPine Olmesartan Olmesartan -Olmesarta 5-20 MG 5-20 MG n 5-20 MG Hydrocodone Hydrocodone No Hydrocodon Bitartrate Bitartrate e Bitartrate Citalopram Citalopram No Citalopram Hydrobromid Hydrobromid Hydrobromi e 20 MG e 20 MG de 20 MG Gabapentin Gabapentin No Gabapentin Lyrica 100 Lyrica 100 No 1{capsu BID Lyrica 100 MG MG le} MG amLODIPine- amLODIPine- No amLODIPine Olmesartan Olmesartan -Olmesarta 5-20 MG 5-20 MG n 5-20 MG HYDROcodone HYDROcodone No HYDROcodon -Acetaminop -Acetaminop e-Acetamin hen hen ophen Meloxicam Meloxicam No 1{table QD Meloxicam 7.5 MG 7.5 MG t} 7.5 MG Calcium Calcium No Calcium Omeprazole Omeprazole No QD Omeprazole 40 MG 40 MG 40 MG Iron Iron No Iron Valsartan Valsartan No Valsartan Atorvastati Atorvastati No 1{table QD Atorvastat n Calcium n Calcium t} in Calcium 20 MG 20 MG 20 MG amLODIPine- amLODIPine- No amLODIPine Olmesartan Olmesartan -Olmesarta 5-20 MG 5-20 MG n 5-20 MG Hydrocodone Hydrocodone No Hydrocodon Bitartrate Bitartrate e Bitartrate Citalopram Citalopram No Citalopram Hydrobromid Hydrobromid Hydrobromi e 20 MG e 20 MG de 20 MG Gabapentin Gabapentin No Gabapentin Lyrica 100 Lyrica 100 No 1{capsu BID Lyrica 100 MG MG le} MG amLODIPine- amLODIPine- No amLODIPine Olmesartan Olmesartan -Olmesarta 5-20 MG 5-20 MG n 5-20 MG HYDROcodone HYDROcodone No HYDROcodon -Acetaminop -Acetaminop e-Acetamin hen hen ophen Meloxicam Meloxicam No 1{table QD Meloxicam 7.5 MG 7.5 MG t} 7.5 MG Calcium Calcium No Calcium Omeprazole Omeprazole No QD Omeprazole 40 MG 40 MG 40 MG Celexa Celexa Yes Na Perez 1 tablet Comm on [facility] Baclofen Baclofen Yes Na Perez as Comm on directed [facility] Prilosec Prilosec Yes Na Perez 1 capsule Common 30 minutes Spirit before - [facility] morning meal [facility] Ambien Ambien Yes Na Perez TAKE 1 Common TABLET BY Spirit MOUTH - [facility] EVERY DAY St AT BEDTIME [facility] NEEDED Medical [place] Amlodipine- Amlodipine- Yes Na Perez 1 tablet Common Olmesartan Olmesartan Spi [facility] Ambien 10 Ambien 10 No 1{table QD [...] 10 No Ambien 10 MG MG MG Vital Signs Vital Name Observation Time Observation Value Comments Source Systolic blood 2022-08-18 20:45:00 131 mm[Hg] Univer sity of pressure [facility] Diastolic blood 2022-08-18 20:45:00 57 mm[facility]Hg] [facility] Heart rate 2022-08-18 20:45:00 83 /min [facility] Body temperature 2022-08-18 20:45:00 37.11 [facility] [place] Res[facility] rate 2022-08-18 20:45:00 16 /min [facility] [place] Body height 2022-08-18 20:45:00 156.2 cm [facility] Body weight 2022-08-18 20:45:00 83.915 kg [facility] BMI 2022-08-18 20:45:00 34.39 kg/m2 [facility] Oxygen saturation in 2022-08-18 20:45:00 97 /min [facility] blood by [facility] Pulse oximetry Branch height 2022-04-22 10:00:00 61.50 [in_i] Common [facility] weight 2022-04-22 10:00:00 190 [lb_av] Common [facility] bmi 2022-04-22 10:00:00 35.31 kg/m2 Common [facility] blood pressure 2022-04-22 10:00:00 105 mm[Hg] Common [facility] - systolic [facility] blood pressure 2022-04-22 10:00:00 55 mm[Hg] Common [facility] - diastolic [facility] height 2021-12-21 14:40:00 61.50 [in_i] Common [facility] weight 2021-12-21 14:40:00 190.8 [lb_av] [facility] temperature 2021-12-21 14:40:00 97.8 [degF] Common [facility] bmi 2021-12-21 14:40:00 35.46 kg/m2 [facility] oximetry 2021-12-21 14:40:00 97 % [facility] respiratory rate 2021-12-21 14:40:00 18 /min Comm on [facility] blood pressure 2021-12-21 14:40:00 130 mm[Hg] Common [facility] - systolic [facility] blood pressure 2021-12-21 14:40:00 60 mm[Hg] Common [facility] - diastolic [facility] height 2021-11-05 10:30:00 61.50 [in_i] Common [facility] weight 2021-11-05 10:30:00 188.4 [lb_av] Common [facility] - [facility] temperature 2021-11-05 10:30:00 98 [degF] Common [facility] bmi 2021-11-05 10:30:00 35.02 kg/m2 [facility] oximetry 2021-11-05 10:30:00 99 % [facility] respiratory rate 2021-11-05 10:30:00 18 /min Comm on [facility] blood pressure 2021-11-05 10:30:00 130 mm[Hg] Common [facility] - systolic [facility] blood pressure 2021-11-05 10:30:00 62 mm[Hg] Common [facility] - diastolic [facility] height 2021-09-20 13:00:00 61.50 [in_i] [facility] weight 2021-09-20 13:00:00 182 [lb_av] [facility] bmi 2021-09-20 13:00:00 33.83 kg/m2 [facility] blood pressure 2021-09-20 13:00:00 118 mm[Hg] Common [facility] - systolic [facility] blood pressure 2021-09-20 13:00:00 68 mm[Hg] Common [facility] - diastolic [facility] height 2021-08-14 13:20:00 61.50 [in_i] Common [facility] weight 2021-08-14 13:20:00 184 [lb_av] Common [facility] temperature 2021-08-14 13:20:00 97.3 [degF] [facility] bmi 2021-08-14 13:20:00 34.2 kg/m2 [facility] oximetry 2021-08-14 13:20:00 96 % [facility] respiratory rate 2021-08-14 13:20:00 20 /min Comm on [facility] blood pressure 2021-08-14 13:20:00 114 mm[Hg] Common [facility] - systolic [facility] blood pressure 2021-08-14 13:20:00 57 mm[Hg] Common [facility] - diastolic [facility] height 2021-07-30 13:00:00 61.50 [in_i] Common [facility] - [facility] weight 2021-07-30 13:00:00 185.6 [lb_av] Common [facility] - [facility] temperature 2021-07-30 13:00:00 97.2 [degF] Common S [facility] bmi 2021-07-30 13:00:00 34.5 kg/m2 Common S [facility] oximetry 2021-07-30 13:00:00 97 % [facility] S [facility] respiratory rate 2021-07-30 13:00:00 16 /min Comm on [facility] - [facility] blood pressure 2021-07-30 13:00:00 125 mm[Hg] Common [facility] - systolic [facility] blood pressure 2021-07-30 13:00:00 63 mm[Hg] Common [facility] - diastolic [facility] height 2021-06-28 10:30:00 61.50 [in_i] Common S [facility] weight 2021-06-28 10:30:00 189 [lb_av] Common [facility] bmi 2021-06-28 10:30:00 35.13 kg/m2 Common S pirit - [facility] blood pressure 2021-06-28 10:30:00 124 mm[Hg] Common [facility] - systolic [facility] blood pressure 2021-06-28 10:30:00 74 mm[Hg] Common [facility] - diastolic [facility] height 2021-05-01 13:20:00 61.50 [in_i] Common [facility] weight 2021-05-01 13:20:00 188.8 [lb_av] Common [facility] temperature 2021-05-01 13:20:00 96.4 [degF] Common S pirit - [facility] bmi 2021-05-01 13:20:00 35.09 kg/m2 Common S pirit - [facility] oximetry 2021-05-01 13:20:00 97 % Common S pirit - [facility] respiratory rate 2021-05-01 13:20:00 16 /min Comm on [facility] - [facility] blood pressure 2021-05-01 13:20:00 120 mm[Hg] Common [facility] - systolic [facility] blood pressure 2021-05-01 13:20:00 74 mm[Hg] Common [facility] - diastolic [facility] Body height 2019-06-10 12:54:00 157.5 cm [facility] Body weight 2019-06-10 12:54:00 86.183 kg [facility] BMI 2019-06-10 12:54:00 34.75 kg/m2 [facility] Body height 2019-06-10 12:54:00 157.5 cm [facility] Body weight 2019-06-10 12:54:00 86.183 kg [facility] BMI 2019-06-10 12:54:00 34.75 kg/m2 [facility] Body height 2019-05-13 16:13:00 157.5 cm [facility] Body weight 2019-05-13 16:13:00 86.183 kg [facility] BMI 2019-05-13 16:13:00 34.75 kg/m2 [facility] Body height 2019-05-11 19:33:00 157.5 cm [facility] Body weight 2019-05-11 19:33:00 86.183 kg [facility] BMI 2019-05-11 19:33:00 34.75 kg/m2 [facility] Systolic blood 2019-03-30 19:18:00 162 mm[Hg] Univer sity of pressure [facility] Diastolic blood 2019-03-30 19:18:00 84 mm[Hg] Unive rsity of pressure [facility] Heart rate 2019-03-30 19:18:00 76 /min [facility] [place] [facility] Body height 2019-03-30 19:12:00 157.5 cm [facility] [place] [facility] Body weight 2019-03-30 19:12:00 86.183 kg [facility] [place] [facility] BMI 2019-03-30 19:12:00 34.75 kg/m2 [facility] [place] [facility] Systolic blood 2019-03-23 19:07:00 130 mm[Hg] Univer sity of pressure [place] [facility] Diastolic blood 2019-03-23 19:07:00 75 mm[Hg] Unive rsity of pressure [place] [facility] Body height 2019-03-23 19:07:00 157.5 cm [facility] [place] [facility] Body weight 2019-03-23 19:07:00 86.183 kg [facility] [place] [facility] BMI 2019-03-23 19:07:00 34.75 kg/m2 [facility] Systolic blood 2018-11-27 15:19:00 116 mm[Hg] Univer sity of pressure [place] [facility] Diastolic blood 2018-11-27 15:19:00 67 mm[Hg] Unive rsity of pressure [place] [facility] Body height 2018-11-27 15:19:00 157.5 cm [facility] [place] [facility] Body weight 2018-11-27 15:19:00 86.183 kg [facility] [place] [facility] BMI 2018-11-27 15:19:00 34.75 kg/m2 [facility] [place] [facility] Systolic blood 2018-11-26 19:18:00 108 mm[Hg] Univer sity of pressure [place] [facility] Diastolic blood 2018-11-26 19:18:00 68 mm[Hg] Unive rsity of pressure [place] [facility] Body height 2018-11-26 19:18:00 157.5 cm [facility] [place] [facility] Body weight 2018-11-26 19:18:00 86.183 kg [facility] [place] [facility] BMI 2018-11-26 19:18:00 34.75 kg/m2 [facility] [place] [facility] Systolic blood 2018-11-20 01:12:00 150 mm[Hg] Univer sity of pressure [place] [facility] Diastolic blood 2018-11-20 01:12:00 86 mm[Hg] Unive rsity of pressure [facility] Heart rate 2018-11-20 01:12:00 86 /min [facility] Body temperature 2018-11-20 01:12:00 36.83 Mitra [facility] Respiratory rate 2018-11-20 01:12:00 18 /min [facility] Body height 2018-11-20 01:12:00 157.5 cm [facility] weight 2018-11-20 01:12:00 86.183 kg [facility] BMI 2018-11-20 01:12:00 34.75 kg/m2 [facility] Oxygen saturation in 2018-11-20 01:12:00 98 /min [facility] Arterial blood by [facility] Pulse oximetry Branch BMI Calculated 2017-03-12 22:05:00 Karishma al Renny Weight 2017-03-12 22:05:00 [facility] Height 2017-03-12 22:05:00 158.75 cm [facility] Temperature Oral (F) 2017-03-12 22:05:00 97.8 F [facility] Heart Rate 2017-03-12 22:05:00 [facility] Systolic (mm Hg) 2017-03-12 22:05:00 Richy rial [place] Diastolic (mm Hg) 2017-03-12 22:05:[address] [facility] orial Renny Procedures Procedure Date / Time Performing Clinician Source Performed ASSIGNMENT OF BENEFITS 2022-08-18 20:37:56 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, No [facility] XR CHEST 1 VW 2019-05-19 16:40:22 Elena Espino [facility] ASSIGNMENT OF BENEFITS 2019-05-19 15:54:41 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, No [facility] MR KNEE LEFT WO 2019-05-11 20:16:34 Elena Espino [facility] UNILATERAL VENOUS 2018-11-26 21:45:02 Chau Solano [facility] DUPLEX LOWER EXTREMITY Medical [place] ranch BY VASCULAR LAB NOTICE OF PRIVACY 2018-11-26 20:46:54 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, No [facility] PRACTICES [facility] CONSENT/REFUSAL FOR 2018-11-26 20:46:39 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, No [facility] DIAGNOSIS AND TREATMENT [facility] Medical [place] ASSIGNMENT OF BENEFITS 2018-11-26 20:46:20 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, No [facility] Name Medical Branch D-DIMER 2018-11-20 01:33:00 Louie Jerez [facility] NOTICE OF PRIVACY 2018-11-20 01:09:41 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, No [facility] Name Medical Branch CONSENT/REFUSAL FOR 2018-11-20 01:05:31 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, No [facility]REAT[facility] Bladder operation [facility] Hyste[facility] [place] Operation [facility] Encounters Start End Encounter Admission Attending Care Care Encounter Source Date/Time Date/Time Type Type Clinicians Facility Department ID 2022-08-08 Outpatient STLMLC STLMLC [id number] Common 14:47:00 [id number] [facility] 2022-05-17 Outpatient Destiny, STLMLC STLMLC [id number] Common 11:41:01 Ashwini [id number] [facility] 2022-04-15 Outpatient PEREZ, Na STLMLC STLMLC [id number] 2 Common 10:24:01 [id number] [facility] 2021-12-26 Outpatient Perez, Na STLMLC STLMLC [id number] 2 Common 08:19:01 [facility] 2021-12-14 Outpatient Perez, Na STLMLC STLMLC [id number] 2 Common 08:58:01 [facility] 2021-08-07 Outpatient Perez, Na STLMLC STLMLC [id number] 2 Common 10:29:01 [facility] 2021-07-26 Outpatient Perez, Na STLMLC STLMLC [id number] 2 Common 08:45:01 [facility] 2021-06-27 Outpatient Perez, Na STLMLC STLMLC [id number] 2 Common 14:40:02 [facility] 2021-04-04 Outpatient Perez, Na STLMLC STLMLC [id number] 2 Common 13:35:08 [facility] 2021-04-04 Outpatient Perez, Na STLMLC STLMLC [id number] 2 Common 13:13:45 [id number] [facility] 2021-04-04 Outpatient Perez, Na STLMLC STLMLC [id number] 2 Common 13:04:57 [id number] [facility] 2021-04-04 Outpatient Perez, Na STLMLC STLMLC [id number] 2 Common 13:00:30 [id number] [facility] 2021-04-04 Outpatient Perez, Na STLMLC STLMLC [id number] 2 Common 12:59:52 [id number] [facility] 2021-04-04 Outpatient Perez, Na STLMLC STLMLC [id number] 2 Common 12:51:20 [id number] [facility] 2021-04-04 Outpatient Perez, Na STLMLC STLMLC [id number] 2 Common 12:02:27 [id number] [facility] 2021-04-04 Outpatient Perez, Na STLMLC STLMLC [id number] 2 Common 12:01:03 [id number] [facility] 2021-04-04 Outpatient Perez, Na STLMLC STLMLC [id number] 2 Common 11:33:49 [id number] [facility] 2021-04-04 Outpatient Perez, Na STLMLC STLMLC [id number] 2 Common 11:33:44 [id number] [facility] 2021-04-04 Outpatient Perez, Na STLMLC STLMLC [id number] 2 Common 11:17:12 [id number] [facility] 2022-08-18 2022-08-18 Outpatient R GI [facility] [id number] Univers 15:40:00 16:08:36 BRYNN maria [facility] 2022-08-18 2022-08-18 Urgent Brynn Brooks [facility] [id number] Univers 15:40:00 16:08:36 Care Unknown, Attending HEALTH [id number] ity [facility] 4.2.7.2.686 Chance as JOSE M?BLEA [phone] In dical KNEY [address] MEDICAL OFFICE BUILDING 2022-08-18 2022-08-18 Orders Doctor DOLLY [id number] Univers 00:00:00 00:00:00 Only Unassigned, JAYDEN 350.1.13.10 ity of [place] [facility] 4.2.7.2.686 Chance as [phone] [address] 2022-04-24 2022-04-24 (TEL) STLMLC STLMLC [id number] Co mmon 00:00:00 00:00:00 [facility] 2022-04-22 2022-04-22 (ESTPT) STLMLC STLMLC [id number] Co mmon 00:00:00 00:00:00 Karthik bo [facility] 2022-04-17 2022-04-17 (TEL) STLMLC STLMLC [id number] Co mmon 00:00:00 00:00:00 [facility] 2022-02-04 2022-02-04 (TEL) STLMLC STLMLC [id number] Co mmon 00:00:00 00:00:00 [facility] 2022-01-03 2022-01-03 (WEB) STLMLC STLMLC [id number] Co mmon 00:00:00 00:00:00 [facility] 2022-01-02 2022-01-02 (TEL) STLMLC STLMLC [id number] Co mmon 00:00:00 00:00:00 [facility] 2022-01-01 2022-01-01 (WEB) STLMLC STLMLC [id number] Co mmon 00:00:00 00:00:00 [facility] 2021-12-26 2021-12-26 (WEB) STLMLC STLMLC [id number] Co mmon 00:00:00 00:00:00 [facility] 2021-12-21 2021-12-21 OFFICE STLMLC STLMLC [id number] Co mmon 00:00:00 00:00:00 VISIT EST Spir it PT LEVEL 3 - [facility] 2021-11-15 2021-11-15 (WEB) STLMLC STLMLC [id number] Co mmon 00:00:00 00:00:00 [facility] 2021-11-05 2021-11-05 OFFICE STLMLC STLMLC [id number] Co mmon 00:00:00 00:00:00 VISIT NEW Spir it PT LEVEL 2 - [facility] 2021-10-17 2021-10-17 (TEL) STLMLC STLMLC [id number] Co mmon 00:00:00 00:00:00 [facility] 2021-10-02 2021-10-02 (WEB) STLMLC STLMLC [id number] Co mmon 00:00:00 00:00:00 [facility] 2021-09-28 2021-09-28 (WEB) STLMLC STLMLC [id number] Co mmon 00:00:00 00:00:00 [facility] 2021-09-26 2021-09-26 (TEL) STLMLC STLMLC [id number] Co mmon 00:00:00 00:00:00 [facility] 2021-09-24 2021-09-24 (TEL) STLMLC STLMLC [id number] Co mmon 00:00:00 00:00:00 [facility] 2021-09-20 2021-09-20 OFFICE STLMLC STLMLC [id number] Co mmon 00:00:00 00:00:00 VISIT EST Spir it PT LEVEL 3 - [facility] 2021-09-05 2021-09-05 (TEL) STLMLC STLMLC [id number] Co mmon 00:00:00 00:00:00 [facility] 2021-09-02 2021-09-02 (WEB) STLMLC STLMLC [id number] Co mmon 00:00:00 00:00:00 [facility] 2021-09-02 2021-09-02 (TEL) STLMLC STLMLC [id number] Co mmon 00:00:00 00:00:00 [facility] 2021-08-15 2021-08-15 (TEL) STLMLC STLMLC [id number] Co mmon 00:00:00 00:00:00 [facility] 2021-08-14 2021-08-14 OFFICE STLMLC STLMLC [id number] Co mmon 00:00:00 00:00:00 VISIT EST Spir it PT LEVEL 3 - [facility] 2021-08-03 2021-08-03 (TEL) STLMLC STLMLC [id number] Co mmon 00:00:00 00:00:00 [facility] 2021-08-02 2021-08-02 (WEB) STLMLC STLMLC [id number] Co mmon 00:00:00 00:00:00 [facility] 2021-07-30 2021-07-30 OFFICE STLMLC STLMLC [id number] Co mmon 00:00:00 00:00:00 VISIT [facility] PT - [facility] LEVEL 4 [facility] 2021-07-24 2021-07-24 (TEL) STLMLC STLMLC [id number] Co mmon 00:00:00 00:00:00 [facility] 2021-07-19 2021-07-19 (TEL) STLMLC STLMLC [id number] Co mmon 00:00:00 00:00:00 [facility] 2021-07-17 2021-07-17 (TEL) STLMLC STLMLC [id number] Co mmon 00:00:00 00:00:00 [facility] 2021-07-13 2021-07-13 (TEL) STLMLC STLMLC [id number] Co mmon 00:00:00 00:00:00 [facility] 2021-06-29 2021-06-29 (WEB) STLMLC STLMLC [id number] Co mmon 00:00:00 00:00:00 [facility] 2021-06-28 2021-06-28 OFFICE STLMLC STLMLC [id number] Co mmon 00:00:00 00:00:00 VISIT NEW Spir it PT LEVEL 3 - [facility] 2021-06-02 2021-06-02 (WEB) STLMLC STLMLC [id number] Co mmon 00:00:00 00:00:00 [facility] 2021-05-01 2021-05-01 OFFICE STLMLC STLMLC [id number] Co mmon 00:00:00 00:00:00 VISIT [facility] PT - CHI LEVEL 4 [facility] 2021-04-03 2021-04-03 (WEB) STLMLC STLMLC [id number] Co mmon 00:00:00 00:00:00 [facility] 2021-03-22 2021-03-22 (TEL) STLMLC STLMLC [id number] Co mmon 00:00:00 00:00:00 [facility] 2021-03-22 2021-03-22 (TEL) STLMLC STLMLC [id number] Co mmon 00:00:00 00:00:00 [facility] 2021-02-08 2021-02-08 (TEL) STLMLC STLMLC [id number] Co mmon 00:00:00 00:00:00 [facility] 2021-01-31 2021-01-31 (TEL) STLMLC STLMLC [id number] Co mmon 00:00:00 00:00:00 [facility] 2021-01-31 2021-01-31 OL DIG E/M STLMLC STLMLC [id number] Common 00:00:00 00:00:00 [facility] 11-20 Spir it MIN [facility] 2020-11-24 2020-11-24 (TEL) STLMLC STLMLC [id number] Co mmon 00:00:00 00:00:00 [facility] 2020-11-16 2020-11-16 (TEL) STLMLC STLMLC [id number] Co mmon 00:00:00 00:00:00 [facility] 2020-10-13 2020-10-13 Outpatient STLMLC STLMLC [id number] Common 00:00:00 00:00:00 [facility] 2020-10-09 2020-10-09 Outpatient STLMLC STLMLC [id number] Common 00:00:00 00:00:00 [facility] 2020-08-18 2020-08-18 Outpatient STLMLC STLMLC [id number] Common 00:00:00 00:00:00 [facility] 2020-08-17 2020-08-17 Outpatient STLMLC STLMLC [id number] Common 00:00:00 00:00:00 [facility] 2020-08-14 2020-08-14 Outpatient STLMLC STLMLC [id number] Common 00:00:00 00:00:00 [facility] 2020-07-26 2020-07-26 Outpatient STLMLC STLMLC [id number] Common 00:00:00 00:00:00 [facility] 2020-07-26 2020-07-26 Outpatient STLMLC STLMLC [id number] Common 00:00:00 00:00:00 [facility] 2020-07-13 2020-07-13 Outpatient STLMLC STLMLC [id number] Common 00:00:00 00:00:00 [facility] 2020-06-22 2020-06-22 Outpatient STLMLC STLMLC [id number] Common 00:00:00 00:00:00 [facility] 2020-03-15 2020-03-15 Outpatient STLMLC STLMLC [id number] Common 00:00:00 00:00:00 [facility] 2020-01-14 2020-01-14 Outpatient STLMLC STLMLC [id number] Common 00:00:00 00:00:00 [facility] 2019-11-30 2019-11-30 Outpatient STLMLC STLMLC [id number] Common 00:00:00 00:00:00 [facility] 2019-11-16 2019-11-16 [facility] [id number] Common 15:00:00 15:00:[address] [facility] 2019-11-05 2019-11-05 Out[facility] [id number] Common 09:21:00 09:21:[address] [facility] 2019-10-29 2019-10-29 [facility] [id number] Common 11:34:00 11:34:[address] [facility] 2019-10-29 2019-10-29 [facility] [id number] Common 10:00:00 10:00:[address] [facility] 2019-10-28 2019-10-28 [facility] [id number] Common 14:09:00 14:09:[address] [facility] 2019-10-11 2019-10-11 [facility] [id number] Common 15:20:00 15:20:[address] [facility] 2019-10-07 2019-10-07 [facility] [id number] Common 10:56:00 10:56:[address] [facility] [address] Spir [address] Road [facility] 2019-10-07 2019-10-07 [facility] [id number] Common 10:00:00 10:00:[address] [facility] 2019-10-06 2019-10-06 [facility] [id number] Common 15:33:00 15:33:[address] [facility] 2019-10-06 2019-10-06 [facility] [id number] Common 13:46:00 13:46:[address] [facility] 2019-09-30 2019-09-30 [facility] [id number] Common 10:09:00 10:09:[address] [facility] 2019-08-29 2019-08-29 [facility] [id number] Common 03:04:00 03:04:[address] [facility] 2019-08-26 2019-08-26 [facility] [id number] Common 02:31:00 02:31:[address] [facility] 2019-08-16 2019-08-16 [facility] [id number] Common 08:05:00 08:05:[address] [facility] 2019-08-13 2019-08-13 Out[facility] [id number] Common 13:00:00 13:00:[address] [facility] 2019-08-13 2019-08-13 [facility] [id number] Common 13:00:00 13:00:[address] [facility] 2019-06-10 2019-06-10 Office [facility] [id number] [facility] 07:53:05 08:11:21 Visit Elena Reed [facility] [id number] it y of Surgical 4.2.7.2.686 Hcance as Specialti [id number] In dical [address] 2019-06-10 2019-06-10 Office [facility] [id number] 07:53:05 08:11:21 Visit Elena Reed [facility] [id number] Surgical 4.2.7.2.686 Specialti [id number] [address] 2019-06-10 2019-06-10 [facility] [id number] Univers 08:00:00 08:00:00 ELENA maria [facility] 2019-06-10 2019-06-10 [facility]phone [facility] 1.2.840.114 [id number] Univers 00:00:00 00:00:00 Elena Reed [facility] 350.1.13.10 it y of Surgical 4.2.7.2.686 Chance as Specialti [id number] Me dical es 198 [facility] 2019-06-10 2019-06-10 [facility]phone [facility] 1.2.840.114 [id number] 00:00:00 00:00:00 Elena Hernández 350.1.13.10 Surgical 4.2.7.2.686 Specialti [id number] es 198 [place] 2019-06-09 2019-06-09 Outpatient Marshal [facility] [id number] Univers 13:15:00 13:15:00 CHAU ity [facility] 2019-06-07 2019-06-07 Outpatient Marshal [facility] [id number] Univers 13:30:00 13:30:00 CHAU ity [facility] 2019-06-04 2019-06-04 Outpatient Marshal [facility] [id number] Univers 09:00:00 09:00:00 [facility] 2019-06-03 2019-06-03 Outpatient Marshal [facility] [id number] Univers 09:15:00 09:15:00 CHAU ity [facility] 2019-05-26 2019-05-26 [facility] Srinivas [facility] 1.2.840.114 [id number] Univers 11:59:34 23:59:00 Encounter Elena BORJAS 350.1.13.10 [place] [id number] [address] 2019-05-26 2019-05-26 [facility] [id number] Univers 00:00:00 00:00:00 [facility] 2019-05-26 2019-05-26 Telephone [facility] [id number] Univers 00:00:00 00:00:00 Chau [facility] 350.1.13.10 it y of Surgical 4.2.7.2.686 Chance as Specialti [id number] Me dical es 198 [facility] 2019-05-19 2019-05-19 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, 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 Main [facility] [id number] [id number] Univers 11:06:52 11:21:52 Visit Elena Espino 350.1.13.10 ity of [place].2.[place] Profess[place] [phone] In dical nal 353 [facility] 2019-05-19 2019-05-19 Outpatient R SRINIVAS [facility] [id number] [facility] 11:07:51 11:14:00 ELENA ity [facility] 2019-05-19 2019-05-19 [facility] 1.2.840.114 [id number] Univers 11:00:00 11:14:00 Encounter Elena Garcia 350.1.13.10 ity of [place] [id number] [facility] [address] 2019-05-19 2019-05-19 Orders Doctor DOLLY 1.2.840.114 [id number] Univers 00:00:00 00:00:00 Only Unassigned, JAYDEN 350.1.13.10 ity of [place] [facility] 4.2.7.2.686 Chance as [id number] [facility] [address] 2019-05-17 2019-05-17 Telephone [facility] 1.2.840.114 [id number] Univers 00:00:00 00:00:00 Elena Hernández 350.1.13.10 it y of Surgical 4.2.7.2.686 Chance as Specialti [id number] In dical es 198 [facility] 2019-05-13 2019-05-13 Office [facility] [id number] Univers 10:05:58 14:22:17 Visit Elena Hernández 350.1.13.10 it y of Surgical 4.2.7.2.686 Chance as Specialti [id number] Me dical es 198 [facility] 2019-05-13 2019-05-13 Outpatient R [facility]INIV[facility] [id number] Univers 10:30:00 10:30:00 ELENA rousecarlos [facility] 2019-05-11 2019-05-11 Outpatient [facility] [id number] Univers 11:50:30 23:59:00 ELENA ity [facility] 2019-05-11 2019-05-11 [facility] 1.2.840.114 [id number] Univers 11:50:00 23:59:00 Encounter Elenakalie [place] 350.1.13.10 ity of [place] 4.2.7.2.686 [facility] [id number] [facility] [address] 2019-04-27 2019-04-27 Telephone [facility] [id number] Univers 00:00:00 00:00:00 Chau S [facility] 350.1.13.10 it y of Surgical 4.2.7.2.686 Chance as Specialti [id number] Me dical es 198 [facility] 2019-03-30 2019-03-30 Office [facility] 1.2.840.114 [id number] Univers 13:10:27 13:25:27 Visit [facility] 350.1.13.10 it y of Surgical 4.2.7.2.686 Chance as Specialti [id number] Me dical es 198 [facility] 2019-03-23 2019-03-23 Office [facility] 1.2.840.114 [id number] Univers 13:05:56 13:27:49 Visit [facility] 350.1.13.10 it y of Surgical 4.2.7.2.686 Chance as Specialti [id number] In dical es 198 [facility] 2018-11-27 2018-11-27 Office [facility] 1.2.840.114 [id number] Univers 10:18:07 10:41:45 Visit [facility] 350.1.13.10 it y of Surgical 4.2.7.2.686 Chance as Specialti [id number] In dical es 198 [facility] 2018-11-26 2018-11-26 [facility] Elena Espino [facility] 1.2.840 .114 [id number] Univers 15:54:44 23:59:00 Encounter Stacy, [facility] [place] 3 50.1.13.10 ity of [place] 4.2.7.2.686 [facility] [id number] [facility] [address] 2018-11-26 2018-11-[address] [facility] 1.2.840.114 [id number] [facility] 14:40:06 15:53:00 Encounter Chau Melendez [facility] 350.1.13.10 ity of Surgical 4.2.7.2.686 Chance as Specialti [id number] In dical es 809 [facility] 2018-11-26 2018-11-26 Office Sweetie [facility] 1.2.840.114 [id number] [facility] 14:04:15 15:34:29 Visit Chau Melendez [facility] 350.1.13.10 it y of Surgical 4.2.7.2.686 Chance as Specialti [id number] In dical es 198 [facility] 2018-11-19 2018-11-19 Emergency [facility] [id number] [facility] 20:24:29 21:34:00 Louie A [place] 350.1.13.10 i ty of [place] 4[place]2.[place].2.[place] [id number] [facility] [address] 2017-03-12 2017-03-13 Outpatient nullFlavo [facility] [id number] Memoria 13:45:00 05:59:59 r Clinic [facility] 00 [facility] 2017-03-11 2017-03-13 Phone nullFlavo [facility] [id number] Memoria 15:25:00 05:59:59 Message r [facility] 04 [facility] 2017-03-12 2017-03-12 Outpatient Morris Bergman MISCHER MISCHER [id number] 07:45:00 23:59:59 Hwan 00 2017-03-11 2017-03-12 Outpatient MHMISCHER MHMISCHER [id number] 09:25:00 23:59:59 04 2017-03-12 2017-03-12 Outpatient FLY BILL [id number] Memoria 07:45:00 07:45:00 00 [facility] Results Test Test Test Results Result Source Description Time Comments Comments XR CHEST 1 VW 2019-05- HISTORY: Preop. Univer sity of 11 FINDINGS: ?AP view of Chance as Medical 16:46:19 the chest showed upper Br anch normal appearance of thecardiomediastinal silhouette. No acute pneumonia, pleural effusion,pulmonary congestion detected. Lower cervical ACDF surgical changes noted. CONCLUSIONS: No signs of acute cardiopulmonary disease. [facility] [[email or web address] Radiant Results Inft User - 05/19/2019 11:47 AM CDTHISTORY: Preop.FINDINGS: AP view of the chest showed upper normal appearance of thecardiomediastinal silhouette. No acute pneumonia, pleural effusion,pulmonary congestion detected. Lower cervical ACDF surgical changes noted.CONCLUSIONS: No signs of acute cardiopulmonary disease. MR KNEE LEFT WO 2019-05- HISTORY: ?Pain in the University of CONTRAST 03 left knee and left knee [facility] 20:23:06 catches and pops. Branch TECHNIQUE: [...] of medial meniscusextending into the body portion. [facility] [[email or web address]], Radiant Results Inft User - 05/11/2019 2:24 [...] the body portion. CHEST 2 VIEWS 2018-12- [address] 10:09:00 [place] [address] Patient Name: BLANKA KURTZ MR #: [id number] : 1945 Age/Sex: 73/F Req #: [id number] Adm Physician: Ordered by: SILVIA CM MD Report #: [id number] Location: OR Room/Bed: ___ Procedure: [id number] DX/CHEST 2 VIEWS Exam Date: 12/08/18 Exam Time: 949 REPORT STATUS: Signed TECHNIQUE: Frontal and lateral views of the chest. INDICATION: [facility] [id number]. COMPARISON: None. FINDINGS: LINES/TUBES: None. LUNGS: [...] code = See_Comment [Autom ated message] The [id number]) system which ge nerated this result tra [...] diagnosis. Lab Interpretation Normal (test code = 40616-2) [facility] (KUB)
--- NOTE | 2022-12-30 11:57 | ER ---
Nurse's Notes [facility] Name: Blanka Parker Age: 77 yrs Sex: Female : 1945 Arrival Date: 12/30/2022 Time: 11:30 Bed IW5 Private MD: Diagnosis: Muscle spasm Presentation: 12/30 11:49 Chief complaint: Patient states: Right hip pain. Pt states that she had hip surgery in august and that she has been having worsening pain. pt states that the pain radiates to her thigh. Pt describes the pain as sharp, stabbing. Was seen at PCP and started on Meloxicam, gabapentin and a steroid with no relief. No trauma or injury. Coronavirus screen: Vaccine status: Patient reports being unvaccinated. Client denies travel out of the [place] in the last 14 days. Ebola Screen: Patient denies travel to an Ebola-affected area in the 21 days before illness onset. No symptoms or risks identified at this time. Initial Sepsis Screen: Does the patient meet any 2 criteria? No. Patient's initial sepsis screen is negative. Does the patient have a suspected source of infection? No. Patient's initial sepsis screen is negative. Risk Assessment: Do you want to hurt yourself or someone else? Patient reports no desire to harm self or others. Onset of symptoms was December 30, 2022. 11:49 Method Of Arrival: Wheelchair cm10 11:49 Acuity: PETEY 4 cm10 Triage Assessment: 11:54 General: Appears in no apparent distress. comfortable, Behavior is calm, cooperative. cm10 Pain: Complains of pain in right hip Pain radiates to right leg Pain currently is 9 out of 10 on a pain scale. Quality of pain is described as sharp, shooting. Neuro: No deficits noted. Level of Consciousness is awake, alert, Oriented to person, place, time, situation. Respiratory: No deficits noted. Airway is patent Respiratory effort is even, unlabored, Respiratory pattern is regular, symmetrical. Historical: - Allergies: 11:49 Codeine; cm10 11:49 COLLAGENASE; cm10 11:49 Demerol; cm10 11:49 Latex; cm10 11:49 hydromorphone; cm10 11:49 Lidocaine; cm10 11:49 PENICILLINS; cm10 11:49 venlafaxine; cm10 11:49 Zanaflex; cm10 11:49 Sulfa (Sulfonamide Antibiotics); cm10 - PMHx: 11:49 degenerative joint disease; Diverticulitis; GERD; High Cholesterol; Hypertension; cm10 - PSHx: 11:49 Appendectomy; back; bladder sling; Cholecystectomy; hysterectomy; neck fusion X 2; cm10 Right hip (neck fusion X 2 ); - Immunization history:: Adult Immunizations unknown. - Social history:: Smoking status: Patient denies any tobacco usage or history of. Screenin:06 [facility] ED Fall Risk Assessment (Adult) History of falling in the last 3 months, cm10 including since admission No falls in past 3 months (0 pts) Confusion or Disorientation No (0 pts) Intoxicated or Sedated No (0 pts) Impaired Gait Yes (1 pt) Mobility Assist Device Used Yes (1 pt) Altered Elimination No (0 pt) Score/Fall Risk Level 0 - 2 = Low Risk Oriented to surroundings, Maintained a safe environment, Hourly rounding (assess needs \T\ fall precautionary measures) done. Abuse screen: Denies threats or abuse. Denies injuries from another. Nutritional screening: No deficits noted. Tuberculosis screening: No symptoms or risk factors identified. Vital Signs: 11:49 BP 127 / 68; Pulse 76; Resp 18 S; Temp 99.1; Pulse Ox 97% on R/A; Weight 81.65 kg (R); cm10 Height 5 ft. 2 in. (R); Pain 9/10; 11:49 Body Mass Index 32.92 (81.65 kg, 157.48 cm) cm10 11:49 Pain Scale: Adult cm10 ED Course: 11:34 Patient arrived in ED. mg5 11:37 Gumaro Patel MD is Attending Physician. rn 11:37 Attending Physician role handed off by Gumaro Patel MD ec2 11:37 Louie Eid MD is Attending Physician. ec2 11:54 Triage completed. cm10 11:54 Arm band placed on Patient placed in waiting room. cm10 12:06 Patient has correct armband on for positive identification. Provided Education on: ER cm10 process and procedures. . 12:06 No provider procedures requiring assistance completed. Patient did not have IV access cm10 during this emergency room visit. Administered Medications: 12:05 Drug: Methocarbamol PO 1000 mg PO once Route: PO; cm10 12:05 Follow up: Response: No adverse reaction cm10 Medication: 12:06 VIS not applicable for this client. cm10 Outcome: 11:57 Discharge ordered by . ec2 12:06 Discharged to home via wheelchair, with significant other, cm10 12:06 Condition: good 12:06 Discharge instructions given to patient, Instructed on discharge instructions, follow up and referral plans. medication usage, Demonstrated understanding of instructions, follow-up care, medications, Prescriptions given X 1, 12:06 Patient left the ED. cm10 Signatures: Gumaro Patel MD MD rn Martinez, Clarissa, RN RN cm10 Gardner, [place] mg5 Louie Eid MD MD ec2
--- NOTE | 2022-12-30 11:57 | EDPHYS ---
Physician Documentation [facility] Name: Blanka Parker Age: 77 yrs Sex: Female : 1945 Arrival Date: 12/30/2022 Time: 11:30 Bed IW5 Private MD: ED Physician Louie Eid HPI: 12/30 11:59 This 77 yrs old Female presents to ER via Wheelchair with complaints of Leg ec2 Pain. 11:59 Patient arrives today due to concern for right leg pain. States that she had some type ec2 of procedure to help with muscle tear, subsequently felt that she sprained it and injured it. States that she is still ambulatory with some discomfort. States that she was seen by her primary care doctor last week for this and was prescribed gabapentin as well as meloxicam and a steroid pack. Patient reports no falls or injuries, denies any fevers or chills, denies any nausea or vomiting. Reports that her primary care doctor told her to come to the emergency department for an MRI of the hip.. Historical: - Allergies: 11:49 Codeine; cm10 11:49 COLLAGENASE; cm10 11:49 Demerol; cm10 11:49 Latex; cm10 11:49 hydromorphone; cm10 11:49 Lidocaine; cm10 11:49 PENICILLINS; cm10 11:49 venlafaxine; cm10 11:49 Zanaflex; cm10 11:49 Sulfa (Sulfonamide Antibiotics); cm10 - PMHx: 11:49 degenerative joint disease; Diverticulitis; GERD; High Cholesterol; Hypertension; cm10 - PSHx: 11:49 Appendectomy; back; bladder sling; Cholecystectomy; hysterectomy; neck fusion X 2; cm10 Right hip (neck fusion X 2 ); - Immunization history:: Adult Immunizations unknown. - Social history:: Smoking status: Patient denies any tobacco usage or history of. ROS: 11:59 Constitutional: hip pain ec2 Exam: 11:59 Constitutional: GEN: NAD Head: atraumatic Eyes: EOMI Ears: External ears are ec2 normal. CV: regular rate LUNGS: no respiratory distress ABD: non-distended SKIN: no evidence of rashes MSK: no evidence of trauma, right hip, right knee with good range of motion, tenderness palpation over the mid femur, right buttock tenderness palpation without deformity or crepitus appreciated NEURO: moves all extremities equally Vital Signs: 11:49 BP 127 / 68; Pulse 76; Resp 18 S; Temp 99.1; Pulse Ox 97% on R/A; Weight 81.65 kg (R); cm10 Height 5 ft. 2 in. (R); Pain 9/10; 11:49 Body Mass Index 32.92 (81.65 kg, 157.48 cm) cm10 11:49 Pain Scale: Adult cm10 MDM: 11:37 Patient medically screened. ec2 11:59 Data reviewed: vital signs. ED course: Patient arrives today for evaluation of right ec2 leg pain. Examination remarkable for well-appearing nontoxic individual is otherwise in no acute distress with a reassuring musculoskeletal and neurologic exam. Ultimately patient's presentation is consistent with muscular spasm/strain which I will start the patient on Robaxin for. Patient states that she is able to get around the home and get to the bathroom and assist with her cares. I offered the patient inpatient admission for rehabilitation and placement if she is unable to function however states that she felt comfortable with discharge home. Ultimately patient does not require emergent MRI in the emergency department, I have low clinical suspicion for spinal cord pathology, septic joint, bony fracture. Accordingly I do not feel she would benefit from any radiographs or CT imaging or lab work at this time. I instructed her to return to the ED if she changes her mind and would like to be admitted for placement. I instructed her that she needs to follow-up with her primary care doctor and have an MRI scheduled on nonemergent basis.. Administered Medications: 12:05 Drug: Methocarbamol PO 1000 mg PO once Route: PO; cm10 12:05 Follow up: Response: No adverse reaction cm10 Disposition Summary: 12/30/22 11:57 Discharge Ordered Notes: Location: Home ec2 Condition: Stable ec2 Diagnosis - Muscle spasm ec2 Discharge Instructions: - Discharge Summary Sheet ec2 - Muscle Cramps and Spasms ec2 Forms: - Medication Reconciliation Form ec2 - Thank You Letter ec2 - Antibiotic Education ec2 - Prescription Opioid Use ec2 - Patient Portal Instructions ec2 - Leadership Thank You Letter ec2 Prescriptions: - methocarbamol 500 mg Oral tablet - take 2 tablets ORAL route 4 times per day; 30 tablet; Refills: 0, Product ec2 Selection Permitted Signatures: Lenka Almaraz, SCOTTIE RN cm10 Louie Eid MD MD ec2
[2022-12-30] MEDS ORDERED: methocarbamoL 500 MG TAB ONE (12:14)
== END 2022-12-30 12:06 | disposition home or self-care (01) ==
LOC: ER 11:30
DX: M62.838 Other muscle spasm (principal); Z88.0 Allergy status to penicillin; Z88.2 Allergy status to sulfonamides; Z88.5 Allergy status to narcotic agent; Z88.8 Allergy status to other drugs, medicaments and biological substances; Z91.040 Latex allergy status
CPT/HCPCS: 99283

== ENCOUNTER 2023-04-29 15:38 | Observation (INO) | payer OTHER ==
[2023-04-29] MEDS ORDERED: NA CHLORIDE 0.9% 1,000 ML ONE (16:15)
[2023-04-29] MEDS ORDERED: ASPIRIN 81 MG CHEWABLE TABLET ONE (16:15)
[2023-04-29 16:26] LABS: Absolute Lymphocytes (CBC) 1.9 K/uL (0.7-4.9); Hematocrit 27.3 % (36.0-45.0); Lymphocytes % 20.9 % (15.3-44.8); MCV 78.1 fL (80-100); MPV 8.3 fL (7.6-11.3); Platelets 270 thou/uL (152-406)
[2023-04-29 16:54] LABS: ALT/SGPT 17 U/L (13-56); AST/SGOT 10 U/L (15-37); Albumin 3.3 g/dL (3.4-5.0); Alkaline Phosphatase 49 U/L (45-117); BUN Blood Urea Nitrogen 21 mg/dL (7-18); Bicarbonate 28 mEq/L (21-32); Bilirubin Total 0.3 mg/dL (0.2-1.0); Glomerular Filtration Rate 33 ml/min (=/>90); Glucose Level 105 mg/dL (74-106); Magnesium 1.9 mg/dL (1.6-2.4); NT PRO-BNP 52 pg/mL (<450); Potassium 4.1 mEq/L (3.5-5.1); Protein, Total 7.1 g/dL (6.4-8.2); Sodium Level 138 mEq/L (136-145)
[2023-04-29 16:55] LABS: Bilirubin Direct < 0.1 mg/dL (0-0.2); Bilirubin Indirect, Calculated ND mg/dL (0.2-0.8)
--- NOTE | 2023-04-29 17:04 | RAD REPORT ---
EXAM DESCRIPTION: Jessica Single View04/29/2023 4:47 pm CLINICAL HISTORY: Chest pain COMPARISON: none FINDINGS: The lungs appear clear of acute infiltrate. The heart is mildly enlarged IMPRESSION: No acute abnormalities displayed
[2023-04-29] MEDS ORDERED: ALPRAZOLAM 0.25 MG TABLET PO PRN (18:08)
[2023-04-29] MEDS ORDERED: ACETAMINOPHEN 500 MG TAB PO PRN (18:08)
--- NOTE | 2023-04-29 18:16 | P.HP ---
Certification for Inpatient Patient admitted to: Observation With expected LOS: <2 Midnights Patient will require the following post-hospital care: None Practitioner: I am a practitioner with admitting privileges, knowledge of patient current condition, hospital course, and medical plan of care. Services: Services provided to patient in accordance with Admission requirements found in Title 42 Section 412.3 of the Code of Federal Regulations Patient History Date of Service: 04/29/23 Reason for admission: Chest pain rule out acute coronary syndrome History of Present Illness: Patient is a 77-year-old female who presents to the hospital with chest pain. History is obtained from and patient's granddaughter Arti, who is a nurse in the emergency room. Patient been having some pain from the left breast to the left arm. She says she was a little lightheaded as well. When she came into the emergency room her blood pressure was 90/50. Her heart rate was in the 70s. She was given IV fluids and her blood pressure is currently 120s over 70s. She also has a history of chronic kidney disease. She has not been eating or drinking that well. Her was concerned that she eats too many sugar-free popsicles. At this time, patient is feeling better but she will be admitted to the hospital for further evaluation. Allergies Mxjndvt-XYH-KjL Reductase Inhibitor [Qnfpbmv-Fjo-Pyg Reductase Inhibitor] Allergy (Unknown, Verified 09/03/22 06:31) Leg Cramps Sulfa (Sulfonamide Antibiotics) Allergy (Unknown, Verified 09/03/22 06:31) low blood pressure adhesive tape Allergy (Verified 09/03/22 06:31) Itching meperidine HCl [From Demerol] Allergy (Verified 09/03/22 06:31) Anaphylaxis Penicillins Allergy (Verified 09/03/22 06:31) Unknown tizanidine HCl [From Zanaflex] Allergy (Verified 09/03/22 06:31) Anaphylaxis lidocaine Adverse Reaction (Severe, Verified 09/03/22 06:31) syncope codeine [Codeine] Adverse Reaction (Verified 09/03/22 06:31) Palpitations Latex, Natural R Allergy (Uncoded 09/03/22 06:31) Unknown Home Medications: Citalopram [Celexa*] 20 mg PO DAILY 12/01/13 Omeprazole [Prilosec] 40 mg PO DAILY 02/11/20 Amlodipine [Norvasc*] 10 mg PO DAILY 08/29/22 Hydrocodone Bit/Acetaminophen [Hydrocodon-Acetaminoph 7.5-325] 1 tab PO QID PRN 08/30/22 Iron 18 mg PO DAILY 08/30/22 Pregabalin [Lyrica] 75 mg PO BID 08/30/22 - Past Medical/Surgical History Diabetic: No -: GERD -: HTN -: Hyperlipidemia -: Skin cancer -: DJD -: Insomnia -: Recurrent diverticulitis -: lap beulah -: lap appy -: partial hyst -: foot surgery -: neck surgery -: back surgery -: Bladder suspension Psychosocial/ Personal History: Patient lives at home with her , adequate in-home care. - Family History Mother Medical History: Lung disease Notes: emphysema Father Medical History: Heart disease Notes: congenital - Social History Smoking Status: Never smoker Alcohol use: Yes CD- Drugs: No Caffeine use: Yes Review of Systems 10-point ROS is otherwise unremarkable Physical Examination - Vital Signs Temperature: 98 F (reviewed) - Physical Exam General: Alert, In no apparent distress, Oriented x3 HEENT: Atraumatic, PERRLA, Mucous membr. moist/pink, EOMI, Sclerae nonicteric Neck: Supple, 2+ carotid pulse no bruit, No LAD, Without JVD or thyroid abnormality Respiratory: Clear to auscultation bilaterally, Normal air movement Cardiovascular: Regular rate/rhythm, Normal S1 S2 Gastrointestinal: Normal bowel sounds, Soft and benign, Non-distended, No tenderness Musculoskeletal: No clubbing, No swelling, No tenderness Integumentary: No rashes Neurological: Normal gait, Normal speech, Normal strength at 5/5 x4 extr, Normal tone, Sensation intact, Cranial nerves 3-12 intact, Normal affect Lymphatics: No axilla or inguinal lymphadenopathy - Studies Laboratory Data (last 24 hrs) 04/29/23 04/29/23 16:17 16:17 WBC 9.10 Hgb 9.2 L Hct 27.3 L Plt Count 270 Sodium 138 Potassium 4.1 BUN 21 H Creatinine 1.61 H Glucose 105 Magnesium 1.9 Total Bilirubin 0.3 AST 10 L ALT 17 Alkaline Phosphatase 49 Assessment & Plan - Problems (Diagnosis) (1) Chest pain, rule out acute myocardial infarction Current Visit: Yes Status: Acute (2) Acute on chronic kidney failure Current Visit: Yes Status: Acute - Plan -High-sensitivity troponin -Cardiology consultation and nephrology consultation. Patient follows up with Dr. Moya -Echocardiogram -Repeat EKG -Work-up for other etiologies of cardiac chest pain if troponins remain negative -Lipid profile -Personal Care Assistant regarding modifying risk for cardiac disease Discharge Plan: Home Plan to discharge in: 24 Hours - Advance Directives Does patient have a Living Will: No Does patient have a Durable POA for Healthcare: No - Code Status/Comfort Care Code Status Assessed: Yes Code Status: Full Code Critical Care: No Time Spent Managing PTS Care (In Minutes): 45
--- NOTE | 2023-04-29 18:25 | ER ---
Nurse's Notes [facility] Name: Blanka Parker Age: 77 yrs Sex: Female : 1945 Arrival Date: 04/29/2023 Time: 15:38 Bed IW10 Private MD: Diagnosis: Chest pain, unspecified;Acute kidney injury Presentation: 04/29 15:50 Chief complaint: Patient states: Dizziness x "a few months" was dx w/ vertigo and ph prescribed Meclizine, states that the Meclizine was not helping so she stopped taking it, Today began having cramps in bilateral shoulder w/ pain that radiated down both arms, checked BP at home x 3 and was 90s/40s each time, also reports "a little heaviness in chest.". Coronavirus screen: Vaccine status: Patient reports receiving the 2nd dose of the covid vaccine. Ebola Screen: No symptoms or risks identified at this time. Initial Sepsis Screen: Does the patient meet any 2 criteria? Mean Arterial Pressure (MAP) < 65. HR > 90 bpm. Does the patient have a suspected source of infection? No. Patient's initial sepsis screen is negative. Risk Assessment: Do you want to hurt yourself or someone else? Patient reports no desire to harm self or others. Onset of symptoms was April 29, 2023. 15:50 Method Of Arrival: Ambulatory ph 15:50 Acuity: PETEY 2 ph Triage Assessment: 15:54 General: Appears in no apparent distress. comfortable, well groomed, Behavior is calm, ph cooperative, appropriate for age. Pain: Complains of pain in chest. Pain: Complains of pain in right arm and left arm. Neuro: Reports dizziness. Historical: - Allergies: 15:53 Codeine; ph 15:53 COLLAGENASE; ph 15:53 Demerol; ph 15:53 hydromorphone; ph 15:53 Latex; ph 15:53 Lidocaine; ph 15:53 PENICILLINS; ph 15:53 venlafaxine; ph 15:53 Zanaflex; ph - PMHx: 15:53 degenerative joint disease; Diverticulitis; GERD; High Cholesterol; Hypertension; ph - PSHx: 15:53 Appendectomy; back; bladder sling; Cholecystectomy; hysterectomy; neck fusion X 2; ph Right hip (us); - Immunization history:: Adult Immunizations up to date. - Social history:: Smoking status: Patient denies any tobacco usage or history of. - Family history:: not pertinent. Screenin:25 [facility] ED Fall Risk Assessment (Adult) History of falling in the last 3 months, mb9 including since admission No falls in past 3 months (0 pts) Confusion or Disorientation No (0 pts) Intoxicated or Sedated No (0 pts) Impaired Gait No (0 pts) Mobility Assist Device Used No (0 pt) Altered Elimination No (0 pt) Score/Fall Risk Level 0 - 2 = Low Risk Oriented to surroundings, Maintained a safe environment, Educated pt \\T\\ family on fall prevention, incl call for assistance when getting out of bed. Abuse screen: Denies threats or abuse. Nutritional screening: No deficits noted. Tuberculosis screening: No symptoms or risk factors identified. Assessment: 16:23 General: Appears in no apparent distress. Behavior is calm, cooperative. Pain: mb9 Complains of pain in chest Pain radiates to left arm and right arm Pain currently is 10 out of 10 on a pain scale. Quality of pain is described as throbbing, Pain began suddenly. Neuro: Lowery Agitation-Sedation Scale (RASS): 0 - Alert and Calm Level of Consciousness is awake, alert, obeys commands, Oriented to person, place, time, situation, Appropriate for age Reports dizziness, weakness. Cardiovascular: Heart tones S1 S2 present Patient's skin is warm and dry. Respiratory: Airway is patent Respiratory effort is even, unlabored, Respiratory pattern is regular, symmetrical, Breath sounds are clear bilaterally. GI: Abdomen is round non-distended, Bowel sounds present X 4 quads. Abd is soft and non tender X 4 quads. : No signs and/or symptoms were reported regarding the genitourinary system. EENT: No signs and/or symptoms were reported regarding the EENT system. Derm: Skin is intact, Skin is dry, Skin is pale, Skin temperature is cool. Musculoskeletal: Range of motion: intact in all extremities. 17:40 Reassessment: No changes from previously documented assessment. Patient and/or family mb9 updated on plan of care and expected duration. Pain level reassessed. Patient is alert, oriented x 3, equal unlabored respirations, skin warm/dry/pink. 18:43 Reassessment: No changes from previously documented assessment. Patient and/or family mb9 updated on plan of care and expected duration. Pain level reassessed. Patient is alert, oriented x 3, equal unlabored respirations, skin warm/dry/pink. Vital Signs: 15:50 BP 86 / 50; Pulse 92; Resp 18; Temp 97.9; Pulse Ox 98% on R/A; Weight 79.38 kg; Height ph 5 ft. 2 in. ; 16:25 BP 97 / 45; Pulse 82; Resp 18; Pulse Ox 95% on R/A; mb9 16:50 BP 112 / 49; Pulse 76; Resp 18; Pulse Ox 100% on R/A; mb9 17:40 BP 117 / 54; Pulse 77; Resp 16; Pulse Ox 100% on R/A; mb9 18:05 BP 125 / 72; Pulse 76; Resp 16; Pulse Ox 99% on R/A; mb9 18:46 BP 112 / 50; Pulse 75; Resp 16; Pulse Ox 98% on R/A; mb9 15:50 Body Mass Index 32.01 (79.38 kg, 157.48 cm) ph ED Course: 15:43 Patient arrived in ED. im 15:45 Doug Schneider MD is Attending Physician. rt 15:53 Triage completed. ph 15:54 Arm band placed on Patient placed in an exam room. ph 16:05 EKG done, by ED staff, reviewed by Doug Schneider MD. Inserted saline lock: 18 gauge mb9 in right antecubital area, using aseptic technique. 16:22 Alida Briseno, SCOTTIE is Primary Nurse. mb9 16:22 Basic Metabolic Panel Sent. mb9 16:22 CBC with Diff Sent. mb9 16:22 LFT's Sent. mb9 16:22 Magnesium Sent. mb9 16:22 NT PRO-BNP Sent. mb9 16:22 Troponin HS Sent. mb9 16:24 Placed in gown. Bed in low position. Call light in reach. Side rails up X 1. Client mb9 placed on continuous cardiac and pulse oximetry monitoring. NIBP monitoring applied. security monitor on. 16:49 XRAY Chest (1 view) In Process Unspecified. EDMS 18:24 Iris Cleaning MD is Hospitalizing Provider. rt 18:45 No provider procedures requiring assistance completed. Patient admitted, IV remains in mb9 place. 19:09 Report given to SCOTTIE DARNELL. alie9 Administered Medications: 16:22 Drug: Aspirin PO Chewable Tablet 324 mg PO once; 81 mg tablets x 4 Route: PO; mb9 16:22 Drug: NS 0.9% IV 1000 ml IV at 1 bolus Per protocol; 1000 mL bolus Route: IV; Rate: 1 mb9 bolus; Site: right antecubital; 18:24 Follow up: Response: No adverse reaction; IV Status: Completed infusion mb9 18:45 Follow up: Response: No adverse reaction; IV Status: Completed infusion mb9 Medication: 16:25 VIS not applicable for this client. mb9 Outcome: 18:24 Decision to Hospitalize by Provider. rt 04/30 01:05 Admitted to Med/surg accompanied by tech, via wheelchair, room 224, Report called to rosa maria TOBIN RN Condition: improved 02:04 Patient left the ED. rosa maria Signatures: Dispatcher [employer] EDTiki Fischer RN RN ph Johnson, Dedrick RN Alida Bryant RN RN mb9 [place], Ryan, MD MD rt Elida Ferris Corrections: (The following items were deleted from the chart) 02 16:26 16:25 Pulse 82bpm; Resp 18bpm; Pulse Ox 95% RA; mb9 mb9 16:50 16:50 BP 112 / 49; Pulse 16bpm; Resp 18bpm; Pulse Ox 100% RA; alie9 mb9 18:46 18:43 BP 110 / 52; Pulse 75bpm; Resp 16bpm; Pulse Ox 98% RA; mb9 mb9
--- NOTE | 2023-04-29 18:25 | EDPHYS ---
Physician Documentation [facility] Name: Blanka Parker Age: 77 yrs Sex: Female : 1945 Arrival Date: 04/29/2023 Time: 15:38 Bed [id number] Private MD: ED Physician Doug Schneider HPI: 04/29 16:35 This 77 yrs old Female presents to ER via Ambulatory with complaints of low blood rt pressure, Arm Problem - cramps, Dizziness. 16:35 Patient presents to the ED with a dizziness which describes a lightheadedness. States rt that she has had episodes of low blood pressure today. Reports that she is off balance when she stands up. She reports a chest heaviness, with pains to the bilateral shoulders rating down the left arm. States that is better, he has a minor chest heaviness at this time. Denies shortness of breath, acute complaints, symptoms are moderate in severity, no other aggravating or alleviating factors.. Historical: - Allergies: 15:53 Codeine; ph 15:53 COLLAGENASE; ph 15:53 Demerol; ph 15:53 hydromorphone; ph 15:53 Latex; ph 15:53 Lidocaine; ph 15:53 PENICILLINS; ph 15:53 venlafaxine; ph 15:53 Zanaflex; ph - PMHx: 15:53 degenerative joint disease; Diverticulitis; GERD; High Cholesterol; Hypertension; ph - PSHx: 15:53 Appendectomy; back; bladder sling; Cholecystectomy; hysterectomy; neck fusion X 2; ph Right hip (us); - Immunization history:: Adult Immunizations up to date. - Social history:: Smoking status: Patient denies any tobacco usage or history of. - Family history:: not pertinent. ROS: 16:35 Constitutional: Negative for fever, chills, and weight loss, Respiratory: Negative for rt shortness of breath, cough, wheezing, and pleuritic chest pain, Abdomen/GI: Negative for abdominal pain, nausea, vomiting, diarrhea, and constipation, MS/Extremity: Negative for injury and deformity, Skin: Negative for injury, rash, and discoloration, Psych: Negative for depression, anxiety, suicide ideation, homicidal ideation, and hallucinations, 16:35 Cardiovascular: Positive for chest pain, Negative for edema, 16:35 Neuro: Positive for near syncope, Negative for altered mental status, Exam: 16:35 Constitutional: This is a well developed, well nourished patient who is awake, alert, rt and in no acute distress. Head/Face: Normocephalic, atraumatic. Chest/axilla: Normal chest wall appearance and motion. Nontender with no deformity. No lesions are appreciated. Cardiovascular: Regular rate and rhythm with a normal S1 and S2. No gallops, murmurs, or rubs. Normal PMI, no JVD. No pulse deficits. Respiratory: Lungs have equal breath sounds bilaterally, clear to auscultation and percussion. No rales, rhonchi or wheezes noted. No increased work of breathing, no retractions or nasal flaring. Abdomen/GI: Soft, non-tender, with normal bowel sounds. No distension or tympany. No guarding or rebound. No evidence of tenderness throughout. Skin: Warm, dry with normal turgor. Normal color with no rashes, no lesions, and no evidence of cellulitis. MS/ Extremity: Pulses equal, no cyanosis. Neurovascular intact. Full, normal range of motion. Neuro: Awake and alert, GCS 15, oriented to person, place, time, and situation. Cranial nerves II-XII grossly intact. Motor strength 5/5 in all extremities. Sensory grossly intact. Cerebellar exam normal. Normal gait. Psych: Awake, alert, with orientation to person, place and time. Behavior, mood, and affect are within normal limits. 16:35 ECG was reviewed by the Attending Physician. Vital Signs: 15:50 BP 86 / 50; Pulse 92; Resp 18; Temp 97.9; Pulse Ox 98% on R/A; Weight 79.38 kg; Height ph 5 ft. 2 in. ; 16:25 BP 97 / 45; Pulse 82; Resp 18; Pulse Ox 95% on R/A; mb9 16:50 BP 112 / 49; Pulse 76; Resp 18; Pulse Ox 100% on R/A; mb9 17:40 BP 117 / 54; Pulse 77; Resp 16; Pulse Ox 100% on R/A; mb9 18:05 BP 125 / 72; Pulse 76; Resp 16; Pulse Ox 99% on R/A; mb9 18:46 BP 112 / 50; Pulse 75; Resp 16; Pulse Ox 98% on R/A; mb9 15:50 Body Mass Index 32.01 (79.38 kg, 157.48 cm) ph MDM: 16:02 Patient medically screened. rt 20:18 Differential diagnosis: Dehydration, ACS, acute kidney injury. Data reviewed: vital rt signs, nurses notes. Consideration of Admission/Observation Patient was admitted/placed on observation. Management of patient was discussed with the following: Hospitalist: Agrees to admit. I considered the following discharge prescriptions or medication management in the emergency department Medications were administered in the Emergency Department. See MAR. Independent interpretation of the following test(s) in the Emergency Department X-Ray: My interpretation is No consolidation seen on interpretation of x-ray images. Test considered but Not performed: CT: Low suspicion for PE, CT angiogram not indicated. Care significantly affected by the following chronic conditions: Hypertension. Counseling: I had a detailed discussion with the patient and/or guardian regarding the historical points, exam findings, and any diagnostic results supporting the discharge/admit diagnosis, lab results, radiology results, the need for further work-up and treatment in the hospital. Response to treatment: the patient's symptoms have markedly improved after treatment. 04/29 16:10 Order name: Basic Metabolic Panel; Complete Time: 16:56 rt 04/29 16:10 Order name: CBC with Diff; Complete Time: 16:56 rt 04/29 16:10 Order name: LFT's; Complete Time: 16:56 rt 04/29 16:10 Order name: Magnesium; Complete Time: 16:56 rt 04/29 16:10 Order name: NT PRO-BNP; Complete Time: 16:56 rt 04/29 16:10 Order name: Troponin HS; Complete Time: 16:56 rt 04/29 18:14 Order name: Basic Metabolic Panel EDMS 04/29 18:14 Order name: Basic Metabolic Panel EDMS 04/29 18:14 Order name: CBC with Automated Diff EDMS 04/29 18:14 Order name: CBC with Automated Diff EDMS 04/29 18:14 Order name: Lipid Profile EDMS 04/29 18:14 Order name: Lipid Profile EDMS 04/29 18:14 Order name: Troponin High Sensitivity EDMS 04/29 18:14 Order name: Troponin High Sensitivity EDMS 04/29 18:14 Order name: Troponin High Sensitivity EDMS 04/29 18:19 Order name: Iron EDMS 04/29 18:19 Order name: NT PRO-BNP EDMS 04/29 18:19 Order name: Protime (+INR) EDMS 04/29 18:19 Order name: Retic Count EDMS 04/29 18:19 Order name: T4 Free EDMS 04/29 18:19 Order name: Thyroid Stimulating Hormone EDMS 04/29 18:19 Order name: Vitamin B12 Level EDMS 04/29 18:19 Order name: Ferritin EDMS 04/29 18:19 Order name: Ferritin EDMS 04/29 18:19 Order name: Ferritin EDMS 04/29 18:19 Order name: Ferritin EDMS 04/29 18:19 Order name: Magnesium EDMS 04/29 18:19 Order name: Magnesium EDMS 04/29 18:19 Order name: Magnesium EDMS 04/29 18:19 Order name: Magnesium EDMS 04/29 16:10 Order name: XRAY Chest (1 view); Complete Time: 17:06 rt 04/29 18:14 Order name: Echo with Doppler EDMS 04/29 18:14 Order name: Renal Ultrasound-Complete EDMS 04/29 18:14 Order name: Renal Ultrasound-Complete EDMS 04/29 18:19 Order name: Lumbar Spine - Single View EDMS 04/29 18:19 Order name: Lumbar Spine - Single View EDMS 04/29 20:29 Order name: US EDIA 04/29 16:10 Order name: EKG; Complete Time: 16:10 rt 04/29 18:14 Order name: CONS Physician Consult EDMS 04/29 18:14 Order name: CONS Physician Consult EDMS 04/29 16:10 Order name: Cardiac monitoring; Complete Time: 16:22 rt 04/29 16:10 Order name: EKG - Nurse/Tech; Complete Time: 16:22 rt 04/29 16:10 Order name: IV Saline Lock; Complete Time: 16:22 rt 04/29 16:10 Order name: Labs collected and sent; Complete Time: 16:22 rt 04/29 16:10 Order name: O2 Per Protocol; Complete Time: 16:22 rt 04/29 16:10 Order name: O2 Sat Monitoring; Complete Time: 16:22 rt EC:35 Rate is 75 beats/min. Rhythm is regular, 1st Degree Block with No ectopy. QRS [place] is rt Normal. TN interval is normal. QRS interval is normal. QT interval is normal. No Q waves. T waves are Normal. No ST changes noted. Interpreted by me. Administered Medications: 16:22 Drug: Aspirin PO Chewable Tablet 324 mg PO once; 81 mg tablets x 4 Route: PO; mb9 16:22 Drug: NS 0.9% IV 1000 ml IV at 1 bolus Per protocol; 1000 mL bolus Route: IV; Rate: 1 mb9 bolus; Site: right antecubital; 18:24 Follow up: Response: No adverse reaction; IV Status: Completed infusion mb9 18:45 Follow up: Response: No adverse reaction; IV Status: Completed infusion mb9 Disposition Summary: 04/29/23 18:24 Hospitalization Ordered Notes: Hospitalization Status: Observation rt Provider: Iris Cleaning rt Condition: Stable rt Problem: new rt Symptoms: have improved rt Bed/Room Type: Standard rt Location: Telemetry/MedSurg (observation)(04/30/23 00:47) ty Room Assignment: 224(04/30/23 00:47) ty Diagnosis - Chest pain, unspecified rt - Acute kidney injury rt Forms: - Medication Reconciliation Form rt - SBAR form rt - Leadership Thank You Letter rt Signatures: Dispatcher [employer] Tiki Sanchez RN RN Alida Good RN RN mb9 Doug Schneider MD MD rt Derek Perez ty Corrections: (The following items were deleted from the chart) 19: 18:24 Telemetry/MedSurg (observation) rt ty 19: 18:24 rt ty 04/30 00:47 04/29 19:21 [facility] ER HOLD ty ty 04/30 00:47 04/29 19:21 ERHOLD- ty ty
[2023-04-29] MEDS: dexAMETHasone 4 MG/ML VIAL IV ONE (20:00)
--- NOTE | 2023-04-29 20:29 | RAD REPORT ---
EXAM DESCRIPTION: US - Renal Ultrasound-Complete - 04/29/2023 8:06 pm CLINICAL HISTORY: Acute renal insufficiency COMPARISON: 2020 CT FINDINGS: The right kidney measures 10 cm with a normal echotexture. The left kidney measures 10 cm with a normal echotexture. Two left renal cysts. Largest 4.1 centimete rs Hydronephrosis is not seen. No gross abnormality of bladder IMPRESSION: Left renal cysts
[2023-04-29] MEDS ORDERED: dexAMETHasone 4 MG/ML VIAL ONE (20:35)
[2023-04-29] MEDS: ENOXAPARIN 30 MG/0.3 ML SQ SCH (20:53)
[2023-04-29] MEDS: METOPROLOL TAR 25 MG TAB PO SCH (20:54)
[2023-04-29 21:29] VITALS: BMI 32.0
[2023-04-30 02:33] VITALS: O2SAT 98
[2023-04-30 03:53] LABS: Hematocrit 25.2 % (36.0-45.0); RBC Red Blood Cell Count 3.18 M/uL (3.86-4.86)
[2023-04-30 03:54] LABS: Absolute Lymphocytes (CBC) 0.8 K/uL (0.7-4.9); Lymphocytes % 13.9 % (15.3-44.8); MPV 8.4 fL (7.6-11.3); Platelets 241 thou/uL (152-406)
[2023-04-30 03:55] LABS: RBC Red Blood Cell Count 3.17 M/uL (3.86-4.86)
[2023-04-30 03:56] LABS: Protime INR 1.16
[2023-04-30 04:54] LABS: Ferritin 16.7 ng/mL (8-388); Magnesium 2.2 mg/dL (1.6-2.4); Potassium 4.4 mEq/L (3.5-5.1); Thyroid Stimulating Hormone 0.765 uIU/mL (0.358-3.740); Troponin High Sensitivity 4.1 pg/mL (<58.9)
--- NOTE | 2023-04-30 07:47 | RAD REPORT ---
EXAM DESCRIPTION: RAD - Lumbar Spine - Single View - 04/30/2023 4:42 am CLINICAL HISTORY: Back pain FINDINGS: Mild to moderate anterior subluxation L5 on S1 No fracture or dislocation is seen. Osteoporosis. Osteoarthritis facet joints lower lumbar spine
[2023-04-30] MEDS: INFLUENZA VACCINE (for 6+ mo) 0.5 ML DOSE IMVAC ONE (08:00)
[2023-04-30] MEDS: PNEUMOCOCCAL VACCINE 0.5 ML IMVAC ONE (08:00)
[2023-04-30 09:27] LABS: Specific Gravity 1.009 (1.005-1.030); Urine Bilirubin NEGATIVE (Negative); Urine Blood Negative (Negative); Urine Clarity Clear (Clear); Urine Color Colorless (Yellow); Urine Glucose TRACE (Negative); Urine Protein NEGATIVE (Negative); Urine Urobilinogen Normal (Normal); Urine pH 7.5 (5.0-7.0)
[2023-04-30] MEDS: ASPIRIN EC 81 MG TAB PO SCH (10:54)
[2023-04-30] MEDS: lisinopriL 10 MG TAB PO SCH (10:55)
[2023-04-30] MEDS: SOD FERRIC GLUC COMPLX/SUCROSE 125 MG in NA CHLORIDE 0.9% 100 ML IV SCH (11:58)
--- NOTE | 2023-04-30 12:59 | CON ---
Date of Consultation: 04/30/2023 Reason For Consultation: Elevated BUN and creatinine and fluid management. History Of Present Illness: This is a pleasant 77-year-old female with significant past medical hist ory of hypertension, hyperlipidemia, skin cancer. The patient came to the hospital feeling weak, fat igued for the last couple of weeks, found to have low blood pressure and elevation in BUN and creatin ine. For that reason, we have been consulted. Patient denied taking any nonsteroidal. On reviewing her home medication, patient being on omeprazole and the patient being on valsartan as by the raquel rangel. The patient denied any recent change on her medication. The patient was started on IV fluid. Ki dney function has been improved. Past Medical History: Include: 1.Hypertension. 2.Hyperlipidemia. 3.GERD. 4.Keratosis. Past Surgical History: Includes foot surgery, neck surgery, back surgery, bladder suspension surgery . Home Medications: Include valsartan, citalopram, omeprazole, amlodipine, hydrocodone, and Lyrica. Family History: Positive for lung cancer and CAD. Social History: Denied smoking. Occasional alcohol. Denied drugs abuse. Review of Systems: Head and Neck: Has light headache. Has nausea. GI: Has nausea. No vomiting. : No polyuria. No dysuria. No hematuria. HOME HEALTH PHYSICAL THERAPIST: No vaginal discharge. Respiratory: No shortness of breath. Cardiovascular: No chest pain. Physical Examination: Vital Signs: When I saw the patient, patient lying in bed, comfortable, not on any distress. Blood pressure of 146/94, pulse of 83, afebrile. Chest: Clear to auscultation. Heart: S1, S2. Regular. Abdomen: Soft, nontender. Extremities: No edema. Neurologic: Alert. No focality. Laboratory Data: Renal ultrasound, 12/17, renal cyst, the largest 4.1 cm on the left side. Hemoglob in 8.2, sodium 139, potassium 4.4, bicarb 25, BUN 23, creatinine 1, GFR 52, calcium 8.2. Iron satura tion 16. Yesterday, creatinine 1.6, GFR 33, TSH 0.7. Urinalysis negative for infection. Current Medications: In the hospital include aspirin, Lovenox, lisinopril, metoprolol, alprazolam. Assessment And Plan: 1.Acute kidney injury secondary to prerenal, poor intake, superimposed with ARB, on the recovery pha se, looked to me normal volume, normal size kidney. I am going to continue current treatment. Disco ntinue lisinopril and keep holding valsartan and we will monitor the patient. I am going to send for basic workup. 2.Hypertension, controlled, optimal. With the presence of acute kidney injury, discontinue valsarta n, discontinue lisinopril. 3.Anemia of chronic kidney disease/iron-deficiency anemia. I am going to send for serum protein william ctrophoresis and I am going to send for protein creatinine ratio and we will follow up the patient. 4.Marginal hyponatremia, stable. No need for supplement. BRY/ARLIN Voice ID: [id number] Report ID: [id number]
--- NOTE | 2023-04-30 13:27 | ECHO ---
HEIGHT: 5 ft 2 in WEIGHT: 175 lb 0 oz DATE OF STUDY: 04/30/[address]: Iris Cleaning MD 2-DIMENSIONAL: YES M.MODE: YES DOPPLER: YES COLOR FLOW: YES TDS: PORTABLE: YES DEFINITY: BUBBLE STUDY: DIAGNOSIS: CHEST PAIN, RULE OUT ACUTE CORONARY SYNDROME CARDIAC HISTORY: CATHERIZATION: YES SURGERY: NO PROSTHETIC VALVE: NO PACEMAKER: NO MEASUREMENTS (cm) DIASTOLIC (NORMALS) SYSTOLIC (NORMALS) IVSd 1.2 (0.6-1.2) LA Diam 2.8 (1.9-4.0) LVEF 69% LVIDd 4.2 (3.5-5.7) LVIDs 2.6 (2.0-3.5) %FS 38% LVPWd 1.2 (0.6-1.2) Ao Diam 3.3 (2.0-3.7) 2 DIMENSIONAL ASSESSMENT: RIGHT ATRIUM: NORMAL LEFT ATRIUM: NORMAL RIGHT VENTRICLE: NORMAL LEFT VENTRICLE: NORMAL TRICUSPID VALVE: NORMAL MITRAL VALVE: NORMAL PULMONIC VALVE: NORMAL AORTIC VALVE: NORMAL PERICARDIAL EFFUSION: SMALL AORTIC ROOT: NORMAL LEFT VENTRICULAR WALL MOTION: NORMAL DOPPLER/COLOR FLOW: GRADE I DIASTOLIC DYSFUNCTION COMMENTS: 1. NORMAL LEFT VENTRICULAR SYSTOLIC FUNCTION, NORMAL WALL MOTION, EJECTION FRACTION 55-60% 2. GRADE I DIASTOLIC DYSFUNCTION TECHNOLOGIST: CHERY FLORES
[2023-04-30 14:23] VITALS: BP 150/76; TEMP 98.5
--- NOTE | 2023-05-01 16:12 | EKG ---
Test Date: 2023-04-29 Test Time: 16:11:51 Pack Master: MB MEASUREMENT RESULTS: Intervals: Rate: 75 IA: 212 QRSD: 88 QT: 388 QTc: 433 [place]: P: 53 IA: 212 QRS: 40 T: 74 INTERPRETIVE STATEMENTS: Sinus rhythm with 1st degree AV block Otherwise normal ECG Compared to ECG 04/29/2023 16:04:45 First degree AV block now present Electronically Signed On 05-01-23 16:06:21 MAIN LINE STATION ENGINEER by Cristopher Shepherd
--- NOTE | 2023-05-01 16:13 | EKG ---
Test Date: 2023-04-29 Test Time: 16:04:45 Script Worker: MB MEASUREMENT RESULTS: Intervals: Rate: 80 WA: 208 QRSD: 84 QT: 384 QTc: 442 [place]: P: 78 WA: 208 QRS: 42 T: 76 INTERPRETIVE STATEMENTS: Normal sinus rhythm Normal ECG Compared to ECG 04/29/2023 16:04:14 No significant changes Electronically Signed On 05-01-23 16:06:24 DATA CLERK by Cristopher Shepherd
--- NOTE | 2023-05-01 16:13 | EKG ---
Test Date: 2023-04-29 Test Time: 16:04:14 Stereoptic Projection Topographer: MB MEASUREMENT RESULTS: Intervals: Rate: 85 VA: 206 QRSD: 82 QT: 380 QTc: 452 [place]: P: 52 VA: 206 QRS: 41 T: 77 INTERPRETIVE STATEMENTS: Normal sinus rhythm Normal ECG Compared to ECG 08/29/2022 09:48:54 Myocardial infarct finding no longer present Electronically Signed On 05-01-23 16:06:27 SEA SHELL GATHERER by Cristopher Shepherd
== END 2023-04-30 14:39 | disposition home or self-care (01) ==
LOC: ER 15:38 → ERHOLD 18:08 → 2ND 04-30 01:33
PROVIDERS: ADMIT Hospitalist; ATTEND Hospitalist
DX: R07.9 Chest pain, unspecified (principal); N17.9 Acute kidney failure, unspecified; I10 Essential (primary) hypertension; E78.5 Hyperlipidemia, unspecified; K21.9 Gastro-esophageal reflux disease without esophagitis; L57.0 Actinic keratosis; I25.10 Atherosclerotic heart disease of native coronary artery without angina pectoris; D63.1 Anemia in chronic kidney disease; E87.1 Hypo-osmolality and hyponatremia; R79.89 Other specified abnormal findings of blood chemistry; Z85.828 Personal history of other malignant neoplasm of skin; Z88.0 Allergy status to penicillin; Z88.5 Allergy status to narcotic agent; Z88.2 Allergy status to sulfonamides; Z88.8 Allergy status to other drugs, medicaments and biological substances; Z85.118 Personal history of other malignant neoplasm of bronchus and lung
CPT/HCPCS: 93005 ×2; 93306; 85025 ×2; 80048 ×2; 36415; 83735 ×2; 85610; 85044; 80061; 80076; 84443; 81003; 84484 ×3; 84439; 82728; 82607; 83540; 83880 ×2; 71045; 72020; 76770; J2916; J1100; J1650 ×2; J7030; G0378

== ENCOUNTER 2023-08-29 07:08 | Emergency (ER) | payer OTHER ==
[2023-08-29] MEDS ORDERED: FENTANYL CITR 100 MCG/2 ML ONE (07:34)
[2023-08-29] MEDS ORDERED: PROMETHAZINE INJ 25 MG/ML AMP ONE (07:34)
[2023-08-29] MEDS ORDERED: NA CHLORIDE 0.9% 1,000 ML ONE (07:35)
[2023-08-29 07:40] LABS: Absolute Eosinophils 0.1 K/uL (0-0.5); Absolute Lymphocytes (CBC) 1.4 K/uL (0.7-4.9); Absolute Monocytes 0.3 K/uL (0.1-1.3); Absolute Neutrophil 7.5 K/uL (1.8-8.0); Basophils % 0.4 % (0-1.3); Eosinophils % 1.5 % (0-4.4); Hematocrit 27.3 % (36.0-45.0); Hemoglobin 8.6 g/dL (12.0-15.0); Lymphocytes % 15.1 % (15.3-44.8); MCH 23.8 pg (27.0-35.0); MCHC 31.5 g/dL (32.0-36.0); MCV 75.7 fL (80-100); MPV 8.2 fL (7.6-11.3); Monocytes % 3.4 % (3.3-12.3); Neutrophils % 79.6 % (41.7-73.7); Platelets 257 thou/uL (152-406); Red Cell Distribution Width 17.2 % (12.1-15.2)
[2023-08-29 08:00] LABS: Albumin 3.3 g/dL (3.4-5.0); Albumin/Globulin Ratio 1.1 (1.1-1.8); Anion Gap 7.7 mEq/L (5.0-15.0); Bilirubin Total 0.4 mg/dL (0.2-1.0); Globulin 3.1 g/dL (2.3-3.5); Potassium 3.7 mEq/L (3.5-5.1); Protein, Total 6.4 g/dL (6.4-8.2)
--- NOTE | 2023-08-29 09:34 | RAD REPORT ---
EXAM DESCRIPTION: CT - Abdomen Pelvis W Contrast - 08/29/2023 8:16 am CLINICAL HISTORY: ABD PAIN COMPARISON: Abdomen Pelvis W Contrast dated 06/09/2020; Abdomen Pelvis W Contrast dated 11/10/2019; Abdomen Pelvis W Contrast dated 07/14/2019; Abdomen Pelvis W Contrast dated 06/29/2019 TECHNIQUE: Thin cut axial CT imaging of the abdomen and pelvis was performed following intravenous a dministration of 100 mL Isovue 300. Multiplanar reformats were generated and reviewed. All CT scans are performed using dose optimization technique as appropriate and may include automated exposure control or mA/KV adjustment according to patient size. FINDINGS: No suspicious findings in the lung bases. The liver, spleen, and pancreas show no suspicious findings. Stable right adrenal 2.1 cm nodule. Prob able small nodule on the left along the lateral limb, also stable. Gallbladder was surgically removed . Symmetric renal function is seen with no hydronephrosis or suspicious renal mass. Multiple small left renal calculi including a 3 mm left interpolar nonobstructing calculus. Exophytic left interpolar 4. 2 cm fluid density cyst. Mild fluid distention of the colon to the level of the mid descending colon. Opacification of nondist ended short segments of distal small bowel as well. No bowel wall thickening. Mild colonic diverticul osis. No free air, free fluid or inflammatory stranding. No hernia, mass or bulky lymphadenopathy. Th e urinary bladder is without significant finding. No suspicious bony findings. IMPRESSION: Fluid opacification of nondistended distal small bowel, and mild fluid distention of the proximal to mid descending colon. Findings are nonspecific and may represent infectious enterocoliti s. No bowel wall thickening. Nonobstructing small left renal calculi. Mild colonic diverticulosis. Stable right adrenal nodule.
--- NOTE | 2023-08-29 09:43 | ER ---
Nurse's Notes [facility] Name: Blanka Parker Age: 78 yrs Sex: Female : 1945 Arrival Date: 08/29/2023 Time: 07:08 Bed 4 Private MD: Diagnosis: Constipation, unspecified Presentation: 08/28 07:16 Chief complaint: Patient states: she has been having abdominal pain for approx one week ap3 with poor bowel movements during the same time frame. patient currently rates her pain as an 11/10 on the pain scale in the left lower quadrant of her abdomen. Coronavirus screen: At this time, the client does not indicate any symptoms associated with coronavirus-19. Ebola Screen: No symptoms or risks identified at this time. Initial Sepsis Screen: Does the patient meet any 2 criteria? No. Patient's initial sepsis screen is negative. Does the patient have a suspected source of infection? No. Patient's initial sepsis screen is negative. Risk Assessment: Do you want to hurt yourself or someone else? Patient reports no desire to harm self or others. Onset of symptoms was August 22, 2023. Care prior to arrival: Medication(s) given: Normal saline infusion, zofran 8 mg, fentanyl 50 mcg IV initiated. 20 GA, in the right antecubital area. 07:16 Method Of Arrival: EMS: [facility] ap3 07:16 Acuity: PETEY 3 ap3 Triage Assessment: 07:20 General: Appears uncomfortable, Behavior is calm, cooperative, appropriate for age. ap3 Pain: Complains of pain in left lower quadrant Pain currently is 11 out of 10 on a pain scale. Pain began one week ago. Neuro: Level of Consciousness is awake, alert, obeys commands, Oriented to person, place, time, situation. Cardiovascular: Patient's skin is warm and dry. Respiratory: Airway is patent Respiratory effort is even, unlabored. GI: Reports lower abdominal pain, upper abdominal pain, constipation. Historical: - Allergies: 07:18 Codeine; ap3 07:18 COLLAGENASE; ap3 07:18 Demerol; ap3 07:18 hydromorphone; ap3 07:18 Lidocaine; ap3 07:18 PENICILLINS; ap3 07:18 Sulfa (Sulfonamide Antibiotics); ap3 07:18 venlafaxine; ap3 07:18 Zanaflex; ap3 - PMHx: 07:18 degenerative joint disease; Diverticulitis; GERD; High Cholesterol; Hypertension; ap3 Anxiety; - PSHx: 07:18 Appendectomy; back; bladder sling; Cholecystectomy; hysterectomy; neck fusion X 2; ap3 Right hip; - Immunization history:: Client reports having NOT received the Covid vaccine. Flu vaccine is not up to date. - Infectious Disease History:: Denies. - Social history:: Smoking status: Patient reports the use of cigarette tobacco products, smokes one-half pack cigarettes per day. - Family history:: not pertinent. Screenin:26 Abuse screen: Denies threats or abuse. Nutritional screening: No deficits noted. ap3 Tuberculosis screening: No symptoms or risk factors identified. 10:25 [facility] ED Fall Risk Assessment (Adult) History of falling in the last 3 months, ap3 including since admission No falls in past 3 months (0 pts) Confusion or Disorientation No (0 pts) Intoxicated or Sedated No (0 pts) Impaired Gait Yes (1 pt) Mobility Assist Device Used No (0 pt) Altered Elimination No (0 pt) Score/Fall Risk Level 0 - 2 = Low Risk Oriented to surroundings, Maintained a safe environment, Educated pt \T\ family on fall prevention, incl call for assistance when getting out of bed, Assessed \T\ reinforced patient's understanding of fall precautions, Provided non-skid footwear, Hourly rounding (assess needs \T\ fall precautionary measures) done, Used ambulatory aids as needed (educated on \T\ assisted with), Used gait belt as appropriate. Vital Signs: 07:16 BP 151 / 68; Pulse 64; Resp 18; Pulse Ox 98% on R/A; Weight 77.11 kg; Height 5 ft. 2 ap3 in. ; Pain 10/10; 07:16 Body Mass Index 31.09 (77.11 kg, 157.48 cm) ap3 07:16 Pain Scale: Adult ap3 ED Course: 07:14 Patient arrived in ED. ap3 07:18 Triage completed. ap3 07:18 Doug Schneider MD is Attending Physician. rt 07:18 EKG done, by ED staff, reviewed by Doug Schneider MD. zm 07:27 Arm band placed on right wrist. ap3 07:27 Patient has correct armband on for positive identification. Bed in low position. Call ap3 light in reach. Side rails up X2. Adult w/ patient. Provided Education on: call light and fall education. Pulse ox on. NIBP on. 07:31 Maintain EMS IV. Dressing intact. Good blood return noted. Site clean \T\ dry. Gauge \T\ zm site: 20G RAC. 07:32 Initial lab(s) drawn, by me, sent to lab. zm 07:32 Troponin High Sensitivity Sent. zm 07:32 CBC with Diff Sent. zm 07:32 CMP Sent. zm 07:32 Lipase Sent. zm 08:16 CT Abd/Pelvis - IV Contrast Only In Process Unspecified. EDMS 10:25 No provider procedures requiring assistance completed. IV discontinued, intact, ap3 bleeding controlled, No redness/swelling at site. Pressure dressing applied. Administered Medications: 07:41 Drug: Promethazine IVP 12.5 mg IVP once Route: IVP; Site: right antecubital; aa5 10:26 Follow up: Response: No adverse reaction; Nausea is decreased ap3 07:42 Drug: NS 0.9% IV 1000 ml IV at 1 bolus Per protocol; 1000 mL bolus Route: IV; Rate: 1 aa5 bolus; Site: right antecubital; 10:26 Follow up: IV Status: Completed infusion; IV Intake: 1000ml ap3 07:43 Drug: fentaNYL (PF) IVP 50 mcg IVP once Route: IVP; Site: right antecubital; aa5 10:26 Follow up: Response: No adverse reaction; Pain is decreased ap3 Medication: 10:25 VIS not applicable for this client. ap3 Intake: 10:26 IV: 1000ml; Total: 1000ml. ap3 Outcome: 09:42 Discharge ordered by . rt 10:25 Condition: good ap3 10:25 Discharge instructions given to patient, Instructed on discharge instructions, follow up and referral plans. medication usage, Demonstrated understanding of instructions, follow-up care, medications, Prescriptions given X 1, 11:15 Discharged to home via wheelchair, with family, ap3 11:15 Patient left the ED. ap3 Signatures: Dispatcher [employer] EDMS Cordelia Campbell RN RN aa5 Ivis Gonzalez RN RN ap3 Kassi Almaraz Ryan, MD MD rt
--- NOTE | 2023-08-29 09:43 | EDPHYS ---
Physician Documentation [facility] Name: Blanka Parker Age: 78 yrs Sex: Female : 1945 Arrival Date: 08/29/2023 Time: 07:08 Bed 4 Private MD: ED Physician Doug Schneider HPI: 08/28 07:26 This 78 yrs old Female presents to ER via EMS with complaints of Abdominal pain. rt 07:26 Patient presents to the ED with abdominal pain. The patient has had the symptoms for rt about a week. Patient states that she has not had a bowel movement, only passed a small amount of stool during that time. Reports generalized abdominal pain. Reports that she was sweating. Reports nausea, vomiting. Denies other acute complaints, symptoms are moderate in severity, no other aggravating or alleviating factors.. Historical: - Allergies: 07:18 Codeine; ap3 07:18 COLLAGENASE; ap3 07:18 Demerol; ap3 07:18 hydromorphone; ap3 07:18 Lidocaine; ap3 07:18 PENICILLINS; ap3 07:18 Sulfa (Sulfonamide Antibiotics); ap3 07:18 venlafaxine; ap3 07:18 Zanaflex; ap3 - PMHx: 07:18 degenerative joint disease; Diverticulitis; GERD; High Cholesterol; Hypertension; ap3 Anxiety; - PSHx: 07:18 Appendectomy; back; bladder sling; Cholecystectomy; hysterectomy; neck fusion X 2; ap3 Right hip; - Immunization history:: Client reports having NOT received the Covid vaccine. Flu vaccine is not up to date. - Infectious Disease History:: Denies. - Social history:: Smoking status: Patient reports the use of cigarette tobacco products, smokes one-half pack cigarettes per day. - Family history:: not pertinent. ROS: 07:26 Constitutional: Negative for fever, chills, and weight loss, Cardiovascular: Negative rt for chest pain, palpitations, and edema, Respiratory: Negative for shortness of breath, cough, wheezing, and pleuritic chest pain, Abdomen/GI: Negative for abdominal pain, nausea, vomiting, diarrhea, and constipation, Skin: Negative for injury, rash, and discoloration, Neuro: Negative for headache, weakness, numbness, tingling, and seizure, 07:26 Abdomen/GI: Positive for abdominal pain, nausea and vomiting, constipation, Exam: 07:26 Constitutional: This is a well developed, well nourished patient who is awake, alert, rt and in no acute distress. Head/Face: Normocephalic, atraumatic. Chest/axilla: Normal chest wall appearance and motion. Nontender with no deformity. No lesions are appreciated. Cardiovascular: Regular rate and rhythm with a normal S1 and S2. No gallops, murmurs, or rubs. Normal PMI, no JVD. No pulse deficits. Respiratory: Lungs have equal breath sounds bilaterally, clear to auscultation and percussion. No rales, rhonchi or wheezes noted. No increased work of breathing, no retractions or nasal flaring. Skin: Warm, dry with normal turgor. Normal color with no rashes, no lesions, and no evidence of cellulitis. MS/ Extremity: Pulses equal, no cyanosis. Neurovascular intact. Full, normal range of motion. Neuro: Awake and alert, GCS 15, oriented to person, place, time, and situation. Cranial nerves II-XII grossly intact. Motor strength 5/5 in all extremities. Sensory grossly intact. Cerebellar exam normal. Normal gait. 07:26 ECG was reviewed by the Attending Physician. 07:26 Abdomen/GI: Mild distention, tenderness, no rebound, guarding, distention., Vital Signs: 07:16 BP 151 / 68; Pulse 64; Resp 18; Pulse Ox 98% on R/A; Weight 77.11 kg; Height 5 ft. 2 ap3 in. ; Pain 10/10; 07:16 Body Mass Index 31.09 (77.11 kg, 157.48 cm) ap3 07:16 Pain Scale: Adult ap3 MDM: 07:18 Patient medically screened. rt 10:22 Differential Diagnosis. rt 11:55 Data reviewed: vital signs, nurses notes, lab test result(s), EKG, radiologic studies. rt I considered the following discharge prescriptions or medication management in the emergency department Medications were administered in the Emergency Department. See MAR. Independent interpretation of the following test(s) in the Emergency Department CT Scan: My interpretation is No bowel obstruction syndrome interpretation of CT scan images. Counseling: I had a detailed discussion with the patient and/or guardian regarding the historical points, exam findings, and any diagnostic results supporting the discharge/admit diagnosis, lab results, radiology results, the need for outpatient follow up, to return to the emergency department if symptoms worsen or persist or if there are any questions or concerns that arise at home. Response to treatment: the patient's symptoms have markedly improved after treatment, Patient had large bowel movement in the ED, significantly improved her symptoms. 08/28 07:21 Order name: CBC with Diff; Complete Time: 09:35 rt 08/28 07:21 Order name: CMP; Complete Time: :35 rt 08/28 07:21 Order name: Lipase; Complete Time: 09:35 rt 08/28 07:21 Order name: CT Abd/Pelvis - IV Contrast Only; Complete Time: 09:35 rt 08/28 07:24 Order name: EKG; Complete Time: 07:24 rt 08/28 07:21 Order name: IV Saline Lock; Complete Time: 07: rt 08/28 07:21 Order name: Labs collected and sent; Complete Time: 07: rt 08/28 07:24 Order name: EKG - Nurse/Tech; Complete Time: 07:32 rt EC: Rate is 66 beats/min. Rhythm is regular, 1st Degree Block with No ectopy. QRS [place] is rt Normal. [place] interval is normal. QRS interval is normal. QT interval is normal. No Q waves. T waves are Normal. No ST changes noted. Interpreted by me. Administered Medications: 07:41 Drug: Promethazine IVP 12.5 mg IVP once Route: IVP; Site: right antecubital; aa5 10:26 Follow up: Response: No adverse reaction; Nausea is decreased ap3 07:42 Drug: NS 0.9% IV 1000 ml IV at 1 bolus Per protocol; 1000 mL bolus Route: IV; Rate: 1 aa5 bolus; Site: right antecubital; 10:26 Follow up: IV Status: Completed infusion; IV Intake: 1000ml ap3 07:43 Drug: fentaNYL (PF) IVP 50 mcg IVP once Route: IVP; Site: right antecubital; aa5 10:26 Follow up: Response: No adverse reaction; Pain is decreased ap3 Disposition Summary: 08/29/23 09:42 Discharge Ordered Notes: Location: Home rt Problem: new rt Symptoms: are resolved rt Condition: Stable rt Diagnosis - Constipation, unspecified rt Followup: rt - With: Private Physician - When: 2 - 3 days - Reason: Discharge Instructions: - Discharge Summary Sheet rt - Constipation, Adult rt Forms: - Medication Reconciliation Form rt - Antibiotic Education rt - Prescription Opioid Use rt - Patient Portal Instructions rt - Leadership Thank You Letter rt Prescriptions: - ondansetron 4 mg Oral Tablet,disintegrating - take 1 tablet ORAL route every 6 hours as needed for nausea and vomiting; 15 rt tablet; Refills: 0, Product Selection Permitted Signatures: Dispatcher [employer] EDCordelia Bueno, RN RN aa5 Ivis Gonzalez RN RN ap3 Doug Schneider MD MD rt Corrections: (The following items were deleted from the chart) 07:21 07:21 CBC+H.LAB.BRZ ordered. EDMS EDMS 07:21 07:21 COMPREHENSIVE METABOLIC PANEL+C.LAB.BRZ ordered. EDMS EDMS 07:21 07:21 LIPASE+C.LAB.BRZ ordered. EDMS EDMS 07:21 07:21 Abdomen Pelvis W Con+CT.RAD.BRZ ordered. EDMS EDMS
[2023-08-29 11:29] VITALS: BP 151/68; O2SAT 98
--- NOTE | 2023-09-01 13:11 | EKG ---
Test Date: 2023-08-29 Test Time: 07:16:12 [employer] Solutions Architect: MARK MEASUREMENT RESULTS: Intervals: Rate: 66 DE: 216 QRSD: 82 QT: 416 QTc: 436 [place]: P: 62 DE: 216 QRS: 17 T: 55 INTERPRETIVE STATEMENTS: Sinus rhythm with 1st degree AV block Otherwise normal ECG Compared to ECG 07/26/2023 14:38:37 No significant changes Electronically Signed On 09-01-23 13:04:15 CDT by Cristopher Shepherd
== END 2023-08-29 11:15 | disposition home or self-care (01) ==
LOC: ER 07:08
DX: K59.00 Constipation, unspecified (principal)
CPT/HCPCS: 96361; 85025; 36415; 83690; 80053; 74177; 96375; 96374; 99284; Q9967; J2550; J3010; J7030; 93005

== ENCOUNTER 2023-12-03 10:35 | Emergency (ER) | payer OTHER ==
[2023-12-03 11:38] LABS: Absolute Basophils 0.1 K/uL (0-0.5); Absolute Eosinophils 0.3 K/uL (0-0.5); Absolute Lymphocytes (CBC) 1.5 K/uL (0.7-4.9); Absolute Monocytes 0.6 K/uL (0.1-1.3); Absolute Neutrophil 3.9 K/uL (1.8-8.0); Basophils % 0.8 % (0-1.3); Eosinophils % 5.2 % (0-4.4); Hematocrit 26.5 % (36.0-45.0); Hemoglobin 8.3 g/dL (12.0-15.0); Lymphocytes % 23.7 % (15.3-44.8); MCH 23.3 pg (27.0-35.0); MCHC 31.2 g/dL (32.0-36.0); MCV 74.6 fL (80-100); MPV 8.1 fL (7.6-11.3); Monocytes % 9.6 % (3.3-12.3); Neutrophils % 60.7 % (41.7-73.7); Platelets 302 thou/uL (152-406); RBC Red Blood Cell Count 3.55 M/uL (3.86-4.86); Red Cell Distribution Width 16.8 % (12.1-15.2)
[2023-12-03 11:53] LABS: Anion Gap 7.6 mEq/L (5.0-15.0); Potassium 3.6 mEq/L (3.5-5.1); Troponin High Sensitivity 5.5 pg/mL (<58.9)
--- NOTE | 2023-12-03 12:14 | ER ---
Nurse's Notes [facility] Name: Blanka Parker Age: 78 yrs Sex: Female : 1945 Arrival Date: 12/03/2023 Time: 10:35 Bed 18 Private MD: Diagnosis: Anemia, unspecified;Lab error Presentation: 12/02 11:04 Chief complaint: Patient states: STATES SENT BY PCP DUE TO HEMOGLOBIN WAS 7. LABS TAKEN db ON FRIDAY. Coronavirus screen: Client denies travel out of the [place] in the last 14 days. At this time, the client does not indicate any symptoms associated with coronavirus-19. Ebola Screen: Patient negative for fever greater than or equal to 101.5 degrees Fahrenheit, and additional compatible Ebola Virus Disease symptoms Patient denies exposure to infectious person. Patient denies travel to an Ebola-affected area in the 21 days before illness onset. No symptoms or risks identified at this time. Initial Sepsis Screen: Does the patient meet any 2 criteria? No. Patient's initial sepsis screen is negative. Does the patient have a suspected source of infection? No. Patient's initial sepsis screen is negative. Risk Assessment: Do you want to hurt yourself or someone else? Patient reports no desire to harm self or others. Onset of symptoms was December 03, 2023. 11:04 Method Of Arrival: Ambulatory db 11:04 Acuity: PETEY 3 db Triage Assessment: 11:07 General: Appears in no apparent distress. comfortable, Behavior is calm, cooperative. db Pain: Complains of pain in back, right hand and left hand. Neuro: Level of Consciousness is awake, alert, obeys commands, Oriented to person, place, time, situation. Respiratory: Airway is patent Respiratory effort is even, unlabored, Respiratory pattern is regular, symmetrical. Historical: - Allergies: 11:07 Codeine; db 11:07 COLLAGENASE; db 11:07 Demerol; db 11:07 hydromorphone; db 11:07 Lidocaine; db 11:07 PENICILLINS; db 11:07 Sulfa (Sulfonamide Antibiotics); db 11:07 venlafaxine; db 11:07 Zanaflex; db - PMHx: 11:07 Anxiety; degenerative joint disease; GERD; High Cholesterol; Hypertension; db Diverticulitis; - PSHx: 11:07 Appendectomy; Cholecystectomy; bladder sling; hysterectomy; neck fusion X 2; back; db Right hip; - Immunization history:: Adult Immunizations unknown. - Infectious Disease History:: Denies. - Social history:: Smoking status: Patient denies any tobacco usage or history of. Screenin:28 [facility] ED Fall Risk Assessment (Adult) History of falling in the last 3 months, cm10 including since admission No falls in past 3 months (0 pts) Confusion or Disorientation No (0 pts) Intoxicated or Sedated No (0 pts) Impaired Gait No (0 pts) Mobility Assist Device Used No (0 pt) Altered Elimination No (0 pt) Score/Fall Risk Level 0 - 2 = Low Risk Oriented to surroundings, Maintained a safe environment, Provided non-skid footwear. Abuse screen: Denies threats or abuse. Denies injuries from another. Nutritional screening: No deficits noted. Tuberculosis screening: No symptoms or risk factors identified. Assessment: 11:27 General: Appears in no apparent distress. comfortable, Behavior is calm, cooperative. cm10 Neuro: No deficits noted. Level of Consciousness is awake, alert, obeys commands, Oriented to person, place, time, situation, Appropriate for age. Cardiovascular: No deficits noted. Patient's skin is warm and dry. Respiratory: No deficits noted. Reports shortness of breath on exertion Airway is patent Respiratory effort is even, unlabored, Respiratory pattern is regular, symmetrical, Breath sounds are clear bilaterally. Derm: No deficits noted. Skin is healthy with good turgor, Skin is pink, warm \T\ dry. Musculoskeletal: Range of motion: intact in all extremities. Vital Signs: 11:04 BP 117 / 59; Pulse 80; Resp 16; Temp 99.4(O); Pulse Ox 100% ; Weight 79.38 kg; Height 5 db ft. 1 in. ; 12:00 BP 141 / 66; Pulse 70; Resp 15; Pulse Ox 98% on R/A; cm10 11:04 Body Mass Index 33.07 (79.38 kg, 154.94 cm) db ED Course: 10:38 Patient arrived in ED. mr 10:56 Leslie Gross MD is Attending Physician. sd2 11:06 Lenka Almaraz, SCOTTIE is Primary Nurse. cm10 11:07 Triage completed. db 11:07 Arm band placed on Patient placed in an exam room. db 11:26 Type And Screen Sent. cm10 11: BMP Sent. cm10 11: CBC with Diff Sent. cm10 11: Initial lab(s) drawn, by me, sent to lab. T\T\S collected, blood band applied to patient. cm10 Inserted saline lock: 20 gauge in left antecubital area, using aseptic technique. Blood collected. Flushed with 10 mL NS. 11:28 Patient has correct armband on for positive identification. Bed in low position. Call cm10 light in reach. Side rails up X 1. Client placed on continuous cardiac and pulse oximetry monitoring. NIBP monitoring applied. 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 Door closed. Warm blanket given. Pillow given. :33 EKG done, by ED staff, reviewed by Leslie Gross MD. cm10 12:28 Provided Education on: Follow-up instructions. cm10 12:28 No provider procedures requiring assistance completed. IV discontinued, intact, cm10 bleeding controlled, No redness/swelling at site. Pressure dressing applied. Administered Medications: No medications were administered Medication: 11:28 VIS not applicable for this client. cm10 Outcome: 12:13 Discharge ordered by . sd2 12:28 Discharged to home ambulatory, cm10 12:28 Condition: good 12:28 Discharge instructions given to patient, Instructed on discharge instructions, follow up and referral plans. Demonstrated understanding of instructions, follow-up care, 12:28 Patient left the ED. cm10 Signatures: Alida Medel, Reg Reg mr Leslie Gross MD MD sd2 Tatyana Villalobos, RN RN Lenka Pearl RN RN cm10 Corrections: (The following items were deleted from the chart) 11:33 11: Troponin High Sensitivity+C.LAB.BRZ drawn and sent. cm10 EDMS
--- NOTE | 2023-12-03 12:14 | EDPHYS ---
Physician Documentation [facility] Name: Blanka Parker Age: 78 yrs Sex: Female : 1945 Arrival Date: 12/03/2023 Time: 10:35 Bed 18 Private MD: ED Physician Leslie Gross HPI: 12/02 11:16 This 78 yrs old Female presents to ER via Ambulatory with complaints of Abnormal Lab sd2 Results. 11:16 78 yo F presents with CC of abnormal lab with Hgb 7 taken outpatient on Friday this sd2 week. She reports a hx of anemia in the past but has only required blood transfusions in the setting of surgery. She denies any bleeding and had a recent EGD that was normal. Also reports intermittent lightheadedness for the past 6 months which her doctor is aware of.. Historical: - Allergies: 11:07 Codeine; db 11:07 COLLAGENASE; db 11:07 Demerol; db 11:07 hydromorphone; db 11:07 Lidocaine; db 11:07 PENICILLINS; db 11:07 Sulfa (Sulfonamide Antibiotics); db 11:07 venlafaxine; db 11:07 Zanaflex; db - PMHx: 11:07 Anxiety; degenerative joint disease; GERD; High Cholesterol; Hypertension; db Diverticulitis; - PSHx: 11:07 Appendectomy; Cholecystectomy; bladder sling; hysterectomy; neck fusion X 2; back; db Right hip; - Immunization history:: Adult Immunizations unknown. - Infectious Disease History:: Denies. - Social history:: Smoking status: Patient denies any tobacco usage or history of. ROS: 11:16 Constitutional: Negative for fever, chills, and weight loss, Eyes: Negative for injury, sd2 pain, redness, and discharge, Cardiovascular: Negative for chest pain, palpitations, and edema, Respiratory: Negative for shortness of breath, cough, wheezing. Abdomen/GI: Negative for abdominal pain, nausea, vomiting, diarrhea. MS/Extremity: Negative for injury and deformity, Skin: Negative for injury, rash, and discoloration, Neuro: Negative for headache, numbness and tingling. Exam: 11:16 Constitutional: This is a well developed, well nourished patient who is awake, alert, sd2 and in no acute distress. Head/Face: Normocephalic, atraumatic. Eyes: EOMI, normal conjunctiva bilaterally Chest/axilla: Normal chest wall appearance and motion. Nontender with no deformity. Cardiovascular: Regular rate and rhythm with a normal S1 and S2. No gallops, murmurs, or rubs. 2+ distal pulses. Respiratory: Lungs have equal breath sounds bilaterally, clear to auscultation and percussion. No rales, rhonchi or wheezes noted. No increased work of breathing, no retractions or nasal flaring. Abdomen/GI: Soft, non-tender, with normal bowel sounds. No guarding or rebound. No evidence of tenderness throughout. Skin: Warm, dry with normal turgor. Normal color with no rashes, no lesions, and no evidence of cellulitis. MS/ Extremity: Pulses equal, no cyanosis. Neurovascular intact. Full, normal range of motion. Psych: Awake, alert, with orientation to person, place and time. Behavior, mood, and affect are within normal limits. 11:40 ECG was reviewed by the Attending Physician. NSR, rate 68, no STEMI criteria sd2 Vital Signs: 11:04 BP 117 / 59; Pulse 80; Resp 16; Temp 99.4(O); Pulse Ox 100% ; Weight 79.38 kg; Height 5 db ft. 1 in. ; 12:00 BP 141 / 66; Pulse 70; Resp 15; Pulse Ox 98% on R/A; cm10 11:04 Body Mass Index 33.07 (79.38 kg, 154.94 cm) db MDM: 11:16 Patient medically screened. sd2 11:16 Differential Diagnosis dehydration, anemia, electrolyte abnormality, lab error, ACS sd2 among others. Data reviewed: vital signs, nurses notes, lab test result(s), EKG. Historians other than the Patient: Spouse/Significant Other: at BS. Care significantly affected by the following chronic conditions: Hypertension, Anemia. 12:12 Counseling: I had a detailed discussion with the patient and/or guardian regarding the sd2 historical points, exam findings, and any diagnostic results supporting the discharge/admit diagnosis, lab results, the need for outpatient follow up, to return to the emergency department if symptoms worsen or persist or if there are any questions or concerns that arise at home. ED course: Labs grossly WNCL. Hgb at baseline and not below threshold for transfusion. Pt advised of results and need for continued outpatient follow up for symptoms. Verbalizes understanding of discharge plan and strict return precautions. . 12/02 11:16 Order name: CBC with Diff; Complete Time: 12:11 sd2 12/02 11:16 Order name: BMP; Complete Time: 12:11 sd2 12/02 11:16 Order name: Type And Screen; Complete Time: 12:21 sd2 12/02 11:33 Order name: Troponin High Sensitivity; Complete Time: 12:11 EDMS 12/02 11:19 Order name: EKG - Nurse/Tech; Complete Time: 11:33 sd2 Administered Medications: No medications were administered Disposition Summary: 12/03/23 12:13 Discharge Ordered Problem: new sd2 Symptoms: are resolved sd2 Condition: Stable sd2 Diagnosis - Anemia, unspecified sd2 - Lab error sd2 Followup: sd2 - With: Private Physician - When: 2 - 3 days - Reason: Recheck today's complaints, Continuance of care, Re-evaluation by your physician Discharge Instructions: - Discharge Summary Sheet sd2 - Anemia sd2 Forms: - Medication Reconciliation Form sd2 - Antibiotic Education sd2 - Prescription Opioid Use sd2 - Patient Portal Instructions sd2 - Leadership Thank You Letter sd2 Signatures: Dispatcher [employer] EDLeslie Adams MD MD sd2 Tatyana Villalobos RN RN db Corrections: (The following items were deleted from the chart) 11:33 11:19 Troponin High Sensitivity+C.LAB.BRZ ordered. [facility]
[2023-12-03 12:46] VITALS: TEMP 99.4
[2023-12-03 12:52] VITALS: BP 141/66; O2SAT 98
--- NOTE | 2023-12-04 12:11 | EKG ---
Test Date: 2023-12-03 Test Time: 11:31:03 Economic Manager: FABIANA MEASUREMENT RESULTS: Intervals: Rate: 68 OR: 210 QRSD: 80 QT: 440 QTc: 467 [place]: P: 87 OR: 210 QRS: 21 T: 67 INTERPRETIVE STATEMENTS: Sinus rhythm with 1st degree AV block Otherwise normal ECG Compared to ECG 08/29/2023 07:16:12 No significant changes Electronically Signed On 12-04-23 12:08:57 CDT by Nikolay Mobley
== END 2023-12-03 12:28 | disposition home or self-care (01) ==
LOC: ER 10:35
DX: D64.9 Anemia, unspecified (principal); I10 Essential (primary) hypertension; E78.00 Pure hypercholesterolemia, unspecified; F41.9 Anxiety disorder, unspecified
CPT/HCPCS: 36415; 80048; 84484; 85025; 86850; 86900; 86901; 93005; 99284

== ENCOUNTER 2024-05-26 22:38 | Inpatient (IN) | payer OTHER ==
[2024-05-26 23:36] LABS: Absolute Eosinophils 0.2 K/uL (0-0.5); Absolute Lymphocytes (CBC) 2.3 K/uL (0.7-4.9); Absolute Monocytes 0.8 K/uL (0.1-1.3); Absolute Neutrophil 3.5 K/uL (1.8-8.0); Basophils % 0.6 % (0-1.3); Hematocrit 28.9 % (36.0-45.0); Hemoglobin 9.4 g/dL (12.0-15.0); Lymphocytes % 33.5 % (15.3-44.8); MCH 24.7 pg (27.0-35.0); MCHC 32.5 g/dL (32.0-36.0); MPV 7.8 fL (7.6-11.3); Monocytes % 12.1 % (3.3-12.3); Neutrophils % 50.8 % (41.7-73.7); Nucleated Red Blood Cells % 0.1 % (0-0); Platelets 281 thou/uL (152-406); Red Cell Distribution Width 16.9 % (12.1-15.2)
[2024-05-26 23:37] LABS: PT Prothrombin Time 13.5 SECONDS (10-13.0); Protime INR 1.19
[2024-05-27] LABS: ALT/SGPT 19 U/L (13-56); AST/SGOT 12 U/L (15-37); Albumin 3.3 g/dL (3.4-5.0); Albumin/Globulin Ratio 0.9 (1.1-1.8); Alkaline Phosphatase 84 U/L (45-117); Anion Gap 11.4 mEq/L (5.0-15.0); BUN Blood Urea Nitrogen 13 mg/dL (7-18); Bicarbonate 26 mEq/L (21-32); Bilirubin Total 0.2 mg/dL (0.2-1.0); Globulin 3.5 g/dL (2.3-3.5); Glomerular Filtration Rate 54 ml/min (=/>90); Glucose Level 92 mg/dL (74-106); Magnesium 1.7 mg/dL (1.6-2.4); NT PRO-BNP 94 pg/mL (<450); Potassium 3.4 mEq/L (3.5-5.1); Protein, Total 6.8 g/dL (6.4-8.2); Sodium Level 141 mEq/L (136-145); Troponin High Sensitivity 6.5 pg/mL (<58.9)
[2024-05-27 00:01] LABS: Bilirubin Direct < 0.2 mg/dL (0-0.2)
[2024-05-27] MEDS ORDERED: ENOXAPARIN 80 MG/0.8 ML SQ ONE (00:04)
[2024-05-27] MEDS ORDERED: MAGNES/ALUMIN/SIMET 30ML UCUP ONE (00:05)
--- NOTE | 2024-05-27 02:13 | EDPHYS ---
Physician Documentation [facility] Name: Blanka Parker Age: 78 yrs Sex: Female : 1945 Arrival Date: 05/26/2024 Time: 22:38 Bed 7 Private MD: ED Physician Johnny Anthony HPI: 05/27 02:11 This 78 yrs old Female presents to ER via EMS with complaints of Palpitations.sp4 05/28 01:44 Patient is a very pleasant 78-year-old female who presents with acute onset of sp4 tachycardia palpitation and chest pain.. Historical: - Allergies: 05/26 22:47 Codeine; dd2 22:47 COLLAGENASE; dd2 22:47 Demerol; dd2 22:47 hydromorphone; dd2 22:47 Lidocaine; dd2 22:47 PENICILLINS; dd2 22:47 Sulfa (Sulfonamide Antibiotics); dd2 22:47 venlafaxine; dd2 22:47 Zanaflex; dd2 - PMHx: 22:47 Anxiety; degenerative joint disease; Diverticulitis; GERD; High Cholesterol; dd2 Hypertension; - PSHx: 22:47 Appendectomy; back; bladder sling; Cholecystectomy; hysterectomy; neck fusion X 2; dd2 Right hip; - Immunization history:: Adult Immunizations up to date. - Infectious Disease History:: Denies. - Social history:: Smoking status: Patient reports the use of cigarette tobacco products, denies chronic smoking, but will smoke occasionally. - Family history:: not pertinent. ROS: 05/28 01:44 Constitutional: Negative for fever, chills, and weight loss, positive tachycardia sp4 positive chest pain positive palpitations All other systems are negative, Exam: 01:44 Constitutional: This is a well developed, well nourished patient who is awake, alert, sp4 and in no acute distress. Head/Face: Normocephalic, atraumatic. Eyes: Pupils equal round and reactive to light, extra-ocular motions intact. Lids and lashes normal. Conjunctiva and sclera are not injected. Cornea within normal limits. Periorbital areas with no swelling, redness, or edema. ENT: Nares patent. No nasal discharge, no septal abnormalities noted. Tympanic membranes are normal and external auditory canals are clear. Oropharynx with no redness, swelling, or masses, exudates, or evidence of obstruction, uvula midline. Mucous membranes moist. Neck: Trachea midline, no thyromegaly or masses palpated, and no cervical lymphadenopathy. Supple, full range of motion without nuchal rigidity, or vertebral point tenderness. Chest/axilla: Normal chest wall appearance and motion. Nontender with no deformity. No lesions are appreciated. Cardiovascular: Regular rate and rhythm with a normal S1 and S2. No gallops, murmurs, or rubs. Normal PMI, no JVD. No pulse deficits. Respiratory: Lungs have equal breath sounds bilaterally, clear to auscultation and percussion. No rales, rhonchi or wheezes noted. No increased work of breathing, no retractions or nasal flaring. Abdomen/GI: Soft, with normal bowel sounds. No distension or tympany. No guarding or rebound. No evidence of tenderness throughout. Back: No spinal tenderness. No costovertebral tenderness. Skin: Warm, dry with normal turgor. Normal color with no rashes, no lesions, and no evidence of cellulitis. MS/ Extremity: Pulses equal, no cyanosis. Neurovascular intact. Full, normal range of motion. Neuro: Awake and alert, GCS 15, oriented to person, place, time, and situation. Cranial nerves II-XII grossly intact. Motor strength 5/5 in all extremities. Sensory grossly intact. Psych: Awake, alert, with orientation to person, place and time. Behavior, mood, and affect are within normal limits 01:44 ECG was reviewed by the Attending Physician. [place]KG at 2243 Vital Signs: 05/26 22:43 BP 124 / 70; Pulse 75; Resp 16; Temp 98.4; Pulse Ox 100% on R/A; Weight 80.74 kg (M); dd2 Pain 3/10; 23:30 BP 134 / 70; Pulse 88; Resp 16; Pulse Ox 99% on R/A; dd2 05/27 00:05 BP 126 / 66; Pulse 78; Resp 16; Pulse Ox 98% on R/A; dd2 00:30 BP 129 / 75; Pulse 79; Resp 17; Pulse Ox 100% on R/A; dd2 00:30 BP 129 / 67; Pulse 74; Resp 16; Pulse Ox 100% on R/A; dd2 01:45 BP 130 / 65; Pulse 74; Resp 15; Pulse Ox 98% on R/A; dd2 02:30 BP 129 / 62; Pulse 71; Resp 16; Pulse Ox 99% on R/A; dd2 03:30 BP 128 / 66; Pulse 70; Resp 16; Pulse Ox 97% on R/A; dd2 04:25 BP 132 / 68; Pulse 69; Resp 17; Pulse Ox 99% on R/A; dd2 05/26 22:43 Pain Scale: Adult dd2 [place] Coma Score: 05/26 22:50 Eye Response: spontaneous(4). Motor Response: obeys commands(6). Verbal Response: dd2 oriented(5). Total: 15. 05/28 01:44 Eye Response: spontaneous(4). Motor Response: obeys commands(6). Verbal Response: sp4 oriented(5). Total: 15. MDM: 05/26 22:44 Medical Screening Exam initiated sp4 05/27 02:13 ED course: EXAM: XR Chest, 1 View CLINICAL HISTORY: The patient is 78 years old and is sp4 Female; CHEST PAIN TECHNIQUE: Frontal view of the chest. COMPARISON: XR Chest dated March 13 2022 FINDINGS: LUNGS: Unremarkable. No consolidation. PLEURAL SPACE: Unremarkable. No pneumothorax. HEART: Unremarkable. No cardiomegaly. MEDIASTINUM: Unremarkable. Normal mediastinal contour. BONES/JOINTS: Multilevel degenerative change of the spine is present. No acute fracture. VASCULATURE: Atherosclerosis of the aorta is present. UPPER ABDOMEN: Unremarkable as visualized. IMPRESSION: No acute cardiopulmonary process.. 05/28 01:47 Differential diagnosis: arrythmia, dehydration, stress disorder, Atrial fibrillation. sp4 Data reviewed: vital signs, nurses notes, EMS record, lab test result(s), EKG, radiologic studies, plain films. Consideration of Admission/Observation Patient was admitted/placed on observation. Escalation of care including admission/observation considered. Management of patient was discussed with the following: Hospitalist: Diego MERAZ . 05/26 22:44 Order name: Basic Metabolic Panel; Complete Time: 02:08 sp4 05/26 22:44 Order name: CBC with Diff; Complete Time: 02:08 sp4 05/26 22:44 Order name: LFT's; Complete Time: 02:08 sp4 05/26 22:44 Order name: Magnesium; Complete Time: 02:08 4 05/26 22:44 Order name: NT PRO-BNP; Complete Time: 02:08 4 05/26 22:44 Order name: PT-INR; Complete Time: 02:08 4 05/26 22:44 Order name: Troponin HS; Complete Time: 02:08 sp4 05/27 02:22 Order name: Urinalysis w/ reflexes EDMS 05/27 02:22 Order name: CBC with Automated Diff EDMS 05/27 02:22 Order name: CBC with Automated Diff EDMS 05/27 02:22 Order name: Comprehensive Metabolic Panel EDMS 05/27 02:22 Order name: Comprehensive Metabolic Panel EDMS 05/27 02:22 Order name: Troponin High Sensitivity EDMS 05/27 02:22 Order name: Troponin High Sensitivity EDMS 05/27 02:22 Order name: Troponin High Sensitivity EDMS 05/27 02:23 Order name: Troponin High Sensitivity EDMS 05/27 02:23 Order name: Troponin High Sensitivity EDMS 05/27 02:23 Order name: Troponin High Sensitivity EDMS 05/27 02:23 Order name: Troponin High Sensitivity EDMS 05/26 22:44 Order name: XRAY Chest (1 view) [facility] 05/26 22:44 Order name: EKG; Complete Time: 22:44 [facility] 05/26 23:42 Order name: EKG; Complete Time: 23:43 [facility] 05/26 22:44 Order name: Cardiac monitoring; Complete Time: 22:49 [facility] 05/26 22:44 Order name: EKG - Nurse/Tech; Complete Time: 22:49 [facility] 05/26 22:44 Order name: IV Saline Lock; Complete Time: 22:53 4 05/26 22:44 Order name: Labs collected and sent; Complete Time: 22:53 4 05/26 22:44 Order name: O2 Per Protocol; Complete Time: 22:50 [facility] 05/26 22:44 Order name: O2 Sat Monitoring; Complete Time: 22:50 [facility] 05/26 23:42 Order name: EKG - Nurse/Tech; Complete Time: 00:35 4 05/27 02:47 Order name: Misc. Order: 0230 TROPONIN; Complete Time: 03:37 vc1 EC/19 22:43 Rate is 80 beats/min. Rhythm is irregularly irregular, A fib. QRS [place] is Normal. QRS sp4 interval is normal. QT interval is normal. No Q waves. T waves are Normal. No ST changes noted. Clinical impression: Atrial Fibrillation. Interpreted by me. Reviewed by me. Administered Medications: 05/27 00:09 Drug: Enoxaparin Sub-Q 80 mg Sub-Q once Route: Sub-Q; Site: right lower abdomen; dd2 00:09 Drug: Alum-Mag Hydroxide-Simeth PO Suspension (200 mg-200 mg-20 mg/5 mL) 30 ml PO once dd2 Route: PO; 02:20 Drug: traMADol PO 50 mg PO once Route: PO; dd2 02:20 Drug: Methocarbamol PO 750 mg PO once Route: PO; dd2 Disposition Summary: 05/27/24 02:13 Hospitalization Ordered Notes: Hospitalization Status: Inpatient Admission sp4 Provider: Ed Cortez Location: Telemetry/MedSurg (Inpatient) sp4 Condition: Stable sp4 Problem: new sp4 Symptoms: have improved sp4 Bed/Room Type: Standard sp4 Room Assignment: 413(05/27/24 04:22) rv1 Diagnosis - Paroxysmal atrial fibrillation sp4 - Unstable angina sp4 Forms: - Medication Reconciliation Form sp4 - SBAR form sp4 - Leadership Thank You Letter sp4 Signatures: Dispatcher [employer] EDMS Ariane Walsh RN RN vc1 Mila Osullivan rv1 Johnny Anthony MD MD sp4 LOVE ANDRES RN RN dd2 Corrections: (The following items were deleted from the chart) 04:22 02:13 sp4 rv1
--- NOTE | 2024-05-27 02:13 | ER ---
Nurse's Notes [facility] Name: Blanka Parker Age: 78 yrs Sex: Female : 1945 Arrival Date: 05/26/2024 Time: 22:38 Bed 7 Private MD: Diagnosis: Paroxysmal atrial fibrillation;Unstable angina Presentation: 05/26 22:43 Chief complaint: EMS states: TONED OUT FOR PALPITATIONS. 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 Coronavirus screen: At this time, the client does not indicate any symptoms associated with coronavirus-19. Ebola Screen: No symptoms or risks identified at this time. Initial Sepsis Screen: Does the patient meet any 2 criteria? No. Patient's initial sepsis screen is negative. Does the patient have a suspected source of infection? No. Patient's initial sepsis screen is negative. Risk Assessment: Do you want to hurt yourself or someone else? Patient reports no desire to harm self or others. Onset of symptoms was May 26, 2024. Care prior to arrival: Medication(s) given: ASA, 325 mg, IV initiated. 20 GA, in the right antecubital area. 22:43 Method Of Arrival: EMS: [facility] dd2 22:43 Acuity: PETEY 3 dd2 Triage Assessment: 22:47 General: Appears in no apparent distress. comfortable, Behavior is calm, cooperative, dd2 appropriate for age. Pain: Complains of pain in mid-sternal area Pain does not radiate. Pain currently is 3 out of 10 on a pain scale. Quality of pain is described as pressure, Pain began 30 min ago. EENT: No deficits noted. No signs and/or symptoms were reported regarding the EENT system. Neuro: [place] Agitation-Sedation Scale (RASS): 0 - Alert and Calm Level of Consciousness is awake, alert, obeys commands, Oriented to person, place, time, situation, Appropriate for age. Cardiovascular: Reports chest pain, palpitations, Heart tones S1 S2 present Capillary refill < 3 seconds Patient's skin is warm and dry. Rhythm is irregular. Respiratory: Airway is patent Respiratory effort is even, unlabored, Respiratory pattern is regular, symmetrical, Breath sounds are clear bilaterally. GI: Abdomen is non-distended, obese, Abd is soft and non tender X 4 quads. : No deficits noted. No signs and/or symptoms were reported regarding the genitourinary system. Derm: No deficits noted. No signs and/or symptoms reported regarding the dermatologic system. Skin is intact, Skin is dry, Skin is normal, Skin temperature is warm. Musculoskeletal: No deficits noted. No signs and/or symptoms reported regarding the musculoskeletal system. Circulation, motion, and sensation intact. Range of motion: intact in all extremities. Historical: - Allergies: 22:47 Codeine; dd2 22:47 COLLAGENASE; dd2 22:47 Demerol; dd2 22:47 hydromorphone; dd2 22:47 Lidocaine; dd2 22:47 PENICILLINS; dd2 22:47 Sulfa (Sulfonamide Antibiotics); dd2 22:47 venlafaxine; dd2 22:47 Zanaflex; dd2 - PMHx: 22:47 Anxiety; degenerative joint disease; Diverticulitis; GERD; High Cholesterol; dd2 Hypertension; - PSHx: 22:47 Appendectomy; back; bladder sling; Cholecystectomy; hysterectomy; neck fusion X 2; dd2 Right hip; - Immunization history:: Adult Immunizations up to date. - Infectious Disease History:: Denies. - Social history:: Smoking status: Patient reports the use of cigarette tobacco products, denies chronic smoking, but will smoke occasionally. - Family history:: not pertinent. Screenin:50 [facility] ED Fall Risk Assessment (Adult) History of falling in the last 3 months, dd2 including since admission No falls in past 3 months (0 pts) Confusion or Disorientation No (0 pts) Intoxicated or Sedated No (0 pts) Impaired Gait No (0 pts) Mobility Assist Device Used No (0 pt) Altered Elimination No (0 pt) Score/Fall Risk Level 0 - 2 = Low Risk Oriented to surroundings, Maintained a safe environment, Educated pt \T\ family on fall prevention, incl call for assistance when getting out of bed, Assessed \T\ reinforced patient's understanding of fall precautions, Hourly rounding (assess needs \T\ fall precautionary measures) done. Abuse screen: Denies threats or abuse. Denies injuries from another. Nutritional screening: No deficits noted. Tuberculosis screening: No symptoms or risk factors identified. Assessment: 22:50 Reassessment: SEE TRIAGE ASSESSMENT FOR FULL ASSESSMENT. dd2 Vital Signs: 22:43 BP 124 / 70; Pulse 75; Resp 16; Temp 98.4; Pulse Ox 100% on R/A; Weight 80.74 kg (M); dd2 Pain /; 23:30 BP 134 / 70; Pulse 88; Resp 16; Pulse Ox 99% on R/A; dd2 05/27 00:05 BP 126 / 66; Pulse 78; Resp 16; Pulse Ox 98% on R/A; dd2 00:30 BP 129 / 75; Pulse 79; Resp 17; Pulse Ox 100% on R/A; dd2 00:30 BP 129 / 67; Pulse 74; Resp 16; Pulse Ox 100% on R/A; dd2 01:45 BP 130 / 65; Pulse 74; Resp 15; Pulse Ox 98% on R/A; dd2 02:30 BP 129 / 62; Pulse 71; Resp 16; Pulse Ox 99% on R/A; dd2 03:30 BP 128 / 66; Pulse 70; Resp 16; Pulse Ox 97% on R/A; dd2 04:25 BP 132 / 68; Pulse 69; Resp 17; Pulse Ox 99% on R/A; dd2 05/26 22:43 Pain Scale: Adult dd2 [place] Coma Score: 05/26 22:50 Eye Response: spontaneous(4). Motor Response: obeys commands(6). Verbal Response: dd2 oriented(5). Total: 15. 05/28 01:44 Eye Response: spontaneous(4). Motor Response: obeys commands(6). Verbal Response: sp4 oriented(5). Total: 15. ED Course: 05/26 22:41 Patient arrived in ED. rv1 22:43 LOVE ANDRES RN is Primary Nurse. dd2 22:43 Johnny Anthony MD is Attending Physician. sp4 22:47 Triage completed. dd2 22:47 Arm band placed on right wrist. Patient placed in an exam room, on a stretcher, on dd2 playground monitor, on pulse oximetry. EKG completed in triage. Results shown to MD. 22:50 Patient has correct armband on for positive identification. Bed in low position. Call dd2 light in reach. Side rails up X2. Client placed on continuous cardiac and pulse oximetry monitoring. NIBP monitoring applied. child monitor on. Door closed. Noise minimized. Warm blanket given. Pillow given. Verbal reassurance given. 22:50 EKG done, by ED staff. vk 22:50 No provider procedures requiring assistance completed. Maintain EMS IV. Dressing dd2 intact. Good blood return noted. Site clean \T\ dry. Gauge \T\ site: 20G RAC. Flushed with 10 mL NS. Patient maintains SpO2 saturation greater than 95% on room air. 23:49 XRAY Chest (1 view) In Process Unspecified. EDAZ 05/27 02:12 Ed Cortez MD is Hospitalizing Provider. sp4 05:23 Patient admitted, IV remains in place. kd3 05:24 Provided Education on: admission . kd3 Administered Medications: 00:09 Drug: Enoxaparin Sub-Q 80 mg Sub-Q once Route: Sub-Q; Site: right lower abdomen; dd2 00:09 Drug: Alum-Mag Hydroxide-Simeth PO Suspension (200 mg-200 mg-20 mg/5 mL) 30 ml PO once dd2 Route: PO; 02:20 Drug: traMADol PO 50 mg PO once Route: PO; dd2 02:20 Drug: Methocarbamol PO 750 mg PO once Route: PO; dd2 Medication: 05/26 22:50 VIS not applicable for this client. dd2 Outcome: 05/27 02:13 Decision to Hospitalize by Provider. sp4 05:23 Admitted to Med/surg accompanied by erick kd3 05:23 Condition: stable 05:23 Discharge instructions given to patient, Instructed on the need for admit, Demonstrated understanding of instructions, 05:24 Patient left the ED. kd3 Signatures: Dispatcher [employer] [facility] Génesis Brewer, RN RN kd3 Mila Osullivan Sergey, MD MD sp4 Kailey Zapata DIANA, RN RN dd2 Corrections: (The following items were deleted from the chart) 05/26 23:45 22:43 Care prior to arrival: IV initiated. 20 GA, in the right antecubital area, dd2 dd2
--- NOTE | 2024-05-27 02:16 | P.HP ---
Certification for Inpatient Patient admitted to: Inpatient With expected LOS: >2 Midnights Practitioner: I am a practitioner with admitting privileges, knowledge of patient current condition, hospital course, and medical plan of care. Services: Services provided to patient in accordance with Admission requirements found in Title 42 Section 412.3 of the Code of Federal Regulations Patient History Date of Service: 05/27/24 Reason for admission: Afib w RVR History of Present Illness: 78 yrs old Female with past medical history of anxiety, hyperlipidemia, hypertension, degenerative disc disease, history of diverticulitis, GERD, history of paroxysmal A-fib who was brought to ER with palpitations. And chest discomfort. Patient states that it is an insidious onset. She was outside smoking a cigarette when all of a sudden her heart palpitations started. It was irregularly irregular associated with some shortness of breath and heaviness in the chest. No radiation. No fever or chills. No sick contacts. Denies any diaphoresis. It was pressure-like feeling in the chest which subsided very quickly. EMS was called. And brought over to the ER. At the time of interview patient does not have any chest pain. Palpitations stopped and was seen as sinus rhythm. Patient was assessed in the ER and is admitted for further management of paroxysmal A-fib and chest discomfort. Allergies Hyxckwo-SQD-UaE Reductase Inhibitor [Oefuqjo-Kyg-Laa Reductase Inhibitor] Allergy (Unknown, Verified 09/03/22 06:31) Leg Cramps Sulfa (Sulfonamide Antibiotics) Allergy (Unknown, Verified 09/03/22 06:31) low blood pressure adhesive tape Allergy (Verified 09/03/22 06:31) Itching meperidine HCl [From Demerol] Allergy (Verified 09/03/22 06:31) Anaphylaxis Penicillins Allergy (Verified 09/03/22 06:31) Unknown tizanidine HCl [From Zanaflex] Allergy (Verified 09/03/22 06:31) Anaphylaxis lidocaine Adverse Reaction (Severe, Verified 09/03/22 06:31) syncope codeine [Codeine] Adverse Reaction (Verified 09/03/22 06:31) Palpitations Latex, Natural R Allergy (Uncoded 09/03/22 06:31) Unknown Home medications list reviewed: Yes Home Medications: Citalopram [Celexa*] 20 mg PO DAILY 12/01/13 Omeprazole [Prilosec] 40 mg PO DAILY 02/11/20 Amlodipine [Norvasc*] 10 mg PO DAILY 08/29/22 Alendronate Sodium [Binosto] 70 mg PO SEECOM 04/30/23 Ezetimibe [Zetia*] 10 mg PO DAILY 04/30/23 Metoprolol Tartrate [Lopressor*] 25 mg PO BID #60 tab 04/30/23 Valsartan 80 mg PO DAILY 04/30/23 Zolpidem Tartrate [Ambien*] 10 mg PO BEDTIME 04/30/23 - Past Medical/Surgical History Diabetic: No Past Medical History: Reviewed- Non-Contributory -: GERD -: HTN -: Hyperlipidemia -: Skin cancer -: DJD -: Insomnia -: Recurrent diverticulitis Past Surgical History: Reviewed- Non-Contributory -: lap beulah -: lap appy -: partial hyst -: foot surgery -: neck surgery -: back surgery -: Bladder suspension Psychosocial/ Personal History: Patient lives at home with her , adequate in-home care. - Family History Mother -: Lung disease, Other (see notes) Notes: emphysema, ALZHEIMERS Father -: Heart disease Notes: congenital Brother -: Other (see notes) Notes: ALZHEIMER'S Sister -: Other (see notes) Notes: ALZHEIMER'S - Social History Smoking Status: Current some day smoker Alcohol use: No CD- Drugs: No Caffeine use: No Review of Systems 10-point ROS is otherwise unremarkable Physical Examination - Vital Signs Temperature: 97.8 F Blood Pressure: 128/78 Pulse: 74 Respirations: 18 Pulse Ox (%): 94 - Physical Exam General: Alert, In no apparent distress, Oriented x3, Obese HEENT: Atraumatic, Normocephalic Neck: Supple Respiratory: Clear to auscultation bilaterally, Normal air movement Cardiovascular: Regular rate/rhythm, Normal S1 S2 Capillary refill: <2 Seconds Gastrointestinal: Soft and benign, W/out hepatosplenomegaly Musculoskeletal: No clubbing, No swelling Integumentary: No rashes Neurological: Normal speech, Normal strength at 5/5 x4 extr, Cranial nerves 3-12 intact Lymphatics: No axilla or inguinal lymphadenopathy - Studies Laboratory Data (last 24 hrs) 05/26/24 05/26/24 05/26/24 23:07 23:07 23:07 WBC 7.00 Hgb 9.4 L Hct 28.9 L Plt Count 281 PT 13.5 H INR 1.19 Sodium 141 Potassium 3.4 L BUN 13 Creatinine 1.05 H Glucose 92 Magnesium 1.7 Total Bilirubin 0.2 AST 12 L ALT 19 Alkaline Phosphatase 84 Assessment and Plan - Plan Paroxysmal A-fib A-fib with RVR Monitor closely under telemetry Cardiology consult Get an echocardiogram Chest pain rule out ACS Will trend cardiac enzymes Will monitor telemetry Started on aspirin and statin EKG did not show any acute changes suggestive of ischemia Cardiology consult Hypertension Antihypertensives titrated Continue home medications and titrate as needed Hyperlipidemia Continue statin GI/DVT prophylaxis Advanced directive full code Discharge Plan: Home Plan to discharge in: 48 Hours - Advance Directives Does patient have a Living Will: No Does patient have a Durable POA for Healthcare: No - Code Status/Comfort Care Code Status: Full Code Time Spent Managing Pts Care (In Minutes): 54
[2024-05-27] MEDS ORDERED: methocarbamoL 750 MG TAB ONE (02:17)
[2024-05-27] MEDS ORDERED: ACETAMINOPHEN 325 MG TABLET PO PRN (02:17)
[2024-05-27] MEDS ORDERED: TRAMADOL HCL 50 MG TAB ONE (02:17)
[2024-05-27] MEDS ORDERED: ONDANSETRON 4 MG/2 ML VIAL IV PRN (02:17)
[2024-05-27] MEDS: ZOLPIDEM TARTRATE 10 MG TABLET ONE (05:48)
--- NOTE | 2024-05-27 05:48 | RAD REPORT ---
EXAM: XR Chest, 1 View CLINICAL HISTORY: The patient is 78 years old and is Female; CHEST PAIN TECHNIQUE: Frontal view of the chest. COMPARISON: XR Chest dated March 13 2022 FINDINGS: LUNGS: Unremarkable. No consolidation. PLEURAL SPACE: Unremarkable. No pneumothorax. HEART: Unremarkable. No cardiomegaly. MEDIASTINUM: Unremarkable. Normal mediastinal contour. BONES/JOINTS: Multilevel degenerative change of the spine is present. No acute fracture. VASCULATURE: Atherosclerosis of the aorta is present. UPPER ABDOMEN: Unremarkable as visualized. IMPRESSION: No acute cardiopulmonary process. Electronically signed by: Jennifer Rich MD 05/27/2024 12:17 AM CDT RP Due to temporary technical issues with the PACS/[employer] reporting system, reports are being jonnie d by the in-house radiologist without review as a courtesy to ensure prompt reporting the interpreting radiologist is fully responsible for the content of the report. Transcribed Date/Time: 05/27/2024 5:48 AM
[2024-05-27] MEDS: ZOLPIDEM TARTRATE 10 MG TABLET PO SCH (06:05)
[2024-05-27] MEDS: POTASSIUM 25 MEQ EFFERV TAB PO ONE (06:07)
[2024-05-27] MEDS: PANTOPRAZOLE 40MG TABLET PO SCH (06:08)
[2024-05-27 06:17] VITALS: BMI 32.5
[2024-05-27] MEDS: ENOXAPARIN 40 MG/0.4 ML SQ SCH (08:59)
[2024-05-27] MEDS: VALSARTAN 80 MG TAB PO SCH (08:59)
[2024-05-27] MEDS: EZETIMIBE 10 MG TAB PO SCH (08:59)
[2024-05-27] MEDS: AMLODIPINE 10 MG TAB PO SCH (09:00)
[2024-05-27] MEDS: MAGNESIUM SULFATE 1 gm IVPB 1 GM/100 ML BAG IV ONE (09:00)
[2024-05-27] MEDS: ASPIRIN EC 81 MG TAB PO SCH (09:00)
[2024-05-27] MEDS: METOPROLOL TAR 25 MG TAB PO SCH (09:00)
[2024-05-27] MEDS: POTASSIUM CL SA 10 MEQ TAB PO ONE (12:56)
[2024-05-27 12:59] LABS: Specific Gravity 1.018 (1.005-1.030); Sqamous Epithelial <5 /HPF (None Seen); Transitional Epithelial <5 /HPF (None Seen); Urine Bacteria <20 /HPF (<20); Urine Bilirubin NEGATIVE (Negative); Urine Blood Negative (Negative); Urine Clarity Turbid (Clear); Urine Color Light-Yellow (Yellow); Urine Culture Reflex Order NOT NEEDED; Urine Glucose NEGATIVE (Negative); Urine Ketones NEGATIVE (Negative); Urine Microscopic Reflex YN ORDER UMIC; Urine Mucus Slight /HPF (None Seen); Urine Nitrite NEGATIVE (Negative); Urine Protein NEGATIVE (Negative); Urine RBC <5 /HPF (None Seen); Urine Urobilinogen Normal (Normal); Urine pH 5.5 (5.0-7.0)
--- NOTE | 2024-05-27 13:46 | P.CNS ---
Date of Consult: 05/27/24 Chief Complaint: Afib w RVR History of Present Illness: Patient with PMH of HTN, presented with palpitations, occasional, denies chest pain, no SOB, no SLOAN, no syncope. Allergies Miovxhp-WBH-ZeN Reductase Inhibitor [Wleexvn-Fls-Bcm Reductase Inhibitor] Wei rgy (Unknown, Verified 09/03/22 06:31) Leg Cramps Sulfa (Sulfonamide Antibiotics) Allergy (Unknown, Verified 09/03/22 06:31) low blood pressure adhesive tape Allergy (Verified 09/03/22 06:31) Itching meperidine HCl [From Demerol] Allergy (Verified 09/03/22 06:31) Anaphylaxis Penicillins Allergy (Verified 09/03/22 06:31) Unknown tizanidine HCl [From Zanaflex] Allergy (Verified 09/03/22 06:31) Anaphylaxis lidocaine Adverse Reaction (Severe, Verified 09/03/22 06:31) syncope codeine [Codeine] Adverse Reaction (Verified 09/03/22 06:31) Palpitations Latex, Natural R Allergy (Uncoded 09/03/22 06:31) Unknown Home medications list reviewed: Yes Home Medications: Amlodipine [Norvasc*] 10 mg PO DAILY 08/29/22 Zolpidem Tartrate [Ambien*] 10 mg PO BEDTIME 04/30/23 Citalopram [Celexa] 20 mg PO BEDTIME 05/27/24 Cyclobenzaprine [Flexeril] 10 mg PO TIDP PRN 05/27/24 Donepezil [Aricept] 5 mg PO BEDTIME 05/27/24 Famotidine 20 mg PO BID 05/27/24 Rosuvastatin [Crestor] 5 mg PO BEDTIME 05/27/24 - Past Medical/Surgical History Diabetic: No -: GERD -: HTN -: Hyperlipidemia -: Skin cancer -: DJD -: Insomnia -: Recurrent diverticulitis -: lap beulah -: lap appy -: partial hyst -: foot surgery -: neck surgery -: back surgery -: Bladder suspension Psychosocial/ Personal History: Patient lives at home with her , adequate in-home care. - Family History Mother Medical History: Lung disease, Other (see notes) Notes: emphysema, ALZHEIMERS Father Medical History: Heart disease Notes: congenital Brother Medical History: Other (see notes) Notes: ALZHEIMER'S Sister Medical History: Other (see notes) Notes: ALZHEIMER'S - Social History Smoking Status: Current some day smoker Alcohol use: No CD- Drugs: No Caffeine use: Yes Place of Residence: Home Review of Systems 10-point ROS is otherwise unremarkable Physical Examination Temp Pulse Resp BP Pulse Ox 98.3 F 71 20 106/55 L 98 05/27/24 12:00 05/27/24 12:00 05/27/24 12:00 05/27/24 12:00 05/27/24 12:00 General: Alert, In no apparent distress HEENT: Atraumatic, PERRLA, Mucous membr. moist/pink, EOMI, Sclerae nonicteric Neck: Supple, 2+ carotid pulse no bruit, No LAD, Without JVD or thyroid abnormality Respiratory: Clear to auscultation bilaterally, Normal air movement Cardiovascular: Regular rate/rhythm, Normal S1 S2 Gastrointestinal: Normal bowel sounds, No tenderness Musculoskeletal: No tenderness Integumentary: No rashes Neurological: Normal gait, Normal speech, Normal tone, Normal affect Lymphatics: No axilla or inguinal lymphadenopathy Laboratory Data (last 24 hrs) 05/26/24 05/26/24 05/26/24 23:07 23:07 23:07 WBC 7.00 Hgb 9.4 L Hct 28.9 L Plt Count 281 PT 13.5 H INR 1.19 Sodium 141 Potassium 3.4 L BUN 13 Creatinine 1.05 H Glucose 92 Magnesium 1.7 Total Bilirubin 0.2 AST 12 L ALT 19 Alkaline Phosphatase 84 - Problems (1) Atrial fibrillation Current Visit: Yes Status: Acute Plan: paroxysmal, patient is currently in sinus rhythm continue metoprolol 25 mg po BID start patient on Eliquis 5 mg po BID stop ASA (2) Hypertension Current Visit: No Status: Acute Plan: continue metoprolol, Valsartan stop Norvasc.
[2024-05-27] MEDS: ATORVASTATIN 40 MG TAB PO SCH (20:28)
[2024-05-28] MEDS: DOCUSATE NA 100 MG CAP PO SCH (03:32)
[2024-05-28 06:35] LABS: Absolute Basophils 0.1 K/uL (0-0.5); Absolute Eosinophils 0.3 K/uL (0-0.5); Absolute Monocytes 0.8 K/uL (0.1-1.3); Absolute Neutrophil 3.7 K/uL (1.8-8.0); Basophils % 0.7 % (0-1.3); Eosinophils % 4.4 % (0-4.4); Hematocrit 29.1 % (36.0-45.0); Hemoglobin 9.4 g/dL (12.0-15.0); Lymphocytes % 37.7 % (15.3-44.8); MCH 24.7 pg (27.0-35.0); MCHC 32.4 g/dL (32.0-36.0); MCV 76.3 fL (80-100); MPV 7.7 fL (7.6-11.3); Monocytes % 10.6 % (3.3-12.3); Neutrophils % 46.6 % (41.7-73.7); Platelets 350 thou/uL (152-406); RBC Red Blood Cell Count 3.82 M/uL (3.86-4.86); Red Cell Distribution Width 16.7 % (12.1-15.2)
[2024-05-28 06:48] LABS: Albumin 3.3 g/dL (3.4-5.0); Albumin/Globulin Ratio 0.9 (1.1-1.8); Anion Gap 5.3 mEq/L (5.0-15.0); Bilirubin Total 0.3 mg/dL (0.2-1.0); Globulin 3.5 g/dL (2.3-3.5); Magnesium 2.1 mg/dL (1.6-2.4); Potassium 4.3 mEq/L (3.5-5.1); Protein, Total 6.8 g/dL (6.4-8.2)
[2024-05-28 08:20] VITALS: BP 134/64; TEMP 98
[2024-05-28 08:39] VITALS: O2SAT 95
--- NOTE | 2024-05-31 08:52 | ECHO ---
HEIGHT: 5 ft 2 in WEIGHT: 178 lb 0 oz DATE OF STUDY: 05/27/[address]: Iris Cleaning MD 2-DIMENSIONAL: YES M.MODE: YES DOPPLER: YES COLOR FLOW: YES TDS: PORTABLE: YES DEFINITY: BUBBLE STUDY: DIAGNOSIS: ATRIAL FIBRILLATION WITH RAPID VENTRICULAR RESPONSE CARDIAC HISTORY: CATHERIZATION: YES SURGERY: PROSTHETIC VALVE: PACEMAKER: MEASUREMENTS (cm) DIASTOLIC (NORMALS) SYSTOLIC (NORMALS) IVSd 1.0 (0.6-1.2) LA Diam 3.6 (1.9-4.0) LVEF 60-65% LVIDd 4.6 (3.5-5.7) LVIDs 2.8 (2.0-3.5) %FS 39% LVPWd 1.0 (0.6-1.2) Ao Diam 3.3 (2.0-3.7) 2 DIMENSIONAL ASSESSMENT: RIGHT ATRIUM: NORMAL LEFT ATRIUM: NORMAL RIGHT VENTRICLE: NORMAL LEFT VENTRICLE: NORMAL TRICUSPID VALVE: MILD TRICUSPID REGURGITATION MITRAL VALVE: MILD MITRAL REGURGITATION PULMONIC VALVE: NORMAL AORTIC VALVE: MILD AORTIC INSUFFICIENCY PERICARDIAL EFFUSION: NONE AORTIC ROOT: NORMAL LEFT VENTRICULAR WALL MOTION: NORMAL DOPPLER/COLOR FLOW: SEE BELOW COMMENTS: 1. NORMAL LEFT VENTRICULAR EJECTION FRACTION 60-65% WITH NORMAL WALL MOTION 2. DIASTOLIC DYSFUNCTION 3. MILD MITRAL REGURGITATION, AORTIC INSUFFICIENCY, TRICUSPID REGURGITATION TECHNOLOGIST: SHIRA RAMIREZ
--- NOTE | 2024-05-31 12:15 | EKG ---
Test Date: 2024-05-27 Test Time: 00:30:15 Conveyor Console Operator: HOLLY MEASUREMENT RESULTS: Intervals: Rate: 66 NC: 212 QRSD: 82 QT: 438 QTc: 459 [place]: P: 71 NC: 212 QRS: 5 T: 60 INTERPRETIVE STATEMENTS: Sinus rhythm with 1st degree AV block Inferior infarct, age undetermined Abnormal ECG Compared to ECG 12/03/2023 11:31:03 Myocardial infarct finding now present Electronically Signed On 05-31-24 12:05:40 CDT by Nikolay Mobley
--- NOTE | 2024-06-03 08:53 | EKG ---
Test Date: 2024-05-26 Test Time: 22:44:58 Project Accountant: HOLLY MEASUREMENT RESULTS: Intervals: Rate: 91 [place]: QRSD: 86 QT: 384 QTc: 472 [place]: P: HI: QRS: 41 T: 73 INTERPRETIVE STATEMENTS: Atrial fibrillation Abnormal ECG Compared to ECG 12/03/2023 11:31:03 Sinus rhythm no longer present First degree AV block no longer present Electronically Signed On 06-03-24 08:42:14 CDT by Nikolay Mobley
== END 2024-05-28 12:13 | disposition home or self-care (01) | DRG 309 ==
LOC: ER 22:38 → ERHOLD 05-27 02:17 → 4TH 05-27 04:42
PROVIDERS: ADMIT Family Medicine; ATTEND Hospitalist
DX: I48.0 Paroxysmal atrial fibrillation (principal); I20.0 Unstable angina; I10 Essential (primary) hypertension; E66.9 Obesity, unspecified; K21.9 Gastro-esophageal reflux disease without esophagitis; E78.00 Pure hypercholesterolemia, unspecified; M19.90 Unspecified osteoarthritis, unspecified site; F17.210 Nicotine dependence, cigarettes, uncomplicated; Z88.0 Allergy status to penicillin; Z88.2 Allergy status to sulfonamides; Z88.8 Allergy status to other drugs, medicaments and biological substances; Z88.5 Allergy status to narcotic agent; Z90.49 Acquired absence of other specified parts of digestive tract; Z90.710 Acquired absence of both cervix and uterus; Z79.899 Other long term (current) drug therapy; Z85.828 Personal history of other malignant neoplasm of skin; Z68.32 Body mass index [BMI] 32.0-32.9, adult
CPT/HCPCS: 36415; 71045; 80048; 80053; 80076; 81001; 83735; 83880; 84132; 84484; 85025; 85610; 93005; 93306; 94760; 96372; 99285; J1650; J3475

== ENCOUNTER 2024-06-07 13:17 | Emergency (ER) | payer OTHER ==
--- OUTSIDE RECORDS SUMMARY | 2024-06-07 13:26 | XMS REPORT | Continuity of Care Document ---
Author Name Unknown Address [address] [place] [address] [facility] [address] [place] [address] Care Team Providers [facility] Manager Name Role Phone Cesilia Perez Primary Care Physician [phone] Ashwini Dixon Attending Clinician Unavailable Cesilia PEREZ Attending Clinician Unavailable Elena Espino MD Attending Clinician [phone] ELENA ESPINO Attending Clinician UnavailELENA Hurtado Attending Clinician Unavailholden e [email or web address] Attending Clinician Unavaila BRYNN Gutierrez Attending Clinician Unavailable Brynn Howell Attending Clinician + Unknown, Attending Attending Clinician Unavailab le 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, [place] Attending Clinician U Elena Leone MD Attending Clinician [phone] CHAU SOLANO Attending Clinician Unavailable Chau Swanson Attending Clinician [phone] [facility] Attending Clinician UnavailSILVIA Izaguirre Attending Clinician Unavailable [facility] Attending Clinician Un available Louie Ramon Attending Clinician [phone] [email or web address] Admitting Clinician Unavaila ELENA Benavides Admitting Clinician Unavailabl e Payers Payer Name Policy Type Policy Number Effective Date Expirati on Date Source [id number] 2020 00:00:00 C1 [id number] [facility] MB [id number] [facility] C1 [id number] [facility] [id number] [facility] C1 [id number] [facility] [id number] [facility] C1 [id number] [facility] MEDICARE [facility] [id number] [facility] Problems Condition Name Condition Details Condition Category Status Onset Date Resolution Date Last Treatment Date Treating Clinician Comments Source Left hand pain Left hand pain Disease Active 08-08 00:00: 00 [facility] Osteoporos is Osteoporos is Problem [facility] Asthma Asthma Problem [facility] Vitamin D deficiency Vitamin D deficiency Problem [facility] Allergic rhinitis Allergic rhinitis Problem [facility] COPD - Chronic obstructiv e pulmonary disease COPD (chronic obstructiv e pulmonary disease) Problem [facility] Goiter Goiter Problem [facility] [id number] Primary insomnia Problem [facility] Irritable bowel Irritable bowel Problem [facility] Gastroesop hageal reflux disease Reflux Problem [facility] Kidney stone Kidney stone Problem [facility] Sinus problem Sinus problem Problem [facility] Hyperlipid aemia Hyperlipem ia Problem [facility] High cholestero l High cholestero l Problem [facility] Hypertensi on HTN (hypertens ion) Problem [facility] [id number] Primary osteoarthr itis of right ankle Problem [facility] [id number] Other osteoarthr itis involving multiple joints Problem [facility] [id number] Cigarette nicotine dependence without complicati on Problem [facility] [id number] Anxiety with depression Problem [facility] [id number] Iron deficiency anemia, unspecifie d iron deficiency anemia type Problem [facility] [id number] PUD (peptic ulcer disease) Problem [facility] [id number] Trochanter ic bursitis of right hip Problem [facility] [id number] Right hip pain Problem [facility] Constipati on Constipati on Problem [facility] [id number] Smoking greater than 40 pack years Problem [facility] [id number] Bilateral carotid artery stenosis Problem [facility] [id number] Thyroid nodule incidental ly noted on imaging study Problem [facility] [id number] Atheroscle rosis of both carotid arteries Problem [facility] Cancer Cancer Problem [facility] Diverticul itis Diverticul itis Problem [facility] [id number] Lumbar pain Problem [facility] [id number] Lower urinary tract symptoms (LUTS) Problem [facility] Nodule of adrenal cortex (disorder) Adrenal nodule Problem [facility] [id number] Status post hip surgery Problem [facility] [id number] Pain of right thigh Problem [facility] [id number] Pain, joint, knee, left Problem [facility] [id number] Strain of gluteus medius of right lower extremity, subsequent encounter Problem [facility] [id number] Tear of right gluteus medius tendon, initial encounter Problem [facility] Morbid obesity (disorder) Morbid obesity (disorder) Active Problem 03/15/2017 [facility] Problem Active 2017-03-15 04:23:59 Memoria l Bob White Diverticul ar disease (disorder) Diverticul ar disease (disorder) Active Problem 03/15/2017 [facility] Problem Active 2017-03-15 04:23:59 Medina Lawson Allergies, Adverse Reactions, Alerts Allergy Name Allergy Type Status Severity Reaction(s) Onset Date Inactive Date Treating Clinician Comments Source LATEX DRUG INGREDI Active Swelling 09-27 00:00: 00 [facility] Latex Drug Allergy Active Swelling 09-27 00:00: 00 [facility] MEPERIDI NE DRUG INGREDI Active Anaphylaxis 2019-03 00:00: 00 [facility] PENICILL INS Drug Class Active Diarrhea 2019-03 00:00: 00 [facility] Meperidi ne Drug Allergy Active Anaphylaxis 2019-03 00:00: 00 [facility] Penicill ins Drug Allergy Active Diarrhea 2019-03 00:00: 00 [facility] Sulfa (Sulfona mide Antibiot ics) Propensi ty to adverse reaction s Active Diarrhea 2018-0 11-19 00:00: 00 [facility] SULFA (SULFONA MIDE ANTIBIOT ICS) Drug Class Active Diarrhea 2018-0 11-19 00:00: 00 [facility] TIZANIDI NE HCL DRUG INGREDI Active Anaphylaxis 2018-0 11-19 00:00: 00 [facility] Sulfa (Sulfona mide Antibiot ics) Propensi ty to adverse reaction s Active Diarrhea 2018-0 11-19 00:00: 00 [facility] Tizanidi ne Hcl Propensi ty to adverse reaction s Active Anaphylaxis 2018-0 11-19 00:00: 00 [facility] Meperidi ne Hcl Propensi ty to adverse reaction s Active Anaphylaxis 0 08-08 00:00: 00 [facility] CODEINE DRUG INGREDI Active Palpitations 0 08-08 00:00: 00 [facility] MEPERIDI NE HCL DRUG INGREDI Active Anaphylaxis 08-08 00:00: 00 [facility] codeine codeine Active Medina Lawson tizanidi ne tizanidi ne Active anaphylaxis [facility] tioconaz ole tioconaz ole Active swelling of labia [facility] Codeine Codeine Active rapid heart rate [facility] 5138 Drug allergy Active dizziness [facility] Penicill in Penicill in Active chronic diahrrea [facility] Zanaflex Zanaflex Active Memoria l Renny Demerol HCl Demerol HCl Active [facility] Latex Latex Active Medina Lawson Social History Social Habit Start Date Stop Date Quantity Comments Source Sex Assigned At [facility] of tobacco use Cigarette Smoker [facility] Tobacco use and exposure 2022-08-18 00:00:00 2022-08-18 00:00:00 Smokeless tobacco non-user [facility] Alcoholic beverage intake 2022-08-18 00:00:00 2022-08-18 00:00:00 0 /d [facility] Alcohol intake 2022-08-18 00:00:00 2022-08-18 00:00:00 0 /d [facility] History of Social function 2019-06-10 00:00:00 2019-06-10 00:00:00 [facility] Smoking Status Start Date Stop Date Source Former Smoker 2021-12-21 00:00:00 2021-12-21 00:00:00 [facility] Never Smoker [facility] Social History 2017-03-12 22:12:03 Karishma Mei Medications Ordered Medication Name Filled Medication Name Start Date Stop Date Current Medication? Ordering Clinician Indication Dosage Frequency Signature (SIG) Comments Components Source triamcinolo ne acetonide (KENALOG) injection 40 mg 2023-03 0-02 21:00: 00 12-10 08:59 :00 No 40mg [facility] cephALEXin (KEFLEX) 500 mg capsule 08-18 00:00: 00 08-29 04:59 :00 No [id number] 500mg Take 1 capsule by mouth 4 (four) times daily for 10 days. [facility] Ambien 10 MG Ambien 10 MG 2023-0 3-21 00:00: 00 No QD Ambien 10 MG Ambien 10 MG Ambien 10 MG 2023-0 3-21 00:00: 00 No QD Ambien 10 MG Ambien 10 MG Ambien 10 MG 2023-0 3-21 00:00: 00 No QD Ambien 10 MG Ambien 10 MG Ambien 10 MG 2023-0 3-21 00:00: 00 No QD Ambien 10 MG Ambien 10 MG Ambien 10 MG 2023-0 3-21 00:00: 00 No QD Ambien 10 MG Ambien 10 MG Ambien 10 MG 2023-0 3-21 00:00: 00 No QD Ambien 10 MG Ambien 10 MG Ambien 10 MG 2023-0 3-21 00:00: 00 No QD Ambien 10 MG Ambien 10 MG Ambien 10 MG 2023-0 3-21 00:00: 00 No QD Ambien 10 MG Ambien 10 MG Ambien 10 MG 2023-0 3-21 00:00: 00 No QD Ambien 10 MG Ambien 10 MG Ambien 10 MG 2023-0 3-21 00:00: 00 No QD Ambien 10 MG Ambien 10 MG Ambien 10 MG 2023-0 3-21 00:00: 00 No QD Ambien 10 MG Ambien 10 MG Ambien 10 MG 2023-0 3-21 00:00: 00 No QD Ambien 10 MG Ambien 10 MG Ambien 10 MG 2023-0 3-21 00:00: 00 No QD Ambien 10 MG Ambien 10 MG Ambien 10 MG 2023-0 3-21 00:00: 00 No QD Ambien 10 MG Ambien 10 MG Ambien 10 MG 2023-0 3-21 00:00: 00 No QD Ambien 10 MG Ambien 10 MG Ambien 10 MG 2023-0 3-21 00:00: 00 No QD Ambien 10 MG Ambien 10 MG Ambien 10 MG 2023-0 3-21 00:00: 00 No QD Ambien 10 MG Ambien 10 MG Ambien 10 MG 2023-0 3-21 00:00: 00 No QD Ambien 10 MG Ambien 10 MG Ambien 10 MG 2023-0 3-21 00:00: 00 No QD Ambien 10 MG Bupivicaine [place] Bupivicaine [place] 2023-0 2-27 00:00: 00 No 5mL [facility] Kenalog (Triamcinol one) Kenalog (Triamcinol one) 0 05-06 00:00: 00 No 2mL [facility] Bupivicaine [place] Bupivicaine [place] 0 05-06 00:00: 00 No 5mL [facility] Kenalog (Triamcinol one) Kenalog (Triamcinol one) 0 05-06 00:00: 00 No 2mL [facility] Bupivicaine [place] Bupivicaine [place] 0 05-06 00:00: 00 No 5mL [facility] Kenalog (Triamcinol one) Kenalog (Triamcinol one) 0 05-06 00:00: 00 No 2mL [facility] Bupivicaine [place] Bupivicaine [place] 0 05-06 00:00: 00 No 5mL [facility] Kenalog (Triamcinol one) Kenalog (Triamcinol one) 0 05-06 00:00: 00 No 2mL [facility] Bupivicaine [place] Bupivicaine [place] 0 05-06 00:00: 00 No 5mL [facility] Kenalog (Triamcinol one) Kenalog (Triamcinol one) 0 05-06 00:00: 00 No 2mL [facility] Bupivicaine [place] Bupivicaine [place] 0 05-06 00:00: 00 No 5mL [facility] Kenalog (Triamcinol one) Kenalog (Triamcinol one) 0 05-06 00:00: 00 No 2mL [facility] Bupivicaine [place] Bupivicaine [place] 0 05-06 00:00: 00 No 5mL [facility] Kenalog (Triamcinol one) Kenalog (Triamcinol one) 0 05-06 00:00: 00 No 2mL [facility] Bupivicaine [place] Bupivicaine [place] 0 05-06 00:00: 00 No 5mL [facility] Kenalog (Triamcinol one) Kenalog (Triamcinol one) 0 05-06 00:00: 00 No 2mL [facility] Bupivicaine [place] Bupivicaine [place] 0 05-06 00:00: 00 No 5mL [facility] Kenalog (Triamcinol one) Kenalog (Triamcinol one) 0 05-06 00:00: 00 No 2mL [facility] Bupivicaine [place] Bupivicaine [place] 0 05-06 00:00: 00 No 5mL [facility] Kenalog (Triamcinol one) Kenalog (Triamcinol one) 0 05-06 00:00: 00 No 2mL [facility] Bupivicaine [place] Bupivicaine [place] 0 05-06 00:00: 00 No 5mL [facility] Kenalog (Triamcinol one) Kenalog (Triamcinol one) 0 05-06 00:00: 00 No 2mL [facility] Bupivicaine [place] Bupivicaine [place] 0 05-06 00:00: 00 No 5mL [facility] Kenalog (Triamcinol one) Kenalog (Triamcinol one) 0 05-06 00:00: 00 No 2mL [facility] Bupivicaine [place] Bupivicaine [place] 0 05-06 00:00: 00 No 5mL [facility] Kenalog (Triamcinol one) Kenalog (Triamcinol one) 0 05-06 00:00: 00 No 2mL [facility] Bupivicaine [place] Bupivicaine [place] 0 05-06 00:00: 00 No 5mL [facility] Kenalog (Triamcinol one) Kenalog (Triamcinol one) 0 - 00:00: 00 No 2mL [facility] Bupivicaine [place] Bupivicaine [place]den 0 05-06 00:00: 00 No 5mL [facility] Kenalog (Triamcinol one) Kenalog (Triamcinol one) 0 2 00:00: 00 No 2mL [facility] Bupivicaine [place] Bupivicaine [place]den 0 05-06 00:00: 00 No 5mL [facility] Kenalog (Triamcinol one) Kenalog (Triamcinol one) 0 05-06 00:00: 00 No 2mL [facility] Bupivicaine [place] Bupivicaine [place] 0 05-06 00:00: 00 No 5mL [facility] Kenalog (Triamcinol one) Kenalog (Triamcinol one) 0 05-06 00:00: 00 No 2mL [facility] Bupivicaine [place] Bupivicaine [place] 0 05-06 00:00: 00 No 5mL [facility] Kenalog (Triamcinol one) Kenalog (Triamcinol one) 0 05-06 00:00: 00 No 2mL [facility] Bupivicaine [place] Bupivicaine [place]den 0 05-06 00:00: 00 No 5mL [facility] Kenalog (Triamcinol one) Kenalog (Triamcinol one) 0 05-06 00:00: 00 No 2mL [facility] Ambien 10 MG Ambien 10 MG 0 - 00:00: 00 No Ambien 10 MG Ambien 10 MG Ambien 10 MG 0 09-28 00:00: 00 No Ambien 10 MG Fluconazole 150 MG Fluconazole 150 MG 09-26 00:00: 00 09-27 00:00 :00 No 1{table t} Fluconazol e 150 MG Atorvastati n Calcium 40 MG Atorvastati n Calcium 40 MG 2021-0 6-30 00:00: 00 No 1{table t} QD Atorvastat in Calcium 40 MG Atorvastati n Calcium 40 MG Atorvastati n Calcium 40 MG 2-0 6-30 00:00: 00 No 1{table t} QD Atorvastat in Calcium 40 MG Atorvastati n Calcium 40 MG Atorvastati n Calcium 40 MG 2-0 6-30 00:00: 00 No 1{table t} QD Atorvastat in Calcium 40 MG Atorvastati n Calcium 40 MG Atorvastati n Calcium 40 MG 2-0 630 00:00: 00 No 1{table t} QD Atorvastat in Calcium 40 MG Atorvastati n Calcium 40 MG Atorvastati n Calcium 40 MG 2-0 6-30 00:00: 00 No 1{table t} QD Atorvastat in Calcium 40 MG Atorvastati n Calcium 40 MG Atorvastati n Calcium 40 MG 2-0 630 00:00: 00 No 1{table t} QD Atorvastat in Calcium 40 MG Atorvastati n Calcium 40 MG Atorvastati n Calcium 40 MG 2-0 630 00:00: 00 No 1{table t} QD Atorvastat in Calcium 40 MG Atorvastati n Calcium 40 MG Atorvastati n Calcium 40 MG 2-0 630 00:00: 00 No 1{table t} QD Atorvastat in Calcium 40 MG Atorvastati n Calcium 40 MG Atorvastati n Calcium 40 MG 2-0 630 00:00: 00 No 1{table t} QD Atorvastat in Calcium 40 MG Atorvastati n Calcium 40 MG Atorvastati n Calcium 40 MG 2-0 6-30 00:00: 00 No 1{table t} QD Atorvastat in Calcium 40 MG Atorvastati n Calcium 40 MG Atorvastati n Calcium 40 MG 2-0 6-30 00:00: 00 No 1{table t} QD Atorvastat in Calcium 40 MG Atorvastati n Calcium 40 MG Atorvastati n Calcium 40 MG 2-0 6-30 00:00: 00 No 1{table t} QD Atorvastat in Calcium 40 MG Atorvastati n Calcium 40 MG Atorvastati n Calcium 40 MG 2-0 6-30 00:00: 00 No 1{table t} QD Atorvastat in Calcium 40 MG Atorvastati n Calcium 40 MG Atorvastati n Calcium 40 MG 2-0 6-30 00:00: 00 No 1{table t} QD Atorvastat in Calcium 40 MG Atorvastati n Calcium 40 MG Atorvastati n Calcium 40 MG 2-0 6-30 00:00: 00 No 1{table t} QD Atorvastat in Calcium 40 MG Atorvastati n Calcium 40 MG Atorvastati n Calcium 40 MG 2-0 6-30 00:00: 00 No 1{table t} QD Atorvastat in Calcium 40 MG Atorvastati n Calcium 40 MG Atorvastati n Calcium 40 MG 2-0 630 00:00: 00 No 1{table t} QD Atorvastat in Calcium 40 MG Atorvastati n Calcium 40 MG Atorvastati n Calcium 40 MG 2-0 630 00:00: 00 No 1{table t} QD Atorvastat in Calcium 40 MG Atorvastati n Calcium 40 MG Atorvastati n Calcium 40 MG 2-0 630 00:00: 00 No 1{table t} QD Atorvastat in Calcium 40 MG Atorvastati n Calcium 40 MG Atorvastati n Calcium 40 MG 2-0 630 00:00: 00 No 1{table t} QD Atorvastat in Calcium 40 MG Atorvastati n Calcium 40 MG Atorvastati n Calcium 40 MG 2-0 6-30 00:00: 00 No 1{table t} QD Atorvastat in Calcium 40 MG Atorvastati n Calcium 40 MG Atorvastati n Calcium 40 MG 2-0 6-30 00:00: 00 No 1{table t} QD Atorvastat in Calcium 40 MG Atorvastati n Calcium 40 MG Atorvastati n Calcium 40 MG 2-0 6-30 00:00: 00 No 1{table t} QD Atorvastat in Calcium 40 MG Atorvastati n Calcium 40 MG Atorvastati n Calcium 40 MG 2-0 6-30 00:00: 00 No 1{table t} QD Atorvastat in Calcium 40 MG Atorvastati n Calcium 40 MG Atorvastati n Calcium 40 MG 2-0 6-30 00:00: 00 No 1{table t} QD Atorvastat in Calcium 40 MG Atorvastati n Calcium 40 MG Atorvastati n Calcium 40 MG 2-0 6-30 00:00: 00 No 1{table t} QD Atorvastat in Calcium 40 MG Atorvastati n Calcium 40 MG Atorvastati n Calcium 40 MG 2-0 6-30 00:00: 00 No 1{table t} QD Atorvastat in Calcium 40 MG Atorvastati n Calcium 40 MG Atorvastati n Calcium 40 MG 2-0 6-30 00:00: 00 No 1{table t} QD Atorvastat in Calcium 40 MG Ambien 10 MG Ambien 10 MG 2-0 6-26 00:00: 00 No Ambien 10 MG Ambien 10 MG Ambien 10 MG 2-0 5-23 00:00: 00 No Ambien 10 MG Ambien 10 MG Ambien 10 MG 2-0 5-23 00:00: 00 No Ambien 10 MG Ambien 10 MG Ambien 10 MG 2-0 4-22 00:00: 00 No Ambien 10 MG Lidocaine Lidocaine 2021-0 4-21 00:00: 00 No 10mg [facility] Kenalog (Triamcinol one) Kenalog (Triamcinol one) 2-0 4-21 00:00: 00 No 40mg [facility] Lidocaine Lidocaine 2-0 4-21 00:00: 00 No 10mg [facility] Kenalog (Triamcinol one) Kenalog (Triamcinol one) 2021-0 4-21 00:00: 00 No 40mg [facility] Lidocaine Lidocaine 2-0 4-21 00:00: 00 No 10mg [facility] Kenalog (Triamcinol one) Kenalog (Triamcinol one) 0 - 00:00: 00 No 40mg [facility] Lidocaine Lidocaine 0 - 00:00: 00 No 10mg [facility] Kenalog (Triamcinol one) Kenalog (Triamcinol one) 0 - 00:00: 00 No 40mg [facility] Lidocaine Lidocaine 0 - 00:00: 00 No 10mg [facility] Kenalog (Triamcinol one) Kenalog (Triamcinol one) 0 - 00:00: 00 No 40mg [facility] Lidocaine Lidocaine 0 06-28 00:00: 00 No 10mg [facility] Kenalog (Triamcinol one) Kenalog (Triamcinol one) 0 - 00:00: 00 No 40mg [facility] Lidocaine Lidocaine 0 06-28 00:00: 00 No 10mg [facility] Kenalog (Triamcinol one) Kenalog (Triamcinol one) 0 06-28 00:00: 00 No 40mg [facility] Lidocaine Lidocaine 0 06-28 00:00: 00 No 10mg [facility] Kenalog (Triamcinol one) Kenalog (Triamcinol one) 0 - 00:00: 00 No 40mg [facility] Lidocaine Lidocaine 0 06-28 00:00: 00 No 10mg [facility] Kenalog (Triamcinol one) Kenalog (Triamcinol one) 0 - 00:00: 00 No 40mg [facility] Lidocaine Lidocaine 0 06-28 00:00: 00 No 10mg [facility] Kenalog (Triamcinol one) Kenalog (Triamcinol one) 0 - 00:00: 00 No 40mg [facility] Lidocaine Lidocaine 2-0 4-21 00:00: 00 No 10mg [facility] Kenalog (Triamcinol one) Kenalog (Triamcinol one) 2021-0 4-21 00:00: 00 No 40mg [facility] Lidocaine Lidocaine 2021-0 4-21 00:00: 00 No 10mg [facility] Kenalog (Triamcinol one) Kenalog (Triamcinol one) 2021-0 4-21 00:00: 00 No 40mg [facility] Lidocaine Lidocaine 2021-0 4-21 00:00: 00 No 10mg [facility] Kenalog (Triamcinol one) Kenalog (Triamcinol one) 2021-0 4-21 00:00: 00 No 40mg [facility] Lidocaine Lidocaine 2021-0 4-21 00:00: 00 No 10mg [facility] Kenalog (Triamcinol one) Kenalog (Triamcinol one) 2021-0 4-21 00:00: 00 No 40mg [facility] Lidocaine Lidocaine 2021-0 4-21 00:00: 00 No 10mg [facility] Kenalog (Triamcinol one) Kenalog (Triamcinol one) 2021-0 4-21 00:00: 00 No 40mg [facility] Lidocaine Lidocaine 2021-0 4-21 00:00: 00 No 10mg [facility] Kenalog (Triamcinol one) Kenalog (Triamcinol one) 2021-0 4-21 00:00: 00 No 40mg [facility] Lidocaine Lidocaine 2021-0 4-21 00:00: 00 No 10mg [facility] Kenalog (Triamcinol one) Kenalog (Triamcinol one) 2021-0 4-21 00:00: 00 No 40mg [facility] Lidocaine Lidocaine 2021-0 4-21 00:00: 00 No 10mg [facility] Kenalog (Triamcinol one) Kenalog (Triamcinol one) 0 4-21 00:00: 00 No 40mg [facility] Lidocaine Lidocaine 0 4-21 00:00: 00 No 10mg [facility] Kenalog (Triamcinol one) Kenalog (Triamcinol one) 0 4-21 00:00: 00 No 40mg [facility] Lidocaine Lidocaine 0 4- 00:00: 00 No 10mg [facility] Kenalog (Triamcinol one) Kenalog (Triamcinol one) 0 4- 00:00: 00 No 40mg [facility] Lidocaine Lidocaine 0 4- 00:00: 00 No 10mg [facility] Kenalog (Triamcinol one) Kenalog (Triamcinol one) 0 4-21 00:00: 00 No 40mg [facility] Lidocaine Lidocaine 2021-0 4- 00:00: 00 No 10mg [facility] Kenalog (Triamcinol one) Kenalog (Triamcinol one) 0 4-21 00:00: 00 No 40mg [facility] Lidocaine Lidocaine 0 4-21 00:00: 00 No 10mg [facility] Kenalog (Triamcinol one) Kenalog (Triamcinol one) 0 4-21 00:00: 00 No 40mg [facility] Lidocaine Lidocaine 2021-0 4-21 00:00: 00 No 10mg [facility] Kenalog (Triamcinol one) Kenalog (Triamcinol one) 0 4-21 00:00: 00 No 40mg [facility] Lidocaine Lidocaine 2021-0 4-21 00:00: 00 No 10mg [facility] [facility] Kenalog (Triamcinol one) Kenalog (Triamcinol one) 0 4-21 00:00: 00 No 40mg [facility] Lidocaine Lidocaine 0 4-21 00:00: 00 No 10mg [facility] Kenalog (Triamcinol one) Kenalog (Triamcinol one) 0 4-21 00:00: 00 No 40mg [facility] Lidocaine Lidocaine 0 4-21 00:00: 00 No 10mg [facility] Kenalog (Triamcinol one) Kenalog (Triamcinol one) 0 4-21 00:00: 00 No 40mg [facility] Lidocaine Lidocaine 0 4- 00:00: 00 No 10mg [facility] Kenalog (Triamcinol one) Kenalog (Triamcinol one) 0 4-21 00:00: 00 No 40mg [facility] Lidocaine Lidocaine 0 4- 00:00: 00 No 10mg [facility] Kenalog (Triamcinol one) Kenalog (Triamcinol one) 0 4-21 00:00: 00 No 40mg [facility] Lidocaine Lidocaine 0 4-21 00:00: 00 No 10mg [facility] Kenalog (Triamcinol one) Kenalog (Triamcinol one) 0 4-21 00:00: 00 No 40mg [facility] Zolpidem Tartrate 10 MG Zolpidem Tartrate 10 MG 2021-0 3-28 00:00: 00 No Zolpidem Tartrate 10 MG Ambien 10 Ambien 10 2021-0 3-28 00:00: 00 No 1{table t_at_be dtime_a s_neede d} QD Ambien 10 Zolpidem Tartrate 10 MG Zolpidem Tartrate 10 MG 2021-0 3-28 00:00: 00 No Zolpidem Tartrate 10 MG Zolpidem Tartrate 10 MG Zolpidem Tartrate 10 MG 2022-0 3-28 00:00: 00 No Zolpidem Tartrate 10 MG Nystatin 620987 UNIT/ML Nystatin [id number] UNIT/ML 0 2-22 00:00: 00 05-11 00:00 :00 No QID Nystatin [id number] UNIT/ML Zolpidem Tartrate 10 MG Zolpidem Tartrate 10 MG 0 2-21 00:00: 00 No Zolpidem Tartrate 10 MG Ambien 10 MG Ambien 10 MG 2020-03 1-24 00:00: 00 No Ambien 10 MG Zolpidem Tartrate 10 MG Zolpidem Tartrate 10 MG 2020-03 0-20 00:00: 00 No Zolpidem Tartrate 10 MG Zolpidem Tartrate 10 MG Zolpidem Tartrate 10 MG 2020-03 0-20 00:00: 00 No Zolpidem Tartrate 10 MG Procto-Med HC 2.5 % Procto-Med HC 2.5 % - 00:00: 00 12-24 00:00 :00 No 1{appli cation} Procto-Med HC 2.5 % Omeprazole 20 MG Omeprazole 20 MG 1-06 00:00: 00 No 1{capsu le} QD Omeprazole 20 MG Omeprazole 20 MG Omeprazole 20 MG -06 00:00: 00 No 1{capsu le} QD Omeprazole 20 MG Omeprazole 20 MG Omeprazole 20 MG 1-06 00:00: 00 No 1{capsu le} QD Omeprazole 20 MG Omeprazole 20 MG Omeprazole 20 MG 1-06 00:00: 00 No 1{capsu le} QD Omeprazole 20 MG Omeprazole 20 MG Omeprazole 20 MG 1-06 00:00: 00 No 1{capsu le} QD Omeprazole 20 MG Omeprazole 20 MG Omeprazole 20 MG 1-06 00:00: 00 No 1{capsu le} QD Omeprazole 20 MG Omeprazole 20 MG Omeprazole 20 MG 1-06 00:00: 00 No 1{capsu le} QD Omeprazole 20 MG PredniSONE PredniSONE 9-08 00:00: 11-25 00:00 :00 No Na Perez 2 tablet daily x 5 days then one tablet daily x 5 days [facility] Ipratropium [place] Ipratropium [place] 10-28 00:00: 00 04-25 00:00 :00 No Na Perez 2 sprays in each nostril [facility] Baclofen Baclofen 8 00:00: 00 01-08 00:00 :00 No Na Perez 1/2 tablet with food or milk [facility] Atorvastati n Calcium Atorvastati n Calcium 08-16 00:00: 00 Yes Na Perez 1 tablet [facility] Atorvastati n Calcium 20 MG Atorvastati n Calcium 20 MG 08-16 00:00: 00 No 1{table t} QD Atorvastat in Calcium 20 MG zolpidem 10 mg tablet 04-19 00:00: 00 Yes TK 1 T PO QHS PRN [facility] methylPREDN ISolone (MEDROL, FADI,) 4 mg tablets 03-30 00:00: 00 Yes [id number] 84mg Take 21 tablets by mouth SEE-INSTRU CTIONS. follow package directions [facility] triamcinolo ne acetonide (KENALOG) injection 40 mg 03-23 20:30: 00 03-23 19:30 :00 No 40mg [facility] Amlodipine- Olmesartan 10-20 mg Tab 2018-0324 00:00: 00 Yes TK 1 T PO D [facility] dexamethaso ne (DECADRON) injection 10 mg 11-20 03:15: 00 11-20 02:16 :00 No 10mg 10 mg, Oral, ONCE, 1 dose, Maribel 11/19/18 at 2215, Routine [facility] HYDROcodone -acetaminop hen (NORCO) 10-325 mg tablet 1 tablet 11-20 03:15: 00 11-20 02:04 :00 No 1{tbl} 1 tablet, Oral, ONCE NOW, 1 dose, [facility] 11/19/18 at 2215, Routine [facility] naproxen 250 mg tablet 11-19 00:00: 00 Yes [id number] 250mg Take 1 tablet by mouth 2 (two) times daily with meals. [facility] pentazocine -naloxone 50-0.5 mg tablet 11-19 00:00: 00 Yes [id number] 1{tbl} Take 1 tablet by mouth every 6 (six) hours as needed for Pain. [facility] cyclobenzap rine 5 mg tablet 11-19 00:00: 00 Yes [id number] 5mg Take 1 tablet by mouth at bedtime. [facility] acetaminoph en (TYLENOL) 325 mg tablet 11-19 00:00: 00 11-25 04:59 :00 No [id number] 650mg Take 2 tablets by mouth 4 (four) times daily for 5 days. This is the maximum safe dose for a healthy adult. [facility] spironolact one 25 mg oral tablet 03-12 22:12: 00 Yes 25 mg = 1 tab, PO, BID, 0 Refill(s) Memoria kiana Lawson cyclobenzap rine 10 mg oral tablet 03-12 22:12: 00 Yes 10 mg = 1 tab, PO, TID, 0 Refill(s) Memkiki Lawson Klor-Con 10 03-12 22:12: 00 Yes 10 mEq, PO, BID, 0 Refill(s) Memkiki Lawson Furosemide 40 MG Oral Tablet 03-12 22:12: 00 Yes 40 mg = 1 tab, PO, Daily, 0 Refill(s) Memkiki Lawson gabapentin 100 MG Oral Capsule 03-12 22:12: 00 Yes 300 mg = 3 cap, PO, TID, 0 Refill(s) Memkiki Lawson Acetaminoph en 325 MG / Hydrocodone Bitartrate 5 MG Oral Tablet [[place] 5/325] 03-12 22:12: 00 Yes 1 tab, PO, Q6H, 0 Refill(s) Memkiki Lawson Omeprazole 03-12 22:12: 00 Yes PO, Daily, 0 Refill(s) Medina Lawson Citalopram 40 MG Oral Tablet [Celexa] 03-12 22:12: 00 Yes 40 mg = 1 tab, PO, Daily, 0 Refill(s) Medina Lawson OMEPRAZOLE MAGNESIUM (PRILOSEC OTC ORAL) 08-08 19:24: 51 Yes Take by mouth. [facility] selexipag (UPTRAVI) 1,000 mcg Tab 08-08 19:24: 51 Yes Take by mouth. [facility] CITALOPRAM HYDROBROMID E (CELEXA ORAL) 08-08 19:24: 51 Yes Take by mouth. [facility] CARVEDILOL ORAL 08-08 19:24: 51 Yes Take by mouth. [facility] OMEPRAZOLE MAGNESIUM (PRILOSEC OTC ORAL) 08-08 14:24: 51 Yes Take by mouth. [facility] selexipag (UPTRAVI) 1,000 mcg Tab 08-08 14:24: 51 Yes Take by mouth. [facility] losartan (COZAAR) 50 mg tablet 05-27 00:00: 00 Yes [facility] Atorvastati n Calcium 20 MG Atorvastati n Calcium 20 MG No 1{table t} QD Atorvastat in Calcium 20 MG amLODIPine- Olmesartan 5-20 MG amLODIPine- Olmesartan 5-20 MG No amLODIPine -Olmesarta n 5-20 MG Citalopram Hydrobromid e 20 MG Citalopram Hydrobromid e 20 MG No Citalopram Hydrobromi de 20 MG Lyrica 100 MG Lyrica 100 MG No 1{capsu le} BID Lyrica 100 MG Meloxicam 7.5 MG Meloxicam 7.5 MG No 1{table t} QD Meloxicam 7.5 MG Omeprazole 40 MG Omeprazole 40 MG No QD Omeprazole 40 MG Omeprazole 40 MG Omeprazole 40 MG No QD Omeprazole 40 MG Valsartan Valsartan No Valsartan Lyrica 100 MG Lyrica 100 MG No 1{capsu le} BID Lyrica 100 MG Meloxicam 7.5 MG Meloxicam 7.5 MG No 1{table t} QD Meloxicam 7.5 MG Citalopram Hydrobromid e 20 MG Citalopram Hydrobromid e 20 MG No Citalopram Hydrobromi de 20 MG amLODIPine- Olmesartan 5-20 MG amLODIPine- Olmesartan 5-20 MG No amLODIPine -Olmesarta n 5-20 MG Atorvastati n Calcium 20 MG Atorvastati n Calcium 20 MG No 1{table t} QD Atorvastat in Calcium 20 MG Omeprazole 40 MG Omeprazole 40 MG No QD Omeprazole 40 MG Lyrica 100 MG Lyrica 100 MG No 1{capsu le} BID Lyrica 100 MG Meloxicam 7.5 MG Meloxicam 7.5 MG No 1{table t} QD Meloxicam 7.5 MG Citalopram Hydrobromid e 20 MG Citalopram Hydrobromid e 20 MG No Citalopram Hydrobromi de 20 MG Celexa Celexa Yes Na Perez 1 tablet [facility] Baclofen Baclofen Yes Na Perez as directed [facility] Prilosec Prilosec Yes Na Perez 1 caps ule 30 minutes before morning meal [facility] Ambien Ambien Yes Na Perez TAKE 1 TABLET BY MOUTH EVERY DAY AT BEDTIME NEEDED [facility] Amlodipine- Olmesartan Amlodipine- Olmesartan Yes Na Perez 1 tablet [facility] amLODIPine- Olmesartan 5-20 MG amLODIPine- Olmesartan 5-20 MG No amLODIPine -Olmesarta n 5-20 MG Iron Iron No Iron Atorvastati n Calcium 20 MG Atorvastati n Calcium 20 MG No 1{table t} QD Atorvastat in Calcium 20 MG Omeprazole 40 MG Omeprazole 40 MG No QD Omeprazole 40 MG Valsartan Valsartan No Valsartan Lyrica 100 MG Lyrica 100 MG No 1{capsu le} BID Lyrica 100 MG Meloxicam 7.5 MG Meloxicam 7.5 MG No 1{table t} QD Meloxicam 7.5 MG Citalopram Hydrobromid e 20 MG Citalopram Hydrobromid e 20 MG No Citalopram Hydrobromi de 20 MG amLODIPine- Olmesartan 5-20 MG amLODIPine- Olmesartan 5-20 MG No amLODIPine -Olmesarta n 5-20 MG Atorvastati n Calcium 20 MG Atorvastati n Calcium 20 MG No 1{table t} QD Atorvastat in Calcium 20 MG Omeprazole 40 MG Omeprazole 40 MG No QD Omeprazole 40 MG Valsartan Valsartan No Valsartan Lyrica 100 MG Lyrica 100 MG No 1{capsu le} BID Lyrica 100 MG Meloxicam 7.5 MG Meloxicam 7.5 MG No 1{table t} QD Meloxicam 7.5 MG Citalopram Hydrobromid e 20 MG Citalopram Hydrobromid e 20 MG No Citalopram Hydrobromi de 20 MG amLODIPine- Olmesartan 5-20 MG amLODIPine- Olmesartan 5-20 MG No amLODIPine -Olmesarta n 5-20 MG Atorvastati n Calcium 20 MG Atorvastati n Calcium 20 MG No 1{table t} QD Atorvastat in Calcium 20 MG Omeprazole 40 MG Omeprazole 40 MG No QD Omeprazole 40 MG Valsartan Valsartan No Valsartan Lyrica 100 MG Lyrica 100 MG No 1{capsu le} BID Lyrica 100 MG Meloxicam 7.5 MG Meloxicam 7.5 MG No 1{table t} QD Meloxicam 7.5 MG Citalopram Hydrobromid e 20 MG Citalopram Hydrobromid e 20 MG No Citalopram Hydrobromi de 20 MG amLODIPine- Olmesartan 5-20 MG amLODIPine- Olmesartan 5-20 MG No amLODIPine -Olmesarta n 5-20 MG Atorvastati n Calcium 20 MG Atorvastati n Calcium 20 MG No 1{table t} QD Atorvastat in Calcium 20 MG Omeprazole 40 MG Omeprazole 40 MG No QD Omeprazole 40 MG Valsartan Valsartan No Valsartan Lyrica 100 MG Lyrica 100 MG No 1{capsu le} BID Lyrica 100 MG Meloxicam 7.5 MG Meloxicam 7.5 MG No 1{table t} QD Meloxicam 7.5 MG Citalopram Hydrobromid e 20 MG Citalopram Hydrobromid e 20 MG No Citalopram Hydrobromi de 20 MG amLODIPine- Olmesartan 5-20 MG amLODIPine- Olmesartan 5-20 MG No amLODIPine -Olmesarta n 5-20 MG Atorvastati n Calcium 20 MG Atorvastati n Calcium 20 MG No 1{table t} QD Atorvastat in Calcium 20 MG Omeprazole 40 MG Omeprazole 40 MG No QD Omeprazole 40 MG Valsartan Valsartan No Valsartan Lyrica 100 MG Lyrica 100 MG No 1{capsu le} BID Lyrica 100 MG Meloxicam 7.5 MG Meloxicam 7.5 MG No 1{table t} QD Meloxicam 7.5 MG Citalopram Hydrobromid e 20 MG Citalopram Hydrobromid e 20 MG No Citalopram Hydrobromi de 20 MG amLODIPine- Olmesartan 5-20 MG amLODIPine- Olmesartan 5-20 MG No amLODIPine -Olmesarta n 5-20 MG Atorvastati n Calcium 20 MG Atorvastati n Calcium 20 MG No 1{table t} QD Atorvastat in Calcium 20 MG amLODIPine- Olmesartan 5-20 MG amLODIPine- Olmesartan 5-20 MG No amLODIPine -Olmesarta n 5-20 MG Gabapentin Gabapentin No Gabapentin Ambien 10 Ambien 10 No 1{ta ble t_at_be dtime_a s_neede d} QD Ambien 10 Ambien 10 MG Ambien 10 MG No 1{table t_at_be dtime_a s_neede d} QD Ambien 10 MG Baclofen 10 MG Baclofen 10 MG No Baclofen 10 MG CeleXA 20 MG CeleXA 20 MG No 1{table t} QD CeleXA 20 MG amLODIPine- Olmesartan 5-20 MG amLODIPine- Olmesartan 5-20 MG No amLODIPine -Olmesarta n 5-20 MG Baclofen 0.05 MG/ML Baclofen 0.05 MG/ML No Baclofen 0.05 MG/ML amLODIPine- Olmesartan 5-20 MG amLODIPine- Olmesartan 5-20 MG No amLODIPine -Olmesarta n 5-20 MG Baclofen 10 MG Baclofen 10 MG No Baclofen 10 MG Ambien 10 Ambien 10 No 1{ta ble t_at_be dtime_a s_neede d} QD Ambien 10 CeleXA 20 MG CeleXA 20 MG No 1{table t} QD CeleXA 20 MG Baclofen 0.05 MG/ML Baclofen 0.05 MG/ML No Baclofen 0.05 MG/ML Atorvastati n Calcium 20 MG Atorvastati n Calcium 20 MG No 1{table t} QD Atorvastat in Calcium 20 MG Citalopram Hydrobromid e 20 MG Citalopram Hydrobromid e 20 MG No Citalopram Hydrobromi de 20 MG Gabapentin 300 MG Gabapentin 300 MG No 1{capsu le} QD Gabapentin 300 MG Gabapentin 300 MG Gabapentin 300 MG No 1{capsu le} QD Gabapentin 300 MG amLODIPine- Olmesartan 5-20 MG amLODIPine- Olmesartan 5-20 MG No amLODIPine -Olmesarta n 5-20 MG Baclofen 0.05 MG/ML Baclofen 0.05 MG/ML No Baclofen 0.05 MG/ML Ambien 10 MG Ambien 10 MG No Ambien 10 MG Citalopram Hydrobromid e 20 MG Citalopram Hydrobromid e 20 MG No Citalopram Hydrobromi de 20 MG PriLOSEC 40 MG PriLOSEC 40 MG No QD PriLOSEC 40 MG Baclofen 10 MG Baclofen 10 MG No Baclofen 10 MG Atorvastati n Calcium 20 MG Atorvastati n Calcium 20 MG No 1{table t} QD Atorvastat in Calcium 20 MG amLODIPine- Olmesartan 5-20 MG amLODIPine- Olmesartan 5-20 MG No amLODIPine -Olmesarta n 5-20 MG Baclofen 0.05 MG/ML Baclofen 0.05 MG/ML No Baclofen 0.05 MG/ML Citalopram Hydrobromid e 20 MG Citalopram Hydrobromid e 20 MG No Citalopram Hydrobromi de 20 MG Atorvastati n Calcium 20 MG Atorvastati n Calcium 20 MG No 1{table t} QD Atorvastat in Calcium 20 MG Gabapentin 300 MG Gabapentin 300 MG No 1{capsu le} QD Gabapentin 300 MG Baclofen 10 MG Baclofen 10 MG No Baclofen 10 MG amLODIPine- Olmesartan 5-20 MG amLODIPine- Olmesartan 5-20 MG No amLODIPine -Olmesarta n 5-20 MG PriLOSEC 40 MG PriLOSEC 40 MG No QD PriLOSEC 40 MG Baclofen 0.05 MG/ML Baclofen 0.05 MG/ML No Baclofen 0.05 MG/ML Atorvastati n Calcium 20 MG Atorvastati n Calcium 20 MG No 1{table t} QD Atorvastat in Calcium 20 MG Baclofen 10 MG Baclofen 10 MG No Baclofen 10 MG Gabapentin 300 MG Gabapentin 300 MG No 1{capsu le} QD Gabapentin 300 MG Citalopram Hydrobromid e 20 MG Citalopram Hydrobromid e 20 MG No Citalopram Hydrobromi de 20 MG Citalopram Hydrobromid e 20 MG Citalopram Hydrobromid e 20 MG No Citalopram Hydrobromi de 20 MG amLODIPine- Olmesartan 5-20 MG amLODIPine- Olmesartan 5-20 MG No amLODIPine -Olmesarta n 5-20 MG Gabapentin Gabapentin No Gabapentin amLODIPine- Olmesartan 5-20 MG amLODIPine- Olmesartan 5-20 MG No amLODIPine -Olmesarta n 5-20 MG Citalopram Hydrobromid e 20 MG Citalopram Hydrobromid e 20 MG No Citalopram Hydrobromi de 20 MG Gabapentin Gabapentin No Gabapentin Ambien 10 MG Ambien 10 MG No Ambien 10 MG prilosec prilosec No prilosec Citalopram Hydrobromid e 20 MG Citalopram Hydrobromid e 20 MG No Citalopram Hydrobromi de 20 MG Atorvastati n Calcium 20 MG Atorvastati n Calcium 20 MG No 1{table t} QD Atorvastat in Calcium 20 MG amLODIPine- Olmesartan 5-20 MG amLODIPine- Olmesartan 5-20 MG No amLODIPine -Olmesarta n 5-20 MG Ambien 10 MG Ambien 10 MG No Ambien 10 MG prilosec prilosec No prilosec Citalopram Hydrobromid e 20 MG Citalopram Hydrobromid e 20 MG No Citalopram Hydrobromi de 20 MG Atorvastati n Calcium 20 MG Atorvastati n Calcium 20 MG No 1{table t} QD Atorvastat in Calcium 20 MG amLODIPine- Olmesartan 5-20 MG amLODIPine- Olmesartan 5-20 MG No amLODIPine -Olmesarta n 5-20 MG prilosec prilosec No prilosec Citalopram Hydrobromid e 20 MG Citalopram Hydrobromid e 20 MG No Citalopram Hydrobromi de 20 MG amLODIPine- Olmesartan 5-20 MG amLODIPine- Olmesartan 5-20 MG No amLODIPine -Olmesarta n 5-20 MG Atorvastati n Calcium 20 MG Atorvastati n Calcium 20 MG No 1{table t} QD Atorvastat in Calcium 20 MG Ambien 10 MG Ambien 10 MG No Ambien 10 MG prilosec prilosec No prilosec Citalopram Hydrobromid e 20 MG Citalopram Hydrobromid e 20 MG No Citalopram Hydrobromi de 20 MG amLODIPine- Olmesartan 5-20 MG amLODIPine- Olmesartan 5-20 MG No amLODIPine -Olmesarta n 5-20 MG Atorvastati n Calcium 20 MG Atorvastati n Calcium 20 MG No 1{table t} QD Atorvastat in Calcium 20 MG Ambien 10 MG Ambien 10 MG No Ambien 10 MG prilosec prilosec No prilosec Citalopram Hydrobromid e 20 MG Citalopram Hydrobromid e 20 MG No Citalopram Hydrobromi de 20 MG amLODIPine- Olmesartan 5-20 MG amLODIPine- Olmesartan 5-20 MG No amLODIPine -Olmesarta n 5-20 MG Atorvastati n Calcium 20 MG Atorvastati n Calcium 20 MG No 1{table t} QD Atorvastat in Calcium 20 MG Ambien 10 MG Ambien 10 MG No Ambien 10 MG prilosec prilosec No prilosec Citalopram Hydrobromid e 20 MG Citalopram Hydrobromid e 20 MG No Citalopram Hydrobromi de 20 MG amLODIPine- Olmesartan 5-20 MG amLODIPine- Olmesartan 5-20 MG No amLODIPine -Olmesarta n 5-20 MG Atorvastati n Calcium 20 MG Atorvastati n Calcium 20 MG No 1{table t} QD Atorvastat in Calcium 20 MG Ambien 10 MG Ambien 10 MG No Ambien 10 MG Iron Iron No Iron Atorvastati n Calcium 20 MG Atorvastati n Calcium 20 MG No 1{table t} QD Atorvastat in Calcium 20 MG amLODIPine- Olmesartan 5-20 MG amLODIPine- Olmesartan 5-20 MG No amLODIPine -Olmesarta n 5-20 MG Citalopram Hydrobromid e 20 MG Citalopram Hydrobromid e 20 MG No Citalopram Hydrobromi de 20 MG Lyrica 100 MG Lyrica 100 MG No 1{capsu le} BID Lyrica 100 MG Meloxicam 7.5 MG Meloxicam 7.5 MG No 1{table t} QD Meloxicam 7.5 MG Omeprazole 40 MG Omeprazole 40 MG No QD Omeprazole 40 MG Iron Iron No Iron Atorvastati n Calcium 20 MG Atorvastati n Calcium 20 MG No 1{table t} QD Atorvastat in Calcium 20 MG amLODIPine- Olmesartan 5-20 MG amLODIPine- Olmesartan 5-20 MG No amLODIPine -Olmesarta n 5-20 MG Citalopram Hydrobromid e 20 MG Citalopram Hydrobromid e 20 MG No Citalopram Hydrobromi de 20 MG Lyrica 100 MG Lyrica 100 MG No 1{capsu le} BID Lyrica 100 MG Meloxicam 7.5 MG Meloxicam 7.5 MG No 1{table t} QD Meloxicam 7.5 MG Omeprazole 40 MG Omeprazole 40 MG No QD Omeprazole 40 MG Iron Iron No Iron Atorvastati n Calcium 20 MG Atorvastati n Calcium 20 MG No 1{table t} QD Atorvastat in Calcium 20 MG amLODIPine- Olmesartan 5-20 MG amLODIPine- Olmesartan 5-20 MG No amLODIPine -Olmesarta n 5-20 MG Citalopram Hydrobromid e 20 MG Citalopram Hydrobromid e 20 MG No Citalopram Hydrobromi de 20 MG Lyrica 100 MG Lyrica 100 MG No 1{capsu le} BID Lyrica 100 MG Meloxicam 7.5 MG Meloxicam 7.5 MG No 1{table t} QD Meloxicam 7.5 MG Omeprazole 40 MG Omeprazole 40 MG No QD Omeprazole 40 MG Iron Iron No Iron Atorvastati n Calcium 20 MG Atorvastati n Calcium 20 MG No 1{table t} QD Atorvastat in Calcium 20 MG amLODIPine- Olmesartan 5-20 MG amLODIPine- Olmesartan 5-20 MG No amLODIPine -Olmesarta n 5-20 MG Citalopram Hydrobromid e 20 MG Citalopram Hydrobromid e 20 MG No Citalopram Hydrobromi de 20 MG Lyrica 100 MG Lyrica 100 MG No 1{capsu le} BID Lyrica 100 MG Meloxicam 7.5 MG Meloxicam 7.5 MG No 1{table t} QD Meloxicam 7.5 MG Omeprazole 40 MG Omeprazole 40 MG No QD Omeprazole 40 MG Iron Iron No Iron Atorvastati n Calcium 20 MG Atorvastati n Calcium 20 MG No 1{table t} QD Atorvastat in Calcium 20 MG amLODIPine- Olmesartan 5-20 MG amLODIPine- Olmesartan 5-20 MG No amLODIPine -Olmesarta n 5-20 MG Citalopram Hydrobromid e 20 MG Citalopram Hydrobromid e 20 MG No Citalopram Hydrobromi de 20 MG Lyrica 100 MG Lyrica 100 MG No 1{capsu le} BID Lyrica 100 MG Meloxicam 7.5 MG Meloxicam 7.5 MG No 1{table t} QD Meloxicam 7.5 MG Omeprazole 40 MG Omeprazole 40 MG No QD Omeprazole 40 MG Iron Iron No Iron Atorvastati n Calcium 20 MG Atorvastati n Calcium 20 MG No 1{table t} QD Atorvastat in Calcium 20 MG amLODIPine- Olmesartan 5-20 MG amLODIPine- Olmesartan 5-20 MG No amLODIPine -Olmesarta n 5-20 MG Citalopram Hydrobromid e 20 MG Citalopram Hydrobromid e 20 MG No Citalopram Hydrobromi de 20 MG Lyrica 100 MG Lyrica 100 MG No 1{capsu le} BID Lyrica 100 MG Meloxicam 7.5 MG Meloxicam 7.5 MG No 1{table t} QD Meloxicam 7.5 MG Omeprazole 40 MG Omeprazole 40 MG No QD Omeprazole 40 MG Iron Iron No Iron Atorvastati n Calcium 20 MG Atorvastati n Calcium 20 MG No 1{table t} QD Atorvastat in Calcium 20 MG amLODIPine- Olmesartan 5-20 MG amLODIPine- Olmesartan 5-20 MG No amLODIPine -Olmesarta n 5-20 MG Citalopram Hydrobromid e 20 MG Citalopram Hydrobromid e 20 MG No Citalopram Hydrobromi de 20 MG Lyrica 100 MG Lyrica 100 MG No 1{capsu le} BID Lyrica 100 MG Meloxicam 7.5 MG Meloxicam 7.5 MG No 1{table t} QD Meloxicam 7.5 MG Omeprazole 40 MG Omeprazole 40 MG No QD Omeprazole 40 MG Iron Iron No Iron Atorvastati n Calcium 20 MG Atorvastati n Calcium 20 MG No 1{table t} QD Atorvastat in Calcium 20 MG amLODIPine- Olmesartan 5-20 MG amLODIPine- Olmesartan 5-20 MG No amLODIPine -Olmesarta n 5-20 MG Citalopram Hydrobromid e 20 MG Citalopram Hydrobromid e 20 MG No Citalopram Hydrobromi de 20 MG Lyrica 100 MG Lyrica 100 MG No 1{capsu le} BID Lyrica 100 MG Meloxicam 7.5 MG Meloxicam 7.5 MG No 1{table t} QD Meloxicam 7.5 MG Omeprazole 40 MG Omeprazole 40 MG No QD Omeprazole 40 MG Iron Iron No Iron Atorvastati n Calcium 20 MG Atorvastati n Calcium 20 MG No 1{table t} QD Atorvastat in Calcium 20 MG amLODIPine- Olmesartan 5-20 MG amLODIPine- Olmesartan 5-20 MG No amLODIPine -Olmesarta n 5-20 MG Citalopram Hydrobromid e 20 MG Citalopram Hydrobromid e 20 MG No Citalopram Hydrobromi de 20 MG Lyrica 100 MG Lyrica 100 MG No 1{capsu le} BID Lyrica 100 MG Meloxicam 7.5 MG Meloxicam 7.5 MG No 1{table t} QD Meloxicam 7.5 MG Omeprazole 40 MG Omeprazole 40 MG No QD Omeprazole 40 MG Iron Iron No Iron Atorvastati n Calcium 20 MG Atorvastati n Calcium 20 MG No 1{table t} QD Atorvastat in Calcium 20 MG amLODIPine- Olmesartan 5-20 MG amLODIPine- Olmesartan 5-20 MG No amLODIPine -Olmesarta n 5-20 MG Citalopram Hydrobromid e 20 MG Citalopram Hydrobromid e 20 MG No Citalopram Hydrobromi de 20 MG Lyrica 100 MG Lyrica 100 MG No 1{capsu le} BID Lyrica 100 MG Meloxicam 7.5 MG Meloxicam 7.5 MG No 1{table t} QD Meloxicam 7.5 MG Omeprazole 40 MG Omeprazole 40 MG No QD Omeprazole 40 MG Iron Iron No Iron Atorvastati n Calcium 20 MG Atorvastati n Calcium 20 MG No 1{table t} QD Atorvastat in Calcium 20 MG amLODIPine- Olmesartan 5-20 MG amLODIPine- Olmesartan 5-20 MG No amLODIPine -Olmesarta n 5-20 MG Citalopram Hydrobromid e 20 MG Citalopram Hydrobromid e 20 MG No Citalopram Hydrobromi de 20 MG Gabapentin Gabapentin No Gabapentin Lyrica 100 MG Lyrica 100 MG No 1{capsu le} BID Lyrica 100 MG amLODIPine- Olmesartan 5-20 MG amLODIPine- Olmesartan 5-20 MG No amLODIPine -Olmesarta n 5-20 MG Meloxicam 7.5 MG Meloxicam 7.5 MG No 1{table t} QD Meloxicam 7.5 MG Omeprazole 40 MG Omeprazole 40 MG No QD Omeprazole 40 MG Iron Iron No Iron Vital Signs Vital Name Observation Time Observation Value Comments S musa Body height 2023-12-10 19:20:00 157.5 cm [facility] Body weight 2023-12-10 19:20:00 80.831 kg [facility] BMI 2023-12-10 19:20:00 32.59 kg/m2 [facility] height 2023-01-20 09:30:00 61.50 [in_i] Com [facility] weight 2023-01-20 09:30:00 184 [lb_av] Comm on [facility] temperature 2023-01-20 09:30:00 97.8 [degF] Com [facility] bmi 2023-01-20 09:30:00 34.2 kg/m2 [facility] n [facility] blood pressure systolic 2023-01-20 09:30:00 130 mm[Hg] [facility] blood pressure diastolic 2023-01-20 09:30:00 80 mm[Hg] [facility] height 2022-11-01 09:45:00 61.50 [in_i] Com [facility] weight 2022-11-01 09:45:00 185 [lb_av] Comm on [facility] temperature 2022-11-01 09:45:00 97.6 [degF] Com [facility] bmi 2022-11-01 09:45:00 34.39 kg/m2 Comm on [facility] blood pressure systolic 2022-11-01 09:45:00 132 mm[Hg] [facility] blood pressure diastolic 2022-11-01 09:45:00 84 mm[Hg] [facility] height 2022-09-19 15:30:00 61.50 [in_i] Com [facility] weight 2022-09-19 15:30:00 186 [lb_av] Comm on [facility] temperature 2022-09-19 15:30:00 98.4 [degF] Com [facility] bmi 2022-09-19 15:30:00 34.57 kg/m2 Comm on [facility] blood pressure systolic 2022-09-19 15:30:00 132 mm[Hg] Common [facility] blood pressure diastolic 2022-09-19 15:30:00 84 mm[Hg] [facility] Systolic blood pressure 2022-08-18 20:45:00 131 mm[Hg] [facility] Diastolic blood pressure 2022-08-18 20:45:00 57 mm[Hg] [facility] Heart rate 2022-08-18 20:45:00 83 /min [facility] Body temperature 2022-08-18 20:45:00 37.11 Mitra [facility] Respiratory rate 2022-08-18 20:45:00 16 /min [facility] Body height 2022-08-18 20:45:00 156.2 cm [facility] Body weight 2022-08-18 20:45:00 83.915 kg [facility] BMI 2022-08-18 20:45:00 34.39 kg/m2 [facility] Oxygen saturation in Arterial blood by Pulse oximetry 2022-08-18 20:45:00 97 /min [facility] height 2022-08-12 13:30:00 61.50 [in_i] Com [facility] weight 2022-08-12 13:30:00 187 [lb_av] Comm on [facility] temperature 2022-08-12 13:30:00 97.6 [degF] Com [facility] bmi 2022-08-12 13:30:00 34.76 kg/m2 Comm on [facility] blood pressure systolic 2022-08-12 13:30:00 130 mm[Hg] [facility] blood pressure diastolic 2022-08-12 13:30:00 78 mm[Hg] Common [facility] height 2022-07-03 15:30:00 61.50 [in_i] Com [facility] weight 2022-07-03 15:30:00 188 [lb_av] Comm on [facility] temperature 2022-07-03 15:30:00 97.4 [degF] Com [facility] bmi 2022-07-03 15:30:00 34.94 kg/m2 Comm on [facility] blood pressure systolic 2022-07-03 15:30:00 128 mm[Hg] [facility] blood pressure diastolic 2022-07-03 15:30:00 74 mm[Hg] Common [facility] height 2022-06-12 13:30:00 61.50 [in_i] Com mon [facility] weight 2022-06-12 13:30:00 188 [lb_av] Comm on [facility] temperature 2022-06-12 13:30:00 98.2 [degF] Com mon [facility] bmi 2022-06-12 13:30:00 34.94 kg/m2 Comm on [facility] blood pressure systolic 2022-06-12 13:30:00 127 mm[Hg] [facility] blood pressure diastolic 2022-06-12 13:30:00 76 mm[Hg] [facility] height 2022-05-28 15:40:00 61.50 [in_i] Com [facility] weight 2022-05-28 15:40:00 188.8 [lb_av] Co mmon [facility] temperature 2022-05-28 15:40:00 97.3 [degF] Com [facility] bmi 2022-05-28 15:40:00 35.09 kg/m2 Comm on [facility] oximetry 2022-05-28 15:40:00 95 % Commo n [facility] respiratory rate 2022-05-28 15:40:00 17 /min Common [facility] blood pressure systolic 2022-05-28 15:40:00 131 mm[Hg] [facility] blood pressure diastolic 2022-05-28 15:40:00 66 mm[Hg] [facility] height 2022-05-06 14:30:00 61.50 [in_i] Com [facility] weight 2022-05-06 14:30:00 190 [lb_av] Comm on [facility] temperature 2022-05-06 14:30:00 97.4 [degF] Com [facility] bmi 2022-05-06 14:30:00 35.31 kg/m2 Comm on [facility] blood pressure systolic 2022-05-06 14:30:00 112 mm[Hg] [facility] blood pressure diastolic 2022-05-06 14:30:00 62 mm[Hg] Common [facility] height 2022-04-22 10:00:00 61.50 [in_i] Com [facility] weight 2022-04-22 10:00:00 190 [lb_av] Comm on [facility] bmi 2022-04-22 10:00:00 35.31 kg/m2 Comm on [facility] blood pressure systolic 2022-04-22 10:00:00 105 mm[Hg] [facility] blood pressure diastolic 2022-04-22 10:00:00 55 mm[Hg] [facility] height 2021-12-21 14:40:00 61.50 [in_i] Com [facility] weight 2021-12-21 14:40:00 190.8 [lb_av] Co mmon [facility] temperature 2021-12-21 14:40:00 97.8 [degF] Com [facility] bmi 2021-12-21 14:40:00 35.46 kg/m2 Comm on [facility] oximetry 2021-12-21 14:40:00 97 % Commo n [facility] respiratory rate 2021-12-21 14:40:00 18 /min Common [facility] blood pressure systolic 2021-12-21 14:40:00 130 mm[Hg] Common [facility] blood pressure diastolic 2021-12-21 14:40:00 60 mm[Hg] Common [facility] height 2021-11-05 10:30:00 61.50 [in_i] Com [facility] weight 2021-11-05 10:30:00 188.4 [lb_av] Co mmon [facility] temperature 2021-11-05 10:30:00 98 [degF] Comm on [facility] bmi 2021-11-05 10:30:00 35.02 kg/m2 Comm on [facility] oximetry 2021-11-05 10:30:00 99 % Commo n [facility] respiratory rate 2021-11-05 10:30:00 18 /min [facility] blood pressure systolic 2021-11-05 10:30:00 130 mm[Hg] Common [facility] blood pressure diastolic 2021-11-05 10:30:00 62 mm[Hg] Common [facility] height 2021-09-20 13:00:00 61.50 [in_i] Com [facility] weight 2021-09-20 13:00:00 182 [lb_av] Comm on [facility] bmi 2021-09-20 13:00:00 33.83 kg/m2 Comm on [facility] blood pressure systolic 2021-09-20 13:00:00 118 mm[Hg] [facility] blood pressure diastolic 2021-09-20 13:00:00 68 mm[Hg] Common [facility] height 2021-08-14 13:20:00 61.50 [in_i] Com [facility] weight 2021-08-14 13:20:00 184 [lb_av] Comm on [facility] temperature 2021-08-14 13:20:00 97.3 [degF] Com [facility] bmi 2021-08-14 13:20:00 34.2 kg/m2 Commo n [facility] oximetry 2021-08-14 13:20:00 96 % Commo n [facility] respiratory rate 2021-08-14 13:20:00 20 /min [facility] blood pressure systolic 2021-08-14 13:20:00 114 mm[Hg] Common [facility] blood pressure diastolic 2021-08-14 13:20:00 57 mm[Hg] [facility] height 2021-07-30 13:00:00 61.50 [in_i] Com [facility] weight 2021-07-30 13:00:00 185.6 [lb_av] Co mmon [facility] temperature 2021-07-30 13:00:00 97.2 [degF] Com [facility] bmi 2021-07-30 13:00:00 34.5 kg/m2 Commo n [facility] oximetry 2021-07-30 13:00:00 97 % Commo n [facility] respiratory rate 2021-07-30 13:00:00 16 /min [facility] blood pressure systolic 2021-07-30 13:00:00 125 mm[Hg] [facility] blood pressure diastolic 2021-07-30 13:00:00 63 mm[Hg] [facility] height 2021-06-28 10:30:00 61.50 [in_i] Com [facility] weight 2021-06-28 10:30:00 189 [lb_av] Comm on [facility] bmi 2021-06-28 10:30:00 35.13 kg/m2 Comm on [facility] blood pressure systolic 2021-06-28 10:30:00 124 mm[Hg] [facility] blood pressure diastolic 2021-06-28 10:30:00 74 mm[Hg] Common [facility] height 2021-05-01 13:20:00 61.50 [in_i] Com mon [facility] weight 2021-05-01 13:20:00 188.8 [lb_av] Co mmon [facility] temperature 2021-05-01 13:20:00 96.4 [degF] Com mon [facility] bmi 2021-05-01 13:20:00 35.09 kg/m2 Comm on [facility] oximetry 2021-05-01 13:20:00 97 % Commo n [facility] respiratory rate 2021-05-01 13:20:00 16 /min [facility] blood pressure systolic 2021-05-01 13:20:00 120 mm[Hg] [facility] blood pressure diastolic 2021-05-01 13:20:00 74 mm[Hg] [facility] Body height 2019-06-10 12:54:00 157.5 cm [facility] 2019-06-10 12:54:00 86.183 kg [facility] BMI 2019-06-10 12:54:00 34.75 kg/m2 Univ [facility] Body height 2019-06-10 12:54:00 157.5 cm [facility] Body weight 2019-06-10 12:54:00 86.183 kg [facility] BMI 2019-06-10 12:54:00 34.75 kg/m2 [facility] Body height 2019-05-13 16:13:00 157.5 cm Univ [facility] Body weight 2019-05-13 16:13:00 86.183 kg [facility] BMI 2019-05-13 16:13:00 34.75 kg/m2 [facility] Body height 2019-05-11 19:33:00 157.5 cm Univ [facility] Body weight 2019-05-11 19:33:00 86.183 kg Univ [facility] BMI 2019-05-11 19:33:00 34.75 kg/m2 Univ [facility] Systolic blood pressure 2019-03-30 19:18:00 162 mm[Hg] [facility] Diastolic blood pressure 2019-03-30 19:18:00 84 mm[Hg] [facility] Heart rate 2019-03-30 19:18:00 76 /min [facility] 2019-03-30 19:12:00 157.5 cm [facility] weight 2019-03-30 19:12:00 86.183 kg [facility] BMI 2019-03-30 19:12:00 34.75 kg/m2 [facility] Systolic blood pressure 2019-03-23 19:07:00 130 mm[Hg] [facility] Diastolic blood pressure 2019-03-23 19:07:00 75 mm[Hg] [facility] Body height 2019-03-23 19:07:00 157.5 cm [facility] weight 2019-03-23 19:07:00 86.183 kg Univ [facility] BMI 2019-03-23 19:07:00 34.75 kg/m2 Univ [facility] Systolic blood pressure 2018-11-27 15:19:00 116 mm[Hg] [facility] Diastolic blood pressure 2018-11-27 15:19:00 67 mm[Hg] [facility] Body height 2018-11-27 15:19:00 157.5 cm [facility] weight 2018-11-27 15:19:00 86.183 kg Univ [facility] BMI 2018-11-27 15:19:00 34.75 kg/m2 Univ [facility] Systolic blood pressure 2018-11-26 19:18:00 108 mm[Hg] [facility] Diastolic blood pressure 2018-11-26 19:18:00 68 mm[Hg] [facility] Body height 2018-11-26 19:18:00 157.5 cm [facility] weight 2018-11-26 19:18:00 86.183 kg [facility] BMI 2018-11-26 19:18:00 34.75 kg/m2 [facility] Systolic blood pressure 2018-11-20 01:12:00 150 mm[Hg] [facility] Diastolic blood pressure 2018-11-20 01:12:00 86 mm[Hg] [facility] Heart rate 2018-11-20 01:12:00 86 /min Unive [facility] Body temperature 2018-11-20 01:12:00 36.83 Mitra [facility] Respiratory rate 2018-11-20 01:12:00 18 /min [facility] Body height 2018-11-20 01:12:00 157.5 cm [facility] Body weight 2018-11-20 01:12:00 86.183 kg [facility] BMI 2018-11-20 01:12:00 34.75 kg/m2 [facility] Oxygen saturation in Arterial blood by Pulse oximetry 2018-11-20 01:12:00 98 /min [facility] BMI Calculated 2017-03-12 22:05:00 [facility] 2017-03-12 22:05:00 [facility] Height 2017-03-12 22:05:00 158.75 cm [facility] Temperature Oral (F) 2017-03-12 22:05:00 97.8 F [facility] Heart Rate 2017-03-12 22:05:00 [facility] Systolic (mm Hg) 2017-03-12 22:05:00 [facility] Diastolic (mm Hg) 2017-03-12 22:05:00 [facility] Procedures Procedure Date / Time Performed Performing Clinician Source XR HAND 3+ VW BILATERAL 2023-12-10 19:58:43 Elena Espino [facility] ASSIGNMENT OF BENEFITS 2022-08-18 20:37:56 Docto r Unassigned, [place] [facility] XR CHEST 1 VW 2019-05-19 16:40:22 [facility] 2019-05-19 15:54:41 Docto r Unassigned, [place] [facility] MR KNEE LEFT WO CONTRAST 2019-05-11 20:16:34 Elena Espino [facility] UNILATERAL VENOUS DUPLEX LOWER EXTREMITY BY VASCULAR LAB 2018-11-26 21:45:02 Chau Solano [facility] NOTICE OF PRIVACY PRACTICES 2018-11-26 20:46:54 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, [place] [facility] CONSENT/REFUSAL FOR DIAGNOSIS AND TREATMENT 2018-11-26 20:46:39 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, [place] [facility] ASSIGNMENT OF BENEFITS 2018-11-26 20:46:20 Docto r Unassigned, [place] [facility] D-DIMER 2018-11-20 01:33:00 Louie Jerez [facility] NOTICE OF PRIVACY PRACTICES 2018-11-20 01:09:41 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, [place] [facility] CONSENT/REFUSAL FOR DIAGNOSIS AND TREATMENT 2018-11-20 01:05:31 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, [place] [facility] Bl[facility] Operation [facility] Encounters Start Date/Time End Date/Time Encounter Type Admission Type Attending [facility] Care Facility Care Department Encounter ID Source 2022-08-08 14:47:00 Outpatient [facility] [id number] [facility] 2022-05-17 11:41:01 Outpatient Destiny, Ashwini [facility] [id number] [facility] 2022-04-15 10:24:01 Outpatient Cesilia PEREZ [facility] [id number] [facility] 2021-12-26 08:19:01 Outpatient Cesilia Perez [facility] [id number] [facility] 2021-12-14 08:58:01 Outpatient Cesilia Perez [facility] [id number] [facility] 2021-08-07 10:29:01 Outpatient Cesilia Perez [facility] [id number] [facility] 2021-07-26 08:45:01 Outpatient Cesilia Perez [facility] [id number] [facility] 2021-06-27 14:40:02 Outpatient Perez, Na [facility] [id number] [facility] 2021-04-04 13:35:08 Outpatient Perez, Na [facility] [id number] [facility] 2021-04-04 13:13:45 Outpatient Perez, Na [facility] [id number] [facility] 2021-04-04 13:04:57 Outpatient Perez, Na [facility] [id number] [facility] 2021-04-04 13:00:30 Outpatient Perez, Na [facility] [id number] [facility] 2021-04-04 12:59:52 Outpatient Perez, Na [facility] [id number] [facility] 2021-04-04 12:51:20 Outpatient Perez, Na [facility] [id number] [facility] 2021-04-04 12:02:27 Outpatient Perez, Na [facility] [id number] [facility] 2021-04-04 12:01:03 Outpatient Perez, Na [facility] [id number] [facility] 2021-04-04 11:33:49 Outpatient Perez, Na [facility] [id number] [facility] 2021-04-04 11:33:44 Outpatient Perez, Na [facility] [id number] [facility] 2021-04-04 11:17:12 Outpatient Perez, Na [facility] [id number] [facility] 2023-12-10 14:50:26 2023-12-10 23:59:00 Hospital Encounter Elena Espino [facility] JOSE M?ELSY [facility] MEDICAL OFFICE BUILDING [id number] [facility] 2023-12-10 15:00:00 2023-12-10 15:12:00 Outpatient R ELENA ESPINO CRAIG [facility] [id number] [facility] 2023-12-10 15:00:00 2023-12-10 15:12:00 Office Visit Elena Espino [facility]?BANNERDeidra [facility] MEDICAL OFF[facility] BUILD[facility] [id number] [facility] 2023-12-04 00:00:00 2023-12-10 10:33:14 Telephone Elena Espino [facility]?BANNERDeidra [facility] MEDICAL OFFICE BUILDING [id number] [facility] 2023-12-04 16:00:00 2023-12-04 16:00:00 Outpatient R ELENA ESPINO CRAIG [facility] [id number] [facility] 2023-01-20 00:00:00 2023-01-20 00:00:00 (ESTPT) Establishe d Patient [facility] [id number] [facility] 2023-01-07 00:00:00 2023-01-07 00:00:00 Outpatient [email or web address] vj_S [facility] [id number] [facility] 2022-11-01 00:00:00 2022-11-01 00:00:00 NON-BILLAB LE VISIT [facility] [id number] [facility] 2022-09-19 00:00:00 2022-09-19 00:00:00 NON-BILLAB LE VISIT [facility] [id number] [facility] 2022 00:00:00 2022 00:00:00 (TEL) [facility] [id number] [facility] 2022-08-18 15:40:00 2022-08-18 16:08:36 Outpatient R BRYNN BROOKS [facility] [id number] [facility] 2022-08-18 15:40:00 2022-08-18 16:08:36 Urgent Care Brynn Brooks Unknown, Attending [facility]?ELSY [facility] MEDICAL OFFICE BUILDING [id number] [facility] 2022-08-18 00:00:00 2022-08-18 00:00:00 Orders Only 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, [place] [facility] [id number] [facility] 2022-08-14 00:00:00 2022-08-14 00:00:00 (TEL) [facility] [id number] [facility] 2022-08-12 00:00:00 2022-08-12 00:00:00 OFFICE VISIT ESTAB PT LEVEL 3 [facility] [id number] [facility] 2022-07-03 00:00:00 2022-07-03 00:00:00 OFFICE VISIT ESTAB PT LEVEL 3 [facility] [id number] [facility] 2022-06-26 00:00:00 2022-06-26 00:00:00 (TEL) [facility] [id number] [facility] 2022-06-21 00:00:00 2022-06-21 00:00:00 (TEL) [facility] [id number] [facility] 2022-06-13 00:00:00 2022-06-13 00:00:00 (TEL) [facility] [id number] [facility] 2022-06-12 00:00:00 2022-06-12 00:00:00 OFFICE VISIT ESTAB PT LEVEL 3 [facility] [id number] [facility] 2022-05-28 00:00:00 2022-05-28 00:00:00 OFFICE VISIT ESTAB PT LEVEL 3 [facility] [id number] [facility] 2022-05-17 00:00:00 2022-05-17 00:00:00 (TEL) [facility] [id number] [facility] 2022-05-14 00:00:00 2022-05-14 00:00:00 (TEL) [facility] [id number] [facility] 2022-05-07 00:00:00 2022-05-07 00:00:00 (WEB) [facility] [id number] [facility] 2022-05-06 00:00:00 2022-05-06 00:00:00 OFFICE VISIT ESTAB PT LEVEL 3 [facility] [id number] [facility] 2022-04-24 00:00:00 2022-04-24 00:00:00 (TEL) [facility] [id number] [facility] 2022-04-22 00:00:00 2022-04-22 00:00:00 (ESTPT) Establishe d Patient [facility] [id number] [facility] 2022-04-17 00:00:00 2022-04-17 00:00:00 (TEL) [facility] [id number] [facility] 2022-02-04 00:00:00 2022-02-04 00:00:00 (TEL) [facility] [id number] [facility] 2022-01-03 00:00:00 2022-01-03 00:00:00 (WEB) [facility] [id number] [facility] 2022-01-02 00:00:00 2022-01-02 00:00:00 (TEL) [facility] [id number] [facility] 2022-01-01 00:00:00 2022-01-01 00:00:00 (WEB) [facility] [id number] [facility] 2021-12-26 00:00:00 2021-12-26 00:00:00 (WEB) [facility] [id number] [facility] 2021-12-21 00:00:00 2021-12-21 00:00:00 OFFICE VISIT EST PT LEVEL 3 [facility] [id number] [facility] 2021-11-15 00:00:00 2021-11-15 00:00:00 (WEB) [facility] [id number] [facility] 2021-11-05 00:00:00 2021-11-05 00:00:00 OFFICE VISIT NEW PT LEVEL 2 [facility] [id number] [facility] 2021-10-17 00:00:00 2021-10-17 00:00:00 (TEL) [facility] [id number] [facility] 2021-10-02 00:00:00 2021-10-02 00:00:00 (WEB) [facility] [id number] [facility] 2021-09-28 00:00:00 2021-09-28 00:00:00 (WEB) [facility] [id number] [facility] 2021-09-26 00:00:00 2021-09-26 00:00:00 (TEL) [facility] [id number] [facility] 2021-09-24 00:00:00 2021-09-24 00:00:00 (TEL) [facility] [id number] [facility] 2021-09-20 00:00:00 2021-09-20 00:00:00 OFFICE VISIT EST PT LEVEL 3 [facility] [id number] [facility] 2021-09-05 00:00:00 2021-09-05 00:00:00 (TEL) [facility] [id number] [facility] 2021-09-02 00:00:00 2021-09-02 00:00:00 (WEB) [facility] [id number] [facility] 2021-09-02 00:00:00 2021-09-02 00:00:00 (TEL) [facility] [id number] [facility] 2021-08-15 00:00:00 2021-08-15 00:00:00 (TEL) [facility] [id number] [facility] 2021-08-14 00:00:00 2021-08-14 00:00:00 OFFICE VISIT EST PT LEVEL 3 [facility] [id number] [facility] 2021-08-03 00:00:00 2021-08-03 00:00:00 (TEL) [facility] [id number] [facility] 2021-08-02 00:00:00 2021-08-02 00:00:00 (WEB) [facility] [id number] [facility] 2021-07-30 00:00:00 2021-07-30 00:00:00 OFFICE VISIT ESTAB PT LEVEL 4 [facility] [id number] [facility] 2021-07-24 00:00:00 2021-07-24 00:00:00 (TEL) [facility] [id number] [facility] 2021-07-19 00:00:00 2021-07-19 00:00:00 (TEL) [facility] [id number] [facility] 2021-07-17 00:00:00 2021-07-17 00:00:00 (TEL) [facility] [id number] [facility] 2021-07-13 00:00:00 2021-07-13 00:00:00 (TEL) [facility] [id number] [facility] 2021-06-29 00:00:00 2021-06-29 00:00:00 (WEB) [facility] [id number] [facility] 2021-06-28 00:00:00 2021-06-28 00:00:00 OFFICE VISIT NEW PT LEVEL 3 [facility] [id number] [facility] 2021-06-26 00:00:00 2021-06-26 00:00:00 (WEB) [facility] [id number] [facility] 2021-06-02 00:00:00 2021-06-02 00:00:00 (WEB) [facility] [id number] [facility] 2021-05-01 00:00:00 2021-05-01 00:00:00 OFFICE VISIT ESTAB PT LEVEL 4 [facility] [id number] [facility] 2021-04-03 00:00:00 2021-04-03 00:00:00 (WEB) [facility] [id number] [facility] 2021-03-22 00:00:00 2021-03-22 00:00:00 (TEL) [facility] [id number] [facility] 2021-03-22 00:00:00 2021-03-22 00:00:00 (TEL) [facility]C [facility] [id number] [facility] 2021-02-08 00:00:00 2021-02-08 00:00:00 (TEL) [facility] [id number] [facility] 2021-01-31 00:00:00 2021-01-31 00:00:00 (TEL) [facility] [id number] [facility] 2021-01-31 00:00:00 2021-01-31 00:00:00 OL DIG E/M SVC 11-20 MIN [facility] [id number] [facility] 2020-11-24 00:00:00 2020-11-24 00:00:00 (TEL) [facility]C [facility] [id number] [facility] 2020-11-16 00:00:00 2020-11-16 00:00:00 (TEL) [facility] [id number] [facility] 2020-10-13 00:00:00 2020-10-13 00:00:00 Outpatient [facility] [id number] [facility] 2020-10-09 00:00:00 2020-10-09 00:00:00 Outpatient [facility] [id number] [facility] 2020-08-18 00:00:00 2020-08-18 00:00:00 Outpatient [facility] [id number] [facility] 2020-08-17 00:00:00 2020-08-17 00:00:00 Outpatient [facility] [id number] [facility] 2020-08-14 00:00:00 2020-08-14 00:00:00 Outpatient [facility] [id number] [facility] 2020-07-26 00:00:00 2020-07-26 00:00:00 Outpatient [facility] [id number] [facility] 2020-07-26 00:00:00 2020-07-26 00:00:00 Outpatient [facility] [id number] [facility] 2020-07-13 00:00:00 2020-07-13 00:00:00 Outpatient [facility] [id number] [facility] 2020-06-22 00:00:00 2020-06-22 00:00:00 Outpatient [facility] ST[facility]C [id number] [facility] 2020-03-15 00:00:00 2020-03-15 00:00:00 Outpatient [facility] [id number] [facility] 2020-01-14 00:00:00 2020-01-14 00:00:00 Outpatient [facility] [id number] [facility] 2019-11-30 00:00:00 2019-11-30 00:00:00 Outpatient [facility]C [id number] [facility] 2019-11-16 15:00:00 2019-11-16 15:00:[facility] [id number] [facility] 2019-11-05 09:21:00 2019-11-05 09:21:[facility] [id number] [facility] 2019-10-29 11:34:00 2019-10-29 11:34:00 [facility] [facility] [place] [facility] [id number] [facility] 2019-10-29 10:00:00 2019-10-29 10:00:00 [facility] [place] [facility] [id number] [facility] 2019-10-28 14:09:00 2019-10-28 14:09:00 [facility] [place] [facility] [id number] [facility] 2019-10-11 15:20:00 2019-10-11 15:20:00 [facility] [place] [facility] [id number] [facility] 2019-10-07 10:56:00 2019-10-07 10:56:[address] [facility] [place] [facility] [id number] [facility] 2019-10-07 10:00:00 2019-10-07 10:00:00 [facility] [place] [facility] [id number] [facility] 2019-10-06 15:33:00 2019-10-06 15:33:[address] [facility] [place] [facility] [id number] [facility] 2019-10-06 13:46:00 2019-10-06 13:46:[address] [facility] [place] [facility] [id number] [facility] 2019-09-30 10:09:00 2019-09-30 10:09:[address] [facility] [facility] [place] [facility] [id number] [facility] 2019-08-29 03:04:00 2019-08-29 03:04:[address] [facility] [place] [facility] [id number] [facility] 2019-08-26 02:31:00 2019-08-26 02:31:[address] [facility] [place] [facility] [id number] [facility] 2019-08-16 08:05:00 2019-08-16 08:05:[address] [facility] [place] [facility] [id number] [facility] 2019-08-13 13:00:00 2019-08-13 13:00:[address] [facility] [place] [facility] [id number] [facility] 2019-08-13 13:00:00 2019-08-13 13:00:[address] [facility] [place] [facility] [id number] [facility] 2019-06-10 07:53:05 2019-06-10 08:11:21 Office Visit Elena Espino [facility] Special[facility] nigel Garcia 1.2.840.114 350.1.13.10 4.2.7.2.686 [id number] [facility] 2019-06-10 07:53:05 2019-06-10 08:11:21 Office Visit Elena Espino [facility] nigel [place] 1.2.840.114 350.1.13.10 4.2.7.2.686 [id number] 2019-06-10 08:00:00 2019-06-10 08:00:00 Outpatient R ELENA ESPINO [facility] [id number] [facility] 2019-06-10 00:00:00 2019-06-10 00:00:00 Telephone Elena Espino [facility] Surgical Special nigel Garcia 1.2.840.114 350.1.13.10 4.2.7.2.686 [id number] [facility] 2019-06-10 00:00:00 2019-06-10 00:00:00 Telephone Elena Espino [facility] Surgical Special nigel [place] 1.2.840.114 350.1.13.10 4.2.7.2.686 [id number] 2019-06-09 13:15:00 2019-06-09 13:15:00 Outpatient Marshal SOLANOCHAU [facility] [id number] [facility] 2019-06-07 13:30:00 2019-06-07 13:30:00 [facility] [id number] [facility] 2019-06-04 09:00:00 2019-06-04 09:00:00 [facility] [id number] [facility] 2019-06-03 09:15:00 2019-06-03 09:15:00 Outpatient Marshal [facility]OMARA [facility] [place] [id number] [facility] 2019-05-26 11:59:34 2019-05-26 23:59:00 Hospital Encounter Elena Espino [facility] 1.2.840.114 350.1.13.10 4.2.7.2.686 [id number] [facility] 2019-05-26 00:00:00 2019-05-26 00:00:00 Outpatient R ELENA ESPINO [facility] [id number] [facility] 2019-05-26 00:00:00 2019-05-26 00:00:00 Telephone Chau Solano [facility] Surgical Specialti nigel Garcia 1.2.840.114 350.1.13.10 4.2.7.2.686 [id number] [facility] 2019-05-19 11:06:52 2019-05-19 11:21:52 Interpreter Visit Pob, Adc Lab Main [facility] 1.20.114 350.1.13.10 4.2.7.2.686 [id number] [facility] 2019-05-19 11:07:51 2019-05-19 11:14:00 Outpatient R ELENA ESPINO [facility] [id number] [facility] 2019-05-19 11:00:00 2019-05-19 11:14:00 Hospital Encounter Elena Espino [facility] 1.2840.114 350.1.13.10 4.2.7.2.686 [id number] [facility] 2019-05-19 00:00:00 2019-05-19 00:00:00 Orders Only 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, [place] [facility] 1.2840.114 350.1.13.10 4.2.7.2.686 [id number] [facility] 2019-05-17 00:00:00 2019-05-17 00:00:00 Telephone Elena Espino [facility] Surgical Specialadriana [place] 1.2.840.114 350.1.13.10 4.2.7.2.686 [id number] [facility] 2019-05-13 10:05:58 2019-05-13 14:22:17 Office Visit Elena Espino [facility] Surgical Specialti nigel Garcia 1.2.840.114 350.1.13.10 4.2.7.2.686 [id number] [facility] 2019-05-13 10:30:00 2019-05-13 10:30:00 Outpatient R ELENA ESPINO [facility] [id number] [facility] 2019-05-11 11:50:30 2019-05-11 23:59:00 Outpatient R ELENA ESPINO [facility] [id number] [facility] 2019-05-11 11:50:00 2019-05-11 23:59:00 Hospital Encounter Elena Espino [facility] 1.2.840.114 350.1.13.10 4.2.7.2.686 [id number] [facility] 2019-04-27 00:00:00 2019-04-27 00:00:00 Telephone Xiomara [facility] Surgical Specialti nigel [place] 1.2.840.114 350.1.13.10 4.2.7.2.686 [id number] [facility] 2019-03-30 13:10:27 2019-03-30 13:25:27 Office Visit Xiomara [facility] Surgical Specialti nigel Garcia 1.2.840.114 350.1.13.10 4.2.7.2.686 [id number] [facility] 2019-03-23 13:05:56 2019-03-23 13:27:49 Office Visit Xiomara [facility] Surgical Specialti nigel Garcia 1.2.840.114 350.1.13.10 4.2.7.2.686 [id number] [facility] 2018-11-27 10:18:07 2018-11-27 10:41:45 Office Visit Xiomara [facility] Surgical Specialti nigel [place] 1.2.840.114 350.1.13.10 4.2.7.2.686 [id number] [facility] 2018-11-26 15:54:44 2018-11-26 23:59:00 Hospital Encounter VegaElena, Adc Cardio Vascular [facility] 1.2.840.114 350.1.13.10 4.2.7.2.686 [id number] [facility] 2018-11-26 14:40:06 2018-11-26 15:53:00 [facility] 1.2.840.114 350.1.13.10 4.2.7.2.686 [id number] [facility] 2018-11-26 14:04:15 2018-11-26 15:34:29 Office Visit Xiomara [facility] Surgical Specialti [facility] 1.2.840.114 350.1.13.10 4.2.7.2.686 [id number] [facility] 2018-11-19 20:24:29 2018-11-19 21:34:00 Emergency Louie Jerez [facility] 1.2.840.114 350.1.13.10 4.2.7.2.686 [id number] [facility] 2017-03-12 13:45:00 2017-03-13 05:59:59 Outpatient nullFlavo r [facility] [id number] Medina Lawson 2017-03-11 15:25:00 2017-03-13 05:59:59 Phone Message nullFlavo r [facility] [id number] Medina Lawson Results Test Description Test Time Test Comments Results Result Comments Source XR CHEST 1 VW 16:46:19 HISTORY: Preop. FINDINGS: ?AP view of the chest showed upper normal appearance of thecardiomediastinal silhouette. No acute pneumonia, pleural effusion,pulmonary congestion detected. Lower cervical ACDF surgical changes noted. CONCLUSIONS: No signs of acute cardiopulmonary disease. [facility], [facility] Results Inft - 05/19/2019 11:47 AM CDTHISTORY: Preop.FINDINGS: AP view of the chest showed upper normal appearance of thecardiomediastinal silhouette. No acute pneumonia, pleural effusion,pulmonary congestion detected. Lower cervical ACDF surgical changes noted.CONCLUSIONS: No signs of acute cardiopulmonary disease. [facility] MR KNEE LEFT WO CONTRAST 20:23:06 HISTORY: ?Pain in the left knee and left knee catches and pops. TECHNIQUE: MR imaging of [...] of medial meniscusextending into the body portion. [facility] CHEST 2 VIEWS 10:09:00 [facility] [address] [address] Patient Name: BLANKA KURTZ MR #: [id number] : 1945 Age/Sex: 73/F Req #: [id number] Adm Physician: Ordered by: SILVIA CM MD Report #: [id number] Location: OR Room/Bed: ___ Procedure: [id number] DX/CHEST 2 VIEWS Exam Date: 12/08/18 Exam Time: 0950 REPORT STATUS: Signed TECHNIQUE: Frontal and lateral views of the chest. INDICATION: PRE-OP [facility]O [id number]. COMPARISON: None. FINDINGS: LINES/TUBES: None. LUNGS: [...] AUDREY on 12/08/18 1013 COPY TO: SILVIA MC MD [facility] Wo ContMRI Hip Right Wo Cont Abdomen 1 View (KUB)Abdomen 1 View (KUB) Notes Date/Time Note Provider Source 2023-12-04 13:36:02 [facility] sent referral scanned in chart Katerina Reynoso [facility]
--- NOTE | 2024-06-07 14:07 | RAD REPORT ---
EXAMINATION: Forearm Right CLINICAL INDICATION: Female, 78 years old. PAIN COMPARISON: No prior exam. VIEWS: Three views IMPRESSION: No right forearm fracture. No soft tissue abnormality appreciated.
--- NOTE | 2024-06-07 14:10 | ER ---
Nurse's Notes [facility] Name: Blanka Parker Age: 78 yrs Sex: Female : 1945 Arrival Date: 06/07/2024 Time: 13:17 Bed 18 Private MD: Diagnosis: Contusion of right forearm Presentation: 06/07 13:27 Chief complaint: Patient states: R forearm pain after tripping and falling onto a curio ss cabinet. Coronavirus screen: Client denies travel out of the [place] in the last 14 days. Ebola Screen: Patient denies exposure to infectious person. Patient denies travel to an Ebola-affected area in the 21 days before illness onset. Initial Sepsis Screen: Does the patient meet any 2 criteria? No. Patient's initial sepsis screen is negative. Does the patient have a suspected source of infection? No. Patient's initial sepsis screen is negative. Risk Assessment: Do you want to hurt yourself or someone else? Patient reports no desire to harm self or others. Onset of symptoms was June 07, 2024. 13:27 Method Of Arrival: Ambulatory ss 13:27 Acuity: PETEY 4 ss Triage Assessment: 14:21 General: Appears in no apparent distress. comfortable, Behavior is calm, cooperative. cm10 Injury Description: fall. Historical: - Allergies: 13:24 Codeine; ll1 13:24 COLLAGENASE; ll1 13:24 Demerol; ll1 13:24 hydromorphone; ll1 13:24 Lidocaine; ll1 13:24 PENICILLINS; ll1 13:24 Sulfa (Sulfonamide Antibiotics); ll1 13:24 venlafaxine; ll1 13:24 Zanaflex; ll1 - PMHx: 13:24 Anxiety; degenerative joint disease; Diverticulitis; GERD; High Cholesterol; ll1 Hypertension; - PSHx: 13:24 Appendectomy; back; bladder sling; Cholecystectomy; hysterectomy; neck fusion X 2; ll1 Right hip; - Immunization history:: Adult Immunizations up to date. - Infectious Disease History:: Denies. - Social history:: Smoking status: Patient denies any tobacco usage or history of. Screenin:29 [facility] ED Fall Risk Assessment (Adult) History of falling in the last 3 months, ss including since admission No falls in past 3 months (0 pts) Confusion or Disorientation No (0 pts) Intoxicated or Sedated No (0 pts) Impaired Gait No (0 pts) Mobility Assist Device Used No (0 pt) Altered Elimination No (0 pt) Score/Fall Risk Level 0 - 2 = Low Risk Oriented to surroundings, Maintained a safe environment, Educated pt \T\ family on fall prevention, incl call for assistance when getting out of bed. Abuse screen: Denies threats or abuse. Denies injuries from another. Nutritional screening: No deficits noted. Tuberculosis screening: Never had TB. Assessment: 13:29 General: Appears in no apparent distress. Behavior is calm, cooperative, Denies fever, ss feeling ill, fatigue, chills. Pain: Complains of pain in palmar aspect of right forearm Pain currently is 0 out of 10 on a pain scale. at worst was 4 out of 10 on a pain scale. Quality of pain is described as tender, Pain began suddenly, Is continuous. Neuro: Level of Consciousness is awake, alert, obeys commands. Cardiovascular: Pulses are palpable in right radial artery and left radial artery. Respiratory: Airway is patent Respiratory effort is even, unlabored, Respiratory pattern is regular, symmetrical. GI: Patient currently denies diarrhea, nausea, vomiting. EENT: Oral mucosa is moist. Derm: Skin is intact, is healthy with good turgor, Skin is dry, Skin is pink, warm \T\ dry. normal. Musculoskeletal: Swelling absent. 14:20 Reassessment: Patient appears in no apparent distress at this time. Patient and/or cm10 family updated on plan of care and expected duration. Pain level reassessed. Patient is alert, oriented x 3, equal unlabored respirations, skin warm/dry/pink. Vital Signs: 13:27 BP 132 / 85; Pulse 76; Resp 16; Temp 97.6(TE); Pulse Ox 98% on R/A; Pain 0/10; ss 13:27 Pain Scale: Adult ss ED Course: 13:19 Patient arrived in ED. im 13:20 Lenka Almaraz, SCOTTIE is Primary Nurse. cm10 13:22 Sheree Leggett PA-C is PHCP. sb4 13:22 Stevan Saucedo MD is Attending Physician. sb4 13:24 Arm band placed on Patient placed in an exam room, on a stretcher. ll1 13:29 Triage completed. ss 13:29 Patient has correct armband on for positive identification. Bed in low position. ss 14:02 Forearm Right XRAY In Process Unspecified. EDMS 14:20 No provider procedures requiring assistance completed. Patient did not have IV access cm10 during this emergency room visit. 14:21 Provided Education on: follow-up instructions. cm10 Administered Medications: No medications were administered Medication: 13:29 VIS not applicable for this client. ss Outcome: 14:09 Discharge ordered by MD. petersen 14:21 Discharged to home ambulatory, with significant other, cm10 14:21 Condition: good 14:21 Discharge instructions given to patient, Instructed on discharge instructions, follow up and referral plans. Demonstrated understanding of instructions, follow-up care, 14:21 Patient left the ED. cm10 Signatures: Dispatcher [employer] EDMS Arti Marie, RN RN Funmilayo Gandara RN RN ll1 Sheree Leggett, PA-C PA-C Elida Amado Clarissa, RN RN cm10
--- NOTE | 2024-06-07 14:10 | EDPHYS ---
Physician Documentation [facility] Name: Blanka Parker Age: 78 yrs Sex: Female : 1945 Arrival Date: 06/07/2024 Time: 13:17 Bed 18 Private MD: PAVAN Physician Stevan Saucedo HPI: 06/07 13:26 This 78 yrs old Female presents to ER via Unassigned with complaints of Arm Injury - sb4 right. 13:26 tripped on furniture and hit right forearm on another piece of furniture. complaining sb4 of pain in her right forearm just inferior to the elbow. small abrasion noted. no other injuries. states pain has improved with ice. Historical: - Allergies: 13:24 Codeine; ll1 13:24 COLLAGENASE; ll1 13:24 Demerol; ll1 13:24 hydromorphone; ll1 13:24 Lidocaine; ll1 13:24 PENICILLINS; ll1 13:24 Sulfa (Sulfonamide Antibiotics); ll1 13:24 venlafaxine; ll1 13:24 Zanaflex; ll1 - PMHx: 13:24 Anxiety; degenerative joint disease; Diverticulitis; GERD; High Cholesterol; ll1 Hypertension; - PSHx: 13:24 Appendectomy; back; bladder sling; Cholecystectomy; hysterectomy; neck fusion X 2; ll1 Right hip; - Immunization history:: Adult Immunizations up to date. - Infectious Disease History:: Denies. - Social history:: Smoking status: Patient denies any tobacco usage or history of. ROS: 13:26 Constitutional: Negative for fever, chills, and weight loss, sb4 13:26 MS/extremity: Positive for injury or acute deformity, pain, of the palmar aspect of right forearm, 13:26 All other systems are negative, Exam: 13:26 Constitutional: This is a well developed, well nourished patient who is awake, alert, sb4 and in no acute distress. Head/Face: Normocephalic, atraumatic. Eyes: Extra-ocular motions intact. Periorbital areas with no swelling, redness, or edema. ENT: Mucous membranes moist. Respiratory: No increased work of breathing, no retractions or nasal flaring. 13:26 Skin: injury, abrasion(s), very small abrasion noted, of the palmar aspect of right forearm, 13:27 Musculoskeletal/extremity: ROM: intact in all extremities, Circulation is intact in all sb4 extremities. Sensation intact. Vital Signs: 13:27 BP 132 / 85; Pulse 76; Resp 16; Temp 97.6(TE); Pulse Ox 98% on R/A; Pain 0/10; ss 13:27 Pain Scale: Adult ss MDM: 13:22 Medical Screening Exam initiated sb4 14:06 Data reviewed: vital signs, nurses notes, radiologic studies, and as a result, I will sb4 discharge patient. Independent interpretation of the following test(s) in the Emergency Department X-Ray: My interpretation is My interpretation of the right forearm x-ray is images is no acute fracture. Counseling: I had a detailed discussion with the patient and/or guardian regarding the historical points, exam findings, and any diagnostic results supporting the discharge/admit diagnosis, radiology results, to return to the emergency department if symptoms worsen or persist or if there are any questions or concerns that arise at home. 06/07 13:24 Order name: Forearm Right XRAY; Complete Time: 14:08 sb4 Administered Medications: No medications were administered Disposition Summary: 06/07/24 14:09 Discharge Ordered Notes: Location: Home sb4 Problem: new sb4 Symptoms: have improved sb4 Condition: Stable sb4 Diagnosis - Contusion of right forearm sb4 Followup: sb4 - With: Private Physician - When: As needed - Reason: Recheck today's complaints, Re-evaluation by your physician Discharge Instructions: - Discharge Summary Sheet sb4 - Contusion, [id number] sb4 Forms: - Patient Portal Instructions sb4 - Leadership Thank You Letter sb4 Addendum: 06/08/2024 15:32 Co-signature as Attending Physician, Stevan Saucedo MD I agree with the assessment and c patino plan of care. Signatures: Dispatcher [employer] EDStevan Morales MD MD cha Blanchard, Shelby, RN RN ss Funmilayo Mehta RN RN ll1 Sheree Leggett PAMichaelC PA-C sb4 Lenka Almaraz RN RN cm10
[2024-06-07 14:26] VITALS: BP 132/85; TEMP 97.6; O2SAT 98
== END 2024-06-07 14:21 | disposition home or self-care (01) ==
LOC: ER 13:17
DX: S50.11XA Contusion of right forearm, initial encounter (principal); W01.190A Fall on same level from slipping, tripping and stumbling with subsequent striking against furniture, initial encounter
CPT/HCPCS: 99282

== ENCOUNTER 2024-10-14 17:21 | Emergency (ER) | payer OTHER ==
[2024-10-14] MEDS ORDERED: KETOROLAC 30 MG/ML INJ ONE (19:38)
[2024-10-14] MEDS ORDERED: ACETAMINOPHEN 500 MG TAB ONE (19:39)
[2024-10-14 19:43] LABS: Absolute Lymphocytes (CBC) 1.9 K/uL (0.7-4.9); Hematocrit 32.0 % (36.0-45.0); Hemoglobin 10.3 g/dL (12.0-15.0); MCH 24.4 pg (27.0-35.0); MCHC 32.1 g/dL (32.0-36.0); MCV 76.0 fL (80-100); MPV 8.3 fL (7.6-11.3); Nucleated RBC Absolute Count 0.0 (0-0); Nucleated Red Blood Cells % 0.1 % (0-0); RBC Red Blood Cell Count 4.21 M/uL (3.86-4.86); White Blood Count 7.30 thou/uL (4.3-10.9)
--- NOTE | 2024-10-14 19:55 | RAD REPORT ---
EXAMINATION: CT Abdomen Pelvis Wo Contrast CLINICAL INDICATION: Female, 79 years old. ABD PAIN TECHNIQUE: CT abdomen and pelvis was performed, without IV contrast, as per department protocol. Axia l, sagittal and coronal reconstructions were obtained. One or more of the following dose reduction techniques were used: Automated exposure control, adjustment of the mA and kV according to the patien t size, and iterative reconstruction. Unless otherwise specified, incidental findings do not require dedicated imaging follow-up. COMPARISON: 08/29/2024 FINDINGS: The lack of intravenous contrast limits the sensitivity of this exam for evaluation of solid visceral organs, vascular structures, and retroperitoneum. LOWER CHEST: The visualized lung bases are clear. LIVER: Normal in size and contour. No focal lesion. BILIARY SYSTEM: Status post cholecystectomy. SPLEEN: Normal size. No focal lesion. PANCREAS: No mass, ductal dilation, or donte-pancreatic fluid. ADRENALS: 2 cm right adrenal nodule, stable. KIDNEYS AND URETERS: Normal size and contour. Left interpolar cortical exophytic 4.4 cm cyst, stable. 4 mm left lower pole calculus and another punctate 2 mm calculus more superiorly. No hydronephrosis. URINARY BLADDER: Decompressed limiting evaluation. GASTROINTESTINAL TRACT: No evidence of bowel obstruction, significant free fluid, free air or abscess . Mild distal colonic diverticulosis. APPENDIX: Normal appendix. LYMPH NODES: No lymphadenopathy. MUSCULOSKELETAL: No acute or suspicious osseous abnormality. Grade 1 anterolisthesis of L5 over S1 ADDITIONAL FINDINGS: None. IMPRESSION: Nonobstructing left renal calculi, and other incidental findings including colonic diverticulosis. No other acute or concerning abnormalities in the abdomen or pelvis, with evaluation limited by lack of IV contrast.
[2024-10-14 20:03] LABS: ALT/SGPT 28.0 U/L (13-56); AST/SGOT 19.0 U/L (15-37); Albumin 3.6 g/dL (3.4-5.0); Albumin/Globulin Ratio 1.1 (1.1-1.8); Alkaline Phosphatase 77.0 U/L (45-117); Anion Gap 10.4 mEq/L (5.0-15.0); BUN Blood Urea Nitrogen 17.0 mg/dL (7-18); Globulin 3.4 g/dL (2.3-3.5); Glucose Level 116.0 mg/dL (74-106); Lipase 39.0 U/L (13-75); Potassium 3.4 mEq/L (3.5-5.1)
[2024-10-14 20:22] LABS: White Blood Cell Scan OK (OK)
[2024-10-14 20:23] LABS: Anisocytosis 2+; Blood Morphology Comment NOTED (NOT SEEN); Microcytosis 1+
--- NOTE | 2024-10-14 20:49 | ER ---
Nurse's Notes [facility] Name: Blanka Parker Age: 79 yrs Sex: Female : 1945 Arrival Date: 10/14/2024 Time: 17:21 Bed 4 Private MD: Diagnosis: Abdominal tenderness;Calculus of kidney Presentation: 10/14 17:44 Chief complaint: Patient states: had flu and bronchitis 2 weeks ago and during a me1 coughing spell she felt like something tore in her LUQ. Pain to LUQ has worsened and patient feels "a knot" where the pain is. Denies fever. Denies n/v/d. Coronavirus screen: Vaccine status: Patient reports being unvaccinated. Ebola Screen: No symptoms or risks identified at this time. Initial Sepsis Screen: Does the patient meet any 2 criteria? HR > 90 bpm. Does the patient have a suspected source of infection? No. Patient's initial sepsis screen is negative. Risk Assessment: Do you want to hurt yourself or someone else? Patient reports no desire to harm self or others. Onset of symptoms is unknown. 17:44 [place] Of [place] [facility] [place] Acuity: PETEY 3 me1 Triage Assessment: 19:17 General: Appears in no apparent distress. Behavior is calm, cooperative, appropriate km10 for age. Pain: Complains of pain in left upper quadrant Quality of pain is described as "like I popped/strained something" Pain began gradually. GI: Reports upper abdominal pain, constipation, since 3 weeks ago Patient currently denies diarrhea, nausea, vomiting. Historical: - Allergies: 17:49 Codeine; me1 17:49 COLLAGENASE; me1 17:49 Demerol; me1 17:49 hydromorphone; me1 17:49 Lidocaine; me1 17:49 PENICILLINS; me1 17:49 Sulfa (Sulfonamide Antibiotics); me1 17:49 venlafaxine; me1 17:49 Zanaflex; me1 - PMHx: 17:49 Anxiety; degenerative joint disease; Diverticulitis; GERD; High Cholesterol; me1 Hypertension; - PSHx: 17:49 Appendectomy; back; bladder sling; Cholecystectomy; hysterectomy; neck fusion X 2; me1 Right hip; - Immunization history:: Adult Immunizations up to date. - Infectious Disease History:: Denies. - Social history:: Smoking status: Patient reports the use of cigarette tobacco products, smokes one-half pack cigarettes per day. Screenin:19 [facility] ED Fall Risk Assessment (Adult) History of falling in the last 3 months, km10 including since admission No falls in past 3 months (0 pts) Confusion or Disorientation No (0 pts) Intoxicated or Sedated No (0 pts) Impaired Gait No (0 pts) Mobility Assist Device Used No (0 pt) Altered Elimination No (0 pt) Score/Fall Risk Level 0 - 2 = Low Risk Oriented to surroundings, Maintained a safe environment, Hourly rounding (assess needs \\T\\ fall precautionary measures) done. Abuse screen: Denies threats or abuse. Denies injuries from another. Nutritional screening: No deficits noted. Tuberculosis screening: No symptoms or risk factors identified. Assessment: 20:45 GI: Bowel sounds present X 4 quads. Abd is soft and non tender. km10 20:49 Reassessment: Patient appears in no apparent distress at this time. Patient and/or km10 family updated on plan of care and expected duration. Pain level reassessed. Patient is alert, oriented x 3, equal unlabored respirations, skin warm/dry/pink. Vital Signs: 17:44 BP 118 / 68; Pulse 92; Resp 17; Temp 98.4; Pulse Ox 99% ; Weight 77.11 kg; Height 5 ft. me1 2 in. ; Pain 9/10; 19:27 BP 127 / 69; Pulse 74; Resp 16; Pulse Ox 99% on R/A; km10 17:44 Body Mass Index 31.09 (77.11 kg, 157.48 cm) me1 17:44 Pain Scale: Adult me1 Gama Coma Score: 19:27 Eye Response: spontaneous(4). Motor Response: obeys commands(6). Verbal Response: km10 oriented(5). Total: 15. ED Course: 17:24 Patient arrived in ED. im 17:28 Balwinder Danielle NP is PHCP. cr8 17:28 Alda Ware MD is Attending Physician. cr8 17:49 Triage completed. me1 17:49 Arm band placed on Patient placed in waiting room. me1 18:29 CT Abd/Pelvis - Without Contrast In Process Unspecified. EDMS 19:03 Yvonne Martinez, RN is Primary Nurse. km10 19:19 Patient has correct armband on for positive identification. Bed in low position. Call km10 light in reach. Side rails up X2. Provided Education on: plan of care. Door closed. 19:28 Lipase Sent. km10 19:28 CMP Sent. km10 19: CBC with Diff Sent. km10 20:54 IV discontinued, intact, bleeding controlled, No redness/swelling at site. Pressure km10 dressing applied. 20:55 No provider procedures requiring assistance completed. km10 Administered Medications: 19:45 Drug: Ketorolac IM 15 mg IM once Route: IM; Site: right deltoid; km10 20:19 Follow up: Response: No adverse reaction km10 19:45 Drug: Acetaminophen PO 1000 mg PO once Route: PO; km10 20:19 Follow up: Response: No adverse reaction km10 Medication: 20:55 VIS not applicable for this client. km10 Outcome: 20:49 Discharge ordered by . [email or web address] 20:54 Discharged to home ambulatory, km10 20:54 Condition: stable 20:54 Discharge instructions given to patient, Instructed on discharge instructions, follow up and referral plans. Demonstrated understanding of instructions, follow-up care, 20:55 Patient left the ED. km10 Signatures: Dispatcher [employer] EDWY Elida Ferris Michelle, RN RN me1 Balwinder Danielle NP [employer] EXECUTIVE DIRECTOR cr8 Yvonne Martinez, RN RN km10
--- NOTE | 2024-10-14 20:49 | EDPHYS ---
Physician Documentation [facility] Name: Blanka Parker Age: 79 yrs Sex: Female : 1945 Arrival Date: 10/14/2024 Time: 17:21 Bed 4 Private MD: ED Physician Alda Ware HPI: 10/14 20:42 This 79 yrs old Female presents to ER via Ambulatory with complaints of Abdominal Pain. cr8 20:42 Patient is a 79-year-old female that comes emergency room complaining left upper cr8 abdominal pain for several weeks. Reports she has been coughing recently and believes she may have pulled something. She denies nausea vomiting diarrhea. She does not have any dysuria hematuria. No chest pain dyspnea reported. Reports the pain is worse with touching the skin and certain movements.. Historical: - Allergies: 17:49 Codeine; me1 17:49 COLLAGENASE; me1 17:49 Demerol; me1 17:49 hydromorphone; me1 17:49 Lidocaine; me1 17:49 PENICILLINS; me1 17:49 Sulfa (Sulfonamide Antibiotics); me1 17:49 venlafaxine; me1 17:49 Zanaflex; me1 - PMHx: 17:49 Anxiety; degenerative joint disease; Diverticulitis; GERD; High Cholesterol; me1 Hypertension; - PSHx: 17:49 Appendectomy; back; bladder sling; Cholecystectomy; hysterectomy; neck fusion X 2; me1 Right hip; - Immunization history:: Adult Immunizations up to date. - Infectious Disease History:: Denies. - Social history:: Smoking status: Patient reports the use of cigarette tobacco products, smokes one-half pack cigarettes per day. ROS: 20:42 Constitutional: as per HPI cr8 Exam: 19:00 Constitutional: This is a well developed, well nourished patient who is awake, alert, cr8 and in no acute distress. Cardiovascular: Regular rate and rhythm with a normal S1 and S2. No gallops, murmurs, or rubs. Respiratory: Lungs have equal breath sounds bilaterally, clear to auscultation. No rales, rhonchi or wheezes noted. No increased work of breathing. Abdomen/GI: Soft, tenderness to the left upper quadrant, with normal bowel sounds. No distension. No guarding or rebound. There is no rash, ecchymosis, warmth or erythema. Palpated the patient's lower ribs and there is no pain in that area. There is no crepitus. On exam there is no evidence of masses when palpating the abdomen. Skin: Warm, dry with normal turgor. Normal color with no rashes, no lesions, and no evidence of cellulitis. Neuro: Awake and alert, GCS 15, oriented to person, place, time, and situation. Cranial nerves II-XII grossly intact. Motor strength 5/5 in all extremities. Sensory grossly intact. 19:00 Special observations: Went in the room to reevaluate the patient. She is sitting up in cr8 bed and appears comfortable. She is in no acute distress. Discussed results. Vital signs are stable. States she is relieved with the good news., Vital Signs: 17:44 BP 118 / 68; Pulse 92; Resp 17; Temp 98.4; Pulse Ox 99% ; Weight 77.11 kg; Height 5 ft. me1 2 in. ; Pain 9/10; 19:27 BP 127 / 69; Pulse 74; Resp 16; Pulse Ox 99% on R/A; km10 17:44 Body Mass Index 31.09 (77.11 kg, 157.48 cm) me1 17:44 Pain Scale: Adult me1 Gama Coma Score: 19:27 Eye Response: spontaneous(4). Motor Response: obeys commands(6). Verbal Response: km10 oriented(5). Total: 15. MDM: 17:45 Medical Screening Exam initiated cr8 19:00 Data reviewed: vital signs, nurses notes, lab test result(s), amylase and lipase, CBC, cr8 electrolytes, hepatic panel, radiologic studies, CT scan. 19:00 ED course: Abdominal exam without peritoneal signs. No evidence of acute abdomen at cr8 this time. Well appearing. Given work up have low suspicion for acute hepatobiliary disease (including acute cholecystitis or cholangitis), upper GI bleed, acute pancreatitis, gastric perforation, acute infectious processes (pneumonia, hepatitis, pyelonephritis), atypical appendicitis, vascular catastrophe, bowel obstruction or viscus perforation. 20:52 ED course: Abdominal exam without peritoneal signs. No evidence of acute abdomen at cr8 this time. Well appearing. Given work up have low suspicion for acute hepatobiliary disease (including acute cholecystitis or cholangitis), upper GI bleed, acute pancreatitis, gastric perforation, acute infectious processes (pneumonia, hepatitis, pyelonephritis), atypical appendicitis, vascular catastrophe, bowel obstruction or viscus perforation. Consider herpes zoster on examination there is no evidence of a vesicular rash. We did a lipase which is unremarkable. CT abdomen pelvis did not show any acute abnormalities. It showed a kidney stone which was inside the kidney not causing hydronephrosis so do not suspect this is the cause to her pain. Her presentation is likely consistent with a muscle strain given that she has been coughing and the pain is worse with movements straining and coughing. Considered acute coronary syndrome but the patient's had no chest pain dyspnea. The upper abdominal exam was significant with tenderness and her pain is not associated with exertion so do not suspect acute coronary syndrome therefore did not do EKG troponin. Patient was reevaluated multiple times and she was stable. She was visualized ambulating to the restroom without any discomfort. She will be discharged with symptomatic treatment.. 10/14 18:13 Order name: CBC with Diff; Complete Time: 20:41 cr8 10/14 18:13 Order name: CMP; Complete Time: 20:05 cr8 10/14 18:13 Order name: Lipase; Complete Time: 20:05 cr8 10/14 19:56 Order name: CBC Smear Scan; Complete Time: 20:41 EDMS 10/14 18:13 Order name: CT Abd/Pelvis - Without Contrast; Complete Time: 19:58 cr8 Administered Medications: 19:45 Drug: Ketorolac IM 15 mg IM once Route: IM; Site: right deltoid; km10 20:19 Follow up: Response: No adverse reaction [facility] 19:45 Drug: Acetaminophen PO 1000 mg PO once Route: PO; km10 20:19 Follow up: Response: No adverse reaction 10 Disposition Summary: 10/14/24 20:49 Discharge Ordered Notes: Location: Home cr8 Condition: Stable cr8 Diagnosis - Abdominal tenderness cr8 - Calculus of kidney cr8 Followup: cr8 - With: Private Physician - When: 2 - 3 days - Reason: Recheck today's complaints, Re-evaluation by your physician Followup: cr8 - With: Emergency Department - When: As needed - Reason: Worsening of condition, Worsening abdominal pain, chest pain, trouble breathing fever or any other concerns Discharge Instructions: - Discharge Summary Sheet cr8 - Abdominal Pain, Adult cr8 - Kidney Stones cr8 Forms: - Medication Reconciliation Form cr8 - Patient Portal Instructions cr8 - Leadership Thank You Letter cr8 Signatures: Dispatcher [employer] Maria C Ellington, RN RN me1 Balwinder Danielle NP CONSULTING TECHNICAL MANAGER cr8 Yvonne Martinez RN RN km10 Corrections: (The following items were deleted from the chart) 18:13 18:13 Abdomen Pelvis Wo Con+CT.RAD.BRZ ordered. EDMS EDMS
[2024-10-14 21:27] VITALS: TEMP 98.4; O2SAT 99
[2024-10-14 21:28] VITALS: BP 127/69
== END 2024-10-14 20:55 | disposition home or self-care (01) ==
LOC: ER 17:21
DX: N20.0 Calculus of kidney (principal); F17.210 Nicotine dependence, cigarettes, uncomplicated
CPT/HCPCS: 36415; 74176; 80053; 83690; 85025; 96372; 99284

== ENCOUNTER 2024-12-26 16:55 | Emergency (ER) | payer OTHER ==
[2024-12-26] MEDS ORDERED: predniSONE 20 MG TAB ONE (17:42)
[2024-12-26] MEDS ORDERED: METHYLPREDNISOLONE 125 MG INJ ONE (17:42)
[2024-12-26] MEDS ORDERED: FAMOTIDINE 20 MG/2 ML VIAL IV ONE (17:43)
[2024-12-26] MEDS ORDERED: NA CHLORIDE 0.9% 500 ML ONE (17:43)
[2024-12-26] MEDS ORDERED: DIPHENHYDRAMINE 50 MG/ML VIAL ONE (17:43)
[2024-12-26] MEDS ORDERED: ALBUTEROL 2.5 MG/3 ML NEB SOL ONE (18:06)
[2024-12-26] MEDS ORDERED: IPRATROPIUM BROM 0.5MG/2.5ML ONE (18:06)
[2024-12-26 18:27] LABS: ALT/SGPT 18.0 U/L (13-56); AST/SGOT 13.0 U/L (15-37); Absolute Lymphocytes (CBC) 1.7 K/uL (0.7-4.9); Albumin 3.2 g/dL (3.4-5.0); Albumin/Globulin Ratio 0.9 (1.1-1.8); Alkaline Phosphatase 82.0 U/L (45-117); Anion Gap 7.6 mEq/L (5.0-15.0); BUN Blood Urea Nitrogen 17.0 mg/dL (7-18); Globulin 3.4 g/dL (2.3-3.5); Glucose Level 112.0 mg/dL (74-106); Hematocrit 34.2 % (36.0-45.0); Hemoglobin 11.8 g/dL (12.0-15.0); MCH 28.9 pg (27.0-35.0); MCHC 34.3 g/dL (32.0-36.0); MCV 84.0 fL (80-100); MPV 8.2 fL (7.6-11.3); Nucleated RBC Absolute Count 0.0 (0-0); Nucleated Red Blood Cells % 0.1 % (0-0); Potassium 3.6 mEq/L (3.5-5.1); RBC Red Blood Cell Count 4.07 M/uL (3.86-4.86); White Blood Count 6.10 thou/uL (4.3-10.9)
--- NOTE | 2024-12-26 19:01 | EDPHYS ---
Physician Documentation [facility] Name: Blanka Parker Age: 79 yrs Sex: Female : 1945 Arrival Date: 12/26/2024 Time: 16:55 Bed 14 Private MD: PAVAN Physician Stevan Saucedo HPI: 12/26 18:01 This 79 yrs old Female presents to ER via Ambulatory with complaints of Ear sawyer Pain, Facial Swelling. 18:01 The patient presents with pain, swelling, tenderness. The complaints affect the right sawyer cheek, right ear and right jaw. Onset: The symptoms/episode began/occurred 2 day(s) ago. Modifying factors: The symptoms are alleviated by nothing, the symptoms are aggravated by nothing. Associated signs and symptoms: The patient has no apparent associated signs or symptoms. Severity of symptoms: At their worst the symptoms were mild in the emergency department the symptoms are unchanged. The patient has not experienced similar symptoms in the past. Historical: - Allergies: 17:22 Codeine; me1 17:22 COLLAGENASE; me1 17:22 Demerol; me1 17:22 hydromorphone; me1 17:22 Lidocaine; me1 17:22 PENICILLINS; me1 17:22 Sulfa (Sulfonamide Antibiotics); me1 17:22 venlafaxine; me1 17:22 Zanaflex; me1 17:22 [id number]-[id number] Reductase Inhibitors; me1 - PMHx: 17:22 Anxiety; degenerative joint disease; Diverticulitis; GERD; High Cholesterol; me1 Hypertension; - PSHx: 17:22 Appendectomy; bladder sling; back; hysterectomy; Cholecystectomy; Right hip; neck me1 fusion X 2; - Immunization history:: Adult Immunizations up to date. - Infectious Disease History:: Denies. - Social history:: Smoking status: Patient reports the use of cigarette tobacco products, denies chronic smoking, but will smoke occasionally. ROS: 18:02 Constitutional: Negative for fever, chills, and weight loss, Eyes: Negative for injury, sawyer pain, redness, and discharge, Neck: Negative for injury, pain, and swelling, Cardiovascular: Negative for chest pain, palpitations, and edema, Abdomen/GI: Negative for abdominal pain, nausea, vomiting, diarrhea, and constipation, Back: Negative for injury and pain, : Negative for injury, bleeding, discharge, and swelling, MS/Extremity: Negative for injury and deformity, Skin: Negative for injury, rash, and discoloration, Neuro: Negative for headache, weakness, numbness, tingling, and seizure, Psych: Negative for depression, anxiety, suicide ideation, homicidal ideation, and hallucinations, Allergy/Immunology: Negative for hives, rash, and allergies, Endocrine: Negative for neck swelling, polydipsia, polyuria, polyphagia, and marked weight changes, Hematologic/Lymphatic: Negative for swollen nodes, abnormal bleeding, and unusual bruising, 18:02 Respiratory: Positive for cough, wheezing, expiratory, 18:57 : Negative for urinary symptoms, urinary frequency, hematuria, burning with sawyer urination, Exam: 18:02 Constitutional: This is a well developed, well nourished patient who is awake, alert, sawyer and in no acute distress. Head/Face: Normocephalic, atraumatic. Eyes: Pupils equal round and reactive to light, extra-ocular motions intact. Lids and lashes normal. Conjunctiva and sclera are non-icteric and not injected. Cornea within normal limits. Periorbital areas with no swelling, redness, or edema. Neck: Trachea midline, no thyromegaly or masses palpated, and no cervical lymphadenopathy. Supple, full range of motion without nuchal rigidity, or vertebral point tenderness. No Meningismus. Chest/axilla: Normal chest wall appearance and motion. Nontender with no deformity. No lesions are appreciated. Cardiovascular: Regular rate and rhythm with a normal S1 and S2. No gallops, murmurs, or rubs. Normal PMI, no JVD. No pulse deficits. Abdomen/GI: Soft, non-tender, with normal bowel sounds. No distension or tympany. No guarding or rebound. No evidence of tenderness throughout. Back: No spinal tenderness. No costovertebral tenderness. Full range of motion. Female : Normal external genitalia. Skin: Warm, dry with normal turgor. Normal color with no rashes, no lesions, and no evidence of cellulitis. MS/ Extremity: Pulses equal, no cyanosis. Neurovascular intact. Full, normal range of motion., bilateral aka Neuro: Awake and alert, GCS 15, oriented to person, place, time, and situation. Cranial nerves II-XII grossly intact. Motor strength 5/5 in all extremities. Sensory grossly intact. Cerebellar exam normal. Normal gait. Psych: Awake, alert, with orientation to person, place and time. Behavior, mood, and affect are within normal limits. 18:02 ENT: Mouth: Oral mucosa: normal, Gums: normal with healthy appearance, Tongue: is normal, 18:02 ECG was reviewed by the Attending Physician. 18:02 Respiratory: the patient does not display signs of respiratory distress, Respirations: normal, Breath sounds: bronchial sounds, that are mild, decreased breath sounds, that are mild, are scattered, rhonchi, that are mild, stridor, is not appreciated, Respiratory rate: 80 18:23 Musculoskeletal/extremity: DVT Exam: No signs of deep vein thrombosis. no pain, no sawyer swelling, no tenderness, negative Homans' sign noted on exam, no appreciated bluish discoloration, no erythema, no increased warmth, 18:57 Abdomen/GI: Inspection: abdomen appears normal, Bowel sounds: normal, Palpation: sawyer nontender, Liver: no appreciated palpable abnormalities, Hernia: not appreciated, 18:57 Musculoskeletal/extremity: ROM: no acute changes, intact in all extremities, full active range of motion, full passive range of motion, Circulation is intact in all extremities. Sensation intact. Compartment Syndrome exam of affected extremity: is normal. Weight bearing: able to fully bear weight, Tendon exam: specific tendon testing normal through active and passive range of motion Vital Signs: 17:19 BP 122 / 66; Pulse 80; Resp 18; Temp 98.1; Pulse Ox 98% ; Weight 77.11 kg; Height 5 ft. me1 2 in. ; Pain 3/10; 20:20 BP 141 / 59; Pulse 84; Resp 18; Pulse Ox 99% on R/A; af3 17:19 Body Mass Index 31.09 (77.11 kg, 157.48 cm) me1 17:19 Pain Scale: Adult me1 MDM: 17:08 Medical Screening Exam initiated sawyer 18:22 Data reviewed: vital signs, nurses notes, lab test result(s), EKG, radiologic studies, sawyer plain films. Consideration of Admission/Observation Escalation of care including admission/observation considered. I considered the following discharge prescriptions or medication management in the emergency department Medications were administered in the Emergency Department. See MAR. Independent interpretation of the following test(s) in the Emergency Department EKG: See my EKG interpretation above. Test considered but Not performed: Ultrasound NO 2 ECHO. Historians other than the Patient: PT WELL INFORMED. Care significantly affected by the following chronic conditions: Hypertension, Obesity, GERD, DIVERTICULITIS. Counseling: I had a detailed discussion with the patient and/or guardian regarding the historical points, exam findings, and any diagnostic results supporting the discharge/admit diagnosis, lab results, radiology results, the need for outpatient follow up, for definitive care, a bulb grower, a family practitioner. 12/26 17:12 Order name: CBC with Diff; Complete Time: 18:43 [facility] 12/26 17:12 Order name: CMP; Complete Time: 18:43 [facility] 12/26 17:12 Order name: UA Rfx Jono Cult if indicated [facility] 12/26 18:01 Order name: CT Facial Bones W/O Con sawyer Administered Medications: 18:05 Drug: NS 0.9% IV 500 ml IV at bolus once; to be given as a bolus over 30 minutes Route: hb IV; Rate: bolus; Site: left antecubital; 18:35 Follow up: IV Status: Completed infusion; IV Intake: 500ml ap3 18:05 Not Given ( cancel, per MD): [id number] mg IVP once hb 18:05 Drug: Famotidine IVP 20 mg IVP once; dilute with 10 mL 0.9% NaCl; give over 2 minutes hb Route: IVP; Site: left antecubital; 20:19 Follow up: Response: No adverse reaction af3 18:05 Drug: MethylPrednisoLONE IVP 125 mg IVP once Route: IVP; Site: left antecubital; hb 20:19 Follow up: Response: No adverse reaction af3 18:05 Drug: predniSONE PO 60 mg PO once Route: PO; hb 20:19 Follow up: Response: No adverse reaction af3 18:12 Drug: Levalbuterol Inhalation 2.5 mg Inhalation once Route: Inhalation; hb 18:35 Follow up: Response: No adverse reaction ap3 18:12 Drug: Ipratropium Inhalation Aerosol 0.5 mg Inhalation once Route: Inhalation; hb 18:35 Follow up: Response: No adverse reaction ap3 19:29 Not Given (medication not available in hospital, will take with prescription ): af3 ciprodexdrops 4 drops Otic once 19:36 Drug: Cephalexin PO 500 mg PO once Route: PO; af3 20:19 Follow up: Response: No adverse reaction af3 19:37 Drug: Rocephin IV 1 grams IV at per protocol once; Given slow IV push per pharmacy af3 instructions Route: IV; Rate: per protocol; Site: left antecubital; 20:19 Follow up: Response: No adverse reaction; IV Status: Completed infusion; IV Intake: af3 100ml Disposition Summary: 12/26/24 19:00 Discharge Ordered Notes: Location: Home sawyer Problem: new sawyer Symptoms: have improved sawyer Condition: Stable sawyer Diagnosis - Disease of salivary gland, unspecified - PAROTITIS sawyer - Cough sawyer - Tobacco abuse counseling sawyer - Tobacco use sawyer - Other otitis externa, right ear sawyer Followup: sawyer - With: Private Physician - When: 2 - 3 days - Reason: Recheck today's complaints, Continuance of care, Re-evaluation by your physician Followup: sawyer - With: Madalyn Harrison MD - When: 2 - 3 days - Reason: Recheck today's complaints, Re-evaluation by your physician Discharge Instructions: - Discharge Summary Sheet sawyer - Otitis Externa sawyer - Parotitis sawyer - Steps to Quit Smoking sawyer - Health Risks of Smoking sawyer - Cool Mist Vaporizer sawyer - Otitis Externa, Tnpc-lw-[id number] sawyer - Steps to Quit Smoking, Tfqw-cp-Nddb sawyer - Parotitis, Pxcg-xc-Ompm sawyer - Cough, Adult, Jibs-jf-Zdbb sawyer - Cough, Adult [facility] Forms: - Medication Reconciliation Form sawyer - Antibiotic Education sawyer - Prescription Opioid Use sawyer - Patient Portal Instructions [facility] - Leadership Thank You Letter [facility] Prescriptions: - albuterol sulfate 90 mcg/actuation Inhalation HFA Aerosol Inhaler - inhale 2 puff INHALATION route every 4 to 6 hours as needed for shortness of sawyer breath or wheezing; 2 unit; Refills: 0, Product Selection Permitted - Cephalexin 500 mg Oral Capsule - take 1 capsule ORAL route every 6 hours for 10 days; 40 capsule; Refills: 0, [facility] Product Selection Permitted - Claritin 10 mg Oral Tablet - take 1 tablet ORAL route once daily As needed; 30 tablet; Refills: 0, Product sawyer Selection Permitted - Prednisone 20 mg Oral tablet - take 2 tablets ORAL route once daily for 4 days; 8 tablet; Refills: 0, Product sawyer Selection Permitted - Ciprodex 0.3-0.1 % Otic drops, suspension - instill 4 drops OTIC route every 12 hours for 7 days RIGHT EAR ONLY; 7.5 drop; sawyer Refills: 0, Product Selection Permitted Signatures: Dispatcher [employer] EDStevan Morales MD MD cha Baxter, Heather, RN RN Maria C Rubio RN RN me1 Barbie Daniel RN RN af3 Ivis Gonzalez RN ap3 Corrections: (The following items were deleted from the chart) 17:13 17:13 CBC+H.LAB.BRZ ordered. EDMS EDMS 17:13 17:13 COMPREHENSIVE METABOLIC PANEL+C.LAB.BRZ ordered. EDMS EDMS 17:13 17:13 UA Rfx Jono Cult if indicated+U.LAB.BRZ ordered. EDMS EDMS
--- NOTE | 2024-12-26 19:01 | ER ---
Nurse's Notes [facility] Name: Blanka Parker Age: 79 yrs Sex: Female : 1945 Arrival Date: 12/26/2024 Time: 16:55 Bed 14 Private MD: Diagnosis: Disease of salivary gland, unspecified-PAROTITIS;Cough;Tobacco abuse counseling;Tobacco use;Other otitis externa, right ear Presentation: 12/26 17:19 Chief complaint: Patient states: R ear pain with swelling to right face and jaw that me1 started today. Also reports that she has been taking levofloxacin for a cough and her tongue is tender when she eats. concerned she has thrush. Coronavirus screen: At this time, the client does not indicate any symptoms associated with coronavirus-19. Ebola Screen: No symptoms or risks identified at this time. 17:19 Method Of Arrival: Amb[place] [facility] 17:22 Initial Sepsis Screen: Does the patient meet any 2 criteria? No. Patient's initial [facility] sepsis screen is negative. Does the patient have a suspected source of infection? No. Patient's initial sepsis screen is negative. Risk Assessment: Do you want to hurt yourself or someone else? Patient reports no desire to harm self or others. Onset of symptoms was December 26, 2024 at 11:30. 17:22 Acuity: PETEY 3 va1 Triage Assessment: 18:49 General: Appears in no apparent distress. Behavior is calm, cooperative, appropriate ap3 for age. Pain: Complains of pain in right jaw and right ear and right cheek. Neuro: Level of Consciousness is awake, alert, obeys commands, Oriented to person, place, time, situation, Appropriate for age. Cardiovascular: Patient's skin is warm and dry. Respiratory: Airway is patent Respiratory effort is even, unlabored, Respiratory pattern is regular, symmetrical. Musculoskeletal: Swelling present in right jaw and right cheek. Historical: - Allergies: 17:22 Codeine; me1 17:22 COLLAGENASE; me1 17:22 Demerol; me1 17:22 hydromorphone; me1 17:22 Lidocaine; me1 17:22 PENICILLINS; me1 17:22 Sulfa (Sulfonamide Antibiotics); me1 17:22 venlafaxine; me1 17:22 Zanaflex; me1 17:22 Saaadlo-PBJ-IpV Reductase Inhibitors; me1 - PMHx: 17:22 Anxiety; degenerative joint disease; Diverticulitis; GERD; High Cholesterol; me1 Hypertension; - PSHx: 17:22 Appendectomy; bladder sling; back; hysterectomy; Cholecystectomy; Right hip; neck me1 fusion X 2; - Immunization history:: Adult Immunizations up to date. - Infectious Disease History:: Denies. - Social history:: Smoking status: Patient reports the use of cigarette tobacco products, denies chronic smoking, but will smoke occasionally. Screenin:48 [facility] ED Fall Risk Assessment (Adult) History of falling in the last 3 months, ap3 including since admission No falls in past 3 months (0 pts) Confusion or Disorientation No (0 pts) Intoxicated or Sedated No (0 pts) Impaired Gait No (0 pts) Mobility Assist Device Used No (0 pt) Altered Elimination No (0 pt) Score/Fall Risk Level 0 - 2 = Low Risk Oriented to surroundings, Maintained a safe environment, Educated pt \T\ family on fall prevention, incl call for assistance when getting out of bed, Assessed \T\ reinforced patient's understanding of fall precautions, Hourly rounding (assess needs \T\ fall precautionary measures) done, Used ambulatory aids as needed (educated on \T\ assisted with). Abuse screen: Denies threats or abuse. Nutritional screening: No deficits noted. Tuberculosis screening: No symptoms or risk factors identified. Assessment: 18:48 Reassessment: Patient and/or family updated on plan of care and expected duration. Pain ap3 level reassessed. Patient is alert, oriented x 3, equal unlabored respirations, skin warm/dry/pink. 19:05 Reassessment: Discharge pending UA results. af3 Vital Signs: 17:19 BP 122 / 66; Pulse 80; Resp 18; Temp 98.1; Pulse Ox 98% ; Weight 77.11 kg; Height 5 ft. me1 2 in. ; Pain 3/10; 20:20 BP 141 / 59; Pulse 84; Resp 18; Pulse Ox 99% on R/A; af3 17:19 Body Mass Index 31.09 (77.11 kg, 157.48 cm) me1 17:19 Pain Scale: Adult va1 ED Course: 16:59 Patient arrived in ED. cj3 17:08 Stevan Saucedo MD is Attending Physician. sawyer 17:22 Triage completed. me1 17:22 Arm band placed on Patient placed in an exam room. me1 17:24 Ivis Gonzalez, SCOTTIE is Primary Nurse. ap3 18:05 CMP Sent. hb 18:05 CBC with Diff Sent. hb 18:05 Inserted saline lock: 20 gauge in left antecubital area, using aseptic technique. Blood hb collected. Flushed with 10 mL NS. 18:43 CT Facial Bones W/O Con In Process Unspecified. EDMS 18:49 No provider procedures requiring assistance completed. ap3 19:00 Madalyn Harrison MD is Referral Physician. [facility] 19:00 Report received from SCOTTIE Langston. af3 19:20 Patient has correct armband on for positive identification. Bed in low position. Call af3 light in reach. 19:20 Provided Education on: plan of care . af3 19:20 IV discontinued, intact, bleeding controlled, No redness/swelling at site. Pressure af3 dressing applied. Administered Medications: 18:05 Drug: NS 0.9% IV 500 ml IV at bolus once; to be given as a bolus over 30 minutes Route: hb IV; Rate: bolus; Site: left antecubital; 18:35 Follow up: IV Status: Completed infusion; IV Intake: 500ml ap3 18:05 Not Given ( cancel, per MD): [id number] mg IVP once hb 18:05 Drug: Famotidine IVP 20 mg IVP once; dilute with 10 mL 0.9% NaCl; give over 2 minutes hb Route: IVP; Site: left antecubital; 20:19 Follow up: Response: No adverse reaction af3 18:05 Drug: MethylPrednisoLONE IVP 125 mg IVP once Route: IVP; Site: left antecubital; hb 20:19 Follow up: Response: No adverse reaction af3 18:05 Drug: predniSONE PO 60 mg PO once Route: PO; hb 20:19 Follow up: Response: No adverse reaction af3 18:12 Drug: Levalbuterol Inhalation 2.5 mg Inhalation once Route: Inhalation; hb 18:35 Follow up: Response: No adverse reaction ap3 18:12 Drug: Ipratropium Inhalation Aerosol 0.5 mg Inhalation once Route: Inhalation; hb 18:35 Follow up: Response: No adverse reaction ap3 19:29 Not Given (medication not available in hospital, will take with prescription ): af3 ciprodexdrops 4 drops Otic once 19:36 Drug: Cephalexin PO 500 mg PO once Route: PO; af3 20:19 Follow up: Response: No adverse reaction af3 19:37 Drug: Rocephin IV 1 grams IV at per protocol once; Given slow IV push per pharmacy af3 instructions Route: IV; Rate: per protocol; Site: left antecubital; 20:19 Follow up: Response: No adverse reaction; IV Status: Completed infusion; IV Intake: af3 100ml Medication: 19:20 VIS not applicable for this client. af3 Intake: 18:35 IV: 500ml; Total: 500ml. ap3 20:19 IV: 100ml; Total: 600ml. af3 Outcome: 19:00 Discharge ordered by . sawyer 20:21 Discharged to home ambulatory, af3 20:21 Condition: stable 20:21 Discharge instructions given to patient, Instructed on discharge instructions, follow up and referral plans. medication usage, Demonstrated understanding of instructions, follow-up care, medications, Prescriptions given X 5 20:22 Patient left the ED. af3 Signatures: Dispatcher [employer] EDStevan Morales MD MD cha Baxter, Heather, RN RN hb Prokisch, Amanda, RN RN ap3 Maria C Rubio RN RN vaBarbie Claros RN RN af3 Vanessa Vasquez 3
--- NOTE | 2024-12-26 19:02 | RAD REPORT ---
EXAMINATION: CT MAXILLOFACIAL WITHOUT CONTRAST CLINICAL INDICATION: [facility] MAIN PAIN Bed Name: 14 TECHNIQUE: Axial images were obtained through the facial bones and orbits without intravenous contras t. Sagittal and coronal reconstructions were created from the data. One or more of the following dose reduction techniques were used: Automated exposure control, adjustment of the mA and/or kV accor ding to patient size, and/or iterative reconstruction. Unless otherwise specified, incidental findings do not require dedicated imaging follow-up. COMPARISON: No prior exam. FINDINGS: SOFT TISSUE: Asymmetric enlargement with adjacent fat stranding and platysma thickening of the right superficial parotid lobe. 2 foci of calcification measuring up to 3 mm along the superficial parotid lobe. Mild skin thickening along the right external auditory canal. No evidence of discrete m asses or fluid collections within limits of noncontrast evaluation. No suspicious adenopathy although smaller right upper cervical lymph nodes are noted which are favored to be reactive. BONES: No evidence of fracture, dislocation, or aggressive osseous lesions. No lesion of the visuali zed skull base or calvarium. ORBITS: The globes are intact. No intraorbital hemorrhage or mass. SINUSES: The paranasal sinuses and tympanomastoid cavities are predominantly clear. IMPRESSION: Asymmetric swelling and inflammatory changes involving the right parotid gland suggesting acute sialo adenitis. 2 small calculi are seen within the superficial lobe. Adjacent skin thickening of the right external auditory canal may suggest otitis externa.
[2024-12-26] MEDS ORDERED: CEPHALEXIN 250 MG CAP ONE (19:19)
[2024-12-26] MEDS ORDERED: NA CHLORIDE 0.9% 100 ML ONE (19:19)
[2024-12-26] MEDS ORDERED: CEFTRIAXONE 1000 MG/VIAL ONE (19:19)
[2024-12-26 19:55] LABS: Urine Microscopic Reflex YN NO UMIC
[2024-12-27 02:02] VITALS: TEMP 98.1
[2024-12-27 02:07] VITALS: BP 141/59; O2SAT 99
== END 2024-12-26 20:22 | disposition home or self-care (01) ==
LOC: ER 16:55
DX: K11.20 Sialoadenitis, unspecified (principal); R05.9 Cough, unspecified; H60.8X1 Other otitis externa, right ear; Z72.0 Tobacco use; Z71.6 Tobacco abuse counseling
CPT/HCPCS: 96365; 85025; 36415; 81003; 80053; 70486; 76377; 96375; 99285; J7512; J1200; J7613; J7644; J2919; J7040; J0696

== ENCOUNTER 2024-12-27 00:46 | Observation (INO) | payer OTHER ==
[2024-12-27] MEDS ORDERED: SUCRALFATE 1 GM TABLET ONE (01:50)
[2024-12-27] MEDS ORDERED: PANTOPRAZOLE 40 MG INJ ONE (01:50)
[2024-12-27] MEDS ORDERED: FENTANYL CITR 100 MCG/2 ML ONE (01:50)
[2024-12-27] MEDS ORDERED: ONDANSETRON 4 MG/2 ML VIAL ONE (01:50)
[2024-12-27] MEDS ORDERED: DIAZEPAM 2 MG TABLET ONE (01:50)
[2024-12-27 02:23] LABS: PT Prothrombin Time 14.8 SECONDS (10-13.0); Protime INR 1.32
[2024-12-27 02:24] LABS: Absolute Lymphocytes (CBC) 0.5 K/uL (0.7-4.9); Hematocrit 33.2 % (36.0-45.0); Hemoglobin 11.4 g/dL (12.0-15.0); MCH 29.1 pg (27.0-35.0); MCHC 34.4 g/dL (32.0-36.0); MCV 84.5 fL (80-100); MPV 8.4 fL (7.6-11.3); Nucleated RBC Absolute Count 0.0 (0-0); Nucleated Red Blood Cells % 0.0 % (0-0); RBC Red Blood Cell Count 3.93 M/uL (3.86-4.86); White Blood Count 4.90 thou/uL (4.3-10.9)
[2024-12-27 02:40] LABS: ALT/SGPT 17 U/L (13-56); Albumin 3.3 g/dL (3.4-5.0); Albumin/Globulin Ratio 0.9 (1.1-1.8); Alkaline Phosphatase 80 U/L (45-117); Anion Gap 12.3 mEq/L (5.0-15.0); BUN Blood Urea Nitrogen 16 mg/dL (7-18); Globulin 3.5 g/dL (2.3-3.5); Glucose Level 260 mg/dL (74-106); Magnesium 1.6 mg/dL (1.6-2.4); NT PRO-BNP 327 pg/mL (<450); Potassium 3.3 mEq/L (3.5-5.1); Troponin High Sensitivity 5.1 pg/mL (<58.9)
[2024-12-27 02:41] LABS: AST/SGOT < 10 U/L (15-37); Bilirubin Indirect, Calculated 0.0 mg/dL (0.2-0.8)
--- NOTE | 2024-12-27 03:35 | RAD REPORT ---
EXAM: XR Chest, 1 View CLINICAL HISTORY: The patient is 79 years old and is Female; CHEST PAIN TECHNIQUE: Frontal view of the chest. COMPARISON: XR Chest dated December 01 2024 FINDINGS: LUNGS: Unremarkable. No consolidation. PLEURAL SPACE: Unremarkable. No pneumothorax. HEART: Unremarkable. No cardiomegaly. MEDIASTINUM: Unremarkable. Normal mediastinal contour. BONES/JOINTS: Multilevel degenerative change of the spine is present. No acute fracture. VASCULATURE: Atherosclerosis of the aorta is present. UPPER ABDOMEN: Unremarkable as visualized. IMPRESSION: No acute cardiopulmonary process. Electronically signed by: Jennifer Rich MD 12/27/2024 02:51 AM CDT RP Due to temporary technical issues with the [employer] reporting system, reports are being jonnie d by the in-house radiologist without review as a courtesy to ensure prompt reporting the interpreting radiologist is fully responsible for the content of the report. Transcribed Date/Time: 12/27/2024 3:35 AM
--- NOTE | 2024-12-27 03:46 | ER ---
Nurse's Notes [facility] Name: Blanka Parker Age: 79 yrs Sex: Female : 1945 Arrival Date: 12/27/2024 Time: 00:46 Bed 7 Private MD: Diagnosis: Unstable angina;Intermittent atrial fibrillation Presentation: 12/27 01:19 Chief complaint: Patient states: I was recently prescribed prednisone for an ear kd3 infection and i feel like it may have triggered my A Fib. I felt like my heart rate was sitting at about 120 for a few minutes. Coronavirus screen: Vaccine status: Patient reports being unvaccinated. Ebola Screen: No symptoms or risks identified at this time. Initial Sepsis Screen: Does the patient meet any 2 criteria? No. Patient's initial sepsis screen is negative. Does the patient have a suspected source of infection? No. Patient's initial sepsis screen is negative. Risk Assessment: Do you want to hurt yourself or someone else? Patient reports no desire to harm self or others. Onset of symptoms was December 27, 2024. 01:19 Method Of Arrival: Ambulatory kd3 01:19 Acuity: PETEY 3 kd3 Triage Assessment: 01:21 General: Appears in no apparent distress. Behavior is calm, cooperative. Pain: kd3 Complains of pain in chest. Neuro: Level of Consciousness is awake, alert, obeys commands, Oriented to person, place, time, situation. Cardiovascular: Capillary refill < 3 seconds Patient's skin is warm and dry. Respiratory: Airway is patent Trachea midline Respiratory effort is even, unlabored, Respiratory pattern is regular, symmetrical. Historical: - Allergies: 01:21 Codeine; kd3 01:21 COLLAGENASE; kd3 01:21 Demerol; kd3 01:21 hydromorphone; kd3 01:21 Lidocaine; kd3 01:21 Cuqtntf-Qzm-Qkw Reductase Inhibitors; kd3 01:21 PENICILLINS; kd3 01:21 venlafaxine; kd3 01:21 Zanaflex; kd3 01:21 Sulfa (Sulfonamide Antibiotics); kd3 - Home Meds: 04:13 amlodipine-olmesartan Oral [Active]; ss12 - PMHx: 01:21 Anxiety; Diverticulitis; degenerative joint disease; GERD; Hypertension; High kd3 Cholesterol; - PSHx: 01:21 Appendectomy; bladder sling; neck fusion X 2; Right hip; Cholecystectomy; back; kd3 hysterectomy; - Immunization history:: Adult Immunizations up to date. - Infectious Disease History:: Denies. - Social history:: Smoking status: Patient reports the use of cigarette tobacco products, smokes one-half pack cigarettes per day. - Family history:: not pertinent. Screenin:22 [facility] ED Fall Risk Assessment (Adult) History of falling in the last 3 months, kd3 including since admission No falls in past 3 months (0 pts) Confusion or Disorientation No (0 pts) Intoxicated or Sedated No (0 pts) Impaired Gait No (0 pts) Mobility Assist Device Used No (0 pt) Altered Elimination No (0 pt) Score/Fall Risk Level 0 - 2 = Low Risk Maintained a safe environment. Abuse screen: Denies threats or abuse. Denies injuries from another. Nutritional screening: No deficits noted. Tuberculosis screening: No symptoms or risk factors identified. Assessment: 01:43 General: Appears in no apparent distress. Behavior is calm, cooperative. Pain: kd3 Complains of pain in left scapular area and left subscapular area. Neuro: Level of Consciousness is awake, alert, obeys commands, Oriented to person, place, time, situation. Cardiovascular: Capillary refill < 3 seconds Patient's skin is warm and dry. Respiratory: Airway is patent Trachea midline Respiratory effort is even, unlabored, Respiratory pattern is regular, symmetrical. 03:00 Reassessment: Patient appears in no apparent distress at this time. Patient and/or ss12 family updated on plan of care and expected duration. Pain level reassessed. Patient is alert, oriented x 3, equal unlabored respirations, skin warm/dry/pink. 04:08 Reassessment: Patient appears in no apparent distress at this time. Patient and/or ss12 family updated on plan of care and expected duration. Pain level reassessed. Patient is alert, oriented x 3, equal unlabored respirations, skin warm/dry/pink. 05:12 Reassessment: Patient and/or family updated on plan of care and expected duration. Pain kd3 level reassessed. Patient is alert, oriented x 3, equal unlabored respirations, skin warm/dry/pink. Patient states feeling better. Patient states symptoms have improved. Vital Signs: 01:19 BP 143 / 69; Pulse 94; Resp 16; Temp 98.2(O); Pulse Ox 95% on R/A; kd3 01:43 BP 127 / 55; Pulse 93; Resp 16; Pulse Ox 97% on R/A; kd3 02:00 BP 160 / 69; Pulse 93; Resp 19; Pulse Ox 98% on R/A; ss12 03:00 BP 143 / 69; Pulse 88; Resp 18; Pulse Ox 97% on R/A; ss12 04:00 BP 131 / 68; Pulse 77; Resp 18; Pulse Ox 99% on R/A; ss12 05:12 BP 134 / 63; Pulse 79; Resp 16; Pulse Ox 99% on 2 lpm NC; kd3 Gama Coma Score: 05:07 Eye Response: spontaneous(4). Motor Response: obeys commands(6). Verbal Response: sp4 oriented(5). Total: 15. ED Course: 00:56 Patient arrived in ED. gm2 01:09 Johnny Anthony MD is Attending Physician. sp4 01:19 Génesis Brewer, SCOTTIE is Primary Nurse. kd3 01:21 Triage completed. kd3 01:21 Arm band placed on right wrist. kd3 01:23 Patient has correct armband on for positive identification. Provided Education on: EKG .kd3 01:23 EKG done, by ED staff, reviewed by Johnny Anthony MD. kd3 01:43 No provider procedures requiring assistance completed. Inserted saline lock: 20 gauge kd3 in right antecubital area, using aseptic technique. Blood collected. Flushed with 10 mL NS. 01:52 XRAY Chest (1 view) In Process Unspecified. EDMS 03:43 Ed Cortez MD is Hospitalizing Provider. sp4 Administered Medications: 02:27 Drug: Pantoprazole IVP 40 mg IVP once Route: IVP; Site: right antecubital; kd3 03:00 Follow up: Response: No adverse reaction ss12 02:27 Drug: Sucralfate PO 1 grams PO once Route: PO; kd3 03:00 Follow up: Response: No adverse reaction ss12 02:27 Drug: fentaNYL (PF) IVP 25 mcg IVP once Route: IVP; Site: right antecubital; kd3 03:00 Follow up: Response: No adverse reaction; Pain is decreased ss12 02:27 Drug: Ondansetron IVP 4 mg IVP once; over 2 minutes Route: IVP; Site: right antecubital;kd3 03:00 Follow up: Response: No adverse reaction; Nausea is decreased ss12 02:27 Drug: Diazepam PO 2 mg PO once Route: PO; kd3 03:00 Follow up: Response: No adverse reaction ss12 Medication: 01:23 VIS not applicable for this client. kd3 Outcome: 03:45 Decision to Hospitalize by Provider. sp4 08:05 Patient left the ED. iw Signatures: Dispatcher [employer] EDMS Nereida Fuentes RN RN iw Génesis Brewer RN RN kd3 Johnny Anthony MD MD sp4 Anju Beyer 2 Natalia Fisher RN RN ss12
--- NOTE | 2024-12-27 03:46 | EDPHYS ---
Physician Documentation [facility] Name: Blanka Parker Age: 79 yrs Sex: Female : 1945 Arrival Date: 12/27/2024 Time: 00:46 Bed 7 Private MD: ED Physician Johnny Anthony HPI: 12/27 01:09 This 79 yrs old Other Race Female presents to ER via Unassigned with complaints of Pt sp4 states she is AFIB. 05:10 79-year-old female presents with acute onset of chest pain and palpitations. Patient sp4 has past medical history of anxiety, atrial fibrillation, watchman's device, diverticulitis, GERD, hypertension, hyperlipidemia. 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 Historical: - Allergies: 01:21 Codeine; kd3 01:21 COLLAGENASE; kd3 01:21 Demerol; kd3 01:21 hydromorphone; kd3 01:21 Lidocaine; kd3 01:21 Mfbqico-Jgh-Ewp Reductase Inhibitors; kd3 01:21 PENICILLINS; kd3 01:21 venlafaxine; kd3 01:21 Zanaflex; kd3 01:21 Sulfa (Sulfonamide Antibiotics); kd3 - Home Meds: 04:13 amlodipine-olmesartan Oral [Active]; ss12 - PMHx: 01:21 Anxiety; Diverticulitis; degenerative joint disease; GERD; Hypertension; High kd3 Cholesterol; - PSHx: 01:21 Appendectomy; bladder sling; neck fusion X 2; Right hip; Cholecystectomy; back; kd3 hysterectomy; - Immunization history:: Adult Immunizations up to date. - Infectious Disease History:: Denies. - Social history:: Smoking status: Patient reports the use of cigarette tobacco products, smokes one-half pack cigarettes per day. - Family history:: not pertinent. ROS: 01:12 Constitutional: Negative for fever, chills, and weight loss, positive chest pain, sp4 positive palpitations 01:12 All other systems are negative, Exam: 05:07 Constitutional: This is a well developed, well nourished patient who is awake, alert, sp4 and in no acute distress. Head/Face: Normocephalic, atraumatic. Eyes: Pupils equal round and reactive to light, extra-ocular motions intact. Lids and lashes normal. Conjunctiva and sclera are not injected. Cornea within normal limits. Periorbital areas with no swelling, redness, or edema. ENT: Nares patent. No nasal discharge, no septal abnormalities noted. Tympanic membranes are normal and external auditory canals are clear. Oropharynx with no redness, swelling, or masses, exudates, or evidence of obstruction, uvula midline. Mucous membranes moist. Neck: Trachea midline, no thyromegaly or masses palpated, and no cervical lymphadenopathy. Supple, full range of motion without nuchal rigidity, or vertebral point tenderness. Chest/axilla: Normal chest wall appearance and motion. Nontender with no deformity. No lesions are appreciated. Cardiovascular: Regular rate and rhythm with a normal S1 and S2. No gallops, murmurs, or rubs. No pulse deficits. Respiratory: Lungs have equal breath sounds bilaterally, clear to auscultation and percussion. No rales, rhonchi or wheezes noted. No increased work of breathing, no retractions or nasal flaring. Abdomen/GI: Soft, with normal bowel sounds. No distension or tympany. No guarding or rebound. No evidence of tenderness throughout. Back: No spinal tenderness. No costovertebral tenderness. Skin: Warm, dry with normal turgor. Normal color with no rashes, no lesions, and no evidence of cellulitis. MS/ Extremity: Pulses equal, no cyanosis. Neurovascular intact. Full, normal range of motion. Neuro: Awake and alert, GCS 15, oriented to person, place, time, and situation. Cranial nerves II-XII grossly intact. Motor strength 5/5 in all extremities. Sensory grossly intact. Psych: Awake, alert, with orientation to person, place and time. Behavior, mood, and affect are within normal limits 05:07 ECG was reviewed by the Attending Physician. EKG at 0112 EKG at reveals sinus rhythm first-degree AV block rate 97 Vital Signs: 01:19 BP 143 / 69; Pulse 94; Resp 16; Temp 98.2(O); Pulse Ox 95% on R/A; kd3 01:43 BP 127 / 55; Pulse 93; Resp 16; Pulse Ox 97% on R/A; kd3 02:00 BP 160 / 69; Pulse 93; Resp 19; Pulse Ox 98% on R/A; ss12 03:00 BP 143 / 69; Pulse 88; Resp 18; Pulse Ox 97% on R/A; ss12 04:00 BP 131 / 68; Pulse 77; Resp 18; Pulse Ox 99% on R/A; ss12 05:12 BP 134 / 63; Pulse 79; Resp 16; Pulse Ox 99% on 2 lpm NC; kd3 Gama Coma Score: 05:07 Eye Response: spontaneous(4). Motor Response: obeys commands(6). Verbal Response: sp4 oriented(5). Total: 15. MDM: 01:10 Medical Screening Exam initiated sp4 05:10 Differential diagnosis: acute myocardial infarction, acute pericarditis, anxiety, sp4 coronary artery disease congestive heart failure esophagitis, gastritis. HEART Score: History: Moderately Suspicious (1), ECG: Non specific repolarization disturbance / LBTB / PM (1), Age: > or = 65 years (2), Risk Factors: > or = 3 Risk factors for atherosclerotic disease (2), Troponin: < or = 1 x Normal Limit (0), Total Score = 6. The patient was not given aspirin in the Emergency Department. Aspirin not given, patient refused. Data reviewed: vital signs, nurses notes, EMS record, old medical records, lab test result(s), EKG, radiologic studies. ED course: TECHNIQUE: Frontal view of the chest. COMPARISON: XR Chest dated December 01 2024 FINDINGS: LUNGS: Unremarkable. No consolidation. PLEURAL SPACE: Unremarkable. No pneumothorax. HEART: Unremarkable. No cardiomegaly. MEDIASTINUM: Unremarkable. Normal mediastinal contour. BONES/JOINTS: Multilevel degenerative change of the spine is present. No acute fracture. VASCULATURE: Atherosclerosis of the aorta is present. UPPER ABDOMEN: Unremarkable as visualized. IMPRESSION: No acute cardiopulmonary process.. 12/27 01:10 Order name: Basic Metabolic Panel; Complete Time: 03:40 sp4 12/27 01:10 Order name: CBC with Diff; Complete Time: 05:15 sp4 12/27 01:10 Order name: LFT's; Complete Time: 03:40 sp4 12/27 01:10 Order name: Magnesium; Complete Time: 03:40 sp4 12/27 01:10 Order name: NT PRO-BNP; Complete Time: 03:40 sp4 12/27 01:10 Order name: PT-INR; Complete Time: 03:40 sp4 12/27 01:10 Order name: Troponin HS; Complete Time: 03:40 sp4 12/27 02:27 Order name: Manual Differential; Complete Time: 05:15 EDMS 12/27 04:56 Order name: CBC with Automated Diff EDMS 12/27 04:56 Order name: CBC with Automated Diff EDMS 12/27 04:56 Order name: Comprehensive Metabolic Panel EDMS 12/27 04:56 Order name: Comprehensive Metabolic Panel EDMS 12/27 01:10 Order name: XRAY Chest (1 view); Complete Time: 00:45 sp4 12/27 01:01 Order name: EKG; Complete Time: 01: sb4 12/27 01:01 Order name: EKG - Nurse/Tech; Complete Time: sb4 12/27 01:10 Order name: Cardiac monitoring; Complete Time: : sp4 12/27 01:10 Order name: IV Saline Lock; Complete Time: :45 sp4 12/27 01:10 Order name: Labs collected and sent; Complete Time: sp4 12/27 01:10 Order name: O2 Per Protocol; Complete Time: sp4 12/27 01:10 Order name: O2 Sat Monitoring; Complete Time: : sp4 EC:12 Rate is 97 beats/min. Rhythm is regular, Sinus Rhythm. QRS [place] is Normal. MS interval sp4 is prolonged. QRS interval is normal. QT interval is normal. No Q waves. T waves are Normal. No ST changes noted. Clinical impression: No evidence of ischemia. Interpreted by me. Reviewed by me. Administered Medications: 02:27 Drug: Pantoprazole IVP 40 mg IVP once Route: IVP; Site: right antecubital; kd3 03:00 Follow up: Response: No adverse reaction ss12 02:27 Drug: Sucralfate PO 1 grams PO once Route: PO; kd3 03:00 Follow up: Response: No adverse reaction ss12 02:27 Drug: fentaNYL (PF) IVP 25 mcg IVP once Route: IVP; Site: right antecubital; kd3 03:00 Follow up: Response: No adverse reaction; Pain is decreased ss12 02:27 Drug: Ondansetron IVP 4 mg IVP once; over 2 minutes Route: IVP; Site: right antecubital;kd3 03:00 Follow up: Response: No adverse reaction; Nausea is decreased ss12 02:27 Drug: Diazepam PO 2 mg PO once Route: PO; kd3 03:00 Follow up: Response: No adverse reaction ss12 Disposition: 12/28 00:45 Chart complete. sp4 Disposition Summary: 12/27/24 03:45 Hospitalization Ordered Notes: Hospitalization Status: Observation sp4 Provider: Ed Cortez sp4 Location: Telemetry/MedSurg (observation) sp4 Condition: Stable sp4 Problem: new sp4 Symptoms: have improved sp4 Bed/Room Type: Standard sp4 Room Assignment: 407(12/27/24 08:04) dw Diagnosis - Unstable angina sp4 - Intermittent atrial fibrillation sp4 Forms: - Medication Reconciliation Form sp4 - SBAR form sp4 - Leadership Thank You Letter sp4 Signatures: Dispatcher [employer] EDMS Kamala Hinds Diana RN RN dw Génesis Brewer RN RN kd3 Sheree Leggett PA-C PAMichaelC sb4 Johnny Anthony MD MD sp4 Natalia Fisher RN RN ss12 Corrections: (The following items were deleted from the chart) 12/27 01:11 01:11 BASIC METABOLIC PANEL+C.LAB.BRZ ordered. EDMS EDMS 01:11 01:11 CBC+H.LAB.BRZ ordered. EDMS EDMS 01:11 01:11 HEPATIC FUNCTION+C.LAB.BRZ ordered. EDMS EDMS 01:11 01:11 MAGNESIUM+C.LAB.BRZ ordered. EDMS EDMS 01:11 01:11 PROBNP+C.LAB.BRZ ordered. EDMS EDMS 01:11 01:11 PROTIME (+INR)+COAG.LAB.BRZ ordered. EDMS EDMS 01:11 01:11 Troponin High Sensitivity+C.LAB.BRZ ordered. EDMS EDMS 01:11 01:11 Chest Single View+RAD.RAD.BRZ ordered. EDMS EDMS 07:22 03:45 sp4 bd 08:00 07:22 407 bd bd 08:04 08:00 408 bd dw
[2024-12-27 04:04] LABS: Differential Total Cells Count 100; Segmented Neutrophils 79 % (40-80)
[2024-12-27 04:05] LABS: Blood Morphology Comment NOTED (NOT SEEN); Microcytosis 1+
--- NOTE | 2024-12-27 04:51 | P.HP ---
Certification for Inpatient Patient admitted to: Observation With expected LOS: <2 Midnights Practitioner: I am a practitioner with admitting privileges, knowledge of patient current condition, hospital course, and medical plan of care. Services: Services provided to patient in accordance with Admission requirements found in Title 42 Section 412.3 of the Code of Federal Regulations Patient History Date of Service: 12/27/24 Reason for admission: Palpitation History of Present Illness: 79 yrs old Female with past medical history of anxiety, hyperlipidemia, hypertension, degenerative disc disease, history of diverticulitis, GERD, history of paroxysmal A-fib who was brought to ER with palpitations and chest discomfort. insidious onset. She felt all of a sudden her heart palpitations started. It was irregularly irregular associated with some shortness of breath and heaviness in the chest. No radiation. No fever or chills. No sick contacts. Denies any diaphoresis. It was pressure-like feeling in the chest which subsided very quickly. She was brought over to the ER. At the time of interview patient does not have any chest pain. Palpitations stopped and was s een as sinus rhythm. Patient was assessed in the ER and is admitted for further management of paroxysmal A-fib Allergies Rgfjhha-JQP-ExQ Reductase Inhibitor [Nbrjngs-Txk-Fah Reductase Inhibitor] Allergy (Unknown, Verified 09/03/22 06:31) Leg Cramps Sulfa (Sulfonamide Antibiotics) Allergy (Unknown, Verified 09/03/22 06:31) low blood pressure adhesive tape Allergy (Verified 09/03/22 06:31) Itching meperidine HCl [From Demerol] Allergy (Verified 09/03/22 06:31) Anaphylaxis Penicillins Allergy (Verified 09/03/22 06:31) Unknown tizanidine HCl [From Zanaflex] Allergy (Verified 09/03/22 06:31) Anaphylaxis lidocaine Adverse Reaction (Severe, Verified 09/03/22 06:31) syncope codeine [Codeine] Adverse Reaction (Verified 09/03/22 06:31) Palpitations Latex, Natural R Allergy (Uncoded 09/03/22 06:31) Unknown Home medications list reviewed: Yes Home Medications: Amlodipine [Norvasc*] 10 mg PO DAILY 08/29/22 Zolpidem Tartrate [Ambien*] 10 mg PO BEDTIME 04/30/23 Citalopram [Celexa*] 20 mg PO BEDTIME 05/27/24 Cyclobenzaprine [Flexeril*] 10 mg PO TIDP PRN 05/27/24 Donepezil [Aricept*] 5 mg PO BEDTIME 05/27/24 Famotidine 20 mg PO BID 05/27/24 Rosuvastatin [Crestor*] 5 mg PO BEDTIME 05/27/24 Apixaban [Eliquis] 5 mg PO BID #60 tablet 05/28/24 Metoprolol Tartrate [Lopressor*] 25 mg PO BID #60 tab 05/28/24 - Past Medical/Surgical History Diabetic: No Past Medical History: Reviewed- Non-Contributory -: GERD -: HTN -: Hyperlipidemia -: Skin cancer -: DJD -: Insomnia -: Recurrent diverticulitis Past Surgical History: Reviewed- Non-Contributory -: lap beulah -: lap appy -: partial hyst -: foot surgery -: neck surgery -: back surgery -: Bladder suspension Psychosocial/ Personal History: Patient lives at home with her , adequate in-home care. - Family History Mother -: Lung disease, Other (see notes) Notes: emphysema, ALZHEIMERS Father -: Heart disease Notes: congenital Brother -: Other (see notes) Notes: ALZHEIMER'S Sister -: Other (see notes) Notes: ALZHEIMER'S - Social History Smoking Status: Former smoker Alcohol use: No CD- Drugs: No Caffeine use: Yes Review of Systems 10-point ROS is otherwise unremarkable Physical Examination - Vital Signs Temperature: 98.2 F Blood Pressure: 136/78 Pulse: 84 Respirations: 18 Pulse Ox (%): 94 - Physical Exam General: Alert, In no apparent distress, Oriented x3 HEENT: Atraumatic, Normocephalic Neck: Supple Respiratory: Clear to auscultation bilaterally, Normal air movement Cardiovascular: Regular rate/rhythm, Normal S1 S2 Capillary refill: <2 Seconds Gastrointestinal: Soft and benign, W/out hepatosplenomegaly Musculoskeletal: No clubbing Integumentary: No rashes Neurological: Other (Awake alert nonfocal) Lymphatics: No axilla or inguinal lymphadenopathy - Studies Laboratory Data (last 24 hrs) 12/27/24 12/27/24 12/27/24 01:39 01:39 01:39 WBC 4.90 Hgb 11.4 L Hct 33.2 L Plt Count 230 PT 14.8 H INR 1.32 Sodium 142 Potassium 3.3 L BUN 16 Creatinine 1.14 H Glucose 260 H Magnesium 1.6 Total Bilirubin 0.2 AST < 10 L ALT 17 Alkaline Phosphatase 80 Assessment and Plan - Plan Paroxysmal A-fib A-fib with RVR Monitor closely under telemetry Cardiology consult Chest pain rule out ACS Will trend cardiac enzymes Will monitor telemetry Hypertension Antihypertensives titrated Continue home medications and titrate as needed Hyperlipidemia Continue statin GI/DVT prophylaxis Advanced directive full code Discharge Plan: Home Plan to discharge in: 48 Hours - Advance Directives Does patient have a Living Will: No Does patient have a Durable POA for Healthcare: No - Code Status/Comfort Care Code Status: Full Code Time Spent Managing Pts Care (In Minutes): 48
[2024-12-27] MEDS ORDERED: ACETAMINOPHEN 325 MG TABLET PO PRN (04:52)
[2024-12-27] MEDS ORDERED: ONDANSETRON 4 MG/2 ML VIAL IV PRN (07:50)
[2024-12-27 09:12] VITALS: O2SAT 95
[2024-12-27] MEDS: AMLODIPINE 10 MG TAB PO SCH (09:28)
[2024-12-27] MEDS: APIXABAN 5 MG TABLET PO SCH (09:28)
[2024-12-27] MEDS: POTASSIUM CL SA 10 MEQ TAB PO ONE (09:29)
[2024-12-27 09:57] VITALS: BMI 31.1
--- NOTE | 2024-12-27 17:38 | P.DS ---
Admission Date: 12/27/24 Discharge Date: 12/27/24 Reason for Admission: Palpitation Brief History of Present Illness: 79 yrs old Female with past medical history of anxiety, hyperlipidemia, hypertension, degenerative disc disease, history of diverticulitis, GERD, history of paroxysmal A-fib who was brought to ER with palpitations and chest discomfort. insidious onset. She felt all of a sudden her heart palpitations started. It was irregularly irregular associated with some shortness of breath and heaviness in the chest. No radiation. No fever or chills. No sick contacts. Denies any diaphoresis. It was pressure-like feeling in the chest which subsided very quickly. She was brought over to the ER. At the time of interview patient does not have any chest pain. Palpitations stopped and was seen as sinus rhythm. Patient was assessed in the ER and is admitted for further management of paroxysmal A-fib Hospital Course: Assessment and Plan - Plan 12/27/2024 - She remains in sinus rhythm, on Eliquis - No acute events overnight - Follow-up with cardiology as outpatient - Troponin levels were flat - Resume home blood pressure medications including amlodipine - Continue statin Paroxysmal A-fib A-fib with RVR Monitor closely under telemetry Cardiology consult Chest pain rule out ACS Will trend cardiac enzymes Will monitor telemetry Hypertension Antihypertensives titrated Continue home medications and titrate as needed Hyperlipidemia Continue statin GI/DVT prophylaxis Advanced directive full code Discharge Plan: Home Plan to discharge in: 48 Hours - Advance Directives Does patient have a Living Will: No Does patient have a Durable POA for Healthcare: No - Code Status/Comfort Care Code Status: Full Code Same-day discharge Vital Signs/Physical Exam: Temp Pulse Resp BP Pulse Ox 97.8 F 65 18 145/65 H 97 12/27/24 11:59 12/27/24 11:59 12/27/24 11:59 12/27/24 11:59 12/27/24 11:59 Laboratory Data at Discharge: WBC 4.90 thou/uL (4.3-10.9) 12/27/24 01:39 Hgb 11.4 g/dL (12.0-15.0) L 12/27/24 01:39 Hct 33.2 % (36.0-45.0) L 12/27/24 01:39 Plt Count 230 thou/uL (152-406) 12/27/24 01:39 PT 14.8 SECONDS (10-13.0) H 12/27/24 01:39 INR 1.32 12/27/24 01:39 Sodium 142 mEq/L (136-145) 12/27/24 01:39 Potassium 4.4 mEq/L (3.5-5.1) D 12/27/24 10:40 BUN 16 mg/dL (7-18) 12/27/24 01:39 Creatinine 1.14 mg/dL (0.55-1.02) H 12/27/24 01:39 Glucose 260 mg/dL (74-106) H 12/27/24 01:39 Magnesium 1.6 mg/dL (1.6-2.4) 12/27/24 01:39 Total Bilirubin 0.2 mg/dL (0.2-1.0) 12/27/24 01:39 AST < 10 U/L (15-37) L 12/27/24 01:39 ALT 17 U/L (13-56) 12/27/24 01:39 Alkaline Phosphatase 80 U/L (45-117) 12/27/24 01:39 Home Medications: Amlodipine [Norvasc*] 10 mg PO DAILY 08/29/22 Zolpidem Tartrate [Ambien*] 10 mg PO BEDTIME 04/30/23 Citalopram [Celexa*] 20 mg PO BEDTIME 05/27/24 Cyclobenzaprine [Flexeril*] 10 mg PO TIDP PRN 05/27/24 Donepezil [Aricept*] 5 mg PO BEDTIME 05/27/24 Famotidine 40 mg PO BEDTIME 05/27/24 Rosuvastatin [Crestor*] 5 mg PO BEDTIME 05/27/24 Apixaban [Eliquis] 5 mg PO BID #60 tablet 05/28/24 Metoprolol Tartrate [Lopressor*] 25 mg PO BID #60 tab 05/28/24 Omeprazole Magnesium [Prilosec Otc] 20 mg PO DAILY 12/27/24 Followup: Florinda Mcintyre DO [Primary Care Provider] -
[2024-12-27 17:48] VITALS: BP 146/72; TEMP 97.6
[2024-12-27] MEDS ORDERED: DONEPEZIL HCL 5 MG TAB PO SCH (21:00)
[2024-12-27] MEDS ORDERED: ROSUVASTATIN 5 MG TAB PO SCH (21:00)
[2024-12-27] MEDS ORDERED: ZOLPIDEM TARTRATE 10 MG TABLET PO SCH (21:00)
== END 2024-12-27 18:12 | disposition home or self-care (01) ==
LOC: ER 00:46 → ERHOLD 04:52 → 4TH 07:48
PROVIDERS: ADMIT Family Medicine; ATTEND Family Medicine
DX: I48.0 Paroxysmal atrial fibrillation (principal); R00.2 Palpitations; R07.9 Chest pain, unspecified; F41.9 Anxiety disorder, unspecified; E78.5 Hyperlipidemia, unspecified; I10 Essential (primary) hypertension; K21.9 Gastro-esophageal reflux disease without esophagitis; F17.210 Nicotine dependence, cigarettes, uncomplicated; Z88.0 Allergy status to penicillin; Z88.5 Allergy status to narcotic agent; Z88.2 Allergy status to sulfonamides; Z88.8 Allergy status to other drugs, medicaments and biological substances
CPT/HCPCS: 93005; 85025; 80048; 36415; 83735; 84132; 85610; 80076; 84484; 83880; 71045; 94760; 96375; 96374; 99284; J2470; J3010; J2405; G0378 ×3